=== PATIENT | male | born 1975 | race Caucasian/White ===

== ENCOUNTER → 2018-05-03 12:36 | Outpatient (REF) | payer MEDICAID, SELFPAY | LOC: LBN 12:36 | PROVIDERS: PCP Family Medicine; Visit Provider Family Medicine | DX: L08.9 Local infection of the skin and subcutaneous tissue, unspecified (principal); T14.8XXA Other injury of unspecified body region, initial encounter | CPT/HCPCS: 87077; 87070; 87186; 87205 ==

== ENCOUNTER 2019-10-10 04:18 | Emergency (ER) | payer SELFPAY ==
[2019-10-10] VITALS (72 sets, daily range): BP systolic 113–155; BP diastolic 68–99; PULSE 91–115; RESP 13–25; TEMP 36.4; O2SAT 90–99
--- NOTE | 2019-10-10 04:27 | ED.GENADUL_ITS ---
Discharge Plan Disposition Patient Disposition: HOME Condition: Good Discharge Details Chief Complaint: Chest Pain Clinical Impression: Nausea vomiting and diarrhea, Atypical chest pain, Odynophagia Primary Care Provider: Unknown,Unknown ED Provider: Nury Pereira Home Meds and New Rx's Prescriptions: New ondansetron 4 mg tablet,disintegrating 4 mg PO TID PRN (Reason: nausea and vomiting) Qty: 6 RF: 0 Continued sildenafil [Viagra] 100 MG tablet 0.5 - 1 tab PO As Directed Qty: 30 RF: 5 triamcinolone acetonide 15 GM cream 15 gm Topical TID PRNQty: 1 RF: 1 aspirin 325 MG tablet 325 mg PO DAILY Qty: 90 RF: 4 cyclobenzaprine 5 MG tablet 5 - 10 mg PO TID PRNQty: 30 RF: 0 lisinopril 5 MG tablet 5 mg PO DAILY Qty: 90 RF: 4 hydrochlorothiazide 12.5 MG capsule 12.5 mg PO DAILY Qty: 90 RF: 3 clotrimazole-betamethasone 15 GM cream 15 gm Topical BID Qty: 1 RF: 0 phenytoin sodium extended 100 MG capsule 100 mg PO 1 cap AM 2 caps PM Qty: 270 RF: 4 Metoprolol Succinate 50 MG TAB.ER.24H 50 mg PO DAILY Qty: 90 RF: 4 levothyroxine 200 mcg tablet 200 mcg PO DAILY Qty: 90 RF: 4 naproxen 500 mg tablet,delayed release (DR/EC) 500 mg PO BID Qty: 40 RF: 2 levothyroxine 50 mcg tablet 50 mcg PO DAILY Qty: 90 RF: 4 acetaminophen [Mapap Extra Strength] 500 MG tablet 500 mg PO PRN PRN (Reason: Pain) RF: 0 diltiazem HCl 360 mg Capsule,Extended Release 24 Hr 360 mg PO DAILY RF: 0 ranitidine HCl 150 mg Tablet 150 mg PO BID RF: 0 cholecalciferol (vitamin D3) [Vitamin D3] 25 mcg (1,000 unit) Tablet 2,000 unit PO DAILY RF: 0 lamotrigine 100 MG tablet 100 mg PO DIRECTED RF: 0 Discharge Instructions Instructions: Acute Nausea and Vomiting (ED), Acute Diarrhea (ED) Additional Instructions: Take the Zofran as needed and directed for nausea and vomiting. Drink plenty of fluids and get plenty of rest. Alternate tylenol and motrin as needed and directed for pain. Follow-up with your primary care doctor in 1 week. Return to the emergency department with any worsening or new concerning symptoms. Discharge Data Discharge Date/Time-TO BE ENTERED AT DEPARTURE: 10/10/19 11:54 Discharge Physician: Nury Pereira Medical Decision Making <Maxwell Sue MD - Last Filed: 10/13/19 23:04> Patient presenting with substernal chest pain in relation to 24 hours of vomiting and diarrhea with streaks of blood/hematemesis the last few times. Suspect chest pain more related to esophageal irritation than anything else. Doubt Boerhaave syndrome but with the multiple episodes of forceful vomiting and streaks of blood must consider. As such we will get CT chest and will evaluate for both PE and mediastinal air. Do not suspect dissection. No prior CAD known, just cardiomyopathy and mitral regurg. His EKG is a right bundle branch block but no acute ST changes. HEART score is 3 based on one point for EKG, one point for age and at one point for risk factors. We will hold off on aspirin because of the report of hematemesis. We will give Protonix and Zofran. 07:00 -patient laboratory studies are unremarkable. White count minimally elevated. Hematocrit normal. Electrolytes are fine other than magnesium being slightly low. Anion gap 14 likely from all the vomiting. Liver function is okay. First troponin negative. CT scan read by radiology as likely artifact as opposed to dissection in the ascending aorta. Again dissection was not really in the differential given his presentation. There is no PE. There is no mediastinal air or changes. Patient is feeling better. At this point just some throat discomfort from all the vomiting. Nausea is resolved. Will try some marco ezra. Repeat hemoglobin and hematocrit as well as troponin about 745 this morning. Patient will be signed out to oncoming physician for follow-up of labs and disposition. Suspect patient should be able to go home if tolerating fluids and repeat labs remain normal. Medical Records Medical records reviewed: Yes I reviewed the patient's medical records. Lab Data Lab results reviewed: Yes I reviewed the patient's lab results. ECG Data Attestation: I personally reviewed and interpreted this ECG (s) as follows: Prior ECG tracings: available for review Interpretation: Normal sinus rhythm at a rate of 96. Right bundle branch block present. No acute ST elevation or depression noted. New RBBB compared to last EKG done in 2018. <Nury Pereira DO - Last Filed: 10/10/19 11:55> 0800 -- please see Dr. Sue's note for initial presentation, exam and plan. 44-year-old male with history of obesity, hypertension, GERD, atrial fibrillation and cardiomyopathy presents with vomiting and diarrhea since yesterday. Patient recently started antibiotics for a dental infection. He states that during the vomiting last night, he developed substernal gnawing chest pain with radiation to his throat. He denies any shortness of breath or dizziness. He currently denies current chest pain complaining of only sore throat from frequent vomiting. Patient has had a cardiac work-up including 2- troponins. He has had 2 EKGs both of which have noted a new right bundle branch block and left anterior fascicular block which appear new compared to previous but with no acute ST ischemic changes. CT chest noted thoracic aneurysm and what appears to be artifact rather than dissection. History and presentation not consistent with ACS, dissection or PE. Per Dr. Sue's assessment, presentation appears likely consistent with GI rather than cardiac. Upon my evaluation I am in agreement with this assessment as patient has recently started antibiotics with subsequent vomiting and diarrhea likely causing GI irritation. Case endorsed to follow-up on repeat troponin and hemoglobin hematocrit. Oropharynx noted moderate uvular edema. No exudates. Patient has bilateral periorbital petechiae consistent with forceful vomiting. Will give a GI cocktail and dose of Decadron for uvular edema. 0900 --repeat troponin negative. Repeat hemoglobin and hematocrit within normal range. 0950 --patient's throat feels much better. Heart rate has been in the low 100s to 120s at times. Patient states he has not taken any of his regular medications for 2 days due to his symptoms. We will give him his regular diltiazem, metoprolol and lisinopril. Will finish remaining 500 cc of LR bag and reassess. 1130 --heart rate mid 90s. Patient given total 3 L of fluid. Patient feels much better and is requesting to go home. He denies any further vomiting and denies any chest pain. Patient had O2 saturations between 91 and 99%. Patient has a history of sleep apnea and was sleeping in the past hour. Patient is followed by Dr. Templeton and the [place]. He has a follow-up appointment with a primary care doctor within the next week. Usual and customary return precautions given prior to discharge. Medical Records Medical records reviewed: Yes I reviewed the patient's medical records. Imaging Data Radiologic Study: Radiologist's impression: CT Angiography Chest With Contrast Exam date and time: 10/10/2019 4:47 AM Age: 44 years old Clinical indication: Pain; Other: Pleuritic with hematemesis; Patient HX: Pleuritic cp with hematemesis x5hrs TECHNIQUE: Imaging protocol: Computed tomographic angiography of the chest with intravenous contrast. 3D rendering: MIP and/or 3D reconstructed images were created by the technologist. Radiation optimization: All CT scans at this facility use at least one of these dose optimization techniques: automated exposure control; mA and/or kV adjustment per patient size (includes targeted exams where dose is matched to clinical indication); or iterative reconstruction. Contrast material: [id number]; Contrast volume: 100 ml; Contrast route: IV LT AC 18G; COMPARISON: CR CHEST 2 VIEWS PA,LAT 04/14/2018 5:12 PM FINDINGS: Pulmonary arteries: At the level of the pulmonary artery, the ascending thoracic aorta measures 4.5 cm in diameter, which represents mild aneurysmal dilatation. There are curvilinear lucent lines through the ascending thoracic aorta that likely represent artifacts There are no filling defects in the pulmonary arteries to suggest pulmonary emboli. Aorta: Unremarkable. No aortic aneurysm. No aortic dissection. Lungs: Nonspecific bibasilar consolidation is present, consistent with atelectasis, edema, or pneumonia. Pleural space: Unremarkable. No pneumothorax. No pleural effusion. Heart: There is no pericardial effusion. Mediastinum: There is a small hiatal hernia. Lymph nodes: No enlarged mediastinal lymph nodes or masses identified. Bones/joints: The spine demonstrates mild degenerative changes at multiple levels. Soft tissues: Unremarkable. IMPRESSION: 1. Mild aneurysmal dilatation of the ascending thoracic aorta. There are multiple curvilinear in opacities in the ascending thoracic aorta that extend beyond the aortic wall and likely represent artifacts rather than dissection. 2. No evidence of pulmonary embolus. 3. A small hiatal hernia versus thickening of the distal esophagus. 4. Nonspecific atelectasis or consolidation of the lung bases. Lab Data Lab results reviewed: Yes I reviewed the patient's lab results. Labs: Laboratory Tests Range/Units 10/10/19 10/10/19 10/10/19 04:35 04:35 04:35 WBC (4.4-10.8) k/cumm 12.67 H RBC (4.50-6.00) m/cumm 4.60 Hgb (13.5-17.5) g/dL 15.6 Hct (40.0-50.0) % 44.2 MCV (80-95) fL 96.1 H MCH (27.0-33.0) pg 33.9 H MCHC (32.0-36.0) g/dL 35.3 RDW (11.8-14.1) % 12.0 Plt Count (130-400) x1000/uL 336 MPV (8.0-11.0) fL 9.2 Immature Gran % % 0.4 Neutrophils % 89.1 Lymphocytes % 4.3 Monocytes % 5.9 Eosinophils % 0.2 Basophils % 0.1 Absolute Neutrophils (1.2-6.7) k/cumm 11.29 H Absolute Lymphocytes (1.2-3.4) k/cumm 0.54 L Absolute Monocytes (0.11-0.7) k/cumm 0.75 H Absolute Eosinophils (0.0-0.7) k/cumm 0.03 Absolute Basophils (0.0-0.2) k/cumm 0.01 RBC Morphology See below Polychromasia Present PT (9.3-11.0) sec 10.8 INR (0.9-1.1) 1.1 APTT (21.0-31.4) sec 23.7 Sodium (136-145) mmol/L 136 Potassium (3.5-5.1) mmol/L 3.6 Chloride (98-107) mmol/L 95 L Carbon Dioxide (21.0-32.0) mmol/L 26.9 Anion Gap (3-11) mmol/L 14.1 H BUN (7-18) mg/dL 12 Creatinine (0.70-1.30) mg/dL 0.91 Estimated GFR/1.73 m2 (mL/min/1.73m2) >= 60.00 Glucose (74-106) mg/dL 102 Calcium (8.5-10.1) mg/dL 9.5 Magnesium (1.8-2.4) mg/dL 1.7 L Total Bilirubin (0.2-1.0) mg/dL 0.8 AST (15-37) U/L 47 H ALT (16-63) U/L 46 Alkaline Phosphatase (46-116) U/L 139 H Troponin I (<0.06) ng/Ml < 0.05 Total Protein (6.4-8.2) g/dL 8.1 Albumin (3.4-5.0) g/dL 4.4 Range/Units 10/10/19 10/10/19 07:45 07:45 WBC (4.4-10.8) k/cumm RBC (4.50-6.00) m/cumm Hgb (13.5-17.5) g/dL 14.9 Hct (40.0-50.0) % 41.1 MCV (80-95) fL MCH (27.0-33.0) pg MCHC (32.0-36.0) g/dL RDW (11.8-14.1) % Plt Count (130-400) x1000/uL MPV (8.0-11.0) fL Immature Gran % % Neutrophils % Lymphocytes % Monocytes % Eosinophils % Basophils % Absolute Neutrophils (1.2-6.7) k/cumm Absolute Lymphocytes (1.2-3.4) k/cumm Absolute Monocytes (0.11-0.7) k/cumm Absolute Eosinophils (0.0-0.7) k/cumm Absolute Basophils (0.0-0.2) k/cumm RBC Morphology Polychromasia PT (9.3-11.0) sec INR (0.9-1.1) APTT (21.0-31.4) sec Sodium (136-145) mmol/L Potassium (3.5-5.1) mmol/L Chloride (98-107) mmol/L Carbon Dioxide (21.0-32.0) mmol/L Anion Gap (3-11) mmol/L BUN (7-18) mg/dL Creatinine (0.70-1.30) mg/dL Estimated GFR/1.73 m2 (mL/min/1.73m2) Glucose (74-106) mg/dL Calcium (8.5-10.1) mg/dL Magnesium (1.8-2.4) mg/dL Total Bilirubin (0.2-1.0) mg/dL AST (15-37) U/L ALT (16-63) U/L Alkaline Phosphatase (46-116) U/L Troponin I (<0.06) ng/Ml < 0.05 Total Protein (6.4-8.2) g/dL Albumin (3.4-5.0) g/dL ECG Data Attestation: I personally reviewed and interpreted this ECG (s) as follows: Interpretation: #1 --Rate of 96, sinus, right bundle branch block and left anterior fascicular block. SC 154. QTc 521. QRS 160. #2 --Rate of 108, sinus, right bundle branch block, left anterior fascicular block. SC 146. QTc 423. QRS 156. HPI <Maxwell Sue MD - Last Filed: 10/13/19 23:04> General Mode of arrival: ambulatory . Date/Time Provider Initiated Documentation: 10/10/19 04:22 . Limitations to Documentation: no limitations . Information obtained by: patient, RN notes reviewed and old records reviewed . HPI Narrative: Patient presents to ED with complaint of substernal chest pain started about 1 AM. Patient has had nausea, vomiting and diarrhea for about 24 hours. He has had no abdominal pain. The last few times he has been vomiting tonight he has noticed streaks of blood. The pain in his chest does not radiate anywhere. Not really pleuritic in nature. Does not feel short of breath. Has no fever or abdominal pain. Has no leg pain or leg swelling. Has history of cardiomyopathy and mitral regurg with occasional atrial fibrillation. He is not on blood thinners but he does take aspirin. Has a history of hypertension but no other cardiac risk factors and has never had an [facility]. Related Data Home Medications Medication Instructions Recorded Confirmed acetaminophen [Mapap Extra 500 mg PO PRN PRN 04/21/13 10/10/19 Strength] sildenafil [Viagra] 0.5 - 1 tab PO As Directed #30 09/28/15 10/10/19 tab-cap triamcinolone acetonide 15 gm TOPICAL TID PRN #1 script 04/26/16 10/10/19 aspirin 325 mg PO DAILY #90 tab-cap 10/23/17 10/10/19 cyclobenzaprine 5 - 10 mg PO TID PRN #30 tab-cap 12/03/17 10/10/19 lisinopril 5 mg PO DAILY #90 tab-cap 01/07/18 10/10/19 hydrochlorothiazide 12.5 mg PO DAILY #90 tab-cap 04/05/18 10/10/19 clotrimazole-betamethasone 15 gm TOPICAL BID #1 tub 04/12/18 10/10/19 phenytoin sodium extended 100 mg PO 1 cap AM 2 caps PM #270 05/09/18 10/10/19 cap NS levothyroxine 200 mcg tablet 200 mcg PO DAILY #90 tab-cap 06/24/18 10/10/19 levothyroxine 50 mcg tablet 50 mcg PO DAILY #90 tab-cap 06/24/18 10/10/19 naproxen 500 mg tablet,delayed 500 mg PO BID #40 tab-cap 06/24/18 10/10/19 release cholecalciferol (vitamin D3) 2,000 unit PO DAILY 10/10/19 10/10/19 [Vitamin D3] diltiazem HCl 360 mg PO DAILY 10/10/19 10/10/19 lamotrigine 100 mg PO DIRECTED 10/10/19 10/10/19 ondansetron 4 mg PO TID PRN #6 tab 10/10/19 ranitidine HCl 150 mg PO BID 10/10/19 10/10/19 Previous Rx's Medication Instructions Recorded aspirin 325 mg PO DAILY #90 tab-cap 10/23/17 lisinopril 5 mg PO DAILY #90 tab-cap 01/07/18 hydrochlorothiazide 12.5 mg PO DAILY #90 tab-cap 04/05/18 clotrimazole-betamethasone 15 gm TOPICAL BID #1 tub 04/12/18 phenytoin sodium extended 100 mg PO 1 cap AM 2 caps PM #270 05/09/18 cap NS levothyroxine 200 mcg tablet 200 mcg PO DAILY #90 tab-cap 06/24/18 levothyroxine 50 mcg tablet 50 mcg PO DAILY #90 tab-cap 06/24/18 naproxen 500 mg tablet,delayed 500 mg PO BID #40 tab-cap 06/24/18 release ondansetron 4 mg PO TID PRN #6 tab 10/10/19 Allergies Allergy/AdvReac Type Severity Reaction Status Date / Time No Known Allergies Allergy Unverified 10/10/19 04:25 General Stated Complaint: Chest Pain JUSTINA: 2 Review of Systems <Maxwell Sue MD - Last Filed: 10/13/19 23:04> Narrative: 07/07 Review of Systems completed and is negative except as stated above in HPI (Systems reviewed: Const, Eyes, ENT, Resp, CV, GI, , MSK, Skin, Neuro) PFSH <Maxwell Sue MD - Last Filed: 10/13/19 23:04> Medical History Afib (Chronic) Cardiomyopathy (Chronic 07/30/08) Depression (Chronic) Essential hypertension (Chronic 08/07/13) GERD (gastroesophageal reflux disease) (Chronic 07/30/08) Hypothyroid (Chronic) Mitral valve regurgitation (Chronic 07/30/08) Obstructive sleep apnea syndrome in adult (Chronic 07/30/08) Seizure disorder (Chronic 03/17/13) Surgical History Cholecystectomy (Inactive) Vasectomy (Inactive) Family History Mother Diabetes Stroke Father Diabetes Essential hypertension Depression Heart disease Neoplasm Asthma Sister Depression Grandfather Heart disease Grandfather Heart disease Myocardial infarction Grandmother No problems noted. Grandmother Essential hypertension Heart disease Son No problems noted. 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 Elevated blood pressure otherwise normal vitals and normal room air pulse oximetry. Const: WDWN male in NAD. HEENT: NC/AT. Normal facial exam. Severe gingival hyperplasia. Eyes: Normal conjunctiva and sclera. Neck: Supple. Trachea midline. Lungs: Normal respiratory effort. Lungs are clear. No chest wall tenderness. Cor: RRR with loud murmur heard best at apex. Good radial pulses. GI: Soft. NT/ND. No guarding or rebound. Neuro: A+O x 3. Normal speech, mentation, gait. No gross motor or sensory deficit. Ext: No C/C/E. No calf tenderness. Skin: Warm and dry without rash. Course <Maxwell Sue MD - Last Filed: 10/13/19 23:04> Vital Signs Vital signs: Vital Signs Temperature 97.5 F L 10/10/19 04:20 Pulse 96 H 10/10/19 04:20 Respiratory Rate 18 10/10/19 04:20 Blood Pressure 152/99 H 10/10/19 04:20 Pulse Oximetry 99 10/10/19 04:20 Temperature 97.5 F L 10/10/19 04:20 Temperature Source Skin 10/10/19 04:20 Pulse 96 H 10/10/19 04:20 Respiratory Rate 18 10/10/19 04:20 Blood Pressure 152/99 H 10/10/19 04:20 Pulse Oximetry 99 10/10/19 04:20 Comment 10/10/19 04:20 Sign Out <Maxwell Sue MD - Last Filed: 10/13/19 23:04> Sign Out Data: Sign Out Comment: Repeat troponin and hematocrit pending. Second EKG unchanged from previous done earlier with continued right bundle branch block only. Anticipate discharge if hematocrit stable and troponin remains flat. Last updated by Maxwell Sue MD at 10/10/19 08:00
[2019-10-10] MEDS: Pantoprazole 40 MG VIAL IVP (04:56)
[2019-10-10] MEDS: Lactated Ringers 1,000 ML 1000 ML IV (04:56)
[2019-10-10] MEDS: Ondansetron 4 MG/2 ML VIAL IVP (04:59)
[2019-10-10 05:05] LABS: Abs Immature Grans 0.05 k/cumm (0.0-0.09); Absolute Basophil Count 0.01 k/cumm (0.0-0.2); Absolute Lymphocyte Count 0.54 k/cumm (1.2-3.4); Absolute Monocyte Count 0.75 k/cumm (0.11-0.7); Basophils % 0.1; Eosinophils % 0.2; Immature Grans % 0.4 %; Lymphocytes % 4.3; Mean Corpuscular Hemoglobin 33.9 pg (27.0-33.0); Mean Platelet Volume 9.2 fL (8.0-11.0); Monocytes % 5.9; Neutrophils % 89.1; Platelet Count 336 x1000/uL (130-400); White Blood Cell Count 12.67 k/cumm (4.4-10.8)
[2019-10-10 05:18] LABS: INR 1.1 (0.9-1.1); PTT Activated 23.7 sec (21.0-31.4); Prothrombin Time 10.8 sec (9.3-11.0)
[2019-10-10 05:20] LABS: ALT 46 U/L (16-63); AST 47 U/L (15-37); Albumin 4.4 g/dL (3.4-5.0); Alkaline Phosphatase 139 U/L (46-116); Anion Gap 14.1 mmol/L (3-11); BUN 12 mg/dL (7-18); Bilirubin, Total 0.8 mg/dL (0.2-1.0); CO2 26.9 mmol/L (21.0-32.0); CREATININE 0.91 mg/dL (0.70-1.30); Calcium 9.5 mg/dL (8.5-10.1); Chloride 95 mmol/L (98-107); Glucose 102 mg/dL (74-106); Magnesium 1.7 mg/dL (1.8-2.4); Potassium 3.6 mmol/L (3.5-5.1); Sodium 136 mmol/L (136-145); Total Protein 8.1 g/dL (6.4-8.2)
[2019-10-10 05:21] LABS: Troponin I < 0.05 ng/Ml (<0.06)
[2019-10-10 05:33] LABS: Absolute Eosinophil Count 0.03 k/cumm (0.0-0.7); Absolute Neutrophil Count 11.29 k/cumm (1.2-6.7); HCT 44.2 % (40.0-50.0)
[2019-10-10 05:34] LABS: HGB 15.6 g/dL (13.5-17.5); Mean Corp. HGB Concentration 35.3 g/dL (32.0-36.0); Mean Corpuscular Volume 96.1 fL (80-95)
[2019-10-10 05:37] LABS: Polychromasia Present
[2019-10-10] MEDS: Omnipaque 350 MG/ML 100 ML BTL IJ (05:40)
--- NOTE | 2019-10-10 05:48 | DI.CT_ITS ---
EXAM: CT CHEST PE CTA CLINICAL HISTORY: pleuritic chest pain; hematemesis TECHNIQUE: Post IV contrast. COMPARISON: CHEST 2 VIEWS PA,LAT from 04/14/2018 FINDINGS: Is mild respiratory motion at the lung bases. There is also motion at the level of the aortic root. No pulmonary emboli or aortic dissection is seen. There is mild dilatation of the ascending aorta to a maximal diameter of 4.5 cm. No coronary artery or aortic calcifications are seen. There appear s to be left ventricular hypertrophy as well as dilatation of the left atrium. There are no pleural or pericardial effusions. There are mild dependent changes in the lungs. No pneumothorax, mass or a denopathy is seen. Degenerative changes are noted in the spine. There is apparent thickening of the wall of the distal esophagus. The remainder of the visualized portions of the upper abdomen are unr emarkable. IMPRESSION: No evidence of pulmonary emboli or other acute abnormality.
[2019-10-10] MEDS: Lactated Ringers 1,000 ML 150 ML IV (06:12)
--- NOTE | 2019-10-10 06:30 | DI.VRAD_ITS ---
PROCEDURE INFORMATION: Exam: CT Angiography Chest With Contrast Exam date and time: 10/10/2019 4:47 AM Age: 44 years old Clinical indication: Pain; Other: Pleuritic with hematemesis; Patient HX: Pleuritic cp with hematemesis x5hrs TECHNIQUE: Imaging protocol: Computed tomographic angiography of the chest with intravenous contrast. 3D rendering: MIP and/or 3D reconstructed images were created by the technologist. Radiation optimization: All CT scans at this facility use at least one of these dose optimization techniques: automated exposure control; mA and/or kV adjustment per patient size (includes targeted exams where dose is matched to clinical indication); or iterative reconstruction. Contrast material: [id number]; Contrast volume: 100 ml; Contrast route: IV LT AC 18G; COMPARISON: CR CHEST 2 VIEWS PA,LAT 04/14/2018 5:12 PM FINDINGS: Pulmonary arteries: At the level of the pulmonary artery, the ascending thoracic aorta measures 4.5 cm in diameter, which represents mild aneurysmal dilatation. There are curvilinear lucent lines through the ascending thoracic aorta that likely represent artifacts There are no filling defects in the pulmonary arteries to suggest pulmonary emboli. Aorta: Unremarkable. No aortic aneurysm. No aortic dissection. Lungs: Nonspecific bibasilar consolidation is present, consistent with atelectasis, edema, or pneumonia. Pleural space: Unremarkable. No pneumothorax. No pleural effusion. Heart: There is no pericardial effusion. Mediastinum: There is a small hiatal hernia. Lymph nodes: No enlarged mediastinal lymph nodes or masses identified. Bones/joints: The spine demonstrates mild degenerative changes at multiple levels. Soft tissues: Unremarkable. IMPRESSION: 1. Mild aneurysmal dilatation of the ascending thoracic aorta. There are multiple curvilinear in opacities in the ascending thoracic aorta that extend beyond the aortic wall and likely represent artifacts rather than dissection. 2. No evidence of pulmonary embolus. 3. A small hiatal hernia versus thickening of the distal esophagus. 4. Nonspecific atelectasis or consolidation of the lung bases. Findings were discussed with LENCHO LINDO at 10/10/2019 6:29 AM EST. Dictated and Authenticated by: Samy Muñzi MD. Ordering:CHLOE Arreola MD
[2019-10-10 08:07] LABS: Troponin I < 0.05 ng/Ml (<0.06)
[2019-10-10 08:38] LABS: HCT 41.1 % (40.0-50.0); HGB 14.9 g/dL (13.5-17.5)
[2019-10-10] MEDS: Dexamethasone 10 MG/ML VIAL IVP (09:01)
[2019-10-10] MEDS: Lisinopril 5 MG TAB PO (10:30)
[2019-10-10] MEDS: Metoprolol CR 50 MG TABCR PO (10:30)
[2019-10-10] MEDS: dilTIAZem CD 180 MG CAPCR 360 MG PO (10:30)
[2019-10-10] MEDS: Normal Saline 1,000 ML 1000 ML IV (10:46)
== END 2019-10-10 11:54 | disposition home or self-care (01) ==
PROVIDERS: Emergency Medicine; Emergency Provider Physician Assistant
DX: R07.89 Other chest pain (principal); R11.2 Nausea with vomiting, unspecified; R19.7 Diarrhea, unspecified; R13.10 Dysphagia, unspecified; I10 Essential (primary) hypertension; I48.91 Unspecified atrial fibrillation
CPT/HCPCS: 36415; 71275; 80053; 93005; 96361; 96374; 96375; 99285; 83735; 84484; 85014; 85018; 85025; 85610; 85730; 93010; J1100; J2405; J3490

== ENCOUNTER 2022-09-23 13:56 | Emergency (ER) | payer OTHER, SELFPAY ==
[2022-09-23 14:47] VITALS: BP 162/92; PULSE 80; RESP 18; TEMP 37; O2SAT 99
--- NOTE | 2022-09-23 16:17 | ED.GENADUL_ITS ---
Discharge Plan Disposition Patient Disposition: Home Condition: Stable Discharge Details Clinical Impression: Abscess, dental Primary Care Provider: Unknown,Unknown ED Provider: Magdiel Cerda Home Meds and New Rx's Prescriptions: New amoxicillin-pot clavulanate 875-125 mg tablet 1 tab PO Q12H 7 Days Qty: 14 0RF Continued sildenafil [Viagra] 100 MG tablet 0.5 - 1 tab PO As Directed Qty: 30 Rx Instructions: 1/2 to 1 tab 2 hours before intercourse aspirin 325 MG tablet 325 mg PO DAILY Qty: 90 4RF cyclobenzaprine 5 MG tablet 5 - 10 mg PO TID PRNQty: 30 Rx Instructions: Take 1 to 2 tabs by mouth 3 times a day as needed for pain. Take first dose at home so you know how your body reacts lisinopril 5 MG tablet 5 mg PO DAILY Qty: 90 4RF hydrochlorothiazide 12.5 MG capsule 12.5 mg PO DAILY Qty: 90 3RF phenytoin sodium extended 100 MG capsule 100 mg PO 1 cap AM 2 caps PM Qty: 270 4RF Rx Instructions: Dilantin NAME BRAND ONLY Metoprolol Succinate 50 MG TAB.ER.24H 50 mg PO DAILY Qty: 90 4RF acetaminophen [Mapap Extra Strength] 500 MG tablet 500 mg PO PRN PRN (Reason: Pain) levothyroxine 50 mcg tablet 150 mcg PO DAILY Rx Instructions: Take with 200 mcg tablet naproxen 500 mg tablet,delayed release (DR/EC) 500 mg PO BID PRN diltiazem HCl 360 mg Capsule,Extended Release 24 Hr 360 mg PO DAILY cholecalciferol (vitamin D3) [Vitamin D3] 25 mcg (1,000 unit) Tablet 2,000 unit PO DAILY lamotrigine 100 MG tablet 100 mg PO DIRECTED Rx Instructions: 300MG QAM, 400MG QPM Discharge Instructions Instructions: Dental Abscess (ED) Additional Instructions: Please perform salt water rinses at least 3 times daily. You may gently massage the swollen area to assist with draining of the abscess. If you develop any new or worsening symptoms please return immediately to the emergency department. Please continue to take your antibiotic until fully gone unless directed otherwise by your dental provider. Please keep your follow-up appointment with your dentist for later this week. Discharge Data Discharge Date/Time-TO BE ENTERED AT DEPARTURE: 09/23/22 16:30 Medical Decision Making Patient with dental abscess to tooth number 28. . no signs of deep neck space i nfection ( Retropharyngeal abscess, Mikie's angina, Parapharyngeal space infection, Peritonsillar Abscess (ADMITTED ATTORNEYS)) or Epiglottitis. Pt non toxic and stable. Discussed risks would not benefit of procedure with patient who agreed to have needle drainage of the area. Patient placed upon Augmentin and patient already has appointment scheduled for later this week for definitive care of the dental fracture. After discussion of diagnosis and plan of care patient has no further needs, questions, or concerns and states clear understanding to return to the emergency department for any worsening symptoms. This documentation was generated using Sferra dictation system, please disregard any oddities of phrase or misspellings. HPI General Mode of arrival: ambulatory . Date/Time Provider Initiated Documentation: 09/23/22 15:49 . Limitations to Documentation: no limitations . Information obtained by: patient . History of Present Illness 47 year old M presents to the emergency department with the chief complaint of Dental pain, described as mild, Quality is described as aching, and is localized to the mouth. Patient started experiencing this day(s) (3) and it has been con stant. No relieving factors improve symptom(s), Patient notes no other symptoms.. Patient did receive the following treatments prior to arrival, NSAID Related Data Home Medications Medication Instructions Recorded Confirmed acetaminophen 500 mg tablet (Mapap 500 mg PO PRN PRN Pain 04/21/13 09/23/22 Extra Strength) sildenafil 100 mg tablet (Viagra) 0.5 - 1 tab PO As Directed #30 09/28/15 09/23/22 tab-caps aspirin 325 mg tablet 325 mg PO DAILY #90 tab-caps 10/23/17 09/23/22 cyclobenzaprine 5 mg tablet 5 - 10 mg PO TID PRN #30 tab-caps 12/03/17 09/23/22 lisinopril 5 mg tablet 5 mg PO DAILY #90 tab-caps 01/07/18 09/23/22 hydrochlorothiazide 12.5 mg capsule 12.5 mg PO DAILY #90 tab-caps 04/05/18 09/23/22 phenytoin sodium extended 100 mg 100 mg PO 1 cap AM 2 caps PM #270 05/09/18 09/23/22 capsule caps cholecalciferol (vitamin D3) 25 2,000 unit PO DAILY 10/10/19 09/23/22 mcg (1,000 unit) tablet (Vitamin D3) diltiazem HCl 360 mg capsule,24 360 mg PO DAILY 10/10/19 09/23/22 hr,extended release lamotrigine 100 mg tablet 100 mg PO DIRECTED 10/10/19 09/23/22 amoxicillin 875 mg-potassium 1 tab PO Q12H 7 days #14 tabs 09/23/22 clavulanate 125 mg tablet levothyroxine 50 mcg tablet 150 mcg PO DAILY 09/23/22 09/23/22 naproxen 500 mg tablet,delayed 500 mg PO BID PRN 09/23/22 09/23/22 release Previous Rx's Medication Instructions Recorded aspirin 325 mg tablet 325 mg PO DAILY #90 tab-caps 10/23/17 lisinopril 5 mg tablet 5 mg PO DAILY #90 tab-caps 01/07/18 hydrochlorothiazide 12.5 mg capsule 12.5 mg PO DAILY #90 tab-caps 04/05/18 phenytoin sodium extended 100 mg 100 mg PO 1 cap AM 2 caps PM #270 05/09/18 capsule caps amoxicillin 875 mg-potassium 1 tab PO Q12H 7 days #14 tabs 09/23/22 clavulanate 125 mg tablet Allergies Allergy/AdvReac Type Severity Reaction Status Date / Time No Known Allergies Allergy Unverified 09/23/22 14:52 General Stated Complaint: DentalOral JUSTINA: 4 Review of Systems Constitutional Constitutional: Denies chills and Denies fever(s) ENT Ears, Nose, Mouth, and Throat: Reports as per HPI, Denies change in voice, Reports dental pain, Denies dysphagia, Denies throat swelling and Denies tongue swelling Cardiovascular Cardiovascular: Denies chest pain and Denies dyspnea Respiratory Respiratory: Denies dyspnea, Denies stridor and Denies wheezing Gastrointestinal Gastrointestinal: Denies abdominal pain, Denies dysphagia, Denies nausea and Denies vomiting Integumentary/Breasts Skin/Breast: Denies rash Allergic/Immunologic Allergic/Immunologic: Denies throat swelling, Denies tongue swelling and Denies wheezing PFSH All Active Problems (Updated 09/23/22 @ 16:18 by Magdiel Cerda NP) Abscess, dental (Acute) Afib (Chronic) Depression (Chronic) Essential hypertension (Chronic 08/07/13) Seizure disorder (Chronic 03/17/13) Obstructive sleep apnea syndrome in adult (Chronic 07/30/08) Mitral valve regurgitation (Chronic 07/30/08) GERD (gastroesophageal reflux disease) (Chronic 07/30/08) Cardiomyopathy (Chronic 07/30/08) Hypothyroid (Chronic) Family History Mother Diabetes Stroke Father Diabetes Essential hypertension Depression Heart disease Neoplasm Asthma Sister Depression Grandfather Heart disease Grandfather Heart disease Myocardial infarction Grandmother No problems noted. Grandmother Essential hypertension Heart disease Son No problems noted. 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 Pets and animals: Yes Pets and animals: dog(s) What type of physical activity do you participate in: none Maribel/Cheondoism: Jewish Special maribel needs: No Do you feel safe at home: Yes Do you feel safe in your relationship?: Yes Exam Const General: cooperative Orientation: alert, awake and oriented x3 Limitations: mental status not altered HENMT Head: normal to inspection, normocephalic and atraumatic Ears: hearing grossly normal bilaterally, normal mastoids bilaterally and no periauricular adenopathy General nose exam: external nose normal Mouth: oropharynx normal, no drooling, no muffled voice, normal tongue and no trismus Teeth and gingiva: abnormal tooth or associated gingiva lower right second bicuspid tender, with associated gingival edema, with associated gingival fluctuance, enamel fractured and dentin fractured and caries Throat: posterior oropharynx normal, tonsils normal and uvula midline Eyes General: appearance normal, both eyes and all related structures Pupils: PERRL Neck Neck: normal visual inspection, full ROM, no lymphadenopathy, no meningeal signs, trachea midline, supple, no anterior neck swelling and no midline deformity Resp Effort & Inspection: normal respiratory effort and able to speak in complete sentences Course Vital Signs Vital signs: Vital Signs Temperature 37.0 C 09/23/22 14:47 Pulse 80 09/23/22 14:47 Respiratory Rate 18 09/23/22 14:47 Blood Pressure 162/92 H 09/23/22 14:47 Pulse Oximetry 99 09/23/22 14:47 Temperature 37.0 C 09/23/22 14:47 Temperature Source Tympanic 09/23/22 14:47 Pulse 80 09/23/22 14:47 Respiratory Rate 18 09/23/22 14:47 Respiratory Effort Non-Labored 09/23/22 14:50 Blood Pressure 162/92 H 09/23/22 14:47 Blood Pressure Position Sitting 09/23/22 14:47 Pulse Oximetry 99 09/23/22 14:47 Oxygen Delivery Method Room Air 09/23/22 14:47 Oxygen Flow Rate 0 09/23/22 14:47 Pain Level 3 09/23/22 14:55 Procedures Abscess I/D Site: Other (dental) Side (if applicable): Right Local Anesthetic: Lidocaine 1% Amount of anesthesia used (mL): 2 Technique: Needle Aspiration Amount of fluid expressed (mL): 2 Irrigation: No Packing used?: None
[2022-09-23] MEDS: Lidocaine 1% Multi-Dose 50 ML VIAL IJ (16:20)
[2022-09-23] MEDS: Amox. 875/Clav. 125, 2 TABS/BTL 1 TAB PO (16:20)
[2022-09-23] MEDS: Amoxicillin 875/Clav. 125 TAB PO (16:20)
== END 2022-09-23 16:30 | disposition home or self-care (01) ==
PROVIDERS: Emergency Provider Nurse Practitioner Family
DX: K04.7 Periapical abscess without sinus (principal)
CPT/HCPCS: 10060

== ENCOUNTER 2024-04-14 13:48 | Outpatient (CLI) | payer OTHER, SELFPAY ==
[2024-04-14 11:19] LABS: HCT 47.3 % (40.0-50.0); MCH 32.1 pg (27.0-33.0); MCHC 33.8 % (32.0-36.0); MCV 95 fL (80-95); MPV 8.7 fL (8.0-11.0); Platelet Count 212 10^3/uL (130-400); RBC 4.98 10^6/uL (4.36-5.78); RDW 13.6 % (11.8-14.1); RDW-SD 48.4 fL; WBC 4.43 10^3/uL (4.4-10.8)
[2024-04-14 12:04] LABS: INR 2.4 (0.9-1.1); Prothrombin Time 22.5 sec (9.1-11.1)
--- OUTSIDE RECORDS SUMMARY | 2024-04-14 13:53 | XMS_ITS | Referral Summary ---
Author Organization [facility] Address [address] [place] [address] Care Team Providers Care Bricklayer Supervisor Name Role Phone David Templeton MD Primary Care Provider [phone] Social History Tobacco Use Types Packs/Day Years Used Date Smoking Tobacco: Never Assessed Sex and Gender Information Value Date Recorded Sex Assigned at Not on file Gender Identity Not on file Sexual Orientation Not on file Plan of Treatment Not on file Care Teams Bricklayer Supervisor Relationship Specialty Start Date End Date David Templeton MD PCP - General 05/11/14
--- OUTSIDE RECORDS SUMMARY | 2024-04-14 13:53 | XMS_ITS | Encounter Summary ---
Author Organization [facility] Address [address] [place] [address] Care Team Providers Care Smelting Engineer Name Role Phone Angelia Templeton MD Primary Care Provider [phone] Encounter Details Date Type Department Care Team (Late st Contact Info) Description 11/17/2016 Results Only [facility] [place] [phone] Angelia Templeton MD [address] [place] [phone] Social History Tobacco Use Types Packs/Day Years Used Date Smoking Tobacco: Never Assessed Sex and Gender Information Value Date Recorded Sex Assigned at Not on file Gender Identity Not on file Sexual Orientation Not on file documented as of this encounter Plan of Treatment Not on file documented as of this encounter Procedures Procedure Name Priority Date/Time Associated Diagnosis Comments SURGICAL PATHOLOGY Routine 11/17/2016 8:47 EST documented in this encounter Results * SURGICAL PATHOLOGY (11/17/2016 8:47 EST) Pathology Report: SURGICAL PATHOLOGY REPORT Reports generated via electronic interface contain original data; however they are lacking the format of the original report. Caution should be taken when reading/interpret ing unformatted reports. Name: ? BISMARK MAR ? Accession #: ? [id number] ? : ? 1975 (Age: 41) ??M ? Collect Date: ? 11/17/2016 ? Location: ? [facility] ? Receive Date: ? 11/21/2016 ? Provider: ANGELIA TEMPLETON MD Copy to: ? Final Pathologic Diagnosis: SKIN OF LEG, LEFT LOWER, PUNCH BIOPSY: - Reactive epidermal changes with dermal fibrosis and pigment deposition. ??See comment. Comment: The biopsy shows reactive epidermal hyperplasia with mid dermal fibrosis. Within the area of fibrosis, there are numerous histiocytes containing granular brown-yellow pigment. ??The pigment includes both hemosiderin and melanin, as demonstrated on iron and Nelson-Oli stains. ??This combination of pigmentation can be seen with certain medications, most notably minocycline. Correlation with the clinical history is recommended. ??Although hemosiderin deposition is also seen in chronic venous stasis and other vasculopathies, the vessels do not have appreciable changes and the presence of melanin makes this less likely. ??(Dr. Pulido)/juancarlos Microscopic Description: Sections consist of a bisected punch biopsy of skin that includes subcutis. ??The stratum corneum has mild hyperkeratosis. ??The epidermis is acanthotic and shows reactive changes with a thickened granular layer. ??Superficially within the dermis, blood vessels are somewhat prominent and mildly dilated. ??There is minimal erythrocyte extravasation and inflammation. ??Deeper in the dermis, the collagen bundles appear somewhat thickened. ??There is an interstitial infiltrate of spindled and oval cells. ??The cells have abundant granular yellow-brown pigment. ??On sections prepared with iron stain, much of the pigment is staining. Similar features are also seen on sections prepared with Nelson-Oli stain. (Dr. Pulido)/juancarlos Document reviewed and electronically signed by: RYAN PULIDO MD Report ??Date: 11/23/2016 13:54 By the signature above, the attending physician certifies that he/she has personally conducted a gross and/or microscopic examination of the described specimens and rendered or confirmed the above diagnosis. Specimen(s) Received: Punch bx lesion left lower leg Clinical History: Not listed ? Gross Description: ? Received in formalin labelled with proper patient identification (initials D, D) and L leg is a punch biopsy of cano-frank skin (0.4 cm in diameter and 0.5 cm in thickness). Bisected and entirely submitted in 1. ABDULAZIZ Fuller (ASCP) 11/21/2016 2:38 PM End of Report [facility] 11/17/2016 8:47 EST 11/21/2016 8:47 EST Angelia Templeton MD PATHOLOGY ORDERABLES [facility] [address] [place] [address] documented in this encounter Visit Diagnoses Not on filedocumented in this encounter Care Teams Smelting Engineer Relationship Specialty Start Date End Date Angelia Templeton MD PCP - General 05/11/14 documented as of this encounter
--- OUTSIDE RECORDS SUMMARY | 2024-04-14 13:53 | XMS_ITS | Encounter Summary ---
Author Organization [facility] Address [address] [place] [address] Care Team Providers Care Charging Board Operator Name Role Phone David Templeton MD Primary Care Provider [phone] Encounter Details Date Type Department Care Team (Latest Contact Info) Description 11/17/2016 9:48 EST - 11/17/2016 23:59 EST Hospital Encounter [address] [address] Unknown, Provider, Discharge Disposition: Home or Self Care Social History Tobacco Use Types Packs/Day Years Used Date Smoking Tobacco: Never Assessed Sex and Gender Information Value Date Recorded Sex Assigned at Not on file Gender Identity Not on file Sexual Orientation Not on file documented as of this encounter Discharge Disposition Disposition Code Departure Means Destination Home or Self [facility]sp documented in this encounter Plan of Treatment Not on file documented as of this encounter Visit Diagnoses Not on filedocumented in this encounter Care Teams Charging Board Operator Relationship Specialty Start Date End Date David Templeton MD PCP - General 05/11/14 documented as of this encounter
--- OUTSIDE RECORDS SUMMARY | 2024-04-14 13:53 | XMS_ITS | Encounter Summary ---
Author Organization [facility] Address [address] [place] [address] Care Team Providers Care Spearer Name Role Phone Unavailable Primary Care Provider Unavailabl e Encounter Details Date Type Department Care Team (Latest Contact Info) Description 05/04/2014 17:03 EDT - 05/04/2014 23:59 EDT Hospital Encounter [address] [address] Unknown, Provider, Discharge Disposition: Home or Self Care Social History Tobacco Use Types Packs/Day Years Used Date Smoking Tobacco: Never Assessed Sex and Gender Information Value Date Recorded Sex Assigned at Not on file Gender Identity Not on file Sexual Orientation Not on file documented as of this encounter Discharge Disposition Disposition Code Departure Means Destination Home or Self Prison documented in this encounter Plan of Treatment Not on file documented as of this encounter Visit Diagnoses Not on filedocumented in this encounter
--- OUTSIDE RECORDS SUMMARY | 2024-04-14 13:53 | XMS_ITS | Clinical Summary ---
Author Organization [facility] Address [address] [place] [address] Care Team Providers Care Boat Operator Name Role Phone David Templeton MD Primary Care Provider [phone] Social History Tobacco Use Types Packs/Day Years Used Date Smoking Tobacco: Never Assessed Sex and Gender Information Value Date Recorded Sex Assigned at Not on file Gender Identity Not on file Sexual Orientation Not on file Plan of Treatment Health Maintenance Due Date Last Done Comments Hepatitis C Screen 1975 Hepatitis B Vaccine (1 of 3 - 19+ 3-dose series) 08/20 COVID-19 Vaccine (2022- season) 2023 Care Teams Boat Operator Relationship Specialty Start Date End Date David Templeton MD PCP - General 05/11/14
--- OUTSIDE RECORDS SUMMARY | 2024-04-14 13:54 | XMS_ITS | Encounter Summary ---
Author [place] [address] Care Team Providers Care Helicopter Pilot Instructor Name Role Phone David Templeton MD Primary Care Provider [phone] Encounter Details Date Type Department Care Team (Latest Contact Info) Description 08/15/2013 9:00 AM EST Ancillary Appointment [place] [phone] Michelle De [place], [place] PAF (paroxysmal atrial fibrillation) Social History Tobacco Use Types Packs/Day Years Used Date Smoking Tobacco: Never Smokeless Tobacco: Never Alcohol Use Standard Drinks/Week Comments No 0 (1 standard drink = 0.6 oz pur e alcohol) Sex and Gender Information Value Date Recorded Sex Assigned at Not on file Gender Identity Not on file Sexual Orientation Not on file documented as of this encounter Plan of Treatment Not on file documented as of this encounter Procedures Procedure Name Priority Date/Time Associated Diagnosis Comments RENAL DUPLEX COMPLETE Routine 08/15/2013 8:58 AM EST PAF (paroxysmal atrial fibrillation) documented in this encounter Results * Duplex Study Renal Arteries, Bilat (08/15/2013 8:58 AM EST) VB Text Report Department: Vascular Surgery Lab Patient: [id number] (BISMARK MAR) CPT Code: 13112 ICD-9: 401.9 Referring Physician: SHASHI MAREI Indication: ??Hypertension ICD9 Diagnosis Code: 401.9 Findings: Naz Renal Aorta ? PSV (cm/s): 107 ? EDV (cm/s): 16 ? RI: 0.85 Renal Artery Proximal, Right ? PSV (cm/s): 66 ? EDV (cm/s): 24 ? RAR-WI: 0.6 ? RI: 0.63 Renal Artery Mid, Right ? PSV (cm/s): 81 ? EDV (cm/s): 33 ? RAR-WI: 0.8 ? RI: 0.59 Renal Artery Distal, Right ? PSV (cm/s): 89 ? EDV (cm/s): 41 ? RAR-WI: 0.8 ? RI: 0.53 Upper Pole Renal Parenchyma, Right ? PSV (cm/s): 37 ? EDV (cm/s): 17 ? RI: 0.54 Mid Pole Renal Parenchyma, Right ? PSV (cm/s): 43 ? EDV (cm/s): 22 ? RI: 0.49 Renal Hilum, Right ? AT (ms): 13 Kidney Length, Right ? Length (cm): 11.9 Renal, Right ? Patent: Patent Renal Artery Proximal, Left ? PSV (cm/s): 111 ? EDV (cm/s): 42 ? RAR-WI: 1.0 ? RI: 0.62 Renal Artery Mid, Left ? PSV (cm/s): 109 ? EDV (cm/s): 36 ? RAR-WI: 1.0 ? RI: 0.67 Renal Artery Distal, Left ? PSV (cm/s): 70 ? EDV (cm/s): 23 ? RAR-WI: 0.7 ? RI: 0.67 Upper Pole Renal Parenchyma, Left ? PSV (cm/s): 23 ? EDV (cm/s): 13 ? RI: 0.44 Mid Pole Renal Parenchyma, Left ? PSV (cm/s): 33 ? EDV (cm/s): 10 ? RI: 0.69 Renal Hilum, Left ? PSV (cm/s): 61 ? EDV (cm/s): 25 ? RI: 0.60 ? AT (ms): 47 Kidney Length, Left ? Length (cm): 12.9 Interpretation: Right: Patent main renal artery with no evidence of hemodynamically significant stenosis. Left: Patent main renal artery with no evidence of hemodynamically significant stenosis. Comparison: ??No previous study in our vascular lab database for comparison. Electronically Signed by: WENDI RAMIREZ M.D. on 2013-08-15 11:50:12 AM [facility] VB Text Report End of Report [facility] 08/15/2013 8:58 AM EST Shashi Marie MD VASCULAR ORDERABLES [facility] documented in this encounter Visit Diagnoses Diagnosis PAF (paroxysmal atrial fibrillation) Atrial fibrillation documented in this encounter Care Teams Helicopter Pilot Instructor Relationship Specialty Start Date End Date David Templeton MD [address] [place] [address] PCP - General 08/01/13 documented as of this encounter
--- OUTSIDE RECORDS SUMMARY | 2024-04-14 13:54 | XMS_ITS | Encounter Summary ---
[place] [address] Care Team Providers Care Sustainability Specialist Name Role Phone David Templeton MD Primary Care Provider [phone] Encounter Details Date Type Department Care Team (Late st Contact Info) Description 12/10/2014 12:45 PM EDT [place] [id number] Alexa Moyre APRN [facility] [place] [address] High risk medication use; Partial symptomatic epilepsy with complex partial seizures, not intractable, without status epilepticus Discharge Disposition: Home Social History Tobacco Use Types Packs/Day Years Used Date Smoking Tobacco: Never Smokeless Tobacco: Never Alcohol Use Standard Drinks/Week Comments Yes 0 (1 standard drink = 0.6 oz pur e alcohol) seldom Sex and Gender Information Value Date Recorded Sex Assigned at Not on file Gender Identity Not on file Sexual Orientation Not on file documented as of this encounter Last Filed Vital Signs Vital Sign Reading Time Taken Comments Blood Pressure 136/74 12/10/2014 12:53 PM EDT Pulse 73 12/10/2014 12:53 PM EDT Temperature - - Respiratory Rate - - Oxygen Saturation - - Inhaled Oxygen Concentration - - Weight 131.4 kg (289 lb 11 oz) 12/10/2014 12:53 PM EDT Height 182.9 cm (6') 12/10/2014 12:53 PM EDT Body Mass Index 39.29 12/10/2014 12:53 PM EDT documented in this encounter Progress Notes * Alexa Moyer, MECHANICAL MAINTENANCE ENGINEER - 12/10/2014 1:17 PM EDT Subjective: [facility] OUTPATIENT FOLLOW UP NOTE Patient Active Problem List Diagnosis ??? Obesity ??? Atrial fibrillation with rapid ventricular response New Paroxysmal AFib, rapid VR when in afib Normal LV function EF= 70% Thickened Septum, ? HOCM On diltiazem drip-->Diltiazem Intermittent afib/sinus History of hypothyroidism, on replacement, normal TSH Sinus rhythm - 12 lead EKG 08/15/2011 ??? Possible Hypertrophic cardiomyopathy History of HTN HCM, non obstructive, EF~ 65=75% Echo 2004 Septal hypertrophy with WEST Echo 2005 Septal hypertrophy with obstruction at rest or exertion, no ischemia Grandfather of heart condition mid 50s 2 children, healthy, no work up ??? Hypothyroidism ??? CIS - possible obstructive sleep apnea ??? seizure disorder Long standing Followed by Neurology MRI- IMPRESSION: Several small foci of T2 hyperintensity in the deep white matter of the brain several of which are periventricular in location. Differential includes prior injury, demyelination, as well as possibly ischemic injury. Correlate with clinical symptoms. No evidence of mesiotemporal sclerosis.When compared with the previous study, there is no appreciable change. I saw Cole Mar today for a scheduled follow-up evaluation. Patient came to the office with his girlfriend Interval history (seizure type and frequency): The patient has had no seizures since last clinic visit which was over one year ago. He is tolerating his medication well. He has been cleared by his corncob pipes assembler to discontinue follow up. He has rare heart palpitations and his blood pressure has been under good control. He has gained almost 30 pounds however. His mood has improved. He has a new girlfriend and seems happy. He continues to live athis father's house with his son. 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 Social History: History Social History ??? Marital Status: Spouse Name: N/A Number of Children: N/A ??? Years of Education: N/A Occupational History ??? Not on file. Social History Main Topics ??? Smoking status: Never Smoker ??? Smokeless tobacco: Never Used ??? Alcohol Use: Yes Comment: seldom ??? Drug Use: No ??? Sexual Activity: Not on file Comment: deferred Other Topics Concern ??? Not on file Social History Narrative Seizure Control: QEpilepsy 12/09/2014 Last seizure was: More than 1 year ago Number of seizures in past month: - Were seizures disabling? 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 double vision Never 2. headache Rarely 3. rash Rarely 4. unsteadiness Rarely 5. upset stomach, nausea, vomiting Rarely 6. troubles with gums or teeth Sometimes 7. weight loss or gain Sometimes 8. tremors or shaking Never 9. restlessness Rarely 10. dizziness Never 11. tiredness/sleepiness Sometimes 12. trouble sleeping Sometimes 13. difficulties concentrating Rarely 14. feelings of aggression Never 15. depression Sometimes 16. thoughts about ending your life Never 17. palpitations or chest pains Often 18. bladder problems Sometimes 19. breathing problems Never Memory and concentration symptoms (QOLIE-31) QEPILEPSY QOLIE31 12/09/2014 Memory problems A little of the time Difficulty reasoning and solving problems A little of the time Trouble remembering things people tell A little of the time Trouble concentrating on reading A little of the time Trouble concentrating on doing one thing at a time A little of the time How much do your memory difficulties bother you? 2 QOLIE-31 8 (low scores suggest severe memory symptoms) Depression Score (NDDI-E) QEPILEPSY DEPRESSION SCORE 12/09/2014 Depression Score 7 (scores >15 suggest Major Depression) Quality of Life QEPILEPSY QOL 12/10/2014 Quality of Life (10-Best Quality of Life; 0-Worst Quality of Life) 7 Past Medical History Diagnosis Date ??? Hypertension ??? Hypothyroidism ??? Erectile dysfunction ??? Seizure ??? Atrial fibrillation Current Outpatient Prescriptions on File Prior to Visit Medication Sig Dispense Refill ? ? phenytoin (DILANTIN) 100 mg ER capsule Take 1 cap in am & 2 cap in pm on daily basis 90 tablet 5 ??? ranitidine (ZANTAC) 150 mg tablet Take 150 mg by mouth 2 times daily. ??? lamoTRIgine (LAMICTAL) 100 mg tablet Take 100 mg by mouth daily. 300mg/am 400mg/pm ??? Cholecalciferol, Vitamin D3, 5,000 unit Cap Take 10,000 Units by mouth daily. ??? sildenafil (VIAGRA) 100 mg tablet Take 100 mg by mouth as needed. ??? DILTiazem (CARDIZEM CD) 180 mg 24 hr capsule Take 1 capsule by mouth 2 times daily. 180 capsule3 ??? metoprolol succinate (TOPROL-XL) 100 mg XL tablet Take 1 tablet by mouth daily. 90 tablet 3 ??? hydrochlorothiazide (HYDRODIURIL) 12.5 mg tablet Take 12.5 mg by mouth daily. ??? levothyroxine (SYNTHROID) 200 mcg tablet Take 250 mcg by mouth daily. ??? aspirin (ENTERIC COATED ASPIRIN) 325 mg EC tablet Take 1 tablet by mouth daily. 30 tablet 3 ??? lisinopril (PRINIVIL;ZESTRIL) 5 mg tablet Take 5 mg by mouth daily. ??? [DISCONTINUED] LORazepam (ATIVAN) 1 mg tablet Take 1 mg by mouth 2 times daily. No current facility-administered medications on file prior to visit. No Known Allergies Objective: Blood pressure 136/74, pulse 73, height 182.9 cm (6'), weight 131.4 kg (289 lb 11 oz). Awake, alert, EOMI, No obvious tremor, gait stable, no obvious rash, mood is good. Assessment and Plan: - Epilepsy: Having rare seizures and actually has been seizure free for the past 15 months. Will continue present medications. - Screen for medication toxicity: I am checking CBC, LFTs, lamictal and dilantin levels - The patient is currently not a candidate for epilepsy surgery as seizures are well controlled. - Bone health: currently taking Ca and VIt D - Social and psychiatric issues: Depression has improved and he actually stopped taking his antidepressant. He is in a new relationship and seems happy - Patient counselled about sleep apnea. He is using his CPAP which has helped. - Prescriptions were renewed. - Patient will be seen again by the epilepsy team in 1 year. documented in this encounter Plan of Treatment Not on file documented as of this encounter Procedures Procedure Name Priority Date/Time Associated Diagnosis Comments LAMOTRIGINE LVL Routine 12/10/2014 1:47 PM EDT Partial symptomatic epilepsy with complex partial seizures, not intractable, without status epilepticus HEMOGRAM Routine 12/10/2014 1:47 PM EDT High risk medication use PHENYTOIN LEVEL, TOTAL AND FREE Routine 12/10/2014 1:47 PM EDT Partial symptomatic epilepsy with complex partial seizures, not intractable, without status epilepticus HEPATIC FUNCTION PANEL Routine 12/10/2014 1:47 PM EDT High risk medication use documented in this encounter Results * (ABNORMAL) Hepatic Function Panel (12/10/2014 1:47 PM EDT) Total Protein 7.6 6.1 - 8.0 gm/dL [facility] MILLENNI[facility] Albumin 4.5 3.2 - 5.2 gm/dL [facility] MILLENNIUM AST 22 0 - 39 unit/L [facility] MILLENNIUM ALT 34 0 - 55 unit/L [facility] MILLENNIUM Alk Phos 152(H) 40 - 120 unit/L [facility] MILLENNIUM Total Bilirubin 0.2 0.2 - 1.3 mg/dL [facility] MILLENNIUM Bili, Direct 0.1 0.0 - 0.3 mg/dL [facility] MILLENNIUM Blood specimen (specimen) 12/10/2014 1:47 PM EDT 12/10/2014 1:59 PM EDT Narrative Resulting Agency Comment Spec In Lab Richar Prabhakar MD CHEMISTRY ORDERABLES [facility] * (ABNORMAL) Hemogram (12/10/2014 1:47 PM EDT) WBC 6.4 4.0 - 10.0 x10(3)/mcL [facility]ERN[facility] MILLENNIUM RBC 4.81 4.63 - 6.08 x10(6)/mcL [facility] MILLENNI[facility] Hemoglobin 15.9 13.7 - 17.5 gm/dL [facility] MILLENNIUM Hematocrit 44.8 40.0 - 51.0 % CERNER MILLENNIUM MCV 93.1(H) 79.0 - 92.0 fL CERNER MILLENNIUM MCH 33.1(H) 25.6 - 32.2 pg CERNER MILLENNIUM MCHC 35.5 32.0 - 36.5 gm/dL CERNER MILLENNIUM Platelets 262 145 - 370 x10(3)/mcL CERNER MILLENNIUM RDWSD 44.6 35.0 - 46.0 fL CERNER MILLENNIUM RDWCV 13.1 10.9 - 14.4 % CERNER MILLENNIUM MPV 9.4 9.0 - 12.0 fL [facility] MILLENNIUM Blood specimen (specimen) 12/10/2014 1:47 PM EDT 12/10/2014 1:59 PM EDT Narrative Resulting Agency Comment Spec In Lab Richar Prabhakar MD HEMATOLOGY ORDERABLE S [facility] * (ABNORMAL) Phenytoin level, total and free (12/10/2014 1:47 PM EDT) Phenytoin Lvl 20.2(H) 10.0 - 20.0 mg/L [facility] MILLENNIUM Comment: Theraputic range: ??10-20 mg/L Toxic: ??> 25 mg/L Patients with renal dysfunction (e.g.creatinine clearance < 30 mls/min) may show falsely elevated results due to accumulation of metabolites in renal failure Phenytoin, Free 1.30 1.00 - 2.00 mg/L [facility]ERN[facility] MILLENNIUM Comment: Therapeutic range: ? Free phenytoin: ??1.00-2.00 mg/L ? % Free phenytoin: ??8-12% Toxic range: ? Free phenytoin: ??>3.00 mg/L This test was developed and its performance characteristics determined by [facility]. It has not been cleared or approved by the FDA. The laboratory is regulated under CLIA as qualified to perform high-complexity testing. This test is used for clinical purposes. It should not be regarded as investigational or for research. Phenytoin Free% 6(L) 8 - 12 % [facility]ERN ER MILLENNIUM Comment: This test was developed and its performance characteristics determined by [facility]. It has not been cleared or approved by the FDA. The laboratory is regulated under CLIA as qualified to perform high-complexity testing. This test is used for clinical purposes. It should not be regarded as investigational or for research. Blood specimen (specimen) 12/10/2014 1:47 PM EDT 12/10/2014 1:59 PM EDT Narrative Resulting Agency Comment Spec In Lab Richar Prabhakar MD CHEMISTRY ORDERABLES [facility]ERNER QUETAENNIUM * Lamotrigine Lvl (12/10/2014 1:47 PM EDT) Lamotrigine Lvl 2.4 2.5 - 15.0 mcg/mL [facility]ERNER MILLENNIUM Comment: Test Performed by: [facility], [place] [address] Mechanical Process Engineer: Minoo Nevarez, Ph.D. Blood specimen (specimen) 12/10/2014 1:47 PM EDT 12/10/2014 3:04 PM EDT Narrative Resulting Agency Comment Spec In Lab Richar Prabhakar MD CHEMISTRY ORDERABLES THERON LOVEIUM documented in this encounter Visit Diagnoses Diagnosis High risk medication use Encounter for long-term (current) use of other medications Partial symptomatic epilepsy with complex partial seizures, not intractable, without status epilepticus documented in this encounter Care Teams Sustainability Specialist Relationship Specialty Start Date End Date David Templeton MD [address] [place] [address] PCP - General 08/01/13 documented as of this encounter
--- OUTSIDE RECORDS SUMMARY | 2024-04-14 13:54 | XMS_ITS | Encounter Summary ---
[place] [address] Care Team Providers Care Manager Pacu Name Role Phone David Templeton MD Primary Care Provider [phone] Reason for Visit * Reason Onset Date Comments Medication Refill 08/11/2013 Encounter Details Date Type Department Care Team (Late st Contact Info) Description 08/11/2013 [place] [id number] Alexa Moyer APRN [facility] [place] [address] Epilepsy (Primary Dx) Social History Tobacco Use Types Packs/Day Years [...] documented as of this encounter Visit Diagnoses Diagnosis Epilepsy- Primary Unspecified epilepsy without mention of intractable epilepsy documented in this encounter Care Teams Manager Pacu Relationship Specialty Start Date End Date David Templeton MD [address] [place] [address] PCP - General 08/01/13 documented as of this encounter
--- OUTSIDE RECORDS SUMMARY | 2024-04-14 13:54 | XMS_ITS | Encounter Summary ---
[place] [address] Care Team Providers Care Oil Transport Driver Name Role Phone Debbie Dukes MD Primary Care Provider [phone] Reason for Visit * Reason Onset Date Comments Medication Refill 02/05/2013 Encounter Details Date Type Department Care Team (Late st Contact Info) Description 02/05/2013 [place] [address] Alexa Moyer APRN [facility] [address] [place] [address] Epilepsy (Primary Dx) Social History Tobacco Use [...] epilepsy documented in this encounter Care Teams Oil Transport Driver Relationship Specialty Start Date End Date Debbie Dukes MD [address] [place] [address] PCP - General 09/20/11 07/31/13 documented as of this encounter
--- OUTSIDE RECORDS SUMMARY | 2024-04-14 13:54 | XMS_ITS | Encounter Summary ---
[place] [address] Care Team Providers Care Legal Instruments Examiner Name Role Phone Debbie Dukes MD Primary Care Provider [phone] Reason for Visit * Reason Onset Date Comments Medication Refill 10/13/2012 Encounter Details Date Type Department Care Team (Late st Contact Info) Description 10/13/2012 [place] [phone] Debi Diop APRN [facility] [place] [address] Epilepsy (Primary Dx) Social History Tobacco Use Types Packs/Day Years Used Date Smoking Tobacco: Never Smokeless Tobacco: Never Alcohol Use Standard Drinks/Week Comments No 0 (1 standard drink = 0.6 oz pur e alcohol) Sex and Gender Information Value Date Recorded Sex Assigned at Not on file Gender Identity Not on file Sexual Orientation Not on file documented as of this encounter Miscellaneous Notes * Telephone Encounter - Aishwarya Arias LPN - 10/15/2012 4:12 PM EST Last appointment: 09/11/12 Next scheduled appointment: 03/12/13 Medication Name: Lamictal 100 mg tabs Dose: 2 tabs BID Date of Last Rx: 04/11/12 Amnt:120 # of Refills: 0 Left message for patient to call this office RE: patient comment below. * Telephone Encounter - Aishwarya Arias LPN - 10/14/2012 3:21 PM ESTFrom: Cole Mar To: Debi Diop APRN Sent: 10/13/2012 4:28 PM EST Subject: Medication Renewal Request Original authorizing provider: ZAY AMOR would like a refill of the following medications: lamoTRIgine (LAMICTAL) 100 mg tablet [DEBI DIOP APRN] Preferred pharmacy: [id number] Comment: I have 6 days left. I think I am to go on to 1 200 mg tablets twice a day. 1 morning 1 night. documented in this encounter Plan of Treatment Not on file documented as of this encounter Visit Diagnoses Diagnosis Epilepsy- Primary Unspecified epilepsy without mention of intractable epilepsy documented in this encounter Care Teams Legal Instruments Examiner Relationship Specialty Start Date End Date Debbie Dukes MD [address] [place] [address] PCP - General 09/20/11 07/31/13 documented as of this encounter
--- OUTSIDE RECORDS SUMMARY | 2024-04-14 13:54 | XMS_ITS | Encounter Summary ---
[place] [address] Care Team Providers Care Coagulating Operator Name Role Phone David Templeton MD Primary Care Provider Reason for Visit * Reason Onset Date Comments Other 07/30/2013 Encounter Details Date Type Department Care Team (Late st Contact Info) Description 07/30/2013 [place] [phone] Alexa Moyer APRN [facility] [place] [address] Other Social History Tobacco Use Types Packs/Day Years [...] encounter Miscellaneous Notes * Telephone Encounter - Kiara Lance LPN - 07/30/2013 11:47 AM EST Follow up call: I spoke to the pt to inform him that our providers prefer to have lab work ordered here after examining the pt at their annual appointment so in case they decide they want a particular lab ordered, the pt is having labs done twice . Pt understood and was agreeable with this plan. * Telephone Encounter - Desi Linda - 07/30/2013 11:13 AM EST Patient is scheduled for a follow up with Alexa Moyer on 10/22 and would like to have any labs needed done at [facility]) prior to his appointment. Please call patient to advise whenhe can go have the labs done. documented in this encounter Plan of Treatment Not on file documented as of this encounter Visit Diagnoses Not on filedocumented in this encounter Care Teams Coagulating Operator Relationship Specialty Start Date End Date David Templeton MD [address] [place] [address] PCP - General 08/01/13 documented as of this encounter
--- OUTSIDE RECORDS SUMMARY | 2024-04-14 13:54 | XMS_ITS | Encounter Summary ---
Author [place] [address] Care Team Providers Care Tank Car Mechanic Name Role Phone David Templeton MD Primary Care Provider [phone] Reason for Visit * Reason Onset Date Comments Medication Refill 08/11/2013 Encounter Details Date Type Department Care Team (Late st Contact Info) Description 08/11/2013 [place] [phone] Alexa Moyer APRN [facility] [address] Social History Tobacco Use Types Packs/Day Years [...] on filedocumented in this encounter Care Teams Tank Car Mechanic Relationship Specialty Start Date End Date David Templeton MD [address] [place] [address] PCP - General 08/01/13 documented as of this encounter
--- OUTSIDE RECORDS SUMMARY | 2024-04-14 13:54 | XMS_ITS | Encounter Summary ---
Author Organization [facility] [place] [address] Care Team Providers Care Marine Equipment Engineer Name Role Phone Debbie Dukes MD Primary Care Provider [phone] Encounter Details Date Type Department Care Team (Latest Contact Info) Description 03/14/2012 9:54 AM EDT - 03/14/2012 11:59 PM EDT Hospital Encounter [place] [address] CARDIO, ECHO SIXTY MIN APPT None Robby Allen MD [facility] [place] [address] AF (atrial fibrillation) Discharge Disposition: Home Social History Tobacco Use Types Packs/Day Years Used Date Smoking Tobacco: Never Smokeless Tobacco: Never Alcohol Use Standard Drinks/Week Comments Yes 0 (1 standard drink = 0.6 oz pur e alcohol) occasional glass of wine Sex and Gender Information Value Date Recorded Sex Assigned at Not on file Gender Identity Not on file Sexual Orientation Not on file documented as of this encounter Medications at Time of Discharge Medication Sig Dispensed Refills Start Date End Date metoprolol succinate (TOPROL-XL) 100 mg XL tabletIndications:Atr ial fibrillation Take 1 tablet by mouth daily. 90 tablet 3 01/15/2012 hydrochlorothiazide (HYDRODIURIL) 12.5 mg tablet Take 12.5 mg by mouth daily. levothyroxine (SYNTHROID) 200 mcg tabletIndications:adj unct to surgery or radiotherapy for thyroid carcinoma Take 200 mcg by mouth daily. Takes with 50mcg Indications: ADJUNCT TO SURGERY OR RADIOTHERAPY FOR THYROID CARCINOMA aspirin (ENTERIC COATED ASPIRIN) 325 mg EC tablet Take 1 tablet by mouth daily. 30 tablet 3 08/05/2011 lisinopril (PRINIVIL;ZESTRIL) 5 mg tablet Take 5 mg by mouth daily. DILTiazem (CARDIZEM CD) 180 mg 24 hr capsuleIndications:At rial fibrillation Take 1 capsule by mouth 2 times daily. 180 capsule 3 01/15/2012 03/20/2012 phenytoin (DILANTIN) 100 mg ER capsuleIndications:Ep ilepsy Take 2 capsules by mouth. Take 1 in AM and 2 in PM 90 tablet 5 01/12/2012 07/29/2012 lamoTRIgine (LAMICTAL) 100 mg tabletIndications:epi lepsy Take 1 tablet by mouth. Take 2 in AM and 1 in PM Indications: Epilepsy 90 tablet 5 11/16/2011 04/11/2012 documented as of this encounter Plan of Treatment Not on file documented as of this encounter Procedures Procedure Name Priority Date/Time Associated Diagnosis Comments ECHOCARDIOGRAM TRANSTHORACIC Routine 03/14/2012 10:45 AM EDT AF (atrial fibrillation) documented in this encounter Results * Echo Transthoracic (Complete) (03/14/2012 10:45 AM EDT) Pathologist [facility] EF 70 HEARTLAB SYSTEM Anatomical Region Laterality Modality Other 03/14/2012 Narrative 03/14/2012 4:05 PM EDT Procedure: ? Transthoracic Echocardiogram Patient: ? DROWN BISMARK L ?(Age): 1975(36) Med Rec#: ?[id number] ? Sex: ?M ? Site Loc: ?[facility] [place] ? Ht / Wt: ??183(cm)/114(kg) Pt. Loc: ? Echo Lab ? BSA: ?2.41 Study Date: ?03/14/2012 ? Pt. Type: Outpatient Tape: ? Referring: Robby Allen MD Walking Dragline Oiler: Katie Purcell Interpreting Fellow: Teressa Alexander ([id number]) Diagnosis:CPT Code(s): ??Color Doppler (69902), ??Echo Full (13796), Spectral Doppler (74523), Indication(s): ??Atrial fibrillation Rhythm: Sinus HR ?BP ?133/88 ?? SUMMARY: 1. The left ventricular chamber size is normal. There is mild septal hypertrophy of the left ventricle. ??The interventricular septum is 2.0 cm by echo. There is no evidence of LVOT obstruction by careful Doppler with Valsalva maneuver. There is normal global left ventricular systolic function. ??Ejection fraction is estimated to be 70%. There are no left ventricular segmental wall motion abnormalities. 2. Right ventricular chamber size, wall thickness, and systolic function are within normal limits. 3. The left atrium is mildly dilated. The right atrium is normal in size. 4. There is no hemodynamically significant valve disease. 5. Compared to prior TTE dated 08/02/2011, there has been no significant change. FINDINGS: Study Quality ?Technically limited Left Ventricle ?The left ventricular chamber size is normal. ?There is mild septal hypertrophy of the left ventricle. ??The interventricular septum is 2.0 cm by echo. ?There is no evidence of LVOT obstruction. ?There is normal global left ventricular systolic function. ??Ejection fraction is estimated to be 70%. ?There are no left ventricular segmental wall motion abnormalities. ?Doppler assessment is consistent with normal left sided filling pressure. Left Atrium ?The left atrium is mildly dilated. Right Ventricle ?Right ventricular chamber size, wall thickness, and systolic function are within normal limits. ?Pulmonary artery hypertension could not be assessed due to inadequate tricuspid regurgitation jet. ?The estimated right atrial pressure is 3 mmHg. Right Atrium ?The right atrium is normal in size. Aortic Valve ?The aortic valve is tricuspid. ?There is no evidence of aortic valve thickening. ?There is no evidence of aortic valve stenosis. ?There is a trace of aortic regurgitation present. Mitral Valve ?The mitral valve appears normal in structure and function. ?There is trace mitral regurgitation present. ?Systolic anterior motion of the mitral valve chordae is present. Tricuspid Valve ?The tricuspid valve appears normal in structure and function. ?There is trace tricuspid regurgitation present. Pulmonic Valve ?The pulmonic valve appears normal in structure and function. ?There is trace pulmonic regurgitation present. Pericardium ?The pericardium appears normal and there is no evidence of a pericardial effusion. Aorta ?The aortic root dimension is 3.5 cm at the level of the sinuses. ?The ascending aorta is normal in size. Pulmonary Artery ?The main pulmonary artery appears normal. Venous ?The inferior vena cava appears normal in size. ?There is a greater than 50% respiratory change in the inferior vena cava dimension. Misc ?There is no hemodynamically significant valve disease. ?See remainder of report for additional findings. ?I personally reviewed the images and edited the resident's/fellow's interpretation. ?Two-dimensional echo, spectral Doppler and color Doppler performed. Wall Motion: Segment Name ?Rest ? Base-Anteroseptal ?? Normal ? Base-Anterior ? Normal ? Base-Anterolateral ??Normal ? Base-Posterolateral Normal ? Base-Inferior ? Normal ? Base-Inferoseptal ?? Normal ? Mid-Anteroseptal ?Normal ? Mid-Anterior ?Normal ? Mid-Anterolateral ?? Normal ? Mid-Posterolateral ??Normal ? Mid-Inferior ?Normal ? Mid-Inferoseptal ?Normal ? [place]-Septal ? Normal ? [place]-Anterior ? Normal ? [place]-Lateral ?Normal ? [place]-Inferior ? Normal ? [place]-Tip ?Normal ? Chambers ?Value ?Units (Range) ? IVSd 2D ? 2 ?cm ? LVIDd 2D ?4.1 ?cm ? PWd 2D ?1.3 ?cm ? LVIDs 2D ?2.3 ?cm ? LVFS 2D ? 44 ? % ? LA area ? 24 ? cm2 (<21) ? RA area ? 16 ? cm2 (<18) ? Ao root ? 3.5 ?cm (2.1 to 3.6) ? Asc Ao ?3.3 ?cm (2 to 3.5) ? Mitral Valve ?Value ?Units (Range) ? E peak ?0.74 ? m/sec ? E/A ratio ? 1.3 ?ratio ? MVDT ?203 ?msec ? E1 ?0.11 ? m/sec ? E/E1 ?6.7 ?ratio ? Tricuspid/Pulmonic Valves ?Value ?Units (Range) ? RAP ? 3 ?mmHg ? This report has been electronically signed by: Shashi Doherty M.D. ? 03/14/2012 16:04:05 Images reviewed and interpretation verified [facility] Resulting Agency Comment [id number] Procedure Note Shashi Doherty MD - 03/14/2012 Procedure: Transthoracic Echocardiogram Patient: YESY Meng (Age): 1975(36) Med Rec#: [id number] Sex: M Site Loc: [facility] [place] Ht / Wt: 183(cm)/114(kg) Pt. Loc: Echo Lab BSA: 2.41 Study Date: 03/14/2012 Pt. Type: Outpatient Tape: Referring: Robby Allen MD Walking Dragline Oiler: Katie Purcell Interpreting Fellow: Teressa Alexander ([id number]) Diagnosis:CPT Code(s): Color Doppler (83136), Echo Full (37045), Spectral Doppler (17605), Indication(s): Atrial fibrillation Rhythm: Sinus HR BP 133/88 SUMMARY: 1. The left ventricular chamber size is normal. There is mild septal hypertrophy of the left ventricle. The interventricular septum is 2.0 cm by echo. There is no evidence of LVOT obstruction by careful Doppler with Valsalva maneuver. There is normal global left ventricular systolic function. Ejection fraction is estimated to be 70%. There are no left ventricular segmental wall motion abnormalities. 2. Right ventricular chamber size, wall thickness, and systolic function are within normal limits. 3. The left atrium is mildly dilated. The right atrium is normal in size. 4. There is no hemodynamically significant valve disease. 5. Compared to prior TTE dated 08/02/2011, there has been no significant change. FINDINGS: Study Quality Technically limited Left Ventricle The left ventricular chamber size is normal. There is mild septal hypertrophy of the left ventricle. The interventricular septum is 2.0 cm by echo. There is no evidence of LVOT obstruction. There is normal global left ventricular systolic function. Ejection fraction is estimated to be 70%. There are no left ventricular segmental wall motion abnormalities. Doppler assessment is consistent with normal left sided filling pressure. Left Atrium The left atrium is mildly dilated. Right Ventricle Right ventricular chamber size, wall thickness, and systolic function are within normal limits. Pulmonary artery hypertension could not be assessed due to inadequate tricuspid regurgitation jet. The estimated right atrial pressure is 3 mmHg. Right Atrium The right atrium is normal in size. Aortic Valve The aortic valve is tricuspid. There is no evidence of aortic valve thickening. There is no evidence of aortic valve stenosis. There is a trace of aortic regurgitation present. Mitral Valve The mitral valve appears normal in structure and function. There is trace mitral regurgitation present. Systolic anterior motion of the mitral valve chordae is present. Tricuspid Valve The tricuspid valve appears normal in structure and function. There is trace tricuspid regurgitation present. Pulmonic Valve The pulmonic valve appears normal in structure and function. There is trace pulmonic regurgitation present. Pericardium The pericardium appears normal and there is no evidence of a pericardial effusion. Aorta The aortic root dimension is 3.5 cm at the level of the sinuses. The ascending aorta is normal in size. Pulmonary Artery The main pulmonary artery appears normal. Venous The inferior vena cava appears normal in size. There is a greater than 50% respiratory change in the inferior vena cava dimension. Misc There is no hemodynamically significant valve disease. See remainder of report for additional findings. I personally reviewed the images and edited the resident's/fellow's interpretation. Two-dimensional echo, spectral Doppler and color Doppler performed. Wall Motion: Segment Name Rest Base-Anteroseptal Normal Base-Anterior Normal Base-Anterolateral Normal Base-Posterolateral Normal Base-Inferior Normal Base-Inferoseptal Normal Mid-Anteroseptal Normal Mid-Anterior Normal Mid-Anterolateral Normal Mid-Posterolateral Normal Mid-Inferior Normal Mid-Inferoseptal Normal [place]-Septal Normal [place]-Anterior Normal [place]-Lateral Normal [place]-Inferior Normal [place]-Tip Normal Chambers Value Units (Range) IVSd 2D 2 cm LVIDd 2D 4.1 cm PWd 2D 1.3 cm LVIDs 2D 2.3 cm LVFS 2D 44 % LA area 24 cm2 (<21) RA area 16 cm2 (<18) Ao root 3.5 cm (2.1 to 3.6) Asc Ao 3.3 cm (2 to 3.5) Mitral Valve Value Units (Range) E peak 0.74 m/sec E/A ratio 1.3 ratio MVDT 203 msec E1 0.11 m/sec E/E1 6.7 ratio Tricuspid/Pulmonic Valves Value Units (Range) RAP 3 mmHg This report has been electronically signed by: Shun Doherty M.D. 03/14/2012 16:04:05 Images reviewed and interpretation verified [facility] Robby Allen MD ECHO ORDERABLES documented in this encounter Visit Diagnoses Diagnosis AF (atrial fibrillation) Atrial fibrillation documented in this encounter Care Teams Marine Equipment Engineer Relationship Specialty Start Date End Date Debbie Dukes MD [address] [place] [address] PCP - General 09/20/11 07/31/13 documented as of this encounter
--- OUTSIDE RECORDS SUMMARY | 2024-04-14 13:54 | XMS_ITS | Encounter Summary ---
Author Organization [facility] [place] [address] Care Team Providers Care Food Cashier Name Role Phone Angelia Crespo MD Primary Care Provider [phone] Encounter Details Date Type Department Care Team (Late st Contact Info) Description 03/18/2014 2:10 PM EDT Follow-Up Cardiology at [address] [id number] Kerwin Frost MD [facility] [place] [address] Hypertensive heart disease without CHF (Primary Dx) Discharge Disposition: Home Social History Tobacco Use [...] Sign Reading Time Taken Comments Blood Pressure 100/70 03/18/2014 1:54 PM EDT Pulse 62 03/18/2014 1:54 PM EDT Temperature - - Respiratory Rate - - Oxygen Saturation 97% 03/18/2014 1:54 PM EDT Inhaled Oxygen Concentration - - Weight 117.9 kg (260 lb) 03/18/2014 1:54 PM EDT Height 182.9 cm (6') 03/18/2014 1:54 PM EDT Body Mass Index 35.26 03/18/2014 1:54 PM EDT documented in this encounter Progress Notes * Shashi Bennett MD - 03/18/2014 9:39 PM EDT I was the attending physician supervising the resident in the above care. For the purposes of billing, the resident provided the care. * Moose Frostannetta Ferrell - 03/18/2014 2:10 PM EDT Cardiology Consultation Referring Physician: ANGELIA CRESPO MD Reason for Visit: Paroxysmal A-fib Problems/PMH: Paroxysmal A-fib - Diagnosis: 2004 - [id number] Score: 1 LVH with Asymmetric Septal Hypertrophy -Exercise echo: 07/2013: 1. REST: The LV size And fxn are normal.LVEF 65%, Asymmetric septal wall hypertrophy is observed without evidence of LVOT obstruction. Right ventricular chamber size, wall thickness, and systolic function are within normal limits. 2. STRESS: On a Shashi protocol the patient e xercised for 10 minutes , achieving 11 METS of exertion, a peak heart rate of 139 bpm (76% maximum predicted), and peak blood pressure of 152/82 mmHg, stopping secondary to fatigue and shortness of breath. With stress he was asymptomatic, hemodynamically stable, had rare PVCs, and developed no signi ficant ST-TW changes. With stress all left ventricular segments became appropriately hyperdynamic. 3. IMPRESSION: There was no evidence of ischemia at this nondiagnostic level of stress. - Echo: 02/2012:concentric LVH,IVS 2.0 cm, no LVOT gradient, LVEF 70%, no hemodynamically significant valve disease. - CMR: 11/2011:concentric LVH 1.3 to 1.5 cm with focal anteroseptum base thickness with scar, LAE, LVEF 74%. - DNA Screen: 01/02/2014 HCM-Panel: negative HTN Hypothyroidism Seizure Disorder GENARO HPI: Mr. Mar is here for his scheduled visit. He is doing well. No syncope/lightheadedness/palpitations. Taking hs medications. BP at home is well controlled. His 2 sons were seen by peds cardiology andas per patient had normal ECG. He also had genetic testing which was negative as described above. Review of Systems: General: No recent weight changes, no change in sleep/ appetite, no fevers/chills ENT: no tinnitus,vertigo,dizziness CVS: as in HPI PULM: no cough,wheeze GI: no N,V,D,hematochezia,melena SCALPING MACHINE OPERATOR: no syncope,focal weakness,paresthesias Current Outpatient Prescriptions on File Prior to Visit Medication Sig Dispense Refill ? ? phenytoin (DILANTIN) 100 mg ER capsule Take 1 cap in am & 2 cap in pm on daily basis 90 tablet 5 ??? LORazepam (ATIVAN) 1 mg tablet Take 1 mg by mouth 2 times daily. ??? FLUoxetine (PROZAC) 20 mg capsule Take 20 mg by mouth daily. ??? ranitidine (ZANTAC) 150 mg tablet Take [...] ??? levothyroxine (SYNTHROID) 200 mcg tablet Take 200 mcg by mouth daily. ??? aspirin (ENTERIC COATED ASPIRIN) 325 mg EC tablet Take 1 tablet by mouth daily. 30 tablet 3 ??? lisinopril (PRINIVIL;ZESTRIL) 5 mg tablet Take 5 mg by mouth daily. Social History: reports that he has never smoked. He has never used smokeless tobacco. He reports that he does not drink alcohol or use illicit drugs. Family History: family history includes Cerebrovasular Accident in his mother and Diabetes in his mother. On exam: Filed Vitals: 03/18/14 1354 BP: 100/70 Pulse: 62 Height: 182.9 cm (6') Weight: 117.935 kg (260 lb) SpO2: 97% General: Comfortable, NAD Neck: JVP 5 cm. CV: Regular rhythm, S1,S2, no gallop, no rub. Lungs: Clear bilaterally, no wheeze. Extremities: warm, no pedal edema SCALPING MACHINE OPERATOR: AOX3, grossly non-focal Assessment & Plan: In summary, he is doing well. He is taking his antihypertensive meds regularly now. The most likelycause of his LVH is hypertensive cardiomyopathy and the likelihood of HCM are low. He also does nothave any high risk clinical features. At this time no further testing is indicated other than careful senior care follow up, which he elects to do with his ANGELIA CRESPO MD. He will call us if he as any new symptoms. Otherwise cardiology follow on as needed basis. documented in this encounter Plan of Treatment Not on file documented as of this encounter Visit Diagnoses Diagnosis Hypertensive heart disease without CHF- Primary Unspecified hypertensive heart disease without heart failure documented in this encounter Care Teams Food Cashier Relationship Specialty Start Date End Date Angelia Crespo MD [address] [place] [address] PCP - General 08/01/13 documented as of this encounter
--- OUTSIDE RECORDS SUMMARY | 2024-04-14 13:54 | XMS_ITS | Encounter Summary ---
[place] [address] Care Team Providers Care Healthcare Social Worker Name Role Phone David Templeton MD Primary Care Provider [phone] Encounter Details Date Type Department Care Team (Latest Contact Info) Description 08/15/2013 9:45 AM EST - 08/15/2013 11:59 PM EST Hospital Encounter Non-[place] [phone] PAF (paroxysmal atrial fibrillation) Social History Tobacco [...] Sig Dispensed Refills Start Date End Date lamoTRIgine (LAMICTAL) 100 mg tablet Take by mouth 2 times daily. 300mg/am 400mg/pm DILTiazem (CARDIZEM CD) 180 mg 24 hr capsuleIndications:At rial fibrillation Take 1 capsule by mouth 2 times daily. 180 capsule 3 03/20/2012 metoprolol succinate (TOPROL-XL) 100 mg XL tabletIndications:Atr [...] tablet Take 5 mg by mouth daily. phenytoin (DILANTIN) 100 mg ER capsuleIndications:Ep ilepsy Take 1 cap in am & 2 cap in pm on daily basis 90 tablet 5 08/11/2013 02/09/2014 sildenafil (VIAGRA) 100 mg tablet Take 100 mg by mouth as needed. 02/16/2015 documented as of this encounter Plan of Treatment Not on file documented as of this encounter Procedures Procedure Name Priority Date/Time Associated Diagnosis Comments ECHOCARDIOGRAM STRESS TEST (TREADMILL) Routine 08/15/2013 12:24 PM EST PAF (paroxysmal atrial fibrillation) documented in this encounter Results * Echocardiogram Stress (Treadmill) (08/15/2013 12:24 PM EST) EF 65 HEARTLAB SYSTEM Anatomical Region Laterality Modality Other 08/15/2013 Narrative 08/15/2013 1:19 PM EST Procedure: ? Stress Echocardiogram Patient: ? DROWN BISMARK L ?(Age): 1975(37) Med Rec#: ?[id number] ? Sex: ?M ? [place] Loc[place] [place] ? Ht / Wt: ??183(cm)/114(kg) Pt. Loc: ? Echo Lab ? BSA: ?2.35 Study Date: ?08/15/2013 ? Pt. Type: Outpatient Tape: ? Referring: Shashi Bennett Hospital Security Officer: Mavis Carrington Hospital Security Officer: David Cui Hospital Security Officer: MARYURI Sap Pi Developer: Melvin Morgan Diagnosis:CPT Code(s): ??ECG Interpretation (20813), ??Stress Echo (16908), ??Color Doppler (16361), ??Optison (17600XS), ??Doppler LTD (26816), Indication(s):Medication(s): ?? Rhythm: Sinus Stage ?HR ?BP Rest ? 65 ?122/76 ?? Peak ? 139 ? 152/82 ?? Recovery ? 69 ?120/78 ?? SUMMARY: 1. REST: The left ventricular chamber size is normal. Asymmetric septal wall hypertrophy is observed. There is no evidence of LVOT obstruction. There is normal global left ventricular systolic function. ??Ejection fraction is estimated to be 65%. Right ventricular chamber size, wall thickness, and systolic function are within normal limits. Other echo and stress findings as noted in report. 2. STRESS: ??On a Shashi protocol the patient exercised for 10 minutes 00 seconds, achieving 11 METS of exertion, a peak heart rate of 139 bpm (76% maximum predicted), and peak blood pressure of 152/82 mmHg, stopping secondary to fatigue and shortness of breath. With stress he was asymptomatic, hemodynamically stable, had rare PVCs, and developed no significant ST-TW changes. With stress all left ventricular segments became appropriately hyperdynamic. 3. IMPRESSION: There was no evidence of ischemia at this nondiagnostic level of stress. FINDINGS: Rest Left Ventricle ?The left ventricular chamber size is normal. ?Asymmetric septal wall hypertrophy is observed. ?There is no evidence of LVOT obstruction. ?There is normal global left ventricular systolic function. ??Ejection fraction is estimated to be 65%. Left Atrium ?The left atrium is probably normal in size. Right Ventricle ?Right ventricular chamber size, wall thickness, and systolic function are within normal limits. Right Atrium ?The right atrium is probably normal in size. Aortic Valve ?The aortic valve is trileaflet. The leaflets are thin with normal excursion. There is no aortic stenosis or regurgitation present. Mitral Valve ?The mitral valve appears normal in structure and function. ?There is trace mitral regurgitation present. Tricuspid Valve ?The tricuspid valve appears normal in structure and function. ?There is no evidence of tricuspid valve regurgitation present. Pericardium ?The pericardium appears normal and there is no evidence of a pericardial effusion. Stress ?EKG: Q waves. ?EKG: ST elevation. ?The patient is taking a beta edel. Misc ?Other echo and stress findings as noted in report. ?Stress echo, limited spectral Doppler, color Doppler and ECG interpretation performed. FINDINGS: Peak Left Ventricle ?Global left ventricular systolic function appears hyperdynamic. Stress ?Patient followed a Shashi protocol. ?The total exercise duration was:10:00 ?Maximum heart rate achieved was 139, which is 76% of the maximum(182 beats/min). ?The target heart rate was not achieved. ?The patient did not express feelings of chest discomfort. ?The blood pressure response was normal. ?The patient achieved a level of 11 METS. ?There were rare ventricular premature beats. ?There were no significant ST segment changes. ?The echocardiographic response shows no evidence of ischemia, however at insufficient stress. Wall Motion: Segment Name ?Rest ?Peak ? Base-Anteroseptal ?? Normal ?Normal ? Base-Anterior ? Normal ?Normal ? Base-Anterolateral ??Normal ?Normal ? Base-Posterolateral Normal ?Normal ? Base-Inferior ? Normal ?Normal ? Base-Inferoseptal ?? Normal ?Normal ? Mid-Anteroseptal ?Normal ?Normal ? Mid-Anterior ?Normal ?Normal ? Mid-Anterolateral ?? Normal ?Normal ? Mid-Posterolateral ??Normal ?Normal ? Mid-Inferior ?Normal ?Normal ? Mid-Inferoseptal ?Normal ?Normal ? [place]-Septal ? Normal ?Normal ? [place]-Anterior ? Normal ?Normal ? [place]-Lateral ?Normal ?Normal ? [place]-Inferior ? Normal ?Normal ? [place]-Tip ?Normal ?Normal ? This report has been electronically signed by: Siddhartha Yanez MD ? 08/15/2013 13:19:08 Images reviewed and interpretation verified [facility] Cardiac Ultrasound Laboratory Procedure Note Siddhartha Yanez MD - 08/15/2013 Procedure: Stress Echocardiogram Patient: YESY Meng (Age): 1975(37) Med Rec#: [id number] Sex: M [place] Loc[place] [facility] [place] Ht / Wt: 183(cm)/114(kg) Pt. Loc: Echo Lab BSA: 2.35 Study Date: 08/15/2013 Pt. Type: Outpatient Tape: Referring: Shashi Bennett Hospital Security Officer: Mavis Carrington Hospital Security Officer: David Cui Hospital Security Officer: MARYURI Sap Pi Developer: Melvin Morgan Diagnosis:CPT Code(s): ECG Interpretation (46889), Stress Echo (17435), Color Doppler (45194), Optison (48737UY), Doppler LTD (44053), Indication(s):Medication(s): Rhythm: Sinus Stage HR BP Rest 65 122/76 Peak 139 152/82 Recovery 69 120/78 SUMMARY: 1. REST: The left ventricular chamber size is normal. Asymmetric septal wall hypertrophy is observed. There is no evidence of LVOT obstruction. There is normal global left ventricular systolic function. Ejection fraction is estimated to be 65%. Right ventricular chamber size, wall thickness, and systolic function are within normal limits. Other echo and stress findings as noted in report. 2. STRESS: On a Shashi protocol the patient exercised for 10 minutes 00 seconds, achieving 11 METS of exertion, a peak heart rate of 139 bpm (76% maximum predicted), and peak blood pressure of 152/82 mmHg, stopping secondary to fatigue and shortness of breath. With stress he was asymptomatic, hemodynamically stable, had rare PVCs, and developed no significant ST-TW changes. With stress all left ventricular segments became appropriately hyperdynamic. 3. IMPRESSION: There was no evidence of ischemia at this nondiagnostic level of stress. FINDINGS: Rest Left Ventricle The left ventricular chamber size is normal. Asymmetric septal wall hypertrophy is observed. There is no evidence of LVOT obstruction. There is normal global left ventricular systolic function. Ejection fraction is estimated to be 65%. Left Atrium The left atrium is probably normal in size. Right Ventricle Right ventricular chamber size, wall thickness, and systolic function are within normal limits. Right Atrium The right atrium is probably normal in size. Aortic Valve The aortic valve is trileaflet. The leaflets are thin with normal excursion. There is no aortic stenosis or regurgitation present. Mitral Valve The mitral valve appears normal in structure and function. There is trace mitral regurgitation present. Tricuspid Valve The tricuspid valve appears normal in structure and function. There is no evidence of tricuspid valve regurgitation present. Pericardium The pericardium appears normal and there is no evidence of a pericardial effusion. Stress EKG: Q waves. EKG: ST elevation. The patient is taking a beta edel. [facility] [place] Other echo and stress findings as noted in report. Stress echo, limited spectral Doppler, color Doppler and ECG interpretation performed. FINDINGS: Peak Left Ventricle Global left ventricular systolic function appears hyperdynamic. Stress Patient followed a Shashi protocol. The total exercise duration was:10:00 Maximum heart rate achieved was 139, which is 76% of the maximum(182 beats/min). The target heart rate was not achieved. The patient did not express feelings of chest discomfort. The blood pressure response was normal. The patient achieved a level of 11 METS. There were rare ventricular premature beats. There were no significant ST segment changes. The echocardiographic response shows no evidence of ischemia, however at insufficient stress. Wall Motion: Segment Name Rest Peak Base-Anteroseptal Normal Normal Base-Anterior Normal Normal Base-Anterolateral Normal Normal Base-Posterolateral Normal Normal Base-Inferior Normal Normal Base-Inferoseptal Normal Normal Mid-Anteroseptal Normal Normal Mid-Anterior Normal Normal Mid-Anterolateral Normal Normal Mid-Posterolateral Normal Normal Mid-Inferior Normal Normal Mid-Inferoseptal Normal Normal [place]-Septal Normal Normal [place]-Anterior Normal Normal [place]-Lateral Normal Normal [place]-Inferior Normal Normal [place]-Tip Normal Normal This report has been electronically signed by: Siddhartha Yanez MD 08/15/2013 13:19:08 Images reviewed and interpretation verified [facility] Cardiac Ultrasound Laboratory Shashi Bennett MD ECHO ORDERABLES documented in this encounter Visit Diagnoses Diagnosis PAF (paroxysmal atrial fibrillation) Atrial fibrillation documented in this encounter Care Teams Healthcare Social Worker Relationship Specialty Start Date End Date David Templeton MD [address] [place] [address] PCP - General 08/01/13 documented as of this encounter
--- OUTSIDE RECORDS SUMMARY | 2024-04-14 13:54 | XMS_ITS | Encounter Summary ---
Author Organization [facility] Address [address] [place] [address] Care Team Providers Care Vp Of Customer Experience Strategy Name Role Phone Unavailable Primary Care Provider Unavailabl e Encounter Details Date Type Department Care Team (Late st Contact Info) Description 07/02/2007 Results Only [facility] - Map conversion [address] [place] [address] Diallo Galeana MD [address] [place] [id number] Social History Tobacco Use Types Packs/Day Years Used Date Smoking Tobacco: Never Assessed Sex and Gender Information Value Date Recorded Sex Assigned at Not on file Gender Identity Not on file Sexual Orientation Not on file documented as of this encounter Plan of Treatment Not on file documented as of this encounter Procedures Procedure Name Priority Date/Time Associated Diagnosis Comments SURGICAL PATHOLOGY Routine 07/02/2007 0:00 EDT documented in this encounter Results * SURGICAL PATHOLOGY (07/02/2007 0:00 EDT) Pathology Report: SURGICAL PATHOLOGY REPORT Reports generated via electronic interface contain original data; however they are lacking the format of the original report. Caution should be taken when reading/interpreti ng unformatted reports. Name: ? BISMARK MAR ? Accession #: ? [id number] ? : ? 1975 (Age: 31) ??M ? Collect Date: ? 07/02/2007 ? Location: ? [facility] ? Receive Date: ? 07/03/2007 ? Provider: DIALLO GALEANA MD Copy to: ANGELIA PAZ MD ? Final Pathologic Diagnosis: ? Gallbladder, cholecystectomy: 1. ?Acute cholecystitis. 2. ? Cholelithiasis. 3. ? Benign, reactive lymph node (0/1). Document reviewed and electronically signed by: Jorge A Landis MD Report ??Date: 07/10/2007 08:15 By the signature above, the attending physician certifies that he/she has personally conducted a gross and/or microscopic examination of the described specimens and rendered or confirmed the above diagnosis. Specimen(s) Received: ? Gallbladder Clinical History: ? Acute cholecystitis Gross Description: ? Received in formalin labelled Drown and gallbladder is a partially opened product of a cholecystomy measuring 10.6 cm in length and 3.2 cm in diameter. It surfaced by a cano glistening serosa. Upon sectioning, the mucosa is cano-green, smooth to focally trabecular and the underlying wall averages 0.3 cm in thickness. The lumen contains a moderate amount of green mucoid bile with multiple yellow-brown fragmented choleliths measuring 5.5 x 5.0 x 2.0 cm in aggregate. The cystic duct measures 0.4 cm in length, 0.3 cm in diameter and is not grossly patent. There is an ovoid cano-pink 0.7 x 0.7 x 0.4 cm cystic duct node identified. Four operations support representative sections are submitted in one cassette which includes the cystic duct margin, the cystic duct node, and two sections of gallbladder. /lizbeth End of Report [facility] 07/02/2007 07/03/2007 21: 04 EDT Diallo Galeana MD PATHOLOGY ORDERABLE S Performing Organization Address City/State/[facility] Co de Phone Number NUÑEZ [facility] [address] [place] [address] documented in this encounter Visit Diagnoses Not on filedocumented in this encounter
--- OUTSIDE RECORDS SUMMARY | 2024-04-14 13:54 | XMS_ITS | Encounter Summary ---
Author Organization [facility] [place] [address] Care Team Providers Care Log Marker Name Role Phone Debbie Dukes MD Primary Care Provider [phone] Reason for Visit * Reason Onset Date Comments Medication Refill 01/15/2012 Encounter Details Date Type Department Care Team (Late st Contact Info) Description 01/15/2012 Refill Cardiology at [address] [phone] Robby Allen MD [facility] [place] [address] Medication Refill Social History Tobacco Use Types Packs/Day Years [...] on filedocumented in this encounter Care Teams Log Marker Relationship Specialty Start Date End Date Debbie Dukes MD [address] [place], [place] [phone] PCP - General 09/20/11 07/31/13 documented as of this encounter
--- OUTSIDE RECORDS SUMMARY | 2024-04-14 13:54 | XMS_ITS | Encounter Summary ---
[place] [address] Care Team Providers Care Hop Sorter Name Role Phone Debbie Dukes MD Primary Care Provider [phone] Reason for Visit * Reason Onset Date Comments Medication Refill 01/20/2013 Encounter Details Date Type Department Care Team (Late st Contact Info) Description 01/20/2013 [place] [phone] Alexa Moyer APRN [facility] [place] [address] Epilepsy (Primary Dx) Social History Tobacco Use [...] encounter Miscellaneous Notes * Telephone Encounter - Antionette Pickett RN - 01/27/2013 10:04 AM EDT Confirmed with pharmacy that rx done on 12/18/12 was not received at pharmacy Order as written on 12/18/12 verbally given to pharmacist documented in this encounter Plan of Treatment Not on file documented as of this encounter Visit Diagnoses Diagnosis Epilepsy- Primary Unspecified epilepsy without mention of intractable epilepsy documented in this encounter Care Teams Hop Sorter Relationship Specialty Start Date End Date Debbie Dukes MD [address] [place] [address] PCP - General 09/20/11 07/31/13 documented as of this encounter
--- OUTSIDE RECORDS SUMMARY | 2024-04-14 13:54 | XMS_ITS | Encounter Summary ---
Author Organization [facility] Address [place] [phone] Care Team Providers Care Order Entry Technician Name Role Phone Debbie Dukes MD Primary Care Provider Reason for Visit * Reason Onset Date Comments Medication Refill 03/19/2012 Encounter Details Date Type Department Care Team (Late st Contact Info) Description 03/19/2012 Refill Cardiology at [address] [phone] Usha Reilly MD [facility] [place] [address] Medication Refill Social History Tobacco Use Types [...] encounter Miscellaneous Notes * Telephone Encounter - Kelsea Hobbs RN - 03/20/2012 8:40 AM EDTFrom: YESYBISMARK To: Usha Reilly MD Sent: SunMar 19, 2012 11:18 PM Subject: Medication Renewal Request Original authorizing provider: MD Clinton ELseun Mar would like a refill of the following medications: DILTiazem (CARDIZEM CD) 180 mg 24 hr capsule [USHA REILLY MD] Preferred pharmacy: [facility] Comment: documented in this encounter Plan of Treatment Not on file documented as of this encounter Visit Diagnoses Diagnosis Atrial fibrillation documented in this encounter Care Teams Order Entry Technician Relationship Specialty Start Date End Date Debbie Dukes MD [address] [place] [address] PCP - General 09/20/11 07/31/13 documented as of this encounter
--- OUTSIDE RECORDS SUMMARY | 2024-04-14 13:54 | XMS_ITS | Encounter Summary ---
[place] [address] Care Team Providers Care Game Producer Name Role Phone Debbie Dukes MD Primary Care Provider [phone] Encounter Details Date Type Department Care Team (Latest Contact Info) Description 03/14/2012 9:54 AM EDT - 03/14/2012 11:59 PM EDT Hospital Encounter Non[place] [phone] AF (atrial fibrillation) Social History Tobacco Use Types Packs/Day [...] Procedure Name Priority Date/Time Associated Diagnosis Comments ZIOPATCH Routine 03/14/2012 10:56 AM EDT AF (atrial fibrillation) documented in this encounter Results * ZIOPATCH (03/14/2012 10:56 AM EDT) Anatomical Region Laterality Modality Other Narrative 04/25/2012 9:53 AM EDT Ziopatch Floor Coverer Indication: Atrial Fibrillation Interpreting Physician: Dr. Robby Allen Duration of Monitorin-03/17/12(2 days and 15 hrs) Findings: No evidence of Ventricular tachycardia and no SVT. No pauses >3 seconds and no evidence of high grade AV block. No evidence of Atrial Fibrillation. Predominant Rhythm was Sinus with HR range from 57 to 115 with an average HR of 76 with rare PACs(<0.1%) but no sustained arrhythmias. Patient reported single episode of chest pain/pressure(03/16/12 @ 6:00am) which was when he woke up and lasted less than 1 minute in duration which correlated with Artifact on the tracing with no arrhythmias. Impression: No arrhythmias noted during this monitoring period and specifically no AF. No ventricular arrhythmias noted at times of symptoms. Patient has PACs and brief salvos but predominantly sinus rhythm at the time of his single episode of symptoms. Procedure Note Robby Allen MD - 04/25/2012 Ziopatch Floor Coverer Indication: Atrial Fibrillation Interpreting Physician: Dr. Robby Allen Duration of Monitorin-03/17/12(2 days and 15 hrs) Findings: No evidence of Ventricular tachycardia and no SVT. No pauses >3 seconds and no evidence of high grade AV block. No evidence of Atrial Fibrillation. Predominant Rhythm was Sinus with HR range from 57 to 115 with an averageHR of 76 with rare PACs(<0.1%) but no sustained arrhythmias. Patient reported single episode of chest pain/pressure(03/16/12 @ 6:00am)which was when he woke up and lasted less than 1 minute in duration whichcorrelated with Artifact on the tracing with no arrhythmias. Impression: No arrhythmias noted during this monitoring period and specifically noAF. No ventricular arrhythmias noted at times of symptoms. Patient has PACs and brief salvos but predominantly sinus rhythm at thetime of his single episode of symptoms. Robby Allen MD CARDIAC SERVICES ORD ERABLES documented in this encounter Visit Diagnoses Diagnosis AF (atrial fibrillation) Atrial fibrillation documented in this encounter Care Teams Game Producer Relationship Specialty Start Date End Date Debbie Dukes MD [address] [place] [address] PCP - General 09/20/11 07/31/13 documented as of this encounter
--- OUTSIDE RECORDS SUMMARY | 2024-04-14 13:54 | XMS_ITS | Encounter Summary ---
[place] [address] Care Team Providers Care Religious Educator Name Role Phone David Templeton MD Primary Care Provider [phone] Encounter Details Date Type Department Care Team (Late st Contact Info) Description 10/22/2013 1:15 PM EST [place] [id number] Alexa Moyer APRN [facility] [place] [address] Epilepsy; High risk medication use Discharge Disposition: Home Social History Tobacco Use [...] Sign Reading Time Taken Comments Blood Pressure 126/76 10/22/2013 1:25 PM EST Pulse 71 10/22/2013 1:25 PM EST Temperature - - Respiratory Rate - - Oxygen Saturation - - Inhaled Oxygen Concentration - - Weight 116.5 kg (256 lb 12.8 oz) 10/22/2013 1:25 PM EST Height 181.6 cm (5' 11.5) 10/22/2013 1:25 PM ES T Reported Body Mass Index 35.32 10/22/2013 1:25 PM EST documented in this encounter Progress Notes * Alexa Moyer, ACCOUNT MANAGER RELIEF - 10/22/2013 1:51 PM EST Subjective: [facility] OUTPATIENT FOLLOW UP NOTE [...] follow-up evaluation. Patient came to the office alone Interval history (seizure type and frequency): The patient has had one seizure since last clinic visit. This occurred about 7 months ago in the setting of stress. This represents much better control than previously. He had one other time that he woke up from an afternoon nap feeling sore but cannot tell if that was a seizure. He is generally doing well. He has been seeing a male model for A fib and hypertension but that is currently under good control. He had a bout of chest pain which was worked up and ended up being a hiatal hernia. He has had some stress with a recently relationship. Otherwise, no new problems. Social History: History Social History ??? Marital Status: Spouse Name: N/A Number of Children: N/A ??? Years of Education: N/A Occupational History ??? Not on file. Social History Main Topics ??? Smoking status: Never Smoker ??? Smokeless tobacco: Never Used ??? Alcohol Use: No ??? Drug Use: No ??? Sexually Active: Comment: deferred Other Topics Concern ??? Not on file Social History Narrative ??? Recently was living with his girlfriend but they broke up and he had to move back with his father. Seizure Control: QEpilepsy 10/22/2013 Last seizure was: Within past year Number of seizures in past month: 0 Were seizures disabling? No Social Factors: Social Factors 10/22/2013 Employment status: No Currently driving: No Review of Systems: Review of systems 10/22/2013 1. double vision Never 2. headache Rarely 3. rash Never 4. unsteadiness Rarely 5. upset stomach, nausea, vomiting Rarely 6. troubles with gums or teeth Rarely 7. weight loss or gain Never 8. tremors or shaking Never 9. restlessness Sometimes 10. dizziness Rarely 11. tiredness/sleepiness Sometimes 12. trouble sleeping Often 13. difficulties concentrating Sometimes 14. feelings of aggression Rarely 15. depression Often 16. thoughts about ending your life Never 17. palpitations or chest pains Never 18. bladder problems Never 19. breathing problems Never Memory and concentration symptoms (QOLIE-31) Memory and concentration symptoms (QOLIE-31) 10/22/2013 Memory problems A little of the time Difficulty reasoning and solving problems Some of the time Trouble remembering things people tell A little of the time Trouble concentrating on reading Some of the time Trouble concentrating on doing one thing at a time Some of the time How much do your memory difficulties bother you? 2 QOLIE-31 7 (low scores suggest severe memory symptoms) Depression Score (NDDI-E) Depression Score (NDDI-E) 10/22/2013 Depression Score 13 (scores >15 suggest Major Depression) Quality of Life Quality of Life 10/22/2013 Quality of Life (10-Best Quality of Life; 0-Worst Quality of Life) 4 Past Medical History Diagnosis Date ??? Hypertension [...] tablet Take 5 mg by mouth daily. No Known Allergies Objective: Blood pressure 126/76, pulse 71, height 181.6 cm (5' 11.5), weight 116.484 kg (256 lb 12.8 oz). Awake, alert, EOMI, no tremor, gait stable, no obvious rash, affect is somewhat flat. Assessment and Plan: - Epilepsy: Having seizures approximately every 6-8 months. Will continue present medications. He is not interested in making any changes or adjustments. - Screen for medication toxicity: I am checking CBC, LFTs, lamictal and dilantin levels - The patient is currently not a candidate for epilepsy surgery as seizures are well controlled. - Bone health: currently taking Ca and VIt D - Social and psychiatric issues: pt is depressed at times. Would like to restart an antidepressant.He feels it is situational related to a recent breakup with his girlfriend. - Patient counselled about sleep apnea. 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 He will contact his doctor to arrange getting a CPAP. - Prescriptions were renewed. - Patient will be seen again by the epilepsy team in 1 year. documented in this encounter Plan of Treatment Not on file documented as of this encounter Procedures Procedure Name Priority Date/Time Associated Diagnosis Comments LAMOTRIGINE LVL Routine 10/22/2013 2:08 PM EST Epilepsy HEMOGRAM Routine 10/22/2013 2:08 PM EST High risk medication use PHENYTOIN LEVEL, TOTAL AND FREE Routine 10/22/2013 2:08 PM EST Epilepsy HEPATIC FUNCTION PANEL Routine 10/22/2013 2:08 PM EST High risk medication use documented in this encounter Results * Hepatic Function Panel (10/22/2013 2:08 PM EST) Total Protein 7.2 6.4 - 8.3 gm/dL [facility] Albumin 4.5 3.2 - 5.2 gm/dL [facility] AST 19 0 - 39 unit/L [facility] ALT 27 0 - 55 unit/L [facility] Alk Phos 113 40 - 120 unit/L [facility] Total Bilirubin 0.4 0.2 - 1.3 mg/dL [facility] Bili, Direct 0.1 0.0 - 0.3 mg/dL [facility] Blood specimen (specimen) 10/22/2013 2:08 PM EST 10/22/2013 2:13 PM EST Narrative Resulting Agency Comment Spec In Lab Annie Soto MD CHEMISTRY ORDERABLES [facility] * Hemogram (10/22/2013 2:08 PM EST) WBC 5.4 4.0 - 10.0 x10(3)/mcL [facility] RBC 4.94 4.63 - 6.08 x10(6)/mcL [facility] Hemoglobin 15.7 13.7 - 17.5 gm/dL [facility] Hematocrit 45.1 40.0 - 51.0 % [facility] MCV 91.3 79.0 - 92.0 fL [facility] MCH 31.8 25.6 - 32.2 pg [facility] MCHC 34.8 32.0 - 36.5 gm/dL [facility] Platelets 245 145 - 370 x10(3)/mcL [facility] RDWSD 41.9 35.0 - 46.0 fL [facility] RDWCV 12.6 10.9 - 14.4 % [facility] MPV 9.5 9.0 - 12.0 fL [facility] Blood specimen (specimen) 10/22/2013 2:08 PM EST 10/22/2013 2:13 PM EST Narrative Resulting Agency Comment Spec In Lab Annie Soto MD HEMATOLOGY ORDERABLE S Performing Organization Address City/[facility] Co de Phone Number [facility] * Lamotrigine Lvl (10/22/2013 2:08 PM EST) Lamotrigine Lvl 3.7 2.5 - 15.0 mcg/mL [facility] Comment: Test Performed by: [facility] [place] [address] Adjustment Clerk: Minoo Cain, Ph.D. Blood specimen (specimen) 10/22/2013 2:08 PM EST 10/22/2013 3:16 PM EST Narrative Resulting Agency Comment Spec In Lab Annie Soto MD CHEMISTRY ORDERABLES [facility] * (ABNORMAL) Phenytoin level, total and free (10/22/2013 2:08 PM EST) Phenytoin Lvl 22.0(H) 10.0 - 20.0 mg/L [facility] Comment: Theraputic range: ??10-20 mg/L Toxic: ??> 25 mg/L Patients with renal dysfunction (e.g.creatinine clearance < 30 mls/min) may show falsely elevated results due to accumulation of metabolites in renal failure Phenytoin, Free 1.55 1.00 - 2.00 mg/L [facility] Comment: Therapeutic range: ? Free phenytoin: ??1.00-2.00 mg/L ? % Free phenytoin: ??8-12% Toxic range: ? Free phenytoin: ??>3.00 mg/L Phenytoin Free% 7(L) 8 - 12 % [facility] Blood specimen (specimen) 10/22/2013 2:08 PM EST 10/22/2013 2:13 PM EST Narrative Resulting Agency Comment Spec In Lab Annie Soto MD CHEMISTRY ORDERABLES [facility] documented in this encounter Visit Diagnoses Diagnosis Epilepsy Unspecified epilepsy without mention of intractable epilepsy High risk medication use Encounter for long-term (current) use of other medications documented in this encounter Care Teams Religious Educator Relationship Specialty Start Date End Date David Templeton MD [address] [place] [address] PCP - General 08/01/13 documented as of this encounter
--- OUTSIDE RECORDS SUMMARY | 2024-04-14 13:54 | XMS_ITS | Encounter Summary ---
Author Organization [facility] Address [address] [place] [address] Care Team Providers Care Lens Grinder And Polisher Name Role Phone Unavailable Primary Care Provider Unavailabl e Encounter Details Date Type Department Care Team ([facility] st Contact Info) Description 05/04/2014 Results Only [facility] [phone] Gokul Colbert MD [address] [place] [phone] Social History Tobacco Use Types Packs/Day Years Used Date Smoking Tobacco: Never Assessed Sex and Gender Information Value Date Recorded Sex Assigned at Not on file Gender Identity Not on file Sexual Orientation Not on file documented as of this encounter Plan of Treatment Not on file documented as of this encounter Procedures Procedure Name Priority Date/Time Associated Diagnosis Comments SURGICAL PATHOLOGY Routine 05/04/2014 9:12 EDT documented in this encounter Results * SURGICAL PATHOLOGY (05/04/2014 9:12 EDT) Pathology Report: SURGICAL PATHOLOGY REPORT Reports generated via electronic interface contain original data; however they are lacking the format of the original report. Caution should be taken when reading/interpreting unformatted reports. Name: ? BISMARK MAR ? Accession #: ? [id number] ? : ? 1975 (Age: 38) ??M ? Collect Date: ? 05/04/2014 ? Location: ? [facility] ? Receive Date: ? 05/05/2014 ? Provider: GOKUL COLBERT MD Copy to: ? Final Pathologic Diagnosis: SKIN OF LEG, LEFT LOWER, PUNCH BIOPSY: - Dermal and septal fibrosis with associated stasis changes. See microscopic and comment. Comment: The biopsy has a background of chronic venous stasis. Also present is dermal fibrosis with associated fibrosis of the septae of the subcutis. 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 However, clinical correlation is essential. This case was shown in intradepartmental consultation. (Dr. Dickey)/[facility] Microscopic Description: Sections consist of a punch biopsy of skin. ??There is compacted orthohyperkeratosis overlying an epidermis which is relatively unremarkable. Within the dermis are nodular aggregates of thickened blood vessels with associated erythrocyte extravasation. ??The dermis is expanded by fibrosis with associated fibrosis of the septae of the subcutis. Hemosiderin deposition is seen throughout the dermis and extending into the septae of the subcutis. Focal membranous change to the fat is identified. ??Deeper levels have been examined. (Dr. Dickey)/[facility] Document reviewed and electronically signed by: LILLIAM DICKEY MD Report ??Date: 05/07/2014 13:32 By the signature above, the attending physician certifies that he/she has personally conducted a gross and/or microscopic examination of the described specimens and rendered or confirmed the above diagnosis. Specimen(s) Received: 4.0 mm punch biopsy L lower leg Clinical History: Chronic lesion, approximately 3.0-4.0 cm Gross Description: ? Received in formalin labelled with proper patient identification (initials D, D) and L lower leg is a punch biopsy of frank-white skin (0.4 cm in diameter and 0.6 cm in thickness). ??Bisected and submitted in 1. Codie Mcknight 05/05/2014 09:50 AM End of Report [facility] 05/04/2014 9:12 EDT 05/05/2014 9:12 EDT Gokul Colbert MD PATHOLOGY ORD ERABLES [facility] [address] [place] [address] documented in this encounter Visit Diagnoses Not on filedocumented in this encounter
--- OUTSIDE RECORDS SUMMARY | 2024-04-14 13:54 | XMS_ITS | Encounter Summary ---
[place] [address] Care Team Providers Care Personnel Security Assistant Name Role Phone Debbie Dukes MD Primary Care Provider [phone] Reason for Visit * Reason Onset Date Comments Results 04/11/2012 lab from 04/04/20 12 Encounter Details Date Type Department Care Team (Late st Contact Info) Description 04/11/2012 [place] [address] Alexa Moyer APRN [facility] [place] [address] Results (lab from 04/04/2012) Social History Tobacco Use Types Packs/Day Years [...] Telephone Encounter - Kiara Lance LPN - 04/11/2012 11:03 AM EDT Follow up call : I was only able to leave a voicemail informing the patient that Andie Ocampo reviewed his lamictal level from 04/04/2012 and it was low at 1.7. She would like him to increase his Lamictal to 200 mg twice daily and she put in a script to his pharmacy to reflect the increase. I asked that he call our office if he had any questions re: the message I left. * Telephone Encounter - Alexa Moyer APRN - 04/11/2012 9:24 AM EDT Pt should increase his dose of Lamictal to 200mg twice daily. I will send a new prescription. * Telephone Encounter - Kiara Lance LPN - 04/11/2012 8:56 AM EDT Date of lab: 04/04/2012 Lab: Lamictal level 1.7 Ref. Range 2.5-15 ( last lamictal level on 01/13/2012 Was 1.2 ) documented in this encounter Plan of Treatment Not on file documented as of this encounter Visit Diagnoses Not on filedocumented in this encounter Care Teams Personnel Security Assistant Relationship Specialty Start Date End Date Debbie Dukes MD [address] [place] [address] PCP - General 09/20/11 07/31/13 documented as of this encounter
--- OUTSIDE RECORDS SUMMARY | 2024-04-14 13:54 | XMS_ITS | Encounter Summary ---
Author Organization [facility] [place] [address] Care Team Providers Care Mortician Helper Name Role Phone David Templeton MD Primary Care Provider [phone] Encounter Details Date Type Department Care Team (Late st Contact Info) Description 01/17/2017 9:00 AM EDT Office [place] [address] Alexa Moyer APRN [facility] [place] [address] Partial symptomatic epilepsy with complex partial seizures, not intractable, without status epilepticus; High risk medication use; Hypovitaminosis D Social History Tobacco Use Types Packs/Day Years [...] Sign Reading Time Taken Comments Blood Pressure 132/80 01/17/2017 8:53 AM EDT Pulse 66 01/17/2017 8:53 AM EDT Temperature - - Respiratory Rate - - Oxygen Saturation - - Inhaled Oxygen Concentration - - Weight 124.2 kg (273 lb 12.8 oz) 01/17/2017 8:53 AM EDT Height 182.9 cm (6') 01/17/2017 8:53 AM EDT repo rted Body Mass Index 37.13 01/17/2017 8:53 AM EDT documented in this encounter Progress Notes * Alexa Moyer, PAPER CUP HANDLE MACHINE OPERATOR - 01/17/2017 9:00 AM EDT Subjective: [facility] OUTPATIENT FOLLOW UP NOTE Patient Active Problem List Diagnosis ??? Lower urinary tract symptoms ??? Nocturia ??? Obesity ??? Atrial fibrillation with rapid ventricular response New Paroxysmal AFib, rapid VR when in afib Normal LV function EF= 70% Thickened Septum, ? HOCM On diltiazem drip-->Diltiazem Intermittent afib/sinus History of hypothyroidism, on replacement, normal TSH Sinus rhythm - 12 lead EKG 08/15/2011 ??? Possible Hypertrophic cardiomyopathy History of HTN HCM, non obstructive, EF~ 65=75% Echo 2003 Septal hypertrophy with WEST Echo 2004 Septal hypertrophy with obstruction at rest or [...] evaluation. Patient came to the office alone History: 41 year old male with history of afib, HTN, cardiomyopathy and seizure disorder without since . He had a hospitalization in 2003 where he lost conciousness, was hospitalized and found to have afib. He was started on medication for afib and diagnosed with cardiomyopathy. He said a year or so later he had another episode and at that time was diagnosed with seizure disorder. He hastried dilantin, phenobarbital and Keppra on various doses. Patient reports that he sometimes notice an aura before seizures, but he describes it as feeling mason weird, like ronnie kian. Seizures start with with right shoulder shrug, face turns red with face twitch. After his right side limbs start shaking, the shaking spreads to all four limbs. He also makes a sucking noise at that time. He has bit his tongue and cheek before. He has post- ictal periods, feeling very tired and often confused for an hour or so. He notes that when his seizures started years ago, he noted that alcohol was a trigger. He has no history of febrile seizures. He was born one month early, jaundiced, with no trauma at . He had no hisotory of meningitis or encephalitis. He had head trauma at age 15 and lost consciousness for 4-5 hours and was hospitalized for a couple of days. He has a history of depression. Interval history (seizure type and frequency): The patient has had no seizures since last clinic visit. He has not had a seizure for several years. He continues to live in his father's home with his sons. He is in a relationship with a woman thathe is happy with. He is tolerating his medications well. Cardiac issues are stable. No new medical i ssues. He had one incident of syncope when he stayed in a hot tub for too long at [facility]. Other than that, no new issues. Social History: Social History Social History ??? Marital status: Spouse name: N/A ??? Number of children: N/A ??? Years of education: N/A Occupational History ??? Not on file. Social History Main Topics ??? Smoking status: Never Smoker ??? Smokeless tobacco: Never Used ??? Alcohol use Yes Comment: seldom ??? Drug use: No ??? Sexual activity: Not on file Comment: deferred Other Topics Concern ??? Not on file Social History Narrative Seizure Control: QEpilepsy 01/17/2017 Last seizure was: More than 1 year ago Number of seizures in past month: - Were seizures disabling? 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 double vision Never 2. headache Rarely 3. rash Rarely 4. unsteadiness Never 5. upset stomach, nausea, vomiting Rarely 6. troubles with gums or teeth Never 7. weight loss or gain Never 8. tremors or shaking Never 9. restlessness Never 10. dizziness Never 11. tiredness/sleepiness Rarely 12. trouble sleeping Rarely 13. difficulties concentrating Never 14. feelings of aggression Rarely 15. depression Rarely 16. thoughts about ending your life Never 17. palpitations or chest pains Sometimes 18. bladder problems Never 19. breathing problems Sometimes Memory and concentration symptoms (QOLIE-31) QEPILEPSY QOLIE31 01/17/2017 Memory problems Some of the time Difficulty reasoning and solving problems None of the time Trouble remembering things people tell A little of the time Trouble concentrating on reading None of the time Trouble concentrating on doing one thing at a time None of the time How much do your memory difficulties bother you? 1 - Not at all bothersome QOLIE-31 9 (low scores suggest severe memory symptoms) Depression Score (NDDI-E) QEPILEPSY DEPRESSION SCORE 01/17/2017 Depression Score 8 (scores >15 suggest Major Depression) Quality of Life QEPILEPSY QOL 01/17/2017 Quality of Life (10-Best Quality of Life; 0-Worst Quality of Life) 7 Past Medical History: Diagnosis Date ??? Atrial fibrillation ??? Erectile dysfunction ??? Hypertension ??? Hypothyroidism ??? Seizure Current Outpatient Prescriptions on File Prior to Visit Medication Sig Dispense Refill ??? levothyroxine (SYNTHROID) 50 mcg Tablet Take 50 mcg by mouth daily. Takes with the 200mcg to = 250mcg ? ? phenytoin (DILANTIN) 100 mg ER capsule Take 1 cap in am & 2 cap in pm on daily basis 90 tablet 5 ??? lamoTRIgine (LAMICTAL) 100 mg tablet Take by mouth 2 times daily. 300mg/am 400mg/pm ??? DILTiazem (CARDIZEM CD) 180 mg 24 hr capsule Take 1 capsule by mouth 2 times daily. 180 capsule3 ??? metoprolol succinate (TOPROL-XL) 100 mg XL tablet Take 1 tablet by mouth daily. 90 tablet 3 ??? hydrochlorothiazide (HYDRODIURIL) 12.5 mg tablet Take 12.5 mg by mouth daily. ??? levothyroxine (SYNTHROID) 200 mcg tablet Take 200 mcg by mouth daily. Takes with 50mcg Indications: ADJUNCT TO SURGERY OR RADIOTHERAPY FOR THYROID CARCINOMA ??? aspirin (ENTERIC COATED ASPIRIN) 325 mg EC tablet Take 1 tablet by mouth daily. 30 tablet 3 ??? lisinopril (PRINIVIL;ZESTRIL) 5 mg tablet Take 5 mg by mouth daily. ??? Cholecalciferol, Vitamin D3, 5,000 unit Cap Take 10,000 Units by mouth daily. Reported on 01/17/2017 No current facility-administered medications on file prior to visit. No Known Allergies Objective: Blood pressure 132/80, pulse 66, height 182.9 cm (6'), weight (!) 124.2 kg (273 lb 12.8 oz). Awake,alert, EOMI, he has moderate gingival hypertrophy, no tremor, gait stable, no obvious rash, mood stable. Assessment and Plan: - Epilepsy: Has been seizure free for the past several years.?? Will continue present medications. - Screen for medication toxicity: I am checking CBC, CMP, lamictal vitamin D and dilantin levels - The patient is currently not a candidate for epilepsy surgery as seizures are well controlled. - Bone health: currentlynot taking Ca and VIt D. He was low on vitamin D in the past then was put on 10,000 units and his level was high however he has not taken vitamin D for about a year. Will check a level today. - Social and psychiatric issues: Depression has improved. He is in a new relationship and seems happy. 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 - Patient counselled about the gingival hypertrophy. I encouraged him to floss regularly. - Prescriptions were renewed. - Patient will be seen again by the epilepsy team in 1 year. documented in this encounter Miscellaneous Notes * Addendum Note - Cole Celeste - 01/17/2017 9:38 AM EDTAddended by: COLE CELESTE on: 01/17/2017 09:38 AM Modules accepted: Orders documented in this encounter Plan of Treatment Not on file documented as of this encounter Procedures Procedure Name Priority Date/Time Associated Diagnosis Comments LAMOTRIGINE LVL Routine 01/17/2017 9:52 AM EDT Partial symptomatic epilepsy with complex partial seizures, not intractable, without status epilepticus HEMOGRAM Routine 01/17/2017 9:52 AM EDT High risk medication use PHENYTOIN LEVEL, TOTAL AND FREE Routine 01/17/2017 9:52 AM EDT Partial symptomatic epilepsy with complex partial seizures, not intractable, without status epilepticus VITAMIN D, 25-HYDROXY Routine 01/17/2017 9:52 AM EDT Hypovitaminosis D COMPREHENSIVE METABOLIC PANEL (NON-FASTING) Routine 01/17/2017 9:52 AM EDT High risk medication use documented in this encounter Results * Vitamin D, 25-Hydroxy (01/17/2017 9:52 AM EDT) 25-OH Vit D Total 34 30 - 100 ng/mL [facility] Comment: Deficient <10 ng/mL Insufficient 10 to 29 ng/mL Sufficient 30 to 100 ng/mL Potential Intoxication >100 ng/mL According to the US National Osteoporosis Foundation, Vitamin D concentrations >30 ng/mL are sufficient to protect bone health. ??The National Kidney Foundation has similarly stated that patients with Vitamin D concentrations <30ng/mL should be considered to be insufficient or deficient. http://Clusterize/DHnatlkidneyfoundation http://Clusterize/DHMCVitD The IDS iSYS Vitamin D Immunoassay detects both 25-OH Vitamin D2 and 25-OH Vitamin D3, but only a total Vitamin D concentration is reported. Blood specimen (specimen) 01/17/2017 9:52 AM EDT 01/17/2017 1:14 PM EDT Narrative Resulting Agency Comment Spec In Lab Alexa Moyer APRN CHEMISTRY ORDERABLES [facility] [place] [address] * Comprehensive metabolic panel (non-fasting) (01/17/2017 9:52 AM EDT) Glucose Lvl 99 65 - 199 mg/dL [facility] Comment:Diabetes: >=200 mg/d L plus symptoms BUN 16 10 - 20 mg/dL [facility] Creatinine 0.83 0.80 - 1.50 mg/dL [facility] Comment: Please note that the pediatric reference intervals supplied above were not validated at [facility]. Results from pediatric patients should be interpreted in conjunction to the patient's age, height and muscle mass. Sodium 138 135 - 145 mmol/L [facility] Potassium 4.3 3.5 - 5.0 mmol/L [facility] Comment: Please note: ??Patients with WBC >100,000 may have falsely elevated Potassium levels. ??For accurate Potassium quantification in these patients send serum separator tube (gold top) for subsequent determinations. ??Contact the Clinical Chemistry Laboratory if there are any questions. Chloride 101 98 - 107 mmol/L [facility] CO2 24 22 - 31 mmol/L [facility] Anion Gap 13 5 - 15 mmol/L [facility] Calcium 9.0 8.5 - 10.5 mg/dL [facility] Total Protein 7.3 6.1 - 8.0 gm/dL [facility] Albumin 4.4 3.2 - 5.2 gm/dL [facility] AST 22 0 - 39 unit/L [facility] ALT 29 0 - 55 unit/L [facility] Alk Phos 113 40 - 120 unit/L [facility] Total Bilirubin 0.3 0.2 - 1.3 mg/dL [facility] Bili, Direct 0.1 0.0 - 0.3 mg/dL [facility] Estimated GFR >60 >=60 [facility] Comment: This estimated GFR (eGFR) value was calculated using the MDRD equation which has been validated on patients between the ages of 18 and 70. The MDRD should not be used to assess kidney function in patients < 18 years of age or in patients with extremes of body mass, or in patients with acute kidney failure. This value should be multiplied by 1.2 for patients. For further information please copy and paste the following links into your internet browser. http://Clusterize/DHnkdep http://Clusterize/DHMCnkf Blood specimen (specimen) 01/17/2017 9:52 AM EDT 01/17/2017 10:05 AM EDT Narrative Resulting Agency Comment Spec In Lab Alexa Moyer ZAY CHEMISTRY ORDERABLES [facility] [place] [address] * (ABNORMAL) Hemogram (01/17/2017 9:52 AM EDT) WBC 5.3 4.0 - 9.5 x10(3)/[facility] RBC 4.73 4.58 - 5.54 x10(6)/[facility] Hemoglobin 15.7 13.7 - 16.5 gm/dL [facility] Hematocrit 43.9 40.5 - 48.5 % [facility] MCV 92.8 82.9 - 93.1 [facility] MCH 33.2(H) 27.5 - 32.1 pg [facility] MCHC 35.8(H) 32.0 - 35.7 gm/dL [facility] Platelets 265 145 - 357 x10(3)/[facility] RDWSD 42.7 36.0 - 45.0 [facility] RDWCV 12.4 11.4 - 13.8 % [facility] MPV 9.1 7.6 - 12.9 [facility] nRBC % Auto 0.0 % [facility] nRBC Abs Auto 0.000 0.000 - 0.000 x10(3)/[facility] Blood specimen (specimen) 01/17/2017 9:52 AM EDT 01/17/2017 10:05 AM EDT Narrative Resulting Agency Comment Spec In Lab Alexa Moyer APRN HEMATOLOGY ORDERABLE S Performing Organization Address [facility] Co de Phone Number [facility] [place] [address] * Lamotrigine Lvl (01/17/2017 9:52 AM EDT) Lamotrigine Lvl 3.3 2.5 - 15.0 mcg/mL [facility] Comment: ADDITIONAL INFORMATION This test was developed and its performance characteristics determined by [facility] in a manner consistent with CLIA requirements. This test has not been cleared or approved by the U.S. Food and Drug Administration. Test Performed by: [facility] - [address] [address] Blood specimen (specimen) 01/17/2017 9:52 AM EDT 01/17/2017 11:59 AM EDT Narrative Resulting Agency Comment Spec In Lab Alexa Moyer PAPER CUP HANDLE MACHINE OPERATOR CHEMISTRY ORDERABLES Performing Organization Address [facility] Phone Number [facility] [place] [address] * Phenytoin level, total and free (01/17/2017 9:52 AM EDT) Phenytoin Lvl 19.8 10.0 - 20.0 mg/L [facility] Comment: Theraputic range: ??10-20 mg/L Toxic: ??> 25 mg/L Patients with renal dysfunction (e.g.creatinine clearance < 30 mls/min) may show falsely elevated results due to accumulation of metabolites in renal failure Phenytoin, Free 1.78 1.00 - 2.00 mg/L [facility] Comment: Therapeutic range: ? Free phenytoin: ??1.00-2.00 mg/L ? % Free phenytoin: ??8-12% Toxic range: ? Free phenytoin: ??>3.00 mg/L This test was developed and its performance characteristics determined by [facility]. It has not been cleared or approved by the FDA. The laboratory is regulated under CLIA as qualified to perform high-complexity testing. This test is used for clinical purposes. It should not be regarded as investigational or for research. Phenytoin Free% 9 8 - 12 % [facility] Comment: This test was developed and its performance characteristics determined by [facility]. It has not been cleared or approved by the FDA. The laboratory is regulated under CLIA as qualified to perform high-complexity testing. This test is used for clinical purposes. It should not be regarded as investigational or for research. Blood specimen (specimen) 01/17/2017 9:52 AM EDT 01/17/2017 10:05 AM EDT Narrative Resulting Agency Comment Spec In Lab Alexa Moyer APRN CHEMISTRY ORDERABLES [facility] [place] [address] documented in this encounter Visit Diagnoses Diagnosis Partial symptomatic epilepsy with complex partial seizures, not intractable, without status epilepticus High risk medication use Encounter for long-term (current) use of other medications Hypovitaminosis D Unspecified vitamin D deficiency documented in this encounter Care Teams Mortician Helper Relationship Specialty Start Date End Date David Templeton MD [address] [facility] [address] [place] [address] PCP - General 08/01/13 documented as of this encounter
--- OUTSIDE RECORDS SUMMARY | 2024-04-14 13:54 | XMS_ITS | Encounter Summary ---
Author Organization Replaced By [facility] [place] [address] Care Team Providers Care Bridge Mechanic Name Role Phone Angelia Crespo MD Primary Care Provider [phone] Encounter Details Date Type Department Care Team (Late st Contact Info) Description 11/05/2013 4:10 PM EST Follow-Up Cardiology at [address] [id number] Kerwin Frost MD [facility] [place] [address] LVH (left ventricular hypertrophy) (Primary Dx) Discharge Disposition: Home Social History [...] Sign Reading Time Taken Comments Blood Pressure 112/68 11/05/2013 3:58 PM EST Pulse 69 11/05/2013 3:58 PM EST Temperature - - Respiratory Rate - - Oxygen Saturation 96% 11/05/2013 3:58 PM EST Inhaled Oxygen Concentration - - Weight 115.7 kg (255 lb) 11/05/2013 3:58 PM EST Height 182.9 cm (6') 11/05/2013 3:58 PM EST Body Mass Index 34.58 11/05/2013 3:58 PM EST documented in this encounter Progress Notes * Kimani Tripathi II - 11/06/2013 7:[address] Frost's note cosigned by: Kimani Tripathi MD * Kerwin Frost - 11/05/2013 10:45 AM EST Cardiology Consultation Referring Physician: ANGELIA CRESPO MD Reason for Visit: Paroxysmal A-fib Problems/PMH: Paroxysmal A-fib - Diagnosis: 2004 - [id number] Score: 1 LVH with Asymmetric Septal Hypertrophy [...] base thickness with scar, LAE, LVEF 74%. HTN Hypothyroidism Seizure Disorder GENARO HPI: Mr. Mar is here for a scheduled followup. Since his last visit he has been doing well. His blood pressure has been stable at home. Denies any paroxysmal episodes of chest pain, palpitations, syncope, dizziness. He does not have a formal exercise program but otherwise is active and is able to perform all daily activities including walking up one flight of stairs without any chest pain, lightheadedness or shortness of breath. He recently completed an exercise stress test and did quite well findings are noted as above. Results of his workup including the renal duplex which was essentially normal was reviewed with himalong with a 24-hour urine studies which were also consistent with his hypertension. Review of Systems: General: No recent weight changes, no change in sleep/ appetite, no fevers/chills ENT: no tinnitus,vertigo,dizziness CVS: as in HPI PULM: no cough,wheeze GI: no N,V,D,hematochezia,melena BUSINESS INSIGHT AND ANALYTICS MANAGER: no syncope,focal weakness,paresthesias Current Outpatient Prescriptions on [...] and Diabetes in his mother. On exam: There were no vitals filed for this visit. General: Comfortable, NAD Neck: JVP 5 cm. CV: Regular rhythm, S1,S2, no gallop, no rub. Lungs: Clear bilaterally, no wheeze. Extremities: warm, no pedal edema BUSINESS INSIGHT AND ANALYTICS MANAGER: AOX3, grossly non-focal Assessment & Plan: In summary 38-year-old male with history of hypertension and LVH; more prominent in the anterior-septum base with subtle abnormality of scar pattern on cardiac MR. His degree of LVH is also in the intermediate range. It is reassuring that he does not have any high risk features like excessive hypertrophy, any history of personal syncope or any family history of sudden cardiac or any history of ventricular arrhythmias on more than one ambulatory telemetry recordings. We have not done any genetic testing at this point. I discussed with him the possibility of reviewing his case along with the available workup with an off site expert in hypertrophic cardiomyopathy and he did express interest and willingness to purse this. He does have 2 sons age 12 and 14 years one of them plays football and the other one is a wrestler.At at this point I have recommended that they followup with their physicians and obtain EKGs and hemaybe even echocardiograms, I did give him some recommendations about family members screening for hypertrophic cardiomyopathy especially in the light of their participation in the type of sports they are playing. I think clinically we do not need to do anything further at this time however he does need regular followup with an abnormal echocardiogram on an annual basis. He will followup in 3 months and I will try to review his case as noted above we will contact us ifhe has any symptoms prior to his next scheduled appointment. documented in this encounter Plan of Treatment Not on file documented as of this encounter Visit Diagnoses Diagnosis LVH (left ventricular hypertrophy)- Primary Cardiomegaly documented in this encounter Care Teams Bridge Mechanic Relationship Specialty Start Date End Date Angelia Crespo MD [address] [place] [address] [place] [address] PCP - General 08/01/13 documented as of this encounter
--- OUTSIDE RECORDS SUMMARY | 2024-04-14 13:54 | XMS_ITS | Encounter Summary ---
Author Organization [facility] [place] [address] Care Team Providers Care Operations Processor Name Role Phone David Templeton MD Primary Care Provider [phone] Encounter Details Date Type Department Care Team (Latest Contact Info) Description 08/15/2013 9:44 AM EST - 08/15/2013 11:59 PM EST Hospital Encounter Non-[place] [id number] CLINIC, Shashi Weaver MD [facility] [place] [address] Discharge Disposition: Home Social History Tobacco Use [...] on filedocumented in this encounter Care Teams Operations Processor Relationship Specialty Start Date End Date David Templeton MD [address] [facility] 1 [place] [address] PCP - General 08/01/13 documented as of this encounter
--- OUTSIDE RECORDS SUMMARY | 2024-04-14 13:54 | XMS_ITS | Encounter Summary ---
[place] [address] Care Team Providers Care Mems Process Engineer Name Role Phone David Templeton MD Primary Care Provider [phone] Encounter Details Date Type Department Care Team (Late st Contact Info) Description 12/06/2015 10:30 AM EDT [place] [phone] Alexa Moyer APRN [facility] [place] [address] Other generalized epilepsy, not intractable, without status epilepticus; High risk [...] Sign Reading Time Taken Comments Blood Pressure 127/81 12/06/2015 10:11 AM EDT Pulse 68 12/06/2015 10:11 AM EDT Temperature - - Respiratory Rate - - Oxygen Saturation - - Inhaled Oxygen Concentration - - Weight 128.1 kg (282 lb 6.4 oz) 03/14/2 016 10:11 AM EDT Height 182.9 cm (6') 12/06/2015 10:11 AM EDT Body Mass Index 38.3 12/06/2015 10:11 AM EDT documented in this encounter Progress Notes * Alexa Moyer, MID LEVEL PROJECT MANAGER - 12/06/2015 10:50 AM EDT Subjective: [facility] OUTPATIENT FOLLOW UP NOTE Patient [...] father's home with his sons. He is still in a relationship with a woman that he is happy with. He is tolerating his medications well. Cardiac issues are stable. No new medical issues. Social History: History Social History ??? Marital [...] file Social History Narrative Seizure Control: QEpilepsy 12/04/2015 Last seizure was: More than 1 year ago Number of seizures in past month: - Were seizures disabling? No Social Factors: QEPILEPSY SOCIAL FACTORS 12/04/2015 Employment status: No Currently driving: Yes Review of Systems: Review of systems 12/04/2015 1. double vision Never 2. headache Rarely 3. rash Rarely 4. unsteadiness Never 5. upset stomach, nausea, vomiting Rarely 6. troubles with gums or teeth Rarely 7. weight loss or gain Sometimes 8. tremors or shaking Never 9. restlessness Never 10. dizziness Never 11. tiredness/sleepiness Rarely 12. trouble sleeping Sometimes 13. difficulties concentrating Rarely 14. feelings of aggression Rarely 15. depression Sometimes 16. thoughts about ending your life Never 17. palpitations or chest pains Never 18. bladder problems Never 19. breathing problems Never Memory and concentration symptoms (QOLIE-31) QEPILEPSY QOLIE31 12/04/2015 Memory problems A little of the time [...] 1 - Not at all bothersome QOLIE-31 8.33 (low scores suggest severe memory symptoms) Depression Score (NDDI-E) QEPILEPSY DEPRESSION SCORE 12/04/2015 Depression Score 9 (scores >15 suggest Major Depression) Quality of Life QEPILEPSY QOL 12/04/2015 Quality of Life (10-Best Quality of Life; [...] mouth 2 times daily. 300mg/am 400mg/pm ??? Cholecalciferol, Vitamin D3, 5,000 unit Cap Take 10,000 Units by mouth daily. ??? DILTiazem (CARDIZEM CD) 180 mg 24 [...] Take 5 mg by mouth daily. No current facility-administered medications on file prior to visit. No Known Allergies Objective: Blood pressure 127/81, pulse 68, height 182.9 cm (6'), weight 128.096 kg (282 lb 6.4 oz). Awake, alert, EOMI, he has moderate gingival hypertrophy, no tremor, gait stable, no obvious rash, mood stable. Assessment and Plan: - Epilepsy: Having rare seizures and actually has been seizure free for the past several [...] relationship and seems happy. 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 - Patient counselled about sleep apnea. He is intermittently using his CPAP. We discussed the gingival hypertrophy. I encouraged him to floss regularly. - Prescriptions were renewed. - Patient will be seen again by the epilepsy team in 1 year. documented in this encounter Plan of Treatment Not on file documented as of this encounter Procedures Procedure Name Priority Date/Time Associated Diagnosis Comments HEMOGRAM Routine 12/06/2015 11:18 AM EDT High risk medication use PHENYTOIN LEVEL, TOTAL AND FREE Routine 12/06/2015 11:18 AM EDT Other generalized epilepsy, not intractable, without status epilepticus VITAMIN D, 25-HYDROXY Routine 12/06/2015 11:18 AM EDT Hypovitaminosis D COMPREHENSIVE METABOLIC PANEL (NON-FASTING) Routine 12/06/2015 11:18 AM EDT High risk medication use documented in this encounter Results * VIT D Total Evaluation (12/06/2015 11:18 AM EDT) 25-OH Vit D Total 84 30 - 100 ng/mL [facility] Comment: Deficient <10 ng/mL Insufficient 10 to 29 ng/mL Sufficient 30 to 100 ng/mL Potential Intoxication >100 ng/mL According to the [place] National Osteoporosis Foundation, Vitamin D concentrations >30 ng/mL are sufficient to protect bone health. ??The National Kidney Foundation has similarly stated that patients with Vitamin D concentrations <30ng/mL should be considered to be insufficient or deficient. http://Vitriflex/[facility]natlkidneyfoundation http://Vitriflex/DHMCVitD The [employer] i[employer] Vitamin D Immunoassay detects both 25-OH Vitamin D2 and 25-OH Vitamin D3, but only a total Vitamin D concentration is reported. Blood specimen (specimen) 12/06/2015 11:18 AM EDT 12/06/2015 11:30 AM EDT Narrative Resulting Agency Comment Spec In Lab Annie Soto MD CHEMISTRY ORDERABLES [facility] [place] [address] * (ABNORMAL) Hemogram (12/06/2015 11:18 AM EDT) WBC 5.5 4.0 - 10.0 x10(3)/mcL [facility] RBC 4.71 4.63 - 6.08 x10(6)/[facility] Hemoglobin 16.0 13.7 - 17.5 gm/dL [facility] Hematocrit 44.0 40.0 - 51.0 % [facility] MCV 93.4(H) 79.0 - 92.0 fL [facility] MCH 34.0(H) 25.6 - 32.2 pg [facility] MCHC 36.4 32.0 - 36.5 gm/dL [facility] Platelets 237 145 - 370 x10(3)/[facility] RDWSD 44.6 35.0 - 46.0 fL [facility] RDWCV 13.0 10.9 - 14.4 % [facility] MPV 9.6 9.0 - 12.0 fL [facility] Blood specimen (specimen) 12/06/2015 11:18 AM EDT 12/06/2015 11:30 AM EDT Narrative Resulting Agency Comment Spec In Lab Annie Soto MD HEMATOLOGY ORDERABLE S [facility] [place] [address] * (ABNORMAL) Comprehensive metabolic panel (non-fasting) (12/06/2015 11:18 AM EDT) Glucose Lvl 92 65 - 199 mg/dL [facility] Comment:Diabetes: >=200 mg/d L plus symptoms BUN 11 10 - 20 mg/dL [facility] Creatinine 0.79(L) 0.80 - 1.50 mg/dL [facility] Comment: Please note that the pediatric reference intervals supplied above were not validated at [facility]. Results from pediatric patients should be interpreted in conjunction to the patient's age, height and muscle mass. Sodium 139 135 - 145 mmol/L [facility] Potassium 4.2 3.5 - 5.0 mmol/L [facility] Comment: Please note: ??Patients with WBC >100,000 may have falsely elevated Potassium levels. ??For accurate Potassium quantification in these patients send serum separator tube (gold top) for subsequent determinations. ??Contact the Clinical Chemistry Laboratory if there are any questions. Chloride 100 98 - 107 mmol/L [facility] CO2 25 22 - 31 mmol/L [facility] Anion Gap 14 5 - 15 mmol/L [facility] Calcium 9.2 8.5 - 10.5 mg/dL [facility] Total Protein 7.3 6.1 - 8.0 gm/dL [facility] Albumin 4.2 3.2 - 5.2 gm/dL [facility] AST 19 0 - 39 unit/L [facility] ALT 25 0 - 55 unit/L [facility] Alk Phos 125(H) 40 - 120 unit/L [facility] Total Bilirubin 0.2 0.2 - 1.3 mg/dL [facility] Bili, Direct 0.1 0.0 - 0.3 mg/dL [facility] Estimated GFR >60 >=60 [facility] Comment: This estimated GFR [...] the following links into your internet browser. http://Vitriflex/DHnkdep http://Vitriflex/DHMCnkf Blood specimen (specimen) 12/06/2015 11:18 AM EDT 12/06/2015 11:30 AM EDT Narrative Resulting Agency Comment Spec In Lab Annie Soto MD CHEMISTRY ORDERABLES [facility] [place] [address] * (ABNORMAL) Phenytoin level, total and free (12/06/2015 11:18 AM EDT) Phenytoin Lvl 23.5(H) 10.0 - 20.0 mg/L [facility] Comment: Theraputic range: ??10-20 mg/L Toxic: ??> 25 mg/L Patients with renal dysfunction (e.g.creatinine clearance < 30 mls/min) may show falsely elevated results due to accumulation of metabolites in renal failure Phenytoin, Free 1.81 1.00 - 2.00 mg/L [facility] Comment: Therapeutic range: ? Free phenytoin: ??1.00-2.00 mg/L ? % Free phenytoin: ??8-12% Toxic range: ? Free phenytoin: ??>3.00 mg/L This test was developed and its performance characteristics determined by [facility]. It has not been cleared or approved by the FDA. The laboratory is regulated under CLIA as qualified to perform high-complexity testing. This test is used for clinical purposes. It should not be regarded as investigational or for research. Phenytoin Free% 8 8 - 12 % [facility] Comment: This test was developed and its performance characteristics determined by [facility]. It has not been cleared or approved by the FDA. The laboratory is regulated under CLIA as qualified to perform high-complexity testing. This test is used for clinical purposes. It should not be regarded as investigational or for research. Blood specimen (specimen) 12/06/2015 11:18 AM EDT 12/06/2015 11:30 AM EDT Narrative Resulting Agency Comment Spec In Lab Annie Soto MD CHEMISTRY ORDERABLES [facility] [place] [address] documented in this encounter Visit Diagnoses Diagnosis Other generalized epilepsy, not intractable, without status epilepticus High risk medication use Encounter for long-term (current) use of other medications Hypovitaminosis D Unspecified vitamin D deficiency documented in this encounter Care Teams Mems Process Engineer Relationship Specialty Start Date End Date David Templeton MD [address] [place] [address] PCP - General 08/01/13 documented as of this encounter
--- OUTSIDE RECORDS SUMMARY | 2024-04-14 13:54 | XMS_ITS | Encounter Summary ---
[place] [address] Care Team Providers Care Shipwright Supervisor Name Role Phone Debbie Dukes MD Primary Care Provider [phone] Encounter Details Date Type Department Care Team (Late st Contact Info) Description 12/17/2012 4:45 PM EDT [place] [phone] Alexa Moyer APRN [facility] [place] [address] Epilepsy (Primary Dx); High risk medication use Discharge Disposition: Home [...] Sign Reading Time Taken Comments Blood Pressure 122/77 12/17/2012 4:49 PM EDT Pulse 70 12/17/2012 4:49 PM EDT Temperature - - Respiratory Rate - - Oxygen Saturation - - Inhaled Oxygen Concentration - - Weight 116 kg (255 lb 12.8 oz) 12/17/2012 4:49 P M EDT Height 182.9 cm (6') 12/17/2012 4:49 PM EDT repo rted Body Mass Index 34.69 12/17/2012 4:49 PM EDT documented in this encounter Progress Notes * Alexa Moyer APRN - 12/17/2012 5:02 PM EDT HPI: Cole returns for a scheduled follow up visit. He came to the office alone. Unfortunately, he has had several seizures since our last visit. He had one at work. He felt an aura of a feeling in his nose as if he needed to sneeze then fell and hit his head requiring multiple sutures. He saw his PCP a few weeks later and he was cleared to go back to work. He apparently had another smaller seizure at home 2 week ago and he was kept out of work until coming to see us. He has had no further spells. He reports that his PCP did blood levels and they were in the low therapeutic range. He can think of no triggers for the recent bout of seizures. He is not taking generic phenytoin. He is compliant with his medications. ROS: positive for insomnia with difficultly falling asleep. He takes an occasional Tylenol PM whichhelps. Denies headache or double vision. Denies rash, dizziness, balance issues. Feels depressed attimes. He recently started tapering zoloft because he does not believe it is helping. Outpatient Prescriptions Marked as Taking for the 12/17/12 encounter (Office Visit) with Alexa Moyer, ZAY Medication Sig Dispense Refill ??? Cholecalciferol, Vitamin D3, 5,000 unit Cap Take 10,000 Units by mouth daily. ??? lamoTRIgine (LAMICTAL) 200 mg tablet Take 1 in AM and 1.5 in PM Indications: Epilepsy 75 tablet5 ? ? phenytoin (DILANTIN) 100 mg ER capsule Take 1 cap in am & 2 cap in pm on daily basis 90 tablet 1 ??? sertraline (ZOLOFT) 50 mg tablet Take 50 mg by mouth daily. ??? sildenafil (VIAGRA) 100 [...] Take 200 mcg by mouth daily. ??? lisinopril (PRINIVIL;ZESTRIL) 5 mg tablet Take 5 mg by mouth daily. Objective: Physical Exam Blood pressure 122/77, pulse 70, height 182.9 cm (6'), weight 116.03 kg (255 lb 12.8 oz). Constitutional: He is oriented to person, place, and time and well-developed, well-nourished, and in no distress. Eyes: EOM are normal. One beat of nystagmus on right lateral gaze. Neurological: He is oriented to person, place, and time. Gait Test. Gait normal. Skin: No rash noted. Psychiatric: Mood normal. Laboratory Studies: I am checking CBC, LFTs, and AED levels Assessment and Plan: Cole is having some additional seizures with an unclear etiology. He had one at work and now is having trouble getting back to work as they are fearful about him getting injured. I have asked him toincrease his dose of lamictal to 200mg in AM and 300mg in PM and we will check levels in 5 weeks aswell as today. No change with dilantin at this time. 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 It was very odd for him to have one at work during daytime hours. If he has any more will need to reconsider his medications and surgical options. He will return in 3 months for follow up. documented in this encounter Plan of Treatment Not on file documented as of this encounter Procedures Procedure Name Priority Date/Time Associated Diagnosis Comments LAMOTRIGINE LVL Routine 12/17/2012 5:40 PM EDT Epilepsy HEMOGRAM Routine 12/17/2012 5:40 PM EDT High risk medication use PHENYTOIN LEVEL, TOTAL AND FREE Routine 12/17/2012 5:40 PM EDT Epilepsy HEPATIC FUNCTION PANEL Routine 12/17/2012 5:40 PM EDT High risk medication use documented in this encounter Results * Hepatic Function Panel (12/17/2012 5:40 PM EDT) Total Protein 7.4 6.4 - 8.3 gm/dL [facility] Albumin 4.4 3.2 - 5.2 gm/dL [facility] AST 25 0 - 39 unit/L [facility] ALT 49 0 - 55 unit/L [facility] Alk Phos 108 40 - 120 unit/L [facility] Total Bilirubin 0.2 0.2 - 1.3 mg/dL [facility] Bili, Direct 0.1 0.0 - 0.3 mg/dL [facility] Blood specimen (specimen) 12/17/2012 5:40 PM EDT 12/17/2012 5:46 PM EDT Narrative Resulting Agency Comment Spec In Lab Annie Soto MD CHEMISTRY ORDERABLES [facility] * (ABNORMAL) Hemogram (12/17/2012 5:40 PM EDT) WBC 5.9 4.0 - 10.0 x10(3)/mcL [facility] RBC 4.86 4.63 - 6.08 x10(6)/mcL [facility] Hemoglobin 16.6 13.7 - 17.5 gm/dL [facility] Hematocrit 47.2 40.0 - 51.0 % [facility] MCV 97.1(H) 79.0 - 92.0 fL [facility] MCH 34.2(H) 25.6 - 32.2 pg [facility] MCHC 35.2 32.0 - 36.5 gm/dL [facility] Platelets 246 145 - 370 x10(3)/mcL [facility] RDWSD 46.4(H) 35.0 - 46.[address] [address] [facility] RDWCV 13.1 10.9 - 14.4 % [facility] MPV 9.7 9.0 - 12.0 fL [facility] Blood specimen (specimen) 12/17/2012 5:40 PM EDT 12/17/2012 5:46 PM EDT Narrative Resulting Agency Comment Spec In Lab Annie Soto MD HEMATOLOGY ORDERABLE S Performing Organization Address City/[facility] Co de Phone Number [facility] * Phenytoin level, total and free (12/17/2012 5:40 PM EDT) Phenytoin Lvl 17.0 10.0 - 20.0 mg/L [facility] Comment: Theraputic range: ??10-20 mg/L Toxic: ??> 25 mg/L Patients with renal dysfunction (e.g.creatinine clearance < 30 mls/min) may show falsely elevated results due to accumulation of metabolites in renal failure Phenytoin, Free 1.37 1.00 - 2.00 mg/L [facility] Comment: Therapeutic range: ? Free phenytoin: ??1.00-2.00 mg/L ? % Free phenytoin: ??8-12% Toxic range: ? Free phenytoin: ??>3.00 mg/L Phenytoin Free% 8 8 - 12 % [facility] Blood specimen (specimen) 12/17/2012 5:40 PM EDT 12/17/2012 5:45 PM EDT Narrative Resulting Agency Comment Spec In Lab Annie Soto MD CHEMISTRY ORDERABLES Performing Organization Address City/[facility] de Phone Number [facility] * Lamotrigine Lvl (12/17/2012 5:40 PM EDT) Lamotrigine Lvl 1.1 2.5 - 15.0 mcg/mL [facility] Comment: Test Performed by: [address] [address] Innovation Manager: Venancio Davies III, M.D. Blood specimen (specimen) 12/17/2012 5:40 PM EDT 12/17/2012 7:02 PM EDT Narrative Resulting Agency Comment Spec In Lab Annie Soto MD CHEMISTRY ORDERABLES Performing Organization Address City/State/[facility] [place] Phone Number [facility] documented in this encounter Visit Diagnoses Diagnosis Epilepsy- Primary Unspecified epilepsy without mention of intractable epilepsy High risk medication use Encounter for long-term (current) use of other medications documented in this encounter Care Teams Shipwright Supervisor Relationship Specialty Start Date End Date Debbie Dukes MD [address] [place] [address] PCP - General 09/20/11 07/31/13 documented as of this encounter
--- OUTSIDE RECORDS SUMMARY | 2024-04-14 13:54 | XMS_ITS | Encounter Summary ---
Author Organization [facility] [place] [address] Care Team Providers Care Licensed Retail Supervisor Name Role Phone Angelia Templeton MD Primary Care Provider [phone] Encounter Details Date Type Department Care Team (Late st Contact Info) Description 08/06/2013 10:00 AM EST Office Visit Cardiology at [address] [phone] Shashi Marie MD [facility] [place] [address] PAF (paroxysmal atrial fibrillation) (Primary Dx) Discharge Disposition: Home Social History [...] Sign Reading Time Taken Comments Blood Pressure 110/76 08/06/2013 9:15 AM EST Pulse 64 08/06/2013 9:15 AM EST Temperature - - Respiratory Rate - - Oxygen Saturation 97% 08/06/2013 9:15 AM EST Inhaled Oxygen Concentration - - Weight 118.8 kg (262 lb) 08/06/2013 9:15 AM EST Height 203.2 cm (6' 8) 08/06/2013 9:15 AM EST Body Mass Index 28.78 08/06/2013 9:15 AM EST documented in this encounter Progress Notes * Shashi Marie MD - 08/07/2013 11:39 AM EST I have interviewed and examined this patient, reviewed our findings and recommendations with them and I agree with Dr. Frost's note. He has hypertrophy with the thickest area in his proximal septum measured at 1.5 mm by MRI and thicker by echo. The hypertrophy seems out of proportion to his hypertension which is under excellent control. We are obtaining some more data to exclude secondary causes of hypertension. * Kerwin Frost - 08/06/2013 10:04 AM EST Cardiology Consultation Referring Physician: ANGELIA TEMPLETON MD Reason for Visit: Paroxysmal A-fib Problems/PMH: Paroxysmal A-fib - Diagnosis: 2003 - [id number] Score: 1 LVH with Asymmetric Septal Hypertrophy - Echo: concentric LVH,IVS 2.0 cm, no LVOT gradient, LVEF 70%, no hemodynamically significant valvedisease. - CMR: concentric LVH 1.3 to 1.5 cm with focal anteroseptum base thickness with scar, LAE, LVEF 74%. HTN Hypothyroidism Seizure Disorder GENARO HPI: Patient who has previously been seen in cardiology clinic, is here to re establish care. He has been followed off and on since 2003. He has been feeling well since last office visit until last few weeks, felt some fatigue, but no CP/palpitations/dyspnea. Tolerating his meds and taking them regularly. Review of Systems: General: No recent weight changes, no change in sleep/ appetite, no fevers/chills ENT: no tinnitus,vertigo,dizziness CVS: as in HPI PULM: no cough,wheeze GI: no N,V,D,hematochezia,melena COUNTER SERVER: no syncope,focal weakness,paresthesias Current Outpatient Prescriptions on File Prior to Visit Medication Sig Dispense Refill ? ? phenytoin (DILANTIN) 100 mg ER capsule Take 1 cap in am & 2 cap in pm on daily basis 90 tablet 5 ??? Cholecalciferol, Vitamin D3, 5,000 unit Cap [...] in his mother. On exam: Filed Vitals: 08/06/13 0915 BP: 110/76 Pulse: 64 Height: 203.2 cm (6' 8) Weight: 118.842 kg (262 lb) SpO2: 97% General: Comfortable, NAD Neck: JVP 5 cm. CV: Regular rhythm, S1,S2, no gallop, no rub. Lungs: Clear bilaterally, no wheeze. Extremities: warm, no pedal edema COUNTER SERVER: AOX3, grossly non-focal Assessment: He has been diagnosed with HTN at a young age with no identifiable secondary etiology however unclear as to the extent of that evaluation. He also has PAF since 2003, doing well with a rate control strategy and ASA for anticoagulation no evidence of thromboembolic events. He has been known to have LVH since 2003 by echo he has concentric LVH with a anterior septum base.His CMR demonstrated concentric LVH with a focal prominence at base of anterior septum. He also hasmild fibrosis in that area. He also is on 4 antihypertensives including a diuertic and that may explain the LVH but somewhat atypical to have a fibrosis pattern. He has had syncope however that seemsto be consistently preceded by an aura and as per patient is pretty reliably explained by his seizure disorder. He does not have all features of a obstructive cardiomyopathy but he may still have HCMwith a non-obstructive subset. Fortunately, he does not have any high risk features of SCD (LVH >30mm, FH of 1st degree relative with SCD, unexplained syncope or NSVT despite holter monitoring). Ithink he needs further evaluation and continued clinical follow up in he interim. Plan: 1. Atrial Fibrillation: he is doing well, A-fib burden is low, minimal symptoms and adequate anticoagulation. Will continue to follow. 2. Would like to get further evaluation for secondary causes of HTN, r/o RODDY and pheochromocytoma. Will obtain renal artery duplex, and 24 hour urine meta-nephrines. 3. Will repeat echo with exercise for any provoked gradient across LVOT. May consider genetic counseling for genetic testing. Recommend screening with for his 2 children aged 12 and 14 years. 4. Follow up after above work up. documented in this encounter Plan of Treatment Not on file documented as of this encounter Procedures Procedure Name Priority Date/Time Associated Diagnosis Comments EKG 12-LEAD Routine 08/06/2013 9:33 AM EST PAF (paroxysmal atrial fibrillation) documented in this encounter Results * Echocardiogram Stress (Treadmill) (08/15/2013 12:24 PM EST) EF 65 HEARTLAB SYSTEM Anatomical Region Laterality Modality Other 08/15/2013 Narrative 08/15/2013 1:19 PM EST Procedure: ? Stress Echocardiogram Patient: ? ERENN COLE L ?(Age): 1975(37) Med Rec#: ?[id number] ? Sex: ?M ? [place] [place] Ht / Wt: ??183(cm)/114(kg) Pt. Loc: ? Echo Lab ? BSA: ?2.35 Study Date: ?08/15/2013 ? Pt. Type: Outpatient Tape: ? Referring: Shashi Marie Certified Fire Investigator: Mavis Carrington Certified Fire Investigator: Angelia Cui Certified Fire Investigator: MARYURI Director Women: Melvin Morgan Diagnosis:CPT Code(s): ??ECG Interpretation (48182), ??Stress Echo (06444), ??Color Doppler (38944), ??Optison (14254MK), ??Doppler LTD (02974), Indication(s):Medication(s): ?? Rhythm: Sinus Stage ?HR ?BP [...] ?Normal ?Normal ? Mid-Inferoseptal ?Normal ?Normal ? Rayne-Septal ? Normal ?Normal ? Rayne-Anterior ? Normal ?Normal ? Rayne-Lateral ?Normal ?Normal ? Rayne-Inferior ? Normal ?Normal ? Rayne-Tip ?Normal ?Normal ? This report has been electronically signed by: Wendi Yanez MD ? 08/15/2013 13:19:08 Images reviewed and interpretation verified [facility] Cardiac Ultrasound Laboratory Procedure Note Wendi Yanez MD - 08/15/2013 Procedure: Stress Echocardiogram Patient: YESY Meng (Age): 1975(37) Med Rec#: [id number] Sex: M [place] Loc[place] [facility] [place] Ht / Wt: 183(cm)/114(kg) Pt. Loc: Echo Lab BSA: 2.35 Study Date: 08/15/2013 Pt. Type: Outpatient Tape: Referring: Shashi Marie Certified Fire Investigator: Mavis Carrington Certified Fire Investigator: Angelia Cui Certified Fire Investigator: MARYURI Director Women: Melvin Morgan Diagnosis:CPT Code(s): ECG Interpretation (18674), Stress Echo (64689), Color Doppler (91082), Optison (79636LC), Doppler LTD (23606), Indication(s):Medication(s): Rhythm: Sinus Stage HR BP Rest [...] The patient is taking a beta edel. [facility] [place] Other echo and stress findings as noted [...] Normal Mid-Inferior Normal Normal Mid-Inferoseptal Normal Normal Rayne-Septal Normal Normal Rayne-Anterior Normal Normal Rayne-Lateral Normal Normal Rayne-Inferior Normal Normal Rayne-Tip Normal Normal This report has been electronically signed by: Wendi Yanez MD 08/15/2013 13:19:08 Images reviewed and interpretation verified [facility] Cardiac Ultrasound Laboratory Shashi Marie MD ECHO ORDERABLES * Duplex Study Renal Arteries, Bilat (08/15/2013 8:58 AM EST) VB Text Report Department: Vascular Surgery Lab Patient: [id number] (COLE MAR) CPT Code: 95696 ICD-9: 401.9 Referring Physician: SHSAHI MARIE Indication: ??Hypertension ICD9 Diagnosis Code: 401.9 Findings: Naz Renal Aorta ? PSV (cm/s): 107 ? EDV (cm/s): 16 ? RI: 0.85 Renal Artery Proximal, Right ? PSV (cm/s): 66 ? EDV (cm/s): 24 ? RAR-LA: 0.6 ? RI: 0.63 Renal Artery Mid, Right ? PSV (cm/s): 81 ? EDV (cm/s): 33 ? RAR-LA: 0.8 ? RI: 0.59 Renal Artery Distal, Right ? PSV (cm/s): 89 ? EDV (cm/s): 41 ? RAR-LA: 0.8 ? RI: 0.53 Upper Pole Renal [...] (cm/s): 111 ? EDV (cm/s): 42 ? RAR-LA: 1.0 ? RI: 0.62 Renal Artery Mid, Left ? PSV (cm/s): 109 ? EDV (cm/s): 36 ? RAR-LA: 1.0 ? RI: 0.67 Renal Artery Distal, Left ? PSV (cm/s): 70 ? EDV (cm/s): 23 ? RAR-LA: 0.7 ? RI: 0.67 Upper Pole Renal [...] EST Shashi Marie MD VASCULAR ORDERABLES VASCUBASE * (ABNORMAL) Metanephrines, Fractionated, urine, 24 hour (08/15/2013 6:00 AM EST) U24 Metanephrines ,Frac Test ?Result ??Flag ??Unit ?RefValue Metanephrines, Fractionated, 24h, U ??Metanephrine, U ? 220 ? mcg/24 h -- REFERENCE VALUE -- 44-261 (Normotensive) <400 (Hypertensive) ??Normetanephrin e, U ?997 ?H ?mcg/24 h -- REFERENCE VALUE -- 111-419 (Normotensive) <900 (Hypertensive) ??Total Metanephrines, U ?1217 ?mcg/24 h -- REFERENCE VALUE -- 200-614 (Normotensive) <1300 (Hypertensive) ??Collection Duration ? 24 ?h ??Urine Volume ?1850 ?mL Test Performed by: [address] [address] Hotbed Operator: Venancio Davies III, M.D.(A) [facility] Urine specimen (specimen) 08/15/2013 6:00 AM EST 08/15/2013 11:40 AM EST Narrative Resulting Agency Comment Spec In Lab Shashi Marie MD URINE ORDERABLES [facility] * EKG 12 Lead (08/06/2013 9:33 AM EST) Ventricular rate 63 BPM MUSE SYSTEM Atrial Rate 63 BPM MUSE SYSTEM P-R Interval 136 ms MUSE SYSTEM QRS Duration 106 ms MUSE SYSTEM Q-T Interval 388 ms MUSE SYSTEM QTC Calculated (Bezet) 397 ms MUSE SYSTEM Calculated P Jefferson 23 degrees MUSE SYSTEM Calculated R Jefferson 34 degrees MUSE SYSTEM Calculated T Jefferson 41 degrees MUSE SYSTEM INTERPRETATION Normal sinus rhythm Normal ECG When compared with ECG of 15-AUG-2011 13:26, No significant change was found Confirmed by MD CYNTHIA, SHASHI ([id number]) on 08/06/2013 11:06:37 PM MUSE SYSTEM 08/06/2013 9:33 AM EST 08/06/2013 11:06 PM EST Shashi Marie MD ECG ORDERABLES MUSE SYSTEM documented in this encounter Visit Diagnoses Diagnosis PAF (paroxysmal atrial fibrillation)- Primary Atrial fibrillation PAF (paroxysmal atrial fibrillation) Atrial fibrillation documented in this encounter Care Teams Licensed Retail Supervisor Relationship Specialty Start Date End Date Angelia Templeton MD [address] [place] [address] PCP - General 08/01/13 documented as of this encounter
--- OUTSIDE RECORDS SUMMARY | 2024-04-14 13:54 | XMS_ITS | Clinical Summary ---
Author Organization [facility] [place] [address] Care Team Providers Care Sweater Operator Name Role Phone David Templeton MD Primary Care Provider [phone] Allergies No known active allergies Medications Medication Sig Dispensed Refills Start Date End Date Status lisinopril (PRINIVIL;ZESTRIL) 5 mg tablet Take 5 mg by mouth daily. Active aspirin (ENTERIC COATED ASPIRIN) 325 mg EC tablet Take 1 tablet by mouth daily. 30 tablet 3 08/05/2011 Active levothyroxine (SYNTHROID) 200 mcg tabletIndications: adjunct to surgery or radiotherapy for thyroid carcinoma Take 200 mcg by mouth daily. Takes with 50mcg Indications: ADJUNCT TO SURGERY OR RADIOTHERAPY FOR THYROID CARCINOMA Active hydrochlorothiazid e (HYDRODIURIL) 12.5 mg tablet Take 12.5 mg by mouth daily. Active metoprolol succinate (TOPROL-XL) 100 mg XL tabletIndications: Atrial fibrillation Take 1 tablet by mouth daily. 90 tablet 3 01/15/2012 Active DILTiazem (CARDIZEM CD) 180 mg 24 hr capsuleIndications :Atrial fibrillation Take 1 capsule by mouth 2 times daily. 180 capsule 3 03/20/2012 Active lamoTRIgine (LAMICTAL) 100 mg tablet Take by mouth 2 times daily. 300mg/am 400mg/pm Active phenytoin (DILANTIN) 100 mg ER capsuleIndications :Epilepsy Take 1 cap in am & 2 cap in pm on daily basis 90 tablet 5 02/09/2014 Active levothyroxine (SYNTHROID) 50 mcg Tablet Take 50 mcg by mouth daily. Takes with the 200mcg to = 250mcg Active ranitidine (ZANTAC) 150 mg Tablet TAKE ONE TABLET BY MOUTH TWICE A DAY 4 01/13/2017 Active aspirin 325 mg Tablet TAKE ONE TABLET BY MOUTH EVERY DAY 4 01/02/2017 Active Active Problems Problem Noted Date Diagnosed Date Lower urinary tract symptoms 02/16/2015 Nocturia 02/16/2015 Obesity 08/04/2011 Atrial fibrillation with rapid ventricular respo nse 08/01/2011 Overview (08/16/2011): New Paroxysmal AFib, rapid VR when in afib Normal LV function EF= 70% Thickened Septum, ? HOCM On diltiazem drip-->Diltiazem Intermittent afib/sinus History of hypothyroidism, on replacement, normal TSH Sinus rhythm - 12 lead EKG 08/15/2011 Possible Hypertrophic cardiomyopathy 05/09/2010 Overview (06/23/2012): History of HTN HCM, non obstructive, EF~ 65=75% Echo 2004 Septal hypertrophy with WEST Echo 2005 Septal hypertrophy with obstruction at rest or exertion, no ischemia Grandfather of heart condition mid 50s 2 children, healthy, no work up Hypothyroidism 05/09/2010 CIS - possible obstructive sleep apnea 0 seizure disorder 05/09/2010 Overview (08/04/2011): Long standing Followed by Neurology MRI- IMPRESSION: Several small foci of T2 hyperintensity in the deep white matter of the brain several of which are periventricular in location. Differential includes prior injury, demyelination, as well as possibly ischemic injury. Correlate with clinical symptoms. No evidence of mesiotemporal sclerosis. When compared with the previous study, there is no appreciable change. Family History Medical History Relation Comments Cerebrovascular Accident Mother Diabetes Mother Relation Status Comments Father Alive Mother Alive Social History Tobacco Use Types Packs/Day Years Used Date Smoking Tobacco: Never Smokeless Tobacco: Never Alcohol Use Standard Drinks/Week Comments Yes 0 (1 standard drink = 0.6 oz pur e alcohol) seldom Sex and Gender Information Value Date Recorded Sex Assigned at Not on file Gender Identity Not on file Sexual Orientation Not on file Last Filed Vital Signs Vital Sign Reading Time Taken Comments Blood Pressure 132/80 01/17/2017 8:53 AM EDT Pulse 66 01/17/2017 8:53 AM EDT Temperature 36.4 ??C (97.5 ??F) 08/05/2011 8:26 AM ES T Respiratory Rate 16 08/16/2011 1:39 PM EST Oxygen Saturation 97% 02/16/2015 10: 14 AM EDT Inhaled Oxygen Concentration - - Weight 124.2 kg (273 lb 12.8 oz) 01/17/2017 8:53 AM EDT Height 182.9 cm (6') 01/17/2017 8:53 AM EDT repo rted Body Mass Index 37.13 01/17/2017 8:53 AM EDT Plan of Treatment Health Maintenance Due Date Last Done Comments CT Colonography 1975 Colonoscopy 1975 Colorectal Cancer Screening 1975 FIT DNA 1975 FIT 1975 Sigmoidoscopy (10 year) with FIT yearly 1975 Sigmoidoscopy 1974 HIV screen 1992 Hepatitis C Screening 1992 Hepatitis B vaccine (0-59 yrs) (1) 1993 Tdap adult 1993 Tetanus vaccine 1993 Lipid Screening 08/02/2016 08/02/2011 Covid-19 Vaccine (1 - 2022-24 season) 2023 Influenza (Flu) vaccine (1 o f 1 - Influenza standard series) 05/25/2024 Procedures Procedure Name Priority Date/Time Associated Diagnosis Comments LIPID PANEL (REFLEX DIRECT LDL) STAT 08/02/2011 5:33 AM EST from Last 3 Months or Most Recently Relevant to Health Maintenance Results * LIPID PANEL (FASTING) (08/02/2011 5:33 AM EST) Chol, Total 148 <=199 mg/dL [facility] Comment: Recommendations of the NCEP Adult Treatment Panel for the following risk cutoff thresholds for the [place] population: Desirable: <200 mg/dL Borderline High: 200-239 mg/dL High: > or = 240 mg/dL Triglycerides 73 <=149 mg/dL [facility] Comment: Reference Range: Normal triglycerides: ??<150 mg/dL Borderline high: ??150-199 mg/dL High: ??200-499 mg/dL Very high: ??>qi=414 mg/dL TOM 2001; 285(19):9612-4417 HDL 48 >=40 mg/dL [facility] Comment: Reference range: ??Low HDL: ?? < 40 mg/dL ??Normal: ?40-60 mg/dL ??Desirable: > 60 mg/dL TOM 2001; 285(19):0217-2184 LDL Cholesterol 85 <=99 mg/dL [facility] Comment: Reference range: ?? Optimal: ?<100 mg/dL ?? Near Optimal/Above Optimal: ?? 100-129 mg/dL ?? Borderline high: ?130-159 mg/dL ?? High: ? 160-189 mg/dL ?? Very high: ?>br=460 mg/dL TOM 2001: 285(19):1885-5740 Chol/HDL Ratio 3.1 ratio [facility] Comment: A Cholesterol to HDL ratio below 4:1 is desirable. ??Studies suggest that increased CAD risk occurs at ratios above 5 for females and above 6 for men. ? [place] Heart Association ??(http://www.americanheart.org) ? [place] Int Med, 1994; 121:641 ? AM J Med, 1998; 105(1A):48S Blood specimen (specimen) 08/02/2011 5:33 AM EST 08/02/2011 6:06 AM EST Jonathon Kaminski MD CHEMISTRY ORDERABLES [facility] from Last 3 Months or Most Recently Relevant to Health Maintenance Advance Directives * Full Code (Latest Code Status on File) Date Activated Date Inactivated Comments 08/03/2011 8:10 AM 08/05/2011 3:19 PM Question Answer Comments Order Status: Initial Order Does patient have decision m aking capacity? Yes, Order is based on Patients wishes. * Full Code Date Activated Date Inactivated Comments 08/01/2011 8:53 PM 08/03/2011 8:10 AM Question Answer Comments Order Status: Initial Order Does patient have decision m aking capacity? Yes, Order is based on Patients wishes. Care Teams Sweater Operator Relationship Specialty Start Date End Date David Templeton MD [address] [place] [address] [address] [place] [address] PCP - General 08/01/13
--- OUTSIDE RECORDS SUMMARY | 2024-04-14 13:54 | XMS_ITS | Encounter Summary ---
Author Organization [facility] [address] Care Team Providers Care Business Planner Name Role Phone David Templeton MD Primary Care Provider [phone] Encounter Details Date Type Department Care Team (Latest Contact Info) Description 01/01/2014 1:56 PM EDT - 01/01/2014 11:59 PM EDT Hospital [place] [phone] Raffy Kauffman MD [facility] PEDIATRIC [place] [address] Possible Hypertrophic cardiomyopathy Discharge Disposition: Home Social History Tobacco Use [...] tablet Take 5 mg by mouth daily. LORazepam (ATIVAN) 1 mg tablet Take 1 mg by mouth 2 times daily. 12/10/2014 phenytoin (DILANTIN) 100 mg ER capsuleIndications:Ep ilepsy Take 1 cap in am & 2 cap in pm on daily basis 90 tablet 5 08/11/2013 02/09/2014 sildenafil (VIAGRA) 100 mg tablet Take 100 mg by mouth as needed. 02/16/2015 documented as of this encounter Plan of Treatment Not on file documented as of this encounter Procedures Procedure Name Priority Date/Time Associated Diagnosis Comments [facility] Routine 01/01/2014 2:20 PM EDT Possible Hypertrophic cardiomyopathy [facility] [place] SENDOUT Routine 01/01/2014 2:15 PM EDT documented in this encounter Results * Miscellaneous Lab request (01/01/2014 2:20 PM EDT) [facility] Lab Result Request received in lab. [facility] Blood specimen (specimen) 01/01/2014 2:20 PM EDT 01/01/2014 2:39 PM EDT Raffy Kauffman MD HEMATOLOGY ORDERAB LES [facility] [place] [facility] [place] (01/01/2014 2:15 PM EDT) [facility] Sendout See Note [facility] Comment: The ordered test is: ??HCM Panel (18 Genes) Laboratory for Molecular [facility], [address] [facility] [address]. The test result is: Please see scanned report in Chart Review under the Non-DH Laboratory Heading. Specimen of unknown material (specimen) 01/01/2014 2:15 PM EDT 01/01/2014 3:03 PM EDT Raffy Kauffman MD CHEMISTRY ORDERABL ES [facility] documented in this encounter Visit Diagnoses Diagnosis Possible Hypertrophic cardiomyopathy Other hypertrophic cardiomyopathy documented in this encounter Care Teams Business Planner Relationship Specialty Start Date End Date David Templeton MD [address] [place] [address] PCP - General 08/01/13 documented as of this encounter
--- OUTSIDE RECORDS SUMMARY | 2024-04-14 13:54 | XMS_ITS | Encounter Summary ---
Author Organization [facility] Address [address] [place] [address] Care Team Providers Care Asset Protection Professional Name Role Phone Unavailable Primary Care Provider Unavailabl e Encounter Details Date Type Department Care Team (Late st Contact Info) Description 11/22/2001 Results Only [facility] [address] [place] [address] Diallo Galeana MD [address] [place] [id number] Social History Tobacco Use Types Packs/Day Years Used Date Smoking Tobacco: Never Assessed Sex and Gender Information Value Date Recorded Sex Assigned at Not on file Gender Identity Not on file Sexual Orientation Not on file documented as of this encounter Plan of Treatment Not on file documented as of this encounter Procedures Procedure Name Priority Date/Time Associated Diagnosis Comments SURGICAL PATHOLOGY Routine 11/22/2001 0:00 EST documented in this encounter Results * SURGICAL PATHOLOGY (11/22/2001 0:00 EST) Pathology Report: SURGICAL PATHOLOGY REPORT Reports generated via electronic interface contain original data; however they are lacking the format of the original report. Caution should be taken when reading/interpreti ng unformatted reports. Name: ? BISMARK MAR ? Accession #: ? [id number] ? : ? 1975 (Age: 26) ??M ? Collect Date: ? 11/22/2001 ? Location: ? [facility] ? Receive Date: ? 11/26/2001 ? Provider: DIALLO GALEANA MD Copy to: ANGELIA PICKERING MD ? Final Pathologic Diagnosis: A. ?Vas deferens, right, vasectomy: 1. ?Full cross sections demonstrated. 2. ?No pathologic features. B. ?Vas deferens, left, vasectomy: 1. ?Full cross sections demonstrated. 2. ?No pathologic features. Document reviewed and electronically signed by: Luna Stroud [facility] Report ??Date: 11/28/2001 14:40 By the signature above, the attending physician certifies that he/she has personally conducted a gross and/or microscopic examination of the described specimens and rendered or confirmed the above diagnosis. Specimen(s) Received: A. ?Rt vas (#1) B. ?Left vas (#2) Clinical History: ? Vasectomy; clinical diagnosis code: V25.8 Gross Description: ? Received in formalin labelled Drown and #1 Rt vas is a cano-may cylindrically shaped fragment of soft tissue that measures 1.0 x 0.2 x 0.2 cm. The serosal surface is cano-may, smooth, and shiny. ??Serial sectioning reveals a pinpoint lumen with a wall thickness of 0.1 cm. ??Two office machines sales representative cross sections are submitted as (A). Received in formalin labelled Drown and Lt vas #2 is a cano-may cylindrically shaped fragment of soft tissue that measures 1.5 x 0.2 x 0.2 cm. Serial sectioning reveals a pinpoint lumen with a wall thickness of 0.1 cm. ??Two office machines sales representative cross sections are submitted as (B). ??(Dr. Dickey)/susy End of Report SAVANNAH VALENCIA 11/22/2001 11/26/2001 15: 14 EST Diallo Galeana MD PATHOLOGY ORDERABLE S Performing Organization Address City/State/[facility] Co de Phone Number SAVANNAH VALENCIA [address] [place] [address] documented in this encounter Visit Diagnoses Not on filedocumented in this encounter
--- OUTSIDE RECORDS SUMMARY | 2024-04-14 13:54 | XMS_ITS | Encounter Summary ---
Author Organization [facility] [place] [address] Care Team Providers Care Political Analyst Name Role Phone David Templeton MD Primary Care Provider [phone] Encounter Details Date Type Department Care Team (Latest Contact Info) Description 08/15/2013 9:32 AM EST - 08/15/2013 11:59 PM EST Hospital [place] [phone] Shashi Bennett MD [facility] [place] [address] PAF (paroxysmal atrial fibrillation) Discharge Disposition: Home Social History Tobacco [...] Procedure Name Priority Date/Time Associated Diagnosis Comments U24 HRS AND VOLUME Routine 08/15/2013 6: 00 AM EST METANEPHRINES, FRACTIONATED, URINE, 24 HOUR Routine 08/15/2013 6:00 AM EST PAF (paroxysmal atrial fibrillation) documented in this encounter Results * U24 Hrs and Volume (08/15/2013 6:00 AM EST) Hours Collected 24 hour(s) Avisena Urine TV (ml) 1850 mL Avisena Urine specimen (specimen) 08/15/2013 6:00 AM EST 08/15/2013 11:32 AM EST Narrative Resulting Agency Comment Spec In Lab Shashi Bennett MD CHEMISTRY ORDERABLE [facility] [facility] * (ABNORMAL) Metanephrines, Fractionated, urine, 24 hour [...] ??Urine Volume ?1850 ?mL Test Performed by: [place] [address] [place] Operator: Venancio Davies III, M.D.(A) THERON COMER Urine specimen (specimen) 08/15/2013 6:00 AM EST 08/15/2013 11:40 AM EST Narrative Resulting Agency Comment Spec In Lab Shashi Bennett MD URINE ORDERABLES THERON COMER documented in this encounter Visit Diagnoses Diagnosis PAF (paroxysmal atrial fibrillation) Atrial fibrillation documented in this encounter Care Teams Political Analyst Relationship Specialty Start Date End Date David Templeton MD [address] [place] [address] [address] [place] [address] PCP - General 08/01/13 documented as of this encounter
--- OUTSIDE RECORDS SUMMARY | 2024-04-14 13:54 | XMS_ITS | Encounter Summary ---
Author [place] [address] Care Team Providers Care Flight Technician Name Role Phone David Templeton MD Primary Care Provider [phone] Reason for Visit * Reason Onset Date Comments Medication Refill 02/09/2014 Encounter Details Date Type Department Care Team (Late st Contact Info) Description 02/09/2014 Ref[place] [phone] Debi Diop APRN [facility] [place] [address] Epilepsy Social History Tobacco Use Types Packs/Day Years [...] encounter Miscellaneous Notes * Telephone Encounter - Taylor Cerrato LPN - 02/09/2014 2:00 PM EDTFrom: Cole Mar To: Debi Diop APRN Sent: 02/09/2014 1:53 PM EDT Subject: Medication Renewal Request Original authorizing provider: DEBIZAY CHURCH would like a refill of the following medications: phenytoin (DILANTIN) 100 mg ER capsule [DEBI DIOP APRN] Preferred pharmacy: [id number] Comment: documented in this encounter Plan of Treatment Not on file documented as of this encounter Visit Diagnoses Diagnosis Epilepsy Unspecified epilepsy without mention of intractable epilepsy documented in this encounter Care Teams Flight Technician Relationship Specialty Start Date End Date David Templeton MD [address] [place] [address] PCP - General 08/01/13 documented as of this encounter
--- OUTSIDE RECORDS SUMMARY | 2024-04-14 13:54 | XMS_ITS | Encounter Summary ---
Author Organization [facility] [place] [address] Care Team Providers Care Leaf Conditioner Helper Name Role Phone Debbie Dukes MD Primary Care Provider [phone] Encounter Details Date Type Department Care Team (Late st Contact Info) Description 02/26/2012 9:10 AM EDT Follow-Up Cardiology at [address] [phone] Robby Allen MD [facility] [place] [address] AF (atrial fibrillation) (Primary Dx) Discharge Disposition: Home Social [...] Sign Reading Time Taken Comments Blood Pressure 100/60 02/26/2012 9:17 AM EDT Pulse 64 02/26/2012 9:17 AM EDT Temperature - - Respiratory Rate - - Oxygen Saturation 96% 02/26/2012 9:17 AM EDT Inhaled Oxygen Concentration - - Weight 121 kg (266 lb 12.8 oz) 02/26/2012 9:17 A M EDT Height 182.9 cm (6') 02/26/2012 9:17 AM EDT Body Mass Index 36.18 02/26/2012 9:17 AM EDT documented in this encounter Patient Instructions * Patient Instructions* Robby Allen MD - 02/26/2012 10:58 AM EDT Patient Instructions: Patient will need an echocardiogram(TTE) to evaluate hemodynamic significance of the outflow tract hypertrophy(MILD) on CMRI. Will also arrange appt with my colleague Dr. Valentín Palma to discuss catheter based therapy for AF,with PVI ablation, to inform patient as he would like learn more about the procedure given he is onsignificant doses of AV joseph blocking agents currently (Metoprolol 100mg XL daily and Diltiazem 180mg twice daily) at a young age and would potentially need life long therapy with these agents given he he has 6-7 episodes over the past 8-10 years. Transition of care to Dr. Domo Templeton after my departure in 05/2012, and next visit to be scheduled in 6 months time (August 2012) documented in this encounter Progress Notes * Robby Allen MD - 02/26/2012 10:40 AM EDT Subjective: Patient ID: Cole Mar is a 36 y.o. male for follow up of Atrial fibrillation and review of CMRIresults after admission from 08/02/11-08/05/11. Cardiac Problem List: 1) Paroxysmal Atrial Fibrillation, CHADs II score of 1(HTN). -He has a hx of PAF since at least 2003, however the actual burden is unknown as he is typically asymptomatic. 2) HTN HPI Since our last clinic visit(07/2011), patient has been doing well with no recurrent palpitations orAF symptoms. Patient has been active moving recently without any symptoms or limitations. Patient has not been exercising regularly as he would wish to do but is planning on increasing his exercise regimen as his children will be out of school soon. Medications are well tolerated with Metoprolol 100mg XL and Diltiazem 180mg BID with ASA 325mg and HCTZ for HTN with no side effects. Current outpatient prescriptions ordered prior to encounter Medication Sig Dispense Refill ??? metoprolol succinate (TOPROL-XL) 100 mg XL tablet Take 1 tablet by mouth daily. 90 tablet 3 ??? DILTiazem (CARDIZEM CD) 180 mg 24 hr capsule Take 1 capsule by mouth 2 times daily. 180 capsule3 ??? phenytoin (DILANTIN) 100 mg ER capsule Take 2 capsules by mouth. Take 1 in AM and 2 in PM 90 tablet 5 ??? hydrochlorothiazide (HYDRODIURIL) 12.5 mg tablet Take 12.5 mg by mouth daily. ??? lamoTRIgine (LAMICTAL) 100 mg tablet Take 1 tablet by mouth. Take 2 in AM and 1 in PM Indications: Epilepsy 90 tablet 5 ??? levothyroxine (SYNTHROID) 200 mcg tablet Take 200 mcg by mouth daily. ??? aspirin (ENTERIC COATED ASPIRIN) 325 mg EC tablet Take 1 tablet by mouth daily. 30 tablet 3 ??? lisinopril (PRINIVIL;ZESTRIL) 5 mg tablet Take 5 mg by mouth daily. Prior History as of 08/21/2011 Since discharge patient has been seen both in neurology clinic for EEG(in addition to brain MRI done as an inpatient) From a cardiac standpoint, patient remains asymptomatic with no symptoms(no palpitations, no presyncope/syncope). Patient has resume all of his prior activities and including chasing after his 12 and10 year old sons and has also been hunting without any restrictions. Patient has returned to work without issue. Prior History from 07/2011 which I have reviewed today prior to our visit: Mr Mar was hospitalized on 08/02/2011 following a period of unresponsiveness after which he was found to be in atrial fibrillation with rapid ventricular response to 150bpm. It apparently is not completely clear whether this was a typical seizure. His heart rate was controlled with IV diltiazem and he subsequently spontaneously converted to sinus rhythm. He was noted to have an elevated CK of 181 and a troponin of 0.19, thought due to demand ischemia. He underwent an echocardiogram that showed preserved LVEF of 70%, concentric LVH and was suggestiveof of non-obstructive hypertrophic cardiomyopathy. His history is significant for a history of seizures and chronic medication with lamictal and dilantin(last seizure about six months ago). He describes a previous episode about 8 years ago which was similar after which he was also found to be in atrial fibrillation which converted spontaneously to sinus rhythm. At that time, he was started on a beta edel and diltiazem orally and continued these for several years without recurrence and then was told to discontinue these(lived in [place], [place] at the time). Following this most recent hospitalization, he was discharged on diltiazem CD 360mg daily, metoprolol 100mg daily and lisinopril 5mg daily. His CHADS2 score = 1(hypertension) and he was advised to take aspirin 325mg daily. He has not subsequently suffered any recurrent events. He specifically denies chest pain, dyspnea, pre-syncope or syncope since August 02. ROS See above HPI for pertinent cardiac ROS Negative across 11 systems reviewed today; Objective: Physical Exam BP 100/60 Pulse 64 Ht 182.9 cm (6') Wt 121.02 kg (266 lb 12.8 oz) BMI 36.18 kg/m2 SpO2 96% General: calm, well-appearing, NAD HEENT: NCAT, MMM, op clear, no erythema or exudate CV: Regular, physiologic S1, S2, no murmurs or gallops Pulm: clear to ausculation bilaterally Abd: soft, NT, ND, +NABS, Ext: warm, no c/c/e, 2+ PT BLE MRI FOR CARDIAC FUNCTION AND MORPHOLOGY: 11/2011 INDICATION: Evaluation for arrhythmogenic right ventricular dysplasia and hypertrophic cardiomyopathy. History of atrial fibrillation now in sinus rhythm. TECHNIQUE: Cardiac MRI for cardiac function and morphology. Axial and short axis double inversion and triple inversion recovery images. Short axis, two chamber, three chamber, and four chamber functional imaging (FIESTA). Short and long axis images after intravenous contrast were acquired (20 mL Magnevist). Functional postprocessing was carried out at a separate workstation. FINDINGS: Comparison of double inversion and triple inversion recovery images does not reveal any fatty infiltration of the right ventricular myocardium. No right ventricular wall motion abnormality. Moderate concentric myocardial hypertrophy of the left ventricle. Myocardial thickness during diastole measures 13 mm at the posterolateral wall and 18 mm at the septum. Of note is an additional focal discrete thickening at the anteroseptal aspect of the base with a myocardial thickness of 25 mm. A mild flow void is seen in the subaortic region (series #503, image #164), which may be related to some degree of subaortic stenosis. Delayed postcontrast images show a small focus of enhancement at the anteroseptal base, which indicates a focus of fibrosis related to the hypertrophic cardiomyopathy. Dilatation of the aortic root with maximal diameter at the sinus of Valsalva of 40 mm. Sinotubular ridge measures 33 mm. Maximal diameter of the ascending aorta is 39 mm. Proximal aortic arch measures 34 mm. Mid aortic arch measures 21 mm. Normal caliber of the descending aorta. [id number] dilatation of the left atrium and mild dilatation of the right atrium. Normal chamber size of the right ventricle and also still borderline normal chamber size of the left ventricle. No global or segmental wall motion abnormality of the left ventricle. Calculated left ventricular ejection fraction is 74%. Left ventricular mass is 174 g, which is at the upper limit of normal for a male patient. No significant valvulopathy is identified. No pericardial thickening and no pericardial effusion. FUNCTIONAL ANALYSIS: LEFT VENTRICLE: Anteroseptal wall thickness: 1.5 cm. Posterolateral wall thickness: 1.3 cm. End-diastolic dimension: 5.5 cm. End-systolic dimension: 3.3 cm. Left ventricular end-diastolic volume: 133 mL. Left ventricular end-systolic volume: 35 mL. Left ventricular ejection fraction: 74%. Stroke volume: 98 mL. Left ventricular mass: 174 g. RIGHT VENTRICLE: Right ventricular end-diastolic volume: 163 mL. Right ventricular end-systolic volume: 66 mL. Right ventricular ejection fraction: 60%. Right ventricular stroke volume: 97 mL IMPRESSION: 1. No evidence of right ventricular dysplasia. Right ventricular wall motion and ejection fraction are within normal limits. 2. Moderate concentric left ventricular hypertrophy and discrete focal hypertrophy at the anteroseptal base. A subtle flow void within the left outflow tract may indicate mild narrowing, however, hemodynamic significance is not fully evaluatedon this exam. A small focus of fibrosis related to the hypertrophy is seen at the anteroseptal base of the left ventricle. 3. Dilatation of the ascending aorta, which measures 39 mm. 4. [id number] dilatation of the left atrium and possible mild dilatation of the right atrium. Assessment and Plan: No problem-specific visit notes found for this encounter. Cardiac Problem List: 1) Paroxysmal Atrial Fibrillation, CHADs II score of 1(HTN). -He has a hx of PAF since at least 2003, however the actual burden is unknown as he is typically asymptomatic. 2) HTN Assessment: Mr.Duane Taqueria Mar is a 36 y.o. male for follow up of Atrial fibrillation and review of CMRI results after admission from 08/02/11-08/05/11. Since our last clinic visit(07/2011), patient has been doing well with no recurrent palpitations orAF symptoms. Patient has been active moving recently without any symptoms or limitations. Patient has not been exercising regularly as he would wish to do but is planning on increasing his exercise regimen as his children will be out of school soon. Medications are well tolerated with Metoprolol 100mg XL and Diltiazem 180mg BID with ASA 325mg and HCTZ for HTN with no side effects. Patient Instructions: Patient will need an echocardiogram(TTE) to evaluate hemodynamic significance of the outflow tract hypertrophy(MILD) on CMRI. Will also arrange appt with my colleague Dr. Valentín Palma to discuss catheter based therapy for AF,with PVI ablation, to inform patient as he would like learn more about the procedure given he is onsignificant doses of AV joseph blocking agents currently (Metoprolol 100mg XL daily and Diltiazem 180mg twice daily) at a young age and would potentially need life long therapy with these agents given he he has 6-7 episodes over the past 8-10 years. Transition of care to Dr. Domo Templeton after my departure in 05/2012, and next visit to be scheduled in 6 months time (August 2012) documented in this encounter Plan of Treatment Not on file documented as of this encounter Results * ZIOPATCH (03/14/2012 10:56 AM EDT) Anatomical Region Laterality Modality Other Narrative 04/25/2012 9:53 AM EDT Ziopatch Interpreter Indication: Atrial Fibrillation Interpreting Physician: Dr. Robby [...] Note Robby Allen MD - 04/25/2012 Ziopatch Interpreter Indication: Atrial Fibrillation Interpreting Physician: Dr. Robby [...] Robby Allen MD CARDIAC SERVICES ORD ERABLES * Echo Transthoracic (Complete) (03/14/2012 10:45 AM EDT) EF [facility] Anatomical Region Laterality Modality Other 03/14/2012 Narrative 03/14/2012 4:05 PM EDT Procedure: ? Transthoracic Echocardiogram Patient: ? DROWN COLE L ?(Age): 1975(36) Med Rec#: ?[id number] ? Sex: ?M ? Site Loc: [facility] ? Ht / Wt: ??183(cm)/114(kg) Pt. Loc: ? Echo Lab ? BSA: ?2.41 Study Date: ?03/14/2012 ? Pt. Type: Outpatient Tape: ? Referring: Robby Allen MD Licensed Funeral Director And Embalmer: Katie Purcell Interpreting Fellow: Teressa Alexander ([id number]) Diagnosis:CPT Code(s): ??Color Doppler (36405), ??Echo Full (38761), Spectral Doppler (70606), Indication(s): ??Atrial fibrillation Rhythm: Sinus HR ?BP [...] ? Mid-Inferior ?Normal ? Mid-Inferoseptal ?Normal ? [place]-Septal ? Normal ? [place]-Anterior ? Normal ? [place]-Lateral ?Normal ? Salem-Inferior ? Normal ? [place]-Tip ?Normal ? Chambers ?Value ?Units (Range) ? [...] 03/14/2012 16:04:05 Images reviewed and interpretation verified [facility] Cardiac Ultrasound Laboratory Resulting Agency Comment [id number] Procedure Note Shashi Doherty MD - 03/14/2012 Procedure: Transthoracic Echocardiogram Patient: YESY Meng DOB(Age): 1975(36) Med Rec#: [id number] Sex: M Site Loc: [facility] Ht / Wt: 183(cm)/114(kg) Pt. Loc: Echo Lab BSA: 2.41 Study Date: 03/14/2012 Pt. Type: Outpatient Tape: Referring: Robby Allen MD Licensed Funeral Director And Embalmer: Katie Purcell Interpreting Fellow: Teressa Alexander ([id number]) Diagnosis:CPT Code(s): Color Doppler (57173), Echo Full (69067), Spectral Doppler (27087), Indication(s): Atrial fibrillation Rhythm: Sinus HR BP [...] Normal Mid-Posterolateral Normal Mid-Inferior Normal Mid-Inferoseptal Normal Salem-Septal Normal Salem-Anterior Normal Salem-Lateral Normal Salem-Inferior Normal Salem-Tip Normal Chambers Value Units (Range) IVSd 2D [...] This report has been electronically signed by: Loreta Doherty M.D. 03/14/2012 16:04:05 Images reviewed and interpretation verified [facility] Cardiac Ultrasound Laboratory Robby Allen MD ECHO ORDERABLES documented in this encounter Visit Diagnoses Diagnosis AF (atrial fibrillation)- Primary Atrial fibrillation AF (atrial fibrillation) Atrial fibrillation AF (atrial fibrillation) Atrial fibrillation documented in this encounter Care Teams Leaf Conditioner Helper Relationship Specialty Start Date End Date Debbie Dukes MD [address] [place] [address] PCP - General 09/20/11 07/31/13 documented as of this encounter
--- OUTSIDE RECORDS SUMMARY | 2024-04-14 13:54 | XMS_ITS | Encounter Summary ---
[place] [address] Care Team Providers Care Summons Server Name Role Phone Angelia Templeton MD Primary Care Provider [phone] Encounter Details Date Type Department Care Team (Late st Contact Info) Description 02/16/2015 10:20 AM EDT [place] [address] Natalia Francisco [address]N [facility] [place] [address] Lower urinary tract symptoms; Nocturia Discharge Disposition: Home Social History Tobacco Use [...] Sign Reading Time Taken Comments Blood Pressure 125/78 02/16/2015 10:14 AM EDT Pulse 76 02/16/2015 10:14 AM EDT Temperature - - Respiratory Rate - - Oxygen Saturation 97% 02/16/2015 10:14 AM EDT Inhaled Oxygen Concentration - - Weight 127 kg (280 lb) 02/16/2015 10:14 AM EDT Height 203.2 cm (6' 8) 02/16/2015 10:14 AM EDT Body Mass Index 30.76 02/16/2015 10:14 AM EDT documented in this encounter Patient Instructions * Patient Instructions* Natalia Francisco ZAY - 02/16/2015 10:38 AM EDT Behavioral Therapies The following foods may increase bladder overactivity and contribute to your lower urinary tract symptoms, as well as urinary incontinence. Please moderate in your diet: Alcohol, coffee, tea, citrus fruits and juices, tomatoes, spicy foods, sugar, honey, chocolate, onions, artificial sweeteners (especially nutrasweet), vinegar, aged or fermented foods, highly acidic foods Some fruits may contribute as well: apples, cantaloupe, strawberries, cranberries, grapes, guava, peaches, pineapples and plums Chamomile or peppermint teas are ok. Blueberry and pear juice are ok Please limit fluid to 64 oz per day, mostly water. Cut back on fluids after 6 pm (preferrably sips). If you have dry mouth, try sugar free candies, gum, or an oral moisturizer (like Biotene). Please get regular dental checks especially if you are on medications that make your mouth dry Timed void every 2 hours during the day, double void (take time to feel you empty fully) by gettingup and sitting back down, or changing position. Remember, the best time to void is PRIOR to having the urge. Move your bowels daily. Take a fiber supplement like metamucil, or you could try Miralax. Please use these per the recommendations on the back of the package. If you find you have lower extremity swelling, lay flat for on hour prior to bed. If you are on a diuretic, try taking the diuretic around 2 pm, laying flat from 3-4 pm and then cutting back on fluid after 6 pm. This will help get rid of most of the fluid in your tissues prior to bed and minimize the amount of fluid you put back in your system before you are in bed for the night. Trial of physical therapy and biofeedback may be helpful for you Weight loss-has been shown to decrease the incidence of urinary incontinence. Keep a voiding diary of your symptoms. Further Treatment Options Consideration of medical therapies including: Anticholinergics (Detrol, Ditropan, Oxybutynin, Enablex, Vesicare, Sanctura, Toviaz) Alpha blockers (Flomax, Uroxatral, Terazosin, Doxazosin), PDE5 Inhibitors (Levitra, Cialis, Viagra), 5 alpha reductase inhibitors (Proscar, Avodart) lamictal can contribute to urgency/frequency as well. Avoid decongestants or antihistamines if you are not emptying your bladder well as this may increase your risk of urinary retention If you are not emptying your bladder well, it is reasonable to consider clean intermittent catheterization. You should urinate and catheterize yourself often enough each day to keep your total bladder (void + cath) volumes under 500 cc at all times. Consider surgical therapies for your prostate so that you may stop medical therapies If your symptoms are bothersome enough to consider a surgical therapy and it seems most of your symptoms are related to your prostate, we can discuss urodynamic testing and possible surgical therapies Call us if you have blood in your urine that you can see at any time. documented in this encounter Progress Notes * Natalia Francisco APRN - 02/16/2015 10:19 AM EDT UROLOGY CLINIC NEW PATIENT ASSESSMENT Patient Primary Care Provider: ANGELIA TEMPLETON MD Referring Provider: Angelia Templeton MD History of Present Illness: Cole Mar is a 39 y.o. year old man, seen at the request of Angelia Eaton MD who presents for evaluation and assessment of urinary frequency. He has had urinary symptoms for about [address] Templeton have been received and reviewed. Pt is on hctz, as well as lamictal and dilantin. He has a history of afib, but also seizures. The lamictal can contribute to urinary frequency/urgency and possible retention. He wakes 2-3 times at night. He has been on flomax without benefit, and recently in 12/2014 started oxybutynin 5 mg po twice daily. He tried the flomax 0.4 mg po daily x 2 months without benefit. He feels the oxybutynin has been somewhat helpful, nocturia x 5 down to 2 times. The urge is waking him. Feels he does not empty well at times. He does not leak urine. His stream is weak, same as prior to the oxybutynin. No gross hematuria or UTIs. No pads. No straining, some intermittency. Bowels are somewhat constipated, no meds. Bowels moved 2-3 times per week. He drinks 1-2 20 oz bottles of soda-is cutting down. 1 glass of milk. 2-3 glasses of water per day. He has minimal urge during the day. Takes the hctz in the morning but minimal frequency with this. He has aching closer to his rectum after orgasm. No ED issues recently. IPSS: 01/2015: 21 (12/26/3/2/4/0/4) with bother of mostly dissatisfied Nocturia is most bothersome. He feels his symptoms started prior to the lamictal. GENERAL HEALTH: Could be better. REVIEW OF SYSTEMS: Negative. -- LAYOUT INSPECTOR - No headaches or loss of consciousness -- RS - No cough or breathing difficulties -- CVS - No chest pain or CASTANEDA. No claudication. Doing ok regarding the afib -- GI -normal appetite and bowels -- MUSCULOSKELETAL - No joint or muscle aches or dysfunction Doing ok with the seizures. Past Medical History Diagnosis Date ??? Hypertension ??? Hypothyroidism ??? Erectile dysfunction ??? Seizure ??? Atrial fibrillation Past Surgical History Procedure Laterality Date ??? Cholecystectomy ??? Hernia repair vasectomy Social: single, respite care. No smoking. No etoh x a few years. FAMILY HISTORY: None urologic PHYSICAL EXAM: Vital signs normal - see Data Flow Sheet Oriented to person, place and time. Healthy appearance. Color normal. No significant skin lesions. Head: atraumatic and normocephalic Abdomen: benign without masses, rebound, guarding, or tenderness. No hepatosplenogmegaly. No CVA tenderness. Genitalia:Scrotum - Color and texture normal; no masses. Testicles and epididymides without tenderness or masses, some bilateral epididymal head fullness likely postvas changes. Penis-circumcised with orthotopic meatus; nomasses or surface lesion. Rectal: The anus and perineum are normal. Rectal sphincter tone is normal. There is not any levatorani tenderness, and there are no rectal masses. The prostate first cm of apex felt smooth without masses, base not palpated. Musculoskeletal: grossly normal, no gait issues Neurologic: grossly normal No BLE edema PVR with scanner by my review: 128-131 cc and could not void more. U/A by my review: neg PSA history by my review: none on file IMPRESSION: LUTS/nocturia. PLAN/RECOMMENDATIONS: We discussed the contributors to LUTS. The lamictal can contribute to urinary frequency/urgency andpossible retention. He is also on hctz, but does not seem to have a lot of frequency with this in the morning. We discussed his PVR and that he is not emptying completely today. Some of this may be from the oxybutynin. We discussed behavioral therapies per the handout given to him today. Hydration with water, moderation of bladder irritants like soda, moderation of bowels, cut back on fluids after 6 pm. Discussed diuretic in the afternoon to minimize fluid output at bedtime. We discussed medication options including: alpha blockers, 5 alpha reductase inhibitors and PDE5 inhibitors. We discussed anticholinergics. I would not start him on finasteride at this time. We discussed the option of continuing oxybutynin 5 mg po twice daily if we restart the flomax to help him empty better, with the goal of possibly increasing the oxybutynin to 5 mg po three times a day in the future. He is content with this. We discussed side effects of flomax and caution if he ever takes meds for ED (which he has not needed for 2 years). We briefly discussed CIC and rationale for this, only for prn use at this time. He would prefer to defer which is reasonable given his PVR. He will work on the behavioral therapies and I will see him back in 8 weeks. If he is emptying better, we will increase his oxybutnin. We discussed UDS for more information in the future, and can consider further surgical therapies atthat time if appropriate. We discussed PT for pelvic floor therapy. He will defer but possibly consider in the future given discomfort at times after intercourse. We discussed PSA. What I could feel of his prostate was normal today, no family history. We could likely defer PSA at this time, but will revisit in the future. I answered all questions to the patients apparent satisfaction. Natalia Alberto APRN documented in this encounter Plan of Treatment Not on file documented as of this encounter Visit Diagnoses Diagnosis Lower urinary tract symptoms Other symptoms involving urinary system Nocturia documented in this encounter Care Teams Summons Server Relationship Specialty Start Date End Date Angelia Templeton MD [address] [place] [address] PCP - General 08/01/13 documented as of this encounter
--- OUTSIDE RECORDS SUMMARY | 2024-04-14 13:54 | XMS_ITS | Encounter Summary ---
[place] [address] Care Team Providers Care Aircraft Accessories Mechanic Name Role Phone Debbie Dukes MD Primary Care Provider [phone] Reason for Visit * Reason Comments Medication Refill Encounter Details Date Type Department Care Team (Late st Contact Info) Description 01/26/2013 Refill [place] [address] Alexa Moyer APRN [facility] [place] [address] Social History Tobacco Use Types Packs/Day Years [...] on filedocumented in this encounter Care Teams Aircraft Accessories Mechanic Relationship Specialty Start Date End Date Debbie Dukes MD [address] [place] [address] PCP - General 09/20/11 07/31/13 documented as of this encounter
--- OUTSIDE RECORDS SUMMARY | 2024-04-14 13:54 | XMS_ITS | Encounter Summary ---
[place] [address] Care Team Providers Care Home Furnishings Sales Representative Name Role Phone Debbie Dukes MD Primary Care Provider [phone] Reason for Visit * Reason Onset Date Comments Medication Refill 07/28/2012 Encounter Details Date Type Department Care Team (Late st Contact Info) Description 07/28/2012 [place] [id number] Debi Diop APRN [facility] [place] [address] Epilepsy Social History Tobacco Use Types Packs/Day [...] encounter Miscellaneous Notes * Telephone Encounter - Belkis Campbell MA - 07/29/2012 1:04 PM ESTFrom: ERENShefaliBISMARK To: Debi Diop APRN Sent: Rosalind Jul 28, 2012 6:31 PM Subject: Medication Renewal Request Original authorizing provider: ZAY AMOR would like a refill of the following medications: phenytoin (DILANTIN) 100 mg ER capsule [DEBI DIOP APRN] Preferred pharmacy: [phone] Comment: documented in this encounter Plan of Treatment Not on file documented as of this encounter Visit Diagnoses Diagnosis Epilepsy Unspecified epilepsy without mention of intractable epilepsy documented in this encounter Care Teams Home Furnishings Sales Representative Relationship Specialty Start Date End Date Debbie Dukes MD [address] [place] [address] PCP - General 09/20/11 07/31/13 documented as of this encounter
--- OUTSIDE RECORDS SUMMARY | 2024-04-14 13:54 | XMS_ITS | Encounter Summary ---
[place] [address] Care Team Providers Care Metal Trim Erector Name Role Phone Debbie Dukes MD Primary Care Provider [phone] Reason for Visit * Reason Onset Date Comments Medication Refill 04/11/2012 Encounter Details Date Type Department Care Team (Late st Contact Info) Description 04/11/2012 [place] [phone] Alexa Moyer APRN [facility] [place] [address] Epilepsy (Primary Dx) Social History Tobacco Use [...] epilepsy documented in this encounter Care Teams Metal Trim Erector Relationship Specialty Start Date End Date Debbie Dukes MD [address] [place] [address] PCP - General 09/20/11 07/31/13 documented as of this encounter
--- OUTSIDE RECORDS SUMMARY | 2024-04-14 13:54 | XMS_ITS | Encounter Summary ---
Author Organization [facility] [place] [address] Care Team Providers Care Valving Machine Operator Name Role Phone Debbie Dukes MD Primary Care Provider [phone] Reason for Visit * Reason Onset Date Comments Medication Refill 01/15/2012 Encounter Details Date Type Department Care Team (Late st Contact Info) Description 01/15/2012 Refill Cardiology at [address] [phone] Robby Allen MD [facility] [place] [address] Medication Refill Social History Tobacco Use Types [...] of this encounter Visit Diagnoses Diagnosis Atrial fibrillation- Primary documented in this encounter Care Teams Valving Machine Operator Relationship Specialty Start Date End Date Debbie Dukes MD [address] [place], [place] [address] PCP - General 09/20/11 07/31/13 documented as of this encounter
--- OUTSIDE RECORDS SUMMARY | 2024-04-14 13:54 | XMS_ITS | Encounter Summary ---
Author Organization [facility] [address] Care Team Providers Care Pipe Fitter Marine Name Role Phone David Tempelton MD Primary Care Provider [phone] Encounter Details Date Type Department Care Team (Late st Contact Info) Description 01/01/2014 Orders Only [place] [address] Raffy Kauffman MD [facility] [place] [address] Possible Hypertrophic cardiomyopathy (Primary Dx) Social History Tobacco Use Types [...] documented as of this encounter Results * Miscellaneous Lab request (01/01/2014 2:20 PM EDT) [facility] Lab Result Request received in labMelodie [facility] Blood specimen (specimen) 01/01/2014 2:20 PM EDT 01/01/2014 2:39 PM EDT Raffy Kauffman MD HEMATOLOGY ORDERAB LES Performing Organization Address City/State/[facility] Co ms Phone Number [facility] documented in this encounter Visit Diagnoses Diagnosis Possible Hypertrophic cardiomyopathy- Primary Other hypertrophic cardiomyopathy documented in this encounter Care Teams Pipe Fitter Marine Relationship Specialty Start Date End Date David Templeton MD [address] [place] [address] PCP - General 08/01/13 documented as of this encounter
--- OUTSIDE RECORDS SUMMARY | 2024-04-14 13:54 | XMS_ITS | Encounter Summary ---
[place] [address] Care Team Providers Care Clerk General Office Name Role Phone Debbie Dukes MD Primary Care Provider [phone] Reason for Visit * Reason Onset Date Comments Medication Refill 12/10/2012 Encounter Details Date Type Department Care Team (Late st Contact Info) Description 12/10/2012 [place] [address] Alexa Moyer APRN [facility] [place] [address] Epilepsy (Primary Dx) Social History Tobacco Use [...] epilepsy documented in this encounter Care Teams Clerk General Office Relationship Specialty Start Date End Date Debbie Dukes MD [address] [place] [address] PCP - General 09/20/11 07/31/13 documented as of this encounter
--- OUTSIDE RECORDS SUMMARY | 2024-04-14 13:54 | XMS_ITS | Encounter Summary ---
[place] [address] Care Team Providers Care Personal Security Specialist Name Role Phone David Templeton MD Primary Care Provider [phone] Encounter Details Date Type Department Care Team (Late st Contact Info) Description 04/19/2015 8:40 AM EDT [place] [address] Natalia Francisco APRN [facility] [place] [address] Lower urinary tract symptoms; Nocturia Discharge Disposition: [...] on file documented as of this encounter Progress Notes * Natalia Francisco APRN - 04/19/2015 8:42 AM EDT UROLOGY CLINIC History of Present Illness: Cole Mar is a 39 y.o. year old man here for follow up of LUTS and nocturia. He is on hctz, lamictal and dilantin. He has a history of afib, but also seizures. The lamictal cancontribute to urinary frequency/urgency and possible retention. He has been on flomax without benefit x 2 months, and recently in 12/2014 started oxybutynin 5 mg po twice daily. He did the behavioral therapies. He has less urgency during the day. 1 hour after he lays down at night, he has to void. Now he is waking 0 times, sometimes 2 times. He generally wakes 1 time after the initial void. He feels he empties well on Flomax 0.4 and oxybutynin 5 mg po twice daily. Stream is ok. Urge is waking him. He is not leaking urine. No gross hematuria or UTIs. No pads. No straining, some intermittency. He takes the hctz in the morning. Constipated, using stool softener but has not tried miralax. No soda now, down from 40 oz per day. Having power keyana-20-40 oz only if hot, water-3-4 16 oz glasses. IPSS: 01/2015: 21 (12/26//2///4) with bother of mostly dissatisfied He has the AVS from the first visit at home, he does not need it again Past Medical History Diagnosis Date ??? Hypertension [...] or tenderness. No hepatosplenogmegaly. No CVA tenderness. Genitalia: deferred Rectal: deferred (01/2015: The anus and perineum are normal. Rectal sphincter tone is normal. There is not any levator ani tenderness, and there are no rectal masses. The prostate first cm of apex felt smooth without masses, base not palpated.) Musculoskeletal: grossly normal, no gait issues Neurologic: grossly normal No BLE edema PVR with scanner by my review: 04/19/15: 280-302 cc and then voided 20 cc 01/2015: 128-131 cc and could not void more. U/A by my review: neg PSA history by my review: none on file IMPRESSION: LUTS/nocturia with poor emptying today PLAN/RECOMMENDATIONS: He is emptying less well on the oxybutynin with the flomax. Will stop the oxybutynin and have him learn CIC. He is content and understands the benefit of getting his bladder empty. I will have him stay on the flomax 0.4 mg po daily. He will keep a voiding diary so when I see him in 2-3 weeks, I cansee his void/cath amounts. He will void and cath often enough to keep the total volumes under 500 cc, starting with 1 time at bed first and titrating as he needs to He will try miralax. He will change his hctz to the afternoon to help his nocturia. He will work on the behavioral therapies again as well, he has the list at home. We discussed UDS for more information in the future, and can consider further surgical therapies atthat time if appropriate. We can consider PT for pelvic floor therapy as well. We will defer PSA at this time, but will consider in the future if ongoing issues. What I could feel of his prostate in the past was normal, no family history of [employer]. I answered all questions to the patients apparent satisfaction. Natalia Alberto APRN documented in this encounter Plan of Treatment Not on file documented as of this encounter Visit Diagnoses Diagnosis Lower urinary tract symptoms Other symptoms involving urinary system Nocturia documented in this encounter Care Teams Personal Security Specialist Relationship Specialty Start Date End Date David Templeton MD [address] [place] [address] PCP - General 08/01/13 documented as of this encounter
--- OUTSIDE RECORDS SUMMARY | 2024-04-14 13:54 | XMS_ITS | Encounter Summary ---
[place] [address] Care Team Providers Care Dividend Clerk Name Role Phone Debbie Dukes MD Primary Care Provider [phone] Encounter Details Date Type Department Care Team (Late st Contact Info) Description 09/11/2012 7:45 AM EST Follow-Up [place] [id number] Alexa Moyer APRN [facility] [place] [address] Epilepsy; High risk medication use Discharge Disposition: [...] Sign Reading Time Taken Comments Blood Pressure 119/76 09/11/2012 8:00 AM EST Pulse 68 09/11/2012 8:00 AM EST Temperature - - Respiratory Rate - - Oxygen Saturation - - Inhaled Oxygen Concentration - - Weight 119.2 kg (262 lb 11.2 oz) 09/11/2012 8:00 AM EST Height 182.9 cm (6') 09/11/2012 8:00 AM EST Body Mass Index 35.63 09/11/2012 8:00 AM EST documented in this encounter Progress Notes * Alexa Moyer APRN - 09/11/2012 8:25 AM EST HPI: Cole returns for a scheduled follow up visit. He came to the office alone. He is doing well. He has had only one seizure since our last visit. This occurred when he had missed his medication for several days in a row. He has had a few auras over the last week during a bout of the GI virus that he had. Otherwise he has been fine. He feels much better on this combination of medication. ROS: positive for insomnia with difficultly falling asleep. He takes an occasional Tylenol PM whichhelps. Denies headache or double vision. Denies rash, dizziness, balance issues. Feels depressed attimes. Started zoloft which helps. Recent right ankle sprain. Recent gastrointestinal flu. Outpatient Prescriptions Marked as Taking for the 09/11/12 encounter (Follow-Up) with Alexa Moyer APRN Medication Sig Dispense Refill ??? sertraline (ZOLOFT) 50 mg tablet Take 50 mg by mouth daily. ??? sildenafil (VIAGRA) 100 mg tablet Take 100 mg by mouth as needed. ??? phenytoin (DILANTIN) 100 mg ER capsule Take 2 capsules by mouth. Take 1 in AM and 2 in PM 90 tablet 0 ??? lamoTRIgine (LAMICTAL) 100 mg tablet Take 2 tablets by mouth 2 times daily. Indications: Epilepsy 120 tablet 5 ??? DILTiazem (CARDIZEM CD) 180 mg 24 [...] mouth daily. Objective: Physical Exam Blood pressure 119/76, pulse 68, height 182.9 cm (6'), weight 119.16 kg (262 lb 11.2 oz). Constitutional: He is oriented to person, place, and time and well-developed, well-nourished, and in no distress. Eyes: EOM are normal. One beat of nystagmus on right lateral gaze. Neurological: He is oriented to person, place, and time. He has a normal Qedwkk-Ltpm-Vacjts Test and a normal Tandem Gait Test. Gait normal. Skin: No rash noted. Psychiatric: Mood normal. Laboratory Studies: I am checking CBC, LFTs, AED levels and vitamin D level Assessment and Plan: Cole is doing much better since getting to a higher dose of lamictal, provided he takes the medication as prescribed. He has no new complaints. His living situation is still the same and he has had some depressive symptoms regarding that but is now on an antidepressant which has helped. He will return in 6 months for follow up. documented in this encounter Plan of Treatment Not on file documented as of this encounter Procedures Procedure Name Priority Date/Time Associated Diagnosis Comments LAMOTRIGINE LVL Routine 09/11/2012 8:47 AM EST Epilepsy HEMOGRAM Routine 09/11/2012 8:47 AM EST High risk medication use PHENYTOIN LEVEL, TOTAL AND FREE Routine 09/11/2012 8:47 AM EST Epilepsy VITAMIN D, 25-HYDROXY Routine 09/11/2012 8:47 AM EST High risk medication use HEPATIC FUNCTION PANEL Routine 09/11/2012 8:47 AM EST High risk medication use documented in this encounter Results * (ABNORMAL) VIT D Total Evaluation (09/11/2012 8:47 AM EST) 25-OH Vit D Total 22(L) 30 - 100 ng/mL [facility] Comment: Deficient <10 ng/mL Insufficient 10 to 29 ng/mL Sufficient 30 to 100 ng/mL Potential Intoxication >100 ng/mL According to the [place] National Osteoporosis Foundation, Vitamin D concentrations >30 ng/mL are sufficient to protect bone health. ??The National Kidney Foundation has similarly stated that patients with Vitamin D concentrations <30ng/mL should be considered to be insufficient or deficient. http://www.kidney.org/professionals/KDOQI/guidelines_bone/Guide7.htm http://www.nof.org/professionals/clinical-guidelines The IDS iSYS Vitamin D Immunoassay detects both 25-OH Vitamin D2 and 25-OH Vitamin D3, but only a total Vitamin D concentration is reported. Blood specimen (specimen) 09/11/2012 8:47 AM EST 09/11/2012 8:58 AM EST Narrative Resulting Agency Comment Spec In Lab Annie Soto MD CHEMISTRY ORDERABLES Performing Organization Address City/[facility]/ZIP Co de Phone Number [facility] [employer] * Hepatic Function Panel (09/11/2012 8:47 AM EST) Total Protein 7.3 6.4 - 8.3 gm/dL [facility] Albumin 4.4 3.2 - 5.2 gm/dL [facility] AST 24 0 - 39 unit/L [facility] ALT 40 0 - 55 unit/L [facility] Alk Phos 119 40 - 120 unit/L [facility] Total Bilirubin 0.3 0.2 - 1.3 mg/dL [facility] Bili, Direct 0.1 0.0 - 0.3 mg/dL [facility] Blood specimen (specimen) 09/11/2012 8:47 AM EST 09/11/2012 8:58 AM EST Narrative Resulting Agency Comment Spec In Lab Annie Soto MD CHEMISTRY ORDERABLES [facility] Schedule [employer] * (ABNORMAL) Hemogram (09/11/2012 8:47 AM EST) WBC 4.8 4.0 - 10.0 x10(3)/mcL [facility] RBC 4.99 4.63 - 6.08 x10(6)/mcL [facility] Hemoglobin 16.7 13.7 - 17.5 gm/dL [facility] Hematocrit 47.5 40.0 - 51.0 % [facility] MCV 95.2(H) 79.0 - 92.0 fL [facility] MCH 33.5(H) 25.6 - 32.2 pg [facility] MCHC 35.2 32.0 - 36.5 gm/dL [facility] Platelets 255 145 - 370 x10(3)/mcL [facility] RDWSD 44.3 35.0 - 46.0 fL [facility] RDWCV 12.8 10.9 - 14.4 % [facility] MPV 9.7 9.0 - 12.0 fL [facility] Blood specimen (specimen) 09/11/2012 8:47 AM EST 09/11/2012 8:58 AM EST Narrative Resulting Agency Comment Spec In Lab Annie Soto MD HEMATOLOGY ORDERABLE S [facility] * Lamotrigine Lvl (09/11/2012 8:47 AM EST) Lamotrigine Lvl 2.2 2.5 - 15.0 mcg/mL [facility] Comment: Test Performed by: [place] [address] Attache: Venancio Davies III, M.D. Blood specimen (specimen) 09/11/2012 8:47 AM EST 09/11/2012 11:10 AM EST Narrative Resulting Agency Comment Spec In Lab Annie Soto MD CHEMISTRY ORDERABLES [facility] * Phenytoin level, total and free (09/11/2012 8:47 AM EST) Phenytoin Lvl 12.9 10.0 - 20.0 mg/L [facility] Comment: Theraputic range: ??10-20 mg/L Toxic: ??> 25 mg/L Patients with renal dysfunction (e.g.creatinine clearance < 30 mls/min) may show falsely elevated results due to accumulation of metabolites in renal failure Phenytoin, Free 1.02 1.00 - 2.00 mg/L [facility] Comment: Therapeutic range: ? Free phenytoin: ??1.00-2.00 mg/L ? % Free phenytoin: ??8-12% Toxic range: ? Free phenytoin: ??>3.00 mg/L Phenytoin Free% 8 8 - 12 % [facility] Blood specimen (specimen) 09/11/2012 8:47 AM EST 09/11/2012 8:58 AM EST Narrative Resulting Agency Comment Spec In Lab Annie Soto MD CHEMISTRY ORDERABLES [facility]ERON COMER documented in this encounter Visit Diagnoses Diagnosis Epilepsy Unspecified epilepsy without mention of intractable epilepsy High risk medication use Encounter for long-term (current) use of other medications documented in this encounter Care Teams Dividend Clerk Relationship Specialty Start Date End Date Debbie Dukes MD [address] [place] [address] PCP - General 09/20/11 07/31/13 documented as of this encounter
--- OUTSIDE RECORDS SUMMARY | 2024-04-14 13:55 | XMS_ITS | Encounter Summary ---
Author Organization [facility] Address [place] [id number] Care Team Providers Care Copy Center Associate Name Role Phone Debbie Dukes MD Primary Care Provider [phone] Encounter Details Date Type Department Care Team (Latest Contact Info) Description 12/05/2011 8:09 AM EDT - 12/05/2011 11:59 PM EDT Hospital [place] [id number] CLINIC, Robby Jackson MD [facility] [place] [address] Cardiomyopathy Discharge Disposition: Home Social History Tobacco Use [...] Sign Reading Time Taken Comments Blood Pressure - - Pulse - - Temperature - - Respiratory Rate - - Oxygen Saturation - - Inhaled Oxygen Concentration - - Weight 113.4 kg (250 lb) 12/05/2011 6:35 AM EDT Height - - Body Mass Index 33.91 11/16/2011 2:51 PM EST documented in this encounter Medications at Time of Discharge Medication Sig Dispensed Refills Start Date End Date hydrochlorothiazide (HYDRODIURIL) 12.5 mg tablet Take 12.5 mg by mouth daily. levothyroxine (SYNTHROID) 200 mcg tabletIndications:adju nct to surgery or radiotherapy for thyroid carcinoma Take 200 mcg by mouth daily. Takes with 50mcg Indications: ADJUNCT TO SURGERY OR RADIOTHERAPY FOR THYROID CARCINOMA aspirin (ENTERIC COATED ASPIRIN) 325 mg EC tablet Take 1 tablet by mouth daily. 30 tablet 3 08/05/2011 lisinopril (PRINIVIL;ZESTRIL) 5 mg tablet Take 5 mg by mouth daily. phenytoin (DILANTIN) 50 mg tablet Take 50 mg by mouth every morning. 01/12/2012 DILTiazem (CARDIZEM CD) 180 mg 24 hr capsule Take 180 mg by mouth 2 times daily. 01/15/2012 phenytoin (DILANTIN) 100 mg ER capsuleIndications:Epi lepsy Take 2 capsules by mouth. Take 1 in AM and 2 in PM 90 tablet 5 11/16/2011 01/12/2012 lamoTRIgine (LAMICTAL) 100 mg tabletIndications:epil epsy Take 1 tablet by mouth. Take 2 in AM and 1 in PM Indications: Epilepsy 90 tablet 5 11/16/2011 04/11/2012 metoprolol succinate (TOPROL-XL) 100 mg XL tabletIndications:Atri al fibrillation Take 1 tablet by mouth daily. 90 tablet 1 09/04/2011 01/15/2012 documented as of this encounter Miscellaneous Notes * Miscellaneous - Provider, Scanning - 12/14/2011 9:52 AM EDT documented in this encounter Plan of Treatment Not on file documented as of this encounter Procedures Procedure Name Priority Date/Time Associated Diagnosis Comments MRI CARDIAC MORPHOLOGY FUNCTION WWO CONTRAST Routine 12/05/2011 10:30 AM EDT Other primary cardiomyopathies documented in this encounter Results * MRI- CARDIAC MORPH/FUNC WITH/WO CONTRAST (12/05/2011 10:30 AM EDT) Anatomical Region Laterality Modality Magnetic Resonan ce 12/05/2011 10:3 0 AM EDT Impressions 12/10/2011 7:21 AM EDT IMPRESSION: ?? 1. ??No evidence of right ventricular dysplasia. ??Right ventricular wall motion and ejection fraction are within normal limits. ?? 2. ??Moderate concentric left ventricular hypertrophy and discrete focal hypertrophy at the anteroseptal base. ??A subtle flow void within the left outflow tract may indicate mild narrowing, however, hemodynamic significance is not fully evaluated on this exam. ??A small focus of fibrosis related to the hypertrophy is seen at the anteroseptal base of the left ventricle. 3. ??Dilatation of the ascending aorta, which measures 39 mm. 4. ??Mvji-yv-ilzyztdb dilatation of the left atrium and possible mild dilatation of the right atrium. Narrative 12/10/2011 7:21 AM EDT MRI FOR CARDIAC FUNCTION AND MORPHOLOGY: INDICATION: ??Evaluation for arrhythmogenic right ventricular dysplasia and hypertrophic cardiomyopathy. History of atrial fibrillation now in sinus rhythm. TECHNIQUE: ??Cardiac MRI for cardiac function and morphology. Axial and short axis double inversion and triple inversion recovery images. Short axis, two chamber, three chamber, and four chamber functional imaging (FIESTA). Short and long axis images after intravenous contrast were acquired (20 mL Magnevist). Functional postprocessing was carried out at a separate workstation. ?? FINDINGS: ??Comparison of double inversion and triple inversion recovery images does not reveal any fatty infiltration of the right ventricular myocardium. ??No right ventricular wall motion abnormality. ?? Moderate concentric myocardial hypertrophy of the left ventricle. ??Myocardial thickness during diastole measures 13 mm at the posterolateral wall and 18 mm at the septum. ??Of note is an additional focal discrete thickening at the anteroseptal aspect of the base with a myocardial thickness of 25 mm. ??A mild flow void is seen in the subaortic region (series #503, image #164), which may be related to some degree of subaortic stenosis. ??Delayed postcontrast images show a small focus of enhancement at the anteroseptal base, which indicates a focus of fibrosis related to the hypertrophic cardiomyopathy. Dilatation of the aortic root with maximal diameter at the sinus of Valsalva of 40 mm. ??Sinotubular ridge measures 33 mm. ??Maximal diameter of the ascending aorta is 39 mm. ??Proximal aortic arch measures 34 mm. ??Mid aortic arch measures 21 mm. ??Normal caliber of the descending aorta. Rzdp-vi-vkzxfkna dilatation of the left atrium and mild dilatation of the right atrium. ??Normal chamber size of the right ventricle and also still borderline normal chamber size of the left ventricle. ??No global or segmental wall motion abnormality of the left ventricle. ??Calculated left ventricular ejection fraction is 74%. ??Left ventricular mass is 174 g, which is at the upper limit of normal for a male patient. ??No significant valvulopathy is identified. ?? No pericardial thickening and no pericardial effusion. FUNCTIONAL ANALYSIS: LEFT VENTRICLE: Anteroseptal wall thickness: ??1.5 cm. Posterolateral wall thickness: ??1.3 cm. End-diastolic dimension: ??5.5 cm. End-systolic dimension: ??3.3 cm. Left ventricular end-diastolic volume: ??133 mL. Left ventricular end-systolic volume: ??35 mL. Left ventricular ejection fraction: ??74%. Stroke volume: ??98 mL. Left ventricular mass: ??174 g. RIGHT VENTRICLE: Right ventricular end-diastolic volume: ??163 mL. Right ventricular end-systolic volume: ??66 mL. Right ventricular ejection fraction: ??60%. Right ventricular stroke volume: ??97 mL Procedure Note Mickie Weiss MD - 12/10/2011 MRI FOR CARDIAC FUNCTION AND MORPHOLOGY: INDICATION: Evaluation for arrhythmogenic right ventricular dysplasia and hypertrophic cardiomyopathy. History of atrial fibrillation now in sinus rhythm. TECHNIQUE: Cardiac MRI for cardiac function and morphology. Axial andshort axis double inversion and triple inversion recovery images. Short axis,two chamber, three chamber, and four chamber functional imaging (FIESTA).Short and long axis images after intravenous contrast were acquired (20 mLMagnevist). Functional postprocessing was carried out at a separate workstation. FINDINGS: Comparison of double inversion and triple inversion recoveryimages does not reveal any fatty infiltration of the right ventricularmyocardium. No right ventricular wall motion abnormality. Moderate concentric myocardial hypertrophy of the left ventricle.Myocardial thickness during diastole measures 13 mm at the posterolateral wall and 18mm at the septum. Of note is an additional focal discrete thickening at the anteroseptal aspect of the base with a myocardial thickness of 25 mm. Amild flow void is seen in the subaortic region (series #503, image #164), whichmay be related to some degree of subaortic stenosis. Delayed postcontrastimages show a small focus of enhancement at the anteroseptal base, whichindicates a focus of fibrosis related to the hypertrophic cardiomyopathy. Dilatation of the aortic root with maximal diameter at the sinus ofValsalva of 40 mm. Sinotubular ridge measures 33 mm. Maximal diameter of theascending aorta is 39 mm. Proximal aortic arch measures 34 mm. Mid aortic archmeasures 21 mm. Normal caliber of the descending aorta. Vdry-ek-jwdwonlc dilatation of the left atrium and mild dilatation of theright atrium. Normal chamber size of the right ventricle and also stillborderline normal chamber size of the left ventricle. No global or segmental wallmotion abnormality of the left ventricle. Calculated left ventricular ejection fraction is 74%. Left ventricular mass is 174 g, which is at the upperlimit of normal for a male patient. No [...] 60%. Right ventricular stroke volume: 97 mL IMPRESSION IMPRESSION: 1. No evidence of right ventricular dysplasia. Right ventricular wallmotion and ejection fraction are within normal limits. 2. Moderate concentric left ventricular hypertrophy and discrete focal hypertrophy at the anteroseptal base. A subtle flow void within the left outflow tract may indicate mild narrowing, however, hemodynamicsignificance is not fully evaluated on this exam. A small focus of fibrosis related tothe hypertrophy is seen at the anteroseptal base of the left ventricle. 3. Dilatation of the ascending aorta, which measures 39 mm. 4. Mheq-ss-yuokgzxc dilatation of the left atrium and possible milddilatation of the right atrium. Robby Allen MD IMG MRI ORDERABLES documented in this encounter Visit Diagnoses Diagnosis Cardiomyopathy Other primary cardiomyopathies documented in this encounter Administered Medications Inactive Administered Medications - up to 3 most recent administrations Medication Order MAR Action Action Date Dose Rate Site gadopentetate dimeglumine (MAGNEVIST) injection 23 mL 23 mL (0.2 mL/kg/dose ? 113.4 kg), Intravenous, ONCE PRN, Per Protocol, Starting on Sun12/05/11 at 0635, 1 dose, Until Sun12/05/11 at 0944 Given 12/05/2011 9:44 AM EDT 20 mLs documented in this encounter Care Teams Copy Center Associate Relationship Specialty Start Date End Date Debbie Dukes MD [address] [place] [address] PCP - General 09/20/11 07/31/13 documented as of this encounter
--- OUTSIDE RECORDS SUMMARY | 2024-04-14 13:55 | XMS_ITS | Encounter Summary ---
Author Organization [facility] [place] [address] Care Team Providers Care Landscape Drafter Name Role Phone David Templeton MD Primary Care Provider [phone] Reason for Visit * Reason Comments Atrial Fibrillation Encounter Details Date Type Department Care Team (Late st Contact Info) Description 08/21/2011 2:10 PM EST Office Visit Cardiology at [address] [phone] Robby Allen MD [facility] [place] [address] Atrial fibrillation (Primary Dx) Discharge Disposition: Home Social History [...] Sign Reading Time Taken Comments Blood Pressure 128/80 08/21/2011 2:50 PM EST Lt arm sitting Pulse 68 08/21/2011 2:50 PM EST Regular Temperature - - Respiratory Rate - - Oxygen Saturation - - Inhaled Oxygen Concentration - - Weight 123.4 kg (272 lb) 08/21/2011 2:5 0 PM EST Height 181.6 cm (5' 11.5) 08/21/2011 2 :50 PM EST Body Mass Index 37.41 08/21/2011 2:50 PM EST documented in this encounter Progress Notes * Robby Allen MD - 08/21/2011 3:32 PM EST Subjective: Patient ID: Cole Mar is a 36 y.o. male returning for follow up for his AF admission from 08/02/11-08/05/11. Cardiac Problem List: 1) Paroxysmal Atrial Fibrillation, CHADs II score of 1(HTN). -He has a hx of PAF since at least 2003, however the actual burden is unknown as he is typically asymptomatic. 2) HTN HPI Since discharge patient has been seen both [...] then was told to discontinue these(lived in [place], [place] at the time). Following this most recent hospitalization, he was discharged on diltiazem CD 360mg daily, metoprolol 100mg daily and lisinopril 5mg daily. His CHADS2 score = 1(hypertension) and he was advised to take aspirin 325mg daily. He has not subsequently suffered any recurrent events. He specifically denies chest pain, dyspnea, pre-syncope or syncope since August 02. ROS See HPI above for cardiac ROS Objective: Physical Exam BP 128/80 Pulse 68 Ht 181.6 cm (5' 11.5) Wt 123.378 kg (272 lb) BMI 37.41 kg/m2 General: calm, well-appearing, NAD HEENT: NCAT, MMM, op clear, no erythema or exudate CV: Regular, physiologic S1, S2, no murmurs or gallops Pulm: clear to ausculation bilaterally Abd: soft, NT, ND, +NABS, Ext: warm, no c/c/e, 2+ PT BLE 12 Lead EKG: NSR @ 64; TN 132, QRS 104, QTc 416ms Echocardiogram: [facility] 08/02/2011 1. Moderate concentric left ventricular hypertrophy is observed. There is normal global left ventricular systolic function. Ejection fraction is estimated to be 70%. There are no left ventricular segmental wall motion abnormalities. 2. Right ventricular chamber size, wall thickness, and systolic function are within normal limits. 3. The cardiac valves appear structurally and functionally normal. Assessment and Plan: No problem-specific visit notes found for this encounter. Cardiac Problem List: 1) Paroxysmal Atrial Fibrillation, CHADs II score of 1(HTN). -He has a hx of PAF since at least 2003, however the actual burden is unknown as he is typically asymptomatic. 2) HTN Assessment: Mr. Cole Mar is a 36 y.o. male returning for follow up for his AF(CHADS2 score is 1(hypertension)) admission from 08/02/11-08/05/11 during which patient was hospitalized for a question of seizure, and was found to be in afib with RVR, spontaneously converted to sinus rhythm on diltiazem. Duringthis event he sustained significant troponin elevation to 0.19 and this met criteria for NSTEMI though this was felt to be due to demand ischemia. Echocardiogram showed preserved LVEF(70%) though review is suggestive of mild non-obstructive hypertrophic cardiomyopathy. He was discharged on diltiazem 360mg daily, metoprolol 100mg daily and lisinopril 5mg daily with 325mg of aspirin daily. Since discharge he has felt well without any recurrent symptoms. There was a plan outlined in his inpatient hospitalization notes to obtain a cardiac MRI as part ofan assessment for possible ARVD or other cardiac tissue abnormality. This was not accomplished prior to discharge andthe patient is not aware of it having been scheduled as an outpatient. The true etiology of his collapse remains unclear. Relatively normal echo, as he underwent an echocardiogram that showed preserved LVEF of 70%, concentric LVH and was suggestive of of non-obstructivehypertrophic cardiomyopathy. and no evidence of ventricular arrythmia which is encouraging but not conclusive. A cardiac MRI and cardiac stress imaging study would be helpful in stratifying cardiac risk. I had an extensive discussion with patient regarding his Atrial Fibrillation and we discussed the goals of therapy including symptom control, prevention of tachymyopathy and prevention of thromboembolism along with recommendations regarding rate control vs rhythm control strategies and particular discussion regarding antiarrhythmic therapy(AAD rx) vs consideration of catheter ablation(PVI ablation) in the future if indicated. Patient understands the risks and benefits of each of these options as explained to him again today and we have decided to continue with rate control option as patient feels the interruptions in BB therapy last month around time of other non cardiac testing. Patient isnot a candidate for PVI ablation at this time but should be considered if she continues to be symptomatic and rate control is not effective or rhythm control cannot be tolerated. Patient understands these options and we have discussed them again today. We also discussed her increased risk, CHADs II vascular score of 1(HTN) and therefore will continuewith ASA for now although we have discussed the potential benefits and risks of anticoagulation(whether with new agents such as dabigatran or conventional coumadin). Plan and Patient Instructions: CMRI to eval hypertrophy as discussed above will be arranged in next 1-2 months TSH and fasting lipid profile with next lab draw at time of our next follow up in 3-6 months. >25 min of this 30 minute visit dedicated to direct patient counseling(including patient education, diagnostic results or recommended studies as above, risk factor modification, compliance with treatment, instructions as well as risks and benefits for management regarding the above issues; namely septal hypertrophy with PAF, HTN, and ASA vs antiocoagulation for prevention of thromboembolism. documented in this encounter Plan of Treatment Not on file documented as of this encounter Visit Diagnoses Diagnosis Atrial fibrillation- Primary documented in this encounter Care Teams Landscape Drafter Relationship Specialty Start Date End Date David Templeton MD [address] [place] [address] PCP - General 08/01/11 09/19/11 documented as of this encounter
--- OUTSIDE RECORDS SUMMARY | 2024-04-14 13:55 | XMS_ITS | Encounter Summary ---
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 Date/Time Encounter Type Encounter Description Reason Provider Source Dec 31, 2023 09:30 AM OFFICE O/P EST MOD 30 MIN PRIMARY CARE/MEDICINE ICD-10-CM I86.8 Varicose veins of other specified sites NATE BOLANOS [place] Encounter Template Text not used by [place] Assessments - Encounter Diagnoses This section includes the primary and secondary diagnoses documented for the Encounter. Date/Time Primary/Secondary Diagnosis Diagnosis Name Provider Source Dec 31, 2023 10:21 AM PRIMARY Varicose veins of other specified sites NATE BOLANOS [facility] Dec 31, 2023 10:21 AM SECONDARY Essential (primary) hypertension NATE BOLANOS [facility] Dec 31, 2023 10:21 AM SECONDARY Other seizures NATE BOLANOS [facility] Dec 31, 2023 10:21 AM SECONDARY Other specified hypothyroidism NATE BOLANOS [facility] Plan of Treatment: Future Appointments (+ 6 months) and Future Tests (+/- 45 days) The Plan of Treatment section includes future care activities for the patient from all [facility] treatmentfacilities. This section includes future appointments and future orders which are active, pending or scheduled. Future Appointments This section includes appointments that were scheduled to occur 6 months from the date of the Encounter, up to a maximum of 20 appointments. The data comes from all [place] treatment facilities. Appointment Date/Time Appointment Type Appointme nt Facility Name Jan 14, 2024 10:30 AM [place] [facility] Mar 05, 2024 12:37 PM [place]UL[place]ORY [place] [facility] Mar 11, 2024 08:00 AM AMBULATORY [place] [facility] Mar 11, 2024 09:30 AM AMBULATORY [place] [facility] Apr 02, 2024 12:30 PM [place] [facility] Apr 04, 2024 10:00 AM [place] [facility] Apr 07, 2024 09:45 AM AMBULATORY - NONE [facility] Apr 08, 2024 11:15 AM [place] [facility] Apr 09, 2024 10:30 AM AMBULATORY [place] [facility] Apr 10, 2024 09:15 AM [place]BUL[place]ORY [place] [facility] Apr 10, 2024 09:30 AM [place] [facility] Apr 10, 2024 12:00 PM [place]BUL[place]ORY [place] [facility] Apr 10, 2024 01:00 PM [place] [facility] Apr 14, 2024 07:00 AM AM[place]ORY [place] [facility] Apr 15, 2024 10:45 AM [place] [facility] Apr 21, 2024 11:00 AM [place] [facility] Jun 11, 2024 09:00 AM [place] [facility] Jun 18, 2024 09:00 AM [place] [facility] Jun 25, 2024 09:00 AM [place]ORY [place] [facility] Active, Pending, and Scheduled Orders This section includes a listing of several types of active, pending, and scheduled orders, including clinic medications orders, diagnostic test orders, procedure orders and consult orders; where the start date of the order is 45 days before the date of the Encounter or [facility] The data comes from all [place] treatment facilities. Test Date/Time Test Type Test Details Facility Name Dec 31, 2023 10:27 AM Consult Order [facility] ATIENT [facility] [employer] Lab Results: +/- 30 days of the encounter This section includes the Chemistry and Hematology Lab Results on record with [facility] for the patient. Radiology Reports and Pathology Reports are provided separately, in subsequent sections. Lab Results This section contains the Chemistry/Hematology Results that were resulted 30 days before or 30 daysafter the date of the Encounter. Date/Time Source Result Type Result - Unit Interpretation Reference Range Comment Dec 31, 2023 10:06 AM [facility] LAMOTRIGINE(Q) Specimen Type: SERUM Comment: This test was developed and its analytical performance characteristics have been determined by [facility], [place]. It has not been cleared or approved by the U.S. Food and Drug Administration. This assay has been validated pursuant to the CLIA regulations and is used for clinical purposes. Test Performed by [facility], [facility], [address] [place] [address] Leland Gamble M.D., Ph.D., Director of Laboratories , CLIA [id number] Ordering Provider: NATE BOLANOS Report Released Date/Time: Dec 31, 2023 09:36 AM Reporting Lab: [facility] [address] [facility] [phone] Performing Lab: [facility] [id number] [place] [address] LAMOTRIGINE(Q) 4.8 ug/mL 2.5-15.0 Dec 31, 2023 10:06 AM [facility] LIPOPROTEIN CHOLESTEROL FRACT. PANEL Specimen Type: PLASMA Comment: , Tests performed on [facility] SN:[id number]). Ordering Provider: NATE BOLANOS Report Released Date/Time: Dec 20, 2023 11:26 AM Reporting Lab: [facility] [address] [facility] [address] Performing Lab: [facility] [address] [facility] [address] CHOLESTEROL 171 mg/dL 0-200 TRIGLYCERIDE 55 mg/dL 0-150 HDL CHOLESTEROL 60 mg/dL >40 LDL CHOLESTEROL (CALC) 100 mg/dL 0-129 Dec 31, 2023 10:06 AM [facility] CBC NO DIFF Specimen Type: BLOOD No comment entered. Ordering Provider: NATE BOLANOS Report Released Date/Time: Dec 20, 2023 11:26 AM Reporting Lab: [facility] [address] [facility] [address] Performing Lab: [facility] [address] [facility] [address] WBC 6.2 10*3/uL 4.5-11.0 RBC 5.13 10*6/uL 4.23-5.66 HGB 16.3 g/dL 12.8-17 HEMATOCRIT 47.6 39.2-50.4 MCV 92.8 fL 82-99 MCH 31.8 pg 26.2-32.6 MCHC 34.2 g/dL 30.8-35.1 PLT 263 10*3/uL 140-360 MPV 9.9 fL 9.2-12.4 RDW 11.8 L 12.0-16.0 Dec 31, 2023 10:06 AM [facility] LIVER PROFILE Specimen Type: PLASMA Comment: , Tests performed on [facility] SN:[id number] (405). Ordering Provider: NATE BOLANOS Report Released Date/Time: Dec 20, 2023 11:26 AM Reporting Lab: [facility] [address] [facility] [address] Performing Lab: [facility] [address] [facility] [address] PROTEIN, TOTAL 7.8 g/dL 6.0-8.5 ALBUMIN 4.3 g/dL 3.2-5.0 BILIRUBIN, TOTAL 0.4 mg/dL 0.2-1.2 ALKALINE PHOSPHATASE 144 U/L 40-150 ALT(SGPT) 37 U/L 7-52 AST(SGOT) 30 U/L 5-34 FIB-4 SCORE 0.92 <2.67 Dec 31, 2023 10:06 AM [facility] P4 GLU,BUN,CREAT,LYTES,CA Specimen Type: PLASMA Comment: , Tests performed on [facility] SN:[id number] (405). Ordering Provider: NATE BOLANOS Report Released Date/Time: Dec 20, 2023 11:26 AM Reporting Lab: [facility] [address] [facility] [address] Performing Lab: [facility] [address] [facility] [address] UREA NITROGEN 20 mg/dL 7-25 SODIUM 137 mmol/L 135-145 POTASSIUM 4.6 mmol/L 3.5-5.0 CHLORIDE 105 mmol/L 100-110 CARBON DIOXIDE 21 mmol/L 20-30 ANION GAP 11 4-16 GLUCOSE 86 mg/dL 65-100 CREATININE 1.00 mg/dL 0.50-1.50 CALCIUM 10.3 mg/dL 8.5-10.5 eGFR(CKD-EPI 2020) >90 mL/min See_Commen t Dec 31, 2023 10:06 AM [facility] GLYCOHEMOGLOBIN (A1C ONLY) Specimen Type: BLOOD Comment: , Tests performed on [employer] [facility] SN:[id number] (405) Values obtained from A1C measurements can vary. For typical A1C assays, a reported value of 7.0 could actually be between 6.72 and 7.28 if measured by a reference method. A reported value of 9.0 could actually be between 8.73 and 9.27. Ref: http://www.ngsp. org/CAPdata.asp Ordering Provider: NATE BOLANOS Report Released Date/Time: Dec 20, 2023 11:26 AM Reporting Lab: [facility] [address] [facility] [address] Performing Lab: [facility] [address] [place] [phone] HEMOGLOBIN A1C 5.3 4.0-5.6 Dec 31, 2023 10:06 AM [facility] DILANTIN Specimen Type: SERUM Comment: LAST DOSE 8:00 AM 12/31/23 , Tests performed on [employer] [facility] SN:[id number] (405). Ordering Provider: NATE BOLANOS Report Released Date/Time: Dec 31, 2023 09:36 AM Reporting Lab: [facility] [address] [facility] [address] Performing Lab: [facility] [address] [place] [phone] DILANTIN 19.7 ug/mL 10.0-20.0 Dec 31, 2023 10:06 AM [facility] TSH Specimen Type: SERUM Comment: , Tests performed on [employer] SN:[id number] (405) TSH within normal limits. Reflex testing not required. Ordering Provider: NATE BOLANOS Report Released Date/Time: Dec 31, 2023 09:37 AM Reporting Lab: [facility] [address] [facility] [address] Performing Lab: [facility] [address] [facility] [address] TSH 3.45 u[IU]/mL 0.35-5.00 Dec 06, 2023 08:00 AM [facility] OCCULT BLOOD FIT X1 SCREEN([facility]) Specimen Type: FECES Comment: Tests performed on [employer](405) Ordering Provider: NATE BOLANOS Report Released Date/Time: Nov 07, 2023 01:34 PM Reporting Lab: [facility] [address] [facility] [address] Performing Lab: [facility] [address] [facility] [address] OCCULT BLOOD(FIT)#1 OF 1([facility]) Negative Negative Advance Directives: All historical and current Section Date Range: From patient's date of to the date document was created. This section includes ALL of a patient's completed or amended [facility] Advance and Rescinded Directives. The entries below indicate that a directive exists for the patient, but an actual copy is not included with this document. The data comes from all [place] facilities. Date Advance Directives Provider Source May 18, 2021 ADVANCE DIRECTIVE RICHARD DAN [facility] Encounter Notes: All associated encounter notes This section contains the clinical notes associated to the Encounter. Date/Time Encounter Note(s) Provider Source Dec 31, 2023 09:10 AM PRIMARY CARE OUTPA TIENT NOTE: LOCAL TITLE: PRIMARY CARE CLINIC VISIT STANDARD TITLE: PRIMARY CARE OUTPATIENT NOTE DATE OF NOTE: DEC 31, 2023@09:10 ENTRY DATE: DEC 31, 2023@09:10:21 AUTHOR: NATE BOLANOS EXP COSIGNER: URGENCY: STATUS: COMPLETED PRIMARY CARE VISIT [place] [facility] Primary Care provider via telehealth in the following clinic: 12/31/2023 09:30 LIT-V01 [facility] PACT 08 PT Please see JLV for clinic note at: Maryjane PORTILLO, Maryjane [place] /garrick/ NATE BOLANOS M.D Signed: 12/31/2023 10:21 NATE BOLANOS [facility]
--- OUTSIDE RECORDS SUMMARY | 2024-04-14 13:55 | XMS_ITS | Encounter Summary ---
Author Organization [facility] [place] [address] Care Team Providers Care [employer] Principal Name Role Phone Angelia Crespo MD Primary Care Provider [phone] Encounter Details Date Type Department Care Team (Latest Contact Info) Description 08/01/2011 6:03 PM EST - 08/05/2011 1:17 PM EST Hospital Encounter Intermediate [place] [address] Shashi Bennett MD [facility] [address] [place] [address] Robby Allen MD [facility] [place] [address] Arya Kuhn MD [facility] [address] [place] [address] Atrial fibrillation with rapid ventricular response Discharge Disposition: Home Social History Tobacco Use Types Packs/Day Years Used Date Smoking Tobacco: Never Alcohol Use Standard Drinks/Week Comments Yes 0 (1 standard drink = 0.6 oz pur e alcohol) occasional glass of wine Sex and Gender Information Value Date Recorded Sex Assigned at Not on file Gender Identity Not on file Sexual Orientation Not on file documented as of this encounter Last Filed Vital Signs Vital Sign Reading Time Taken Comments Blood Pressure 144/93 08/05/2011 8:26 AM EST Pulse 81 08/05/2011 8:26 AM EST Temperature 36.4 ??C (97.5 ??F) 08/05/2011 8:26 AM ES T Respiratory Rate 18 08/05/2011 8:26 AM EST Oxygen Saturation 98% 08/05/2011 8:26 AM EST Inhaled Oxygen Concentration - - Weight 117.4 kg (258 lb 13.1 oz) 08/05/2011 6:10 AM EST Height 182.9 cm (6') 08/01/2011 6:29 PM EST Body Mass Index 35.1 08/01/2011 6:29 PM EST documented in this encounter Discharge Instructions * Patient Instructions* Derrell Zaman Jr. - 08/04/2011 3:01 PM EST You were treated for atrial fibrillation; you medication changes are listed in your discharge papers. You were also assessed by neurology for your seizures-you have several follow-up appointments listed below. For the EEG study is is important that you: 1-Stay up 2 hours later than lara the night before the test 2-Wake up early the day of the test 3-DO NOT drink coffee, tea or soft drinks with caffeine the day of the study 4-Have someone drive you to and from the appointment Anti-coagulation follow up: N/A Call your doctor if: Chest pain, shortness of breath, pain or swelling in legs occurs. If you have non-emergent questions between now and the time of your follow up appointments: During 8am-5pm Sunday through Sunday call [phone] to speak with a nurse in the cardiology clinic All other times call [phone] and ask to speak to the manager division personal injury litigation paralegal. Return to work: No restrictions Driving: We recommend that you do not drive for 6 months after having a seizure; this is for your safety as well as your passengers and others on the road. Follow up Appointments: PCP: Aug 10 at 2:00pm ANGELIA CRESPO MD [address] / [place] [address] Institutional Research Director: SunAug 21 at 2:30pm Dr. Robby Allen [facility] [phone] Neurology: Neurology will contact you with appointment date and time Dr. Soto [facility] 3[facility] [phone] EEG Aug 08 at 12:30pm [facility] [phone] Electrophysiology: Aug 15, at 1:[address] Francois Gomez [facility] [phone] Home oxygen therapy: N/A Arrangements for VNA/home care: none * Attachments The following attachments cannot be sent through Care Everywhere. * ATRIAL FIBRILLATION: AFTER YOUR VISIT (FIJIAN) documented in this encounter Medications at Time of Discharge Medication Sig Dispensed Refills Start Date End Date aspirin (ENTERIC COATED ASPIRIN) 325 mg EC tablet Take 1 tablet by mouth daily. 30 tablet 3 08/05/2011 lisinopril (PRINIVIL;ZESTRIL) 5 mg tablet Take 5 mg by mouth daily. lamoTRIgine (LAMICTAL) 25 mg tablet Take 1 tablet by mouth daily for 12 days. 12 tablet 0 08/05/2011 08/17/2011 lamoTRIgine (LAMICTAL) 25 mg tablet Take 1 tablet by mouth 2 times daily for 14 days. 28 tablet 0 08/05/2011 08/19/2011 lamoTRIgine (LAMICTAL) 25 mg tablet Take 2 tablets by mouth 2 times daily for 14 days. 56 tablet 0 08/05/2011 08/19/2011 lamoTRIgine (LAMICTAL) 25 mg tablet Take 3 tablets by mouth 2 times daily for 14 days. 84 tablet 0 08/05/2011 08/19/2011 lamoTRIgine (LAMICTAL) 100 mg tablet Take 1 tablet by mouth 2 times daily for 30 days. 60 tablet 0 08/05/2011 09/04/2011 metoprolol succinate (TOPROL-XL) 100 mg XL tablet Take 1 tablet by mouth daily. 30 tablet 1 08/05/2011 09/04/2011 phenytoin (DILANTIN) 100 mg ER capsule Take 200 mg by mouth every evening. 11/16/2011 documented as of this encounter Progress Notes * Lorena Loomis RN - 08/05/2011 4:31 PM EST Care management O: CRC confirmed with medical team that patient was not being discharged on Dabigatron. Patient medications were reviewed with nursing and there were no unusual medications that should cause concern with payment or receiving them. A: Patient ready for discharge today. P: Nursing was to call if any questions or concerns arose regarding discharge. * Arya Kuhn MD - 08/05/2011 11:35 AM EST Brief Day of Discharge Progress Note S: Converted to sinus rhythm. Rate well controlled. No complaints this AM O Filed Vitals: 08/05/11 0826 BP: 144/93 Pulse: 81 Temp: 36.4 ??C (97.5 ??F) Resp: 18 Exam noted for sinus rhythm. Otherwise unchanged Labs unremarkable A/P: Rate well controlled on current regimen. Will follow up cardiology for possible HOCM and further rate control. See DC summary for further details CARDIOLOGY ATTENDING NOTE Patient: Cole Mar Date of Service: 08/05/2011 Date of Admission: 08/01/2011 Length of Stay Hospital Day 4 days Please see the above note by Dr. Bills for details. I have interviewed and examined the patient independently and I concur with the assessment and plan. The case was discussed on cardiology rounds and we reviewed the plan of care with the team and patient. PROBLEMS: Active Hospital Problems Diagnoses ??? Atrial fibrillation with rapid ventricular response New Paroxysmal AFib, rapid VR when in afib Normal LV function EF= 70% Thickened Septum, ? HOCM On diltiazem drip-->Diltiazem Intermittent afib/sinus History of hypothyroidism, on replacement, normal TSH ??? Obesity ??? Possible Hypertrophic cardiomyopathy History of HTN HCM, non obstructive, EF~ 65=75% Echo 2004 Septal hypertrophy with WEST Echo 2005 Septal hypertrophy with obstruction at rest or exertion, no ischemia Grandfather of heart condition mid 50s 2 children, healthy, no work up ??? seizure disorder Long standing Followed by Neurology MRI- IMPRESSION: Several small foci of T2 hyperintensity in the deep white matter of the brain several of which are periventricular in location. Differential includes prior injury, demyelination, as well as possibly ischemic injury. Correlate with clinical symptoms. No evidence of mesiotemporal sclerosis.When compared with the previous study, there is no appreciable change. Resolved Hospital Problems Diagnoses Date Resolved Pertinent PE findings: Vital signs stable, remains in sinus rhythm. Stable blood pressure on current medical regimen Pertinent Laboratory findings: reviewed Interim Events and Discussion: He remained stable and in sinus rhythm on the current medical regimen. He is anxious to go home. His physical exam is otherwise unremarkable. He is stable for discharge with followup planned for cardiology. Further workup regarding his concentric LVH and possible HCM we'll proceed the signs and symptoms to be aware furthermore she evaluation was discussed. He will continue on aspirin as we elected not to commit him to long-term anticoagulation with his low CHADS2 score. Time Spent: 15 minutes related to direct bedside evaluation, discussion and education and coordinating care. Arya Kuhn MD, [facility] Card[facility] * Derrell Zaman Jr. - 08/04/2011 9:06 PM EST Inpatient Cardiology Progress Note Patient Name: Cole Mar Service: S2 Responsible Attending: Arya Kuhn MD Reason for continued hospitalization: Evaluation and management of arrhythmia / atrial fibrillation Active Problems: Active Hospital Problems Diagnoses ??? Atrial fibrillation with rapid ventricular response New Paroxysmal AFib, rapid VR when in afib Normal LV function EF= 70% Thickened Septum, ? HOCM On diltiazem drip-->Diltiazem Intermittent afib/sinus History of hypothyroidism, on replacement, normal TSH ??? Obesity ??? Possible Hypertrophic cardiomyopathy History of HTN HCM, non obstructive, EF~ 65=75% Echo 2004 Septal hypertrophy with WEST Echo 2005 Septal hypertrophy with obstruction at rest or exertion, no ischemia Grandfather of heart condition mid 50s 2 children, healthy, no work up ??? seizure disorder Long standing Followed by Neurology MRI- IMPRESSION: Several small foci of T2 hyperintensity in the deep white matter of the brain several of which are periventricular in location. Differential includes prior injury, demyelination, as well as possibly ischemic injury. Correlate with clinical symptoms. No evidence of mesiotemporal sclerosis.When compared with the previous study, there is no appreciable change. Resolved Hospital Problems Diagnoses Date Resolved Interval History: Converted to sinus rhythm with diltiazem yesterday and transitioned to PO dilt, but back in afib off and on overnight and this am. MRI per neuro recs. Today he denies any CP, palpitations, SOB, n/v/d. Telemetry: HR: 85-165, intermittent atrial fibrillation Physical Exam: Vital Signs: Last value Range last 24 hrs Temperature Temp: 36.4 ??C (97.5 ??F) Temp: [36.4 ??C (97.5 ??F)-36.6 ??C (97.9 ??F)] Heart Rate Heart Rate: 84 Heart Rate: [84-102] Blood Pressure BP: 115/81 mmHg BP: (115-188)/(81-97) Respiratory Rate Resp: 18 Resp: [16-18] SpO2 SpO2: 96 % SpO2: [95 %-98 %] Physical Exam Gen: AAOX3, NAD HEENT: EOMI, Anicteric sclera, OP clear with mmm. Dysconjugate gaze. Neck: Supple with normal ROM CV: Regular rhythm with rate ~80. Resp: CTAB, Nl respiratory effort Abd: Soft, NT, ND, NABS EXT: Pulses 2/4 BUE/BLE. No significant CHARANJIT. Skin: No rashes, sores or ulcers Neuro: Nonfocal, Moving all 4 extremities equally Lab Comments: No new labs today Pertinent Radiographic/Diagnostic Results: No new tests Assessment: Cole Mar is a 35 y.o. male with poorly controlled seizure disorder and temporally associated atrial fibrillation with RVR. His dilantin dose appears to be adequate, but he is not well controlled. Insulin sz activity might be associated with autonomic instability and this might tie together his sz so and cardiac issues. Diltiazem alone does not appear to be effective at controlling rhythm; will adjust dose and add metoprolol. No need for cardioversion at the moment. #Seizure disorder -Phenytoin plus lamotrigine per neuro recs-thank you -Plan to f/u with neuro post d/c #Afib with RVR -Increase dilt to 360mg qday -Metoprolol 12.5q6; titrate as needed for rate control -Hold cardioversion for now #HTN -HCTZ -Lisinopril #Hypothyroidism -Levothyroxine 200mcg #HLD -atorvastatin - #Prophy -Lovenox #Dispo: anticipate d/c home tomorrow with either coumadin or dabigatran for anticoagulation. Derrell Zaman MD, PhD Pager [phone] (personal) [phone] (team) * Arya Kuhn MD - 08/04/2011 9:32 AM EST CARDIOLOGY ATTENDING NOTE- ON SERVICE Patient: Cole Mar Date of Service: 08/04/2011 Date of Admission: 08/01/2011 Length of Stay Hospital Day 3 days Please see the above note by Dr. Zaman for details. I have interviewed and examined the patient independently and I concur with the assessment and plan. The case was discussed on cardiology rounds and we reviewed the plan of care with the team and patient. The patient presents with paroxysmal atrial fibrillation, with rapid VR, with spontaneous conversion to NSR, mildly symptomatic, with underlying structural heart disease with hypertrophy and septal hypertrophy noted on prior and current echocardiograms, with no obvious obstruction. Low CHADS2 score, but HCM should be considered for both prognostic, and treatment implications. A cardiac MRI and possible genetic testing could be PROBLEMS: Active Hospital Problems Diagnoses ??? Atrial fibrillation with rapid ventricular response New Paroxysmal AFib, rapid VR when in afib Normal LV function EF= 70% Thickened Septum, ? HOCM On diltiazem drip-->Diltiazem Intermittent afib/sinus History of hypothyroidism, on replacement, normal TSH ??? Obesity ??? Possible Hypertrophic cardiomyopathy History of HTN HCM, non obstructive, EF~ 65=75% Echo 2004 Septal hypertrophy with WEST Echo 2005 Septal hypertrophy with obstruction at rest or exertion, no ischemia Grandfather of heart condition mid 50s 2 children, healthy, no work up ??? seizure disorder Long standing Followed by Neurology MRI- IMPRESSION: Several small foci of T2 hyperintensity in the deep white matter of the brain several of which are periventricular in location. Differential includes prior injury, demyelination, as well as possibly ischemic injury. Correlate with clinical symptoms. No evidence of mesiotemporal sclerosis.When compared with the previous study, there is no appreciable change. Resolved Hospital Problems Diagnoses Date Resolved Pertinent PE findings: Pleasant, in good spirits, pt in NSR during my PE Lungs- clear Cardiac- Reg, normal S1 and S2, no gallop, I / systolic murmur. JVP ~ 7-8 cm Abd- benign Extrema- no edema, good pulses. Pertinent Laboratory findings: Procedure: Transthoracic Echocardiogram BP= 100/69 SUMMARY: 1. Moderate concentric left ventricular hypertrophy is observed. There is normal global left ventricular systolic function. Ejection fraction is estimated to be 70%. There are no left ventricular segmental wall motion abnormalities. 2. Right ventricular chamber size, wall thickness, and systolic function are within normal limits. 3. The cardiac valves appear structurally and functionally normal. 4. See remainder of report for additional findings. Interim Events and Discussion: Recurrent PAfib with RVR, minimally significant, with probable underlying structural heart disease with the noted hypertrophy, and FEI that could be either HTN cardiovascular disease, or HCM with only 1 possible family member with early CV disease (paternal GF). Will increase rate control therapy, c ontinue ASA, and as CHADS2 score is low, defer full anticoagulation. The patient may benefit from an outpt MRI, and depending on result, possible genetic testing. References: Loyd Olmedo et al, 2011 ACCF/AHA Guideline for the Diagnosis and Treatment of Hypertrophic Cardiomyopathy. Circulation September 05, 2011 Time Spent: 20 minutes related to direct bedside evaluation, discussion and education and coordinating care. Arya Kuhn MD, [facility] Cardiology * Joi Marley - 08/03/2011 3:39 PM EST CRC received report from Cardiac Team this morning that patient would not need Dabigatran upon discharge. No there need identified at this time. Addendum: Should patient need Dabigatran it will need a prior authorization by phone MD to call [phone].Discussed with Omar Nunes today and Ayra Kuhn is the attending this week-end. NIA * Linsey Kuhn RN - 08/02/2011 11:27 PM EST 08/02/11 2315 Adult Vital Signs Pulse 152 Heart Rate Source Monitor BP 96/60 mmHg BP Method Automatic BP Location (NBP) Left arm Cardiac Rhythm SVT Dr. Reddy paged and notified of pt's HR. Pt states he can feel palpitations and I have some chestpressure, it's hard to take a deep breath. Lying in bed resting. Denies c/o lightheadedness/dizziness, encouraged pt to ring for RN if symptoms change. Dr. Reddy to call back with plan. Will monitor. 2324: Pt broke out of SVT and spontaneously converted to NSR, HR 95. Dr. Reddy aware. Pt resting in bed, encouraged to report any further change in symptoms. EKG done to confirm NSR. 0600: Pt back into AFib, HR 1teens -130s, asymptomatic, was previously sleeping. Dr. Reddy paged and aware, no new orders at this time, plan to wait for primary team. Diltiazem gtt remains at 15 mg/hour. Report given to next RN, pt encouraged to call for RN if symptoms return. NIA * Joi Marley - 08/02/2011 4:57 PM EST Office of Care Management (OCM) / Clinical Cutlery Grinder (CRC)/ Initial Assessment Discussed patient with Provider Team and in multidisciplinary discharge-planning rounds. Reviewed record and interviewed patient, his Mother and step-father. Introduced/reviewed CRC role and services accepted. REASON for HOSPITALIZATION: Seizures, atrial fibrillation. PREVIOUS FUNCTIONAL STATUS : Independnent. CURRENT FUNCTIONAL STATUS: Independent. SOCIAL/FAMILY SUPPORTS: Patient has very supportive family his Mother and step- father here at his bedside. INSURANCE COVERAGE / FINANCIAL ISSUES: [place] [facility]. He uses [facility] [place]. [phone]. Cardiac Team will forward script for Dabigatran today, will need to check with them ralph for possible prior authorization need. Patient gave permission to contact his pharmacy. CURRENT HOME/COMMUNITY SERVICES/EQUIPMENT: DME: None reported. Home Health Agency: None reported. Other: None reported. POTENTIAL DISCHARGE NEEDS: Need to check on Dabigatran and co-pays for discharge medications. Please see above. TRANSPORTATION: Family. PLAN: Will continue to monitor progress, follow for continuity of care and assist with discharge planning while hospitalized. Annie Garzon - 08/02/2011 4:54 PM EST Lovenox started at 3:30. Heparin DC at 4:00. Patient understands plan of procedures. Patient is resting comfortably in bed and denies CP. Annie Garzon - 08/02/2011 4:52 PM EST Diltiazem drip titrated up to 15 mg/hr. BP 100/58. HR 113. Will continue to monitor. Annie Garzon - 08/02/2011 4:48 PM EST Diltiazem drip titrated up to 10 mg/hr. BP 120/62. HR 150. Will continue to monitor. Annie Garzon - 08/02/2011 4:33 PM EST Started diltiazem drip at 2:15. Starting dose is at 5 mg/hr Baseline HR is 156. Will continue to monitor. * Robby Allen MD - 08/02/2011 1:28 PM EST Inpatient Cardiology Progress Note Patient Name: Cole Mar Service: S2 Responsible Attending: Robby Allen MD Reason for continued hospitalization: Evaluation and management of arrhythmia / atrial fibrillation Active Problems: Active Hospital Problems Diagnoses ??? Atrial fibrillation with rapid ventricular response Resolved Hospital Problems Diagnoses Date Resolved Interval History: Admitted via transfer from OSH for NSTEMI and Afib with RVR. HR overnight 105-165with metoprolol boluses. This am he reports some occasional feeling of he heart beating, but is largely unaware of his tachycardia. Denies any CP, SOB, n/v/d. Telemetry: HR: 105-165 atrial fibrillation Physical Exam: Vital Signs: Last value Range last 24 hrs Temperature Temp: 36.7 ??C (98.1 ??F) Temp: [36.6 ??C (97.9 ??F)-36.9 ??C (98.4 ??F)] Heart Rate Heart Rate: 146 Heart Rate: [98-146] Blood Pressure BP: 104/70 mmHg BP: (98-109)/(55-78) Respiratory Rate Resp: 20 Resp: [14-20] SpO2 SpO2: 96 % SpO2: [95 %-96 %] Physical Exam Gen: AAOX3, NAD HEENT: EOMI, Anicteric sclera, OP clear with mmm. Dysconjugate gaze. Neck: Supple with normal ROM, JVP@7-8cmH2O CV: Irregularly irregular rhythm with rate ~120 Resp: CTAB, Nl respiratory effort Abd: Soft, NT, ND, NABS EXT: Pulses 2/4 BUE/BLE. No significant CHARANJIT. Skin: No rashes, sores or ulcers Neuro: Nonfocal, Moving all 4 extremities equally Lab Comments: CBC, CMP unremarkable. Cardiac biomarkers 0.21/220, ProBNP 940, TSH normal Dilantin lvl15 normal Pertinent Radiographic/Diagnostic Results: I have independently visualized the following studies: ECG: CXR: ECHO: Assessment: Cole Mar is a 35 y.o. male with poorly controlled seizure disorder and temporally associated atrial fibrillation with RVR. His dilantin dose appears to be adequate, but he is not well controlled. Insulin sz activity might be associated with autonomic instability and this might tie together his sz so and cardiac issues. No need for cath today-will plan for CHRIS/cardioversion tomorrow given that it is not entirely clear how long he has been in afib. #Seizure disorder -Neuro consult for guidance #Afib with RVR -Start dilt gtt for rate control -Plan for CHRIS cardioversion tomorrow (NPO at me) Derrell Zaman MD, PhD Pager [phone] (personal) [phone] (team) Cardiology Attending Progress Note Addendum: I have seen and examined the patient, providing horne components as outlined below. I have reviewed the resident???s above note; my evaluation of the patient is below: Major Issues Addressed; Atrial Fibrillation of unknown duration HTN Seizure disorder moderately controlled on prior Dilantin therapy with prior with no recent neurology follow up Plan: CHRIS-DCCV tomorrow morning, with plan for Lovenox bridge to Coumadin vs Dabigatran ASA therapy to be discussed after 4 weeks of anticoagulation post DCCV * Annie Do - 08/02/2011 11:57 AM EST Patient had an increase in HR up to the 180's while performing personal hygiene in the bathroom. Had patient sit on bed. Patient denies feeling any CP or dizziness. 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 Continue to monitor. NIA * Annie Do - 08/02/2011 9:31 AM EST Patient is alert and oriented x 4. Heart rate has been sustained in the 130's with intermittent increases into the 160's. Patient states he does not feel the increases in heart rate this morning. Sent message to care team regarding the increases in HR. Continue to monitor. documented in this encounter H&P Notes * Jonathon Kaminski MD - 08/02/2011 4:14 AM EST Cardiology Admission H&P Patient Name: Cole Mar Date of : 1975 Age: 35 y.o. Hospital Admit Date: 08/01/2011 Inpatient Attending: Dr. Allen PCP: ANGELIA CRESPO MD Presenting Diagnosis/Chief Complaint: NSTEMI/ a-fib with RVR/ s/p seizure// Chest pain after seizure episode Active Problem List: Active Hospital Problems Diagnoses ??? Atrial fibrillation with rapid ventricular response Resolved Hospital Problems Diagnoses Date Resolved History of Present Illness: HPI Comments: Mr. Mar is a 35 year old Gentleman with PMHx notable for seizure (dx about 8 years ago), paroxysmal a-fib (first discovered about 8 years ago during his seizure and had briefly taken coumadin for a couple months after and later discontinued), HTN, Hypothyroidism, no significant cardiac history [place] [facility] after sustaining a seizure earlier this Sunday morning and subsequently developing chest pain. He describes having a grand mal seizure at about 7:15 AM while inbed and blacking out. His seizure was witnessed by his 2 sons who knew about their father's history of seizures (he usually has about 2 seizures a year and had his last seizure about 6 months ago).He says he has been compliant on his medications. At about 7:50 PM, he describes feeling substernal chest pressure/ constant/ ranging from 3/10 to 8/10/ worse with deep inspiration with no particularrelieving factors. ROS: +light-headedness/ dizziness/ +chronic dry cough. Denies: SOB/ palpitations/ headache/ n/v/ or fever. Upon arrival to [facility] ED, he was found to be in atrial fibrillation at 150 bpm. He had some mild chest pressure and was started on diltiazem, a bolus and then infusion with inadequate rate control. Ibutilide was used in attempt to chemically cardiovert however this was ineffective with a drop in his SBP to the 70s. He was admitted to [facility] with atrial fibrillation with RVR. The possibility of DCCV was discussed however his troponin returned back at 1.75 and the decision was made to transfer to [facility] for further management of NSTEMI in the setting of what appeared like new onset a-fib with RVR.Incidentally, his dilantin level was found to be within limits as per OSH records. Mr. Mar stays active with his 2 sons and enjoys activities like deer hunting/ walking/ hiking. Heworks part-time for a [employer]. He is and had been for 14 years. He has never smoked in his life. His grandfather of an apparent AL at the age of 50. His father (HTN) and mother (DM) are relatively healthy with no known cardiac history. Past Medical History: Past Medical History Diagnosis Date ??? Hypertension ??? Hypothyroidism ??? Erectile dysfunction ??? Seizure ??? Atrial fibrillation Surgical History/Problems: Past Surgical History Procedure Date ??? Cholecystectomy ??? Hernia repair Significant Family History: Family History Problem Relation Age of Onset ??? Diabetes Mother ??? Cerebrovasular Accident Mother Social History: History Social History ??? Marital Status: Spouse Name: N/A Number of Children: N/A ??? Years of Education: N/A Occupational History ??? Not on file. Social History Main Topics ??? Smoking status: Never Smoker ??? Smokeless tobacco: Not on file ??? Alcohol Use: Yes occasional glass of wine ??? Drug Use: No ??? Sexually Active: Other Topics Concern ??? Not on file Social History Narrative ??? No narrative on file REVIEW OF SYSTEMS: Review of Systems Constitutional: Negative for fever, chills, diaphoresis, activity change, appetite change, fatigue and unexpected weight change. Respiratory: Negative for shortness of breath. Cardiovascular: Positive for chest pain. Negative for palpitations and leg swelling. Gastrointestinal: Negative for abdominal pain and abdominal distention. Neurological: Positive for dizziness, seizures and light-headedness. Negative for syncope, weaknessand headaches. Medications: Current facility-administered medications ordered in [facility] Medication Dose Route Frequency Provider Last Rate Last Dose ??? levothyroxine (SYNTHROID) tablet 200 mcg 200 mcg Oral QAM Jonathon Kaminski MD ??? hydrochlorothiazide (HYDRODIURIL) tablet 12.5 mg 12.5 mg Oral Daily Jonathon Kaminski MD ??? lisinopril (PRINIVIL;ZESTRIL) tablet 5 mg 5 mg Oral Daily Jonathon Kaminski MD ??? phenytoin (DILANTIN) ER capsule 100 mg 100 mg Oral QAM Jonathon Kaminski MD ??? phenytoin (DILANTIN) ER capsule 200 mg 200 mg Oral QPM Jonathon Kaminski MD Last Dose: 200 mg at110/01/10 2200 ??? sodium chloride 0.9 % flush 5 mL 5 mL Intravenous Q12H Jonathon Kaminski MD Last Dose: 5 mL at 08/01/115 ??? nitroGLYcerin (NITROSTAT) SL tablet 0.4 mg 0.4 mg Sublingual Q5 Min PRN Jonathon Kaminski MD ??? bisacodyl (DULCOLAX) suppository 10 mg 10 mg Rectal Daily PRN Jonathon Kaminski MD ??? diaZEPam (VALIUM) tablet 5 mg 5 mg Oral Once Jonathon Kaminski MD ??? diphenhydrAMINE (BENADRYL) tablet 25 mg 25 mg Oral Once Jonathon Kaminski MD ??? aspirin EC tablet 325 mg 325 mg Oral Daily Jonathon Kaminski MD ??? atorvastatin (LIPITOR) tablet 40 mg 40 mg Oral Daily with dinner Jonathon Kaminski MD ??? heparin (porcine) injection 2,000-4,000 Units 2,000-4,000 Units Intravenous BOLUS HEPARIN PP Jonathon Kaminski MD ??? heparin 25,000 units in dextrose 5% 500 mL infusion 350-7,000 Units/hr Intravenous Continuous Jonathon Kaminski MD 20 mL/hr (08/02/11 0300) Last Dose: 1000 Units/hr at 08/02/11 0300 ??? sodium chloride 0.9% infusion 100 mL/hr Intravenous Continuous Jonathon Kaminski MD ??? metoprolol (LOPRESSOR) injection 5 mg 5 mg Intravenous Once Jonathon Kaminski MD Last Dose: 5 mgat 08/01/11 2300 ??? metoprolol (LOPRESSOR) 5 mg/5 mL injection ??? DISCONTD: sodium chloride 0.9% 500 mL IV bolus Intravenous Once Jonathon Kaminski MD ??? DISCONTD: heparin (porcine) injection 2,000-4,000 Units 2,000-4,000 Units Intravenous BOLUS HEPARIN PP Jonathon Kaminski MD ??? DISCONTD: heparin 25,000 units in dextrose 5% 500 mL infusion 350-7,000 Units/hr Intravenous Continuous Jonathon Kaminski MD No current Epic-ordered outpatient prescriptions on file. Allergies: No Known Allergies PHYSICAL EXAM: Last set of vital signs: BP 98/68 Pulse 108 Temp(Src) 36.8 ??C (98.2 ??F) (Oral) Resp 14 Ht182.9 cm (6') Wt 122.5 kg (270 lb 1 oz) BMI 36.63 kg/m2 SpO2 95% Physical Exam Constitutional: He is oriented to person, place, and time. No distress. Eyes: No scleral icterus. Neck: No JVD present. Cardiovascular: Exam reveals no gallop and no friction rub. No murmur heard. Irregularly irregular/ +tachycardic Pulmonary/Chest: He has no wheezes. He has no rales. Abdominal: He exhibits no distension. No tenderness. Musculoskeletal: He exhibits no edema and no tenderness. Neurological: He is alert and oriented to person, place, and time. Skin: Skin is warm and dry. He is not diaphoretic. No pallor. Diagnostics: I have independently visualized the following studies: EKG - a-fib at 133 bpm/ no ST-T changes consistent with ischemia CXR - pending Echo at OSH (as per limited records) 01/02 - LAE/ EF - 65% LABS: Recent Results (from the past 24 hour(s)) APTT Component Value Range ??? PTT 25 25 - 37 (sec) CBC (WITH DIFF) Component Value Range ??? WBC 6.7 4.0 - 10.0 (x10(3)/mcL) ??? RBC 4.83 4.63 - 6.08 (x10(6)/mcL) ??? Hemoglobin 16.0 13.7 - 17.5 (gm/dL) ??? Hematocrit 44.9 40.0 - 51.0 (%) ??? MCV 93.0 (*) 79.0 - 92.0 (fL) ??? MCH 33.1 (*) 25.6 - 32.2 (pg) ??? MCHC 35.6 32.0 - 36.5 (gm/dL) ??? Platelets 208 145 - 370 (x10(3)/mcL) ??? RDWSD 44.8 35.0 - 46.0 (fL) ??? RDWCV 13.1 10.9 - 14.4 (%) ??? MPV 9.8 9.0 - 12.0 (fL) BASIC METABOLIC PANEL (NON-FASTING) Component Value Range ??? Glucose Lvl 110 60 - 199 (mg/dL) ??? BUN 9 (*) 10 - 20 (mg/dL) ??? Creatinine 0.85 0.80 - 1.50 (mg/dL) ??? Sodium 139 135 - 145 (mmol/L) ??? Potassium 3.9 3.5 - 5.0 (mmol/L) ??? Chloride 106 98 - 107 (mmol/L) ??? CO2 26 22 - 31 (mmol/L) ??? Anion Gap 7 5 - 15 (mmol/L) ??? Calcium 8.9 8.5 - 10.5 (mg/dL) ? ? Estimated GFR >60 >=60 MAGNESIUM Component Value Range ??? Magnesium 0.89 0.69 - 1.07 (mmol/L) PHOSPHORUS Component Value Range ??? Phosphorus 2.7 2.5 - 4.5 (mg/dL) TSH Component Value Range ??? TSH 2.95 0.27 - 4.20 (mcIU/mL) PRO-BRAIN NATRIURETIC PEPTIDE Component Value Range ? ? ProBNP 940 (*) <=125 (pg/mL) HEPATIC FUNCTION PANEL Component Value Range ??? Total Protein 6.9 6.4 - 8.3 (gm/dL) ??? Albumin 3.8 3.2 - 5.2 (gm/dL) ??? AST 38 0 - 39 (unit/L) ??? ALT 46 0 - 55 (unit/L) ??? Alk Phos 156 (*) 40 - 120 (unit/L) ??? Total Bilirubin 0.5 0.2 - 1.3 (mg/dL) ??? Bili, Direct 0.1 0.0 - 0.3 (mg/dL) PROTHROMBIN TIME Component Value Range ??? PT 14.4 12.3 - 14.7 (sec) ??? INR 1.1 0.9 - 1.1 CARDIAC ENZYMES Component Value Range ? ? Troponin-T 0.21 (*) <=0.03 (ng/mL) ??? CK, Total 220 (*) 0 - 200 (unit/L) DIFFERENTIAL, AUTOMATED Component Value Range ??? Neutrophils % 70.2 34.0 - 71.0 (%) ??? Neutr Abs (ANC) 4.68 1.50 - 6.30 (x10(3)/mcL) ??? Lymphocytes % 19.6 19.0 - 53.0 (%) ??? Lymphocytes Abs 1.3 1.0 - 3.6 (x10(3)/mcL) ??? Monocytes % 8.2 4.0 - 13.0 (%) ??? Monocyte Abs 0.6 0.2 - 1.0 (x10(3)/mcL) ??? Eosinophils % 1.8 0.0 - 7.0 (%) ??? Eosinophils Abs 0.1 0.0 - 0.5 (x10(3)/mcL) ??? Basophils % 0.1 0.0 - 2.0 (%) ??? Basophils Abs 0.0 0.0 - 0.2 (x10(3)/mcL) ??? Immature Gran % 0.10 0.00 - 0.66 (%) ??? Halima Gran Abs 0.01 0.00 - 0.05 (x10(3)/mcL) ASSESSMENT: Given an unclear history of drop in SBP in the 70s from ?diltiazem vs ibutilide?, have elected to control his HR with prn IV pushes of metoprolol. His HR is much better controlled in the high 90s/ low 100s tonight with SBP in high 90s/low 100s. His complaint of chest pain is worrisome as this is new for him in the setting of positive cardiac biomarker at both hospitals (STEVEN score - 4, higher risk; risk factors - 1 pt, known ASA use - 1pt, +ve biomarkers - 1 pt, +chest pain episodes - 1 pt). While the possibility of elevated troponins from demand ischemia exists, it appears less likely given the magnitude of elevation at OSH (1.75). He will likely benefit from cardiac catheterization in the. After this has been addressed, he shall be considered for CHRIS/DCCV as the time of onset of his atrial fibrillation is unclear. Will order a dilantin level during this admission (his level at OSH appeared to be within normal limits). He has been chest pain free/ HD stable since arrival. 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 Denies question regarding follow up or meds * Discharge Summary - Antoine Bills - 08/03/2011 10:19 AM EST Inpatient Cardiology - Discharge Summary Patient Name: Cole Mar Patient Age: 35 y.o. Birthdate: 1975 Admit date: 08/01/2011 Discharge date : 08/03/2011 Attending Physician: Arya Kuhn MD Discharge Diagnoses (Hospital Problems) and Secondary Diagnoses (Chronic Problems): #Atrial fibrillation with RVR #Seizure disorder #Possible hypertrophic cardiomyopathy, cardiac MRI planned for outpatient Operations/Major Procedures: Operations: TRANSESOPHAGEAL ECHOCARDIOGRAM; CARDIOVERSION Other Major Procedures: None History of Presentation: Mr. Mar is a 35 year old Gentleman with PMHx notable for seizure (dx about 8 years ago), paroxysmal a-fib (first discovered about 8 years ago during his seizure and had briefly taken coumadin for acouple months after and later discontinued), HTN, Hypothyroidism, no significant cardiac history [place] [facility] [place] [facility] after sustaining a seizure earlier this Sunday morning and subsequently developing chest pain. He describes having a grand mal seizure at about 7:15 AM while in bed and blacking out. His seizure was witnessed by his 2 sons who knew about their father's history of seizures(he usually has about 2 seizures a year and had his last seizure about 6 months ago). He says he has been compliant on his medications. At about 7:50 PM, he describes feeling substernal chest pressure/ constant/ ranging from 3/10 to 8/10/ worse with deep inspiration with no particular relieving factors. ROS: +light-headedness/ dizziness/ +chronic dry cough. Denies: SOB/ palpitations/ headache/ n/v/ or fever. Upon arrival to [facility] ED, he was found to be in atrial fibrillation at 150 bpm. He had some mild chest pressure and was started on diltiazem, a bolus and then infusion with inadequate rate control. Ibutilide was used in attempt to chemically cardiovert however this was ineffective with a drop in his SBP to the 70s. He was admitted to [facility] with atrial fibrillation with RVR. The possibility of DCCV was discussed however his troponin returned back at 1.75 and the decision was made to transfer to [facility] [place] further management of NSTEMI in the setting of what appeared like new onset a-fib with RVR.Incidentally, his dilantin level was found to be within limits as per OSH records. Mr. Mar stays active with his 2 sons and enjoys activities like deer hunting/ walking/ hiking. Heworks part-time for a [employer]. He is and had been for 14 years. He has never smoked in his life. His grandfather of an apparent AL at the age of 50. His father (HTN) and mother (DM) are relatively healthy with no known cardiac history. Hospital Course: #Atrial fibrillation with rapid ventricular response, with elevated cardiac biomarkers Heart rate on admission was 108 with BP of 98/68. TSH was normal. His initial troponin-t at [facility] was 0.08 with CK of 45; He was started on heparin, loaded with plavix and started on ASA, atorvastatinin anticipation of catheterization for NSTEMI; beta-blockers and AVELINO inhibitors were held given marginal BP's. With regard to the report of very low SBP with diltiazem and ibutilide, his tachycardia was initially managed with metoprolol 5mg boluses. The following morning he was started on a diltiazem drip up to 15ml/hr. His EKG showed no evidence of ischemia, and it was felt that his troponin leak with normal CK were more reflective of strain from tachycardia rather than ischemia/infarction. He was then scheduled for CHRIS cardioversion the following morning. Overnight he continued on the diltiazem gtt with metoprolol boluses to maintain adequate rate control. On the morning of 08/03 he converted back to sinus rhythm, and it was elected to defer cardioversion and manage his atrial fibrillation medically with metoprolol and diltiazem. He did have transient intermittent afib thus rate control agents were titrated. #Possible hypertrophic cardiomyopathy Patient was noted to have some suggestion of septal hypertrophy on his echocardiogram. Due to this structural heart disease, certain antiarrhythmic agents were not possible. He will follow up with cardiology with a cardiac MRI in the future. #Seizure Disorder Dilantin level on admission was normal. Given the reports of poorly controlled seizures, neurology was consulted for management guidance. During his hospitalization Lamictal was added to his home dose of dilantin. Outpatient brain imaging and EEG, along with neurology follow-up were further recommended. He did have an MRI brain performed here (see report below) #Hypertension His regimen was adjusted with above to include diltiazem, toprol and lisinopril on discharge. His hydrochlorothiazide was discontinued. Important Studies and Lab Data: Labs: Lab Results Component Value Date WBC 6.5 08/05/2011 HGB 19.0* 08/05/2011 HCT 50.6 08/05/2011 PLATELET 221 08/05/2011 Recent Labs Basename 08/01/11 2102 ??? INR 1.1 Lab Results Component Value Date NA 133* 08/03/2011 K 3.5 08/03/2011 CL 101 08/03/2011 CO2 23 08/03/2011 BUN 11 08/03/2011 CREATININE 0.82 08/03/2011 Recent Labs Basename 08/01/11 2102 ??? TSH 2.95 Recent Labs Basename 08/02/11 0533 ??? HA1C 4.9 Recent Labs Basename 08/02/11 1005 08/02/11 0533 08/01/11 2102 ??? CK 151 181 220* ??? TROPONINT 0.16* 0.19* 0.21* Lab Results Component Value Date CHLPL 148 08/02/2011 HDL 48 08/02/2011 CHOLHDL 3.1 08/02/2011 TRIG 73 08/02/2011 LDLCHOL 85 08/02/2011 Studies: PA AND LATERAL CHEST, 08/01/11: FINDINGS: There is no airspace consolidation, pneumothorax, or pleural effusion. Cardiomediastinal silhouette is unremarkable. Osseous structures are unremarkable. IMPRESSION IMPRESSION: No focal airspace disease. Transthoracic Echocardiogram, 08/02/2011: SUMMARY: 1. Moderate concentric left ventricular hypertrophy is observed. There is normal global left ventricular systolic function. Ejection fraction is estimated to be 70%. There are no left ventricular segmental wall motion abnormalities. 2. Right ventricular chamber size, wall thickness, and systolic function are within normal limits. 3. The cardiac valves appear structurally and functionally normal. 4. See remainder of report for additional findings. MRI brain Several small foci of T2 hyperintensity in the deep white matter of the brain several of which are periventricular in location. Differential includes prior injury, demyelination, as well as possibly ischemic injury. Correlate with clinical symptoms. No evidence of mesiotemporal sclerosis. When compared with the previous study, there is no appreciable change. Neurology Consult Note Assessment: Pt is a 35 y.o. Male with PMH of hypothyroidism, hypertension, A.fib with AVR, nonsichemic cardiomyopathy and seizure disorder (on Dilantin) admitted to Cardiology service for NSTEMI. Neurology consulted for seizures. Pt has episodic seizure episodes every 6-7 months. EEG would be of benefit at this time. Dilantin level is therapeutic at 15 so would not increase dilantin either. AED Monotherapy may not be the best option at this time so would consider adding Lamictal (as outlined below) to current Dilantin regimen (100 mg am, 200 mg hs). Pt would also benefit from 3-T MRI brain with Epilepsy protocol and f/u with outpatient Neurology clinic in 4-6 weeks Recommendation: - Continue current Dilantin regimen (100 mg AM, 200 mg hs) - Add Lamictal 25 mg for two weeks qd, then 25 mg two weeks bid, then 50 mg two weeks bid, then 75 two weeks bid, and finally 100 bid thereafter. - 3-T MRI brain with Epilepsy protocol -EEG - Contact outpatient Neurology for f/u (with Dr. Annie Soto) in about 4-6 weeks Pending Studies and Lab Data: None Discharge Conditions/Prognosis: Afebrile, hemodynamically stable and free of chest pain at rest and with ambulation. Tolerating adequate PO intake. Sinus rhythm on discharge. Discharge to: Home Discharge Medications: Current Discharge Medication List New Meds Details !! lamoTRIgine (LAMICTAL) 25 mg Take 25 mg by mouth daily. Qty: 12 tablet Refills: 0 !! lamoTRIgine (LAMICTAL) 25 mg Take 25 mg by mouth 2 times daily. Qty: 28 tablet Refills: 0 !! lamoTRIgine (LAMICTAL) 50 mg Take 50 mg by mouth 2 times daily. Qty: 56 tablet Refills: 0 !! lamoTRIgine (LAMICTAL) 75 mg Take 75 mg by mouth 2 times daily. Qty: 84 tablet Refills: 0 !! lamoTRIgine (LAMICTAL) 100 mg Take 100 mg by mouth 2 times daily. Qty: 60 tablet Refills: 0 metoprolol succinate (TOPROL-XL) 100 mg Take 100 mg by mouth daily. Qty: 30 tablet Refills: 1 !! - Potential duplicate medications found. Please discuss with provider. Continued medications with revised dosing Details DILTiazem (CARDIZEM CD) 360 mg Take 360 mg by mouth daily. Qty: 30 capsule Refills: 1 Continued medications, unchanged Details lisinopril (PRINIVIL;ZESTRIL) 5 mg Take 5 mg by mouth daily. Qty: Refills: !! phenytoin (DILANTIN) 100 mg Take 100 mg by mouth every morning. Qty: Refills: !! phenytoin (DILANTIN) 200 mg Take 200 mg by mouth every evening. Qty: Refills: levothyroxine (SYNTHROID) 200 mcg tablet 175MC Tablet(s), PO, Once daily Qty: Refills: citalopram (CELEXA) 20 mg tablet Qty: Refills: !! - Potential duplicate medications found. Please discuss with provider. Medications STOPPED hydrochlorothiazide (HYDRODIURIL) 12.5 mg metoprolol (LOPRESSOR) 100 mg tablet Updated Allergies/ADRs: No Known Allergies Follow-up Recommendations for Providers: -Please titrate rate control agents as indicated for atrial fibrillation -Please follow up echocardiographic findings for possible HOCM. Cardiac MRI pending Instructions Given to Patient at Discharge: Provider Instructions You were treated for atrial fibrillation; you medication changes are listed in your discharge papers. You were also assessed by neurology for your seizures-you have several follow-up appointments listed below. For the EEG study is is important that you: 1-Stay up 2 hours later than lara the night before the test 2-Wake up early the day of the test 3-DO NOT drink coffee, tea or soft drinks with caffeine the day of the study 4-Have someone drive you to and from the appointment Anti-coagulation follow up: N/A Call your doctor if: Chest pain, shortness of breath, pain or swelling in legs occurs. If you have non-emergent questions between now and the time of your follow up appointments: During 8am-5pm Sunday through Sunday call [phone] to speak with a nurse in the cardiology clinic All other times call [phone] and ask to speak to the manager division personal injury litigation paralegal. Return to work: No restrictions Driving: We recommend that you do not drive for 6 months after having a seizure; this is for your safety as well as your passengers and others on the road. Follow up Appointments: PCP: Neto Aug 10 at 2:00pm ANGELIA CRESPO MD [facility] [address] [facility] [id number] Institutional Research Director: SunAug 21 at 2:30pm Dr. Robby Allen [facility] Card[facility] 4a [phone] Neurology: Neurology will contact you with appointment date and time Dr. Soto [facility] Neurology 3c [phone] EEG Aug 08 at 12:30pm [facility] 3c [phone] Electrophysiology: Aug 15, at 1:[address] Francois Gomez [facility] [phone] Home oxygen therapy: N/A Arrangements for VNA/home care: none General Instructions None Future Appointments and Orders Future Appointments: Provider: Department: Dept Phone: Center: 08/08/2011 12:30 PM [facility] [phone] [facility] 08/15/2011 1:10 PM ABDULAZ[facility] Mc[facility] [phone] [facility] Joint Appt Nurse Cardiology, RN [facility] [phone] [facility] 08/21/2011 2:10 PM Robby Allen MD [facility] Cardiology [phone] [facility] Joint Appt Nurse Cardiology, RN [facility] [phone] [facility] Provider Contact Information: Discharge References/Attachments: Discharge References/Attachments None * Plan of Care - Deonte Ferguson RN - 08/02/2011 4:06 PM EST Problem: COPD, Chronic Bronchitis/Emphysema (Adult) Goal: Prevent/Manage Potential Problems Based on my scope of practice, I assessed for signs and symptoms of potential problems that could be present as documented. * Consult Note - Annie Soto MD - 08/02/2011 1:33 PM EST Neurology Consult Note Patient name:Cole Mar Date of :1975 Admit date: 08/01/2011 Attending: Dr. Soto CC: Seizures We have been asked to see Cole Mar by Dr. Bennett for seizures HPI: Cole Mar is a 35 y.o. Male with PMH of hypothyroidism, hypertension, A.fib with AVR, nonsichemic cardiomyopathy and seizure disorder (on Dilantin) admitted to Cardiology service for NSTEMI. Neurology consulted for seizures. Per pt, pt has GTC seizure yesterday AM with aura of ronnie vu and lasted for a couple of minutes. Pt first had seizures ~ eight years ago for which he was started on Keppra. Keppra was d/c'd three years ago (SE: increased agitation) at which time Dilantin was started. Currently on Dilantin 100 mg Am, 200 mg Hs. At present, pt reports having 1-2 GTC seizures a year. No postictal state. Has not affected life at home or at work. However is afraid of having a seizure while driving although only has a seizure every six months. Reports tongue biting and urinary incontinence in past but not in the past couple of years. Currently driving. Admitted to [facility] [place] VEEG monitoring in 2007, but no interictal or epileptic activity captured at that time. MRI brain at that time was unremarkable. Last saw neurology (Dr. Soto) in 2007. Denies n/v/f/c/cp/COLON/visual changes/cough /numbness/tingling. Past Medical History: Hypothyroidism Hypertension A. Fib with AVR Nonischemic cardiomyopathy Seizure disorder (on dilantin) PSH: Cholecystectomy Hernia repair FH: No family hx of seizures, strokes, CA, or other neurological disorders SH: Denies EtOH, Tobacco, or IVDU Employed , lives in [place] with two kids Medications: ??? clopidogrel 600 mg Oral Once ??? enoxaparin 120 mg Subcutaneous Q12H YOMI ??? DISCONTD: enoxaparin 1 mg/kg/dose Subcutaneous Q12H YOMI ??? levothyroxine 200 mcg Oral QAM ??? hydrochlorothiazide 12.5 mg Oral Daily ??? lisinopril 5 mg Oral Daily ??? phenytoin 100 mg Oral QAM ??? phenytoin 200 mg Oral QPM ??? sodium chloride 0.9 % 5 mL Intravenous Q12H ??? aspirin 325 mg Oral Daily ??? atorvastatin 40 mg Oral Daily with dinner ??? metoprolol 5 mg Intravenous Once ??? metoprolol ??? DISCONTD: bolus IV fluid Intravenous Once ??? DISCONTD: diaZEPam 5 mg Oral Once ??? DISCONTD: diphenhydrAMINE 25 mg Oral Once Allergies: No Known Allergies Physical Exam: Patient Vitals in the past 8 hrs: BP Temp Temp src Pulse Resp SpO2 08/02/11 1100 104/70 mmHg 36.7 ??C (98.1 ??F) Oral 146 20 96 % 08/02/11 0700 100/69 mmHg 36.9 ??C (98.4 ??F) Oral 113 20 96 % General: alert, NAD HEENT: oral mucosa moist, no thrush, no carotid bruits, no thyromegaly, no lymphadenopahty Heart: Irregularly irregular, tachycardic, S1S2 no murmur Lungs: CTAB symmetric expansion Abd: soft, nontender, nondistended Ext: no edema, adequate pulses Neuro exam: MSE: alert, oriented to person, place, time, situation, follows simple and complex commands, speechfluent with no dysarthria, able to repeat a sentence, names objects. CN: PERRL, no nystagmus, EOMI, facial sensation intact, no facial droop or asymmetry, tongue protrudes midline, uvula and palate elevate symmetrically, trap symmetric strength bilaterally Motor: 5/5 RUE 5/5 LUE 5/5 RLE 5/5 LLE Normal bulk and tone Reflexes 2+ bilat biceps, brachioradialis, triceps 2+ bilat patella, achilles downgoing toes Sensation: intact light touch, vibration, proprioception, and temperature diffusely Coordination: intact finger nose finger and IONA, no dysmetria, no tremor Gait: did not assess Labs: Recent Results (from the past 24 hour(s)) APTT Component Value Range ??? PTT 25 25 - 37 (sec) CBC (WITH DIFF) Component Value Range ??? WBC 6.7 4.0 - 10.0 (x10(3)/mcL) ??? RBC 4.83 4.63 - 6.08 (x10(6)/mcL) ??? Hemoglobin 16.0 13.7 - 17.5 (gm/dL) ??? Hematocrit 44.9 40.0 - 51.0 (%) ??? MCV 93.0 (*) 79.0 - 92.0 (fL) ??? MCH 33.1 (*) 25.6 - 32.2 (pg) ??? MCHC 35.6 32.0 - 36.5 (gm/dL) ??? Platelets 208 145 - 370 (x10(3)/mcL) ??? RDWSD 44.8 35.0 - 46.0 (fL) ??? RDWCV 13.1 10.9 - 14.4 (%) ??? MPV 9.8 9.0 - 12.0 (fL) BASIC METABOLIC PANEL (NON-FASTING) Component Value Range ??? Glucose Lvl 110 60 - 199 (mg/dL) ??? BUN 9 (*) 10 - 20 (mg/dL) ??? Creatinine 0.85 0.80 - 1.50 (mg/dL) ??? Sodium 139 135 - 145 (mmol/L) ??? Potassium 3.9 3.5 - 5.0 (mmol/L) ??? Chloride 106 98 - 107 (mmol/L) ??? CO2 26 22 - 31 (mmol/L) ??? Anion Gap 7 5 - 15 (mmol/L) ??? Calcium 8.9 8.5 - 10.5 (mg/dL) ? ? Estimated GFR >60 >=60 MAGNESIUM Component Value Range ??? Magnesium 0.89 0.69 - 1.07 (mmol/L) PHOSPHORUS Component Value Range ??? Phosphorus 2.7 2.5 - 4.5 (mg/dL) TSH Component Value Range ??? TSH 2.95 0.27 - 4.20 (mcIU/mL) PRO-BRAIN NATRIURETIC PEPTIDE Component Value Range ? ? ProBNP 940 (*) <=125 (pg/mL) HEPATIC FUNCTION PANEL Component Value Range ??? Total Protein 6.9 6.4 - 8.3 (gm/dL) ??? Albumin 3.8 3.2 - 5.2 (gm/dL) ??? AST 38 0 - 39 (unit/L) ??? ALT 46 0 - 55 (unit/L) ??? Alk Phos 156 (*) 40 - 120 (unit/L) ??? Total Bilirubin 0.5 0.2 - 1.3 (mg/dL) ??? Bili, Direct 0.1 0.0 - 0.3 (mg/dL) PROTHROMBIN TIME Component Value Range ??? PT 14.4 12.3 - 14.7 (sec) ??? INR 1.1 0.9 - 1.1 CARDIAC ENZYMES Component Value Range ? ? Troponin-T 0.21 (*) <=0.03 (ng/mL) ??? CK, Total 220 (*) 0 - 200 (unit/L) DIFFERENTIAL, AUTOMATED Component Value Range ??? Neutrophils % 70.2 34.0 - 71.0 (%) ??? Neutr Abs (ANC) 4.68 1.50 - 6.30 (x10(3)/mcL) ??? Lymphocytes % 19.6 19.0 - 53.0 (%) ??? Lymphocytes Abs 1.3 1.0 - 3.6 (x10(3)/mcL) ??? Monocytes % 8.2 4.0 - 13.0 (%) ??? Monocyte Abs 0.6 0.2 - 1.0 (x10(3)/mcL) ??? Eosinophils % 1.8 0.0 - 7.0 (%) ??? Eosinophils Abs 0.1 0.0 - 0.5 (x10(3)/mcL) ??? Basophils % 0.1 0.0 - 2.0 (%) ??? Basophils Abs 0.0 0.0 - 0.2 (x10(3)/mcL) ??? Immature Gran % 0.10 0.00 - 0.66 (%) ??? Halima Gran Abs 0.01 0.00 - 0.05 (x10(3)/mcL) CBC (WITH DIFF) Component Value Range ??? WBC 6.8 4.0 - 10.0 (x10(3)/mcL) ??? RBC 5.04 4.63 - 6.08 (x10(6)/mcL) ??? Hemoglobin 16.6 13.7 - 17.5 (gm/dL) ??? Hematocrit 47.2 40.0 - 51.0 (%) ??? MCV 93.7 (*) 79.0 - 92.0 (fL) ??? MCH 32.9 (*) 25.6 - 32.2 (pg) ??? MCHC 35.2 32.0 - 36.5 (gm/dL) ??? Platelets 222 145 - 370 (x10(3)/mcL) ??? RDWSD 44.6 35.0 - 46.0 (fL) ??? RDWCV 13.1 10.9 - 14.4 (%) ??? MPV 9.9 9.0 - 12.0 (fL) HEMOGLOBIN A1C Component Value Range ??? Hemoglobin A1C 4.9 4.3 - 6.1 (%) ??? Est Avg Gluc 94 (mg/dL) BASIC METABOLIC PANEL (NON-FASTING) Component Value Range ??? Glucose Lvl 94 60 - 199 (mg/dL) ??? BUN 11 10 - 20 (mg/dL) ??? Creatinine 0.86 0.80 - 1.50 (mg/dL) ??? Sodium 140 135 - 145 (mmol/L) ??? Potassium 3.9 3.5 - 5.0 (mmol/L) ??? Chloride 104 98 - 107 (mmol/L) ??? CO2 28 22 - 31 (mmol/L) ??? Anion Gap 8 5 - 15 (mmol/L) ??? Calcium 8.8 8.5 - 10.5 (mg/dL) ? ? Estimated GFR >60 >=60 APTT Component Value Range ??? PTT 34 25 - 37 (sec) DIFFERENTIAL, AUTOMATED Component Value Range ??? Neutrophils % 69.2 34.0 - 71.0 (%) ??? Neutr Abs (ANC) 4.70 1.50 - 6.30 (x10(3)/mcL) ??? Lymphocytes % 21.0 19.0 - 53.0 (%) ??? Lymphocytes Abs 1.4 1.0 - 3.6 (x10(3)/mcL) ??? Monocytes % 7.5 4.0 - 13.0 (%) ??? Monocyte Abs 0.5 0.2 - 1.0 (x10(3)/mcL) ??? Eosinophils % 2.1 0.0 - 7.0 (%) ??? Eosinophils Abs 0.1 0.0 - 0.5 (x10(3)/mcL) ??? Basophils % 0.1 0.0 - 2.0 (%) ??? Basophils Abs 0.0 0.0 - 0.2 (x10(3)/mcL) ??? Immature Gran % 0.10 0.00 - 0.66 (%) ??? Halima Gran Abs 0.01 0.00 - 0.05 (x10(3)/mcL) LIPID PANEL (FASTING) Component Value Range ? ? Chol, Total 148 <=199 (mg/dL) ? ? Triglycerides 73 <=149 (mg/dL) ? ? HDL 48 >=40 (mg/dL) ? ? LDL Cholesterol 85 <=99 (mg/dL) ??? Chol/HDL Ratio 3.1 (ratio) CARDIAC ENZYMES Component Value Range ? ? Troponin-T 0.19 (*) <=0.03 (ng/mL) ??? CK, Total 181 0 - 200 (unit/L) GLUCOSE, RANDOM Component Value Range ??? Glucose Lvl 94 60 - 199 (mg/dL) GREEN TUBE HOLD Component Value Range ??? Green Hold Sample in lab. PHENYTOIN LEVEL, TOTAL Component Value Range ??? Phenytoin Lvl 15.0 10.0 - 20.0 (mg/L) APTT Component Value Range ??? PTT 35 25 - 37 (sec) CARDIAC ENZYMES Component Value Range ? ? Troponin-T 0.16 (*) <=0.03 (ng/mL) ??? CK, Total 151 0 - 200 (unit/L) Diagnostic Tests and Imaging: No neuroimaging at this admission Assessment: Pt is a 35 y.o. Male with PMH of hypothyroidism, hypertension, A.fib with AVR, nonsichemic cardiomyopathy and seizure disorder (on Dilantin) admitted to Cardiology service for NSTEMI. Neurology consulted for seizures. Pt has episodic seizure episodes every 6-7 months. EEG would be of benefit at this time. Dilantin level is therapeutic at 15 so would not increase dilantin either. AED Monotherapy may not be the best option at this time so would consider adding Lamictal (as outlined below) to current Dilantin regimen (100 mg am, 200 mg hs). Pt would also benefit from 3-T MRI brain with Epilepsy protocol and f/u with outpatient Neurology clinic in 4-6 weeks Recommendation: - Continue current Dilantin regimen (100 mg AM, 200 mg hs) - Add Lamictal 25 mg for two weeks qd, then 25 mg two weeks bid, then 50 mg two weeks bid, then 75 two weeks bid, and finally 100 bid thereafter. - 3-T MRI brain with Epilepsy protocol -EEG - Contact outpatient Neurology for f/u (with Dr. Annie Soto) in about 4-6 weeks Thank you for this consult Jared Christopher MD Pager [phone] Attending Physician Attestation I saw and evaluated the patient with Dr. Christopher (resident). I have reviewed the medical records and the patient's history during the visit and I agree with the details as written. My physical examination confirms the resident's findings. The assessment and plan were formulated in discussion with me at the time of the visit and I agree with them as documented. Annie Soto MD Painter Sign Maintenance of Neurology * Miscellaneous - Provider, Scanning - 08/01/2011 9:47 PM EST documented in this encounter Plan of Treatment Scheduled Orders Name Type Priority Associated Diagnoses Orde r Schedule EKG 12 Lead ECG STAT Atrial fibrillation with rapid ventricular response One Time for 1 Occurrences starting 08/01/2011 until 08/01/2011 documented as of this encounter Procedures Procedure Name Priority Date/Time Associated Diagnosis Comments BOARD WORKER SCAN 08/06/2011 11:51 AM EST DIFFERENTIAL, AUTOMATED Routine 08/05/2011 5:57 AM EST CBC (WITH DIFF) Routine 08/05/2011 5:57 AM EST MRI BRAIN WO CONTRAST Routine 08/03/2011 9:24 PM EST CMP W/FASTING GLUCOSE Routine 08/03/2011 11:31 AM EST DIFFERENTIAL, AUTOMATED Routine 08/03/2011 11:31 AM EST CBC (WITH DIFF) Routine 08/03/2011 11:31 AM EST EKG 12-LEAD STAT 08/02/2011 11:43 PM EST Atrial fibrillation with rapid ventricular response CARDIAC [place]YM[place] [place] STAT 08/02/2011 10:05 AM EST APTT STAT 08/02/2011 10:05 AM EST ECHOCARDIOGRAM TRANSTHORACIC Routine 08/02/2011 9:33 AM EST Atrial fibrillation with rapid ventricular response PHENYTOIN LEVEL, TOTAL STAT 1 7:15 AM EST DIFFERENTIAL, AUTOMATED Routine 08/02/2011 5:33 AM EST GREEN TUBE HOLD STAT 08/02/2011 5:33 AM EST CARDIAC ENZYMES [place] [place] STAT 08/02/2011 5:33 AM EST APTT STAT 08/02/2011 5:33 AM EST CBC (WITH DIFF) Routine 08/02/2011 5:33 AM EST HEMOGLOBIN A1C Routine 08/02/2011 5:33 AM EST GLUCOSE, RANDOM STAT 08/02/2011 5:33 AM EST LIPID PANEL (REFLEX DIRECT LDL) STAT 08/02/2011 5:33 AM EST BASIC METABOLIC PANEL (NON-FASTING) STAT 08/02/2011 5:33 AM EST XR CHEST PA AND LATERAL Routine 08/01/2011 9:37 PM EST EKG 12-LEAD STAT 08/01/2011 9:11 PM EST Atrial fibrillation with rapid ventricular response DIFFERENTIAL, AUTOMATED STAT 08/01/2011 9:02 PM EST CARDIAC ENZYMES [place] [place] STAT 08/01/2011 9:02 PM EST APTT STAT 08/01/2011 9:02 PM EST PROTHROMBIN TIME STAT 08/01/2011 9:02 PM EST CBC (WITH DIFF) STAT 08/01/2011 9:02 PM EST TSH STAT 08/01/2011 9:02 PM EST PHOSPHORUS STAT 08/01/2011 9:02 PM EST PRO-BRAIN NATRIURETIC PEPTIDE STAT 08/01/2011 9:02 PM EST MAGNESIUM STAT 08/01/2011 9:02 PM EST HEPATIC FUNCTION PANEL STAT 1 9:02 PM EST BASIC METABOLIC PANEL (NON-FASTING) STAT 08/01/2011 9:02 PM EST documented in this encounter Results * SCAN DOC: BOARD WORKER (08/06/2011 11:51 AM EST) Anatomical Region Laterality Modality Other Narrative 08/07/2011 1:01 PM EST Procedure Note Provider, Scanning - 08/06/2011 11:51 AM EST Scanning Provider MEDIA MGR SCAN EXT O RDR/RSLT * DIFFERENTIAL, AUTOMATED (08/05/2011 5:57 AM EST) Neutrophils % 59.5 34.0 - 71.0 % CERNER MILLENNIUM Neutr Abs (ANC) 3.86 1.50 - 6.30 x10(3)/mcL CERNER MILLENNIUM Lymphocytes % 23.9 19.0 - 53.0 % CERNER MILLENNIUM Lymphocytes Abs 1.6 1.0 - 3.6 x10(3)/mcL CERNER MILLENNIUM Monocytes % 11.2 4.0 - 13.0 % CERNER MILLENNIUM Monocyte Abs 0.7 0.2 - 1.0 x10(3)/mcL CERNER MILLENNIUM Eosinophils % 4.8 0.0 - 7.0 % CERNER MILLENNIUM Eosinophils Abs 0.3 0.0 - 0.5 x10(3)/mcL CERNER MILLENNIUM Basophils % 0.3 0.0 - 2.0 % CERNER MILLENNIUM Basophils Abs 0.0 0.0 - 0.2 x10(3)/mcL CERNER MILLENNIUM Immature Gran % 0.30 0.00 - 0.66 % CERNER MILLENNIUM Comment: Immature granulocytes(IG's)percentage and absolute count will include metamyelocytes, myelocytes, and promyelocytes. Blood smears from CBCs yielding IG's will be scanned manually for concordance. If this scan disagrees with the automated IG or if promyelocytes are noted, a manual differential will be performed. Halima Gran Abs 0.02 0.00 - 0.05 x10(3)/mcL CERNER MILLENNIUM Blood specimen (specimen) 08/05/2011 5:57 AM EST 08/05/2011 6:12 AM EST Jonathon Kaminski MD HEMATOLOGY ORDERABLE S CERNER MILLENNIUM * (ABNORMAL) CBC (with Diff) (08/05/2011 5:57 AM EST) WBC 6.5 4.0 - 10.0 x10(3)/mcL CERNER MILLENNIUM RBC 5.51 4.63 - 6.08 x10(6)/mcL CERNER MILLENNIUM Hemoglobin 19.0(H) 13.7 - 17.5 gm/dL CERNER MILLENNIUM Hematocrit 50.6 40.0 - 51.0 % CERNER MILLENNIUM MCV 91.8 79.0 - 92.0 fL CERNER MILLENNIUM MCH 34.5(H) 25.6 - 32.2 pg CERNER MILLENNIUM MCHC 37.5(H) 32.0 - 36.5 gm/dL CERNER MILLENNIUM Platelets 221 145 - 370 x10(3)/mcL CERNER MILLENNIUM RDWSD 42.7 35.0 - 46.0 fL CERNER MILLENNIUM RDWCV 12.9 10.9 - 14.4 % CERNER MILLENNIUM MPV 9.5 9.0 - 12.0 fL CERNER MILLENNIUM Blood specimen (specimen) 08/05/2011 5:57 AM EST 08/05/2011 6:12 AM EST Jonathon Kaminski MD HEMATOLOGY ORDERABLE S THERON COMER * MRI BRAIN WO CONTRAST (08/03/2011 9:24 PM EST) Anatomical Region Laterality Modality Head Magnetic Resonan ce 08/03/2011 9:24 PM EST Impressions 08/07/2011 8:42 PM EST IMPRESSION: Several small foci of T2 hyperintensity in the deep white matter of the brain several of which are periventricular in location. ??Differential includes prior injury, demyelination, as well as possibly ischemic injury. ?? Correlate with clinical symptoms. ??No evidence of mesiotemporal sclerosis. ?? When compared with the previous study, there is no appreciable change. Narrative 08/07/2011 8:42 PM EST MR OF THE BRAIN WITHOUT CONTRAST: INDICATION: ??3T epilepsy protocol. ??Recurrent seizures. ??Evaluate. ?? TECHNIQUE: ??Routine noncontrast MRI of the brain was performed using a seizure protocol. ?? FINDINGS: ??There are several small dots of T2 hyperintensity in the deep white matter of the brain. ??These are relatively nonspecific and can be seen in patient's with prior injury, or even mild periventricular leukomalacia. ??There is some minimal thinning of the posterior body of the corpus callosum. ?? There is no mass or mass effect. ?? Specific evaluation of the hippocampal regions shows no evidence of mesiotemporal sclerosis on either side. ??I do not see a definite cortical dysplasia or area of polymicrogyria. ??There are some prominent perivascular spaces noted. ?? Procedure Note Lamin Rich MD - 08/07/2011 MR OF THE BRAIN WITHOUT CONTRAST: INDICATION: 3T epilepsy protocol. Recurrent seizures. Evaluate. TECHNIQUE: Routine noncontrast MRI of the brain was performed using aseizure protocol. FINDINGS: There are several small dots of T2 hyperintensity in the deepwhite matter of the brain. These are relatively nonspecific and can be seen in patient's with prior injury, or even mild periventricular leukomalacia.There is some minimal thinning of the posterior body of the corpus callosum. There is no mass or mass effect. Specific evaluation of the hippocampal regions shows no evidence of mesiotemporal sclerosis on either side. I do not see a definite cortical dysplasia or area of polymicrogyria. There are some prominentperivascular spaces noted. IMPRESSION IMPRESSION: Several small foci of T2 hyperintensity in the deep white matter of thebrain several of which are periventricular in location. Differential includesprior injury, demyelination, as well as possibly ischemic injury. Correlate with clinical symptoms. No evidence of mesiotemporal sclerosis. When compared with the previous study, there is no appreciable change. Antoine Bills MD [facility] MRI ORDERABLES * DIFFERENTIAL, AUTOMATED (08/03/2011 11:31 AM EST) Neutrophils % 66.5 34.0 - 71.0 % CERNER MILLENNIUM Neutr Abs (ANC) 4.19 1.50 - 6.30 x10(3)/mcL CERNER MILLENNIUM Lymphocytes % 21.6 19.0 - 53.0 % CERNER MILLENNIUM Lymphocytes Abs 1.4 1.0 - 3.6 x10(3)/mcL CERNER MILLENNIUM Monocytes % 10.0 4.0 - 13.0 % CERNER MILLENNIUM Monocyte Abs 0.6 0.2 - 1.0 x10(3)/mcL CERNER MILLENNIUM Eosinophils % 1.4 0.0 - 7.0 % CERNER MILLENNIUM Eosinophils Abs 0.1 0.0 - 0.5 x10(3)/mcL CERNER MILLENNIUM Basophils % 0.3 0.0 - 2.0 % CERNER MILLENNIUM Basophils Abs 0.0 0.0 - 0.2 x10(3)/mcL CERNER MILLENNIUM Immature Gran % 0.20 0.00 - 0.66 % CERNER MILLENNIUM Comment: Immature granulocytes(IG's)percentage and absolute count will include metamyelocytes, myelocytes, and promyelocytes. Blood smears from CBCs yielding IG's will be scanned manually for concordance. If this scan disagrees with the automated IG or if promyelocytes are noted, a manual differential will be performed. Halima Gran Abs 0.01 0.00 - 0.05 x10(3)/mcL CERNER MILLENNIUM Blood specimen (specimen) 08/03/2011 11:31 AM EST 08/03/2011 11:44 AM EST Jonathon Kaminski MD HEMATOLOGY ORDERABLE S THERON BIRCHENNIUM * (ABNORMAL) CMP w/fasting Glucose (08/03/2011 11:31 AM EST) Glucose Fasting 119(H) 65 - 99 mg/dL CERNER MILLENNIUM Comment: ?Fasting* Glucose Interpretive Criteria Normal ?65-99 mg/dL Impaired Fasting glucose ?100-125 mg/dL Consistent with Diabetes Mellitus ? >or= 126 mg/dL *Fasting is defined as no caloric intake for at least 8 hours In the absence of unequivocal hyperglycemia a plasma glucose value of >or= 126 mg/dL should be repeated on a subsequent day. Diagnosis and Classification of Diabetes Mellitus, Position Statement from the [place] [employer]. ??Diabetes Care, Volume 33, Supplement 1, Sep 2009 BUN 11 10 - 20 mg/dL CERNER MILLENNIUM Creatinine 0.82 0.80 - 1.50 mg/dL CERNER MILLENNIUM Sodium 133(L) 135 - 145 mmol/L CERNER MILLENNIUM Potassium 3.5 3.5 - 5.0 mmol/L CERNER MILLENNIUM Comment: Please note: ??Patients with WBC >100,000 may have falsely elevated Potassium levels. ??For accurate Potassium quantification in these patients send serum separator tube (gold top) for subsequent determinations. ??Contact the Clinical Chemistry Laboratory if there are any questions. Chloride 101 98 - 107 mmol/L CERNER MILLENNIUM CO2 23 22 - 31 mmol/L CERNER MILLENNIUM Anion Gap 9 5 - 15 mmol/L CERNER MILLENNIUM Calcium 9.7 8.5 - 10.5 mg/dL CERNER MILLENNIUM Comment:result rechecked- dm c Total Protein 7.9 6.4 - 8.3 gm/dL CERNER MILLENNIUM Albumin 4.1 3.2 - 5.2 gm/dL CERNER MILLENNIUM AST 24 0 - 39 unit/L CERNER MILLENNIUM ALT 41 0 - 55 unit/L CERNER MILLENNIUM Alk Phos 179(H) 40 - 120 unit/L CERNER MILLENNIUM Total Bilirubin 0.8 0.2 - 1.3 mg/dL CERNER MILLENNIUM Bili, Direct 0.2 0.0 - 0.3 mg/dL CERNER MILLENNIUM Estimated GFR >60 >=60 CERNER MILLENNIUM Comment: The National Kidney Disease Education Program (NKDEP) has recommended all laboratories report estimated GFR (eGFR) along with plasma creatinine measurements to assist you with recognition of early kidney disease. Caveats: ??Plasma creatinine should be at steady-state (unchanged within the past week). For patients multiply eGFR by 1.2.MDRD equation has not been validated for pediatric patients and is only valid for patients with age >= 18 years. At present, NKDEP does NOT recommend using the MDRD equation for drug dosing purposes and pharmacists should continue to use their current dosing methods. In addition, numerical eGFR values greater than 60 ml/min/1.73 square meters should be treated as > 60, and not an exact number due to greater inaccuracies at these higher values. Per NKDEP, they classify normal renal function as any GFR >60ml/min/1.73 square meters; chronic kidney disease when GFR <60, and renal failure when GFR <15. ??This calculation may not be valid for patients with atypical muscle mass (very lean or obese), acute renal failure, and in patients with diabetic kidney disease. References: http://nkdep.nih.gov/resources/NKDEP_Suggestn4Labs_0606_508.pdf http://www.kidney.org/professionals/kls/pdf/faq_gfr.pdf Blood specimen (specimen) 08/03/2011 11:31 AM EST 08/03/2011 11:44 AM EST Shashi Bennett MD CHEMISTRY ORDERABLE S THERON LOVEIUM * (ABNORMAL) CBC (with Diff) (08/03/2011 11:31 AM EST) WBC 6.3 4.0 - 10.0 x10(3)/mcL CERNER MILLENNIUM RBC 5.46 4.63 - 6.08 x10(6)/mcL CERNER MILLENNIUM Hemoglobin 18.2(H) 13.7 - 17.5 gm/dL CERNER MILLENNIUM Hematocrit 50.6 40.0 - 51.0 % CERNER MILLENNIUM MCV 92.7(H) 79.0 - 92.0 fL CERNER MILLENNIUM MCH 33.3(H) 25.6 - 32.2 pg CERNER MILLENNIUM MCHC 36.0 32.0 - 36.5 gm/dL CERNER MILLENNIUM Platelets 236 145 - 370 x10(3)/mcL CERNER MILLENNIUM RDWSD 43.9 35.0 - 46.0 fL CERNER MILLENNIUM RDWCV 13.1 10.9 - 14.4 % CERNER MILLENNIUM MPV 9.9 9.0 - 12.0 fL CERNER MILLENNIUM Blood specimen (specimen) 08/03/2011 11:31 AM EST 08/03/2011 11:44 AM EST Jonathon Kaminski MD HEMATOLOGY ORDERABLE S THERON COMER * EKG 12 Lead (08/02/2011 11:43 PM EST) Ventricular rate 98 BPM MUSE SYSTEM Atrial Rate 98 BPM MUSE SYSTEM P-R Interval 142 ms MUSE SYSTEM QRS Duration 96 ms MUSE SYSTEM Q-T Interval 334 ms MUSE SYSTEM QTC Calculated (Bezet) 426 ms MUSE SYSTEM Calculated P Benson 51 degrees MUSE SYSTEM Calculated R Benson 3 degrees MUSE SYSTEM Calculated T Benson 48 degrees MUSE SYSTEM INTERPRETATION Normal sinus rhythm Abnormal ECG When compared with ECG of 01-AUG-2011 21:11, Sinus rhythm has replaced Atrial fibrillation Confirmed by fellow MD Felipa, Arsalan ([id number]) on 08/04/2011 9:26:43 AM Confirmed by MD LEWIS ARMIN ([id number]) on 08/04/2011 3:49:36 PM MUSE SYSTEM 08/02/2011 11:4 3 PM EST 08/04/2011 3:49 PM EST Robby Allen MD ECG ORDERABLES Performing Organization Address [facility] Co de Phone Number MUSE SYSTEM * (ABNORMAL) Cardiac Enzymes (08/02/2011 10:05 AM EST) Troponin-T 0.16(H) <=0.03 ng/mL [facility] Comment: 0.03 ng/mL: Represents the 99th percentile upper reference limit for normals. >0.03 ng/mL: Elevated cardiac troponin T level indicative of myocardial damage. Diagnosis of acute, evolving or recent AL requires a typical rise and gradual fall of cTnT with at least ONE of the following: a) Ischemic symptoms b) Development of pathologic Q waves on the ECG c) ECG changes indicative of eschemia (S-T segment elevation/depression) d) Coronary artery intervention Serial bloods should be obtained for testing on admission, at 6 to 9 hrs and again at 12 to 24 hrs if earlier samples are negative and the clinical index of suspicion is high. Reference: [Myocardial infarction redefined a consensus document of the Joint Society of Cardiology/[place] [employer] Committee for the redefinition of myocardial infarction. Journal of the [place] College [employer]iology 2000; 36: 959-969] CK, Total 151 0 - 200 unit/L [facility] Blood specimen (specimen) 08/02/2011 10:05 AM EST 08/02/2011 10:14 AM EST Jonathon Kaminski MD CHEMISTRY ORDERABLES Performing Organization Address City/[facility]/ZIP Co de Phone Number [facility] * APTT (08/02/2011 10:05 AM EST) PTT 35 25 - 37 sec [facility] Comment: Recommended therapeutic PTT range for full dose unfractionated heparin is 80-114 seconds. Blood specimen (specimen) 08/02/2011 10:05 AM EST 08/02/2011 10:14 AM EST Shashi Bennett MD HEMATOLOGY ORDERABL ES THERON COMER * Echo Transthoracic (Complete) (08/02/2011 9:33 AM EST) EF 70 [facility]ART[facility] SYSTEM Anatomical Region Laterality Modality Other 08/02/2011 Narrative 08/02/2011 9:47 AM EST Procedure: ? Transthoracic Echocardiogram Patient: ? DROWN COLE L ?(Age): 1975(35) Med Rec#: ?[id number] ? Sex: ?M ? Site Loc: ?DH ? Ht / Wt: ??190(cm)/120(kg) Pt. Loc: ? Adult Floor ?BSA: ?2.52 Study Date: ?08/02/2011 ? Pt. Type: Inpatient Tape: ? Referring: Jonathon Kaminski [employer] Ii Assembler: Raffy Agudelo Diagnosis: ??Chest pain (786.50) CPT Code(s): ??Echo Full (38006), ??Spectral Doppler (66762), ??Color Doppler (99244), Indication(s): ??Chest Pain Rhythm: HR ?BP ?100/69 ?? SUMMARY: 1. Moderate concentric left ventricular hypertrophy is observed. ??There is normal global left ventricular systolic function. ??Ejection fraction is estimated to be 70%. ??There are no left ventricular segmental wall motion abnormalities. 2. Right ventricular chamber size, wall thickness, and systolic function are within normal limits. 3. The cardiac valves appear structurally and functionally normal. 4. See remainder of report for additional findings. FINDINGS: Study Quality ?Technically limited Left Ventricle ?The left ventricular chamber size is normal. ?Moderate concentric left ventricular hypertrophy is observed. ?There is no evidence [...] assessed due to inadequate tricuspid regurgitation jet. Right Atrium ?The right atrium is normal in size. Aortic Valve ?The aortic valve is tricuspid. ?There is no evidence of aortic valve thickening. ?There is a trace of aortic regurgitation [...] a pericardial effusion. Aorta ?The aortic root is normal in size. ?The ascending aorta is normal in size. Pulmonary Artery ?The main pulmonary artery appears normal. Venous ?The inferior vena cava appears normal in size. ?There is a greater than 50% respiratory change in the inferior vena cava dimension. Misc ?See remainder of report for additional findings. ?Two-dimensional echo, spectral Doppler and color Doppler performed. Wall Motion: Segment Name ?Rest ? Base-Anteroseptal ?? Normal ? Base-Anterior ? Normal ? Base-Anterolateral ??Normal ? Base-Posterolateral Normal ? Base-Inferior ? Normal ? Base-Inferoseptal ?? Normal ? Mid-Anteroseptal ?Normal ? Mid-Anterior ?Normal ? Mid-Anterolateral ?? Normal ? Mid-Posterolateral ??Normal ? Mid-Inferior ?Normal ? Mid-Inferoseptal ?Normal ? [place]-Septal ? Normal ? [place]-Anterior ? Normal ? [place]-Lateral ?Normal ? [place]-Inferior ? Normal ? [place]-Tip ?Normal ? Chambers ?Value ?Units (Range) ? LV EF Est ? 70 ? % (55 to 80) ? IVSd 2D ? 1.9 ?cm ? LVIDd 2D ?3.9 ?cm ? PWd 2D ?1.4 ?cm ? LVIDs 2D ?2.6 ?cm ? LVFS 2D ? 33 ? % ? LA area ? 24 ? cm2 (<21) ? RA area ? 17 ? cm2 (<18) ? Ao root ? 3.4 ?cm (2.1 to 3.6) ? Asc Ao ?3.2 ?cm (2 to 3.5) ? Mitral Valve ?Value ?Units (Range) ? E peak ?0.54 ? m/sec ? E/A ratio ? 0.7 ?ratio ? MVDT ?176 ?msec ? E1 ?0.09 ? m/sec ? E/E1 ?6 ?ratio ? This report has been electronically signed by: Roc Dykes M.D. ? 08/02/2011 09:47:00 Images reviewed and interpretation verified [facility] Cardiac Ultrasound Laboratory Procedure Note Roc Dykes MD - 08/02/2011 Procedure: Transthoracic Echocardiogram Patient: YESY Meng (Age): 1975(35) Med Rec#: [id number] Sex: M [place] [facility] [place] / Wt: 190(cm)/120(kg) Pt. Loc: Adult Floor BSA: 2.52 Study Date: 08/02/2011 Pt. Type: Inpatient Tape: Referring: Jonathon Kaminski [employer] Ii Assembler: Raffy Agudelo Diagnosis: Chest pain (786.50) CPT Code(s): Echo Full (86840), Spectral Doppler (50395), Color Doppler (48987), Indication(s): Chest Pain Rhythm: HR BP 100/69 SUMMARY: 1. Moderate concentric left ventricular hypertrophy is observed. There is normal global left ventricular systolic function. Ejection fraction is estimated to be 70%. There are no left ventricular segmental wall motion abnormalities. 2. Right ventricular chamber size, wall thickness, and systolic function are within normal limits. 3. The cardiac valves appear structurally and functionally normal. 4. See remainder of report for additional findings. FINDINGS: Study Quality Technically limited Left Ventricle The left ventricular chamber size is normal. Moderate concentric left ventricular hypertrophy is observed. There is no evidence [...] assessed due to inadequate tricuspid regurgitation jet. Right Atrium The right atrium is normal in size. Aortic Valve The aortic valve is tricuspid. There is no evidence of aortic valve thickening. There is a trace of aortic regurgitation [...] a pericardial effusion. Aorta The aortic root is normal in size. The ascending aorta is normal in size. Pulmonary Artery The main pulmonary artery appears normal. Venous The inferior vena cava appears normal in size. There is a greater than 50% respiratory change in the inferior vena cava dimension. Misc See remainder of report for additional findings. Two-dimensional echo, spectral Doppler and color Doppler performed. Wall Motion: Segment Name Rest Base-Anteroseptal Normal Base-Anterior Normal Base-Anterolateral Normal Base-Posterolateral Normal Base-Inferior Normal Base-Inferoseptal Normal Mid-Anteroseptal Normal Mid-Anterior Normal Mid-Anterolateral Normal Mid-Posterolateral Normal Mid-Inferior Normal Mid-Inferoseptal Normal Albion-Septal Normal Albion-Anterior Normal Albion-Lateral Normal Alb[place]-Inferior Normal [place]-Tip Normal Chambers Value Units (Range) LV EF Est 70 % (55 to 80) IVSd 2D 1.9 cm LVIDd 2D 3.9 cm PWd 2D 1.4 cm LVIDs 2D 2.6 cm LVFS 2D 33 % LA area 24 cm2 (<21) RA area 17 cm2 (<18) Ao root 3.4 cm (2.1 to 3.6) Asc Ao 3.2 cm (2 to 3.5) Mitral Valve Value Units (Range) E peak 0.54 m/sec E/A ratio 0.7 ratio MVDT 176 msec E1 0.09 m/sec E/E1 6 ratio This report has been electronically signed by: Roc Dykes M.D. 08/02/2011 09:47:00 Images reviewed and interpretation verified [facility] Cardiac Ultrasound Laboratory Jonathon Kaminski MD ECHO ORDERABLES * Phenytoin level, total (08/02/2011 7:15 AM EST) Phenytoin Lvl 15.0 10.0 - 20.0 mg/L [facility] Comment: Theraputic range: ??10-20 mg/L Toxic: ??> 25 mg/L Patients with renal dysfunction (e.g.creatinine clearance < 30 mls/min) may show falsely elevated results due to accumulation of metabolites in renal failure Blood specimen (specimen) 08/02/2011 7:15 AM EST 08/02/2011 7:27 AM EST Jonathon Kaminski MD CHEMISTRY ORDERABLES [facility]ERON LOVEREPLACED BY [facility] * GREEN TUBE HOLD (08/02/2011 5:33 AM EST) Green Hold Sample in lab. TERELLSIGRID BIRCHTOMREPLACED BY [facility] Blood specimen (specimen) 08/02/2011 5:33 AM EST 08/02/2011 6:20 AM EST Jonathon Kaminski MD CHEMISTRY ORDERABLES Performing Organization Address [facility] Co de Phone Number [facility] * GLUCOSE, RANDOM (08/02/2011 5:33 AM EST) Glucose Lvl 94 60 - 199 mg/dL [facility] Comment:Diabetes: >=200 mg/d L plus symptoms Blood specimen (specimen) 08/02/2011 5:33 AM EST 08/02/2011 6:06 AM EST Jonathon Kaminski MD CHEMISTRY ORDERABLES Performing Organization Address [facility] Phone Number [facility] * (ABNORMAL) CARDIAC ENZYMES (08/02/2011 5:33 AM EST) Pathologist [facility] Troponin-T 0.19(H) <=0.03 ng/mL [facility] Comment: 0.03 ng/mL: Represents the 99th percentile upper reference limit for normals. >0.03 ng/mL: Elevated cardiac troponin T level indicative of myocardial damage. Diagnosis of acute, evolving or recent AL requires a typical rise and gradual fall of cTnT with at least ONE of the following: a) Ischemic symptoms b) Development of pathologic Q waves on the ECG c) ECG changes indicative of eschemia (S-T segment elevation/depression) d) Coronary artery intervention Serial bloods should be obtained for testing on admission, at 6 to 9 hrs and again at 12 to 24 hrs if earlier samples are negative and the clinical index of suspicion is high. Reference: [Myocardial infarction redefined a consensus document of the Joint Society of Cardiology/[place] College of Cardiology Committee for the redefinition of myocardial infarction. Journal of the [place] College of Cardiology 2000; 36: 959-969] CK, Total 181 0 - 200 unit/L [facility] Blood specimen (specimen) 08/02/2011 5:33 AM EST 08/02/2011 6:06 AM EST Jonathon Kaminski MD CHEMISTRY ORDERABLES Performing Organization Address [facility] Co de Phone Number [facility] * LIPID PANEL (FASTING) (08/02/2011 5:33 AM EST) [facility] Signature Chol, Total 148 <=199 mg/dL [facility]ERON [facility] Comment: Recommendations of the NCEP Adult Treatment Panel for the following risk cutoff thresholds for the [place] population: Desirable: <200 mg/dL Borderline High: 200-239 mg/dL High: > or = 240 mg/dL Triglycerides 73 <=149 mg/dL [facility]ERON [facility] Comment: Reference Range: Normal triglycerides: ??<150 mg/dL Borderline high: ??150-199 mg/dL High: ??200-499 mg/dL Very high: ??>kr=907 mg/dL TOM 2001; 285(19):4261-2434 HDL 48 >=40 mg/dL [facility]ON [facility] Comment: Reference range: ??Low HDL: ?? < 40 mg/dL ??Normal: ?40-60 mg/dL ??Desirable: > 60 mg/dL TOM 2001; 285(19):9454-7030 LDL Cholesterol 85 <=99 mg/dL TERELL [facility] Comment: Reference range: ?? Optimal: ?<100 mg/dL ?? Near Optimal/Above Optimal: ?? 100-129 mg/dL ?? Borderline high: ?130-159 mg/dL ?? High: ? 160-189 mg/dL ?? Very high: ?>ek=991 mg/dL TOM 2001: 285(19):3855-3347 Chol/HDL Ratio 3.1 ratio [facility] Comment: A Cholesterol to HDL ratio below 4:1 is desirable. ??Studies suggest that increased CAD risk occurs at ratios above 5 for females and above 6 for men. ? [place] Heart Association ??(http://www.americanheart.org) ? Idania Int Med, 1994; 121:641 ? AM J Med, 1998; 105(1A):48S Blood specimen (specimen) 08/02/2011 5:33 AM EST 08/02/2011 6:06 AM EST Jonathon Kaminski MD CHEMISTRY ORDERABLES [facility] * DIFFERENTIAL, AUTOMATED (08/02/2011 5:33 AM EST) Neutrophils % 69.2 34.0 - 71.0 % CERNER MILLENNIUM Neutr Abs (ANC) 4.70 1.50 - 6.30 x10(3)/mcL CERNER MILLENNIUM Lymphocytes % 21.0 19.0 - 53.0 % CERNER MILLENNIUM Lymphocytes Abs 1.4 1.0 - 3.6 x10(3)/mcL CERNER MILLENNIUM Monocytes % 7.5 4.0 - 13.0 % CERNER MILLENNIUM Monocyte Abs 0.5 0.2 - 1.0 x10(3)/mcL CERNER MILLENNIUM Eosinophils % 2.1 0.0 - 7.0 % CERNER MILLENNIUM Eosinophils Abs 0.1 0.0 - 0.5 x10(3)/mcL CERNER MILLENNIUM Basophils % 0.1 0.0 - 2.0 % CERNER MILLENNIUM Basophils Abs 0.0 0.0 - 0.2 x10(3)/mcL CERNER MILLENNIUM Immature Gran % 0.10 0.00 - 0.66 % [facility] MILLENNIUM Comment: Immature granulocytes(IG's)percentage and absolute count will include metamyelocytes, myelocytes, and promyelocytes. Blood smears from CBCs yielding IG's will be scanned manually for concordance. If this scan disagrees with the automated IG or if promyelocytes are noted, a manual differential will be performed. Halima Gran Abs 0.01 0.00 - 0.05 x10(3)/mcL [facility] MILLENNI[facility] Blood specimen (specimen) 08/02/2011 5:33 AM EST 08/02/2011 6:06 AM EST Jonathon Kaminski MD HEMATOLOGY ORDERABLE S [facility] * Basic Metabolic Panel (non-fasting) (08/02/2011 5:33 AM EST) Glucose Lvl 94 60 - 199 mg/dL [facility] Comment:Diabetes: >=200 mg/d L plus symptoms BUN 11 10 - 20 mg/dL [facility]ERN[facility] MILLENNIUM Creatinine 0.86 0.80 - 1.50 mg/dL CERNER MILLENNIUM Sodium 140 135 - 145 mmol/L CERNER MILLENNIUM Potassium 3.9 3.5 - 5.0 mmol/L [facility] MILLENNI[facility] Comment: Please note: ??Patients with WBC >100,000 may have falsely elevated Potassium levels. ??For accurate Potassium quantification in these patients send serum separator tube (gold top) for subsequent determinations. ??Contact the Clinical Chemistry Laboratory if there are any questions. Chloride 104 98 - 107 mmol/L CERNER MILLENNIUM CO2 28 22 - 31 mmol/L CERNER MILLENNIUM Anion Gap 8 5 - 15 mmol/L CERNER MILLENNIUM Calcium 8.8 8.5 - 10.5 mg/dL [facility]ERNER MILLENNIUM Estimated GFR >60 >=60 [facility] MILLENNIUM Comment: The National Kidney Disease Education Program (NKDEP) has recommended all laboratories report estimated GFR (eGFR) along with plasma creatinine measurements to assist you with recognition of early kidney disease. Caveats: ??Plasma creatinine should be at steady-state (unchanged within the past week). For patients multiply eGFR by 1.2.MDRD equation has not been validated for pediatric patients and is only valid for patients with age >= 18 years. At present, NKDEP does NOT recommend using the MDRD equation for drug dosing purposes and pharmacists should continue to use their current dosing methods. In addition, numerical eGFR values greater than 60 ml/min/1.73 square meters should be treated as > 60, and not an exact number due to greater inaccuracies at these higher values. Per NKDEP, they classify normal renal function as any GFR >60ml/min/1.73 square meters; chronic kidney disease when GFR <60, and renal failure when GFR <15. ??This calculation may not be valid for patients with atypical muscle mass (very lean or obese), acute renal failure, and in patients with diabetic kidney disease. References: http://nkdep.nih.gov/resources/NKDEP_Suggestn4Labs_0606_508.pdf http://www.kidney.org/professionals/kls/pdf/faq_gfr.pdf Blood specimen (specimen) 08/02/2011 5:33 AM EST 08/02/2011 6:06 AM EST Jonathon Kaminski MD CHEMISTRY ORDERABLES CERSIGRID BIRCHENNIUM * (ABNORMAL) CBC (with Diff) (08/02/2011 5:33 AM EST) WBC 6.8 4.0 - 10.0 x10(3)/mcL CERNER MILLENNIUM RBC 5.04 4.63 - 6.08 x10(6)/mcL CERNER MILLENNIUM Hemoglobin 16.6 13.7 - 17.5 gm/dL CERNER MILLENNIUM Hematocrit 47.2 40.0 - 51.0 % CERNER MILLENNIUM MCV 93.7(H) 79.0 - 92.0 fL CERNER MILLENNIUM MCH 32.9(H) 25.6 - 32.2 pg CERNER MILLENNIUM MCHC 35.2 32.0 - 36.5 gm/dL CERNER MILLENNIUM Platelets 222 145 - 370 x10(3)/mcL CERNER MILLENNIUM RDWSD 44.6 35.0 - 46.0 fL CERNER MILLENNIUM RDWCV 13.1 10.9 - 14.4 % CERNER MILLENNIUM MPV 9.9 9.0 - 12.0 fL [facility] MILLENNIUM Blood specimen (specimen) 08/02/2011 5:33 AM EST 08/02/2011 6:06 AM EST Jonathon Kaminski MD HEMATOLOGY ORDERABLE S THERON BIRCHENNIUM * APTT (08/02/2011 5:33 AM EST) PTT 34 25 - 37 sec [facility]ILLENNI[facility] Comment: Recommended therapeutic PTT range for full dose unfractionated heparin is 80-114 seconds. Blood specimen (specimen) 08/02/2011 5:33 AM EST 08/02/2011 6:06 AM EST Jonathon Kaminski MD HEMATOLOGY ORDERABLE S [facility] * Hemoglobin A1c (08/02/2011 5:33 AM EST) Hemoglobin A1C 4.9 4.3 - 6.1 % [facility] Est Avg Gluc 94 mg/dL [facility] Comment: eAG equivalents for HbA1c percentages: HbA1c(%) ?eAG(mg/dL) 6.0 ?126 6.5 ?140 7.0 ?154 7.5 ?169 8.0 ?183 8.5 ?197 9.0 ?212 9.5 ?226 10.0 ? 240 Limitations: The eAG calculation has not been validated on women, individuals below 18 years old and above 70 years old, and individuals with hemoglobinopathies. Additional resources are available on the ADA website: ??http://professional.diabetes.org/glucosecalculator.aspx Reference: Vicente RUBI, Yoel J, Kathleen R, et al. ??Translating the A1C assay into estimated average glucose values. ??Diabetes Care 2008:31(8):8853-5901. Blood specimen (specimen) 08/02/2011 5:33 AM EST 08/02/2011 6:06 AM EST Jonathon Kaminski MD CHEMISTRY ORDERABLES [facility]ERON COMER * XR chest routine PA & lateral (08/01/2011 9:37 PM EST) Anatomical Region Laterality Modality Chest N/A Radiographic Mana ging 08/01/2011 9:37 PM EST Impressions 08/02/2011 10:06 AM EST IMPRESSION: No focal airspace disease. Narrative 08/02/2011 10:06 AM EST PA AND LATERAL CHEST, 08/01/11: CLINICAL INDICATION: ??Chest pain. ?? COMPARISON: ??This study is prior chest radiograph, 03/25/04, and chest CT, 03/26/04. TECHNIQUE: ??PA and lateral chest were obtained. ?? FINDINGS: ??There is no airspace consolidation, pneumothorax, or pleural effusion. Cardiomediastinal silhouette is unremarkable. Osseous structures are unremarkable. Procedure Note Roc Alvarez, DO - 08/02/2011 PA AND LATERAL CHEST, 08/01/11: CLINICAL INDICATION: Chest pain. COMPARISON: This study is prior chest radiograph, 03/25/04, and chest CT, 03/26/04. TECHNIQUE: PA and lateral chest were obtained. FINDINGS: There is no airspace consolidation, pneumothorax, or pleural effusion. Cardiomediastinal silhouette is unremarkable. Osseous structuresare unremarkable. IMPRESSION IMPRESSION: No focal airspace disease. Jonathon Kaminski MD IMG DX ORDERABLES * EKG 12 Lead (08/01/2011 9:11 PM EST) Ventricular rate 133 BPM MUSE SYSTEM Atrial Rate 416 BPM MUSE SYSTEM QRS Duration 98 ms MUSE SYSTEM Q-T Interval 314 ms MUSE SYSTEM QTC Calculated (Bezet) 467 ms MUSE SYSTEM Calculated R Benson 28 degrees MUSE SYSTEM Calculated T Benson 46 degrees MUSE SYSTEM INTERPRETATION Atrial fibrillation with rapid ventricular response When compared with ECG of 06-DEC-2004 16:50, Atrial fibrillation has replaced Sinus rhythm Vent. rate has increased BY ??71 BPM Confirmed by fellow MD Leo Erik [id number]) on 08/02/2011 11:40:25 AM Confirmed by MD Huynh Robert ([id number]) on 08/02/2011 3:03:05 PM MUSE SYSTEM 08/01/2011 9:11 PM EST 08/02/2011 3:03 PM EST Jonathon Kaminski MD ECG ORDERABLES MUSE SYSTEM * DIFFERENTIAL, AUTOMATED (08/01/2011 9:02 PM EST) Neutrophils % 70.2 34.0 - 71.0 % CERNER MILLENNIUM Neutr Abs (ANC) 4.68 1.50 - 6.30 x10(3)/mcL CERNER MILLENNIUM Lymphocytes % 19.6 19.0 - 53.0 % CERNER MILLENNIUM Lymphocytes Abs 1.3 1.0 - 3.6 x10(3)/mcL CERNER MILLENNIUM Monocytes % 8.2 4.0 - 13.0 % CERNER MILLENNIUM Monocyte Abs 0.6 0.2 - 1.0 x10(3)/mcL CERNER MILLENNIUM Eosinophils % 1.8 0.0 - 7.0 % CERNER MILLENNIUM Eosinophils Abs 0.1 0.0 - 0.5 x10(3)/mcL CERNER MILLENNIUM Basophils % 0.1 0.0 - 2.0 % CERNER MILLENNIUM Basophils Abs 0.0 0.0 - 0.2 x10(3)/mcL CERNER MILLENNIUM Immature Gran % 0.10 0.00 - 0.66 % CERNER MILLENNIUM Comment: Immature granulocytes(IG's)percentage and absolute count will include metamyelocytes, myelocytes, and promyelocytes. Blood smears from CBCs yielding IG's will be scanned manually for concordance. If this scan disagrees with the automated IG or if promyelocytes are noted, a manual differential will be performed. Halima Gran Abs 0.01 0.00 - 0.05 x10(3)/mcL CERNER MILLENNIUM Blood specimen (specimen) 08/01/2011 9:02 PM EST 08/01/2011 9:11 PM EST Jonathon Kaminski MD HEMATOLOGY ORDERABLE S [facility]ERNER MILLENNIUM * (ABNORMAL) Cardiac Enzymes (08/01/2011 9:02 PM EST) Troponin-T 0.21(H) <=0.03 ng/mL [facility] Comment: 0.03 ng/mL: Represents the 99th percentile upper reference limit for normals. >0.03 ng/mL: Elevated cardiac troponin T level indicative of myocardial damage. Diagnosis of acute, evolving or recent AL requires a typical rise and gradual fall of cTnT with at least ONE of the following: a) Ischemic symptoms b) Development of pathologic Q waves on the ECG c) ECG changes indicative of eschemia (S-T segment elevation/depression) d) Coronary artery intervention Serial bloods should be obtained for testing on admission, at 6 to 9 hrs and again at 12 to 24 hrs if earlier samples are negative and the clinical index of suspicion is high. Reference: [Myocardial infarction redefined a consensus document of the Joint Society of Cardiology/[place] College of Cardiology Committee for the redefinition of myocardial infarction. Journal of the [place] College of Cardiology 2000; 36: 959-969] CK, Total 220(H) 0 - 200 unit/L [facility]ON COM[facility] Blood specimen (specimen) 08/01/2011 9:02 PM EST 08/01/2011 9:11 PM EST Jonathon Kaminski MD CHEMISTRY ORDERABLES THERON COMER * Prothrombin Time (08/01/2011 9:02 PM EST) PT 14.4 12.3 - 14.7 sec THERON COMER Comment: [facility] Transfusion Committee Guidelines: INR less than 2.0, PTT less than OR equal to 43.5 seconds, or Fibrinogen greater than or equal to 100 mg/dl indicate adequate procoagulant activity for hemostasis in patients without underlying bleeding disorders. INR 1.1 0.9 - 1.1 THERON QUETAMARIA [facility]LENA Blood specimen (specimen) 08/01/2011 9:02 PM EST 08/01/2011 9:11 PM EST Jonathon Kaminski MD HEMATOLOGY ORDERABLE S Performing Organization Address [facility] de Phone Number CERNER MILLENNIUM * (ABNORMAL) Hepatic Function Panel (08/01/2011 9:02 PM EST) Total Protein 6.9 6.4 - 8.3 gm/dL CERNER MILLENNIUM Albumin 3.8 3.2 - 5.2 gm/dL CERNER MILLENNIUM AST 38 0 - 39 unit/L CERNER MILLENNIUM ALT 46 0 - 55 unit/L CERNER MILLENNIUM Alk Phos 156(H) 40 - 120 unit/L CERNER MILLENNIUM Total Bilirubin 0.5 0.2 - 1.3 mg/dL CERNER MILLENNIUM Bili, Direct 0.1 0.0 - 0.3 mg/dL [facility]ERN[facility] MILLENNIUM Blood specimen (specimen) 08/01/2011 9:02 PM EST 08/01/2011 9:11 PM EST Jonathon Kaminski MD CHEMISTRY ORDERABLES Performing Organization Address [facility] de Phone Number CERNER MILLENNIUM * (ABNORMAL) pro-Brain Natriuretic Peptide (08/01/2011 9:02 PM EST) ProBNP 940(H) <=125 pg/mL CERNER MILLENNIUM Blood specimen (specimen) 08/01/2011 9:02 PM EST 08/01/2011 9:11 PM EST Jonathon Kaminski MD CHEMISTRY ORDERABLES Performing Organization Address [facility] Phone Number CERNER MILLENNIUM * TSH (08/01/2011 9:02 PM EST) TSH 2.95 0.27 - 4.20 mcIU/mL CERNER MILLENNIUM Blood specimen (specimen) 08/01/2011 9:02 PM EST 08/01/2011 9:11 PM EST Jonathon Kaminski MD CHEMISTRY ORDERABLES Performing Organization Address [place]/[facility] Co de Phone Number CERNER MILLENNIUM * Phosphorus (08/01/2011 9:02 PM EST) Phosphorus 2.7 2.5 - 4.5 mg/dL CERNER MILLENNIUM Blood specimen (specimen) 08/01/2011 9:02 PM EST 08/01/2011 9:11 PM EST Jonathon Kaminski MD CHEMISTRY ORDERABLES Performing Organization Address [facility] de Phone Number CERNER QUETAENNIUM * Magnesium (08/01/2011 9:02 PM EST) Magnesium 0.89 0.69 - 1.07 mmol/L CERNER MILLENNIUM Blood specimen (specimen) 08/01/2011 9:02 PM EST 08/01/2011 9:11 PM EST Jonathon Kaminski MD CHEMISTRY ORDERABLES Performing Organization Address [facility] Phone Number CERNER MILLENNIUM * (ABNORMAL) Basic Metabolic Panel (non-fasting) (08/01/2011 9:02 PM EST) Glucose Lvl 110 60 - 199 mg/dL [facility]ERNER MILLENNIUM Comment:Diabetes: >=200 mg/d L plus symptoms BUN 9(L) 10 - 20 mg/dL CERNER MILLENNIUM Creatinine 0.85 0.80 - 1.50 mg/dL CERNER MILLENNIUM Sodium 139 135 - 145 mmol/L CERNER MILLENNIUM Potassium 3.9 3.5 - 5.0 mmol/L CERNER MILLENNIUM Comment: Please note: ??Patients with WBC >100,000 may have falsely elevated Potassium levels. ??For accurate Potassium quantification in these patients send serum separator tube (gold top) for subsequent determinations. ??Contact the Clinical Chemistry Laboratory if there are any questions. Chloride 106 98 - 107 mmol/L CERNER MILLENNIUM CO2 26 22 - 31 mmol/L CERNER MILLENNIUM Anion Gap 7 5 - 15 mmol/L CERNER MILLENNIUM Calcium 8.9 8.5 - 10.5 mg/dL CERNER MILLENNIUM Estimated GFR >60 >=60 CERNER MILLENNIUM Comment: The National Kidney Disease Education Program (NKDEP) has recommended all laboratories report estimated GFR (eGFR) along with plasma creatinine measurements to assist you with recognition of early kidney disease. Caveats: ??Plasma creatinine should be at steady-state (unchanged within the past week). For patients multiply eGFR by 1.2.MDRD equation has not been validated for pediatric patients and is only valid for patients with age >= 18 years. At present, NKDEP does NOT recommend using the MDRD equation for drug dosing purposes and pharmacists should continue to use their current dosing methods. In addition, numerical eGFR values greater than 60 ml/min/1.73 square meters should be treated as > 60, and not an exact number due to greater inaccuracies at these higher values. Per NKDEP, they classify normal renal function as any GFR >60ml/min/1.73 square meters; chronic kidney disease when GFR <60, and renal failure when GFR <15. ??This calculation may not be valid for patients with atypical muscle mass (very lean or obese), acute renal failure, and in patients with diabetic kidney disease. References: http://nkdep.nih.gov/resources/NKDEP_Suggestn4Labs_0606_508.pdf http://www.kidney.org/professionals/kls/pdf/faq_gfr.pdf Blood specimen (specimen) 08/01/2011 9:02 PM EST 08/01/2011 9:11 PM EST Jonathon Kaminski MD CHEMISTRY ORDERABLES [facility] * (ABNORMAL) CBC (with Diff) (08/01/2011 9:02 PM EST) WBC 6.7 4.0 - 10.0 x10(3)/mcL CERNER MILLENNIUM RBC 4.83 4.63 - 6.08 x10(6)/mcL CERNER MILLENNIUM Hemoglobin 16.0 13.7 - 17.5 gm/dL CERNER MILLENNIUM Hematocrit 44.9 40.0 - 51.0 % CERNER MILLENNIUM MCV 93.0(H) 79.0 - 92.0 fL CERNER MILLENNIUM MCH 33.1(H) 25.6 - 32.2 pg CERSIGRID MILLENNIUM MCHC 35.6 32.0 - 36.5 gm/dL CERSIGRID MILLENNIUM Platelets 208 145 - 370 x10(3)/mcL CERSIGRID MILLENNIUM RDWSD 44.8 35.0 - 46.0 fL CERSIGRID MILLENNIUM RDWCV 13.1 10.9 - 14.4 % THERON BIRCHENNIUM MPV 9.8 9.0 - 12.0 fL THERON BIRCHENNIUM Blood specimen (specimen) 08/01/2011 9:02 PM EST 08/01/2011 9:11 PM EST Jonathon Kaminski MD HEMATOLOGY ORDERABLE S Performing Organization Address [facility] Co de Phone Number THERON COMER * APTT (08/01/2011 9:02 PM EST) PTT 25 25 - 37 sec THERON BIRCHENNIUM Comment: Recommended therapeutic PTT range for full dose unfractionated heparin is 80-114 seconds. Blood specimen (specimen) 08/01/2011 9:02 PM EST 08/01/2011 9:11 PM EST Jonathon Kaminski MD HEMATOLOGY ORDERABLE S Performing Organization Address [facility] Phone Number THERON COMER documented in this encounter Visit Diagnoses Diagnosis Atrial fibrillation with rapid ventricular response- Primary Atrial fibrillation Obesity Obesity, unspecified Possible Hypertrophic cardiomyopathy Other hypertrophic cardiomyopathy seizure disorder Used by the Incoming Problem List or Incoming Clinical Observations Interface as a dummy diagnosis to file in case the diagnosis designated on the incoming message is not mapped in [facility]. documented in this encounter Administered Medications Inactive Administered Medications - up to 3 most recent administrations Medication Order MAR Action Action Date Dose Rate Site aspirin EC tablet 325 mg 325 mg, Oral, DAILY, First dose on Sun08/02/11 at 0900, Until Discontinued, Pre-Admission Testing (Prior to Admission), Routine Given 08/02/2011 8:51 AM EST 325 mg aspirin EC tablet 81 mg 81 mg, Oral, DAILY, First dose (after last modification) on Marleny 08/03/11 at 0900, Until Discontinued, Pre-Admission Testing (Prior to Admission), Routine Given 08/05/2011 9:00 AM EST 81 mg Given 08/04/2011 9:00 AM EST 81 mg Given 08/03/2011 9:00 AM EST 81 mg atorvastatin (LIPITOR) tablet 40 mg 40 mg, Oral, DAILY WITH DINNER, First dose on Sun08/02/11 at 1700, Until Discontinued, Pre-Admission Testing (Prior to Admission), Routine Given 08/04/2011 5:00 PM EST 40 mg Given 08/03/2011 5:00 PM EST 40 mg Given 08/02/2011 5:08 PM EST 40 mg calcium carbonate (TUMS) chewable tablet 500 mg 500 mg, Oral, EVERY 6 HOURS PRN, Starting on Sun08/04/11 at 2151, Until 08/05/11 at 1519, Heartburn, Routine Given 08/04/2011 10:08 PM EST 500 mg clopidogrel (PLAVIX) tablet 600 mg 600 mg, Oral, ONCE, 1 dose, On Sun08/02/11 at 0515, STAT Given 08/02/2011 5:15 AM EST 600 mg DILTiazem (CARDIZEM CD) ER capsule 360 mg 360 mg, Oral, DAILY, First dose on Sun08/04/11 at 0930, Until Discontinued, Routine Given 08/05/2011 9:00 AM EST 360 mg Given 08/04/2011 9:30 AM EST 360 mg DILTiazem (CARDIZEM) tablet 30 mg 30 mg, Oral, EVERY 6 HOURS SCHEDULED, First dose on Marleny 08/03/11 at 1400, Until Discontinued, Routine Given 08/04/2011 5:52 AM EST 30 mg Given 08/04/2011 12:00 AM EST 30 mg Given 08/03/2011 6:00 PM EST 30 mg DILTiazem 100 mg in dextrose 5% 100 mL infusion 5-15 mg/hr (rounded to 5-15 mL/hr), Intravenous, CONTINUOUS, Starting on Sun08/02/11 at 1345, Until Marleny 08/03/11 at 1309, Infusion: ? ? Titrate to maintain heart rate of 90 ; Call MD for heart less than 60. Initiate infusion at 5 mg/hr and increase every 30 minutes by 5 mg/hr to a maximum dose of 15 mg/hr. New Bag 08/03/2011 2:45 AM EST 15 mg/hr 15 mL/hr New Bag 08/02/2011 8:45 PM EST 15 mg/hr 15 mL/hr Rate/Dose Change 08/02/2011 4:18 PM EST 15 mg/hr 15 mL/h r Right Arm enoxaparin (LOVENOX) injection 120 mg 120 mg, Subcutaneous, EVERY 12 HOURS SCHEDULED (2 times per day), First dose on Sun08/02/11 at 1400, Until Discontinued, Routine Given 08/05/2011 9:00 AM EST 120 mg Given 08/04/2011 9:15 PM EST 120 mg Given 08/04/2011 9:00 AM EST 120 mg heparin (porcine) injection 2,000-4,000 Units 2,000-4,000 Units, Intravenous, BOLUS PER HEPARIN PROTOCOL, Starting on Sun08/02/11 at 0300, Until Sun08/02/11 at 1324, Per Protocol, Adjust to dosing chart, Patient Weight 115-greater kg PTT less than 60 seconds - 4,000 units PTT 60-79 seconds - 2,000 units PTT 80-114 seconds - no bolus , Routine Given 08/02/2011 12:30 PM EST 4,000 Units Left Arm heparin 25,000 units in dextrose 5% 500 mL infusion 350-7,000 Units/hr (rounded to 7-140 mL/hr), Intravenous, CONTINUOUS, Starting on Sun08/02/11 at 0300, Until Sun08/02/11 at 1324, Patient Weight 115-greater kg Initial dose - 1,000 units/hr = 20 mL/hr PTT less than 60 sec - increase by 450 units/hr = 9 mL/hr PTT 60-79 sec- increase by 250 units/hr = 5 mL/hr PTT 80-114 sec - no change PTT 115-129 sec - decrease by 100 units/hr = 2 mL/hr PTT 130-145 sec - stop infusion for 30 min then decrease by 250 units/hr = 5 mL/hr PTT greater than 145 sec - stop infusion for 60 min then decrease by 350 units/hr = 7 mL/hr PTT greater than 145 sec X 2 - call live in housekeeper nanny See Bolus dosing guidance for aPTT values between 60-70 seconds under PRN medications , Routine Rate/Dose Change 08/02/2011 12:28 PM EST 1,450 Units/hr 29 mL/hr Rate/Dose Verify 08/02/2011 8:55 AM EST 1,000 Units/hr 20 mL/hr New Bag 08/02/2011 3:00 AM EST 1,000 Units/hr 20 mL/hr hydrochlorothiazide (HYDRODIURIL) tablet 12.5 mg 12.5 mg, Oral, DAILY, First dose on Sun08/02/11 at 1200, Until Discontinued, Hold SBP < 100, Pre-Admission Testing (Prior to Admission), Routine Given 08/05/2011 9:00 AM EST 12.5 mg Given 08/04/2011 9:00 AM EST 12.5 mg Given 08/03/2011 9:00 AM EST 12.5 mg lamoTRIgine (LAMICTAL) tablet 25 mg 25 mg, Oral, DAILY, 14 doses, First dose (after last modification) on Sun08/02/11 at 1800, Last dose on Sun08/15/11 at 0900, Routine Given 08/05/2011 9:00 AM EST 25 mg Given 08/04/2011 9:00 AM EST 25 mg Given 08/03/2011 9:00 AM EST 25 mg levothyroxine (SYNTHROID) tablet 200 mcg 200 mcg, Oral, EVERY MORNING, First dose on Sun08/02/11 at 0600, Until Discontinued, Pre-Admission Testing (Prior to Admission) Given 08/05/2011 6:07 AM ES T 200 mcg Given 08/04/2011 5:52 AM EST 200 mcg Given 08/03/2011 6:00 AM EST 200 mcg lisinopril (PRINIVIL;ZESTRIL) tablet 5 mg 5 mg, Oral, DAILY, First dose on Sun08/02/11 at 1200, Until Discontinued, Hold SBP < 100 , Pre-Admission Testing (Prior to Admission), Routine Given 08/05/2011 9:00 AM EST 5 mg Given 08/04/2011 9:00 AM EST 5 mg Given 08/03/2011 9:00 AM EST 5 mg metoprolol (LOPRESSOR) injection 5 mg 5 mg, Intravenous, ONCE, 1 dose, On Sun08/01/11 at 2300 Given 08/01/2011 11:00 PM EST 5 mg metoprolol (LOPRESSOR) injection 5 mg 5 mg, Intravenous, EVERY 5 MIN PRN, Starting on Sun08/02/11 at 2050, Until 08/05/11 at 1519, High Blood Pressure, For HR > 110 as needed Given 08/02/2011 10:15 PM EST 5 mg Given 08/02/2011 10:10 PM EST 5 mg metoprolol (LOPRESSOR) tablet 12.5 mg 12.5 mg, Oral, EVERY 6 HOURS SCHEDULED, First dose (after last modification) on Sun08/04/11 at 1200, Until Discontinued, Routine Given 08/04/2011 12:00 PM EST 12.5 mg metoprolol tartrate (LOPRESSOR) tablet 25 mg 25 mg, Oral, EVERY 6 HOURS SCHEDULED, First dose (after last modification) on Sun08/04/11 at 1800, Until Discontinued, Routine Given 08/05/2011 12:00 PM EST 25 mg Given 08/05/2011 6:07 AM EST 25 mg Given 08/05/2011 12:30 AM EST 25 mg phenytoin (DILANTIN) ER capsule 100 mg 100 mg, Oral, EVERY MORNING, First dose on Sun08/02/11 at 0700, Until Discontinued, Hold enteral nutrition at least 1 hour before and 2 hours after dose. Monitor drug levels., Pre-Admission Testing (Prior to Admission), Routine Given 08/05/2011 7:00 AM EST 100 mg Given 08/04/2011 7:00 AM EST 100 mg Given 08/03/2011 7:00 AM EST 100 mg phenytoin (DILANTIN) ER capsule 200 mg 200 mg, Oral, EVERY EVENING, First dose on Sun08/01/11 at 2200, Until Discontinued, Hold enteral nutrition at least 1 hour before and 2 hours after dose. Monitor drug levels., Pre-Admission Testing (Prior to Admission), Routine Given 08/04/2011 5:00 PM EST 200 mg Given 08/03/2011 5:00 PM EST 200 mg Given 08/02/2011 5:08 PM EST 200 mg sodium chloride 0.9 % flush 5 mL 5 mL, Intravenous, EVERY 12 HOURS, First dose on Sun08/01/11 at 2115, Until Discontinued, Pre-Admission Testing (Prior to Admission) Given 08/05/2011 9:15 AM EST 5 mLs Given 08/04/2011 9:15 PM EST 5 mLs Given 08/04/2011 9:15 AM EST 5 mLs sodium chloride 0.9% infusion 100 mL/hr, Intravenous, CONTINUOUS, Starting on Sun08/02/11 at 0500, Until Sun08/02/11 at 0959 Rate/Dose Verify 08/02/2011 8:55 AM EST 100 mL/hr 100 mL/hr New Bag 08/02/2011 5:00 AM EST 100 mL/hr 100 mL/hr documented in this encounter Active and Recently Administered Medications Times are shown in EST. Scheduled Medication Order 08/03/2011 08/04/2011 08/05/2011 aspirin EC tablet 81 mg (CANCELED) 81 mg, Oral, DAILY, First dose (after last modification) on Marleny 08/03/11 at 0900, Until Discontinued, Pre-Admission Testing (Prior to Admission), Routine 0900 (Given - Provider: Deonte Ferguson RN) 0900 (Given - Provider: Deonte Ferguson RN) 0900 (Given - Provider: Kandy Bailey RN) atorvastatin (LIPITOR) tablet 40 mg (CANCELED) 40 mg, Oral, DAILY WITH DINNER, First dose on Sun08/02/11 at 1700, Until Discontinued, Pre-Admission Testing (Prior to Admission), Routine 1700 (Given - Provider: Deonte Ferguson RN) 1700 (Given - Provider: Kandy Bailey RN) DILTiazem (CARDIZEM CD) ER capsule 360 mg 360 mg, Oral, DAILY, First dose on Sun08/04/11 at 0930, Until Discontinued, Routine 0930 (Given - Provider: Deonte Ferguson RN) 0900 (Given - Provider: Kandy Bailey RN) DILTiazem (CARDIZEM) tablet 30 mg (CANCELED) 30 mg, Oral, EVERY 6 HOURS SCHEDULED, First dose on Marleny 08/03/11 at 1400, Until Discontinued, Routine 1400 (Given - Provider: Deonte Ferguson RN)1800 (Given - Provider: Deonte Ferguson RN) 0000 (Given - Provider: Linsey Kuhn RN)0552 (Given - Provider: Linsey Kuhn RN) enoxaparin (LOVENOX) injection 120 mg (CANCELED) 120 mg, Subcutaneous, EVERY 12 HOURS SCHEDULED (2 times per day), First dose on Sun08/02/11 at 1400, Until Discontinued, Routine 0034 (Given - Provider: Linsey Kuhn RN - Comment: pt received previous dose late)09 (Given - Provider: Deonte Ferguson RN)2014 (Given - Provider: Linsey Kuhn RN) 0900 (Given - Provider: Deonte Ferguson RN)2114 (Given - Provider: Estrella Morfin RN) 899 (Given - Provider: Kandy Bailey RN) hydrochlorothiazide (HYDRODIURIL) tablet 12.5 mg (CANCELED) 12.5 mg, Oral, DAILY, First dose on Sun08/02/11 at 1200, Until Discontinued, Hold SBP < 100, Pre-Admission Testing (Prior to Admission), Routine 0900 (Given - Provider: Deonte Ferguson RN) 0900 (Given - Provider: Deonte Ferguson RN) 09 (Given - Provider: Kandy Bailey RN) lamoTRIgine (LAMICTAL) tablet 100 mg(Linked Group 1) 100 mg, Oral, 2 TIMES DAILY, First dose (after last modification) on Sun09/27/11 at 0900, Until Discontinued, Routine lamoTRIgine (LAMICTAL) tablet 25 mg(Linked Group 1) 25 mg, Oral, DAILY, 14 doses, First dose (after last modification) on Sun08/02/11 at 1800, Last dose on Sun08/15/11 at 0900, Routine 0900 (Given - Provider: Deonte Ferguson RN) 899 (Given - Provider: Deonte Ferguson RN) 09 (Given - Provider: Kandy Bailey RN) lamoTRIgine (LAMICTAL) tablet 25 mg(Linked Group 1) 25 mg, Oral, 2 TIMES DAILY, 28 doses, First dose (after last modification) on Sun08/16/11 at 0900, Last dose on Sun08/29/11 at 2100, Routine lamoTRIgine (LAMICTAL) tablet 50 mg(Linked Group 1) 50 mg, Oral, 2 TIMES DAILY, 28 doses, First dose (after last modification) on Sun08/30/11 at 0900, Last dose on Sun09/12/11 at 2100, Routine lamoTRIgine (LAMICTAL) tablet 75 mg(Linked Group 1) 75 mg, Oral, 2 TIMES DAILY, 28 doses, First dose (after last modification) on Sun09/13/11 at 0900, Last dose on Sun09/26/11 at 2100, Routine levothyroxine (SYNTHROID) tablet 200 mcg (CANCELED) 200 mcg, Oral, EVERY MORNING, First dose on Sun08/02/11 at 0600, Until Discontinued, Pre-Admission Testing (Prior to Admission) 0600 (Given - Provider: Linsey Kuhn RN) 0552 (Given - Provider: Linsey Kuhn RN) 0607 (Given - Provider: Estrella Morfin RN) lisinopril (PRINIVIL;ZESTRIL) tablet 5 mg (CANCELED) 5 mg, Oral, DAILY, First dose on Sun08/02/11 at 1200, Until Discontinued, Hold SBP < 100 , Pre-Admission Testing (Prior to Admission), Routine 0900 (Given - Provider: Deonte Ferguson RN) 0900 (Given - Provider: Deonte Ferguson RN) 0900 (Given - Provider: Kandy Bailey RN) metoprolol (LOPRESSOR) tablet 12.5 mg (CANCELED) 12.5 mg, Oral, EVERY 6 HOURS SCHEDULED, First dose (after last modification) on Sun08/04/11 at 1200, Until Discontinued, Routine 1200 (Given - Provider: Deonte Ferguson RN) metoprolol tartrate (LOPRESSOR) tablet 25 mg (CANCELED) 25 mg, Oral, EVERY 6 HOURS SCHEDULED, First dose (after last modification) on Sun08/04/11 at 1800, Until Discontinued, Routine 1800 (Given - Provider: Kandy Bailey RN) 0030 (Given - Provider: Estrella Morfin RN)0607 (Given - Provider: Estrella Morfin RN)1200 (Given - Provider: Kandy Bailey RN) phenytoin (DILANTIN) ER capsule 100 mg (CANCELED) 100 mg, Oral, EVERY MORNING, First dose on Sun08/02/11 at 0700, Until Discontinued, Hold enteral nutrition at least 1 hour before and 2 hours after dose. Monitor drug levels., Pre-Admission Testing (Prior to Admission), Routine 0700 (Given - Provider: Deonte Ferguson RN) 0700 (Given - Provider: Deonte Ferguson RN) 0700 (Given - Provider: Kandy Bailey RN) phenytoin (DILANTIN) ER capsule 200 mg (CANCELED) 200 mg, Oral, EVERY EVENING, First dose on Sun08/01/11 at 2200, Until Discontinued, Hold enteral nutrition at least 1 hour before and 2 hours after dose. Monitor drug levels., Pre-Admission Testing (Prior to Admission), Routine 1700 (Given - Provider: Deonte Ferguson, RN) 1699 (Given - Provider: Kandy Bailey, THOMAS) sodium chloride 0.9 % flush 5 mL (CANCELED) 5 mL, Intravenous, EVERY 12 HOURS, First dose on Sun08/01/11 at 2115, Until Discontinued, Pre-Admission Testing (Prior to Admission) 914 (Given - Provider: Deonte Ferguson, RN)2014 (Given - Provider: Linsey Kuhn, THOMAS) 914 (Given - Provider: Deonte Ferguson, RN)2114 (Given - Provider: Estrella Morfin, RN) 914 (Given - Provider: Kandy Bailey, THOMAS) Continuous Medication Order 08/03/2011 08/04/2011 08/05/2011 DILTiazem 100 mg in dextrose 5% 100 mL infusion (CANCELED) 5-15 mg/hr (rounded to 5-15 mL/hr), Intravenous, CONTINUOUS, Starting on Sun08/02/11 at 1345, Until Sun08/03/11 at 1309, Infusion: ? ? Titrate to maintain heart rate of 90 ; Call MD for heart less than 60. Initiate infusion at 5 mg/hr and increase every 30 minutes by 5 mg/hr to a maximum dose of 15 mg/hr. 0245 (New Bag - Provider: Linsey Kuhn, THOMAS) PRN Medication Order 08/03/2011 08/04/2011 08/05/2011 calcium carbonate (TUMS) chewable tablet 500 mg (CANCELED) 500 mg, Oral, EVERY 6 HOURS PRN, Starting on Sun08/04/11 at 2151, Until 08/05/11 at 1519, Heartburn, Routine 2208 (Given - Provider: Estrella Morfin, THOMAS) Linked Groups Order Group 1: lamoTRIgine (LAMICTAL) tablet 25 mgJump to med 25 mg, Oral, DAILY, 14 doses, First dose (after last modification) on Sun08/02/11 at 1800, Last dose on Sun08/15/11 at 0900, Routine Followed by lamoTRIgine (LAMICTAL) tablet 25 mgJump to med 25 mg, Oral, 2 TIMES DAILY, 28 doses, First dose (after last modification) on Sun08/16/11 at 0900, Last dose on Sun08/29/11 at 2100, Routine Followed by lamoTRIgine (LAMICTAL) tablet 50 mgJump to med 50 mg, Oral, 2 TIMES DAILY, 28 doses, First dose (after last modification) on Sun08/30/11 at 0900, Last dose on Sun09/12/11 at 2100, Routine Followed by lamoTRIgine (LAMICTAL) tablet 75 mgJump to med 75 mg, Oral, 2 TIMES DAILY, 28 doses, First dose (after last modification) on Sun09/13/11 at 0900, Last dose on Sun09/26/11 at 2100, Routine Followed by lamoTRIgine (LAMICTAL) tablet 100 mgJump to med 100 mg, Oral, 2 TIMES DAILY, First dose (after last modification) on Sun09/27/11 at 0900, Until Discontinued, Routine documented in this encounter Care Teams Oil And Gas Principal Relationship Specialty Start Date End Date Angelia Crespo MD [address] [place] [address] [address] PCP - General 08/01/11 09/19/11 documented as of this encounter
--- OUTSIDE RECORDS SUMMARY | 2024-04-14 13:55 | XMS_ITS | Encounter Summary ---
Author Organization On License Of [place] [address] Care Team Providers Care Immersion Metalcleaner Name Role Phone David Templeton MD Primary Care Provider [phone] Encounter Details Date Type Department Care Team (Late st Contact Info) Description 08/03/2011 11:59 PM EST Anesthesia Event [place] [id number] Keith Marie MD [facility] [place] [address] Carol Finch MD [facility] [place] [address] Anesthesia Record Procedure Summary Procedure Name Responsible Anesthesiologist Anesthesia Start Time Anesthesia Stop Time TRANSESOPHAGEAL ECHOCARDIOGRAM (WRVU 2.3) Events No events on file. Meds * Agents No agents on file. * Blood No blood administrations on file. Lines, Drains, and Airways No LDAs on file. documented in this encounter Social History Tobacco Use Types Packs/Day Years Used Date Smoking Tobacco: Never Alcohol Use Standard Drinks/Week Comments Yes 0 (1 standard drink = 0.6 oz pur e alcohol) occasional glass of wine Sex and Gender Information Value Date Recorded Sex Assigned at Not on file Gender Identity Not on file Sexual Orientation Not on file documented as of this encounter OR Notes * Anesthesia Postprocedure Evaluation - Keith Marie MD - 08/03/2011 8:52 AM EST Patient: Cole Mar Procedure(s) Performed: TRANSESOPHAGEAL ECHOCARDIOGRAM; CARDIOVERSION Procedure cancelled due to spontaneous conversion to NSR. * Anesthesia Preprocedure Evaluation - Keith Marie MD - 08/03/2011 7:44 AM EST Anesthesia Evaluation Patient summary reviewed and Nursing notes reviewed Airway Dental Pulmonary (+) sleep apnea, Cardiovascular (+) hypertension, CHF, ROS comment: Afib with RVR NSTEMI HCOM TTE (08/02/11): LVEF 70%, normal LV filling pressures, moderate concentric LVH Neuro/Psych (+) seizures poorly controlled, GI/Hepatic/Renal Endo/Other (+) hypothyroidism, Comments: obesity Abdominal Anesthesia Plan ASA 3 MAC with intravenous induction documented in this encounter Plan of Treatment Not on file documented as of this encounter Visit Diagnoses Not on filedocumented in this encounter Care Teams Immersion Metalcleaner Relationship Specialty Start Date End Date David Templeton MD [address] [place] [address] PCP - General 08/01/11 09/19/11 documented as of this encounter
--- OUTSIDE RECORDS SUMMARY | 2024-04-14 13:55 | XMS_ITS | Encounter Summary ---
[place] [address] Care Team Providers Care Director Of Strategic Alliances Name Role Phone David Templeton MD Primary Care Provider [phone] Reason for Visit * Reason Onset Date Comments Other 08/04/2011 started in error Encounter Details Date Type Department Care Team (Late st Contact Info) Description 08/04/2011 [place] [phone] Annie Soto MD [facility] [place] [address] Other (started in error) Social History Tobacco Use Types Packs/Day Years [...] encounter Miscellaneous Notes * Telephone Encounter - Summer Bone - 08/04/2011 2:44 PM EST Started in error documented in this encounter Plan of Treatment Not on file documented as of this encounter Visit Diagnoses Not on filedocumented in this encounter Care Teams Director Of Strategic Alliances Relationship Specialty Start Date End Date David Templeton MD [address] [facility] [facility] [address] [address] [facility] [[email or web address] [address] [place] [address] PCP - General 08/01/11 09/19/11 documented as of this encounter
--- OUTSIDE RECORDS SUMMARY | 2024-04-14 13:55 | XMS_ITS | Encounter Summary ---
[place] [address] Care Team Providers Care Bankruptcy Processor Name Role Phone Debbie Dukes MD Primary Care Provider [phone] Reason for Visit * Reason Onset Date Comments Other 09/21/2011 Encounter Details Date Type Department Care Team (Late st Contact Info) Description 09/21/2011 Telephone Cardiology at [address] [phone] Robby Allen MD [facility] [place] [address] Other Social History Tobacco Use Types Packs/Day [...] encounter Miscellaneous Notes * Telephone Encounter - Reyna Acuna - 09/21/2011 9:42 AM EST PENDED ORDER documented in this encounter Plan of Treatment Not on file documented as of this encounter Visit Diagnoses Diagnosis Cardiomyopathy Other primary cardiomyopathies documented in this encounter Care Teams Bankruptcy Processor Relationship Specialty Start Date End Date Debbie Dukes MD [address] [place] [address] PCP - General 09/20/11 07/31/13 documented as of this encounter
--- OUTSIDE RECORDS SUMMARY | 2024-04-14 13:55 | XMS_ITS | Encounter Summary ---
Author Organization [place] [address] Care Team Providers Care Art Instructor Name Role Phone Angelia Crespo MD Primary Care Provider [phone] Encounter Details Date Type Department Care Team (Late st Contact Info) Description 08/07/2011 Orders Only [place] [address] Antoine Bills MD [facility] [place] [address] Seizure disorder (Primary Dx) Social History Tobacco Use Types [...] documented as of this encounter Results * EEG INNC. RECORDING AWAKE AND ASLEEP, W. HYPERVENT/PHOTIC STIMU PRFM (01/01/2012 11:28 AM EDT) Narrative Franklyn Key MD - 01/01/2012 11:28 AM EDT EEG REPORT Patient: Cole Mar : 1975 Date: August 09, 2011 ?? Interpreting Physician: Attending: FRANKLYN KEY MD. Resident: JEREL ZAMORA MD Referring physician: Dr. Soto BRIEF HISTORY/INDICATION FOR STUDY: ??Cole Mar is a 35 y.o. patient with PMH of hypothyroidism, hypertension, Afib with AVR, nonischemic cardiomyopathy and generalized seizure disorder managed on Dilantin. EEG performed for breakthrough seizure in the setting of his admission for a NSTEMI. METHODS: A 21 channel digitized electroencephalogram was performed in the [facility] Clinical Neurophysiology Laboratory. ?? The 10/20 international system of electrode placement was used and bipolar and referential electrode montages were recorded. ??In addition to EEG the patient was monitored for EKG and lateral/vertical eye movements. The patient was recorded during wakefulness, drowsiness, sleep, and during the activation procedures of hyperventilation and photic stimulation. The duration of the recording was 30 minutes DESCRIPTIVE TEXT: Wakefulness During the awake state with the eyes closed the background consisted of a 9-10 Hz posterior reactive rhythm that attenuated appropriately with eye opening. Beta activity was distributed diffusely with an anterior predominance. There was a normal anterior-posterior voltage gradient. With eye opening the background activity changed to a low voltage mixture of alpha, beta, and occasional theta range frequencies. There were no significant asymmetries of background activity noted. Drowsiness and Sleep With drowsiness there was some waxing and waning of the alpha rhythm with eventual replacement by a mixture of beta, alpha and theta activity. Sleep stage II was not attained. Hyperventilation . Photic Stimulation using a step-lopez increase in photic frequency varying from 1-21 Hertz resulted in bilateral driving responses at 11-13 Hertz but no appearance of abnormal activity. . EKG: EKG revealed normal sinus rhythm. INTERPRETATION: This EEG is normal during the awake and drowsy states as well as during the activation procedures of hyperventilation and photic stimulation. There was no evidence of epileptiform activity, subclinical status, or asymmetry of background. PRIOR EEG: No previous EEG reports were available. CLINICAL CORRELATION: A normal EEG does not exclude the possibility of seizures. If seizures are strongly clinically suspected please consider a prolonged, sleep-deprived EEG. CC: ANGELIA CRESPO MD COLE MAR ??Test# MR# [id number] ?? Sex: Male Referring Provider: ??Angelia Crespo MD : 1975 ?? Age: 35 ?? Hours of Sleep: 8 P.C. noon Sleep Deprived: No Location: outpt Date of study: 08/08/11 Tech: sr Patient history: 8 year history of GTC szs, usually every 6 months. ??He also was admitted Recently for a-fib with AVR, for NSTEMI, and met neurologists then. Sleep:Obtained Photic Stimulation: 1-21 Hz Step Lopez Photic Driving:Bilateral Hyperventilation: Build Up Noted Effort Given: Excellent Tech Findings: WNL awake, drowsy, asleep, HV and PS. ??HV led to some slowing And was amazingly well performed, and sleep was interrupted by his snoring. EEG REPORT Patient: Cole Mar : 1975 Date: August 09, 2011 ?? Interpreting Physician: Attending: FRANKLYN KEY MD. Resident: JEREL ZAMORA MD Referring physician: Dr. Soto BRIEF HISTORY/INDICATION FOR STUDY: ??Cole Mar is a 35 y.o. patient with PMH of hypothyroidism, hypertension, Afib with AVR, nonischemic cardiomyopathy and generalized seizure disorder managed on Dilantin. EEG performed for breakthrough seizure in the setting of his admission for a NSTEMI. METHODS: A 21 channel digitized electroencephalogram was performed in the [facility] Clinical Neurophysiology Laboratory. ?? The 10/20 international system of electrode placement was used and bipolar and referential electrode montages were recorded. ??In addition to EEG the patient was monitored for EKG and lateral/vertical eye movements. The patient was recorded during wakefulness, drowsiness, sleep, and during the activation procedures of hyperventilation and photic stimulation. The duration of the recording was 30 minutes DESCRIPTIVE TEXT: Wakefulness During the awake state with the eyes closed the background consisted of a 9-10 Hz posterior reactive rhythm that attenuated appropriately with eye opening. Beta activity was distributed diffusely with an anterior predominance. There was a normal anterior-posterior voltage gradient. With eye opening the background activity changed to a low voltage mixture of alpha, beta, and occasional theta range frequencies. There were no significant asymmetries of background activity noted. Drowsiness and Sleep With drowsiness there was some waxing and waning of the alpha rhythm with eventual replacement by a mixture of beta, alpha and theta activity. Sleep stage II was not attained. Hyperventilation . Photic Stimulation using a step-lopez increase in photic frequency varying from 1-21 Hertz resulted in bilateral driving responses at 11-13 Hertz but no appearance of abnormal activity. . EKG: EKG revealed normal sinus rhythm. INTERPRETATION: This EEG is normal during the awake and drowsy states as well as during the activation procedures of hyperventilation and photic stimulation. There was no evidence of epileptiform activity, subclinical status, or asymmetry of background. PRIOR EEG: No previous EEG reports were available. CLINICAL CORRELATION: A normal EEG does not exclude the possibility of seizures. If seizures are strongly clinically suspected please consider a prolonged, sleep-deprived EEG. I personally reviewed and interpreted the EEG in its entirety along with Dr. Kristen Zamora, neurology resident, and I agree with the above interpretation as documented. Franklyn Key MD Attending Epileptologist CC: ANGELIA CRESPO MD COLE MAR ??Test# MR# [id number] ?? Sex: Male Referring Provider: ??Angelia Crespo MD : 1975 ?? Age: 35 ?? Hours of Sleep: 8 P.C. noon Sleep Deprived: No Location: outpt Date of study: 08/08/11 Tech: sr Patient history: 8 year history of GTC szs, usually every 6 months. ??He also was admitted Recently for a-fib with AVR, for NSTEMI, and met neurologists then. Sleep:Obtained Photic Stimulation: 1-21 Hz Step Lopez Photic Driving:Bilateral Hyperventilation: Build Up Noted Effort Given: Excellent Tech Findings: WNL awake, drowsy, asleep, HV and PS. ??HV led to some slowing And was amazingly well performed, and sleep was interrupted by his snoring. Procedure Note Artis Guido - 08/08/2011 2:08 PM EST EEG REPORT Patient: Cole Mar : 1975 Date: August 09, 2011 Interpreting Physician: Attending: FRANKLYN KEY MD. Resident: EMELIA ZAMORA MD Referring physician: Dr. Soto BRIEF HISTORY/INDICATION FOR STUDY: Cole Mar is a 35 y.o. patientwith PMH of hypothyroidism, hypertension, Afib with AVR, nonischemiccardiomyopathy and generalized seizure disorder managed on Dilantin. EEGperformed for breakthrough seizure in the setting of his admission for aNSTEMI. METHODS: A 21 channel digitized electroencephalogram was performed in [facility] Clinical Neurophysiology Laboratory. The 10/20international system of electrode placement was used and bipolar andreferential electrode montages were recorded. In addition to EEG thepatient was monitored for EKG and lateral/vertical eye movements. Thepatient was recorded during wakefulness, drowsiness, sleep, and during theactivation procedures of hyperventilation and photic stimulation. Theduration of the recording was 30 minutes DESCRIPTIVE TEXT: Wakefulness During the awake state with the eyes closed the background consisted of a9-10 Hz posterior reactive rhythm that attenuated appropriately with eyeopening. Beta activity was distributed diffusely with an anteriorpredominance. There was a normal anterior-posterior voltage gradient. Witheye opening the background activity changed to a low voltage mixture ofalpha, beta, and occasional theta range frequencies. There were nosignificant asymmetries of background activity noted. Drowsiness and Sleep With drowsiness there was some waxing and waning of the alpha rhythm witheventual replacement by a mixture of beta, alpha and theta activity. Sleepstage II was not attained. Hyperventilation . Photic Stimulation using a step-lopez increase in photic frequency varyingfrom 1- 21 Hertz resulted in bilateral driving responses at 11-13 Hertz butno appearance of abnormal activity. . EKG: EKG revealed normal sinus rhythm. INTERPRETATION: This EEG is normal during the awake and drowsy states as well as duringthe activation procedures of hyperventilation and photic stimulation.There was no evidence of epileptiform activity, subclinical status, orasymmetry of background. PRIOR EEG: No previous EEG reports were available. CLINICAL CORRELATION: A normal EEG does not exclude the possibility ofseizures. If seizures are strongly clinically suspected please consider aprolonged, sleep- deprived EEG. I personally reviewed and interpreted the EEG in its entirety along withDr. Kristen Zamora, neurology resident, and I agree with the aboveinterpretation as documented. Franklyn Key MD Attending Epileptologist CC: ANGELIA CRESPO MD COLE MAR Test# MR# [id number] Sex: Male Referring Provider: Angelia Crespo MD : 1975 Age: 35 Hours of Sleep: 8 P.C. noon Sleep Deprived: No Location: outpt Date of study: 08/08/11 Tech: sr Patient history: 8 year history of GTC szs, usually every 6 months. Coleen was admitted Recently for a-fib with AVR, for NSTEMI, and met neurologists then. Sleep:Obtained Photic Stimulation: 1-21 Hz Step Lopez Photic Driving:Bilateral Hyperventilation: Build Up Noted Effort Given: Excellent Tech Findings: WNL awake, drowsy, asleep, HV and PS. HV led to someslowing And was amazingly well performed, and sleep was interrupted by hissnoring. Robby Allen MD NEUROLOGY ORDERABLES documented in this encounter Visit Diagnoses Diagnosis Seizure disorder- Primary Unspecified epilepsy without mention of intractable epilepsy Seizure disorder- Primary Unspecified epilepsy without mention of intractable epilepsy documented in this encounter Care Teams Art Instructor Relationship Specialty Start Date End Date Angelia Crespo MD [address] [place] [address] PCP - General 08/01/11 09/19/11 documented as of this encounter
--- OUTSIDE RECORDS SUMMARY | 2024-04-14 13:55 | XMS_ITS | Encounter Summary ---
[place] [address] Care Team Providers Care Informatics Specialist Name Role Phone David Templeton MD Primary Care Provider [phone] Reason for Visit * Reason Onset Date Comments Medication Refill 09/04/2011 Encounter Details Date Type Department Care Team (Late st Contact Info) Description 09/04/2011 Refill Cardiology at [address] [phone] Robby Allen MD [facility] [place] [address] Medication Refill Social History Tobacco Use Types [...] fibrillation documented in this encounter Care Teams Informatics Specialist Relationship Specialty Start Date End Date David Templeton MD [address] [place], [place] [id number] PCP - General 08/01/11 09/19/11 documented as of this encounter
--- OUTSIDE RECORDS SUMMARY | 2024-04-14 13:55 | XMS_ITS | Encounter Summary ---
[place] [address] Care Team Providers Care Rotary Operator Name Role Phone Debbie Dukes MD Primary Care Provider [phone] Reason for Visit * Reason Comments Procedure outpatient eeg Encounter Details Date Type Department Care Team (Late st Contact Info) Description 08/08/2011 12:30 PM EST Office [place] [phone], [place] [address] Angelia Crespo MD [address] [id number] Seizure disorder (Primary Dx) Discharge Disposition: Home Social History [...] as of this encounter Progress Notes * Antionette Pickett RN - 09/13/2011 11:28 AM EST EEG report located under Procedure documented in this encounter Procedure Notes * Artis Guido - 08/08/2011 2:08 PM ESTAssociated Order(s): EEG AWAKE OR ASLEEP Procedure(s): EEG INNC. RECORDING AWAKE AND ASLEEP, W. HYPERVENT/PHOTIC STIMU PRFM Pre-Procedure Diagnose(s): Seizure disorder Post-Procedure Diagnose(s): Seizure disorder EEG REPORT Patient: Cole Mar : 1975 Date: August 09, 2011 Interpreting Physician: Attending: FRANKLYN KEY MD. Resident: JEREL ZAMORA MD Referring physician: Dr. Soto BRIEF HISTORY/INDICATION FOR STUDY: Cole Mar is a 35 y.o. patient with PMH of hypothyroidism, hypertension, Afib with AVR, nonischemic cardiomyopathy and generalized seizure disorder managed on Dilantin. EEG performed for breakthrough seizure in the setting of his admission for a NSTEMI. METHODS: A 21 channel digitized electroencephalogram was performed in the [facility] Clinical Neurophysiology Laboratory. The 10/20 international system of electrode placement was used and bipolar and referential electrode montages were recorded. In addition to EEG the patient was monitored for EKGand lateral/vertical eye movements. The patient was recorded during wakefulness, drowsiness, sleep,and during the activation procedures of hyperventilation and photic stimulation. The duration of the recording was 30 minutes DESCRIPTIVE TEXT: Wakefulness During the awake state with the eyes closed the background consisted of a 9-10 Hz posterior reactive rhythm that attenuated appropriately with eye opening. Beta activity was distributed diffusely with an anterior predominance. There was a normal anterior-posterior voltage gradient. With eye openingthe background activity changed to a low voltage mixture of alpha, beta, and occasional theta rangefrequencies. There were no significant asymmetries of background activity noted. Drowsiness and Sleep With drowsiness there was some waxing and waning of the alpha rhythm with eventual replacement by amixture of beta, alpha and theta activity. Sleep [...] ANGELIA CRESPO MD COLE MAR Test# MR# [id number] Sex: Male Referring Provider: Angelia Crespo MD : 1975 Age: 35 Hours of Sleep: 8 P.C. noon Sleep Deprived: No Location: outpt Date of study: 08/08/11 Tech: sr Patient history: 8 year history of GTC szs, usually every 6 months. He also was admitted Recently for a-fib with AVR, for NSTEMI, and met neurologists then. Sleep:Obtained Photic Stimulation: 1-21 Hz Step Lopez Photic Driving:Bilateral Hyperventilation: Build Up Noted Effort Given: Excellent Tech Findings: WNL awake, drowsy, asleep, HV and PS. HV led to some slowing And was amazingly well performed, and sleep was interrupted by his snoring. documented in this encounter Plan of Treatment Not on file documented as of this encounter Procedures Procedure Name Priority Date/Time Associated Diagnosis Comments EEG INNC. RECORDING AWAKE AND ASLEEP, W. HYPERVENT/PHOTIC STIMU PRFM Routine 01/01/2012 11:28 AM EDT Seizure disorder documented in this encounter Results * EEG INNC. RECORDING [...] channel digitized electroencephalogram was performed in the [facility] Clinical Neurophysiology Laboratory. ?? The 10/20 [...] ANGELIA CRESPO MD COLE MAR ??Test# MR# [id number] ?? Sex: Male Referring Provider: ??Angelia Crespo [...] channel digitized electroencephalogram was performed in the [facility] Clinical Neurophysiology Laboratory. ?? The 10/20 [...] MD Attending Epileptologist CC: ANGELIA CRESPO MD YESY,COLE Meng ??Test# MR# [id number] ?? Sex: Male Referring Provider: ??Angelia Crespo [...] 21 channel digitized electroencephalogram was performed in [facility] Clinical Neurophysiology Laboratory. The 10/20international system [...] ANGELIA CRESPO MD COLE MAR Test# MR# [id number] Sex: Male Referring Provider: Angelia Crespo MD [...] epilepsy documented in this encounter Care Teams Rotary Operator Relationship Specialty Start Date End Date Debbie Dukes MD [address] [place] [address] PCP - General 09/20/11 07/31/13 documented as of this encounter
--- OUTSIDE RECORDS SUMMARY | 2024-04-14 13:55 | XMS_ITS | Encounter Summary ---
Author Organization [facility] Address [place] [id number] Care Team Providers Care Print Decorator Name Role Phone Debbie Dukes MD Primary Care Provider [phone] Reason for Visit * Reason Onset Date Comments Medication Refill 01/13/2012 Encounter Details Date Type Department Care Team (Late st Contact Info) Description 01/13/2012 Refill Cardiology at [address] [phone] Usha Reilly MD [facility] [address] Medication Refill Social History Tobacco Use Types [...] encounter Miscellaneous Notes * Telephone Encounter - Deepika Lin LPN - 01/15/2012 8:18 AM EDTFrom: YESYBISMARK Meng To: Usha Reilly MD Sent: Sat Jan 13, 2012 1:41 PM Subject: Medication Renewal Request Original authorizing provider: MD Clinton ELseun Mar would like a refill of the following medications: metoprolol succinate (TOPROL-XL) 100 mg XL tablet [USHA REILLY MD] Preferred pharmacy: [facility] [phone] Comment: also need refills for the Cartia 180mg from doctor Alejandro documented in this encounter Plan of Treatment Not on file documented as of this encounter Visit Diagnoses Diagnosis Atrial fibrillation- Primary documented in this encounter Care Teams Print Decorator Relationship Specialty Start Date End Date Debbie Dukes MD [address] [place] [address] PCP - General 09/20/11 07/31/13 documented as of this encounter
--- OUTSIDE RECORDS SUMMARY | 2024-04-14 13:55 | XMS_ITS | Encounter Summary ---
[place] [address] Care Team Providers Care Steam Shovel Oiler Name Role Phone Debbie Dukes MD Primary Care Provider [phone] Encounter Details Date Type Department Care Team (Late st Contact Info) Description 01/12/2012 12:45 PM EDT [place] [id number] Alexa Moyer APRN [facility] [address] Epilepsy; High risk medication use Discharge Disposition: [...] Sign Reading Time Taken Comments Blood Pressure 123/76 01/12/2012 1:06 PM EDT Pulse 71 01/12/2012 1:06 PM EDT Temperature - - Respiratory Rate - - Oxygen Saturation - - Inhaled Oxygen Concentration - - Weight 120.8 kg (266 lb 6.4 oz) 01/12/2012 1:06 PM EDT Height 182.9 cm (6') 01/12/2012 1:06 PM EDT repo rted Body Mass Index 36.13 01/12/2012 1:06 PM EDT documented in this encounter Progress Notes * Aron Duboseen ZAY Meng - 01/12/2012 1:44 PM EDT Subjective: Patient ID: Cole Mar is a 36 y.o. male. HPI Cole returns for a follow up visit. Since increasing Lamictal, he has not had any seizures. Heis tolerating the medication well. He has no side effects although he has some gingival hyperplasia. He has had auras consisting of ronnie vu which he has had several times per month but no alteration in consciousness. He is in the process of moving into his grandmother's home which is closeto his parent's home. 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 Review of Systems Constitutional: He has gingival hyperplasia Cardiovascular: Negative for palpitations. Gastrointestinal: occasional nausea with chewable dilantin Neurological: No seizures except for auras. Psychiatric/Behavioral: Positive for dysphoric mood. Objective: Physical Exam Blood pressure 123/76, pulse 71, height 182.9 cm (6'), weight 120.838 kg (266 lb 6.4 oz). Constitutional: He is oriented to person, place, and time and well-developed, well-nourished, and in no distress. Eyes: EOM are normal. Neurological: He is oriented to person, place, and time. He has a normal Zcmyfu-Ydfj-Zvffbr Test and a normal Tandem Gait Test. Gait normal. Skin: No rash noted. Psychiatric: Mood normal. Neurologic Exam Mental Status Oriented to person, place, and time. Level of consciousness: alert Cranial Nerves CN II Visual glez full to confrontation. CN III, IV, Extraocular motions are normal. Nystagmus: one beat of nystagmus noted in both directions CN VII Facial expression full, symmetric. Gait, Coordination, and Reflexes Gait Gait: normal Coordination Finger to nose coordination: normal Tandem walking coordination: normal Tremor Resting tremor: absent Outpatient prescriptions marked as taking for the 01/12/12 encounter (Follow-Up) with GILBERT, KARENL Medication Sig Dispense Refill ??? phenytoin (DILANTIN) 100 mg ER capsule Take 2 capsules by mouth. Take 1 in AM and 2 in PM 90 tablet 5 ??? phenytoin (DILANTIN) 50 mg tablet Take 50 mg by mouth every morning. ??? hydrochlorothiazide (HYDRODIURIL) 12.5 mg tablet Take 12.5 mg by mouth daily. ??? DILTiazem (CARDIZEM CD) 180 mg 24 hr capsule Take 180 mg by mouth 2 times daily. ??? lamoTRIgine (LAMICTAL) 100 mg tablet Take 1 tablet by mouth. Take 2 in AM and 1 in PM Indications: Epilepsy 90 tablet 5 ??? DISCONTD: phenytoin (DILANTIN) 100 mg ER capsule Take 2 capsules by mouth. Take 1 in AM and 2 in PM 90 tablet 5 ??? levothyroxine (SYNTHROID) 200 mcg tablet Take 200 mcg by mouth daily. ??? metoprolol succinate (TOPROL-XL) 100 mg XL tablet Take 1 tablet by mouth daily. 90 tablet 1 ??? aspirin (ENTERIC COATED ASPIRIN) 325 mg EC tablet Take 1 tablet by mouth daily. 30 tablet 3 ??? lisinopril (PRINIVIL;ZESTRIL) 5 mg tablet Take 5 mg by mouth daily. I reviewed the following: Labs I am checking lamictal, CBC, hepatic function and dilantin level today. He recently had a dilantin level of 32 in early November Depression score 7 QOL score 6/10 Assessment and Plan: Cole is doing much better since getting to a higher dose of lamictal. He has, however, had periodsof months with no seizures in the past and then had a cluster so we will need to be cautious. We discussed driving issues and he has been informed that he is not to be driving until 6 months seizure free. He is agreeable. His social situation is improving. He will return in 3 months for follow up and discussion about resuming driving. documented in this encounter Miscellaneous Notes * Miscellaneous - Kaela Guido - 01/17/2012 6:16 PM EDT * Miscellaneous - Hay, Rental Car Ferry Driver - 01/17/2012 6:16 PM EDT documented in this encounter Plan of Treatment Not on file documented as of this encounter Procedures Procedure Name Priority Date/Time Associated Diagnosis Comments LAMOTRIGINE LVL Routine 01/12/2012 1:58 PM EDT Epilepsy HEMOGRAM Routine 01/12/2012 1:58 PM EDT High risk medication use PHENYTOIN LEVEL, TOTAL AND FREE Routine 01/12/2012 1:58 PM EDT Epilepsy HEPATIC FUNCTION PANEL Routine 01/12/2012 1:58 PM EDT High risk medication use documented in this encounter Results * (ABNORMAL) Hepatic Function Panel (01/12/2012 1:58 PM EDT) Total Protein 7.5 6.4 - 8.3 gm/dL CERNER MILLENNIUM Albumin 4.4 3.2 - 5.2 gm/dL CERNER MILLENNIUM AST 30 0 - 39 unit/L CERNER MILLENNIUM ALT 39 0 - 55 unit/L CERNER MILLENNIUM Alk Phos 124(H) 40 - 120 unit/L CERNER MILLENNIUM Total Bilirubin 0.3 0.2 - 1.3 mg/dL CERNER MILLENNIUM Bili, Direct 0.1 0.0 - 0.3 mg/dL CERNER MILLENNIUM Blood specimen (specimen) 01/12/2012 1:58 PM EDT 01/12/2012 2:02 PM EDT Narrative Resulting Agency Comment Spec In Lab Richar Prabhakar MD CHEMISTRY ORDERABLES CERNER MILLENNIUM * (ABNORMAL) Hemogram (01/12/2012 1:58 PM EDT) WBC 5.0 4.0 - 10.0 x10(3)/mcL CERNER MILLENNIUM RBC 4.97 4.63 - 6.08 x10(6)/mcL CERNER MILLENNIUM Hemoglobin 16.7 13.7 - 17.5 gm/dL CERNER MILLENNIUM Hematocrit 46.1 40.0 - 51.0 % CERNER MILLENNIUM MCV 92.8(H) 79.0 - 92.0 fL CERNER MILLENNIUM MCH 33.6(H) 25.6 - 32.2 pg CERNER MILLENNIUM MCHC 36.2 32.0 - 36.5 gm/dL CERNER MILLENNIUM Platelets 234 145 - 370 x10(3)/mcL CERNER MILLENNIUM RDWSD 43.3 35.0 - 46.0 fL CERNER MILLENNIUM RDWCV 12.9 10.9 - 14.4 % CERNER MILLENNIUM MPV 9.5 9.0 - 12.0 fL CERNER MILLENNIUM Blood specimen (specimen) 01/12/2012 1:58 PM EDT 01/12/2012 2:02 PM EDT Narrative Resulting Agency Comment Spec In Lab Richar Prabhakar MD HEMATOLOGY ORDERABLE S [facility] * (ABNORMAL) Phenytoin level, total and free (01/12/2012 1:58 PM EDT) Phenytoin Lvl 33.9(Crit ical) 10.0 - 20.0 mg/L CERNER MILLENNIUM Comment: Result rechecked. Called by: ARTURO, Read back by:DR Vanna Mcqueen, Date/Time:01/12/12 16:12. Theraputic range: ??10-20 mg/L Toxic: ??> 25 mg/L Patients with renal dysfunction (e.g.creatinine clearance < 30 mls/min) may show falsely elevated results due to accumulation of metabolites in renal failure Phenytoin, Free 2.59(H) 1.00 - 2.00 mg/L CERNER MILLENNIUM Comment: Therapeutic range: ? Free phenytoin: ??1.00-2.00 mg/L ? % Free phenytoin: ??8-12% Toxic range: ? Free phenytoin: ??>3.00 mg/L Phenytoin Free% 8 8 - 12 % MIKO COMER Blood specimen (specimen) 01/12/2012 1:58 PM EDT 01/12/2012 2:02 PM EDT Narrative Resulting Agency Comment Spec In Lab Richar Prabhakar MD CHEMISTRY ORDERABLES Performing Organization Address City/[facility] Co de Phone Number THERON COMER * Lamotrigine Lvl-[place] (01/12/2012 1:58 PM EDT) Lamotrigine Lvl 1.2 2.5 - 15.0 mcg/mL THERON COMER Comment: Test Performed by: [facility] Dpt of Lab Med and Pathology [address] [place] [address] Safety And Skill Based Pay Manager: Venancio Davies III, M.D. Blood specimen (specimen) 01/12/2012 1:58 PM EDT 01/12/2012 2:29 PM EDT Narrative Resulting Agency Comment Spec In Lab Richar Prabhakar MD CHEMISTRY ORDERABLES Performing Organization Address City/[facility] Co de Phone Number THERON COMER documented in this encounter Visit Diagnoses Diagnosis Epilepsy Unspecified epilepsy without mention of intractable epilepsy High risk medication use Encounter for long-term (current) use of other medications documented in this encounter Care Teams Steam Shovel Oiler Relationship Specialty Start Date End Date Debbie Dukes MD [address] [place] [address] PCP - General 09/20/11 07/31/13 documented as of this encounter
--- OUTSIDE RECORDS SUMMARY | 2024-04-14 13:55 | XMS_ITS | Encounter Summary ---
[place] [address] Care Team Providers Care Director Of Catering Name Role Phone Debbie Dukes MD Primary Care Provider [phone] Encounter Details Date Type Department Care Team (Late st Contact Info) Description 11/16/2011 2:15 PM EST [place] [id number] Alexa Moyer APRN [facility] [place] [address] Epilepsy (Primary Dx) Discharge Disposition: Home Social History [...] Sign Reading Time Taken Comments Blood Pressure 125/63 11/16/2011 2:51 PM EST Pulse 65 11/16/2011 2:51 PM EST Temperature - - Respiratory Rate - - Oxygen Saturation - - Inhaled Oxygen Concentration - - Weight 113.4 kg (250 lb) 11/16/2011 2:51 PM EST Height 182.9 cm (6') 11/16/2011 2:51 PM EST Body Mass Index 33.91 11/16/2011 2:51 PM EST documented in this encounter Patient Instructions * Patient Instructions* Alexa Dubose APRN - 11/16/2011 3:42 PM EST Lamictal 100mg Take 100mg twice daily for 1 week then 200mg in the morning and 100mg in the evening (take early evening) Ok to take benadryl 25-50mg at night as needed Take brand name dilantin. documented in this encounter Progress Notes * Alexa Dubose APRN - 11/16/2011 4:36 PM EST Subjective: Patient ID: Cole Mar is a 36 y.o. male. VELIA Galvan returns for a follow up visit. He had not been seen for a few years. He had been doing well in terms of seizures but over the past few months he has had an increase. He was hospitalized forA fib and at that point was starting to have more seizures. Interestingly, when he was first diagnosed with seizures they occurred after a bout of A fib in 2003. He was started on Lamictal recently but is still having quite a few seizures. He has had auras consisting of ronnie vu which he has had several times per month, complex partial seizures and secondarily generalized tonic clonic seizures. Heis on a low dose of lamictal but has had no side effects. He was switched to a generic phenytoin. He recently went through a divorce and has custody of his two children and recently moved upstairs from his parents. Review of Systems Constitutional: Positive for fatigue. Cardiovascular: Negative for palpitations. Gastrointestinal: Negative. Neurological: Positive for seizures and headaches. Psychiatric/Behavioral: Positive for sleep disturbance and dysphoric mood. Objective: Physical Exam Constitutional: He is oriented to person, place, and time and well-developed, well-nourished, and in no distress. Eyes: EOM are normal. Neurological: He is oriented to person, place, and time. He has a normal Uluzko-Chuk-Tthxeh Test and a normal Tandem Gait Test. Gait normal. Skin: No rash noted. Psychiatric: Mood normal. Neurologic Exam Mental Status Oriented to person, place, and time. Level of consciousness: alert Cranial Nerves CN II Visual glez full to confrontation. CN III, IV, Extraocular motions are normal. Nystagmus: none CN VII Facial expression full, symmetric. Gait, Coordination, and Reflexes Gait Gait: normal Coordination Finger to nose coordination: normal Tandem walking coordination: normal Tremor Resting tremor: absent I reviewed the following: Labs and Imaging- Last MRi in September showed some scattered white matter changes. I am checking lamictal and dilantin levels today. He had LFTs and CBC last week. Depression score 8 QOL score 7/10 Assessment and Plan: Cole has been having quite a few seizures. I am recommending that he increase the lamictal from 75mg BID to 100mg BID then in one week to 300mg per day. He will also go back on brand name dilantin. He will return in 2 months for further assessment. He is agreeable with this plan. We discussed driving issues and he has been informed that he is not to be driving until 6 months seizure free. documented in this encounter Miscellaneous Notes * Miscellaneous - Kaela Guido - 11/20/2011 2:53 PM EST documented in this encounter Plan of Treatment Not on file documented as of this encounter Procedures Procedure Name Priority Date/Time Associated Diagnosis Comments LAMOTRIGINE LVL Routine 11/16/2011 4:04 PM EST Epilepsy PHENYTOIN LEVEL, TOTAL AND FREE Routine 11/16/2011 4:04 PM EST Epilepsy documented in this encounter Results * Phenytoin level, total and free (11/16/2011 4:04 PM EST) Phenytoin Lvl 16.0 10.0 - 20.0 mg/L [facility] Comment: Theraputic range: ??10-20 mg/L Toxic: ??> 25 mg/L Patients with renal dysfunction (e.g.creatinine clearance < 30 mls/min) may show falsely elevated results due to accumulation of metabolites in renal failure Phenytoin, Free 1.39 1.00 - 2.00 mg/L CERNER MILLENNIUM Comment: Therapeutic range: ? Free phenytoin: ??1.00-2.00 mg/L ? % Free phenytoin: ??8-12% Toxic range: ? Free phenytoin: ??>3.00 mg/L Phenytoin Free% 9 8 - 12 % CERN ER MILLENNIUM Blood specimen (specimen) 11/16/2011 4:04 PM EST 11/16/2011 4:15 PM EST Narrative Resulting Agency Comment Spec In Lab Richar Prabhakar MD CHEMISTRY ORDERABLES Performing Organization Address City/[facility]/ZIP Co de Phone Number THERON COMER * Lamotrigine Lvl-[place] (11/16/2011 4:04 PM EST) Lamotrigine Lvl 0.3 2.5 - 15.0 mcg/mL CERNER MILLENNIUM Comment: Test Performed by: [facility] Dpt of Lab Med and Pathology [address] [place] [address] Commercial Reporter: Venancio Davies III, M.D. Blood specimen (specimen) 11/16/2011 4:04 PM EST 11/17/2011 8:39 AM EST Narrative Resulting Agency Comment Spec In Lab Richar Prabhakar MD CHEMISTRY ORDERABLES THERON COMER documented in this encounter Visit Diagnoses Diagnosis Epilepsy- Primary Unspecified epilepsy without mention of intractable epilepsy documented in this encounter Care Teams Director Of Catering Relationship Specialty Start Date End Date Debbie Dukes MD [address] [place] [address] PCP - General 09/20/11 07/31/13 documented as of this encounter
--- OUTSIDE RECORDS SUMMARY | 2024-04-14 13:55 | XMS_ITS | Encounter Summary ---
[place] [address] Care Team Providers Care Tariff Compiling Clerk Name Role Phone Debbie Dukes MD Primary Care Provider [phone] Encounter Details Date Type Department Care Team (Late st Contact Info) Description 11/15/2011 [place] [address] Alexa Moyer APRN [facility] [place] [address] Social History Tobacco Use Types Packs/Day Years [...] on filedocumented in this encounter Care Teams Tariff Compiling Clerk Relationship Specialty Start Date End Date Debbie Dukes MD [address] [place] [address] PCP - General 09/20/11 07/31/13 documented as of this encounter
--- OUTSIDE RECORDS SUMMARY | 2024-04-14 13:55 | XMS_ITS | Encounter Summary ---
Author Organization [place] [address] Care Team Providers Care Creamery Worker Name Role Phone David Templeton MD Primary Care Provider [phone] Encounter Details Date Type Department Care Team (Late st Contact Info) Description 08/01/2011 Orders Only Cardiology at [address] [phone] Robby Allen MD [facility] [place] [address] Social History Tobacco Use Types Packs/Day Years [...] Procedure Name Priority Date/Time Associated Diagnosis Comments FILM LIBRARY STORAGE ONLY DX CHEST Routine 08/01/2011 9:27 AM EST documented in this encounter Results * FILM LIBRARY- STORAGE ONLY DX CHEST (08/01/2011 9:27 AM EST) 08/01/2011 9:27 AM EST Narrative RAD - 01/29/2014 1:02 PM EDT This is a non-reportable exam. Procedure Note Price Aceves - 01/29/2014 This is a non-reportable exam. Robby Allen MD IM FILM LIBRARY ORD ERABLES [facility] [address] [place] [address] documented in this encounter Visit Diagnoses Not on filedocumented in this encounter Care Teams Creamery Worker Relationship Specialty Start Date End Date David Templeton MD [address] [place] [address] PCP - General 08/01/11 09/19/11 documented as of this encounter
--- OUTSIDE RECORDS SUMMARY | 2024-04-14 13:55 | XMS_ITS | Continuity of Care Document ---
Author Name [facility] Organization [facility] Care Team Providers Care Chiller Technician Name Role Phone [facility] Unavailable Unavailable Problems Combined list of problems from Department of Defense and Veterans Affairs facilities. It does not include entries that were removed or entered in error. Problem Status Onset Date Problem Type Date of Resolution Comments Source AF- Atrial Fibrillation (SCT [id number]) Active Condition Sep 25, 2018 Entered By: JORDEN MORA Comment: [facility] Cardiomyopathy Active Condition Sep Entered By: JORDEN MORA Comment: 2007 [facility] Depressive disorder Active Condition Sep 25, 2018 Entered By: JORDEN MORA Comment: no meds [facility] Epilepsy Active Condition Sep 25 Entered By: JORDEN MORA Comment: Dx 2009, no hx trauma [facility] Ess[facility] hypertension [facility] Condition [facility] Family History of Diabetes Mellitus Active Condition Sep 12 Entered By: ORLY SNELL Comment: Mom with Type 2 DM [facility] Family History of Psychiatric Condition Active Condition Sep 12, 2001 Entered By: ORLY SNELL Comment: Dad with depression [facility] Genital warts Active Condition Sep Entered By: JORDEN MORA Comment: 2018 cryo x3 [facility] GERD - Gastro-Esophageal Reflux Disease (SCT [id number]) Active Condition [facility] Hypothyroidism (SNOMED CT 32790760) Active Condition [facility] Low back pain Active Condition [facility] Mitral valve regurgitation Active Condition Sep 25, 2018 Entered By: JORDEN MORA Comment: Dx 2007, monitored for several yrs- stable [facility] Obstructive sleep apnea syndrome Active Condition Sep 25, 2018 Entered By: JORDEN MORA Comment: Not wearing CPAP [facility] Pain of right knee joint Active Condition [facility] Varicose veins Active Condition [facility] Adjustment disorder with mixed emotional features Inactive Condition 05/18/2021 [facility] Diabetes Mellitus Type II or unspecified Inactive Condition 09/12/2001 Sep 12, 2001 Entered By: ORLY SNELL Comment: Mom with Type 2 DM [facility] Girlfriend relationship problem Inactive Condition 05/18/2021 [facility] Well adult (SNOMED CT [id number]) Inactive Condition 05/18/2021 [facility] Diagnosis: ICD-10-CM 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 Active Diagnosis [facility] Diagnosis: ICD-10-CM Z48.89 Encounter for other specified surgical aftercare Active Diagnosis [facility] Diagnosis: ICD-10-CM Z01.818 Encounter for other preprocedural examination Active Diagnosis [facility] Diagnosis: ICD-10-CM I48.91 Unspecified atrial fibrillation Active Diagnosis [facility] Diagnosis: ICD-10-CM I83.12 Varicose veins of left lower extremity with inflammation Active Diagnosis [facility] Diagnosis: ICD-10-CM Z01.810 Encounter for preprocedural cardiovascular examination Active Diagnosis [facility] Diagnosis: ICD-10-CM M79.661 Pain in right lower leg Active Diagnosis [facility] Diagnosis: ICD-10-CM I10 Essential (primary) hypertension [facility] Diagnosis: ICD-10-CM Z23 Encounter for immunization Active [facility] Diagnosis: ICD-10-CM I86.8 Varicose veins of other specified sites Active Diagnosis [facility] Diagnosis: ICD-10-CM L03.011 Cellulitis of right finger Active Diagnosis [facility] Diagnosis: ICD-10-CM L30.9 Dermatitis, unspecified Active Diagnosis [facility] Diagnosis: ICD-10-CM Z13.89 Encounter for screening for other disorder Active Diagnosis [facility] Diagnosis: ICD-10-CM L50.9 Urticaria, unspecified Active Diagnosis [facility] Diagnosis: ICD-10-CM M54.50 Low back pain, unspecified Active Diagnosis [facility] Diagnosis: ICD-10-CM Z04.9 Encounter for examination and observation for unsp reason Active Diagnosis [facility] Medications Combined list of outpatient medications from Department of Defense and Veterans Affairs facilities.Medications provided include 1) outpatient medications from the last 15 months, and 2) patient-reported medications. Medication Details Route Status Patient Instructions Prescription Expires Prescription Number Last Dispense Date Ordering Provider Order Date Order Qty Source aspirin (U/D) 325 MG ORAL TAB TAKE ONE TABLET BY MOUTH EVERY DAY TO PREVENT STROKE/H EART ATTACK OR FOR PAIN/INF LAMMATIO N/SWELLI NG Active 12/31/2024 [id number] NATE BOLANOS 2023 100 [facility] aspirin (U/D) 325 MG ORAL TAB TAKE ONE TABLET BY MOUTH EVERY DAY TO PREVENT STROKE/H EART ATTACK OR FOR PAIN/INF LAMMATIO N/SWELLI NG Discont inued 01/12/2024 [id number] VELMA PERSAUD 2023 100 [facility] aspirin (U/D) 325 MG ORAL TAB TAKE ONE TABLET BY MOUTH EVERY DAY TO PREVENT STROKE/H EART ATTACK OR FOR PAIN/INF LAMMATIO N/SWELLI NG 01/12/2024 [id number] VELMA PERSAUD 2022 100 [facility] ASPIRIN 325MG TAB ASPIRIN 325MG TAB Disconti nued TAKE ONE TABLET BY MOUTH EVERY DAY TO PREVENT STROKE/H EART ATTACK OR FOR PAIN/INF LAMMATIO N/SWELLI NG Dec 31, 2023 100 Dec 31, 2024 [id number] Feb 27, 2024 [facility] ORAL DISCONT INUED BY SHAI Mata 12/31/2024 [id number] 4 RUTHY BOLANOS 2023 100 [facility] ASPIRIN 325MG TAB ASPIRIN 325MG TAB Disconti nued TAKE ONE TABLET BY MOUTH EVERY DAY TO PREVENT STROKE/H EART ATTACK OR FOR PAIN/INF LAMMATIO N/SWELLI NG Jan 11, 2023 100 Jan 12, 2024 [id number] Dec 09, 2023 VELMA PERSAUD [facility] ORAL DISCONT INUED 01/12/2024 [id number] 4 Maribel PERSAUD 2022 100 [facility] CARDIZEM CD (BRAND) 360 MG ORAL CP24 TAKE ONE CAPSULE BY MOUTH EVERY DAY FOR HEART RATE/BLO OD PRESSURE Active 12/31/2024 [id number] NATE BOLANOS 2023 90 [facility] CARDIZEM CD (BRAND) 360 MG ORAL CP24 TAKE ONE CAPSULE BY MOUTH EVERY DAY FOR HEART RATE/BLO OD PRESSURE Discont inued 05/02/2024 [id number] RANCHO NIEVES 2023 90 [facility] CARDIZEM CD (BRAND) 360 MG ORAL CP24 TAKE ONE CAPSULE BY MOUTH EVERY DAY FOR HEART RATE/BLO OD PRESSURE Active 05/02/2024 [id number] 3 RANCHO NIEVES 2022 90 [facility] CARDIZEM CD (BRAND) 360 MG ORAL CP24 TAKE ONE CAPSULE BY MOUTH EVERY DAY FOR HEART RATE/BLO OD PRESSURE Discont inued 06/07/2023 [id number] 3 MARY BETH SORTO 2022 90 [facility] CHLORHEXIDI NE GLUCONATE 0.12% RINSE,ORAL CHLORHEX IDINE GLUCONAT E 0.12% RINSE,OR AL Active RINSE 1 CAPFUL (15ML) BY MOUTH TWICE A DAY PERIDONT AL DISEASE May 03, 2023 480 May 03, 2024 [id number] Oct 06, 2023 RANCHO NIEVES [facility] ORAL ACTIVE 05/03/2024 [id number] RANCHO NIEVES 2022 480 [facility] CHLORHEXIDI NE GLUCONATE 0.12% RINSE,ORAL CHLORHEX IDINE GLUCONAT E 0.12% RINSE,OR AL Disconti nued RINSE 1 CAPFUL (15ML) BY MOUTH TWICE A DAY FOR DENTAL INFECTIO N FOR DENTAL INFECTIO N May 02, 2023 480 May 02, 2024 [id number] May 02, 2023 [facility] ORAL DISCONT INUED 05/02/2024 [id number] MARY BETH SORTO [address] [facility] Chlorhexidi ne Gluconate, 0.12%, Mouthwash RINSE 1 CAPFUL (15ML) BY MOUTH TWICE A DAY Active 05/03/2024 [id number] 4 RANCHO NIEVES 2023 480 [facility] Chlorhexidi ne Gluconate, 0.12%, Mouthwash RINSE 1 CAPFUL (15ML) BY MOUTH TWICE A DAY FOR DENTAL INFECTIO N Discont inued 05/02/2024 [id number] MARY BETH SORTO 2022 480 [facility] CHOLECALCIF (VIT D3) 1,000 UNIT ORAL TAB TAKE ONE TABLET BY MOUTH ONCE DAILY Active 01/16/2025 [id number] 4 NATE BOLANOS 2023 100 [facility] CHOLECALCIF (VIT D3) 1,000 UNIT ORAL TAB TAKE ONE TABLET BY MOUTH ONCE DAILY Discont inued 12/16/2023 [id number] 4 VELMA PERSAUD 2023 100 [facility] CHOLECALCIF RHINA 25MCG (1,000UNIT) TAB CHOLECAL CIFEROL 25MCG (1,000UN IT) TAB Active TAKE ONE TABLET BY MOUTH ONCE DAILY Jan 16, 2024 100 Jan 16, 2025 [id number] Jan 16, 2024 CARISA BOLANOS [facility] ORAL ACTIVE 01/16/2025 [id number] 4 RUTHY BOLANOS 2023 100 [facility] CHOLECALCIF RHINA 25MCG (1,000UNIT) TAB CHOLECAL CIFEROL 25MCG (1,000UN IT) TAB Disconti nued TAKE ONE TABLET BY MOUTH ONCE DAILY Dec 15, 2022 100 Dec 16, 2023 [id number] Oct 13, 2023 VELMA PERSAUD [facility] ORAL DISCONT INUED 12/16/2023 [id number] Maribel PERSAUD ICHAEL 2022 100 [facility] DILTIAZEM (EQV-TIAZAC AB4) 360MG 24HR CAP DILTIAZE M (EQV-TIA JOYCE AB4) 360MG 24HR CAP Active TAKE ONE CAPSULE BY MOUTH EVERY DAY FOR HEART RATE/BLO OD PRESSURE Dec 31, 2023 90 Dec 31, 2024 [id number] Feb 27, 2024 CARISA BOLANOS [facility] ORAL ACTIVE 12/31/2024 [id number] 4 RUTHY BOLANOS 2023 90 [facility] DILTIAZEM (EQV-TIAZAC AB4) 360MG 24HR CAP DILTIAZE M (EQV-TIA JOYCE AB4) 360MG 24HR CAP Disconti nued TAKE ONE CAPSULE BY MOUTH EVERY DAY FOR HEART RATE/BLO OD PRESSURE May 02, 2023 90 May 02, 2024 [id number] Dec 09, 2023 RANCHO NIEVES JR [facility] ORAL DISCONT INUED 05/02/2024 [id number] RANCHO NIEVES JR 2022 90 [facility] DILTIAZEM (EQV-TIAZAC AB4) 360MG 24HR CAP DILTIAZE M (EQV-TIA JOYCE AB4) 360MG 24HR CAP Disconti nued TAKE ONE CAPSULE BY MOUTH EVERY DAY FOR HEART RATE/BLO OD PRESSURE Jun 06, 2022 90 Jun 07, 2023 [id number] Mar 11, 2023 MARY BETH SORTO [facility] ORAL DISCONT INUED 06/07/2023 [id number] MARY BETH SORTO 2021 90 [facility] famotidine (U/D) 20 MG ORAL TAB TAKE ONE TABLET BY MOUTH TWICE A DAY FOR STOMACH ACID Active 12/31/2024 [id number] 4 NATE BOLANOS [address] [facility] famotidine (U/D) 20 MG ORAL TAB TAKE ONE TABLET BY MOUTH TWICE A DAY FOR STOMACH ACID Discont inued 05/02/2024 [id number] RANCHO NIEVES 2023 180 [facility] famotidine (U/D) 20 MG ORAL TAB TAKE ONE TABLET BY MOUTH TWICE A DAY FOR STOMACH ACID Active 05/02/2024 [id number] 3 RANCHO NIEVES 2022 180 [facility] famotidine (U/D) 20 MG ORAL TAB TAKE ONE TABLET BY MOUTH TWICE A DAY FOR STOMACH ACID Discont inued 08/23/2023 [id number] VELMA PERSAUD 2022 180 [facility] FAMOTIDINE 20MG TAB FAMOTIDI NE 20MG TAB Active TAKE ONE TABLET BY MOUTH TWICE A DAY FOR STOMACH ACID Dec 31, 2023 180 Dec 31, 2024 [id number] February 06, 2024 CARISA BOLANOS [facility] ORAL ACTIVE 12/31/2024 [id number] RUTHY BOLANOS 2023 180 [facility] FAMOTIDINE 20MG TAB FAMOTIDI NE 20MG TAB Disconti nued TAKE ONE TABLET BY MOUTH TWICE A DAY FOR STOMACH ACID May 02, 2023 180 May 02, 2024 [id number] Nov 18, 2023 RANCHO NIEVES JR [facility] ORAL DISCONT INUED 05/02/2024 [id number] RANCHO NIEVES JR 2022 180 [facility] FAMOTIDINE 20MG TAB FAMOTIDI NE 20MG TAB Disconti nued TAKE ONE TABLET BY MOUTH TWICE A DAY FOR STOMACH ACID Aug 22, 2022 180 Aug 23, 2023 [id number] Feb 28, 2023 VELMA PERSAUD [facility] ORAL DISCONT INUED 08/23/2023 [id number] Maribel PERSAUD 2021 180 [facility] Hydrochloro thiazide (Oretic) Tablet 12.5 mg (1/2 of 25 mg) Oral TAKE ONE TABLET BY MOUTH EVERY MORNING TO REMOVE FLUID/CO NTROL BLOOD PRESSURE Active 12/31/2024 [id number] 4 [facility]ANOS 20[facility] Hydrochloro thiazide (Oretic) Tablet 12.5 mg (1/2 of 25 mg) Oral TAKE ONE TABLET BY MOUTH EVERY MORNING TO REMOVE FLUID/CO NTROL BLOOD PRESSURE Discont inued 05/02/2024 [id number] RANCHO NIEVES 2023 90 [facility] Hydrochloro thiazide (Oretic) Tablet 12.5 mg (1/2 of 25 mg) Oral TAKE ONE TABLET BY MOUTH EVERY MORNING TO REMOVE FLUID/CO NTROL BLOOD PRESSURE Active 05/02/2024 [id number] 3 RANCHO NIEVES 2022 90 [facility] Hydrochloro thiazide (Oretic) Tablet 12.5 mg (1/2 of 25 mg) Oral TAKE ONE TABLET BY MOUTH EVERY MORNING TO REMOVE FLUID/CO NTROL BLOOD PRESSURE Discont inued 06/16/2023 [id number] 3 M[facility] 2022 [facility] HYDROCHLORO THIAZIDE 12.5MG TAB HYDROCHL OROTHIAZ LYNDSEY 12.5MG TAB Active TAKE ONE TABLET BY MOUTH EVERY MORNING TO REMOVE FLUID/CO NTROL BLOOD PRESSURE Dec 31, 2023 90 Dec 31, 2024 [id number] Feb 27, 2024 CARISA BOLANOS [facility] ORAL ACTIVE 12/31/2024 [id number] 4 RUTHY BOLANOS 2023 90 [facility] HYDROCHLORO THIAZIDE 12.5MG TAB HYDROCHL OROTHIAZ LYNDSEY 12.5MG TAB Disconti nued TAKE ONE TABLET BY MOUTH EVERY MORNING TO REMOVE FLUID/CO NTROL BLOOD PRESSURE May 02, 2023 90 May 02, 2024 [id number] Dec 09, 2023 LIZBETHRANCHO Ferrell JR [facility] ORAL DISCONT INUED 05/02/2024 [id number] 4 LIZBETH RANCHO Ferrell JR 2022 90 [facility] HYDROCHLORO THIAZIDE 12.5MG TAB HYDROCHL OROTHIAZ LYNDSEY 12.5MG TAB Disconti nued TAKE ONE TABLET BY MOUTH EVERY MORNING TO REMOVE FLUID/CO NTROL BLOOD PRESSURE Jun 15, 2022 90 Jun 16, 2023 [id number] Mar 11, 2023 MARY BETH SORTO [facility] ORAL DISCONT INUED 06/16/2023 [id number] MARY BETH SORTO 2021 90 [facility] IBUPROFEN (U/D) 600 MG ORAL TAB TAKE ONE TABLET BY MOUTH THREE TIMES DAILY NEEDED FOR PAIN 04/04/2024 [id number] SNOOK, BRENDA P 2023 15 [facility] IBUPROFEN 600MG TAB IBUPROFE N 600MG TAB TAKE ONE TABLET BY MOUTH THREE TIMES DAILY NEEDED FOR PAIN FOR PAIN Mar 05, 2024 15 Apr 04, 2024 [id number] Mar 05, 2024 SNOOK,CU RTIS P [facility] ORAL 04/04/2024 [id number] SNOOK,CUR TIS P 2023 15 [facility] IRX: Sildenafil 100 mg/Placebo Tablet Oral TAKE ONE TABLET BY MOUTH NEEDED MAX USE ONCE IN 24 HOUR PERIOD Active 05/02/2024 [id number] 3 RANCHO NIEVES 2022 18 [facility] IRX: Sildenafil 100 mg/Placebo Tablet Oral TAKE ONE TABLET BY MOUTH NEEDED MAX USE ONCE IN 24 HOUR PERIOD Discont inued 08/23/2023 [id number] VELMA PERSAUD 2022 18 [facility] lamoTRIgine 100 MG ORAL TAB TAKE THREE TABLETS BY MOUTH EVERY MORNING AND TAKE FOUR TABLETS EVERY EVENING ### Active 12/31/2024 [id number] 4 NATE BOLANOS 2023 630 [facility] lamoTRIgine 100 MG ORAL TAB TAKE THREE TABLETS BY MOUTH EVERY MORNING AND TAKE FOUR TABLETS EVERY EVENING ### Discont inued 05/02/2024 [id number] 4 RANCHO NIEVES 2023 630 [facility] lamoTRIgine 100 MG ORAL TAB TAKE THREE TABLETS BY MOUTH EVERY MORNING AND TAKE FOUR TABLETS EVERY EVENING ### Active 05/02/2024 [id number] RANCHO NIEVES 2022 630 [facility] lamoTRIgine 100 MG ORAL TAB TAKE THREE TABLETS BY MOUTH EVERY MORNING AND TAKE FOUR TABLETS EVERY EVENING ### Discont inued 06/07/2023 [id number] MARY BETH SORTO [address] [facility] LAMOTRIGINE 100MG TAB LAMOTRIG INE 100MG TAB Active TAKE THREE TABLETS BY MOUTH EVERY MORNING AND TAKE FOUR TABLETS EVERY EVENING ### Dec 31, 2023 630 Dec 31, 2024 [id number] February 21, 2024 CARISA BOLANOS [facility] ORAL ACTIVE 12/31/2024 [id number] 4 RUTHY BOLANOS 2023 630 [facility] LAMOTRIGINE 100MG TAB LAMOTRIG INE 100MG TAB Disconti nued TAKE THREE TABLETS BY MOUTH EVERY MORNING AND TAKE FOUR TABLETS EVERY EVENING ### May 02, 2023 630 May 02, 2024 [id number] Dec 03, 2023 TOSINSMA RANCHO Ferrell JR [facility] ORAL DISCONT INUED 05/02/2024 [id number] 4 LIZBETHRANCHO JR 2022 630 [facility] LAMOTRIGINE 100MG TAB LAMOTRIG INE 100MG TAB Disconti nued TAKE THREE TABLETS BY MOUTH EVERY MORNING AND TAKE FOUR TABLETS EVERY EVENING ### Jun 06, 2022 630 Jun 07, 2023 [id number] Mar 11, 2023 MARY BETH SORTO [facility] ORAL DISCONT INUED 06/07/2023 [id number] 3 MARY BETH SORTO 2021 630 [facility] LEVOTHYROXI NE NA 112MCG TAB (SYNTHROID) LEVOTHYR OXINE NA 112MCG TAB (SYNTHRO ID) Disconti nued TAKE TWO TABLETS BY MOUTH EVERY MORNING FOR THYROID HALF-BEATA R BEFORE FOOD INCREASE IN DOSE FOR HYPOTHYR OIDISM Jun 04, 2023 180 Jun 04, 2024 [id number] Oct 06, 2023 TOSINRANCHO VARGAS JR [facility] ORAL DISCONT INUED (EDIT) 06/04/2024 [id number] BROTHRANCHO VARGAS JR 2022 180 [facility] LEVOTHYROXI NE NA 125MCG TAB (SYNTHROID) LEVOTHYR OXINE NA 125MCG TAB (SYNTHRO ID) Active TAKE TWO TABLETS BY MOUTH ONCE EVERY MORNING FOR HYPOTHYR OIDISM HALF-BEATA R BEFORE FOOD INCREASE IN DOSE FOR HYPOTHYR OIDISM Oct 26, 2023 180 Oct 26, 2024 [id number] February 04, 2024 CARISA BOLANOS [facility] ORAL ACTIVE 10/26/2024 [id number] RUTHY BOLANOS 2023 180 [facility] LEVOTHYROXI NE NA 200MCG TAB (SYNTHROID) LEVOTHYR OXINE NA 200MCG TAB (SYNTHRO ID) Disconti nued TAKE ONE TABLET BY MOUTH EVERY MORNING FOR THYROID HALF-BEATA R BEFORE FOOD INCREASE IN DOSE FOR HYPOTHYR OIDISM Oct 19, 2022 90 Oct 20, 2023 [id number] Apr 26, 2023 VELMA PERSAUD [facility] ORAL DISCONT INUED (EDIT) 10/20/2023 [id number] 3 Maribel PERSAUD 2022 90 [facility] Lisinopril (Brand Name) Tablet 5 mg Oral TAKE ONE TABLET BY MOUTH EVERY DAY TO CONTROL BLOOD PRESSURE Discont inued 05/02/2024 [id number] RANCHO NIEVES 2023 90 [facility] Lisinopril (Brand Name) Tablet 5 mg Oral TAKE ONE TABLET BY MOUTH EVERY DAY TO CONTROL BLOOD PRESSURE Active 05/02/2024 [id number] RANCHO NIEVES 2022 90 [facility] Lisinopril (Brand Name) Tablet 5 mg Oral TAKE ONE TABLET BY MOUTH EVERY DAY TO CONTROL BLOOD PRESSURE Discont inued 06/07/2023 [id number] 3 M[facility] 2022 90 [facility] L[facility]IN[facility]IL (U/D) 10 MG ORAL TAB TAKE ONE TABLET BY MOUTH ONCE EVERY EVENING FOR HIGH BLOOD PRESSURE Active 12/24/2024 [id number] 4 MARIANA GUNDERSON 2023 90 [facility] LISINOPRIL 10MG TAB LISINOPR [place] 10MG TAB Active TAKE ONE TABLET BY MOUTH ONCE EVERY EVENING FOR HIGH BLOOD PRESSURE FOR HIGH BLOOD PRESSURE Dec 24, 2023 90 Dec 24, 2024 [id number] Mar 30, 2024 Cruz GUNDERSON R [facility] ORAL ACTIVE 12/24/2024 [id number] MINISTERIO GUNDERSON MA 2023 90 [facility] LISINOPRIL 5MG TAB LISINOPR IL 5MG TAB Disconti nued TAKE ONE TABLET BY MOUTH EVERY DAY TO CONTROL BLOOD PRESSURE May 02, 2023 90 May 02, 2024 [id number] Nov 18, 2023 BROTHSAMRANCHO Ferrell JR [facility] ORAL DISCONT INUED (EDIT) 05/02/2024 [id number] 4 LIZBETHRANCHO JR 2022 90 [facility] LISINOPRIL 5MG TAB LISINOPR [place] 5MG TAB Disconti nued TAKE ONE TABLET BY MOUTH EVERY DAY TO CONTROL BLOOD PRESSURE Jun 06, 2022 90 Jun 07, 2023 [id number] February 21, 2023 MARY BETH SORTO [facility] ORAL DISCONT INUED 06/07/2023 [id number] MARY BETH SORTO 2021 90 [facility] MELATONIN 5MG CAP/TAB MELATONI N 5MG CAP/TAB Active TAKE ONE CAP/TAB BY MOUTH EVERY DAY FOR SLEEP Dec 31, 2023 90 Dec 31, 2024 [id number] Mar 15, 2024 CARISA BOLANOS [facility] ORAL ACTIVE 12/31/2024 [id number] 4 RUTHY BOLANOS 2023 90 [facility] MELATONIN 5MG CAP/TAB MELATONI N 5MG CAP/TAB Disconti nued TAKE ONE CAP/TAB BY MOUTH EVERY DAY FOR SLEEP May 02, 2023 90 May 02, 2024 [id number] Dec 16, 2023 BROTHRANCHO VARGAS JR [facility] ORAL DISCONT INUED 05/02/2024 [id number] 4 BROTHRANCHO VARGAS JR 2022 90 [facility] MELATONIN 5MG CAP/TAB MELATONI N 5MG CAP/TAB Disconti nued TAKE ONE CAP/TAB BY MOUTH EVERY DAY FOR SLEEP Dec 13, 2022 90 Dec 14, 2023 [id number] Mar 31, 2023 [facility] 12/14/2023 [id number] DEMETRIUS TOUSSAINT 2022 90 [facility] METOPROLOL SUCCINATE 25MG TAB,SA METOPROL OL SUCCINAT E 25MG TAB,SA Active TAKE ONE TABLET BY MOUTH TWICE A DAY FOR ATRIAL FIBRILLA TION FOR RATE CONTROL FOR ATRIAL FIBRILLA TION Apr 02, 2024 180 Apr 03, 2025 [id number] Apr 02, 2024 [facility] 04/03/2025 [id number] MICHEAL SINGH 2023 180 [facility] PHENYTOIN NA,EXTENDED 100MG CAP (DILANTIN) PHENYTOI N NA,EXTEN DED 100MG CAP (DILANTI N) Active TAKE ONE CAPSULE BY MOUTH EVERY MORNING AND TAKE TWO CAPSULES EVERY EVENING TO PREVENT SEIZURES NEEDS DILANTIN BRAND Jan 16, 2024 270 Jan 16, 2025 [id number] Jan 16, 2024 [facility] 01/16/2025 [id number] 4 RUTHY BOLANOS 2023 270 [facility] PHENYTOIN NA,EXTENDED 100MG CAP (DILANTIN) PHENYTOI N NA,EXTEN DED 100MG CAP (DILANTI N) Disconti nued TAKE ONE CAPSULE BY MOUTH EVERY MORNING AND TAKE TWO CAPSULES EVERY EVENING TO PREVENT SEIZURES NEEDS DILANTIN BRAND Jan 11, 2023 270 Jan 12, 2024 [id number] Oct 21, 20[facility] 01/12/2024 [id number] 4 Maribel PERSAUD [address] [facility] SILDENAFIL CITRATE 100MG TAB SILDENAF IL CITRATE 100MG TAB Active TAKE ONE TABLET BY MOUTH NEEDED MAX USE ONCE IN 24 HOUR PERIOD May 02, 2023 18 May 02, 2024 [id number] Mar 30, 2024 RANCHO NIEVES JR [facility] ORAL ACTIVE 05/02/2024 [id number] 4 RANCHO NIEVES JR [address] [facility] SILDENAFIL CITRATE 100MG TAB SILDENAF IL CITRATE 100MG TAB Disconti nued TAKE ONE TABLET BY MOUTH NEEDED MAX USE ONCE IN 24 HOUR PERIOD Aug 22, 2022 18 Aug 23, 2023 [id number] February 18, 2023 VELMA PERSAUD [facility] ORAL DISCONT INUED 08/23/2023 [id number] Maribel PERSAUD 2021 [facility] TRAZODONE HCL 50MG TAB TRAZODON E HCL 50MG TAB Active TAKE ONE TABLET BY MOUTH AT BEDTIME FOR INSOMNIA MAY TAKE ONE ADDITION AL TABLET NEEDED FOR INSOMNIA May 02, 2023 90 May 02, 2024 [id number] Dec 04, 2023 RANCHO NIEVES JR [facility] ORAL ACTIVE 05/02/2024 [id number] RANCHO NIEVES JR 2022 90 [facility] TRAZODONE HCL 50MG TAB TRAZODON E HCL 50MG TAB Disconti nued TAKE ONE TABLET BY MOUTH AT BEDTIME FOR INSOMNIA MAY TAKE ONE ADDITION AL TABLET NEEDED FOR INSOMNIA Sep 14, 2022 90 Sep 15, 2023 [id number] Mar 06, 2023 [facility] ORAL DISCONT INUED 09/15/2023 [id number] Maribel PERSAUD 2021 90 [facility] Trazodone Hydrochlori de (Desyrel Eq.) Tablet 50 mg Oral TAKE ONE TABLET BY MOUTH AT BEDTIME FOR INSOMNIA MAY TAKE ONE ADDITION AL TABLET NEEDED Active 05/02/2024 [id number] 4 RAN[facility] NIEVES 2023 90 [facility] Trazodone Hydrochlori de (Desyrel Eq.) Tablet 50 mg Oral TAKE ONE TABLET BY MOUTH AT BEDTIME FOR INSOMNIA MAY TAKE ONE ADDITION AL TABLET NEEDED Active 05/02/2024 [id number] 3 RANCOH NIEVES 2022 90 [facility] Trazodone Hydrochlori de (Desyrel Eq.) Tablet 50 mg Oral TAKE ONE TABLET BY MOUTH AT BEDTIME FOR INSOMNIA MAY TAKE ONE ADDITION AL TABLET NEEDED 09/15/2023 [id number] 3 VELMA PERSAUD 2022 90 [facility] Triamcinolo ne Acetonide 0.001mg/mg, Ointment, Topical APPLY SMALL AMOUNT TOPICALL Y TWICE DAILY NEEDED FOR DERMATIT IS Active 05/02/2024 [id number] 4 RAN[facility] NIEVES 2022 80 [facility] Triamcinolo ne Acetonide 0.001mg/mg, Ointment, Topical APPLY SMALL AMOUNT TOPICALL Y TWICE DAILY NEEDED FOR DERMATIT IS Active 05/02/2024 [id number] 3 RANCHO NIEVES 2022 80 [facility] Triamcinolo ne Acetonide 0.001mg/mg, Ointment, Topical APPLY SMALL AMOUNT TOPICALL Y TWICE DAILY NEEDED FOR DERMATIT IS Discont inued 04/20/2024 [id number] 3 RAN[facility] NIEVES 2022 80 [facility] TRIAMCINOLO NE ACETONIDE 0.1% OINT,TOP TRIAMCIN OLONE ACETONID E 0.1% OINT,TOP Active APPLY SMALL AMOUNT TOPICALL Y TWICE DAILY NEEDED FOR DERMATIT IS FOR DERMATIT IS May 02, 2023 80 May 02, 2024 [id number] Sep 27, 2023 LIZBETHRANCHO PENA Y [facility] TOPICA L ACTIVE 05/02/2024 [id number] LIZBETH RANCHO Ferrell JR 2022 80 [facility] TRIAMCINOLO NE ACETONIDE 0.1% OINT,TOP TRIAMCIN OLONE ACETONID E 0.1% OINT,TOP Disconti nued APPLY SMALL AMOUNT TOPICALL Y TWICE DAILY NEEDED FOR DERMATIT IS FOR DERMATIT IS Apr 20, 2023 80 Apr 20, 2024 [id number] Apr 20, 2023 RANCHO NIEVES JR [facility] TOPICA L DISCONT INUED 04/20/2024 [id number] RANCHO NIEVES JR 2022 80 [facility] WARFARIN NA ([place]) 5MG TAB WARFARIN NA ([place]) 5MG TAB Active TAKE ONE TABLET BY MOUTH ONCE DAILY TO HELP PREVENT BLOOD CLOTS (ANTICOA GULATION ) TO HELP PREVENT BLOOD CLOTS Apr 02, 2024 90 Apr 03, 2025 [id number] Apr 02, 2024 MARY ANN HENDERSON [facility] ORAL ACTIVE 04/03/2025 [id number] MICHEAL SINGH 2023 90 [facility] Immunizations Combined list of available immunizations from the Department of Defense and Veterans Affairs facilities. 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 Status Comments Source COVID-19 (MODERNA), MRNA, LNP-S, PF, 50 MCG/0.5 ML (AGES 12+ YEARS) 2023 RUTHY PICKENS LEFT DELTO ID [id number] complet ed [facility] COVID-19 (MODERNA), MRNA, LNP-S, PF, 100 MCG OR 50 MCG DOSE 3 2021 207 complet ed MOD; [id number]; 2 [facility] PNEUMOCOCCAL POLYSACCHARID E PPV23 2020 33 complet ed [facility] TDAP 2018 115 complet ed Site: Left Deltoid [facility] TD(ADULT) UNSPECIFIED FORMULATION 1996 139 complet ed [facility] Results Combined list of recent chemistry, hematology and other laboratory results from Department of Defense and Veterans Affairs, ranging from 15 months to all on record, depending upon the facility. Order Name Results Value Reference Range Date Interpretation Specimen Comments Source PT&INR INR IN PLATELET POOR PLASMA BY COAGULATION ASSAY 7.3 {ratio } 0.9 - 1.1 04/10 HH Specimen Type: PLASMA Comment: Tests performed on [place] ACL TOP 350 SN (405) Criticals repeated,ca lled to,read back by: ARUN SILVERIO 04/10/24 AT 12:44 PM Ordering Provider: ROSALINA PATEL Report Released Date/Time: Apr 08, 2024 12:40 PM Reporting Lab: [facility] [address] [facility] [address] Performing Lab: [facility] [address] [facility] [address] [facility] PT&INR PROTHROMBIN TIME (PT) 75.7 s 9.4 - 12.5 04/10 H Specimen Type: PLASMA Comment: Tests performed on [place] ACL TOP 350 SN (405) Criticals repeated,ca lled to,read back by: ARUN SILVERIO 04/10/24 AT 12:44 PM Ordering Provider: ROSALINA PATEL Report Released Date/Time: Apr 08, 2024 12:40 PM Reporting Lab: [facility] [address] [facility] [address] Performing Lab: [facility] [address] [facility] [address] [facility] P4 GLU,BUN,C REAT,LYTE S,CA UREA NITROGEN [MASS/VOLUM E] IN SERUM OR PLASMA 21 mg/dL 7 - 25 04/10 Specimen Type: PLASMA Comment: , Tests performed on [employer] SN:[id number] (405) Ordering Provider: MICHEAL MENDEZ Report Released Date/Time: Apr 07, 2024 03:31 PM Reporting Lab: [facility] [address] [facility] [address] Performing Lab: [facility] [address] [facility] [address] [facility] P4 GLU,BUN,C REAT,LYTE S,CA SODIUM [MOLES/VOLU ME] IN SERUM OR PLASMA 135 mmol/L 135 - 145 04/10 Specimen Type: PLASMA Comment: , Tests performed on [employer] SN:[id number] (405) Ordering Provider: MICHEAL MENDEZ Report Released Date/Time: Apr 07, 2024 03:31 PM Reporting Lab: [facility] [address] [facility] [address] Performing Lab: [facility] [address] [facility] [address] [facility] P4 GLU,BUN,C REAT,LYTE S,CA POTASSIUM [MOLES/VOLU ME] IN SERUM OR PLASMA 4.1 mmol/L 3.5 - 5.0 04/10 Specimen Type: PLASMA Comment: , Tests performed on [employer] SN:[id number] (405) Ordering Provider: MICHEAL MENDEZ Report Released Date/Time: Apr 07, 2024 03:31 PM Reporting Lab: [facility] [address] [facility] [address] Performing Lab: [facility] [address] [facility] [address] [facility] P4 GLU,BUN,C REAT,LYTE S,CA CHLORIDE [MOLES/VOLU ME] IN SERUM OR PLASMA 102 mmol/L 100 - 110 04/10 Specimen Type: PLASMA Comment: , Tests performed on [employer] SN:[id number] (405) Ordering Provider: MICHEAL MENDEZ Report Released Date/Time: Apr 07, 2024 03:31 PM Reporting Lab: [facility] [address] [facility] [address] Performing Lab: [facility] [address] [facility] [address] [facility] [place] [facility] P4 GLU,BUN,C REAT,LYTE S,CA CARBON DIOXIDE, TOTAL [MOLES/VOLU ME] IN SERUM OR PLASMA 27 mmol/L 20 - 30 04/10 Specimen Type: PLASMA Comment: , Tests performed on [employer] SN:[id number] (405) Ordering Provider: MICHEAL MENDEZ Report Released Date/Time: Apr 07, 2024 03:31 PM Reporting Lab: [facility] [address] [facility] [address] Performing Lab: [facility] [address] [facility] [address] [facility] GLU,BUN,C REAT,LYTE S,CA ANION GAP IN SERUM OR PLASMA 6 4 - 16 04/10 Specimen Type: PLASMA Comment: , Tests performed on [employer] SN:[id number] (405) Ordering Provider: MICHEAL MENDEZ Report Released Date/Time: Apr 07, 2024 03:31 PM Reporting [facility]: [facility] [address] [facility] [address] Performing Lab: [facility] [address] [facility] [address] [facility] P4 GLU,BUN,C REAT,LYTE S,CA GLUCOSE [MASS/VOLUM E] IN SERUM OR PLASMA 92 mg/dL 65 - 100 04/10 Specimen Type: PLASMA Comment: , Tests performed on [employer] SN:[id number] (405) Ordering Provider: MICHEAL MENDEZ Report Released Date/Time: Apr 07, 2024 03:31 PM Reporting [facility]: [facility] [address] [facility] [address] Performing Lab: [facility] [address] [facility] [address] [facility] P4 GLU,BUN,C REAT,LYTE S,CA CREATININE [MASS/VOLUM E] IN SERUM OR PLASMA 0.93 mg/dL 0.50 - 1.50 04/10 Specimen Type: PLASMA Comment: , Tests performed on [employer] SN:[id number] (405) Ordering Provider: MICHEAL MENDEZ Report Released Date/Time: Apr 07, 2024 03:31 PM Reporting [facility]: [facility] [address] [facility] [address] Performing Lab: [facility] [address] [facility] [address] [facility] P4 GLU,BUN,C REAT,LYTE S,CA CALCIUM [MASS/VOLUM E] IN SERUM OR PLASMA 9.5 mg/dL 8.5 - 10.5 04/10 Specimen Type: PLASMA Comment: , Tests performed on [employer] SN:[id number] (405) Ordering Provider: MICHEAL MENDEZ Report Released Date/Time: Apr 07, 2024 03:31 PM Reporting Lab: [facility] [address] [facility] [address] Performing Lab: [facility] [address] [facility] [address] [facility] P4 GLU,BUN,C REAT,LYTE S,CA GLOMERULAR FILTRATION RATE/1.73 SQ M.PREDICTED [VOLUME RATE/AREA] IN SERUM, PLASMA OR BLOOD BY CREATININE- BASED FORMULA (CKD-EPI 2020) >90 04/10 Specimen Type: PLASMA Comment: , Tests performed on [employer] SN:[id number] (405) Ordering Provider: MICHEAL MENDEZ Report Released Date/Time: Apr 07, 2024 03:31 PM Reporting Lab: [facility] [address] [facility] [address] Performing Lab: [facility] [address] [facility] [address] [facility] PT&INR INR IN PLATELET POOR PLASMA BY COAGULATION ASSAY 3.5 {ratio } 0.9 - 1.1 04/07 H Specimen Type: PLASMA Comment: Tests performed on IL ACL TOP 350 SN [id number] (405) Ordering Provider: CLAUS GOMEZ Report Released Date/Time: Apr 02, 2024 03:19 PM Reporting Lab: [facility] [address] [facility] [place] [address] Performing Lab: [facility] [address] [facility] [address] [facility] PT&INR PROTHROMBIN TIME (PT) 37.5 s 9.4 - 12.5 04/07 H Specimen Type: PLASMA Comment: Tests performed on IL ACL TOP 350 SN [id number] (405) Ordering Provider: CLAUS GOMEZ Report Released Date/Time: Apr 02, 2024 03:19 PM Reporting Lab: [facility] [address] [facility] [place] [address] Performing Lab: [facility] [address] [facility] [place] [address] [facility] CBC NO DIFF LEUKOCYTES [#/VOLUME] IN BLOOD BY AUTOMATED COUNT 6.1 10*3/u L 4.5 - 11.0 04/02 Specimen Type: BLOOD No comment entered. Ordering Provider: CLAUS GOMEZ Report Released Date/Time: Apr 02, 2024 03:17 PM Reporting Lab: [facility] [address] [facility] [address] Performing Lab: [facility] [address] [facility] [address] [facility] [place] [facility] CBC NO DIFF ERYTHROCYTE S [#/VOLUME] IN BLOOD BY AUTOMATED COUNT 4.77 10*6/u L 4.23 - 5.66 04/02 Specimen Type: BLOOD No comment entered. Ordering Provider: CLAUS GOMEZ Report Released Date/Time: Apr 02, 2024 03:17 PM Reporting Lab: [facility] [address] [facility] [address] Performing Lab: [facility] [address] [facility] [address] [facility] CBC NO DIFF HEMOGLOBIN [MASS/VOLUM E] IN BLOOD 15.6 g/dL 12.8 - 17 04/02 Specimen Type: BLOOD No comment entered. Ordering Provider: CLAUS GOMEZ Report Released Date/Time: Apr 02, 2024 03:17 PM Reporting Lab: [facility] [address] [facility] [address] Performing Lab: [facility] [address] [facility] [address] [facility] CBC NO DIFF HEMATOCRIT [VOLUME FRACTION] OF BLOOD BY AUTOMATED COUNT 44.9 39.2 - 50.4 04/02 Specimen Type: BLOOD No comment entered. Ordering Provider: CLAUS GOMEZ Report Released Date/Time: Apr 02, 2024 03:17 PM Reporting Lab: [facility] [address] [facility] [address] Performing Lab: [facility] [address] [facility] [address] [facility] CBC NO DIFF MCV [ENTITIC VOLUME] BY AUTOMATED COUNT 94.1 fL 82 - 99 04/02 Specimen Type: BLOOD No comment entered. Ordering Provider: CLAUS GOMEZ Report Released Date/Time: Apr 02, 2024 03:17 PM Reporting Lab: [facility] [address] [facility] [address] Performing Lab: [facility] [address] [facility] [address] [facility] CBC NO DIFF MCH [ENTITIC MASS] BY AUTOMATED COUNT 32.7 pg 26.2 - 32.6 04/02 H Specimen Type: BLOOD No comment entered. Ordering Provider: CLAUS GOMEZ Report Released Date/Time: Apr 02, 2024 03:17 PM Reporting Lab: [facility] [address] [facility] [address] Performing Lab: [facility] [address] [facility] [address] [facility] CBC NO DIFF MCHC [MASS/VOLUM E] BY AUTOMATED COUNT 34.7 g/dL 30.8 - 35.1 04/02 Specimen Type: BLOOD No comment entered. Ordering Provider: CLAUS GOMEZ Report Released Date/Time: Apr 02, 2024 03:17 PM Reporting Lab: [facility] [address] [facility] [address] Performing Lab: [facility] [address] [facility] [address] [facility] CBC NO DIFF PLATELETS [#/VOLUME] IN BLOOD BY AUTOMATED COUNT 257 10*3/u L 140 - 360 04/02 Specimen Type: BLOOD No comment entered. Ordering Provider: CLAUS GOMEZ Report Released Date/Time: Apr 02, 2024 03:17 PM Reporting Lab: [facility] [address] [facility] [address] Performing Lab: [facility] [address] [facility] [address] [facility] CBC NO DIFF PLATELET MEAN VOLUME [ENTITIC VOLUME] IN BLOOD BY AUTOMATED COUNT 8.9 fL 9.2 - 12.4 04/02 L Specimen Type: BLOOD No comment entered. Ordering Provider: CLAUS GOMEZ Report Released Date/Time: Apr 02, 2024 03:17 PM Reporting Lab: [facility] [address] [facility] [address] Performing Lab: [facility] [address] [facility] [address] [facility] CBC NO DIFF ERYTHROCYTE DISTRIBUTIO N WIDTH [RATIO] BY AUTOMATED COUNT 14.1 12.0 - 16.0 04/02 Specimen Type: BLOOD No comment entered. Ordering Provider: CLAUS GOMEZ Report Released Date/Time: Apr 02, 2024 03:17 PM Reporting Lab: [facility] [address] [facility] [address] Performing Lab: [facility] [address] [facility] [address] [facility] PT&INR INR IN PLATELET POOR PLASMA BY COAGULATION ASSAY 1.2 {ratio } 0.9 - 1.1 04/02 H Specimen Type: PLASMA Comment: Tests performed on IL ACL TOP 350 SN [id number] (405) Ordering Provider: CLAUS GOMEZ Report Released Date/Time: Apr 02, 2024 03:17 PM Reporting Lab: [facility] [address] [facility] [address] Performing Lab: [facility] [address] [facility] [address] [facility] PT&INR PROTHROMBIN TIME (PT) 12.9 s 9.4 - 12.5 04/02 H Specimen Type: PLASMA Comment: Tests performed on IL ACL TOP 350 SN [id number] (405) Ordering Provider: CLAUS GOMEZ Report Released Date/Time: Apr 02, 2024 03:17 PM Reporting Lab: [facility] [address] [facility] [address] Performing Lab: [facility] [address] [facility] [address] [facility] LAMOTRIGI NE(Q) LAMOTRIGINE [MASS/VOLUM E] IN SERUM OR PLASMA 4.8 ug/mL 2.5 - 15.0 12/30 Specimen Type: SERUM Comment: This test was developed and its analytical performance characteris tics have been determined by [employer] [place], [place]. It has not been cleared or approved by the U.S. Food and Drug Administrat ion. This assay has been validated pursuant to the CLIA regulations and is used for clinical purposes. Test Performed by Jessica Castillo, [facility], [address] [place] [address] Leland Gamble M.D., Ph.D., Director of Laboratorie s , CLIA [id number] Ordering Provider: ROLAN BOLANOS Report Released Date/Time: Dec 31, 2023 09:36 AM Reporting Lab: [facility] [address] [facility] [address] Performing Lab: [facility] [place] [facility] [address] [facility] [place] [facility] LIPOPROTE IN CHOLESTER OL FRACT. PANEL CHOLESTEROL [MASS/VOLUM E] IN SERUM OR PLASMA 171 mg/dL 0 - 200 12/30 Specimen Type: PLASMA Comment: , Tests performed on [employer] SN:[id number] (405). Ordering Provider: ROLAN BOLANOS Report Released Date/Time: Dec 20, 2023 11:26 AM Reporting Lab: [facility] [address] [facility] [place] [address] Performing Lab: [facility] [address] [facility] [place] [place] [address] [facility] LIPOPROTE IN CHOLESTER OL FRACT. PANEL TRIGLYCERID E [MASS/VOLUM E] IN SERUM OR PLASMA 55 mg/dL 0 - 150 12/30 Specimen Type: PLASMA Comment: , Tests performed on [employer] SN:[id number] (405). Ordering Provider: ROLAN BOLANOS Report Released Date/Time: Dec 20, 2023 11:26 AM Reporting Lab: [facility] [address] [facility] [place] [place] [address] Performing Lab: [facility] [address] [facility] [place] [place] [address] [facility] LIPOPROTE IN CHOLESTER OL FRACT. PANEL CHOLESTEROL IN HDL [MASS/VOLUM E] IN SERUM OR PLASMA 60 mg/dL 40 12/30 Specimen Type: PLASMA Comment: , Tests performed on [employer] SN:[id number] (405). Ordering Provider: ROLAN BOLANOS Report Released Date/Time: Dec 20, 2023 11:26 AM Reporting Lab: [facility] [address] [facility] [address] Performing Lab: [facility] [address] [facility] [address] [facility] LIPOPROTE IN CHOLESTER OL FRACT. PANEL CHOLESTEROL IN LDL [MASS/VOLUM E] IN SERUM OR PLASMA BY CALCULATION 100 mg/dL 0 - 129 12/30 Specimen Type: PLASMA Comment: , Tests performed on [employer] SN:[id number] (405). Ordering Provider: ROLAN BOLANOS Report Released Date/Time: Dec 20, 2023 11:26 AM Reporting Lab: [facility] [address] [facility] [address] Performing Lab: [facility] [place] [facility] [address] [facility] [address] [facility] LIVER PROFILE PROTEIN [MASS/VOLUM E] IN SERUM OR PLASMA 7.8 g/dL 6.0 - 8.5 12/30 Specimen Type: PLASMA Comment: , Tests performed on [employer] SN:[id number] (405). Ordering Provider: ROLAN BOLANOS Report Released Date/Time: Dec 20, 2023 11:26 AM Reporting Lab: [facility] [address] [facility] [address] Performing Lab: [facility] [address] [facility] [address] [facility] LIVER PROFILE ALBUMIN [MASS/VOLUM E] IN SERUM OR PLASMA 4.3 g/dL 3.2 - 5.0 12/30 Specimen Type: PLASMA Comment: , Tests performed on [employer] SN:[id number] (405). Ordering Provider: ROLAN BOLANOS Report Released Date/Time: Dec 20, 2023 11:26 AM Reporting Lab: [facility] [address] [facility] [address] Performing Lab: [facility] [address] [facility] [address] [facility] LIVER PROFILE BILIRUBIN.T OTAL [MASS/VOLUM E] IN SERUM OR PLASMA 0.4 mg/dL 0.2 - 1.2 12/30 Specimen Type: PLASMA Comment: , Tests performed on [employer] SN:[id number] (405). Ordering Provider: ROLAN BOLANOS Report Released Date/Time: Dec 20, 2023 11:26 AM Reporting Lab: [facility] [address] [facility] [place] [place] [address] Performing Lab: [facility] [address] [facility] [place] [address] [facility] LIVER PROFILE ALKALINE PHOSPHATASE [ENZYMATIC ACTIVITY/VO LUME] IN SERUM OR PLASMA 144 U/L 40 - 150 12/30 Specimen Type: PLASMA Comment: , Tests performed on [employer] SN:[id number] (405). Ordering Provider: ROLAN BOLNAOS Report Released Date/Time: Dec 20, 2023 11:26 AM Reporting Lab: [facility] [address] [facility] [place] [place] [address] Performing Lab: [facility] [address] [facility] [place] [address] [facility] LIVER PROFILE ALANINE AMINOTRANSF ERASE [ENZYMATIC ACTIVITY/VO LUME] IN SERUM OR PLASMA 37 U/L 7 - 52 12/30 Specimen Type: PLASMA Comment: , Tests performed on [employer] SN:[id number] (405). Ordering Provider: ROLAN BOLANOS Report Released Date/Time: Dec 20, 2023 11:26 AM Reporting Lab: [facility] [address] [facility] [place] [address] Performing Lab: [facility] [address] [facility] [place] [address] [facility] LIVER PROFILE ASPARTATE AMINOTRANSF ERASE [ENZYMATIC ACTIVITY/VO LUME] IN SERUM OR PLASMA 30 U/L 5 - 34 12/30 Specimen Type: PLASMA Comment: , Tests performed on [employer] SN:[id number] (405). Ordering Provider: ROLAN BOLANOS Report Released Date/Time: Dec 20, 2023 11:26 AM Reporting Lab: [facility] [address] [facility] [place] [address] Performing Lab: [facility] [address] [facility] [place] [address] [facility] LIVER PROFILE FIB-4 SCORE 0.92 <2.67 - 2.67 12/30 Specimen Type: PLASMA Comment: , Tests performed on [employer] SN:[id number] (061). Ordering Provider: ROLAN BOLANOS Report Released Date/Time: Dec 20, 2023 11:26 AM Reporting Lab: [facility] [address] [facility] [address] Performing Lab: [facility] [address] [place] [address] [facility] CBC NO DIFF LEUKOCYTES [#/VOLUME] IN BLOOD BY AUTOMATED COUNT 6.2 10*3/u L 4.5 - 11.0 12/30 Specimen Type: BLOOD No comment entered. Ordering Provider: ROLAN BOLANOS Report Released Date/Time: Dec 20, 2023 11:26 AM Reporting Lab: [facility] [address] [facility] [address] Performing Lab: [facility] [address] [facility] CBC NO DIFF ERYTHROCYTE S [#/VOLUME] IN BLOOD BY AUTOMATED COUNT 5.13 10*6/u L 4.23 - 5.66 12/30 Specimen Type: BLOOD No comment entered. Ordering Provider: ROLAN BOLANOS Report Released Date/Time: Dec 20, 2023 11:26 AM Reporting Lab: [facility] [address] [facility] [address] Performing Lab: [facility] [address] [place] [address] [facility] CBC NO DIFF HEMOGLOBIN [MASS/VOLUM E] IN BLOOD 16.3 g/dL 12.8 - 17 12/30 Specimen Type: BLOOD No comment entered. Ordering Provider: ROLAN BOLANOS Report Released Date/Time: Dec 20, 2023 11:26 AM Reporting Lab: [facility] [address] [facility] [address] Performing Lab: [facility] [address] [facility] [address] [facility] CBC NO DIFF HEMATOCRIT [VOLUME FRACTION] OF BLOOD BY AUTOMATED COUNT 47.6 39.2 - 50.4 12/30 Specimen Type: BLOOD No comment entered. Ordering Provider: ROLAN BOLANOS Report Released Date/Time: Dec 20, 2023 11:26 AM Reporting Lab: [facility] [address] [facility] [address] Performing Lab: [facility] [address] [facility] [address] [facility] CBC NO DIFF MCV [ENTITIC VOLUME] BY AUTOMATED COUNT 92.8 fL 82 - 99 12/30 Specimen Type: BLOOD No comment entered. Ordering Provider: ROLAN BOLANOS Report Released Date/Time: Dec 20, 2023 11:26 AM Reporting Lab: [facility] [address] [facility] [address] Performing Lab: [facility] [address] [facility] [address] [facility] CBC NO DIFF MCH [ENTITIC MASS] BY AUTOMATED COUNT 31.8 pg 26.2 - 32.6 12/30 Specimen Type: BLOOD No comment entered. Ordering Provider: ROLAN BOLANOS Report Released Date/Time: Dec 20, 2023 11:26 AM Reporting Lab: [facility] [address] [facility] [address] Performing Lab: [facility] [address] [facility] [address] [facility] [facility] CB CBC NO DIFF MCHC [MASS/VOLUM E] BY AUTOMATED COUNT 34.2 g/dL 30.8 - 35.1 12/30 Specimen Type: BLOOD No comment entered. Ordering Provider: ROLAN BOLANOS Report Released Date/Time: Dec 20, 2023 11:26 AM Reporting Lab: [facility] [address] [facility] [address] Performing Lab: [facility] [address] [facility] [address] [facility] CB CBC NO DIFF PLATELETS [#/VOLUME] IN BLOOD BY AUTOMATED COUNT 263 10*3/u L 140 - 360 12/30 Specimen Type: BLOOD No comment entered. Ordering Provider: ROLAN BOLANOS Report Released Date/Time: Dec 20, 2023 11:26 AM Reporting Lab: [facility] [address] [facility] [address] [facility] [address] [facility] [address] [facility] CBC NO DIFF PLATELET MEAN VOLUME [ENTITIC VOLUME] IN BLOOD BY AUTOMATED COUNT 9.9 fL 9.2 - 12.4 12/30 Specimen Type: BLOOD No comment entered. Ordering Provider: ROLAN BOLANOS Report Released Date/Time: Dec 20, 2023 11:26 AM Reporting [facility] [address] [facility] [address] Performing [facility]: [facility] [address] [facility] [address] [facility] CBC NO DIFF ERYTHROCYTE DISTRIBUTIO N WIDTH [RATIO] BY AUTOMATED COUNT 11.8 12.0 - 16.0 12/30 L Specimen Type: BLOOD No comment entered. Ordering Provider: ROLAN BOLANOS Report Released Date/Time: Dec 20, 2023 11:26 AM Reporting [facility] [address] [facility] [address] Performing Lab: [facility] [address] [address] [facility] P4 GLU,BUN,C REAT,LYTE S,CA UREA NITROGEN [MASS/VOLUM E] IN SERUM OR PLASMA 20 mg/dL 7 - 25 12/30 Specimen Type: PLASMA Comment: , Tests performed on [employer] SN:[id number] (405). Ordering Provider: ROLAN BOLANOS Report Released Date/Time: Dec 20, 2023 11:26 AM Reporting Lab: [facility] [address] [facility] [facility] [address] Performing Lab: [facility] [address] [address] [facility] P4 GLU,BUN,C REAT,LYTE S,CA SODIUM [MOLES/VOLU ME] IN SERUM OR PLASMA 137 mmol/L 135 - 145 12/30 Specimen Type: PLASMA Comment: , Tests performed on [employer] SN:[id number] (405). Ordering Provider: ROLAN BOLANOS Report Released Date/Time: Dec 20, 2023 11:26 AM Reporting Lab: [facility] [address] [address] Performing Lab: [facility] [address] [address] [facility] P4 GLU,BUN,C REAT,LYTE S,CA POTASSIUM [MOLES/VOLU ME] IN SERUM OR PLASMA 4.6 mmol/L 3.5 - 5.0 12/30 Specimen Type: PLASMA Comment: , Tests performed on [employer] SN:[id number] (405). Ordering Provider: ROLAN BOLANOS Report Released Date/Time: Dec 20, 2023 11:26 AM Reporting Lab[facility] [address] [address] Performing Lab: [facility] [address] [address] [facility] P4 GLU,BUN,C REAT,LYTE S,CA CHLORIDE [MOLES/VOLU ME] IN SERUM OR PLASMA 105 mmol/L 100 - 110 12/30 Specimen Type: PLASMA Comment: , Tests performed on [employer] SN:[id number] (405). Ordering Provider: ROLAN BOLANOS Report Released Date/Time: Dec 20, 2023 11:26 AM Reporting Lab: [facility] [address] [facility] [address] Performing Lab: [facility] [address] [facility] [address] [facility] P4 GLU,BUN,C REAT,LYTE S,CA CARBON DIOXIDE, TOTAL [MOLES/VOLU ME] IN SERUM OR PLASMA 21 mmol/L 20 - 30 12/30 Specimen Type: PLASMA Comment: , Tests performed on [employer] SN:[id number] (405). Ordering Provider: ROLAN BOLANOS Report Released Date/Time: Dec 20, 2023 11:26 AM Reporting Lab: [facility] [address] [facility] [facility] [address] Performing Lab: [facility] [address] [address] [facility] P4 GLU,BUN,C REAT,LYTE S,CA ANION GAP IN SERUM OR PLASMA 11 4 - 16 12/30 Specimen Type: PLASMA Comment: , Tests performed on [employer] SN:[id number] (405). Ordering Provider: ROLAN BOLANOS Report Released Date/Time: Dec 20, 2023 11:26 AM Reporting [facility]: [facility] [address] [facility] [address] Performing Lab: [facility] [address] [address] [facility] P4 GLU,BUN,C REAT,LYTE S,CA GLUCOSE [MASS/VOLUM E] IN SERUM OR PLASMA 86 mg/dL 65 - 100 12/30 Specimen Type: PLASMA Comment: , Tests performed on [employer] SN:[id number] (405). Ordering Provider: ROLAN BOLANOS Report Released Date/Time: Dec 20, 2023 11:26 AM Reporting Lab: [facility] [address] [address] Performing Lab: [facility] [address] [address] [facility] P4 GLU,BUN,C REAT,LYTE S,CA CREATININE [MASS/VOLUM E] IN SERUM OR PLASMA 1.00 mg/dL 0.50 - 1.50 12/30 Specimen Type: PLASMA Comment: , Tests performed on [employer] SN:[id number] (405). Ordering Provider: ROLAN BOLANOS Report Released Date/Time: Dec 20, 2023 11:26 AM Reporting Lab: [facility] [address] [address] Performing [facility]: [facility] [address] [facility] [facility] [address] [facility] P4 GLU,BUN,C REAT,LYTE S,CA CALCIUM [MASS/VOLUM E] IN SERUM OR PLASMA 10.3 mg/dL 8.5 - 10.5 12/30 Specimen Type: PLASMA Comment: , Tests performed on [employer] SN:[id number] (405). Ordering Provider: ROLAN BOLANOS Report Released Date/Time: Dec 20, 2023 11:26 AM Reporting Lab: [facility] [address] [address] Performing Lab: [facility] [address] [address] [facility] P4 GLU,BUN,C REAT,LYTE S,CA GLOMERULAR FILTRATION RATE/1.73 SQ M.PREDICTED [VOLUME RATE/AREA] IN SERUM, PLASMA OR BLOOD BY CREATININE- BASED FORMULA (CKD-EPI 2020) >90mL/ min 12/30 Specimen Type: PLASMA Comment: , Tests performed on [employer] SN:[id number] (442). Ordering Provider: ROLAN BOLANOS Report Released Date/Time: Dec 20, 2023 11:26 AM Reporting Lab: [place] [facility] [address] [address] Performing Lab: [place] [facility] [address] [facility] [address] [facility] Vital Signs Combined list of inpatient and outpatient Vital Signs from Department of Defense and Veterans Affairs, ranging from 12 months to all on record, depending upon the facility. Vital Sign Value Date Comments Source Encounters Combined list of: 1) Encounters from Department of Veterans Affairs facilities going back up to thelast 18 months. 2) Encounters from the Department of Defense facilities going back up to 280 months. Location Location Details Encounter Type Encounter Number Reason For Visit Attending Provider ADM Date DC Date Status Disposition Source [place] [facility] Outpatient Encounter [id number] NOEMÍSARIAHDIANA Ferrell 10/19 [place] [facility] [place] [facility] Outpatient Encounter [id number] BETTE DOWD 12/12 [place] [facility] [place] [facility] Outpatient [facility]counter [id number] 12/15 [place] [facility] [place] [facility] Outpatient Encounter [id number] NOEMÍSARIAHDIANA Ferrell 01/08 [place] [facility] [place] [facility] Outpatient Encounter [id number] STUART PERSAUD 01/09 [place] [facility] [place] [facility] Outpatient [facility]counter [id number] 01/09 [place] [facility] [place] [facility] Outpatient Encounter [id number] BETTE DOWD 01/11 [facility] Outpatient Encounter [id number] [facility] NEUROMUSCU LAR REEDUCATIO N [id number] Diagnos is: ICD-10- CM M54.50 Low back pain, unspeci fied
MICUCCI,SA LLY 04/03 [facility] Outpatient Encounter [id number] BETTE DOWD 04/20 [facility] Outpatient Encounter [id number] 05/02 [facility] Outpatient Encounter [id number] 05/07 [facility] CB OFF/OP EST MAY X REQ PHY/QHP [id number] Diagnos is: ICD-10- CM Z04.9 Encount er for examina tion and observa tion for unsp reason< br/> PETTIGLIO, IGNACIO A 05/08 [facility] NEUROMUSCU LAR REEDUCATIO N [id number] [id number] Diagnos is: ICD-10- CM M54.50 Low back pain, unspeci fied
MICUCCI,SA LLY 05/08 [facility] Outpatient Encounter [id number] 05/08 [facility] OFFICE O/P EST LOW 20-29 MIN [id number] Diagnos is: ICD-10- CM L50.9 Urticar ia, unspeci fied
VRAKATITMARILYN CORTES 05/08 [place] [facility] [place] [facility] Outpatient Encounter [id number] 05/08 [place] [facility] [place] [facility] Outpatient Encounter [id number] 05/09 [place] [facility] UNLISTED SPEC DERM SVC/PX [id number] Diagnos is: ICD-10- CM Z13.89 Encount er for screeni ng for other disorde r
LENTZHenry EAT 05/14 [facility] [place] [facility] Outpatient Encounter [id number] Diagnos is: ICD-10- CM L30.9 Dermati tis, unspeci fied
ARVNATHAN PARADA GINIA 05/15 [place] [facility] [place] [facility] Outpatient Encounter [id number] 05/17 [place] [facility] [place] [facility] Outpatient Encounter [id number] BROTHERS,G EORGE A JR 05/24 [place] [facility] [place] [facility] Outpatient Encounter [id number] BROTHERS,G EORGE A JR 06/04 [place] [facility] [place] [facility] Outpatient Encounter [id number] ABIDA DIALLO LLTosin 06/20 [place] [facility] [place] [facility] Outpatient Encounter [id number] 06/20 [place] [facility] [place] [facility] Outpatient Encounter [id number] 06/25 [place] [facility] [place] [facility] Outpatient Encounter [id number] 06/27 [place] [facility] Outpatient Encounter [id number] 07/04 [facility] Outpatient Encounter [id number] [id number] YOLANDA ARGUELLO B 07/04 [facility] Outpatient Encounter [id number] [id number] Armand NIEVES JR 07/04 [facility] OFFICE O/P EST LOW 20-29 MIN [id number] Diagnos is: ICD-10- CM L03.011 Celluli tis of right finger< br/> ANIL MCKOY A 07/04 [facility] Outpatient Encounter [id number] 08/09 [facility] Outpatient Encounter [id number] 09/28 [facility] Outpatient Encounter [id number] [id number] 10/12 [facility] Outpatient Encounter [id number] [id number] NICKELS,RO BA CAMPOS 11/07 [facility] Outpatient Encounter [id number] 11/08 [facility] Outpatient Encounter [id number] [id number] 11/08 [facility] Outpatient Encounter [id number] [id number] NICKELS,RO BYShefali CAMPOS 12/02 [facility] MTMS BY PHARM LABOR AND DELIVERY REGISTERED NURSE 15 MIN [id number] Diagnos is: ICD-10- CM I10 Essenti al (primar y) hyperte nsion<b r/> SOCORRO GUNDERSON A R 12/23 [facility] OFFICE O/P EST MOD 30 MIN [id number] Diagnos is: ICD-10- CM I86.8 Varicos e veins of other specifi ed sites<b r/> SAÚL BOLANOS NN 12/30 [facility] OFFICE O/P EST MOD 30 MIN [id number] [id number] Diagnos is: ICD-10- CM I86.8 Varicos e veins of other specifi ed sites<b r/> SAÚL BOLANOS NN 12/30 [facility] OFF/OP EST JANUARY X REQ PHY/QHP [id number] [id number] Diagnos is: ICD-10- CM Z23 Encount er for immuniz ation<b r/> Maribel PICKENS 12/30 [facility] [place] [facility] Outpatient Encounter [id number] NOEMÍ,PAMEL A 01/06 [place] [facility] MTMS BY PHARM EST 15 MIN [id number] Diagnos is: ICD-10- CM I10 Essenti al (primar y) hyperte nsion<b r/> JALYN,SOCORRO A R 01/13 [facility] [place] [facility] Outpatient Encounter [id number] NOEMÍ,PAMEL A 01/15 [place] [facility] [place] [facility] Outpatient Encounter [id number] [id number] NOEMÍ,PAMEL A 01/15 [place] [facility] [place] [facility] Outpatient Encounter [id number] IGNACIO ROSENBERG 01/16 [place] [facility] [place] [facility] Outpatient Encounter [id number] 01/20 [facility] Outpatient Encounter [id number] 03/05 [facility] EMERGENCY DEPT VISIT MOD MDM [id number] [id number] Diagnos is: ICD-10- CM M79.661 Pain in right lower leg<br/ > SNOOK,JUS IS P 03/05 [facility] OFF/OP CNSLTJ NEW/EST MOD 40 [id number] Diagnos is: ICD-10- CM I83.12 Varicos e veins of left lower extremi ty with inflamm ation<b r/> JUSTINE MCLEOD L 03/11 [facility] Outpatient Encounter [id number] [id number] 03/17 [facility] OFF/OP CONSLTJ NEW/[place] HI 55 [id number] [id number] Diagnos is: ICD-10- CM Z01.810 Encount er for preproc edural cardiov ascular examina tion
MICHEAL LEMUS 04/02 [facility] MTMS BY PHARM ADDL 15 MIN [id number] [id number] Diagnos is: ICD-10- CM I48.91 Unspeci fied atrial fibrill ation<b r/> AKBAR PATEL 04/04 [facility] MTMS BY PHARM ADDL 15 MIN [id number] [id number] Diagnos is: ICD-10- CM I48.91 Unspeci fied atrial fibrill ation<b r/> AKBAR PATEL CK 04/04 [facility] MTMS BY PHARM EST 15 MIN [id number] [id number] Diagnos is: ICD-10- CM I48.91 Unspeci fied atrial fibrill ation<b r/> AKBAR PATEL CK 04/08 [facility] OFF/OP EST JANUARY X REQ PHY/QHP [id number] [id number] Diagnos is: ICD-10- CM Z01.818 Encount er for other preproc edural examina tion
RANDY PITTS A 04/09 [facility] Outpatient Encounter [id number] 04/09 [facility] Outpatient Encounter [id number] [id number] Diagnos is: ICD-10- CM I48.91 Unspeci fied atrial fibrill ation<b r/> Mary FINK C 04/09 [facility] OFFICE O/P EST LOW 20 MIN [id number] [id number] Diagnos is: ICD-10- CM I83.12 Varicos e veins of left lower extremi ty with inflamm ation<b r/> YUMIKOBO,SATHYA SSE A 04/10 [facility] Outpatient Encounter [id number] [id number] 04/10 [facility] CRITICAL CARE FIRST HOUR [id number] [id number] Diagnos is: ICD-10- CM I48.91 Unspeci fied atrial fibrill ation<b r/> RADHA BLANCHARD 04/10 [facility] Outpatient Encounter [id number] [id number] 04/10 [facility] Outpatient Encounter [id number] [id number] 04/10 [facility] ECHO TRANSESOPH AGEAL [id number] [id number] CARISA BRUNER 04/10 [facility] OFFICE O/P EST SF 10 MIN [id number] [id number] Diagnos is: ICD-10- CM Z01.818 Encount er for other preproc edural examina tion
BARAK HOLGUIN 04/10 [facility] POSTOP FOLLOW-UP VISIT [id number] [id number] Diagnos is: ICD-10- CM Z48.89 Encount er for other specifi ed surgica l afterca re
CHELSIE,BARAK 04/10 [facility] Outpatient Encounter [id number] [id number] Maribel VAZQUEZ 04/10 [facility] Outpatient Encounter [id number] [id number] CHELSIEBARAK 04/10 [facility] MTMS BY PHARM ADDL 15 MIN [id number] [id number] Diagnos is: ICD-10- CM Z79.01 long-term (curren t) use of anticoa gulants
Ghassan SILVERIO 04/11 [facility] Outpatient Encounter [id number] 04/11 [facility] Outpatient Encounter [id number] [id number] 04/14 [facility] Outpatient Encounter [id number] [id number] 04/14 [facility] Procedures Combined list of: 1) Procedures from Department of Veterans Affairs facilities going back up to thelast 18 months, not all VA non-surgical procedures are included; 2) All procedures from the Department of Defense facilities. Procedure Procedure Type Code Date Perfomer Comments Sourc e CHRIS ECHO TRANSESOPHAGEAL 71049 04/10/2024 STARR JHAVERI [facility] Social History Combined list of available smoking, tobacco, and other social history from Department of Defense and Veterans Affairs facilities. Social History Type Response Date Comment Sourc e Tobacco smoking status NHIS VA-TOBACCO NEVER USED 12/24/2023 [facility] History of tobacco use VA-TOBACCO NEVER USED 02/27/2022 [facility] History of tobacco use VA-TOBACCO NEVER USED 11/04/2020 [facility] History of tobacco use VA-TOBACCO NEVER USED 10/24/2019 [facility] History of tobacco use VA-TOBACCO NEVER USED 09/11/2018 [facility] History of tobacco use LIFETIME NON-SMOKER 07/17/2002 [facility] History of tobacco use LIFETIME NON-SMOKER 03/15/2001 [facility] This section is an empty social history section. DoD Plan of Care List of future care activities from Department of Veterans Affairs facilities. Additional future care activities may be listed in the Assessment and Plan section. Date/Time Care Activity Care Activity Detail Facili ty 04/14/2024 AMBULATORY - NONE [facility] 04/15/2024 AMBULATORY - MEDICINE [facility] 04/21/2024 AMBULATORY - MEDICINE AMBULATORY - MEDICI NE [facility] 06/11/2024 AMBULATORY - MEDICINE AMBULATORY - MEDICI [facility] 06/18/2024 AMBULATORY - MEDICINE AMBULATORY - MEDICI NE [facility] 06/25/2024 AMBULATORY - MEDICINE AMBULATORY - MEDICI [facility] [facility] [place] [facility] 07/02/2024 AMBULATORY - MEDICINE AM[place]ATORY [place] [facility] 07/09/2024 AMBULATORY - MEDICINE AM[place]ATORY [place] [facility] 07/16/2024 AMBULATORY - MEDICINE AM[facility]ATORY [place] [facility] 07/23/2024 AMBULATORY - MEDICINE AM[facility]ATORY [place] [facility] 07/30/2024 AMBULATORY - MEDICINE AM[facility]ULATORY - [place] [facility] 08/06/2024 AMBULATORY - MEDICINE AM[facility]ULATORY - [place] [facility] 08/13/2024 AMBULATORY - MEDICINE [facility] 2024 AMBULATORY - MEDICINE AMBULATORY - MEDICI NE [facility] 08/27/2024 AMBULATORY - MEDICINE AMBULATORY - MEDICI NE [facility] 09/03/2024 AMBULATORY - MEDICINE AMBULATORY - MEDICI NE [facility] 09/10/2024 AMBULATORY - MEDICINE AMBULATORY - MEDICI NE [facility] 10/01/2024 AMBULATORY - MEDICINE AMBULATORY - MEDICI NE [facility] 10/08/2024 AMBULATORY - MEDICINE AMBULATORY - MEDICI NE [facility] 04/11/2024 Consult Order [facility] ([facility]) Cons Crime Lab Technician's Choice [facility] 04/14/2024 Laboratory - [place] Helper ry Order PT&INR BLOOD(BLUE-NA CIT) PLASMA SP [facility] 04/14/2024 Laboratory - [place] Order CBC NO DIFF BLOOD(LAV-EDTA-WB) SP [facility] Advance Directives List of completed, amended, or rescinded Advance Directives on record at Department of [facility] Affairs facilities. An actual copy of the Directive is not included. Date Advance Directive Provider Source 05/18/2021 ADVANCE DIRECTIVE RICHARD DAN [facility]
--- OUTSIDE RECORDS SUMMARY | 2024-04-14 13:55 | XMS_ITS | Encounter Summary ---
Author Organization [facility] [address] Care Team Providers Care Management Professional Name Role Phone David Templeton MD Primary Care Provider Reason for Visit * Reason Comments Atrial Fibrillation Encounter Details Date Type Department Care Team (Late st Contact Info) Description 08/15/2011 1:10 PM EST Office Visit Cardiology at [address] [phone] Francois Logan PA [facility] [address] A-fib (Primary Dx); Atrial fibrillation with rapid ventricular response Discharge [...] Sign Reading Time Taken Comments Blood Pressure 130/80 08/16/2011 1:39 PM EST Pulse 78 08/16/2011 1:39 PM EST Temperature - - Respiratory Rate 16 08/16/2011 1:39 PM EST Oxygen Saturation - - Inhaled Oxygen Concentration - - Weight 123.4 kg (272 lb) 08/15/2011 1:18 PM EST Height 182.9 cm (6') 08/15/2011 1:18 PM EST Body Mass Index 36.89 08/15/2011 1:18 PM EST documented in this encounter Patient Instructions * Patient Instructions* Francois Logan PA - 08/15/2011 2:16 PM EST Continue current medications including Diltiazem 360mg daily, Metoprolol 100mg daily, lisinopril 5mg daily and aspirin 325mg daily. Today you are in a normal sinus rhythm. Your next follow up appointment is SundayAugust [address] Allen. documented in this encounter Progress Notes * Francois Logan PA - 08/15/2011 2:22 PM EST Subjective: Patient ID: Cole Mar is a 35 y.o. male. HPI Mr Mar was hospitalized on 08/02/2011 following [...] then was told to discontinue these(lived in [place], [place] at the time). Following this most recent hospitalization, he was discharged on diltiazem CD 360mg daily, metoprolol 100mg daily and lisinopril 5mg daily. His CHADS2 score = 1(hypertension) and he was advised to take aspirin 325mg daily. He has not subsequently suffered any recurrent events. He specifically denies chest pain, dyspnea, pre-syncope or syncope since August 02. Review of Systems Constitutional: Negative for chills, decreased appetite, diaphoresis, fever, weakness, malaise/fatigue and night sweats. Cardiovascular: Negative for chest pain, claudication, cyanosis, dyspnea on exertion, irregular heartbeat, leg swelling, near-syncope, orthopnea, palpitations, PND and syncope. Respiratory: Negative for cough and hemoptysis. History Social History ??? Marital Status: Spouse Name: N/A Number of Children: N/A ??? Years of Education: N/A Occupational History ??? Not on file. Social History Main Topics ??? Smoking status: Never Smoker ??? Smokeless tobacco: Never Used ??? Alcohol Use: Yes occasional glass of wine ??? Drug Use: No ??? Sexually Active: Other Topics Concern ??? Not on file Social History Narrative ??? No narrative on file Family Hx: Family: grandfather secondary to VT @ age 65 Father alive Mother alive - DM, HTN Current outpatient prescriptions:DILTiazem (CARDIZEM CD) 360 mg 24 hr capsule, Take 1 capsule by mouth daily., Disp: 30 capsule, Rfl: 1; lamoTRIgine (LAMICTAL) 25 mg tablet, Take 1 tablet by mouth daily for 12 days., Disp: 12 tablet, Rfl: 0; lamoTRIgine (LAMICTAL) 25 mg tablet, Take 1 tablet by mouth 2 times daily for 14 days., Disp: 28 tablet, Rfl: 0 lamoTRIgine (LAMICTAL) 25 mg tablet, Take 2 tablets by mouth 2 times daily for 14 days., Disp: 56 tablet, Rfl: 0; lamoTRIgine (LAMICTAL) 25 mg tablet, Take 3 tablets by mouth 2 times daily for 14 days., Disp: 84 tablet, Rfl: 0; lamoTRIgine (LAMICTAL) 100 mg tablet, Take 1 tablet by mouth 2 times daily for 30 days., Disp: 60 tablet, Rfl: 0; metoprolol succinate (TOPROL-XL) 100 mg XL tablet, Take 1tablet by mouth daily., Disp: 30 tablet, Rfl: 1 aspirin (ENTERIC COATED ASPIRIN) 325 mg EC tablet, Take 1 tablet by mouth daily., Disp: 30 tablet, Rfl: 3; lisinopril (PRINIVIL;ZESTRIL) 5 mg tablet, Take 5 mg by mouth daily., Disp: , Rfl: ; phenytoin (DILANTIN) 100 mg ER capsule, Take 100 mg by mouth every morning., Disp: , Rfl: ; phenytoin (DILANTIN) 100 mg ER capsule, Take 200 mg by mouth every evening., Disp: , Rfl: levothyroxine (SYNTHROID) 200 mcg tablet, 175MC Tablet(s), PO, Once daily, Disp: , Rfl: ; citalopram (CELEXA) 20 mg tablet, , Disp: , Rfl: Objective: Physical Exam Constitutional: He is oriented to person, place, and time. He appears well- developed and well-nourished. No distress. HENT: Mouth/Throat: No oropharyngeal exudate. Neck: No JVD present. Cardiovascular: Normal rate, regular rhythm and normal heart sounds. No murmur heard. Pulmonary/Chest: Effort normal and breath sounds normal. No respiratory distress. He has no wheezes. He has no rales. He exhibits no tenderness. Abdominal: Soft. Musculoskeletal: Normal range of motion. He exhibits no edema. Neurological: He is alert and oriented to person, place, and time. Skin: Skin is warm and dry. He is not diaphoretic. 12 Lead EKG: NSR @ 64; IN 132, QRS 104, QTc 416ms Echocardiogram: [facility] [place]/02/2011 Moderate concentric left ventricular hypertrophy is observed. There is normal global left ventricular systolic function. Ejection fraction is estimated to be 70%. There are no left ventricular segmental wall motion abnormalities. 2. Right ventricular chamber size, wall thickness, and systolic function are within normal limits. 3. The cardiac valves appear structurally and functionally normal. Assessment and Plan: 35yo man presents for follow up after recent hospitalization for a question of seizure, found to bein afib with RVR, spontaneously converted to sinus rhythm on diltiazem. During this event he sustained significant troponin elevation to 0.19 and this met criteria for NSTEMI though this was felt to be due to demand ischemia. Echocardiogram showed preserved LVEF(70%) though review is suggestive of mild non-obstructive hypertrophic cardiomyopathy. He has a hx of PAF since at least 2003, however the actual burden is unknown as he is typically asymptomatic. He was discharged on diltiazem 360mg daily, metoprolol 100mg daily and lisinopril 5mg daily with 325mg of aspirin daily. Since discharge he has felt well without any recurrent symptoms. His CHADS2 score is 1(hypertension). I agree with current treatment and have no further recommendations or follow up regarding his atrial fibrillation. There was a plan expressed in his inpatient hospitalization notes to obtain a cardiac MRI as part of an assessment for possible ARVD or other cardiac tissue abnormality. This was not accomplished prior to discharge andthe patient is not aware of it having been scheduled as an outpatient. The true etiology of his collapse remains unclear. Relatively normal echo and no evidence of ventricular arrythmia is encouraging but not conclusive. A cardiac MRI and cardiac stress imaging study would be helpful in stratifying cardiac risk. He is scheduled to be seen in follow up by Dr. Allen on August 21. Provider: ABDULAZIZ Quiroz Provider#: [id number] Consult attending physician: Jude Palma MD documented in this encounter Plan of Treatment Not on file documented as of this encounter Procedures Procedure Name Priority Date/Time Associated Diagnosis Comments EKG 12-LEAD Routine 08/15/2011 1:26 PM EST A-fib documented in this encounter Results * EKG 12 Lead (08/15/2011 1:26 PM EST) Ventricular rate 64 BPM MUSE SYSTEM Atrial Rate 64 BPM MUSE SYSTEM P-R Interval 132 ms MUSE SYSTEM QRS Duration 104 ms MUSE SYSTEM Q-T Interval 404 ms MUSE SYSTEM QTC Calculated (Bezet) 416 ms MUSE SYSTEM Calculated P [place] 27 degrees MUSE SYSTEM Calculated R [place] 26 degrees MUSE SYSTEM Calculated T [place] 61 degrees MUSE SYSTEM INTERPRETATION Normal sinus rhythm Normal ECG When compared with ECG of 02-AUG-2011 23:43, Vent. rate has decreased BY ??34 BPM Confirmed by Deuce MENESES MD, Nathaniel ([id number]) on 08/16/2011 8:25:14 AM MUSE SYSTEM 08/15/2011 1:26 PM EST 08/16/2011 8:25 AM EST Valentín Palma MD ECG ORDERABLES MUSE SYSTEM documented in this encounter Visit Diagnoses Diagnosis A-fib- Primary Atrial fibrillation Atrial fibrillation with rapid ventricular response Atrial fibrillation documented in this encounter Care Teams Management Professional Relationship Specialty Start Date End Date David Templeton MD [address] [place] [address] PCP - General 08/01/11 09/19/11 documented as of this encounter
--- OUTSIDE RECORDS SUMMARY | 2024-04-14 13:55 | XMS_ITS | Encounter Summary ---
[place] [address] Care Team Providers Care Black Ash Burner Operator Name Role Phone Debbie Dukes MD Primary Care Provider [phone] Encounter Details Date Type Department Care Team (Late st Contact Info) Description 01/12/2012 [place] [address] Alexa Moyer APRN [facility] [place] [address] Social History Tobacco Use Types Packs/Day Years [...] on filedocumented in this encounter Care Teams Black Ash Burner Operator Relationship Specialty Start Date End Date Debbie Dukes MD [address] [place] [address] PCP - General 09/20/11 07/31/13 documented as of this encounter
--- OUTSIDE RECORDS SUMMARY | 2024-04-14 13:56 | XMS_ITS | Encounter Summary ---
Author Name [facility] [place] [facility] [place] Address [address] [place] [address] Care Team Providers Care Warpman Name Role Phone NATE BOLANOS Primary Care Provider Unavailabl e Selected Encounter This section includes the information on record at [place] for the Encounter. Date/Time Encounter Type Encounter Description Reason Provider Source Apr 10, 2024 03:07 PM OFFICE O/P EST SF 10 MIN ANESTHESIA PRE/POST-OP CONSULT ICD-10-CM Z01.818 Encounter for other preprocedural examination BARAK HOLGUIN Encounter Template Text not used by [place] Assessments - Encounter Diagnoses This section includes the primary and secondary diagnoses documented for the Encounter. Date/Time Primary/Secondary Diagnosis Diagnosis Name Provider Source Apr 10, 2024 03:09 PM PRIMARY Encounter for other preprocedural examination BARAK HOLGUIN [facility] Apr 10, 2024 03:09 PM SECONDARY Epilepsy, unsp, not intractable, without status epilepticus ABRAK HOLGUIN [facility] Apr 10, 2024 03:09 PM SECONDARY Essential (primary) hypertension BARAK HOLGUIN [facility] Apr 10, 2024 03:09 PM SECONDARY Gastro-esophageal reflux disease without esophagitis BARAK HOLGUIN [facility] Apr 10, 2024 03:09 PM SECONDARY Nonrheumatic mitral valve disorder, unspecified BARAK HOLGUIN [facility] Apr 10, 2024 03:09 PM SECONDARY Obstructive sleep apnea (adult) (pediatric) BARAK HOLGUIN [facility] Apr 10, 2024 03:09 PM SECONDARY Other obesity BARAK HOLGUIN [facility] Apr 10, 2024 03:09 PM SECONDARY Unspecified atrial fibrillation BARAK HOLGUIN [facility] Plan of Treatment: Future Appointments (+ 6 months) and Future Tests (+/- 45 days) The Plan of Treatment section includes future care activities for the patient from all [place] treatmentfacilities. This section includes future appointments and future orders which are active, pending or scheduled. Future Appointments This section includes appointments that were scheduled to occur 6 months from the date of the Encounter, up to a maximum of 20 appointments. The data comes from all [place] treatment facilities. Appointment Date/Time Appointment Type Appointme nt Facility Name Apr 14, 2024 07:00 AM AMBULATORY - NONE [facility] Apr 15, 2024 10:45 AM AM[place]ULATORY [place] [facility] Apr 21, 2024 11:00 AM AM[place] [facility] Jun 11, 2024 09:00 AM [place] [facility] Jun 18, 2024 09:00 AM [place] [facility] Jun 25, 2024 09:00 AM [place] [facility] Jul 02, 2024 09:00 AM [place] [facility] Jul 09, 2024 09:00 AM [place] [facility] Jul 16, 2024 09:00 AM [place] [facility] Jul 23, 2024 09:00 AM [place] [facility] Jul 30, 2024 09:00 AM [place] [facility] Aug 06, 2024 09:00 AM [place] [facility] Aug 13, 2024 09:00 AM [place] [facility] 2024 09:00 AM [place] [facility] Aug 27, 2024 09:00 AM [facility] [facility] Sep 03, 2024 09:00 AM AMBULATORY - MEDICINE [facility] Sep 10, 2024 09:00 AM AMBULATORY - MEDICINE [facility] Oct 01, 2024 09:00 AM AMBULATORY - MEDICINE [facility] Oct 08, 2024 09:00 AM AMBULATORY - MEDICINE [facility] Active, Pending, and Scheduled Orders This section includes a listing of several types of active, pending, and scheduled orders, including clinic medications orders, diagnostic test orders, procedure orders and consult orders; where the start date of the order is 45 days before the date of the Encounter or 45 days after the date of theEncounter. The data comes from all [place] treatment facilities. Test Date/Time Test Type Test Details Facility Name Apr 11, 2024 08:29 AM Consult [facility]ANTI-COAG[facility] Cons Ui Developer Designer's Choice [facility] Apr 14, 2024 12:00 AM Laboratory - Chemi stry Order CBC NO DIFF BLOOD(LAV-EDTA-WB) SP [facility] Apr 14, 2024 12:00 AM Laboratory - Chemi stry Order PT&INR BLOOD(BLUE-NA CIT) PLASMA SP [facility] Lab Results: +/- 30 days of the [...] Result - Unit Interpretation Reference Range Comment Apr 10, 2024 12:05 PM [facility] PT&INR Specimen Type: PLASMA Comment: Tests performed on [place] ACL TOP 350 SN [id number] (405) Criticals repeated,call ed to,read back by: ARUN SILVERIO 04/10/24 AT 12:44 PM Ordering Provider: VANESSA PATEL Report Released Date/Time: Apr 08, 2024 12:40 PM Reporting Lab: [facility] [address] [facility] [address] Performing Lab: [facility] [address] [facility] [address] INR 7.3 {ratio} HH 0.9-1.1 PT 75.7 s H 9.4-12.5 Apr 10, 2024 12:05 PM [facility] P4 GLU,BUN,CREAT,LYTES,CA Specimen Type: PLASMA Comment: , Tests performed on Rose Quenching Car Operator [place]ven SN:[id number] (405) Ordering Provider: Maribel MENDEZ Report Released Date/Time: Apr 07, 2024 03:31 PM Reporting [facility] [address] [facility] [address] Performing [facility]: [facility] [address] [facility] [address] UREA NITROGEN 21 mg/dL 7-25 SODIUM 135 mmol/L 135-145 POTASSIUM 4.1 mmol/L 3.5-5.0 CHLORIDE 102 mmol/L 100-110 CARBON DIOXIDE 27 mmol/L 20-30 ANION GAP 6 4-16 GLUCOSE 92 mg/dL 65-100 CREATININE 0.93 mg/dL 0.50-1.50 CALCIUM 9.5 mg/dL 8.5-10.5 eGFR(CKD-EPI 2020) >90 See_Comment Apr 07, 2024 10:26 AM [facility] PT&INR Specimen Type: PLASMA Comment: Tests performed on [place] ACL TOP 350 SN [id number] (245) Ordering Provider: LOS GOMEZ Report Released Date/Time: Apr 02, 2024 03:19 PM Reporting [facility] [address] [facility] [address] Performing Lab: [facility] [address] [facility] [address] INR 3.5 {ratio} H 0.9-1.1 PT 37.5 s H 9.4-12.5 Apr 02, 2024 03:30 PM [facility] CBC NO DIFF Specimen Type: BLOOD No comment entered. Ordering Provider: LOS GOMEZ Report Released Date/Time: Apr 02, 2024 03:17 PM Reporting [facility]: [facility] [address] [facility] [address] Performing [facility]: [facility] [address] [facility] [address] WBC 6.1 10*3/uL 4.5-11.0 RBC 4.77 10*6/uL 4.23-5.66 HGB 15.6 g/dL 12.8-17 HEMATOCRIT 44.9 39.2-50.4 MCV 94.1 fL 82-99 MCH 32.7 pg H 26.2-32.6 MCHC 34.7 g/dL 30.8-35.1 PLT 257 10*3/uL 140-360 MPV 8.9 fL L 9.2-12.4 RDW 14.1 12.0-16.0 Apr 02, 2024 03:30 PM [facility] PT&INR Specimen Type: PLASMA Comment: Tests performed on [place] ACL TOP 350 SN [id number] (405) Ordering Provider: LOS GOMEZ Report Released Date/Time: Apr 02, 2024 03:17 PM Reporting Lab: [facility] [address] [facility] [address] Performing Lab: [facility] [address] [facility] [address] INR 1.2 {ratio} H 0.9-1.1 PT 12.9 s H 9.4-12.5 Vital Signs: All taken on the encounter date This section contains inpatient and outpatient Vital Signs collected on the date of the Encounter. Date/Time Temperature Pulse Blood Pressure Respiratory Rate SP02 Pain Height Weight Body Mass Index Source Apr 10, 2024 11:58 AM 97.1 79 117/74 14 98 0 72 261.3 36 [facility] Apr 10, 2024 08:48 AM 96 76 142/96 16 98 0 [facility] Advance Directives: All historical and current Section Date Range: From patient's date of to the date document was created. This section includes ALL of a patient's completed or amended [place] Advance and Rescinded Directives. The entries below indicate that a directive exists for the patient, but an actual copy is not included with this document. The data comes from all [place] facilities. Date Advance Directives Provider Source May 18, 2021 ADVANCE DIRECTIVE RICHARD DAN [facility] Encounter Notes: All associated encounter notes This section contains the clinical notes associated to the Encounter. Date/Time Encounter Note(s) Provider Source Apr 10, 2024 03:07 PM ANESTHESIOLOGY NOT E: LOCAL TITLE: Anesthesia Pre-Induction Note STANDARD TITLE: ANESTHESIOLOGY NOTE DATE OF NOTE: APR 10, 2024@15:07 ENTRY DATE: APR 10, 2024@15:07:47 AUTHOR: BARAK HOLGUIN COSIGNER: URGENCY: STATUS: COMPLETED I have examined the patient on the date of procedure, and have reviewed and agreed with the anesthesia preop evaluation, documented in CPRS. The patient was interviewed and examined. The patient was alert, oriented and not in acute distress. Reviewed drug allergy history and prior anesthetics with the patient. Risk, benefits, assessment, anesthetic options and plan for this procedure were discussed with the patient. Questions, if any, were answered. Post-operative pain management was discussed. NPO status was addressed. Allergies are noted in CPRS. Past medical history documented in Pre Op note in CPRS. Consent obtained by proceduralist. PMH significant for anesthetic plan: AF, HTN, GENARO, MR, GERD, epilepsy, obesity Vitals: B/P PULSE WEIGHT BMI SpO2 PAIN 117/74 79 261.3 35.4 98 0 Airway: MP: 2 TMD: > 3FB ROM: Full Dentition: none loose Lungs: CTAB Heart: irregularly irregular, no murmur Other: thick neck ASA status: 3 The anesthesia plan: MAC The patient transferred to the procedure location. Reevaluated immediately prior to induction & start of the case. Fit for anesthesia. Personally performed the case. Total time spent: 13 minutes of this visit was spent in chart review, physical exam, assessment and anesthetic plan discussion, with the patient, as detailed above. /garrick/ BARAK HOLGUIN Anesthesiology Signed: 04/10/2024 15:09 BARAK HOLGUIN [facility]
--- OUTSIDE RECORDS SUMMARY | 2024-04-14 13:56 | XMS_ITS | Encounter Summary ---
Author Name [facility] [place] [facility] [place] [facility] [place] Address [address] [facility], [place] [address] Care Team Providers Care Industrial Organizational Psychologist Name Role Phone NATE BOLANOS Primary Care Provider Unavailabl e Selected Encounter This section includes the information on record at [place] for the Encounter. Date/Time Encounter Type Encounter Description Reason Pro vider Source Apr 10, 2024 01:09 PM Outpatient Encounter EVENT (HISTORICAL) IHE Encounter Template Text not used by [place] Plan of Treatment: Future Appointments (+ 6 months) and Future Tests (+/- 45 days) The Plan of Treatment section includes future care activities for the patient from all [place] treatmentfacilities. This section includes future appointments and future orders which are active, pending or scheduled. Future Appointments This section includes appointments that were scheduled to occur 6 months from the date of the Encounter, up to a maximum of 20 appointments. The data comes from all [place] treatment facilities. Appointment Date/Time Appointment Type Appointme nt Facility Name Apr 14, 2024 07:00 AM AMBULATORY - NONE [facility] [place] [facility] Apr 15, 2024 10:45 AM AMBULATORY - MEDIC[place] [facility] Apr 21, 2024 11:00 AM [place] [facility] Jun 11, 2024 09:00 AM [facility] [place] [facility] Jun 18, 2024 09:00 AM [place] [place] [facility] Jun 25, 2024 09:00 AM [place] [facility] Jul 02, 2024 09:00 AM [place] [facility] Jul 09, 2024 09:00 AM [place] [facility] Jul 16, 2024 09:00 AM [place] [facility] Jul 23, 2024 09:00 AM [place] [facility] Jul 30, 2024 09:00 AM [place] [facility] Aug 06, 2024 09:00 AM [place] [place] [facility] Aug 13, 2024 09:00 AM [place] [facility] 2024 09:00 AM [place] [place] [facility] Aug 27, 2024 09:00 AM [place] [facility] Sep 03, 2024 09:00 AM [place] [facility] Sep 10, 2024 09:00 AM [place] [facility] Oct 01, 2024 09:00 AM [place] [facility] Oct 08, 2024 09:00 AM [place] [facility] Active, Pending, and Scheduled Orders This section includes a listing of several types of active, pending, and scheduled orders, including clinic medications orders, diagnostic test orders, procedure orders and consult orders; where the start date of the order is 45 days before the date of the Encounter or 45 days after the date of theEncounter. The data comes from all [place] treatment facilities. Test Date/Time Test Type Test Details Facility Name Apr 11, 2024 08:29 AM Consult Order [facility] (ANTI-COAG) Cons Sponge [facility] Apr 14, 2024 12:00 AM Laboratory - Chemi stry Order CBC NO DIFF BLOOD(LAV-EDTA-WB) SP [facility] Apr 14, 2024 12:00 AM Laboratory - Chemi stry Order PT&INR BLOOD(BLUE-NA CIT) PLASMA SP [facility] Lab Results: +/- 30 days [...] Range Comment Apr 10, 2024 12:05 PM [place] [facility] PT&INR Specimen Type: PLASMA Comment: Tests performed on [place] ACL TOP 350 SN [id number] (405) Criticals repeated,call ed to,read back by: ARUN SILVERIO 04/10/24 AT 12:44 PM Ordering Provider: VANESSA PATEL Report Released Date/Time: Apr 08, 2024 12:40 PM Reporting Lab: [facility] [address] [facility] [address] Performing Lab: [facility] [address] [facility] [address] INR 7.3 {ratio} HH 0.9-1.1 PT 75.7 s H 9.4-12.5 Apr 10, 2024 12:05 PM [place] [facility] P4 GLU,BUN,CREAT,LYTES,CA Specimen Type: PLASMA Comment: , Tests performed on [employer] SN:[id number] ([id number]) Ordering Provider: Maribel MENDEZ Report Released Date/Time: Apr 07, 2024 03:31 PM Reporting Lab: [place] [facility] [address] [facility] [address] Performing Lab: [facility] [address] [facility] [address] UREA NITROGEN 21 mg/dL 7-25 SODIUM 135 mmol/L 135-145 POTASSIUM 4.1 mmol/L 3.5-5.0 CHLORIDE 102 mmol/L 100-110 CARBON DIOXIDE 27 mmol/L 20-30 ANION GAP 6 4-16 GLUCOSE 92 mg/dL 65-100 CREATININE 0.93 mg/dL 0.50-1.50 CALCIUM 9.5 mg/dL 8.5-10.5 eGFR(CKD-EPI 2020) >90 See_Comment Apr 07, 2024 10:26 AM [place] [facility] PT&INR Specimen Type: PLASMA Comment: Tests performed on [place] ACL TOP 350 SN [id number] ([id number]) Ordering Provider: LOS GOMEZ Report Released Date/Time: Apr 02, 2024 03:19 PM Reporting Lab: [facility] [address] [facility] [address] Performing Lab: [facility] [address] [facility] [address] INR 3.5 {ratio} H 0.9-1.1 PT 37.5 s H 9.4-12.5 Apr 02, 2024 03:30 PM [facility] CBC NO DIFF Specimen Type: BLOOD No comment entered. Ordering Provider: LOS GOMEZ Report Released Date/Time: Apr 02, 2024 03:17 PM Reporting Lab: [facility] [address] [facility] [address] Performing Lab: [facility] [address] [facility] [address] WBC 6.1 10*3/uL 4.5-11.0 RBC 4.77 10*6/uL 4.23-5.66 HGB 15.6 g/dL 12.8-17 HEMATOCRIT 44.9 39.2-50.4 MCV 94.1 fL 82-99 MCH 32.7 pg H 26.2-32.6 MCHC 34.7 g/dL 30.8-35.1 PLT 257 10*3/uL 140-360 MPV 8.9 fL L 9.2-12.4 RDW 14.1 12.0-16.0 Apr 02, 2024 03:30 PM [facility] PT&INR Specimen Type: PLASMA Comment: Tests performed on IL ACL TOP 350 SN [id number] (465) Ordering Provider: LOS GOMEZ Report Released Date/Time: Apr 02, 2024 03:17 PM Reporting Lab: [facility] [address] [facility] [address] Performing Lab: [facility] [address] [facility] [address] INR 1.2 {ratio} H 0.9-1.1 PT 12.9 s H 9.4-12.5 Vital Signs: All taken on the encounter date This section contains inpatient and outpatient Vital Signs collected on the date of the Encounter. Date/Time Temperature Pulse Blood Pressure Respiratory Rate SP02 Pain Height Weight Body Mass Index Source Apr 10, 2024 11:58 AM 97.1 79 117/74 14 98 0 72 261.3 36 [facility] Apr 10, 2024 08:48 AM 96 76 142/96 16 98 0 [facility] Advance Directives: All historical and current Section Date Range: From patient's date of to the date document was created. This section includes ALL of a patient's completed or amended [place] Advance and Rescinded Directives. The entries below indicate that a directive exists for the patient, but an actual copy is not included with this document. The data comes from all [place] facilities. Date Advance Directives Provider Source May 18, 2021 ADVANCE DIRECTIVE RICHARD DAN [facility]
--- OUTSIDE RECORDS SUMMARY | 2024-04-14 13:56 | XMS_ITS | Encounter Summary ---
Author Name [facility] [place] [facility] [place] Address [address] [facility], [place] [address] Care Team Providers Care Director News Name Role Phone NATE BOLANOS Primary Care Provider Unavailabl e Selected Encounter This section includes the information on record at [place] for the Encounter. Date/Time Encounter Type Encounter Description Reason Provider Source Apr 10, 2024 09:15 AM OFFICE O/P EST LOW 20 MIN VASCULAR SURGERY ICD-10-CM I83.12 Varicose veins of left lower extremity with inflammation JEFFY MERCADO Encounter Template Text not used by [place] Assessments - Encounter Diagnoses This section includes the primary and secondary diagnoses documented for the Encounter. Date/Time Primary/Secondary Diagnosis Diagnosis Name Provider Source Apr 10, 2024 08:54 AM PRIMARY Varicose veins of left lower extremity with inflammation JEFFY MERCADO [facility] Plan of Treatment: Future Appointments (+ 6 [...] 20 appointments. The data comes from all [place] treatment facilities. Appointment Date/Time Appointment Type Appointme nt Facility Name Apr 14, 2024 07:00 AM AM[place]ATORY - NONE [place] [facility] Apr 15, 2024 10:45 AM [place] [facility] Apr 21, 2024 11:00 AM [place] - [place] [facility] Jun 11, 2024 09:00 AM [place] - [place] [facility] Jun 18, 2024 09:00 AM [place] - [place] [facility] Jun 25, 2024 09:00 AM [place] - [place] [facility] Jul 02, 2024 09:00 AM [place] - [place] [facility] Jul 09, 2024 09:00 AM [place] - [place] [facility] Jul 16, 2024 09:00 AM [place] [facility] Jul 23, 2024 09:00 AM [place] - [place] [facility] Jul 30, 2024 09:00 AM [place] - [place]IC[place] [facility] Aug 06, 2024 09:00 AM [place] - [place] [facility] Aug 13, 2024 09:00 AM [place]ATORY - [place]IC[place] [facility] 2024 09:00 AM AM[place]ATORY - [place] [facility] Aug 27, 2024 09:00 AM [place]ORY - [place]IC[place] [facility] Sep 03, 2024 09:00 AM [place] - [place]IC[place] [facility] Sep 10, 2024 09:00 AM [place]ATORY - [place]IC[place] [facility] Oct 01, 2024 09:00 AM [place] - [place] [facility] Oct 08, 2024 09:00 AM [place]BULATORY - [place]IC[place] [facility] Active, Pending, and Scheduled Orders This section includes a listing of several types of active, pending, and scheduled orders, including clinic medications orders, diagnostic test orders, procedure orders and consult orders; where the start date of the order is 45 days before the date of the Encounter or 45 days after the date of theEncounter. The data comes from all [place] treatment facilities. Test Date/Time Test Type Test Details Facility Name Apr 11, 2024 08:29 AM Consult Order [facility] (ANTI-COAG) Cons Driver [facility] Apr 14, 2024 12:00 AM Laboratory - Chemi stry Order CBC NO DIFF BLOOD(LAV-EDTA-WB) SP [facility] Apr 14, 2024 12:00 AM Laboratory - Chemi stry Order PT&INR BLOOD(BLUE-NA CIT) PLASMA SP [facility] Lab Results: +/- 30 days of [...] Range Comment Apr 10, 2024 12:05 PM [facility] PT&INR Specimen Type: PLASMA Comment: Tests performed on [employer] TOP 350 SN [id number] ([id number]) Criticals repeated,call ed to,read back by: ARUN SILVERIO 04/10/24 AT 12:44 PM Ordering Provider: VANESSA PATEL Report Released Date/Time: Apr 08, 2024 12:40 PM Reporting Lab: [facility] [address] [facility] [address] Performing Lab: [facility] [address] [facility] [address] INR 7.3 {ratio} HH 0.9-1.1 PT 75.7 s H 9.4-12.5 Apr 10, 2024 12:05 PM [facility] P4 GLU,BUN,CREAT,LYTES,CA Specimen Type: PLASMA Comment: , Tests performed on [employer] SN:[id number] (405) Ordering Provider: Maribel MENDEZ Report Released Date/Time: Apr 07, 2024 03:31 PM Reporting Lab: [facility] [address] [facility] [address] Performing Lab: [facility] [address] [facility] [address] UREA NITROGEN 21 mg/dL 7-25 SODIUM 135 mmol/L 135-145 POTASSIUM 4.1 mmol/L 3.5-5.0 CHLORIDE 102 mmol/L 100-110 CARBON DIOXIDE 27 mmol/L 20-30 ANION GAP 6 4-16 GLUCOSE 92 mg/dL 65-100 CREATININE 0.93 mg/dL 0.50-1.50 CALCIUM 9.5 mg/dL 8.5-10.5 eGFR(CKD-EPI 2020) >90 See_Comment Apr 07, 2024 10:26 AM [place] [facility] PT&INR Specimen Type: PLASMA Comment: Tests performed on [place] ACL TOP 350 SN [id number] (405) Ordering Provider: LOS GOMEZ Report Released Date/Time: Apr 02, 2024 03:19 PM Reporting Lab: [place] [facility] [address] [facility] [address] Performing Lab: [place] [facility] [address] [facility] [address] INR 3.5 {ratio} H 0.9-1.1 PT 37.5 s H 9.4-12.5 Apr 02, 2024 03:30 PM [place] [facility] PT&INR Specimen Type: PLASMA Comment: Tests performed on [place] ACL TOP 350 SN [id number] (405) Ordering Provider: LOS GOMEZ Report Released Date/Time: Apr 02, 2024 03:17 PM Reporting Lab: [place] [facility] [address] [facility] [address] Performing Lab: [place] [facility] [address] [facility] [address] INR 1.2 {ratio} H 0.9-1.1 PT 12.9 s H 9.4-12.5 Apr 02, 2024 03:30 PM [place] [facility] CBC NO DIFF Specimen Type: BLOOD No comment entered. Ordering Provider: LOS GOMEZ Report Released Date/Time: Apr 02, 2024 03:17 PM Reporting Lab: [place] [facility] [address] [facility] [address] Performing Lab: [place] [facility] [address] [facility] [address] WBC 6.1 10*3/uL 4.5-11.0 RBC 4.77 10*6/uL 4.23-5.66 HGB 15.6 g/dL 12.8-17 HEMATOCRIT 44.9 39.2-50.4 MCV 94.1 fL 82-99 MCH 32.7 pg H 26.2-32.6 MCHC 34.7 g/dL 30.8-35.1 PLT 257 10*3/uL 140-360 MPV 8.9 fL L 9.2-12.4 RDW 14.1 12.0-16.0 Vital Signs: All taken on the encounter date This section contains inpatient and outpatient Vital Signs collected on the date of the Encounter. Date/Time Temperature Pulse Blood Pressure Respiratory Rate SP02 Pain Height Weight Body Mass Index Source Apr 10, 2024 11:58 AM 97.1 79 117/74 14 98 0 72 261.3 36 [facility] Apr 10, 2024 08:48 AM 96 76 142/96 16 98 0 [facility] Advance Directives: All historical and current Section Date Range: From patient's date of to the date document was created. This section includes ALL of a patient's completed or amended [place] Advance and Rescinded Directives. The entries below indicate that a directive exists for the patient, but an actual copy is not included with this document. The data comes from all [place] facilities. Date Advance Directives Provider Source May 18, 2021 ADVANCE DIRECTIVE RICHARD DAN [facility] Encounter Notes: All associated encounter notes This section contains the clinical notes associated to the Encounter. Date/Time Encounter Note(s) Provider Source Apr 10, 2024 08:50 AM VASCULAR SURGERY A TTENDING NOTE: LOCAL TITLE: [facility] Surgery/Attending Note STANDARD TITLE: VASCULAR SURGERY ATTENDING NOTE DATE OF NOTE: APR 10, 2024@08:50 ENTRY DATE: APR 10, 2024@08:50:48 AUTHOR: JEFFY MERCADO COSIGNER: URGENCY: STATUS: COMPLETED [facility] staff follow up varicose veins hpi: 48 year old male with symptomatic varicose veins. recently diagnosed with afib now on anticoagulation, getting cardioverted today. seen by cards preop. interested in having RLE GSV treated, remains symptomatic despite compression. history: Active problems - Computerized Problem List is the source for the followin. Low back pain 2. Varicose veins 3. Pain of right knee joint 4. Essential hypertension 5. Epilepsy 6. AF- Atrial Fibrillation (SCT [id number]) 7. Cardiomyopathy 8. Mitral valve regurgitation 9. Obstructive sleep apnea syndrome 10. GERD - Gastro-Esophageal Reflux Disease (SCT 374493988) 11. Depressive disorder 12. Genital warts 13. Family History of Psychiatric Condition 14. Family History of Diabetes Mellitus 15. Hypothyroidism (SNOMED CT [id number]) exam: BP: 142/96 (04/10/2024 08:48) Pulse: 76 (04/10/2024 08:48) Temp: 96 F [35.6 C] (04/10/2024 08:48) Resp: 16 (04/10/2024 08:48) HT(in): 70 in [177.8 cm] (12/31/2023 09:28) WT(lbs):265 lb [120.20 kg] (04/02/2024 12:30) 04/10/24 @ 0848 PULSE OXIMETRY: 98 Gen: NAD, alert and oriented x3 Card: Irregular Pulm: normal work of breathing on room air GI: Soft, NT ND Vasc: Varicose veins and varicosities bilatearlly Studies: None today 48 year old male non diabetic non smoker with symptomatic RIGHT worse than LEFT varicose veins. Varicose veins: We had a discussion about the risks and benefits and alternatives to RLE GSV stripping and stab phlebectomies. He asked questions and would like to proceed with surgery since his symptoms are refractory to conservative measures. He is getting cardioverted today, so we will need to coordinate with cardiology to determine when he can be off of his anticoagulation perioperatively. We can then schedule his surgery accordingly. He is in agreement with this plan and will call with any questions. Jeffy Mercado /garrick/ Jeffy Mercado MD MS Attending MD Vascular Surgery Signed: 04/10/2024 08:54 JEFFY MERACDO [facility]
--- OUTSIDE RECORDS SUMMARY | 2024-04-14 13:56 | XMS_ITS ---
Author Name [facility] [place] Organization [facility] [place] Address [address] [place] [address] Care Team Providers Care Topper Press Operator Automatic Name Role Phone NATE BOLANOS Primary Care Provider Unavailabl e Selected Encounter This section includes the information on record at [place] for the Encounter. Date/Time Encounter Type Encounter Description Reason Pro vider Source Apr 10, 2024 04:41 PM Outpatient Encounter ADMIN PAT ACTIVTIES (SANDEEPNONCT) BARAK HOLGUIN Encounter Template Text not used by [place] Plan of Treatment: Future Appointments (+ 6 months) and Future Tests (+/- 45 days) The Plan of Treatment section includes future care activities for the patient from all [place] treatmentfacilities. This section includes future appointments and future orders which are active, pending or scheduled. Future Appointments This section includes appointments that were scheduled to occur 6 months from the date of the Encounter, up to a maximum of 20 appointments. The data comes from all [place] treatment facilities. Appointment Date/Time Appointment Type Appointme nt Facility Name Apr 14, 2024 07:00 AM AMBULATORY - NONE ERAN CASTELLANO [facility] Apr 15, 2024 10:45 AM AMBULATORY - MEDICINE [place] BOWEN [facility] Apr 21, 2024 11:00 AM AMBULATORY - MEDICINE [place] Cruz BOWEN [facility] Jun 11, 2024 09:00 AM [place] [facility] Jun 18, 2024 09:00 AM [place] [facility] Jun 25, 2024 09:00 AM [place] [facility] Jul 02, 2024 09:00 AM [place] [facility] Jul 09, 2024 09:00 AM [place] [facility] Jul 16, 2024 09:00 AM [place] [facility] Jul 23, 2024 09:00 AM [place] [facility] Jul 30, 2024 09:00 AM [place]ATORY [place] [facility] Aug 06, 2024 09:00 AM [place] [facility] Aug 13, 2024 09:00 AM [place] [facility] 2024 09:00 AM [place]ORY [place] [facility] Aug 27, 2024 09:00 AM [place] [facility] Sep 03, 2024 09:00 AM [place] [facility] Sep 10, 2024 09:00 AM [place]ORY [place] [facility] Oct 01, 2024 09:00 AM [place] [facility] Oct 08, 2024 09:00 AM [place]ORY [place] [facility] Active, Pending, and Scheduled Orders This section includes a listing of several types of active, pending, and scheduled orders, including clinic medications orders, diagnostic test orders, procedure orders and consult orders; where the start date of the order is 45 days before the date of the Encounter or 45 days after the date of theEncounter. The data comes from all [place] treatment facilities. Test Date/Time Test Type Test Details Facility Name Apr 11, 2024 08:29 AM Consult Order [facility] (ANTI-COAG) Cons Manager Flight's Choice [facility] Apr 14, 2024 12:00 AM Laboratory - Chemi stry Order CBC NO DIFF BLOOD(LAV-EDTA-WB) SP [facility] Apr 14, 2024 12:00 AM Laboratory - Chemi stry Order PT&INR BLOOD(BLUE-NA CIT) PLASMA SP [facility] Lab Results: +/- 30 days of [...] Range Comment Apr 10, 2024 12:05 PM [facility] PT&INR Specimen Type: PLASMA Comment: Tests performed on [employer] ACL TOP 350 SN [id number] (405) Criticals repeated,call ed to,read back by: ARUN SILVERIO 04/10/24 AT 12:44 PM Ordering Provider: VANESSA PATEL Report Released Date/Time: Apr 08, 2024 12:40 PM Reporting Lab: [facility] [address] [facility] [address] Performing Lab: [facility] [address] [facility] [address] INR 7.3 {ratio} HH 0.9-1.1 PT 75.7 s H 9.4-12.5 Apr 10, 2024 12:05 PM [facility] P4 GLU,BUN,CREAT,LYTES,CA Specimen Type: PLASMA Comment: , Tests performed on [employer] Craven SN:[id number] (405) Ordering Provider: Maribel MENDEZ Report Released Date/Time: Apr 07, 2024 03:31 PM Reporting Lab: [facility] [address] [facility] [address] Performing Lab: [facility] [address] [facility] [address] UREA NITROGEN 21 mg/dL 7-25 SODIUM 135 mmol/L 135-145 POTASSIUM 4.1 mmol/L 3.5-5.0 CHLORIDE 102 mmol/L 100-110 CARBON DIOXIDE 27 mmol/L 20-30 ANION GAP 6 4-16 GLUCOSE 92 mg/dL 65-100 CREATININE 0.93 mg/dL 0.50-1.50 CALCIUM 9.5 mg/dL 8.5-10.5 eGFR(CKD-EPI 2020) >90 See_Comment Apr 07, 2024 10:26 AM [facility] PT&INR Specimen Type: PLASMA Comment: Tests performed on IL ACL TOP 350 SN [id number] (405) Ordering Provider: LOS GOMEZ Report Released Date/Time: Apr 02, 2024 03:19 PM Reporting Lab: [place] [facility] [address] [facility] [address] Performing Lab: [place] [facility] [address] [facility] [address] INR 3.5 {ratio} H 0.9-1.1 PT 37.5 s H 9.4-12.5 Apr 02, 2024 03:30 PM [place] [facility] PT&INR Specimen Type: PLASMA Comment: Tests performed on IL ACL TOP 350 SN [id number] (405) Ordering Provider: LOS GOMEZ Report Released Date/Time: Apr 02, 2024 03:17 PM Reporting Lab: [place] [facility] [address] [facility] [address] Performing Lab: [place] [facility] [address] [facility] [address] INR 1.2 {ratio} H 0.9-1.1 PT 12.9 s H 9.4-12.5 Apr 02, 2024 03:30 PM [place] [facility] CBC NO DIFF Specimen Type: BLOOD No comment entered. Ordering Provider: LOS GOMEZ Report Released Date/Time: Apr 02, 2024 03:17 PM Reporting Lab: [place] [facility] [address] [facility] [address] Performing Lab: [place] [facility] [address] [facility] [address] WBC 6.1 10*3/uL 4.5-11.0 RBC 4.77 10*6/uL [...] 117/74 14 98 0 72 261.3 36 [facility] Apr 10, 2024 08:48 AM 96 76 142/96 16 98 0 [facility] Advance Directives: All historical and current Section Date Range: From patient's date of to the date document was created. This section includes ALL of a patient's completed or amended [place] Advance and Rescinded Directives. The entries below indicate that a directive exists for the patient, but an actual copy is not included with this document. The data comes from all [place] facilities. Date Advance Directives Provider Source May 18, 2021 ADVANCE DIRECTIVE RICHARD DAN [facility] Encounter Notes: All associated encounter notes This section contains the clinical notes associated to the Encounter. Date/Time Encounter Note(s) Provider Source Apr 10, 2024 04:41 PM ANESTHESIOLOGY NOT E: LOCAL TITLE: ARK OR ANESTHESIA NOTE STANDARD TITLE: ANESTHESIOLOGY NOTE DATE OF NOTE: APR 10, 2024@16:41 ENTRY DATE: APR 10, 2024@16:41:44 AUTHOR: BARAK HOLGUIN EXP COSIGNER: URGENCY: STATUS: COMPLETED Patient: BISMARK HAYWARD SSN: [id number] Date of Operation: 04/10/2024 Surgery Start Time: 04/10/2024 13:31 Surgery End Time: 04/10/2024 13:58 Anesthesia Care Start: 04/10/2024 13:08 Anesthesia Care End: 04/10/2024 14:12 Anesthesia Method: Monitored 04/10/2024 13:57 (Primary), Level Of Consciousness: Sedated, Monitors Applied, Oxygen Therapy: Mask, EtCO2 Verified: Waveform Positioning: Pressure Points Padded & Checked ASA Number: 3 Procedure: CHRIS CARDIOVERSION ELECTRIC EXT Staff: --------- ZAK SANABRIA, SURGEON BARAK HOLGUIN PRIN. ANES. CHELSIE, BARAKANES. SUPER. CHELSIE ADAM, ANES. SUPER. CONSALVO, MARISA, PACU Nurse ROSA BLANCHARD, ATT. SURGEON Anesthesia Drugs: Propofol: 170 mg Propofol Infusion: 904.871 mg Anesthesia Fluids: RINGERS LACTATED SOLUTION: 800 ml Event: Patient Arrives in Operating Room 04/10/2024 13:13 Event: Patient Leaves Operating Room 04/10/2024 14:03 Event: Transport To: PACU - Stable 04/10/2024 14:05 Event: Report given 04/10/2024 14:10 /garrick/ BARAK HOLGUIN Anesthesiology Signed: 04/10/2024 16:41 BARAK HOLGUIN [facility]
--- OUTSIDE RECORDS SUMMARY | 2024-04-14 13:56 | XMS_ITS | Encounter Summary ---
Author Name [facility] [place] Organization [place] Address [address] [place] [address] Care Team Providers Care Machine Bender Name Role Phone NATE BOLANOS Primary Care Provider Unavailabl e Selected Encounter This section includes the information on record at [place] for the Encounter. Date/Time Encounter Type Encounter Description Reason Pro vider Source Apr 14, 2024 12:00 AM Outpatient Encounter EVENT (HISTORICAL) IHE Encounter Template Text not used by [place] Plan of Treatment: Future Appointments (+ 6 months) and Future Tests (+/- 45 days) The Plan of Treatment section includes future care activities for the patient from all [place] treatmentfacilities. This section includes future appointments and future orders which are active, pending or scheduled. Future Appointments This section includes appointments that were scheduled to occur 6 months from the date of the Encounter, up to a maximum of 20 appointments. The data comes from all [place] treatment facilities. Appointment Date/Time Appointment Type Appointme nt Facility Name Apr 15, 2024 10:45 AM AMBULATORY - MEDICINE [place] [facility] Apr 21, 2024 11:00 AM AMBULATORY - MEDICINE [place] [facility] Jun 11, 2024 09:00 AM AMBULATORY - MEDICINE [place] [facility] Jun 18, 2024 09:00 AM AM[place]ULATORY - [place]IC[place] [facility] Jun 25, 2024 09:00 AM [place] [facility] Jul 02, 2024 09:00 AM [place] [facility] Jul 09, 2024 09:00 AM [place] [facility] Jul 16, 2024 09:00 AM [place] [facility] Jul 23, 2024 09:00 AM [place] - [place]IC[place] [facility] Jul 30, 2024 09:00 AM [place] [facility] Aug 06, 2024 09:00 AM [place]ATORY [place] [facility] Aug 13, 2024 09:00 AM [place] [facility] 2024 09:00 AM AM[place]ULATORY [place] [facility] Aug 27, 2024 09:00 AM [place] [facility] Sep 03, 2024 09:00 AM [place] - [place]IC[place] [facility] Sep 10, 2024 09:00 AM [place]ORY - [place]IC[place] [facility] Oct 01, 2024 09:00 AM [place]ORY - [place]IC[place] [facility] Oct 08, 2024 09:00 AM AMBULATORY - [place]ICINE [place] [facility] Active, Pending, and Scheduled Orders This section includes a listing of several types of active, pending, and scheduled orders, including clinic medications orders, diagnostic test orders, procedure orders and consult orders; where the start date of the order is 45 days before the date of the Encounter or 45 days after the date of theEncounter. The data comes from all [place] treatment facilities. Test Date/Time Test Type Test Details Facility Name Apr 11, 2024 08:29 AM Consult Order [facility]CT [facility]ICAL PHARMACY (ANTI-COAG) Cons Setup Operator's Choice [facility] Apr 14, 2024 12:00 AM Laboratory - Chemi stry Order CBC NO DIFF BLOOD(LAV-EDTA-WB) SP [facility] Apr 14, 2024 12:00 AM Laboratory - Chemi stry Order PT&INR BLOOD(BLUE-NA CIT) PLASMA SP [facility] Lab Results: +/- 30 days of [...] Comment Apr 10, 2024 12:05 PM [facility] Specimen Type: PLASMA Comment: Tests performed on IL ACL TOP 350 SN [id number] (405) Criticals repeated,call ed to,read back by: ARUN SILVERIO 04/10/24 AT 12:44 PM Ordering Provider: VANESSA PATEL Report Released Date/Time: Apr 08, 2024 12:40 PM Reporting [facility] [address] [facility] [address] [facility]forming Lab[facility] [address] [facility] [address] INR 7.3 {ratio} HH 0.9-1.1 PT 75.7 s H 9.4-12.5 Apr 10, 2024 12:05 PM [facility] P4 GLU,BUN,CREAT,LYTES,CA Specimen Type: PLASMA Comment: , Tests performed on [employer] Craven SN:[id number] (405) Ordering Provider: Maribel MENDEZ Report Released Date/Time: Apr 07, 2024 03:31 PM Reporting [facility] [address] [facility] [address] [facility]forming Lab[facility] [address] [facility] [address] UREA NITROGEN 21 mg/dL 7-25 SODIUM 135 mmol/L 135-145 POTASSIUM 4.1 mmol/L 3.5-5.0 CHLORIDE 102 mmol/L 100-110 CARBON DIOXIDE 27 mmol/L 20-30 ANION GAP 6 4-16 GLUCOSE 92 mg/dL 65-100 CREATININE 0.93 mg/dL 0.50-1.50 CALCIUM 9.5 mg/dL 8.5-10.5 eGFR(CKD-EPI 2020) >90 See_Comment Apr 07, 2024 10:26 AM [facility] Specimen Type: PLASMA Comment: Tests performed on IL ACL TOP 350 SN [id number] (405) Ordering Provider: LOS GOMEZ Report Released Date/Time: Apr 02, 2024 03:19 PM Reporting [facility]: [facility] [address] [facility] [address] Performing [facility]: [facility] [address] [facility] [address] INR 3.5 {ratio} H 0.9-1.1 PT 37.5 s H 9.4-12.5 Apr 02, 2024 03:30 PM [facility] PT&INR Specimen Type: PLASMA Comment: Tests performed on IL ACL TOP 350 SN [id number] (405) Ordering Provider: LOS GOMEZ Report Released Date/Time: Apr 02, 2024 03:17 PM Reporting Lab: [facility] [address] [facility] [address] Performing Lab: [facility] [address] [facility] [address] INR 1.2 {ratio} H 0.9-1.1 PT 12.9 s H 9.4-12.5 Apr 02, 2024 03:30 PM [facility] CBC NO DIFF Specimen Type: BLOOD No comment entered. Ordering Provider: LOS GOMEZ Report Released Date/Time: Apr 02, 2024 03:17 PM Reporting Lab: [facility] [address] [facility] [address] Performing Lab: [facility] [address] [facility] [address] WBC 6.1 10*3/uL 4.5-11.0 RBC 4.77 10*6/uL 4.23-5.66 HGB 15.6 g/dL 12.8-17 HEMATOCRIT 44.9 39.2-50.4 MCV 94.1 fL 82-99 MCH 32.7 pg H 26.2-32.6 MCHC 34.7 g/dL 30.8-35.1 PLT 257 10*3/uL 140-360 MPV 8.9 fL L 9.2-12.4 RDW 14.1 12.0-16.0 Advance Directives: All historical and current Section Date Range: From patient's date of to the date document was created. This section includes ALL of a patient's completed or amended [place] Advance and Rescinded Directives. The entries below indicate that a directive exists for the patient, but an actual copy is not included with this document. The data comes from all [place] facilities. Date Advance Directives Provider Source May 18, 2021 ADVANCE DIRECTIVE RICHARD DAN [facility]
--- OUTSIDE RECORDS SUMMARY | 2024-04-14 13:56 | XMS_ITS | Encounter Summary ---
Author Name Department [place] Organization [place] Address [address] [facility], [place] [address] Care Team Providers Care Veneer Jointer Offbearer Name Role Phone NATE BOLANOS Primary Care Provider Unavailabl e Selected Encounter This section includes the information on record at [place] for the Encounter. Date/Time Encounter Type Encounter Description Reason Pro vider Source Apr 10, 2024 01:08 PM Outpatient Encounter EVENT (HISTORICAL) IHE Encounter [...] AMBULATORY - NONE [place] [facility] Apr 15, 2024 10:45 AM AMBULATORY - [place]IC[place] [facility] Apr 21, 2024 11:00 AM [place]ULATORY [place] [facility] Jun 11, 2024 09:00 AM [place]ULATORY - [place]IC[place] [facility] Jun 18, 2024 09:00 AM AMBULATORY - [place]IC[place] [facility] Jun 25, 2024 09:00 AM [place]ATORY - [place]IC[place] [facility] Jul 02, 2024 09:00 AM AMBULATORY - [place]ICINE [place] [facility] Jul 09, 2024 09:00 AM AMBULATORY - [place]ICINE [place] [facility] Jul 16, 2024 09:00 AM [place]ULATORY - [place]ICINE [place] [facility] Jul 23, 2024 09:00 AM AMBULATORY - [place]ICINE [place] [facility] Jul 30, 2024 09:00 AM AMBULATORY - [place]ICINE [place] [facility] Aug 06, 2024 09:00 AM AMBULATORY - [place]ICINE [place] [facility] Aug 13, 2024 09:00 AM AMBULATORY - [place]ICINE [place] [facility] 2024 09:00 AM AMBULATORY - [place]ICINE [place] [facility] Aug 27, 2024 09:00 AM AMBULATORY - [place]ICINE [place] [facility] Sep 03, 2024 09:00 AM AMBULATORY - [place]ICINE [place] [facility] Sep 10, 2024 09:00 AM AMBULATORY - [place]ICINE [place] [facility] Oct 01, 2024 09:00 AM AMBULATORY - MEDICINE [place] [facility] Oct 08, 2024 09:00 AM AMBULATORY - [place]ICINE [place] [facility] Active, Pending, and Scheduled Orders [...] Order [facility] (ANTI-COAG) Cons Refrigeration Tech's Choice [facility] Apr 14, 2024 12:00 AM Laboratory - Chemi stry Order CBC NO DIFF BLOOD(LAV-EDTA-WB) SP [facility] Apr 14, 2024 12:00 AM Laboratory - Chemi stry Order PT&INR BLOOD(BLUE-NA CIT) PLASMA SP [facility] Lab Results: +/- 30 days of [...] performed on IL ACL TOP 350 SN [id number] (405) Criticals repeated,call ed to,read back by: ARUN SILVERIO 04/10/24 AT 12:44 PM Ordering Provider: VANESSA PATEL Report Released Date/Time: Apr 08, 2024 12:40 PM Reporting Lab: [facility] [address] [facility] [address] Performing Lab: [facility] [address] [facility] [address] INR 7.3 {ratio} HH 0.9-1.1 PT 75.7 s H 9.4-12.5 Apr 10, 2024 12:05 PM [place] [facility] P4 GLU,BUN,CREAT,LYTES,CA Specimen Type: PLASMA Comment: , Tests performed on [employer] Craven SN:[id number] (405) Ordering Provider: Maribel MENDEZ Report Released Date/Time: Apr 07, 2024 03:31 PM Reporting Lab: [place] [facility] [address] [facility] [address] Performing Lab: [facility] [address] [facility] [address] UREA NITROGEN 21 mg/dL 7-25 SODIUM 135 mmol/L 135-145 POTASSIUM 4.1 mmol/L 3.5-5.0 CHLORIDE 102 mmol/L 100-110 CARBON DIOXIDE 27 mmol/L 20-30 ANION GAP 6 4-16 GLUCOSE 92 mg/dL 65-100 CREATININE 0.93 mg/dL 0.50-1.50 CALCIUM 9.5 mg/dL 8.5-10.5 eGFR(CKD-EPI 2020) >90 See_Comment Apr 07, 2024 10:26 AM [place] [facility] PT&INR Specimen Type: PLASMA Comment: Tests performed on IL ACL TOP 350 SN [id number] (405) Ordering Provider: LOS GOMEZ Report Released Date/Time: Apr 02, 2024 03:19 PM Reporting Lab: [place] [facility] [address] [facility] [address] Performing Lab: [place] [facility] [address] [facility] [address] INR 3.5 {ratio} H 0.9-1.1 PT 37.5 s H 9.4-12.5 Apr 02, 2024 03:30 PM [place] [facility]INR Specimen Type: PLASMA Comment: Tests performed on IL ACL TOP 350 SN [id number] (405) Ordering Provider: LOS GOMEZ Report Released Date/Time: Apr 02, 2024 03:17 PM Reporting Lab: [place] [facility] [address] [facility] [address] Performing Lab: [facility] [address] [facility] [address] INR 1.2 {ratio} H 0.9-1.1 PT 12.9 s H 9.4-12.5 Apr 02, 2024 03:30 PM [place] [facility] CBC NO DIFF Specimen Type: BLOOD No comment entered. Ordering Provider: LOS GOMEZ Report Released Date/Time: Apr 02, 2024 03:17 PM Reporting Lab: [facility] [address] [facility] [address] Performing Lab: [facility] [facility] [address] [facility] [address] WBC 6.1 10*3/uL 4.5-11.0 RBC 4.77 10*6/uL [...] 117/74 14 98 0 72 261.3 36 [facility] Apr 10, 2024 08:48 AM 96 76 142/96 16 98 0 [facility] Advance Directives: All historical and current Section Date Range: From patient's date of to the date document was created. This section includes ALL of a patient's completed or amended [place] Advance and Rescinded Directives. The entries below indicate that a directive exists for the patient, but an actual copy is not included with this document. The data comes from all [place] facilities. Date Advance Directives Provider Source May 18, 2021 ADVANCE DIRECTIVE RICHARD DAN [facility]
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
--- OUTSIDE RECORDS SUMMARY | 2024-04-14 13:56 | XMS_ITS | Encounter Summary ---
Author Name [facility] [place] [facility] [place] Organization [place] Address [address] [place] [address] Care Team Providers Care Bread Room Hand Name Role Phone LUIS MIGUELNATE Primary Care Provider Unavailabl e Selected Encounter This section includes the information on record at [place] for the Encounter. Date/Time Encounter Type Encounter Description Reason Pro vider Source May 08, 2023 12:34 PM Outpatient Encounter ADMIN PAT ACTIVTIES (SANDEEPNONCT) IHE Encounter Template Text not used by [place] Plan of Treatment: Future Appointments (+ 6 months) and Future Tests (+/- 45 days) The Plan of Treatment section includes future care activities for the patient from all [place] treatmentfacilities. This section includes future appointments and future orders which are active, pending or scheduled. Future Appointments This section includes appointments that were scheduled to occur 6 months from the date of the Encounter, up to a maximum of 20 appointments. The data comes from all [place] treatment facilities. Appointment Date/Time Appointment Type Appointme nt Facility Name May 14, 2023 08:00 AM AMBULATORY - MEDICINE [facility] May 29, 2023 11:45 AM AMBULATORY - NONE [facility] Jul 04, 2023 03:00 PM AMBULATORY - MEDICINE [place] [facility] Oct 24, 2023 01:15 PM AMBULATORY - NONE [facility] Lab Results: +/- 30 days of the encounter This section includes the Chemistry and Hematology Lab Results on record with [place] for the patient. Radiology Reports and Pathology Reports are provided separately, in subsequent sections. Lab Results This section contains the Chemistry/Hematology Results that were resulted 30 days before or 30 daysafter the date of the Encounter. Date/Time Source Result Type Result - Unit Interpretation Reference Range Comment May 30, 2023 11:35 AM [facility] LIVER PROFILE Specimen Type: PLASMA Comment: Tests performed on [employer] (405) SN:[id number] Ordering Provider: GRETEL NIEVES JR Report Released Date/Time: May 24, 2023 03:03 PM Reporting Lab: [facility] [address] [facility] [address] Performing Lab: [facility] [address] [place] [address] PROTEIN, TOTAL 7.0 g/dL 6.0-8.5 ALBUMIN 3.7 g/dL 3.2-5.0 BILIRUBIN, TOTAL 0.4 mg/dL 0.2-1.2 ALKALINE PHOSPHATASE 116 U/L 40-150 ALT(SGPT) 40 U/L 7-52 AST(SGOT) 38 U/L H 5-34 FIB-4 SCORE 1.30 {index} <2.67 May 30, 2023 11:35 AM [facility] CBC NO DIFF Specimen Type: BLOOD No comment entered. Ordering Provider: GRETEL NIEVES JR Report Released Date/Time: May 24, 2023 03:03 PM Reporting Lab: [facility] [address] [facility] [address] Performing Lab: [facility] [address] [facility] [address] WBC 4.8 10*3/uL 4.5-11.0 RBC 4.56 10*6/uL 4.23-5.66 HGB 14.9 g/dL 12.8-17 HEMATOCRIT 43.6 39.2-50.4 MCV 95.6 fL 82-99 MCH 32.7 pg H 26.2-32.6 MCHC 34.2 g/dL 30.8-35.1 PLT 221 10*3/uL 140-360 MPV 9.3 fL 9.2-12.4 RDW 13.1 12.0-16.0 May 30, 2023 11:35 AM [facility] CB P4 GLU,BUN,CREAT,LYTES,CA Specimen Type: PLASMA Comment: Tests performed on [employer] (405) SN:[id number] Ordering Provider: GREETL NIEVES JR Report Released Date/Time: May 24, 2023 03:03 PM Reporting Lab: [facility] [address] [facility] [address] Performing Lab: [facility] [address] [facility] [address] UREA NITROGEN 25 mg/dL 7-25 SODIUM 135 mmol/L 135-145 POTASSIUM 4.5 mmol/L 3.5-5.0 CHLORIDE 105 mmol/L 100-110 CARBON DIOXIDE 21 mmol/L 20-30 ANION GAP 9 mmol/L 4-16 GLUCOSE 90 mg/dL 65-100 CREATININE 0.86 mg/dL 0.5-1.5 CALCIUM 9.0 mg/dL 8.5-10.5 eGFR(CKD-EPI 2020) >90.0 mL/min >60 May 30, 2023 11:35 AM [facility] LIPOPROTEIN CHOLESTEROL FRACT. PANEL Specimen Type: PLASMA Comment: Tests performed on [employer] (405) SN:[id number] Ordering Provider: GRETEL NIEVES JR Report Released Date/Time: May 24, 2023 03:03 PM Reporting [facility] [address] [facility] [address] Performing Lab: [facility] [address] [facility] [address] CHOLESTEROL 173 mg/dL 0-199 TRIGLYCERIDE 44 mg/dL 0-149 HDL CHOLESTEROL 68 mg/dL >40 LDL CHOLESTEROL (CALC) 96 mg/dL 0-129 May 30, 2023 11:35 AM [facility] GLYCOHEMOGLOBIN (A1C ONLY) Specimen Type: BLOOD Comment: Tests performed on [employer] (405) SN:[id number] Values obtained from A1C measurements can vary. For typical A1C assays, a reported value of 7.0 could actually be between 6.72 and 7.28 if measured by a reference method. A reported value of 9.0 could actually be between 8.73 and 9.27. Reference http://www.ng sp.org/CAPdat a.asp Ordering Provider: GRETEL NIEVES JR Report Released Date/Time: May 24, 2023 03:03 PM Reporting Lab: [place] [facility] [address] [facility] [address] Performing Lab: [place] [facility] [address] [facility] [address] HEMOGLOBIN A1C 5.0 4.0-5.6 May 30, 2023 11:35 AM [facility] VITAMIN B-12 Specimen Type: SERUM Comment: Tests performed on [employer] (405) SN:[id number] Ordering Provider: GRETEL NIEVES JR Report Released Date/Time: May 24, 2023 03:03 PM Reporting Lab: [place] [facility] [address] [facility] [address] Performing Lab: [place] [facility] [address] [facility] [address] VITAMIN B-12 905 pg/mL H 200-900 May 30, 2023 11:35 AM [facility] VIT D 25-OH([facility]) Specimen Type: SERUM Comment: Tests performed on [employer] (405) SN:[id number] Ordering Provider: GRETEL NIEVES JR Report Released Date/Time: May 24, 2023 03:03 PM Reporting Lab: [place] [facility] [address] [facility] [address] Performing Lab: [place] [facility] [address] [facility] [address] VIT D 25-OH([facility]) 39.4 ng/mL 20-50 May 30, 2023 11:35 AM [facility] THYROID TESTING CASCADE Specimen Type: SERUM Comment: Tests performed on [employer] (405) SN:[id number] Ordering Provider: GRETEL NIEVES JR Report Released Date/Time: May 24, 2023 03:03 PM Reporting Lab: [place] [facility] [address] [facility] [address] Performing Lab: [place] [facility] [address] [facility] [address] T4,FREE 0.9 ng/dL 0.6-1.6 TSH 7.52 u[IU]/mL H 0.35-5.00 Advance Directives: All historical and current Section Date Range: From patient's date of to the date document was created. This section includes ALL of a patient's completed or amended [place] Advance and Rescinded Directives. The entries below indicate that a directive exists for the patient, but an actual copy is not included with this document. The data comes from all [place] facilities. Date Advance Directives Provider Source May 18, 2021 ADVANCE DIRECTIVE RICHARD DAN [facility] Encounter Notes: All associated encounter notes This section contains the clinical notes associated to the Encounter. Date/Time Encounter Note(s) Provider Source May 08, 2023 12:34 PM TELEHEALTH NOTE: LOCAL TITLE: [place] VIDEO CONNECT CAPABILITY ASSESSMENT STANDARD TITLE: TELEHEALTH NOTE DATE OF NOTE: MAY 08, 2023@12:34 ENTRY DATE: MAY 08, 2023@12:34:36 AUTHOR: MARITA MOSES COSIGNER: URGENCY: STATUS: COMPLETED VVC Modality: [place] Video Connect (VVC): is using their OWN technology to connect for videoconferencing. 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 He will be using his personal Android Smart Phone - This patient declined the test but did accept a verbal overview of the process on how to connect to the link that will be sent to him via email and text message. His email listed in his chart is still accurate as well as the cell phone number that is listed. He understands to hold onto the VCM visit links until after each virtual appt has been completed of which then he can delete once complete. This patient agreed to reminder alerts via email and text message alerts to his cell phone and understands that standard rates may apply per service provider. /garrick/ MARITA MOSES Signed: 05/08/2023 12:35 MARITA MOSES [facility]
--- OUTSIDE RECORDS SUMMARY | 2024-04-14 13:56 | XMS_ITS | Encounter Summary ---
Author Name [facility] [place] [facility] [place] Organization [place] Address [address] [facility], [place] [address] Care Team Providers Care Seafood And Service Meat Manager Name Role Phone LUIS IMGUEL NATE Primary Care Provider Unavailabl e Selected Encounter This section includes the information on record at [place] for the Encounter. Date/Time Encounter Type Encounter Description Reason Provider Source Apr 10, 2024 01:12 PM ECHO TRANSESOPHAGEAL EVENT (HISTORICAL) Maribel BRUNER [place] Encounter Template Text not used by [place] Plan of Treatment: Future Appointments (+ 6 months) and Future Tests (+/- 45 days) The Plan of Treatment section includes future care activities for the patient from all [place] treatmentfacilities. This section includes future appointments and future orders which are active, pending or scheduled. Future Appointments This section includes appointments that were scheduled to occur 6 months from the date of the Encounter, up to a maximum of 20 appointments. The data comes from all [place] treatment facilities. Appointment Date/Time Appointment Type Appointme nt Facility Name Apr 14, 2024 07:00 AM AMBULATORY - NONE [place] [facility] Apr 15, 2024 10:45 AM AMBULATORY - MEDICINE AZALEA BOWEN [facility] Apr 21, 2024 11:00 AM AMBULATORY - [place]IC[place] [facility] Jun 11, 2024 09:00 AM AMBULATORY - MEDICINE [place] [facility] Jun 18, 2024 09:00 AM AMBULATORY - MEDICINE [place] [facility] Jun 25, 2024 09:00 AM AMBULATORY - MEDICINE [place] [facility] Jul 02, 2024 09:00 AM AMBULATORY - MEDICINE [place] [facility] Jul 09, 2024 09:00 AM AMBULATORY - MEDICINE [place] [facility] Jul 16, 2024 09:00 AM AMBULATORY - MEDICINE [place] [facility] Jul 23, 2024 09:00 AM AMBULATORY - MEDICINE [place] [facility] Jul 30, 2024 09:00 AM AMBULATORY - MEDICINE [place] [facility] Aug 06, 2024 09:00 AM AMBULATORY - MEDICINE [place] [facility] Aug 13, 2024 09:00 AM AMBULATORY - MEDICINE [place] [facility] 2024 09:00 AM AMBULATORY - MEDICINE [place] [facility] Aug 27, 2024 09:00 AM AMBULATORY - MEDICINE [place] [facility] Sep 03, 2024 09:00 AM AMBULATORY - MEDICINE [place] [facility] Sep 10, 2024 09:00 AM AMBULATORY - MEDICINE [place]ALEA [place] [facility] Oct 01, 2024 09:00 AM AMBULATORY - MEDICINE [place] [facility] Oct 08, 2024 09:00 AM AMBULATORY - MEDICINE [place] [facility] Active, Pending, and Scheduled Orders This section includes a listing of several types of active, pending, and scheduled orders, including clinic medications orders, diagnostic test orders, procedure orders and consult orders; where the start date of the order is 45 days before the date of the Encounter or 45 days after the date of theEncounter. The data comes from all [place] treatment facilities. Test Date/Time Test Type Test Details Facility Name Apr 11, 2024 08:29 AM Consult Order [facility]CT [facility]ICAL PHARMACY (ANTI-COAG) Cons Payroll And Benefits Specialist's Choice [facility] Apr 14, 2024 12:00 AM Laboratory - Chemi stry Order CBC NO DIFF BLOOD(LAV-EDTA-WB) SP [facility] Apr 14, 2024 12:00 AM Laboratory - Chemi stry Order PT&INR BLOOD(BLUE-NA CIT) PLASMA SP [facility] Surgical Procedures: All associated to the encounter This section includes all Surgical Procedures and Surgical Procedure Notes associated to the Encounter. Surgical Procedures This section includes all Surgical Procedures associated to the Encounter. Surgical Procedure Date/Time Procedure Procedure Type Procedure Qualifiers Provider Source Apr 10, 2024 01:12 PM CHRIS ECHO TRANSESOPHAGEAL STARR JHAVERI [facility] Surgical Notes This section includes all Surgical Notes associated to the Procedure. Date/Time Apr 10, 2024 01:12 PM NURSING OPERATIVE NOTE: LOCAL TITLE: NURSE INTRAOPERATIVE REPORT STANDARD TITLE: NURSING OPERATIVE NOTE DATE OF NOTE: APR 10, 2024@13:12 ENTRY DATE: APR 10, 2024@14:03:49 AUTHOR: KIMBERLEY BRUNER EXP COSIGNER: URGENCY: STATUS: COMPLETED SUBJECT: Case #: [id number] Operating Room: OR 1 Surgical Priority: ELECTIVE Patient in Hold: NOT ENTERED Patient in OR: APR 10, 2024 13:12 Operation Begin: APR 10, 2024 13:31 Operation End: NOT ENTERED Patient Out OR: APR 10, 2024 14:03 Major Operations Performed: Primary: CHRIS Robotic Assistance (Y/N): NO Other: CARDIOVERSION Wound Classification: CLEAN/CONTAMINATED Operation Disposition: OUTPATIENT/DISCHARGE Discharged Via: STRETCHER Primary Surgeon: STARR JHAVERI Mobile Homes Repairer: CARROLL GOLDBERG Attending Surgeon: ROSA BLANCHARD Second Assist: N/A Behavioral School Counselors: BARAK HOLGUIN Broadband Engineer Anesth: N/A OR Support Personnel: Scrubbed Circulating N/A KIMBERLEY BRUNER () Preop Mood: ANXIOUS Preop Consc: ALERT-ORIENTED Preop Skin Integ: WARM, DRY & INTACT Preop [place]: N/A --- Time Out Checklist --- Confirm Correct Patient Identity: YES Confirm Procedure To Be Performed: YES Confirm Site of the Procedure, Including Laterality: YES Confirm Valid Consent: YES, i-MED Confirm Patient Position: YES Confirm Procedure Site has been Marked Appropriately and that the Site of the Francois is Visible After Prep and Draping: YES Pertinent Medical Images Have Been Confirmed: N/A Correct Medical Implant(s) is Available: NOT APPLICABLE Availability of Special Equipment: YES Appropriate Antibiotic Prophylaxis: NOT INDICATED Appropriate Deep Vein Thrombosis Prophylaxis: NOT INDICATED Blood Availability: NOT INDICATED Checklist Comment: SCOPE # [id number] Time-Out Document Completed By: KIMBERLEY BRUNER Time-Out Completed: APR 10, 2024@13:25 Preop Surgical Site Hair Removal by: N/A Surgical Site Hair Removal Method: NO HAIR REMOVED Hair Removal Comments: NO COMMENTS ENTERED Surgery Position(s): SUPINE Placed: N/A Anesthesia Technique(s): MONITORED ANESTHESIA CARE Medications: LIDOCAINE HCL 2% VISCOUS LIQUID Possible Item Retention: YES Sponge Final Count Correct: NOT APPLICABLE Sharps Final Count Correct: NOT APPLICABLE Instrument Final Count Correct: YES Wound Sweep: YES Wound Sweep Comment: NO COMMENTS ENTERED Intra-Operative X-Ray: NO Intra-Operative X-Ray Comment: NO COMMENTS ENTERED Counter: KIMBERLEY BRUNER Counts Verified By: ROSA BLANCHARD Blood Loss: 0 ml Urine Output: Postoperative Mood: RELAXED Postoperative Consciousness: RESTING Postoperative Skin Integrity: WARM, DRY & INTACT Sequential Compression Device: NO Immediate Use Steam Sterilization Episodes: Contamination: 0 SPS Processing/OR Management Issues: 0 Emergency Case: 0 No Better Option: 0 Loaner or Short Notice Instrument: 0 Decontamination of Instruments Contaminated During the Case: 0 Nursing Care Comments: NO COMMENTS ENTERED /es/ KIMBERLEY BRUNER registered nurse Signed: 04/10/2024 14:04 KIMBERLEY BRUNER Lab Results: +/- 30 days of the [...] Range Comment Apr 10, 2024 12:05 PM [facility] PT&INR Specimen Type: PLASMA Comment: Tests performed on [place] ACL TOP 350 SN [id number] (405) Criticals repeated,call ed to,read back by: ARUN SILVERIO 04/10/24 AT 12:44 PM Ordering Provider: VANESSA PATEL Report Released Date/Time: Apr 08, 2024 12:40 PM Reporting Lab: [facility] [address] [address] [address] Performing Lab: [facility] [address] [address] INR 7.3 {ratio} HH 0.9-1.1 PT 75.7 s H 9.4-12.5 Apr 10, 2024 12:05 PM [facility] P4 GLU,BUN,CREAT,LYTES,[place] Specimen Type: PLASMA Comment: , Tests performed on [employer] Craven SN:[id number] (405) Ordering Provider: Maribel MENDEZ Report Released Date/Time: Apr 07, 2024 03:31 PM Reporting Lab: [facility] [address] [facility] [address] Performing Lab: [facility] [address] [facility] [address] UREA NITROGEN 21 mg/dL 7-25 SODIUM 135 mmol/L 135-145 POTASSIUM 4.1 mmol/L 3.5-5.0 CHLORIDE 102 mmol/L 100-110 CARBON DIOXIDE 27 mmol/L 20-30 ANION GAP 6 4-16 GLUCOSE 92 mg/dL 65-100 CREATININE 0.93 mg/dL 0.50-1.50 CALCIUM 9.5 mg/dL 8.5-10.5 eGFR(CKD-EPI 2020) >90 See_Comment Apr 07, 2024 10:26 AM [facility] PT&INR Specimen Type: PLASMA Comment: Tests performed on [place] ACL TOP 350 SN [id number] (405) Ordering Provider: LOS GOMEZ Report Released Date/Time: Apr 02, 2024 03:19 PM Reporting Lab: [facility] [address] [facility] [address] Performing Lab: [facility] [address] [facility] [address] INR 3.5 {ratio} H 0.9-1.1 PT 37.5 s H 9.4-12.5 Apr 02, 2024 03:30 PM [facility] PT&INR Specimen Type: PLASMA Comment: Tests performed on [place] ACL TOP 350 SN [id number] (405) Ordering Provider: LOS GOMEZ Report Released Date/Time: Apr 02, 2024 03:17 PM Reporting Lab: [facility] [address] [facility] [address] Performing Lab: [facility] [address] [facility] [address] INR 1.2 {ratio} H 0.9-1.1 PT 12.9 s H 9.4-12.5 Apr 02, 2024 03:30 PM [facility] CBC NO DIFF Specimen Type: BLOOD No comment entered. Ordering Provider: LOS GOMEZ Report Released Date/Time: Apr 02, 2024 03:17 PM Reporting Lab: [facility] [address] [facility] [address] Performing Lab: [facility] [address] [facility] [address] WBC 6.1 10*3/uL 4.5-11.0 RBC 4.77 10*6/uL [...] 117/74 14 98 0 72 261.3 36 [facility] Apr 10, 2024 08:48 AM 96 76 142/96 16 98 0 [facility] Advance Directives: All historical and current Section Date Range: From patient's date of to the date document was created. This section includes ALL of a patient's completed or amended [place] Advance and Rescinded Directives. The entries below indicate that a directive exists for the patient, but an actual copy is not included with this document. The data comes from all [place] facilities. Date Advance Directives Provider Source May 18, 2021 ADVANCE DIRECTIVE RICHARD DAN [facility] Encounter Notes: All associated encounter notes This section contains the clinical notes associated to the Encounter. Date/Time Encounter Note(s) Provider Source Apr 10, 2024 01:12 PM NURSING OPERATIVE NOTE: LOCAL TITLE: NURSE INTRAOPERATIVE REPORT STANDARD TITLE: NURSING OPERATIVE NOTE DATE OF NOTE: APR 10, 2024@13:12 ENTRY DATE: APR 10, 2024@14:03:49 AUTHOR: KIMBERLEY BRUNER EXP COSIGNER: URGENCY: STATUS: COMPLETED SUBJECT: Case #: [id number] Operating Room: OR 1 Surgical Priority: ELECTIVE Patient in Hold: NOT ENTERED Patient in OR: APR 10, 2024 13:12 Operation Begin: APR 10, 2024 13:31 Operation End: NOT ENTERED Patient Out OR: APR 10, 2024 14:03 Major Operations Performed: Primary: CHRIS Robotic Assistance (Y/N): NO Other: CARDIOVERSION Wound Classification: CLEAN/CONTAMINATED Operation Disposition: OUTPATIENT/DISCHARGE Discharged Via: STRETCHER Primary Surgeon: STARR JHAVERI Mobile Homes Repairer: CARROLL GOLDBERG Attending Surgeon: ROSA BLANCHARD Second Assist: N/A Behavioral School Counselors: BARAK HOLGUIN Broadband Engineer Anesth: N/A OR Support Personnel: Scrubbed Circulating N/A KIMBERLEY BRUNER () Preop Mood: ANXIOUS Preop Consc: ALERT-ORIENTED Preop Skin Integ: WARM, DRY & INTACT Preop [place]: N/A --- Time Out Checklist --- Confirm Correct Patient Identity: YES Confirm Procedure To Be Performed: YES Confirm Site of the Procedure, Including Laterality: YES Confirm Valid Consent: YES, i-MED Confirm Patient Position: YES Confirm Procedure Site has been Marked Appropriately and that the Site of the Francois is Visible After Prep and Draping: YES Pertinent Medical Images Have Been Confirmed: N/A Correct Medical Implant(s) is Available: NOT APPLICABLE Availability of Special Equipment: YES Appropriate Antibiotic Prophylaxis: NOT INDICATED Appropriate Deep Vein Thrombosis Prophylaxis: NOT INDICATED Blood Availability: NOT INDICATED Checklist Comment: SCOPE # [id number] Time-Out Document Completed By: KIMBERLEY BRUNER Time-Out Completed: APR 10, 2024@13:25 Preop Surgical Site Hair Removal by: N/A Surgical Site Hair Removal Method: NO HAIR REMOVED Hair Removal Comments: NO COMMENTS ENTERED Surgery Position(s): SUPINE Placed: N/A Anesthesia Technique(s): MONITORED ANESTHESIA CARE Medications: LIDOCAINE HCL 2% VISCOUS LIQUID Possible Item Retention: YES Sponge Final Count Correct: NOT APPLICABLE Sharps Final Count Correct: NOT APPLICABLE Instrument Final Count Correct: YES Wound Sweep: YES Wound Sweep Comment: NO COMMENTS ENTERED Intra-Operative X-Ray: NO Intra-Operative X-Ray Comment: NO COMMENTS ENTERED Counter: KIMBERLEY BRUNER Counts Verified By: ROSA BLANCHARD Blood Loss: 0 ml Urine Output: Postoperative Mood: RELAXED Postoperative Consciousness: RESTING Postoperative Skin Integrity: WARM, DRY & INTACT Sequential Compression Device: NO Immediate Use Steam Sterilization Episodes: Contamination: 0 SPS Processing/OR Management Issues: 0 Emergency Case: 0 No Better Option: 0 Loaner or Short Notice Instrument: 0 Decontamination of Instruments Contaminated During the Case: 0 Nursing Care Comments: NO COMMENTS ENTERED /es/ KIMBERLEY BRUNER registered nurse Signed: 04/10/2024 14:04 KIMBERLEY BRUNER [facility]
--- OUTSIDE RECORDS SUMMARY | 2024-04-14 13:56 | XMS_ITS ---
Author Name Department of Veter[place] Organization [place] Address [address] [facility], [place] [address] Care Team Providers Care Aboriginal Liaison Officer Name Role Phone NATE BOLANOS Primary Care Provider Unavailabl e Selected Encounter This section includes the information on record at [place] for the Encounter. Date/Time Encounter Type Encounter Description Reason Pro vider Source Apr 11, 2024 10:38 AM Outpatient Encounter TELEPHONE/MEDICINE IHE Encounter Template Text not used by [place] Plan of Treatment: Future Appointments (+ 6 months) and Future Tests (+/- 45 days) The Plan of Treatment section includes future care activities for the patient from all [place] treatmentfacilities. This section includes future appointments and future orders which are active, pending or scheduled. Future Appointments This section includes appointments that were scheduled to occur 6 months from the date of the Encounter, up to a maximum of 20 appointments. The data comes from all [place] treatment facilities. Appointment Date/Time Appointment Type Appointme nt Facility Name Apr 14, 2024 07:00 AM AMBULATORY - NONE [place] [facility] Apr 15, 2024 10:45 AM AM[place]ORY [place] [facility] Apr 21, 2024 11:00 AM AMBULATORY - [place]IC[place] [facility] Jun 11, 2024 09:00 AM AMBULATORY - [place]IC[place] [facility] Jun 18, 2024 09:00 AM AMBULATORY - [place]IC[place] [facility] Jun 25, 2024 09:00 AM AMBULATORY - [place]IC[place] [facility] Jul 02, 2024 09:00 AM AMBULATORY - [place]IC[place] [facility] Jul 09, 2024 09:00 AM AMBULATORY - [place]IC[place] [facility] Jul 16, 2024 09:00 AM AMBULATORY - [place]IC[place] [facility] Jul 23, 2024 09:00 AM AMBULATORY - [place]IC[place] [facility] Jul 30, 2024 09:00 AM AMBULATORY - [place]ICINE [place] [facility] Aug 06, 2024 09:00 AM AMBULATORY - MEDICINE [place] [facility] Aug 13, 2024 09:00 AM AMBULATORY - MEDICINE [place] [facility] 2024 09:00 AM AMBULATORY - MEDICINE [place] [facility] Aug 27, 2024 09:00 AM AMBULATORY - MEDICINE [place] [facility] Sep 03, 2024 09:00 AM AMBULATORY - MEDICINE [place] [facility] Sep 10, 2024 09:00 AM AMBULATORY - MEDICINE [place] [facility] Oct 01, 2024 09:00 AM AMBULATORY - MEDICINE [place] [facility] Oct 08, 2024 09:00 AM AMBULATORY - MEDICINE [place] [facility] Active, Pending, and Scheduled Orders This section includes a listing of several types of active, pending, and scheduled orders, including clinic medications orders, diagnostic test orders, procedure orders and consult orders; where the start date of the order is 45 days before the date of the Encounter or 45 days after the date of theEncounter. The data comes from all [place] treatment facilities. Test Date/Time Test Type Test Details Facility Name Apr 11, 2024 08:29 AM Consult Order [facility]ITY [facility]ARE-PACT CLINICAL PHARMACY (ANTI-COAG) Cons Photo Retoucher's Choice [facility] Apr 14, 2024 12:00 AM Laboratory - Chemi stry Order CBC NO DIFF BLOOD(LAV-EDTA-WB) SP [facility] Apr 14, 2024 12:00 AM Laboratory - Chemi stry Order PT&INR BLOOD(BLUE-NA CIT) PLASMA SP [facility] Lab Results: +/- 30 days of [...] 2024 12:05 PM [facility] PT&INR Specimen Type: PLASMA Comment: Tests performed on [place] ACL TOP 350 SN [id number] (405) Criticals repeated,call ed to,read back by: ARUN SILVERIO 04/10/24 AT 12:44 PM Ordering Provider: VANESSA PATEL Report Released Date/Time: Apr 08, 2024 12:40 PM Reporting Lab: [facility] [address] [facility] [address] Performing Lab: [facility] [address] [facility] [address] INR 7.3 {ratio} HH 0.9-1.1 PT 75.7 s H 9.4-12.5 Apr 10, 2024 12:05 PM [facility] P4 GLU,BUN,CREAT,LYTES,[place] Specimen Type: PLASMA Comment: , Tests performed on [employer] Craven SN:[id number] ([id number]) Ordering Provider: Maribel MENDEZ Report Released Date/Time: Apr 07, 2024 03:31 PM Reporting Lab: [facility] [address] [facility] [address] [facility]forming [facility]: [facility] [address] [facility] [address] UREA NITROGEN 21 mg/dL 7-25 SODIUM 135 mmol/L 135-145 POTASSIUM 4.1 mmol/L 3.5-5.0 CHLORIDE 102 mmol/L 100-110 CARBON DIOXIDE 27 mmol/L 20-30 ANION GAP 6 4-16 GLUCOSE 92 mg/dL 65-100 CREATININE 0.93 mg/dL 0.50-1.50 CALCIUM 9.5 mg/dL 8.5-10.5 eGFR(CKD-EPI 2020) >90 See_Comment Apr 07, 2024 10:26 AM [facility] PT&INR Specimen Type: PLASMA Comment: Tests performed on IL ACL TOP 350 SN [id number] (575) Ordering Provider: LOS GOMEZ Report Released Date/Time: Apr 02, 2024 03:19 PM Reporting Lab: [facility] [address] [facility] [address] Performing Lab: [facility] [address] [facility] [address] INR 3.5 {ratio} H 0.9-1.1 PT 37.5 s H 9.4-12.5 Apr 02, 2024 03:30 PM [facility] CBC NO DIFF Specimen Type: BLOOD No comment entered. Ordering Provider: LOS GOMEZ Report Released Date/Time: Apr 02, 2024 03:17 PM Reporting Lab: [facility] [address] [facility] [facility] [address] Performing Lab: [facility] [address] [facility] [address] WBC 6.1 10*3/uL 4.5-11.0 RBC 4.77 10*6/uL 4.23-5.66 HGB 15.6 g/dL 12.8-17 HEMATOCRIT 44.9 39.2-50.4 MCV 94.1 fL 82-99 MCH 32.7 pg H 26.2-32.6 MCHC 34.7 g/dL 30.8-35.1 PLT 257 10*3/uL 140-360 MPV 8.9 fL L 9.2-12.4 RDW 14.1 12.0-16.0 Apr 02, 2024 03:30 PM [facility] PT&INR Specimen Type: PLASMA Comment: Tests performed on IL ACL TOP 350 SN [id number] (329) Ordering Provider: LOS GOMEZ Report Released Date/Time: Apr 02, 2024 03:17 PM Reporting Lab: [facility] [address] [facility] [address] Performing Lab: [facility] [address] [facility] [address] INR 1.2 {ratio} H 0.9-1.1 PT 12.9 s H 9.4-12.5 Advance Directives: All historical and current Section Date Range: From patient's date of to the date document was created. This section includes ALL of a patient's completed or amended [place] Advance and Rescinded Directives. The entries below indicate that a directive exists for the patient, but an actual copy is not included with this document. The data comes from all [place] facilities. Date Advance Directives Provider Source May 18, 2021 ADVANCE DIRECTIVE RICHARD DAN ERAN BOWEN [facility] Encounter Notes: All associated encounter notes This section contains the clinical notes associated to the Encounter. Date/Time Encounter Note(s) Provider Source Apr 11, 2024 10:40 AM TELEPHONE ENCOUNTE R NOTE: LOCAL TITLE: POST-OP TELEPHONE NOTE STANDARD TITLE: TELEPHONE ENCOUNTER NOTE DATE OF NOTE: APR 11, 2024@10:40 ENTRY DATE: APR 11, 2024@10:40:36 AUTHOR: ELIZABETH CARLIN EXP COSIGNER: URGENCY: STATUS: COMPLETED Cell Date of Procedure:04/10/24 Procedure:cardioversion Message was left for patient No Provider notified regarding patient condition? No Comment: Does the patient have procedural pain? No IV Site Pain,drainage,redness or swelling? No Comments: Cardio-Pulmonary Chest Pain No Shortness of breath or difficulty breathing No Coughing,phlegm/blood in sputum No Comment: Gastrointestinal Tolerating regular diet Yes Nausea or vomiting No Bowel movement Yes Pain,bleeding,diarrhea No Comment: Genitourinary Voiding Yes Carrillo Catheter in situ No Description of urine: clear yellow no other questions or concerns at this time, number and extension was left for if questions or concerns come up in the near future /es/ ELIZABETH CARLIN RN Signed: 04/11/2024 10:45 ELIZABETH CARLIN [facility]
--- OUTSIDE RECORDS SUMMARY | 2024-04-14 13:56 | XMS_ITS | Encounter Summary ---
Author Name [facility] [facility] [place] Organization [facility] [place] Address [address] [place] [address] Care Team Providers Care Family Practice Physician Assistant Name Role Phone NATE BOLANOS Primary Care Provider Unavailabl e Selected Encounter This section includes the information on record at [place] for the Encounter. Date/Time Encounter Type Encounter Description Reason Provider Source Apr 10, 2024 03:45 PM Outpatient Encounter ADMIN PAT ACTIVTIES (MASNONCT) MICHI VAZQUEZ Encounter Template Text not used by [place] Plan of Treatment: Future Appointments (+ 6 months) and Future Tests (+/- 45 days) The Plan of Treatment section includes future care activities for the patient from all [place] treatmentfacilities. This section includes future appointments and future orders which are active, pending or scheduled. Future Appointments This section includes appointments that were scheduled to occur 6 months from the date of the Encounter, up to a maximum of 20 appointments. The data comes from all [place] treatment facilities. Appointment Date/Time Appointment Type Appointme nt Facility Name Apr 14, 2024 07:00 AM AMBULATORY - NONE [facility] Apr 15, 2024 10:45 AM AMBULATORY - MEDICINE AZALEA Cruz [facility] Apr 21, 2024 11:00 AM AMBULATORY - MEDICINE AZALEA Cruz [facility] Jun 11, 2024 09:00 AM [facility] [place] [facility] Jun 18, 2024 09:00 AM [facility] [place] [facility] Jun 25, 2024 09:00 AM [facility] [place] [facility] Jul 02, 2024 09:00 AM [facility] [place] Jul 09, 2024 09:00 AM [facility] Jul 16, 2024 09:00 AM [facility] [place] Jul 23, 2024 09:00 AM [facility] [place] [facility] Jul 30, 2024 09:00 AM [facility] [place] [facility] Aug 06, 2024 09:00 AM [facility] [place] [facility] Aug 13, 2024 09:00 AM [facility]IC[facility] [place] 2024 09:00 AM [facility] [place] Aug 27, 2024 09:00 AM [facility] [place] [place] [facility] Sep 03, 2024 09:00 AM [facility] [place] [facility] Sep 10, 2024 09:00 AM [facility] [place] [facility] Oct 01, 2024 09:00 AM [facility] [place] [facility] Oct 08, 2024 09:00 AM [facility] [place] [facility] Active, Pending, and Scheduled Orders This section includes a listing of several types of active, pending, and scheduled orders, including clinic medications orders, diagnostic test orders, procedure orders and consult orders; where the start date of the order is 45 days before the date of the Encounter or 45 days after the date of theEncounter. The data comes from all [place] treatment facilities. Test Date/Time Test Type Test Details Facility Name Apr 11, 2024 08:29 AM Consult Order [facility] (ANTI-COAG) Cons Gizzard Skin Remover's Choice [facility] Apr 14, 2024 12:00 AM Laboratory - Chemi stry Order CBC NO DIFF BLOOD(LAV-EDTA-WB) SP [facility] Apr 14, 2024 12:00 AM Laboratory - Chemi stry Order PT&INR BLOOD(BLUE-NA CIT) PLASMA SP [facility] Lab Results: +/- 30 [...] Range Comment Apr 10, 2024 12:05 PM [facility] PT&INR Specimen Type: PLASMA Comment: Tests performed on Sunrun ACL TOP 350 SN [id number] (405) Criticals repeated,call ed to,read back by: ARUN SILVERIO 04/10/24 AT 12:44 PM Ordering Provider: VANESSA PATEL Report Released Date/Time: Apr 08, 2024 12:40 PM Reporting Lab: [facility] [address] [address] Performing Lab: [facility] [address] [address] INR 7.3 {ratio} HH 0.9-1.1 PT 75.7 s H 9.4-12.5 Apr 10, 2024 12:05 PM [facility] P4 GLU,BUN,CREAT,LYTES,CA Specimen Type: PLASMA Comment: , Tests performed on Elation[employer]R Craven SN:[id number] (405) Ordering Provider: Maribel MENDEZ Report Released Date/Time: Apr 07, 2024 03:31 PM Reporting Lab: [facility] [address] [address] Performing Lab: [facility] [address] [address] UREA NITROGEN 21 mg/dL 7-25 SODIUM 135 mmol/L 135-145 POTASSIUM 4.1 mmol/L 3.5-5.0 CHLORIDE 102 mmol/L 100-110 CARBON DIOXIDE 27 mmol/L 20-30 ANION GAP 6 4-16 GLUCOSE 92 mg/dL 65-100 CREATININE 0.93 mg/dL 0.50-1.50 CALCIUM 9.5 mg/dL 8.5-10.5 eGFR(CKD-EPI 2020) >90 See_Comment Apr 07, 2024 10:26 AM [facility] PT&INR Specimen Type: PLASMA Comment: Tests performed on IL ACL TOP 350 SN [id number] (405) Ordering Provider: LOS GOMEZ Report Released Date/Time: Apr 02, 2024 03:19 PM Reporting Lab: [facility] [address] [address] Performing Lab: [facility] [address] [address] INR 3.5 {ratio} H 0.9-1.1 PT 37.5 s H 9.4-12.5 Apr 02, 2024 03:30 PM [facility] PT&INR Specimen Type: PLASMA Comment: Tests performed on IL ACL TOP 350 SN [id number] (405) Ordering Provider: LOS GOMEZ Report Released Date/Time: Apr 02, 2024 03:17 PM Reporting Lab: [facility] [address] [address] Performing Lab: [facility] [address] [address] INR 1.2 {ratio} H 0.9-1.1 PT 12.9 s H 9.4-12.5 Apr 02, 2024 03:30 PM [facility] CBC NO DIFF Specimen Type: BLOOD No comment entered. Ordering Provider: LOS GOMEZ Report Released Date/Time: Apr 02, 2024 03:17 PM Reporting Lab: [facility] [address] [address] Performing Lab: [facility] [address] [address] WBC 6.1 10*3/uL 4.5-11.0 RBC 4.77 10*6/uL [...] 117/74 14 98 0 72 261.3 36 [facility] Apr 10, 2024 08:48 AM 96 76 142/96 16 98 0 [facility] Advance Directives: All historical and current Section Date Range: From patient's date of to the date document was created. This section includes ALL of a patient's completed or amended [place] Advance and Rescinded Directives. The entries below indicate that a directive exists for the patient, but an actual copy is not included with this document. The data comes from all [place] facilities. Date Advance Directives Provider Source May 18, 2021 ADVANCE DIRECTIVE RICHARD DAN MARY [facility] Encounter Notes: All associated encounter notes This section contains the clinical notes associated to the Encounter. Date/Time Encounter Note(s) Provider Source Apr 10, 2024 03:45 PM ANESTHESIOLOGY NOT E: LOCAL TITLE: [facility] PACU NOTE STANDARD TITLE: ANESTHESIOLOGY NOTE DATE OF NOTE: APR 10, 2024@15:45 ENTRY DATE: APR 10, 2024@15:45:54 AUTHOR: MICHI VAZQUEZ COSIGNER: URGENCY: STATUS: COMPLETED Patient: BISMARK HAYWARD SSN: [id number] Date of Operation: 04/10/2024 Surgery Start Time: 04/10/2024 13:31 Surgery End Time: 04/10/2024 13:58 Procedure Start Time: Procedure End Time: Event: Patient Arrives in PACU 04/10/2024 14:08 Event: Patient Leaves PACU 04/10/2024 15:09 ASA Number: [id number] Procedure: CHRIS CARDIOVERSION ELECTRIC EXT PACU Fluids: PACU Drugs: Propofol Infusion: 432.573 mg Staff: --------- ZAK SANABRIA, SURGEON ZAK SANABRIA, ATTMelodie SURGEON BARAK HOLGUIN PRIN. ANES. BARAK HOLGUIN ANES. SUPER. KAHN, ADAM, ANES. SUPER. MICHI VAZQUEZ, PACU Nurse Resources: Start of Sedation End of Sedation Disposition note: Adverse Events: Discharge medications: Non-Pharmacological pain management effectiveness: Pain intervention: /garrick/ MICHI VAZQUEZ Signed: 04/10/2024 15:45 MICHI VAZQUEZ [facility]
--- OUTSIDE RECORDS SUMMARY | 2024-04-14 13:56 | XMS_ITS | Encounter Summary ---
Author Name [facility] [place] [facility] [place] Organization [facility] [place] Address [address] [place] [address] Care Team Providers Care Scrap Preparation Supervisor Name Role Phone NATE BOLANOS Primary Care Provider Unavailabl e Selected Encounter This section includes the information on record at [place] for the Encounter. Date/Time Encounter Type Encounter Description Reason Provider Source Apr 11, 2024 08:16 AM MTMS BY JERRI DELGADO 15 MIN TELEPHONE/ANCILL INDIGO ICD-10-CM Z79.01 FDC (current) use of anticoagulants CON SILVERIO Cruz Encounter Template Text not used by [place] Assessments - Encounter Diagnoses This section includes the primary and secondary diagnoses documented for the Encounter. 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 The data comes from all [place] treatment facilities. Appointment Date/Time Appointment Type Appointme nt Facility Name Apr 14, 2024 07:00 AM AMBULATORY - NONE [facility] [facility] Apr 15, 2024 10:45 AM [place] [facility] Apr 21, 2024 11:00 AM [place] [facility] Jun 11, 2024 09:00 AM [place] [place] [facility] Jun 18, 2024 09:00 AM [place] [facility] Jun 25, 2024 09:00 AM [place] [place] [facility] Jul 02, 2024 09:00 AM [place] [facility] Jul 09, 2024 09:00 AM [place] [facility] Jul 16, 2024 09:00 AM [place] [facility] Jul 23, 2024 09:00 AM [place] [place] [facility] Jul 30, 2024 09:00 AM [place] [facility] Aug 06, 2024 09:00 AM [place] [facility] Aug 13, 2024 09:00 AM AM[place]IC[place] [facility] 2024 09:00 AM [place] [facility] Aug 27, 2024 09:00 AM AM[place]IC[place] [facility] Sep 03, 2024 09:00 AM AM[place]IC[place] [facility] Sep 10, 2024 09:00 AM AM[place] - [place]IC[place] [facility] Oct 01, 2024 09:00 AM AM[place]IC[place] [facility] Oct 08, 2024 09:00 AM AMB[place]ATORY - [place]ICINE [place] [facility] Active, Pending, and Scheduled Orders This section includes a listing of several types of active, pending, and scheduled orders, including clinic medications orders, diagnostic test orders, procedure orders and consult orders; where the start date of the order is 45 days before the date of the Encounter or 45 days after the date of theEncounter. The data comes from all [place] treatment facilities. Test Date/Time Test Type Test Details Facility Name Apr 11, 2024 08:29 AM Consult Order [facility] (ANTI-COAG) Cons Automotive Fuel Injection Servicer's Choice [facility] Apr 14, 2024 12:00 AM Laboratory - Chemi stry Order CBC NO DIFF BLOOD(LAV-EDTA-WB) SP [facility] Apr 14, 2024 12:00 AM Laboratory - Chemi stry Order PT&INR BLOOD(BLUE-NA CIT) PLASMA SP [facility] Lab Results: +/- 30 days of the encounter This section includes the Chemistry and Hematology Lab Results on record with [place] for the patient. Radiology Reports and Pathology Reports are provided separately, in subsequent sections. Lab Results This section contains the Chemistry/Hematology Results that were resulted 30 days before or 30 daysafter the date of the Encounter. Date/Time Source Result Type Result - Unit Interpretation Reference Range Comment Apr 10, 2024 12:05 PM [facility] PT&INR Specimen Type: PLASMA Comment: Tests performed on ScreenHits ACL TOP 350 SN [id number] (405) Criticals repeated,call ed to,read back by: ARUN SILVERIO 04/10/24 AT 12:44 PM Ordering Provider: VANESSA PATEL Report Released Date/Time: Apr 08, 2024 12:40 PM Reporting Lab: [facility] [address] [address] Performing Lab: [facility] [address] [address] INR 7.3 {ratio} HH 0.9-1.1 PT 75.7 s H 9.4-12.5 Apr 10, 2024 12:05 PM [facility] P4 GLU,BUN,CREAT,LYTES,CA Specimen Type: PLASMA Comment: , Tests performed on XAPP[employer] Craven SN:[id number] (405) Ordering Provider: Maribel MENDEZ Report Released Date/Time: Apr 07, 2024 03:31 PM Reporting Lab: [facility] [address] [facility] [address] Performing Lab: [facility] [address] [facility] [address] UREA NITROGEN 21 mg/dL 7-25 SODIUM 135 mmol/L 135-145 POTASSIUM 4.1 mmol/L 3.5-5.0 CHLORIDE 102 mmol/L 100-110 CARBON DIOXIDE 27 mmol/L 20-30 ANION GAP 6 4-16 GLUCOSE 92 mg/dL 65-100 CREATININE 0.93 mg/dL 0.50-1.50 CALCIUM 9.5 mg/dL 8.5-10.5 eGFR(CKD-EPI 2020) >90 See_Comment Apr 07, 2024 10:26 AM [facility] PT&INR Specimen Type: PLASMA Comment: Tests performed on IL ACL TOP 350 SN [id number] (405) Ordering Provider: LOS GOMEZ Report Released Date/Time: Apr 02, 2024 03:19 PM Reporting Lab: [facility] [address] [facility] [address] Performing Lab: [facility] [address] [facility] [address] INR 3.5 {ratio} H 0.9-1.1 PT 37.5 s H 9.4-12.5 Apr 02, 2024 03:30 PM [facility] PT&INR Specimen Type: PLASMA Comment: Tests performed on IL ACL TOP 350 SN [id number] (405) Ordering Provider: LOS GOMEZ Report Released Date/Time: Apr 02, 2024 03:17 PM Reporting Lab: [facility] [address] [facility] [address] Performing Lab: [facility] [address] [facility] [facility] [address] INR 1.2 {ratio} H 0.9-1.1 PT 12.9 s H 9.4-12.5 Apr 02, 2024 03:30 PM [facility] CBC NO DIFF Specimen Type: BLOOD No comment entered. Ordering Provider: LOS GOMEZ Report Released Date/Time: Apr 02, 2024 03:17 PM Reporting Lab: [facility] [address] [facility] [address] Performing Lab: [facility] [address] [facility] [facility] [address] WBC 6.1 10*3/uL 4.5-11.0 RBC 4.77 10*6/uL [...] ALL of a patient's completed or amended [place] Advance and Rescinded Directives. The entries below indicate that a directive exists for the patient, but an actual copy is not included with this document. The data comes from all [place] facilities. Date Advance Directives Provider Source May 18, 2021 ADVANCE DIRECTIVE [facility] Encounter Notes: All associated encounter notes This section contains the clinical notes associated to the Encounter. Date/Time Encounter Note(s) Provider Source Apr 11, 2024 08:16 AM E & M OF ANTICOAGULATION NOTE: LOCAL TITLE: Anticoagulation Clinic/Supervisor Publications Production STANDARD TITLE: [facility] M OF ANTICOAGULATION NOTE DATE OF NOTE: APR 11, 2024@08:16 ENTRY DATE: APR 11, 2024@08:16:28 AUTHOR: ARUN SILVERIO COSIGNER: URGENCY: STATUS: COMPLETED Anticoagulation Clinic/Supervisor Publications Production Has ADDENDA MR. BISMARK HAYWARD [address] [place] [id number] Purpose of visit: Follow-up of anticoagulation Time spent with patient during this visit: 15 minutes 15 additional minutes spent coordinating CC lab Subjective/Objective information: Active Outpatient Medications (excluding Supplies): Active Outpatient Medications Status 1) CHLORHEXIDINE GLUCONATE 0.12% MOUTHWASH RINSE 1 ACTIVE CAPFUL (15ML) BY MOUTH TWICE A DAY 2) CHOLECALCIF 25MCG (D3-1,000UNIT) TAB TAKE ONE TABLET ACTIVE BY MOUTH ONCE DAILY 3) DILTIAZEM (EQV-TIAZAC) 360MG 24HR CAP TAKE ONE ACTIVE CAPSULE BY MOUTH EVERY DAY FOR HEART RATE/BLOOD PRESSURE 4) FAMOTIDINE 20MG TAB TAKE ONE TABLET BY MOUTH TWICE A ACTIVE DAY FOR STOMACH ACID 5) HYDROCHLOROTHIAZIDE 12.5MG TAB TAKE ONE TABLET BY ACTIVE MOUTH EVERY MORNING TO REMOVE FLUID/CONTROL BLOOD PRESSURE 6) LAMOTRIGINE 100MG TAB TAKE THREE TABLETS BY MOUTH ACTIVE EVERY MORNING AND TAKE FOUR TABLETS EVERY EVENING ### 7) LEVOTHYROXINE NA (SYNTHROID) 125MCG TAB TAKE TWO ACTIVE TABLETS BY MOUTH ONCE EVERY MORNING FOR HYPOTHYROIDISM HALF-HOUR BEFORE FOOD INCREASE IN DOSE 8) LISINOPRIL 10MG TAB TAKE ONE TABLET BY MOUTH ONCE ACTIVE EVERY EVENING FOR HIGH BLOOD PRESSURE 9) MELATONIN 5MG CAP/TAB TAKE ONE CAP/TAB BY MOUTH EVERY ACTIVE DAY FOR SLEEP 10) METOPROLOL SUCCINATE 25MG SA TAB TAKE ONE TABLET BY ACTIVE MOUTH TWICE A DAY FOR ATRIAL FIBRILLATION FOR RATE CONTROL 11) PHENYTOIN NA (DILANTIN) 100MG SA CAP TAKE ONE CAPSULE ACTIVE BY MOUTH EVERY MORNING AND TAKE TWO CAPSULES EVERY EVENING TO PREVENT SEIZURES NEEDS DILANTIN BRAND 12) SILDENAFIL CITRATE 100MG TAB TAKE ONE TABLET BY MOUTH ACTIVE NEEDED MAX USE ONCE IN 24 HOUR PERIOD 13) TRAZODONE HCL 50MG TAB TAKE ONE TABLET BY MOUTH AT ACTIVE BEDTIME FOR INSOMNIA MAY TAKE ONE ADDITIONAL TABLET NEEDED 14) TRIAMCINOLONE ACETONIDE 0.1% OINT APPLY SMALL AMOUNT ACTIVE TOPICALLY TWICE DAILY NEEDED FOR DERMATITIS 15) WARFARIN NA ([place]) 5MG TAB TAKE ONE TABLET BY ACTIVE MOUTH ONCE DAILY TO HELP PREVENT BLOOD CLOTS (ANTICOAGULATION) No Active Remote Medications for this patient [ ] Medication reconciliation completed, any differences are listed below: Factors affecting anticoagulation: Missed doses none Activity change none Medication change none Diet/Vitamin K change none Alcohol/Tobacco change none Acute illness none Side effects/bleeding complications: bruising denies gingival bleeding denies nosebleeds denies hematuria denies blood in stools denies other: denies Falls/injuries denies Tests/Procedures possible future RLE GSV stripping and stab phlebectomies per vascular note Other issues: none reported Indication for anticoagulation: Atrial Fibrillation DCCV 04/10/2024 INR Goal: 2-3 Anticoagulation initiated: 04/02/24 Duration of anticoagulation: TBD per cardio Warfarin tablet strength: 5mg Time of administration: 9 AM Bleeding hx: none noted Fall hx: none noted Preferred Contact: (cell), ok Not eligible for DOAC d/t Phenytoin DDI Drug-Drug Interactions w/ warfarin: - Phenytoin -> may enhance or diminish the effects of warfarin. Also, warfarin may increase the serum concentration of phenytoin - Ibuprofen & Levothyroxine -> enhances effects of warfarin - Trazodone -> decreases effects of warfarin Baseline Lab Results: HCT: 44.9 (04/02/24 15:30) HGB: 15.6 (04/02/24 15:30) PLT: 257 (04/02/24 15:30) INR Results: Patient reported dose: TWD: INR: 1.2 (04/02/24 15:30) 5mg daily started on 04/03/24 INR: 3.5 (04/07/24 10:26) 5mg daily started on 04/03/24 25mg INR: 7.3 (04/10/24 12:05) 5mg x5d, 2.5mg x 2d 30mg Assessment: Critically supratherapeutic anticoagulation. Mcclellan denies any current s/sx of bleeding. Stressed importance of close monitoring and to report or be evaluated should any occur. voiced understanding. Mcclellan denies thrombotic complications. reports doing well, no changes reported. Denies illness/changes in activity/significant changes in diet etc. Possible that the interaction with phenytoin could be contributing. took warfarin dose yesterday AM. did decrease dosing as instructed on 04/07. s/p DCCV yesterday, will need to try to prevent INR from becoming subtherapeutic. Will follow VISN 1 algorithm recommendations to hold warfarin and restart at lower dose when INR is therapeutic. Appropriate to hold x 3 days with current INR level then recheck INR to determine further management. Mcclellan voiced understanding of plan. If lab done at [facility] on Sunday, likely will not get result until after clinic hours later in evening. Mcclellan takes warfarin dosing in AM. stated it is too far for him to drive to [facility] for just lab. Given need for quick turnaround time on INR result (in case resuming Sunday is appropriate), entered CC lab consult for Sunday AM at [facility] is close for and has a quick turnaround lab time. T/c to [facility] lab staff to inquire about lab turnaround time. If order requested as stat, typically result within an hour otherwise routine order results are within 4-6 hours. Requested to be processed as stat. CC consult approved and is all set per CC MSA. contacted by CC MSA and will go to OSH early AM Sunday for lab. From mail caller note yesterday: Supratherapeutic INR between 4.5 and 10 without clinically significant bleeding. Patient instructed to hold coumadin x 2 days. Will notify Anticoagulation Clinic for f/u INR early next week. Plan: HOLD warfarin until instructed to resume by [facility] Warfarin dose: TBD after 04/14 INR check Future follow-up: Return to clinic with PT/INR & CBC 04/14 @ [facility] Patient education: reviewed s/sx bleeding/thrombosis and ER precautions [X] TC to patient/spouse/caregiver who was able to verbalize understanding of above instructions. [ ] Voice mail left for patient with instructions [ ] Written instructions mailed to patient [ ] Rx ordered [ ] Rx/Lab orders faxed to: /ayla SILVERIO PHARMD PHARMACIST Signed: 04/11/2024 11:59 04/14/2024 ADDENDUM STATUS: COMPLETED Vascular plan to schedule a RLE GSV ligation once is cleared by cardiology to come off anticoagulation. /ayla SILVERIO PHARMD PHARMACIST Signed: 04/14/2024 09:36 ARUN SILVERIO [facility]
--- OUTSIDE RECORDS SUMMARY | 2024-04-14 13:56 | XMS_ITS ---
Author Name [facility] Organization [facility] [place] Address [address] [place] [address] Care Team Providers Care Balloon Sander Name Role Phone LUIS MIGUELNATE Primary [facility] Selected Encounter This section includes the information on record at [place] for the Encounter. Date/Time Encounter Type Encounter Description Reason Provider Source Apr 10, 2024 03:09 PM POSTOP FOLLOW-UP VISIT ANESTHESIA PRE/POST-OP CONSULT ICD-10-CM Z48.89 Encounter for other specified surgical aftercare BARAK HOLGUIN Encounter Template Text not used by [place] Assessments - Encounter Diagnoses This section includes the primary and secondary diagnoses documented for the Encounter. Date/Time Primary/Secondary Diagnosis Diagnosis Name Provider Source Apr 10, 2024 03:10 PM PRIMARY Encounter for other specified surgical aftercare BARAK HOLGUIN [facility] Apr 10, 2024 03:10 PM SECONDARY Unspecified atrial fibrillation BARAK HOLGUIN [facility] Plan of Treatment: Future Appointments (+ 6 [...] 20 appointments. The data comes from all [place] treatment facilities. Appointment Date/Time Appointment Type Appointme nt Facility Name Apr 14, 2024 07:00 AM AMBULATORY - NONE [place] [facility] Apr 15, 2024 10:45 AM [place] [facility] Apr 21, 2024 11:00 AM [place] [facility] Jun 11, 2024 09:00 AM [place] [facility] Jun 18, 2024 09:00 AM [place] [facility] Jun 25, 2024 09:00 AM [place] [facility] Jul 02, 2024 09:00 AM [place] [facility] Jul 09, 2024 09:00 AM [place] [facility] Jul 16, 2024 09:00 AM [place] [facility] Jul 23, 2024 09:00 AM [place] [facility] Jul 30, 2024 09:00 AM [place] [facility] Aug 06, 2024 09:00 AM [place] [facility] Aug 13, 2024 09:00 AM [place] [facility] 2024 09:00 AM [place] [facility] Aug 27, 2024 09:00 AM [place] [facility] Sep 03, 2024 09:00 AM [place] [facility] Sep 10, 2024 09:00 AM [place] [facility] Oct 01, 2024 09:00 AM [place] [facility] Oct 08, 2024 09:00 AM [place]ORY [place]IC[place] [facility] Active, Pending, and Scheduled Orders This section includes a listing of several types of active, pending, and scheduled orders, including clinic medications orders, diagnostic test orders, procedure orders and consult orders; where the start date of the order is 45 days before the date of the Encounter or 45 days after the date of theEncounter. The data comes from all [place] treatment facilities. Test Date/Time Test Type Test Details Facility Name Apr 11, 2024 08:29 AM Consult Order [facility] (ANT[facility]) Cons Hydrometeorological Technician's Choice [facility] Apr 14, [...] Range Comment Apr 10, 2024 12:05 PM [facility] PT&INR Specimen Type: PLASMA Comment: Tests performed on MEDOP TOP 350 SN [id number] ([id number]) Criticals repeated,call ed to,read back by: ARUN SILVERIO 04/10/24 AT 12:44 PM Ordering Provider: VANESSA PATEL Report Released Date/Time: Apr 08, 2024 12:40 PM Reporting Lab: [facility] [address] [facility] [address] Performing Lab: [facility] [address] [facility] [address] INR 7.3 {ratio} HH 0.9-1.1 PT 75.7 s H 9.4-12.5 Apr 10, 2024 12:05 PM [facility] P4 GLU,BUN,CREAT,LYTES,CA Specimen Type: PLASMA Comment: , Tests performed on [employer] Craven SN:[id number] ([id number]) Ordering Provider: Maribel MENDEZ Report Released Date/Time: Apr 07, 2024 03:31 PM Reporting Lab: [facility] [address] [facility] [address] Performing Lab: [facility] [address] [facility] [address] UREA NITROGEN 21 mg/dL 7-25 SODIUM 135 mmol/L 135-145 POTASSIUM 4.1 mmol/L 3.5-5.0 CHLORIDE 102 mmol/L 100-110 CARBON DIOXIDE 27 mmol/L 20-30 ANION GAP 6 4-16 GLUCOSE 92 mg/dL 65-100 CREATININE 0.93 mg/dL 0.50-1.50 CALCIUM 9.5 mg/dL 8.5-10.5 eGFR(CKD-EPI 2020) >90 See_Comment Apr 07, 2024 10:26 AM [place] [facility] PT&INR Specimen Type: PLASMA Comment: Tests performed on [employer] ACL TOP 350 SN [id number] (405) Ordering Provider: LOS GOMEZ Report Released Date/Time: Apr 02, 2024 03:19 PM Reporting [facility] [address] [facility] [address] Performing Lab: [place] [facility] [address] [facility] [address] INR 3.5 {ratio} H 0.9-1.1 PT 37.5 s H 9.4-12.5 Apr 02, 2024 03:30 PM [facility] PT&INR Specimen Type: PLASMA Comment: Tests performed on IL ACL TOP 350 SN [id number] (405) Ordering Provider: LOS GOMEZ Report Released Date/Time: Apr 02, 2024 03:17 PM Reporting [facility] [address] [facility] [address] [facility]: [facility] [address] [facility] [address] INR 1.2 {ratio} H 0.9-1.1 PT 12.9 s H 9.4-12.5 Apr 02, 2024 03:30 PM [facility] CBC NO DIFF Specimen Type: BLOOD No comment entered. Ordering Provider: LOS GOMEZ Report Released Date/Time: Apr 02, 2024 03:17 PM Reporting Lab: [facility] [address] [facility] [address] Performing Lab: [facility] [address] [facility] [address] WBC 6.1 10*3/uL 4.5-11.0 RBC 4.77 10*6/uL [...] ALL of a patient's completed or amended [place] Advance and Rescinded Directives. The entries below indicate that a directive exists for the patient, but an actual copy is not included with this document. The data comes from all [place] facilities. Date Advance Directives Provider Source May 18, 2021 ADVANCE DIRECTIVE RICHARD DAN [facility] Encounter Notes: All associated encounter notes This section contains the clinical notes associated to the Encounter. Date/Time Encounter Note(s) Provider Source Apr 10, 2024 03:09 PM ANESTHESIOLOGY POS T OPERATIVE E & M NOTE: LOCAL TITLE: Post OP Note/Anesthesia STANDARD TITLE: ANESTHESIOLOGY POST OPERATIVE E & M NOTE DATE OF NOTE: APR 10, 2024@15:09 ENTRY DATE: APR 10, 2024@15:09:49 AUTHOR: BARAK HOLGUIN EXP COSIGNER: URGENCY: STATUS: COMPLETED Post-anesthesia evaluation: Vitals: For post-op vital, see [facility] PACU note record. Patient was evaluated post-anesthesia after phase 2 recovery was met. Recall: No Adequate pain control: Yes PONV: No Postoperative hydration: Adequate Satisfied with anesthetic care: Yes Concerns: No Questions (if any) answered: Yes /garrick/ BARAK HOLGUIN Anesthesiology Signed: 04/10/2024 15:10 BARAK HOLGUIN [facility]
--- OUTSIDE RECORDS SUMMARY | 2024-04-14 13:57 | XMS_ITS | Encounter Summary ---
Author Name [facility] [place] Organization [place] Address [address] [place] [address] Care Team Providers Care Bell Person Name Role Phone NATE BOLANOS Primary Care Provider Unavailabl e Selected Encounter This section includes the information on record at [place] for the Encounter. Date/Time Encounter Type Encounter Description Reason Provider Source Apr 04, 2024 07:13 AM [facility] BY JERRI DELGADO 15 MIN CLINICAL PHARMACY ICD-10-CM I48.91 Unspecified atrial fibrillation VANESSA PATEL Encounter Template Text not used by [place] Assessments - Encounter Diagnoses This section includes the primary and secondary diagnoses documented for the Encounter. Date/Time Primary/Secondary Diagnosis Diagnosis Name Provider Source Apr 04, 2024 07:36 AM PRIMARY Unspecified atrial fibrillation VANESSA PATEL [facility] Plan of Treatment: Future Appointments (+ 6 months) and Future Tests (+/- 45 days) The Plan of Treatment section includes future care activities for the patient from all [place] treatmentfacilities. This section includes future appointments and future orders which are active, pending or scheduled. Future Appointments This section includes appointments that were scheduled to occur 6 months from the date of the Encounter, up to a maximum of 20 appointments. The data comes from all [place] treatment facilities. Appointment Date/Time Appointment Type Appointme nt Facility Name Apr 07, 2024 09:45 AM AMBULATORY - NONE [facility] Apr 08, 2024 11:15 AM [place] [facility] Apr 09, 2024 10:30 AM [place]ORY [place] [facility] Apr 10, 2024 09:15 AM AMB[place]ORY - [place] [facility] Apr 10, 2024 09:30 AM AM[place]ATORY - NONE [place] [facility] Apr 10, 2024 12:00 PM AMBULATORY - [place]GERY [place] [facility] Apr 10, 2024 01:00 PM [place]IC[place] [facility] Apr 14, 2024 07:00 AM [place]ATORY - NONE [place] [facility] Apr 15, 2024 10:45 AM [place]IC[place] [facility] Apr 21, 2024 11:00 AM [place] [facility] Jun 11, 2024 09:00 AM [place] [facility] Jun 18, 2024 09:00 AM [place] [facility] Jun 25, 2024 09:00 AM [place] [facility] Jul 02, 2024 09:00 AM [place] [facility] Jul 09, 2024 09:00 AM [place] [facility] Jul 16, 2024 09:00 AM [place]IC[place] [facility] Jul 23, 2024 09:00 AM AM[place]ORY [place]IC[place] [facility] Jul 30, 2024 09:00 AM AM[place]ORY [place]IC[place] [facility] Aug 06, 2024 09:00 AM AMB[place]ORY [place]IC[place] [facility] Aug 13, 2024 09:00 AM AM[place]ORY [place]IC[place] [facility] Active, Pending, and Scheduled Orders [...] Order [facility] ([facility]) Cons Pro Shop Attendant's Choice [facility] Apr 14, 2024 12:00 AM Laboratory - Chemi stry Order CBC NO DIFF BLOOD(LAV-EDTA-WB) SP [facility] Apr 14, 2024 12:00 AM Laboratory - Chemi stry Order PT&INR BLOOD(BLUE-NA CIT) PLASMA SP [facility] Lab Results: +/- 30 days [...] Apr 10, 2024 12:05 PM [facility] PT&INR Specimen Type: PLASMA Comment: Tests performed on [employer] TOP 350 SN [id number] ([id number]) Criticals repeated,call ed to,read back by: ARUN SILVERIO 04/10/24 AT 12:44 PM Ordering Provider: VANESSA PATEL Report Released Date/Time: Apr 08, 2024 12:40 PM Reporting Lab: [facility] [address] [facility] [address] Performing Lab: [facility] [address] [facility] [address] INR 7.3 {ratio} HH 0.9-1.1 PT 75.7 s H 9.4-12.5 Apr 10, 2024 12:05 PM [facility] P4 GLU,BUN,CREAT,LYTES,CA Specimen Type: PLASMA Comment: , Tests performed on [facility] Craven SN:[id number] ([id number]) Ordering Provider: Mairbel MENDEZ Report Released Date/Time: Apr 07, 2024 03:31 PM Reporting Lab: [facility] [address] [facility] [address] Performing Lab: [facility] [address] [facility] [address] UREA NITROGEN 21 mg/dL 7-25 SODIUM 135 mmol/L 135-145 POTASSIUM 4.1 mmol/L 3.5-5.0 CHLORIDE 102 mmol/L 100-110 CARBON DIOXIDE 27 mmol/L 20-30 ANION GAP 6 4-16 GLUCOSE 92 mg/dL 65-100 CREATININE 0.93 mg/dL 0.50-1.50 CALCIUM 9.5 mg/dL 8.5-10.5 eGFR(CKD-EPI 2020) >90 See_Comment Apr 07, 2024 10:26 AM [facility] PT&INR Specimen Type: PLASMA Comment: Tests performed on IL ACL TOP 350 SN [id number] ([id number]) Ordering Provider: LOS GOMEZ Report Released Date/Time: Apr 02, 2024 03:19 PM [facility] [address] [facility] [address] Performing Lab: [facility] [address] [facility] [address] INR 3.5 {ratio} H 0.9-1.1 PT 37.5 s H 9.4-12.5 Apr 02, 2024 03:30 PM [facility] CBC NO DIFF Specimen Type: BLOOD No comment entered. Ordering Provider: LOS GOMEZ Report Released Date/Time: Apr 02, 2024 03:17 PM Reporting Lab: [facility] [address] [facility] [address] Performing Lab: [facility] [address] [facility] [address] WBC 6.1 10*3/uL 4.5-11.0 RBC 4.77 10*6/uL 4.23-5.66 HGB 15.6 g/dL 12.8-17 HEMATOCRIT 44.9 39.2-50.4 MCV 94.1 fL 82-99 MCH 32.7 pg H 26.2-32.6 MCHC 34.7 g/dL 30.8-35.1 PLT 257 10*3/uL 140-360 MPV 8.9 fL L 9.2-12.4 RDW 14.1 12.0-16.0 Apr 02, 2024 03:30 PM [facility] PT&INR Specimen Type: PLASMA Comment: Tests performed on IL ACL TOP 350 SN [id number] (405) Ordering Provider: LOS GOMEZ Report Released Date/Time: Apr 02, 2024 03:17 PM Reporting Lab: [facility] [address] [facility] [address] Performing Lab: [facility] [address] [facility] [address] INR 1.2 {ratio} H 0.9-1.1 PT 12.9 [...] May 18, 2021 ADVANCE DIRECTIVE RICHARD DAN [facility] Encounter Notes: All associated encounter notes This section contains the clinical notes associated to the Encounter. Date/Time Encounter Note(s) Provider Source Apr 04, 2024 07:14 AM [facility] NOTE: LOCAL TITLE: Anticoagulation Clinic/Video Machines Mechanic STANDARD TITLE: [facility] ANTICOAGULATION NOTE DATE OF NOTE: APR 04, 2024@07:14 ENTRY DATE: APR 04, 2024@07:14:25 AUTHOR: VANESSA PATEL COSIGNER: URGENCY: STATUS: COMPLETED [facility]. [facility] [address], [place] [address] NATE BOLANOS PACT [facility] Purpose of encounter: Chart review for documentation prior to scheduled initial anticoagulation clinic phone appointment The was not present during this review Time spent on encounter: 20 minutes Subjective/Objective information: anticipated new start warfarin for afib d/t DDI w/ phenytoin. Per Anticoag consult, [place] seen by cardiology today w/ phone call placed to anticoagulation clinic from cardiology provider questioning d/d interaction with phenytoin and anticoagulation options. Indicated that apixaban, rivaroxaban, dabigatran are all contraindications with phenytoin. Edoxaban is recommended to be avoid with phenytoin, therefore, warfarin recommended for this . In accordance with the VISN 1 warfarin initiation algorithm & given is not noted to be frail, elderly, low body weight, acutely ill, or w/ high bleeding risk (no noted bleeding disorders, no noted PMH of GI bleeding) -- recommended warfarin 5mg daily to begin therapy. Per conversation w/ cardiology provider ([place] in the background), NOT taking ibuprofen. Given weekend will plan to obtain first INR on Sunday, 04/07. Non-VA providers: all [place] Medication information: all [place] Active and Recently Outpatient Medications (including Supplies): Active Outpatient Medications Status ========= 1) CHLORHEXIDINE GLUCONATE 0.12% MOUTHWASH RINSE 1 [...] MORNING TO REMOVE FLUID/CONTROL BLOOD PRESSURE 6) IBUPROFEN 600MG TAB TAKE ONE TABLET BY MOUTH THREE ACTIVE TIMES DAILY NEEDED FOR PAIN 7) LAMOTRIGINE 100MG TAB TAKE THREE TABLETS BY MOUTH ACTIVE EVERY MORNING AND TAKE FOUR TABLETS EVERY EVENING ### 8) LEVOTHYROXINE NA (SYNTHROID) 125MCG TAB TAKE TWO ACTIVE TABLETS BY MOUTH ONCE EVERY MORNING FOR HYPOTHYROIDISM HALF-HOUR BEFORE FOOD INCREASE IN DOSE 9) LISINOPRIL 10MG TAB TAKE ONE TABLET BY MOUTH ONCE ACTIVE EVERY EVENING FOR HIGH BLOOD PRESSURE 10) MELATONIN 5MG CAP/TAB TAKE ONE CAP/TAB BY MOUTH EVERY ACTIVE DAY FOR SLEEP 11) METOPROLOL SUCCINATE 25MG SA TAB TAKE ONE TABLET BY ACTIVE MOUTH TWICE A DAY FOR ATRIAL FIBRILLATION FOR RATE CONTROL 12) PHENYTOIN NA (DILANTIN) 100MG SA CAP TAKE ONE CAPSULE ACTIVE BY MOUTH EVERY MORNING AND TAKE TWO CAPSULES EVERY EVENING TO PREVENT SEIZURES NEEDS DILANTIN BRAND 13) SILDENAFIL CITRATE 100MG TAB TAKE ONE TABLET BY MOUTH ACTIVE NEEDED MAX USE ONCE IN 24 HOUR PERIOD 14) TRAZODONE HCL 50MG TAB TAKE ONE TABLET BY MOUTH AT ACTIVE BEDTIME FOR INSOMNIA MAY TAKE ONE ADDITIONAL TABLET NEEDED 15) TRIAMCINOLONE ACETONIDE 0.1% OINT APPLY SMALL AMOUNT ACTIVE TOPICALLY TWICE DAILY NEEDED FOR DERMATITIS 16) WARFARIN NA ([place]) 5MG TAB TAKE ONE TABLET BY ACTIVE MOUTH ONCE DAILY TO HELP PREVENT BLOOD CLOTS (ANTICOAGULATION) Active Non-VA Medications Status ========= 1) Non-VA DOXYCYCLINE HYCLATE 100MG TAB 100MG BY MOUTH ACTIVE - old rx TWICE A DAY 17 Total Medications No Active Remote Medications for this patient Medication reconciliation not completed during this review. Plan for medication reconciliation with during initial phone visit. Factors affecting anticoagulation: [ ] None identified [ ] Medication changes [X] Alcohol use (increases risk of bleeding/INR) - minimal [ ] Tobacco/Marijuana/CBD use (increases risk of bleeding/INR) - none [ ] Medication compliance issues [X] Upcoming tests/procedures - cardio DCCV/ablation? [ ] Diet/Vitamin K change [ ] Acute illness [ ] Activity change [ ] Other Bleeding/thromboembolic/other complications: [X] None noted [ ] Bleeding complications [ ] Thrombotic complications [ ] Falls/injuries Other issues: none Indication for anticoagulation: Atrial Fibrillation INR Goal: 2-3 Anticoagulation initiated: 04/03/24 ? Duration of anticoagulation: TBD per cardio Warfarin tablet strength: 5mg Time of administration: ? Bleeding hx: none noted Fall hx: none noted Preferred Contact: (cell) Not eligible for DOAC d/t Phenytoin DDI [...] reported dose: TWD: INR: 1.2 (04/02/24 15:30) Warfarin 5mg daily started on 04/03/24 Assessment: 48 y/o newly started on warfarin for afib. Baseline labs shows INR at 1.2. Goal 2-3. He is not eligible to take a DOAC d/t a critical DDI w/ Phenytoin. CBC WNL. Duration of warfarin TBD by cardio. Initial cardio appt scheduled for 04/21/24. Plan: continue current regimen for now w/ close monitoring Warfarin dose: 5mg daily Future follow-up: Scheduled new patient phone-call with melita /garrick/ VANESSA PATEL PHARMD CLINICAL PHARMACIST Signed: 04/04/2024 07:36 [facility] PATEL [facility]
--- OUTSIDE RECORDS SUMMARY | 2024-04-14 13:57 | XMS_ITS ---
Author Name [facility] [place] [facility] [place] [facility] [place] Address [address] [place] [address] Care Team Providers Care Fixer Supervisor Name Role Phone LUIS MIGUEL NATE Primary Care Provider [facility] Selected Encounter This section includes the information on record at [place] for the Encounter. Date/Time Encounter Type Encounter Description Reason Provider Source Mar 05, 2024 12:37 PM EMERGENCY DEPT VISIT MOD [facility] EMERGENCY DEPT ICD-10-CM M79.661 Pain in right lower leg SNOOK,BRENDA P IHE Encounter Template Text not used by [place] Assessments - Encounter Diagnoses This section includes the primary and secondary diagnoses documented for the Encounter. Date/Time Primary/Secondary Diagnosis Diagnosis Name Provider Source Mar 05, 2024 01:58 PM PRIMARY Pain in right lower leg SNOOK,BRENDA P [place] [facility] Mar 05, 2024 01:58 PM SECONDARY Varicose veins of left lower extremity with inflammation SNMANASK,BRENDA P [place] [facility] Plan of Treatment: Future Appointments (+ [...] 20 appointments. The data comes from all [place] treatment facilities. Appointment Date/Time Appointment Type Appointme nt Facility Name Mar 11, 2024 08:00 AM [place]ORY [place] [facility] Mar 11, 2024 09:30 AM [place] [facility] Apr 02, 2024 12:30 PM [place] [facility] Apr 04, 2024 10:00 AM [place] [facility] Apr 07, 2024 09:45 AM AMBULATORY - NONE [facility] Apr 08, 2024 11:15 AM [place] [facility] Apr 09, 2024 10:30 AM [place] [facility] Apr 10, 2024 09:15 AM [place] [facility] Apr 10, 2024 09:30 AM [place] [facility] Apr 10, 2024 12:00 PM [place] [facility] Apr 10, 2024 01:00 PM [place] [facility] Apr 14, 2024 07:00 AM [place] [facility] Apr 15, 2024 10:45 AM [place] [facility] Apr 21, 2024 11:00 AM [place] [facility] Jun 11, 2024 09:00 AM [place] [facility] Jun 18, 2024 09:00 AM [place] [facility] Jun 25, 2024 09:00 AM [place] [facility] Jul 02, 2024 09:00 AM [place] [facility] Jul 09, 2024 09:00 AM [place] [facility] Jul 16, 2024 09:00 AM [place] [facility] Active, Pending, [...] of theEncounter. The data comes from all [place] treatment facilities. Test Date/Time Test Type Test Details Facility Name Apr 11, 2024 08:29 AM Consult Order [facility] (ANTI-COAG) Cons [place] [facility] Counselor's Choice [facility] Apr 14, 2024 12:00 AM Laboratory - Chemi stry Order CBC NO DIFF BLOOD(LAV-EDTA-WB) SP [facility] Apr 14, 2024 12:00 AM Laboratory - Chemi stry Order PT&INR BLOOD(BLUE-NA CIT) PLASMA SP [facility] Lab Results: +/- 30 days of the encounter This section includes the Chemistry and Hematology Lab Results on record with [place] for the patient. Radiology Reports and Pathology Reports are provided separately, in subsequent sections. Lab Results This section contains the Chemistry/Hematology Results that were resulted 30 days before or 30 daysafter the date of the Encounter. Date/Time Source Result Type Result - Unit Interpretation Reference Range Comment Apr 02, 2024 03:30 PM [facility] PT&INR Specimen Type: PLASMA Comment: Tests performed on IL ACL TOP 350 SN [id number] (405) Ordering Provider: LOS GOMEZ Report Released Date/Time: Apr 02, 2024 03:17 PM Reporting Lab: [facility] [address] [address] Performing Lab: [facility] [address] [address] INR 1.2 {ratio} H 0.9-1.1 PT 12.9 s H 9.4-12.5 Apr 02, 2024 03:30 PM [facility] CBC NO DIFF Specimen Type: BLOOD No comment entered. Ordering Provider: LOS GOMEZ Report Released Date/Time: Apr 02, 2024 03:17 PM Reporting Lab: [facility] [address] [address] Performing Lab: [facility] [address] [address] WBC 6.1 10*3/uL 4.5-11.0 RBC 4.77 10*6/uL [...] Pain Height Weight Body Mass Index Source Mar 05, 2024 12:40 PM 96.9 88 137/90 14 98 3 [facility] Advance Directives: All historical and current Section Date Range: From patient's date of to the date document was created. This section includes ALL of a patient's completed or amended [place] Advance and Rescinded Directives. The entries below indicate that a directive exists for the patient, but an actual copy is not included with this document. The data comes from all [place] facilities. Date Advance Directives Provider Source May 18, 2021 ADVANCE DIRECTIVE RICHARD DAN [facility] Encounter Notes: All associated encounter notes This section contains the clinical notes associated to the Encounter. Date/Time Encounter Note(s) Provider Source Mar 05, 2024 01:14 PM EMERGENCY DEPT DIS CHARGE NOTE: LOCAL TITLE: Emergency Dept Discharge Instructions STANDARD TITLE: EMERGENCY DEPT DISCHARGE NOTE DATE OF NOTE: MAR 05, 2024@13:14 ENTRY DATE: MAR 05, 2024@13:14:49 AUTHOR: BRENDA MAGANA EXP COSIGNER: URGENCY: STATUS: COMPLETED DISCHARGE INSTRUCTIONS FOR: MR. BISMARK HAYWARD [address] [place] [id number] MAR 05, 2024 YOUR DIAGNOSIS: varicose veins TREATMENT YOU RECEIVED IN THE EMERGENCY DEPARTMENT: telephone consultation with vascular surgery RESULTS: You have appointements scheduled: You will be contacted with follow-up appointments for your vascular lab study and vascular surgery visit. TREATMENT INSTRUCTIONS UPON DISCHARGE FROM THE EMERGENCY DEPARTMENT, INCLUDING INSTRUCTIONS FOR MEDICATIONS: Elevate legs when veins swell. May apply warm compresses to aid in encouraging the circulation. Use compression stockings when upright. Ibuprofen as needed as directed for pain. ACTIVE MEDICATIONS: Active Outpatient Medications (excluding Supplies): Active Outpatient Medications Status 1) ASPIRIN 325MG TAB TAKE ONE TABLET BY MOUTH EVERY DAY ACTIVE TO PREVENT STROKE/HEART ATTACK OR FOR PAIN/INFLAMMATION/SWELLING 2) CHLORHEXIDINE GLUCONATE 0.12% MOUTHWASH RINSE 1 ACTIVE CAPFUL (15ML) BY MOUTH TWICE A DAY 3) CHOLECALCIF 25MCG (D3-1,000UNIT) TAB TAKE ONE TABLET ACTIVE BY MOUTH ONCE DAILY 4) DILTIAZEM (EQV-TIAZAC) 360MG 24HR CAP TAKE ONE ACTIVE CAPSULE BY MOUTH EVERY DAY FOR HEART RATE/BLOOD PRESSURE 5) FAMOTIDINE 20MG TAB TAKE ONE TABLET BY MOUTH TWICE A ACTIVE DAY FOR STOMACH ACID 6) HYDROCHLOROTHIAZIDE 12.5MG TAB TAKE ONE TABLET BY ACTIVE MOUTH EVERY MORNING TO REMOVE FLUID/CONTROL BLOOD PRESSURE 7) IBUPROFEN 600MG TAB TAKE ONE TABLET BY MOUTH THREE ACTIVE TIMES DAILY NEEDED FOR PAIN 8) LAMOTRIGINE 100MG TAB TAKE THREE TABLETS BY MOUTH ACTIVE EVERY MORNING AND TAKE FOUR TABLETS EVERY EVENING ### 9) LEVOTHYROXINE NA (SYNTHROID) 125MCG TAB TAKE TWO ACTIVE TABLETS BY MOUTH ONCE EVERY MORNING FOR HYPOTHYROIDISM HALF-HOUR BEFORE FOOD INCREASE IN DOSE 10) LISINOPRIL 10MG TAB TAKE ONE TABLET BY MOUTH ONCE ACTIVE EVERY EVENING FOR HIGH BLOOD PRESSURE 11) MELATONIN 5MG CAP/TAB TAKE ONE CAP/TAB BY MOUTH EVERY ACTIVE (S) DAY FOR SLEEP 12) PHENYTOIN NA (DILANTIN) 100MG SA CAP [...] ACTIVE TOPICALLY TWICE DAILY NEEDED FOR DERMATITIS Active Non-VA Medications Status 1) Non-VA DOXYCYCLINE HYCLATE 100MG TAB 100MG BY MOUTH ACTIVE TWICE A DAY 16 Total Medications INSTRUCTIONS FOR FOLLOW UP: Follow up with vascular lab and vascular surgery clinic as schedule. Return to the emergency department immediately if redness of the veins, fever, other new or worsening symptoms. A copy of these instructions was given to the patient and/or caregiver. The instructions were reviewed with the patient and/or caregiver. The patient and/or caregiver showed understanding of the instructions before discharge from the Emergency Department. TREATING PHYSICIAN: BRENDA SHIELDS MD, EMERGENCY DEPARTMENT SCHEDULED FUTURE APPOINTMENTS: Future Appointments - May@09:00 [facility] JUN 18,2023@09:00 [facility] JUN 25,2023@09:00 [facility] JUL 02,2023@09:00 [facility] JUL 09,2023@09:00 [facility] JUL 16,2023@09:00 [facility] JUL 23,2023@09:00 [facility] JUL 30,2023@:00 [facility] AUG 06,2023@09:00 [facility] AUG 13,2023@09:00 [facility] AUG 20,2023@09:00 [facility] AUG 27,2023@:00 [facility] SEP 03,2023@09:00 [facility] SEP 10,2023@09:00 [facility] OCT 01,2024@09:00 [facility] OCT 08,2024@09:00 [facility] During normal business hours Sunday-Sunday 8-4 PM: If you have any problems, your social contact worker or a doctor can be reached by calling the telephone advice line at: (P) [phone], ext. [phone] Toll-free (P) [phone] ext. [phone] If you are a in crisis, free confidential support is available 16/04. To access, call the Veterans Crisis Line by dialing 988 and press 1. You may also text [phone] or start an online chat session at [email or web address] Crisis support for the deaf and hard of hearing can be reached by using your preferred relay service or dial 711 then 988. /garrick/ BRENDA SHIELDS MD, EMERGENCY DEPARTMENT Signed: 03/05/2024 13:56 BRENDA MAGANA [facility] Mar 05, 2024 12:57 PM EMERGENCY DEPT NOT E: LOCAL TITLE: ED ICT NOTE/EMERGENCY DEPARTMENT NOTE STANDARD TITLE: EMERGENCY DEPT NOTE DATE OF NOTE: MAR 05, 2024@12:57 ENTRY DATE: MAR 05, 2024@12:57:20 AUTHOR: SAMUEL CRANE EXP COSIGNER: URGENCY: STATUS: COMPLETED * Falls Patient greater than 70 years old? No Triage report received from the RN. Patient is sitting in FAST track chair 1. TW introduced self to the patient, had patient remove the left shoe, sock and raise his pant leg up so that his calf could be seen for exam. Visible varicose veins visible on exam, swelling in the lower leg noted. Not warm to the touch, no redness noted. Palpable petal pulses noted. Provider into see the patient. Provider will order Ibruprofen for the patient at the pharmacy for sisal picker and told the patient to follow up with vasular lab. Discharged to home /garrick/ SAMUEL CRANE ICT Signed: 03/05/2024 13:58 SAMUEL CRANE [facility] Mar 05, 2024 12:46 PM EMERGENCY DEPT TRI AGE NOTE: LOCAL TITLE: EMERGENCY DEPT TRIAGE NOTE STANDARD TITLE: EMERGENCY DEPT TRIAGE NOTE DATE OF NOTE: MAR 05, 2024@12:46 ENTRY DATE: MAR 05, 2024@12:46:53 AUTHOR: COLE FAY EXP COSIGNER: URGENCY: STATUS: COMPLETED Emergency Department/Urgent Care Center Triage Patient age: 48 Sex: MALE On arrival patient was: AMBULATORY Location Patient came from: Home Patient phone number: Have you traveled recently No Allergies: Patient has answered NKA Chief Complaint: Patient presents to ED with c/o varicose veins to medial side of RLE which have been present for 6 months. Patient reports pain and swelling in varicose vein area which has been present for 3-4 months. Patient reports he was seen by PCP and vascular study was ordered and scheduled for today. Vascular had to cancel appt for more emergent patient and advised patient to come to ED. Patient loyd has been taking ibprofen for pain at home with good effect. Patient reprots usually wears compression socks but swelling still present with socks on, not wearing compression socks today. Patient denies any change in pain with activity or ambulation. Objective: Patient alert and oriented x4. Patient able to ambulate independently with steady gait. Patient with varicose veins to medial side of RLE, no bruising noted. Swelling noted to RLE above sock line. Patient in no apparent physical distress at time of arrival. The patient is not a fall risk. Vital Signs BP: 137/90 (03/05/2024 12:40) Pulse: 88 (03/05/2024 12:40) Temp: 96.9 F [36.1 C] (03/05/2024 12:40) Resp: 14 (03/05/2024 12:40) HT(in): 70 in [177.8 cm] (12/31/2023 09:28) WT(lbs):264.6 lb [120.02 kg] (12/31/2023 09:28) 03/05/24 @ 1240 PULSE OXIMETRY: 98 Pain: 3 (03/05/2024 12:40) Emergency Severity Index (JUSTINA) level Level 4 Current Medications: Active Outpatient Medications (excluding Supplies): Active Outpatient Medications Status 1) ASPIRIN 325MG TAB TAKE ONE TABLET BY MOUTH EVERY DAY ACTIVE TO PREVENT STROKE/HEART ATTACK OR FOR PAIN/INFLAMMATION/SWELLING 2) CHLORHEXIDINE GLUCONATE 0.12% MOUTHWASH RINSE 1 ACTIVE CAPFUL (15ML) BY MOUTH TWICE A DAY 3) CHOLECALCIF 25MCG (D3-1,000UNIT) TAB TAKE ONE TABLET ACTIVE BY MOUTH ONCE DAILY 4) DILTIAZEM (EQV-TIAZAC) 360MG 24HR CAP TAKE ONE ACTIVE CAPSULE BY MOUTH EVERY DAY FOR HEART RATE/BLOOD PRESSURE 5) FAMOTIDINE 20MG TAB TAKE ONE TABLET BY MOUTH TWICE A ACTIVE DAY FOR STOMACH ACID 6) HYDROCHLOROTHIAZIDE 12.5MG TAB TAKE ONE TABLET BY ACTIVE MOUTH EVERY MORNING TO REMOVE FLUID/CONTROL BLOOD PRESSURE 7) LAMOTRIGINE 100MG TAB TAKE THREE TABLETS [...] TAKE ONE CAP/TAB BY MOUTH EVERY ACTIVE (S) DAY FOR SLEEP 11) PHENYTOIN NA (DILANTIN) 100MG SA CAP [...] ACTIVE TOPICALLY TWICE DAILY NEEDED FOR DERMATITIS Active Non-VA Medications Status 1) Non-VA DOXYCYCLINE HYCLATE 100MG TAB 100MG BY MOUTH ACTIVE TWICE A DAY 15 Total Medications Current Problems: 1. Low back pain 2. Varicose veins 3. Pain of right knee joint 4. Essential hypertension 5. Epilepsy 6. AF- Atrial Fibrillation (SCT 91781158) 7. Cardiomyopathy 8. Mitral valve regurgitation 9. Obstructive sleep apnea syndrome 10. GERD - Gastro-Esophageal Reflux Disease (SCT 398056127) 11. Depressive disorder 12. Genital warts 13. Family History of Psychiatric Condition 14. Family History of Diabetes Mellitus 15. Hypothyroidism (SNOMED CT 53376940) Suicide Screen: [place] Suicide Severity Rating Scale (C-SSRS) screener 1. Over the past month, have you wished you were or wished you could go to sleep and not wake up? No 2. Over the past month, have you had any actual thoughts of killing yourself? No 3. Over the past month, have you been thinking about how you might do this? Response not required due to responses to other questions. 4. Over the past month, have you had these thoughts and had some intention of acting on them? Response not required due to responses to other questions. 5. Over the past month, have you started to work out or worked out the details of how to kill yourself? Response not required due to responses to other questions. 6. If yes, at any time in the past month did you intend to carry out this plan? Response not required due to responses to other questions. 7. In your lifetime, have you ever done anything, started to do anything, or prepared to do anything to end your life (for example, collected pills, obtained a gun, gave away valuables, went to the roof but didn't jump)? No 8. If YES, was this within the past 3 months? Response not required due to responses to other questions. Sepsis Screening SUSPECTED INFECTION No How often did you have a drink containing alcohol in the past year? 1 drink per month Have you smoke or use tobacco products in the last 30 days? No Any recent injuries? No Patient Disposition: ED fast track chair 1, handoff given to Heather Crane, [facility] Tele ICU contacted No /es/ COLE FAY RN Signed: 03/05/2024 12:51 COLE FAY [facility] Mar 05, 2024 12:43 PM EMERGENCY DEPT NOT E: LOCAL TITLE: ED MD Note/Emergency Department Physician Note STANDARD TITLE: EMERGENCY DEPT NOTE DATE OF NOTE: MAR 05, 2024@12:43 ENTRY DATE: MAR 05, 2024@12:43:44 AUTHOR: BRENDA MAGANA EXP COSIGNER: URGENCY: STATUS: COMPLETED CHIEF COMPLAINT: varicose veins RLE HISTORY and PHYSICAL EXAMINATION: HPI: 48-year-old man with a history of varicose veins, A. fib on a daily aspirin, mitral valve regurgitation, cardiomyopathy, GERD, who presents with complaint of intermittent swelling of his varicose veins in his right lower leg which are associated with pain. The pain is over where the veins are swollen, there is swelling in that location as well, the pain is burning/aching, constant, nonradiating, currently rated 3 out of 10 in severity. The patient denies any chest pain or shortness of breath and denies any fever. Patient is already using compression stockings. He had an appointment today for a vascular lab study and an appointment with vascular surgery tomorrow. He had to be bumped from the vascular lab schedule because of an inpatient study, so both of these appointments were cancelled. He was referred to the emergency department to manage pain in his leg since he was not going to be seen in the vascular appointments. ROS: Constitutional: Denies fever. Neurologic: Denies h/o stroke, has a h/o seizures on phenytoin and lamotrigine, hasn't had any seizures for years. Pulmonary: Denies cough or shortness of breath. Cardiac: Denies chest pain or palpitations. GI: Denies abdominal pain, nausea, vomiting or diarrhea. : Denies dysuria. Endocrine: Denies h/o DM. COVID: Has had COVID in the past. Has been immunized against COVID with 2 doses of Moderna vaccine. Rheumatologic: Denies h/o Rheumatoid arthritis or gout. Psychiatric: Denies h/o PTSD, SI or HI. [X] Other than pertinent positives and negatives noted above and in HPI, all other systems on complete review are negative. PMH: Low back pain Varicose veins Pain of right knee joint Hypertension Epilepsy Atrial Fibrillation Cardiomyopathy Mitral valve regurgitation Obstructive sleep apnea syndrome Gastro-Esophageal Reflux Disease Depressive disorder Genital warts Hypothyroidism Meds: Active and Recently Outpatient Medications (including Supplies): Active Outpatient Medications Status 1) ASPIRIN 325MG TAB TAKE ONE TABLET BY MOUTH EVERY DAY ACTIVE TO PREVENT STROKE/HEART ATTACK OR FOR PAIN/INFLAMMATION/SWELLING 2) CHLORHEXIDINE GLUCONATE 0.12% MOUTHWASH RINSE 1 ACTIVE CAPFUL (15ML) BY MOUTH TWICE A DAY 3) CHOLECALCIF 25MCG (D3-1,000UNIT) TAB TAKE ONE TABLET ACTIVE BY MOUTH ONCE DAILY 4) DILTIAZEM (EQV-TIAZAC) 360MG 24HR CAP TAKE ONE ACTIVE CAPSULE BY MOUTH EVERY DAY FOR HEART RATE/BLOOD PRESSURE 5) FAMOTIDINE 20MG TAB TAKE ONE TABLET BY MOUTH TWICE A ACTIVE DAY FOR STOMACH ACID 6) HYDROCHLOROTHIAZIDE 12.5MG TAB TAKE ONE TABLET BY ACTIVE MOUTH EVERY MORNING TO REMOVE FLUID/CONTROL BLOOD PRESSURE 7) LAMOTRIGINE 100MG TAB TAKE THREE TABLETS [...] TAKE ONE CAP/TAB BY MOUTH EVERY ACTIVE (S) DAY FOR SLEEP 11) PHENYTOIN NA (DILANTIN) 100MG SA CAP [...] ACTIVE TOPICALLY TWICE DAILY NEEDED FOR DERMATITIS Active Non-VA Medications Status 1) Non-VA DOXYCYCLINE HYCLATE 100MG TAB 100MG BY MOUTH ACTIVE TWICE A DAY 15 Total Medications Allergies: Patient has answered NKA PSH: open umbilical hernia repair Physical Exam: Vitals: TEMP PULSE RESP BP O2 SAT 96.9 88 14 137/90 98% RA General/Constitutional: WDWN WM in NAD focused exam of the right lower le+ dp and pt pulses, CR < 2 sec in toes which are warm and well-perfused. Patient has large serpiginous dilated veins in the right superomedial right matamoros. There is no redness, no skin disruption, no lymphangitis. No hyperpigmentation. DIAGNOSTIC INFORMATION: none IMPRESSION: symptomatic varicose veins with no suggestion of infection to exam ED COURSE AND MEDICAL DECISION MAKING: Patient presented to the ED for evaluation, and patient was triaged to the exam room. I reviewed the nursing notes and flow sheets, and patient was evaluated by me. Prior records were reviewed in [facility] as available and clinically relevant, including available medical, surgical, social, family, and allergy histories. Patient given advice to manage the discomfort, will be written on a short course of ibuprofen. I discussed him with the vascular surgery provider inspector semiconductor wafer to obtain f/u appointments for him expeditiously in vascular lab and vascular clinic. They do not have f/u for him until 04/2024, so the vascular provider is going to work on getting him appointments sooner and someone will be in contact with him by phone to give him those appointments. PERSONAL PROTECTIVE EQUIPMENT (PPE): RN used PPE during every encounter with the patient = Procedural Mask, Gloves, used PPE during every encounter with the patient = Procedural Mask, Gloves PATIENT INSTRUCTIONS: see the Emergency Department Discharge Instructions Note DISPOSITION: [X] DISCHARGED [ ] TRANSFERRED TO: [ ] LEFT AGAINST MEDICAL ADVICE [ ] ADMITTED TO: CONDITION: [ ] IMPROVED [X] SATISFACTORY [ ] UNCHANGED Police were called for intervention/observation during this visit: No The medication list was reviewed with the patient and discrepancies were resolved. The patient left with an updated list. [X] I have added the Primary Care Provider as an additional signer to this note The preceding note has been dictated using [employer]. It has been proofread, but there may be errors due to the dictation software. /garrick/ BRENDA SHIELDS MD, EMERGENCY DEPARTMENT Signed: 03/05/2024 14:25 Receipt Acknowledged By: 03/05/2024 17:26 /garrick/ NATE BOLANOS M.D INTERNAL MEDICINE, [facility] BRENDA MAGANA [facility]
--- OUTSIDE RECORDS SUMMARY | 2024-04-14 13:57 | XMS_ITS | Encounter Summary ---
Author Name [facility] [place] [facility] [place] [facility] [place] [facility] [place] Address [address] [place] [address] Care Team Providers Care Conservation Enforcement Officer Name Role Phone LUIS MIGUELNATE Primary Care Provider Unavailabl e Selected Encounter This section includes the information on record at [place] for the Encounter. Date/Time Encounter Type Encounter Description Reason Pro vider Source Mar 05, 2024 10:50 AM Outpatient Encounter ADMIN PAT ACTIVTIES (SANDEEPNONCT) IHE Encounter Template Text not used by [place] Plan of Treatment: Future Appointments (+ 6 months) and Future Tests (+/- 45 days) The Plan of Treatment section includes future care activities for the patient from all [place] treatmentfacilities. This section includes future appointments and future orders which are active, pending or scheduled. Future Appointments This section includes appointments that were scheduled to occur 6 months from the date of the Encounter, up to a maximum of 20 appointments. The data comes from all [place] treatment facilities. Appointment Date/Time Appointment Type Appointme nt Facility Name Mar 11, 2024 08:00 AM AMBULATORY - SURGERY [facility] Mar 11, 2024 09:30 AM AMBULATORY - SURGERY [facility] Apr 02, 2024 12:30 PM AMBULATORY - MEDICINE [facility] Apr 04, 2024 10:00 AM [facility] [place] [facility] Apr 07, 2024 09:45 AM AMBULATORY - NONE [facility] Apr 08, 2024 11:15 AM [facility] [place] [place] [facility] Apr 09, 2024 10:30 AM [facility] - SURGERY [facility] Apr 10, 2024 09:15 AM [facility] Apr 10, 2024 09:30 AM [facility] - NONE [facility] Apr 10, 2024 12:00 PM [facility] Apr 10, 2024 01:00 PM [facility] [place] [facility] Apr 14, 2024 07:00 AM [facility] - NONE [facility] Apr 15, 2024 10:45 AM [facility] [place] [facility] Apr 21, 2024 11:00 AM [facility] [place] [facility] Jun 11, 2024 09:00 AM [facility] [place] [facility] Jun 18, 2024 09:00 AM [facility] [place] [facility] Jun 25, 2024 09:00 AM [facility] [place] [facility] Jul 02, 2024 09:00 AM [facility] [place] [facility] Jul 09, 2024 09:00 AM [facility] [place] [facility] Jul 16, 2024 09:00 AM [facility] [place] [facility] Active, Pending, and Scheduled Orders This section includes a listing of several types of active, pending, and scheduled orders, including clinic medications orders, diagnostic test orders, procedure orders and consult orders; where the start date of the order is 45 days before the date of the Encounter or 45 days after the date of theEncounter. The data comes from all [place] treatment facilities. Test Date/Time Test Type Test Details Facility Name Apr 11, 2024 08:29 AM Consult Order [facility] (ANTI-COAG) Cons Lime Kiln Tender[facility] Apr 14, 2024 12:00 AM Laboratory - Chemi stry Order CBC NO DIFF BLOOD(LAV-EDTA-WB) SP [facility] Apr 14, 2024 12:00 AM Laboratory - Chemi stry Order PT&INR BLOOD(BLUE-NA CIT) PLASMA SP [facility] Lab Results: +/- 30 days of [...] Range Comment Apr 02, 2024 03:30 PM [facility] PT&INR Specimen Type: PLASMA Comment: Tests performed on [place] ACL TOP 350 SN [id number] (405) Ordering Provider: LOS GOMEZ Report Released Date/Time: Apr 02, 2024 03:17 PM Reporting Lab: [facility] [address] [facility] [address] Performing Lab: [facility] [address] [facility] [address] INR 1.2 {ratio} H 0.9-1.1 PT 12.9 s H 9.4-12.5 Apr 02, 2024 03:30 PM [facility] CBC NO DIFF Specimen Type: BLOOD No comment entered. Ordering Provider: LOS GOMEZ Report Released Date/Time: Apr 02, 2024 03:17 PM Reporting Lab: [facility] [address] [facility] [address] Performing Lab: [facility] [address] [facility] [address] WBC 6.1 10*3/uL 4.5-11.0 RBC 4.77 10*6/uL [...] PM 96.9 88 137/90 14 98 3 [facility] Advance Directives: All historical and current Section Date Range: From patient's date of to the date document was created. This section includes ALL of a patient's completed or amended [place] Advance and Rescinded Directives. The entries below indicate that a directive exists for the patient, but an actual copy is not included with this document. The data comes from all [place] facilities. Date Advance Directives Provider Source May 18, 2021 ADVANCE DIRECTIVE RICHARD DAN [facility] Encounter Notes: All associated encounter notes This section contains the clinical notes associated to the Encounter. Date/Time Encounter Note(s) Provider Source Mar 05, 2024 10:50 AM ADMINISTRATIVE NOT E: LOCAL TITLE: Has Admin Note STANDARD TITLE: ADMINISTRATIVE NOTE DATE OF NOTE: MAR 05, 2024@10:50 ENTRY DATE: MAR 05, 2024@10:50:27 AUTHOR: JULIA MORTON EXP COSIGNER: URGENCY: STATUS: COMPLETED Reason for call Clinic Name:[facility] OUTPATIENT & VASCULAR SURGERY OUTPATIENT CONSULTS APPTS SCHEDULED FOR 03/05 & 03/06 HAD TO BE CANCELLED D/T INPATIENT STUDY LEFT DETAILED MESSAGE [facility] REQUESTING CALL BACK SANDRA TO VERIFY HE RECEIVED MESSAGE ABOUT SAME DAY CANCELLATION BY CLINIC AND TO R/S. /garrick/ JULIA MORTON AMSA Signed: 03/05/2024 10:53 JULIA MORTON [facility]
--- OUTSIDE RECORDS SUMMARY | 2024-04-14 13:57 | XMS_ITS | Encounter Summary ---
Author Name [facility] [place] [facility] [place] Organization [facility] [place] [facility] [place] Address [address] [place] [address] Care Team Providers Care Automation Driver Name Role Phone NATE BOLANOS Primary Care Provider Unavailabl e Selected Encounter This section includes the information on record at [place] for the Encounter. Date/Time Encounter Type Encounter Description Reason Provider Source Apr 09, 2024 10:30 AM OFF/OP EST JANUARY X REQ PHY/QHP TELEPHONE/SURGERY ICD-10-CM Z01.818 Encounter for other preprocedural examination RANDY PITTS Encounter Template Text not used by [place] Assessments - Encounter Diagnoses This section includes the primary and secondary diagnoses documented for the Encounter. Date/Time Primary/Secondary Diagnosis Diagnosis Name Provider Source Apr 09, 2024 10:30 AM PRIMARY Encounter for other preprocedural examination RANDY PITTS [facility] Plan of Treatment: Future Appointments (+ 6 [...] 20 appointments. The data comes from all [place] treatment facilities. Appointment Date/Time Appointment Type Appointme nt Facility Name Apr 10, 2024 09:15 AM AM[place]ULATORY [place] [facility] Apr 10, 2024 09:30 AM AMBULATORY - NONE [place] [facility] Apr 10, 2024 12:00 PM AMB[place]ORY - [place] [facility] Apr 10, 2024 01:00 PM [place]IC[place] [facility] Apr 14, 2024 07:00 AM AMBULATORY - NONE [place] [facility] Apr 15, 2024 10:45 AM [place]IC[place] [facility] Apr 21, 2024 11:00 AM [place]IC[place] [facility] Jun 11, 2024 09:00 AM [place]ORY [place]IC[place] [facility] Jun 18, 2024 09:00 AM [place] [facility] Jun 25, 2024 09:00 AM AM[place]ORY - [place]IC[place] [facility] Jul 02, 2024 09:00 AM [place]IC[place] [facility] Jul 09, 2024 09:00 AM AM[place]ORY - [place]IC[place] [facility] Jul 16, 2024 09:00 AM [place]ORY - [place]IC[place] [facility] Jul 23, 2024 09:00 AM [place] - [place]IC[place] [facility] Jul 30, 2024 09:00 AM [place]ORY - [place]IC[place] [facility] Aug 06, 2024 09:00 AM [place]IC[place] [facility] Aug 13, 2024 09:00 AM AM[place]ULATORY - [place]IC[place] [facility] 2024 09:00 AM AM[place]ORY - [place]IC[place] [facility] Aug 27, 2024 09:00 AM AM[place]ORY - [place]IC[place] [facility] Sep 03, 2024 09:00 AM [facility] [place] [facility] Active, Pending, and Scheduled Orders This section includes a listing of several types of active, pending, and scheduled orders, including clinic medications orders, diagnostic test orders, procedure orders and consult orders; where the start date of the order is 45 days before the date of the Encounter or 45 days after the date of theEncounter. The data comes from all [place] treatment facilities. Test Date/Time Test Type Test Details Facility Name Apr 11, 2024 08:29 AM Consult Order [facility] (ANTI-COAG) Cons Extractor Plant Operator's Choice [facility] Apr 14, 2024 12:00 AM Laboratory - Chemi stry Order CBC NO DIFF BLOOD(LAV-EDTA-WB) SP [facility] Apr 14, 2024 12:00 AM Laboratory - Chemi stry Order PT&INR BLOOD(BLUE-NA CIT) PLASMA SP [facility] Lab Results: +/- 30 [...] Range Comment Apr 10, 2024 12:05 PM [facility] PT&INR Specimen Type: PLASMA Comment: Tests performed on LIFX TOP 350 SN [id number] ([id number]) Criticals repeated,call ed to,read back by: ARUN SILVERIO 04/10/24 AT 12:44 PM Ordering Provider: VANESSA PATEL Report Released Date/Time: Apr 08, 2024 12:40 PM Reporting Lab: [facility] [address] [facility] [address] Performing Lab: [facility] [address] [facility] [address] INR 7.3 {ratio} HH 0.9-1.1 PT 75.7 s H 9.4-12.5 Apr 10, 2024 12:05 PM [facility] P4 GLU,BUN,CREAT,LYTES,CA Specimen Type: PLASMA Comment: , Tests performed on [address] [place] SN:[id number] (405) Ordering Provider: Maribel MENDEZ Report Released Date/Time: Apr 07, 2024 03:31 PM Reporting Lab: [facility] [address] [facility] [address] Performing Lab: [facility] [address] [facility] [address] UREA NITROGEN 21 mg/dL 7-25 SODIUM 135 mmol/L 135-145 POTASSIUM 4.1 mmol/L 3.5-5.0 CHLORIDE 102 mmol/L 100-110 CARBON DIOXIDE 27 mmol/L 20-30 ANION GAP 6 4-16 GLUCOSE 92 mg/dL 65-100 CREATININE 0.93 mg/dL 0.50-1.50 CALCIUM 9.5 mg/dL 8.5-10.5 eGFR(CKD-EPI 2020) >90 See_Comment Apr 07, 2024 10:26 AM [facility] PT&INR Specimen Type: PLASMA Comment: Tests performed on [place] ACL TOP 350 SN [id number] (405) Ordering Provider: LOS GOMEZ Report Released Date/Time: Apr 02, 2024 03:19 PM Reporting Lab: [facility] [address] [facility] [address] Performing Lab: [facility] [address] [facility] [address] INR 3.5 {ratio} H 0.9-1.1 PT 37.5 s H 9.4-12.5 Apr 02, 2024 03:30 PM [facility] CBC NO DIFF Specimen Type: BLOOD No comment entered. Ordering Provider: LOS GOMEZ Report Released Date/Time: Apr 02, 2024 03:17 PM Reporting Lab: [facility] [address] [facility] [address] Performing Lab: [facility] [address] [facility] [address] WBC 6.1 10*3/uL 4.5-11.0 RBC 4.77 10*6/uL 4.23-5.66 HGB 15.6 g/dL 12.8-17 HEMATOCRIT 44.9 39.2-50.4 MCV 94.1 fL 82-99 MCH 32.7 pg H 26.2-32.6 MCHC 34.7 g/dL 30.8-35.1 PLT 257 10*3/uL 140-360 MPV 8.9 fL L 9.2-12.4 RDW 14.1 12.0-16.0 Apr 02, 2024 03:30 PM [facility] PT&INR Specimen Type: PLASMA Comment: Tests performed on [place] ACL TOP 350 SN [id number] (405) Ordering Provider: LOS GOMEZ Report Released Date/Time: Apr 02, 2024 03:17 PM Reporting Lab: [facility] [address] [facility] [address] Performing Lab: [facility] [address] [facility] [address] INR 1.2 {ratio} H 0.9-1.1 PT 12.9 s H 9.4-12.5 Advance Directives: All historical and current Section Date Range: From patient's date of to the date document was created. This section includes ALL of a patient's completed or amended [place] Advance and Rescinded Directives. The entries below indicate that a directive exists for the patient, but an actual copy is not included with this document. The data comes from all [place] facilities. Date Advance Directives Provider Source May 18, 2021 ADVANCE DIRECTIVE RICHARD DAN [facility] Encounter Notes: All associated encounter notes This section contains the clinical notes associated to the Encounter. Date/Time Encounter Note(s) Provider Source Apr 09, 2024 07:35 AM NURSING OUTPATIENT OPERATIVE NOTE: LOCAL TITLE: Same Day Nursing Progress Note STANDARD TITLE: NURSING OUTPATIENT OPERATIVE NOTE DATE OF NOTE: APR 09, 2024@07:35 ENTRY DATE: APR 09, 2024@07:35:09 AUTHOR: RANDY PITTS COSIGNER: URGENCY: STATUS: COMPLETED Same Day Nursing Health History Pre-op Visit PRE-OP TEACHING/VISIT Interview via:Telephone Pre procedure Date: Mar Pts. Telephone #: Procedure Date: Mar Procedure: CHRIS & DC CARDIOVERSION(Same Day outpatient procedure) Diagnosis/Reason for Procedure: AFIB Notify in Emergency: Primary NOK: ENRICO HAYWARD Relation: SON [address] [place], [place] [address] Notify in Emergency other then next of kin:MOOSE HYAWARD (FATHER) (c)[phone] Responsible Adult Electrician Station Assistant:MOOSE HAYWARD (FATHER) Waiting at [place]? TBA If no, Contact #:(c)[phone] Are you riding with [facility] [employer] ([facility])? No (if Yes, alert Sinan Siddiqui via the pre-procedure consult to assure appropriate scheduling) A responsible adult is recommended and available at home for the immediate 24 hours following procedure. Yes Who:(WILL STAY WITH YAEL LIMON (Mary.O.) Surgeon/Proceduralist:DANIELE Have you ever had Covid-19? Yes, 01/27/21 In the last 10 DAYS, have you experienced any of the following symptoms? No symptoms OF: Fever or chills New or unexplained onset of cough, shortness of breath, or difficulty breathing New or unexplained loss of taste or smell, sore throat New or unexplained muscle aches, headaches, GI disturbances *Alert provider via additional signer for any affirmative answers. Encourage patient to test themselves prior to [facility]. COVID VACCINES:X2 Is the patient being admitted? No Time of last Food/Fluids: See flow sheet day of surgery Age: 48 Vital Signs:PER RECORD, WILL UPDATE ON DAY OF PROCEDURES Temperature:98 F [36.7 C] (04/02/2024 12:30) Blood Pressure: 102/78 (04/02/2024 12:30) Pulse: 64 (04/02/2024 12:30) Pulse Oximetry: 04/02/24 @ 1230 PULSE OXIMETRY: 99 Respiration: 16 (04/02/2024 12:30) Height: 70 in [177.8 cm] (12/31/2023 09:28) Stated:70 Weight: 265 lb [120.20 kg] (04/02/2024 12:30) Stated:260 LBS Lung Sounds: N/A TELEPHONE INTERVIEW Heart Sounds: N/A TELEPHONE INTERVIEW Bladder Scan/PVR Result:N/A TELEPHONE INTERVIEW Distal Pulses:N/A TELEPHONE INTERVIEW Pain present? NO Location: R. KNEE Pain Level:1-2 Effective relief measures:NONE Loose Teeth: No Dentures:NO Bridges: NO Glasses: NO Hearing Aids:NO Prosthesis/Implants: NO Assist with ADLS: NO Living Will/Durable Power of Manager Of Purchasing: YES Info. Given: NO Oriental Orthodox: No Preference Mentation/Behavior: Awake,Alert,Oriented SUBSTANCE USE Current Alcohol Use: YES AMOUNT:RARE BEER Current Tobacco Use: NO Former Tobacco Use: NO Current Chewing Tobacco Use: NO Former Chewing Tobacco Use: NO Current Marijuana use: NO Former Marijuana use: NO Current Cocaine use: NO Former Cocaine use: NO Current Heroin use: NO Former Heroin use: NO Reproductions: Screening Patient has reproductive potential? (patient has a uterus, ovaries, is between 18-55, regardless of reversible contraception).No MEDICAL HISTORY: AF- ATRIAL FIBRILLATION CARDIOMYOPATHY MITRAL VALVE REGURGITATION ESSENTIAL HYPERTENSION VARICOSE VEINS; CARL. LOW BACK PAIN PAIN OF RIGHT KNEE JOINT UMBILICAL HERNIA; REPAIRED RIGHT INGUINAL HERNIA; REPAIRED H/O L. 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 THUMB FX'S Neurological Problems:EPILEPSY; LAST SEIZURE >12+ YRS AGO Peripheral Vascular Disease:VARICOSE VEINS CARL. R>L; WEARS COMPRESSION STOCKING Skin Intact:NO Heart Disease: YES, AFIB Previous VT:NO Angina/CP: NO If Yes, Last Episode: ONLY DYSPNEA High BP: YES Lung Disease:SLEEP APNEA; NO CPAP;DID NOT TOLERATE Elimination Problems:OCC. CONTIPATION, NOCTURIA X1 Is there any Violence/Abuse (verbal/physical) in your life? NO Does the patient have any visible signs of trauma or bruising? DENIES SURGICAL HISTORY (previous surgery/anesthesia):(DENIES PROBLEMS WITH ANESTHESIA OR SEDATION IN THE PAST) OPEN UMBILICAL HERNIA REPAIR/ EXCISION UMBILICAL SKIN COMPLEX - 01/31/2021 WISDON TEETH 1990 HERNIA REPAIR RT INGUINAL 1992 VASECTOMY CHOLECYSTCTOMY CURRENT MEDICATIONS:PER Patient ([facility]) 1) CHLORHEXIDINE GLUCONATE 0.12% MOUTHWASH RINSE 1 CAPFUL (15ML) BY MOUTH TWICE A DAY (NOT USING) 2) CHOLECALCIF 25MCG (D3-1,000UNIT) TAB TAKE ONE TABLET BY MOUTH ONCE DAILY 3) DILTIAZEM (EQV-TIAZAC) 360MG 24HR CAP TAKE ONE CAPSULE BY MOUTH EVERY DAY FOR HEART RATE/BLOOD PRESSURE 4) FAMOTIDINE 20MG TAB TAKE ONE TABLET BY MOUTH TWICE A DAY FOR STOMACH ACID 5) HYDROCHLOROTHIAZIDE 12.5MG TAB TAKE ONE TABLET BY MOUTH EVERY MORNING TO REMOVE FLUID/CONTROL BLOOD PRESSURE (QAM) 6) LAMOTRIGINE 100MG TAB TAKE THREE TABLETS BY MOUTH EVERY MORNING AND TAKE FOUR TABLETS EVERY EVENING ### (SEIZURE/EPILESY)) 7) LEVOTHYROXINE NA (SYNTHROID) 125MCG TAB TAKE TWO TABLETS BY MOUTH ONCE EVERY MORNING FOR HYPOTHYROIDISM HALF-HOUR BEFORE FOOD INCREASE IN DOSE 8) LISINOPRIL 10MG TAB TAKE ONE TABLET BY MOUTH ONCE EVERY EVENING FOR HIGH BLOOD PRESSURE (QPM) 9) MELATONIN 5MG CAP/TAB TAKE ONE CAP/TAB BY MOUTH EVERY DAY FOR SLEEP (PRN) 10) METOPROLOL SUCCINATE 25MG SA TAB TAKE ONE TABLET BY MOUTH TWICE A DAY FOR ATRIAL FIBRILLATION FOR RATE CONTROL 11) PHENYTOIN NA (DILANTIN) 100MG SA CAP TAKE ONE CAPSULE BY MOUTH EVERY MORNING AND TAKE TWO CAPSULES EVERY EVENING TO PREVENT SEIZURES NEEDS DILANTIN BRAND 12) SILDENAFIL CITRATE 100MG TAB TAKE ONE TABLET BY MOUTH NEEDED MAX USE ONCE IN 24 HOUR PERIOD 13) TRAZODONE HCL 50MG TAB TAKE ONE TABLET BY MOUTH AT BEDTIME FOR INSOMNIA MAY TAKE ONE ADDITIONAL TABLET NEEDED 14) TRIAMCINOLONE ACETONIDE 0.1% OINT APPLY SMALL AMOUNT TOPICALLY TWICE DAILY NEEDED FOR DERMATITIS 15) WARFARIN NA ([place]) 5MG TAB TAKE ONE TABLET BY MOUTH ONCE DAILY TO HELP PREVENT BLOOD CLOTS (ANTICOAGULATION)(NOW 2.5MG DAILY) (NON-VA) 16) MVI DAILY MEDICATION LIST REVIEWED WITH ? Patient Current Medication Regimen is correct Changes in Medication status noted Any changes to medication list? ABOVE Does patient take any anti-coagulants? Yes, WARFARIN Indicate last anti-coagulation dose taken:WARFARIN TODAY Information provider to patient : Verbal Patient given information on: Procedure to be performed Instruction pamphlet/brochure on Preparing for your PROCEDURE Reviewed with patient: The exact time of your surgery appointment cannot be determined until the day prior to your scheduled visit. At that time, you will receive a phone call after 2:30 PM and will be given the exact time you will need to arrive. Please disregard the generic 0800 appointment time in the system, unless this is verified by your nurse phone call Instructions: Nothing to eat: after midnight on :Mar Clear liquids until: 2 hours prior to your scheduled arrival time, Clear liquids include: water, marco ezra, apple/cranberry juice, black coffee or tea (no milk products) Appropriate medications to hold: LISINOPRIL 04/09/24 PM HCTZ 04/10/24 AM MVI& VIT D3 04/10/24 AM SILDENAFIL X 3 DAYS PRIOR Appropriate medications to take: ALL OTHER Routine a.m. meds, INCLUDING WARFARIN No jewelry, makeup, powder or deodorant Bring a valid ID, insurance card No valuables/appropriate clothing Must have a responsible Adult Electrician Station Assistant All patient questions answered: Patient verbalizes understanding of Planned Procedure and Pre-op instructions given. Questions answered. Yes /es/ RANDY PITTS ACCOUNTING SUPERVISOR Signed: 04/09/2024 10:59 RANDY PITTS [facility]
--- OUTSIDE RECORDS SUMMARY | 2024-04-14 13:57 | XMS_ITS ---
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 Date/Time Encounter Type Encounter Description Reason Provider Source Apr 04, 2024 10:00 AM MTMS BY JERRI DELGADO 15 MIN TELEPHONE/ANCILLA BRAULIO ICD-10-CM I48.91 Unspecified atrial fibrillation VANESSA PATEL Encounter Template Text not used by [facility] Assessments - Encounter Diagnoses This section includes the primary and secondary diagnoses documented for the Encounter. Date/Time Primary/Secondary Diagnosis Diagnosis Name Provider Source Apr 04, 2024 10:00 AM PRIMARY Unspecified atrial fibrillation VANESSA PATEL [facility] Plan of Treatment: Future Appointments (+ 6 months) and Future Tests (+/- 45 days) The Plan of Treatment section includes future care activities for the patient from all [facility] treatmentfacilities. This section includes future appointments and [...] 07, 2024 09:45 AM AMBULATORY - NONE [facility] Apr 08, 2024 11:15 AM [place] [facility] Apr 09, 2024 10:30 AM AMBULATORY - [place] [facility] Apr 10, 2024 09:15 AM AMBULATORY - [place] [facility] Apr 10, 2024 09:30 AM [place]ULATORY - [place]ONE [place] [facility] Apr 10, 2024 12:00 PM AMBULATORY - [place] [facility] Apr 10, 2024 01:00 PM [place] [facility] Apr 14, 2024 07:00 AM AMBULATORY - NONE [place] [facility] Apr 15, 2024 10:45 AM [place] [facility] Apr 21, 2024 11:00 AM [place] [facility] Jun 11, 2024 09:00 AM [place] [facility] Jun 18, 2024 09:00 AM [place] [facility] Jun 25, 2024 09:00 AM [place] [facility] Jul 02, 2024 09:00 AM [place]ORY [place] [facility] Jul 09, 2024 09:00 AM [place] [facility] Jul 16, 2024 09:00 AM [place] [facility] Jul 23, 2024 09:00 AM [place] [facility] Jul 30, 2024 09:00 AM [place]ORY - [place] [facility] Aug 06, 2024 09:00 AM [place] [facility] Aug 13, 2024 09:00 AM AM[place]UL[place]ORY - [place]IC[place] [facility] Active, Pending, and Scheduled Orders This [...] Order [facility] (ANTI-COAG) Cons Asthma Educator's Choice [facility] Apr 14, 2024 12:00 AM Laboratory - Chemi stry Order PT&INR BLOOD(BLUE-NA CIT) PLASMA SP [facility] Apr 14, 2024 12:00 AM Laboratory - Chemi stry Order CBC NO DIFF BLOOD(LAV-EDTA-WB) SP [facility] Lab Results: +/- 30 days [...] Range Comment Apr 10, 2024 12:05 PM [facility] PT&INR Specimen Type: PLASMA Comment: Tests performed on [employer] TOP 350 SN [id number] ([id number]) Criticals repeated,call ed to,read back by: ARUN SILVERIO 04/10/24 AT 12:44 PM Ordering Provider: VANESSA PATEL Report Released Date/Time: Apr 08, 2024 12:40 PM Reporting Lab: [facility] [address] [facility] [address] Performing Lab: [facility] [address] [facility] [address] INR 7.3 {ratio} HH 0.9-1.1 PT 75.7 s H 9.4-12.5 Apr 10, 2024 12:05 PM [facility] P4 GLU,BUN,CREAT,LYTES,CA Specimen Type: PLASMA Comment: , Tests performed on [employer] SN:[id number] ([id number]) Ordering Provider: Maribel MENDEZ Report Released Date/Time: Apr 07, 2024 03:31 PM Reporting Lab: [facility] [address] [facility] [address] Performing Lab: [facility] [address] [facility] [address] UREA NITROGEN 21 mg/dL 7-25 SODIUM 135 mmol/L 135-145 POTASSIUM 4.1 mmol/L 3.5-5.0 CHLORIDE 102 mmol/L 100-110 CARBON DIOXIDE 27 mmol/L 20-30 ANION GAP 6 4-16 GLUCOSE 92 mg/dL 65-100 CREATININE 0.93 mg/dL 0.50-1.50 CALCIUM 9.5 mg/dL 8.5-10.5 eGFR(CKD-EPI 2020) >90 See_Comment Apr 07, 2024 10:26 AM [place] [facility] PT&INR Specimen Type: PLASMA Comment: Tests performed on [employer] TOP 350 SN [id number] ([id number]) Ordering Provider: LOS GOMEZ Report Released Date/Time: Apr 02, 2024 03:19 PM Reporting Lab: [place] [facility] [address] [facility] [address] Performing Lab: [place] [facility] [address] [facility] [address] INR 3.5 {ratio} H 0.9-1.1 PT 37.5 s H 9.4-12.5 Apr 02, 2024 03:30 PM [place] [facility] PT&INR Specimen Type: PLASMA Comment: Tests performed on [place] ACL TOP 350 SN [id number] ([id number]) Ordering Provider: LOS GOMEZ Report Released Date/Time: Apr 02, 2024 03:17 PM Reporting Lab: [place] [facility] [address] [facility] [address] Performing Lab: [place] [facility] [address] [facility] [address] INR 1.2 {ratio} H 0.9-1.1 PT 12.9 s H 9.4-12.5 Apr 02, 2024 03:30 PM [place] [facility] CBC NO DIFF Specimen Type: BLOOD No comment entered. Ordering Provider: LOS GOMEZ Report Released Date/Time: Apr 02, 2024 03:17 PM Reporting Lab: [place] [facility] [address] [facility] [address] Performing Lab: [place] [facility] [address] [facility] [address] WBC 6.1 10*3/uL 4.5-11.0 RBC 4.77 10*6/uL [...] May 18, 2021 ADVANCE DIRECTIVE RICHARD DAN [facility] Encounter Notes: All associated encounter notes This section contains the clinical notes associated to the Encounter. Date/Time Encounter Note(s) Provider Source Apr 04, 2024 10:35 AM ADDENDUM: LOCAL TITLE: Addendum STANDARD TITLE: ADDENDUM DATE OF NOTE: APR 04, 2024@10:35:11 ENTRY DATE: APR 04, 2024@10:35:12 AUTHOR: VANESSA PATEL EXP COSIGNER: URGENCY: STATUS: COMPLETED microchip specialist: please mail the a copy of our clinic policies and procedures, warfarin drug information sheet, and document w/ amounts of vitamin K. Thank you. /ayla PATEL PHARMD CLINICAL PHARMACIST Signed: 04/04/2024 10:36 Receipt Acknowledged By: 04/04/2024 15:47 /garrick/ MEGHANA HWANG CLINICAL IT PROGRAMMER --- Original Document --- 04/04/24 CONSULT: [facility]: This telephone note was created in conjunction with the Anticoagulation Clinic/Certified Energy Manager chart review note. Please reference for full review. MR. BISMARK HAYWARD [address] [place] [id number] LUIS MIGUELNATE [facility]ANKSHA [facility] Purpose of visit: Initial anticoagulation clinic visit Time spent with patient during this visit: 30 minutes Summary of new patient intake form: [X] Contact information confirmed [ ] [place] gave verbal permission to: [X] Leave detailed VM [ ] Discuss anticoagulation management with: [X] Communicate results/information via letter [ ] Information in chart review note reviewed with the [ ] No additional information/updates provided [X] Additional information/clarification/update s provided by [ ] Bleeding - none [ ] Falls - none [ ] EtOH/Tobacco/Marijuana - rare alcohol; 1 beer 6 months [ ] Traveler - none [ ] Non-consistent diet; baseline Vitamin K intake (high intake may decrease effects of warfarin): Protein intake (high intake may decrease the effects of warfarin): consistent, normal intake Subjective/Objective information: Active and Recently Outpatient Medications (including Supplies): Active Outpatient Medications Status ========= 1) CHLORHEXIDINE GLUCONATE 0.12% MOUTHWASH RINSE 1 ACTIVE not using CAPFUL (15ML) BY MOUTH TWICE A DAY 2) CHOLECALCIF 25MCG (D3-1,000UNIT) TAB TAKE ONE TABLET ACTIVE taking BY MOUTH ONCE DAILY 3) DILTIAZEM (EQV-TIAZAC) 360MG 24HR CAP TAKE ONE ACTIVE taking CAPSULE BY MOUTH EVERY DAY FOR HEART RATE/BLOOD PRESSURE 4) FAMOTIDINE 20MG TAB TAKE ONE TABLET BY MOUTH TWICE A ACTIVE taking DAY FOR STOMACH ACID 5) HYDROCHLOROTHIAZIDE 12.5MG TAB TAKE ONE TABLET BY ACTIVE taking MOUTH EVERY MORNING TO REMOVE FLUID/CONTROL BLOOD PRESSURE 6) IBUPROFEN 600MG TAB TAKE ONE TABLET BY MOUTH THREE ACTIVE stopped TIMES DAILY NEEDED FOR PAIN 7) LAMOTRIGINE 100MG TAB TAKE THREE TABLETS BY MOUTH ACTIVE taking EVERY MORNING AND TAKE FOUR TABLETS EVERY EVENING ### 8) LEVOTHYROXINE NA (SYNTHROID) 125MCG TAB TAKE TWO ACTIVE taking TABLETS BY MOUTH ONCE EVERY MORNING FOR HYPOTHYROIDISM HALF-HOUR BEFORE FOOD INCREASE IN DOSE 9) LISINOPRIL 10MG TAB TAKE ONE TABLET BY MOUTH ONCE ACTIVE taking EVERY EVENING FOR HIGH BLOOD PRESSURE 10) MELATONIN 5MG CAP/TAB TAKE ONE CAP/TAB BY MOUTH EVERY ACTIVE PRN DAY FOR SLEEP 11) METOPROLOL SUCCINATE 25MG SA TAB TAKE ONE TABLET BY ACTIVE taking MOUTH TWICE A DAY FOR ATRIAL FIBRILLATION FOR RATE CONTROL 12) PHENYTOIN NA (DILANTIN) 100MG SA CAP TAKE ONE CAPSULE ACTIVE taking BY MOUTH EVERY MORNING AND TAKE TWO CAPSULES EVERY EVENING TO PREVENT SEIZURES NEEDS DILANTIN BRAND 13) SILDENAFIL CITRATE 100MG TAB TAKE ONE TABLET BY MOUTH ACTIVE PRN NEEDED MAX USE ONCE IN 24 HOUR PERIOD 14) TRAZODONE HCL 50MG TAB TAKE ONE TABLET BY MOUTH AT ACTIVE PRN BEDTIME FOR INSOMNIA MAY TAKE ONE ADDITIONAL [...] ACTIVE - old rx TWICE A DAY no OTCs 17 Total Medications No Active Remote Medications for this patient [ ] Nutritional supplements/OTCs: [ ] Medication reconciliation was unable to be performed due to: [X] Medication reconciliation completed, any differences are listed above. Factors affecting anticoagulation: Activity change none Medication change none Diet/Vitamin K change none Alcohol/Tobacco change none Acute illness none Medication compliance denies missing doses Bleeding/thromboembolic complications: Bruising denies Gingival bleeding denies Nosebleeds denies Hematuria denies Blood in stools denies Signs of CVA/TIA denies LE swelling/pain denies Shortness of breath denies Other side effects: denies Falls/injuries denies Tests/Procedures DCCV 04/11/24? /ablation in the future? Other issues: none reported Patient warfarin education: Provided with [facility] booklet on blood thinners [X] vitamin K [X] The following information was discussed with patient and/or caregiver: [X] Purpose of medication [X] How to take medication, missed doses, importance of glucose and syrup weigher [X] INR goals and importance [X] Precautions [X] Interactions with alcohol, diet, medications, activity [X] Signs/symptoms of bleeding and appropriate action [X] Signs of stroke (FAST) and appropriate action [X] Signs of worsening leg swelling, pain, warmth, and erythema [X] How to contact clinic [X] Procedures for distance management of INR Patient/caregiver is able to verbalize comprehension of information and is encouraged to call or return with questions or concerns Indication for anticoagulation: Atrial Fibrillation INR Goal: 2-3 Anticoagulation initiated: 04/02/24 Duration [...] afib. Baseline labs shows INR at 1.2. INR Goal 2-3. He is not eligible to take a DOAC d/t a critical DDI w/ Phenytoin. CBC WNL. Duration of warfarin TBD by cardio. Initial cardio appt scheduled for 04/21/24. does not have questions at this time about the warfarin, management, or our clinic processes. Plan: continue current regimen for now w/ close monitoring Warfarin dose: 5mg daily Future follow-up: Recheck PT/INR on 04/07/[address] [facility], already scheduled [P]RECIPIENT OF EDUCATION: P = Patient F = Family/significant other B = Both Patient and Family O = Other (list): [1] EVALUATION OF READINESS TO LEARN 1 = Ready 2 = Not ready: cognitive 3 = Not ready: physical 4 = Not ready: emotional [1] EDUCATIONAL EVALUATION 1 = Good: Independent understanding 2 = Fair: Partial understanding 3 = Poor: Needs complete reinforcement BARRIERS TO LEARNING identified: [X] None identified [ ] Angry [ ] Communication Impaired [ ] Language [ ] Anxious [ ] Cultural/Jain Beliefs [ ] Literacy [ ] Hearing Impaired [ ] Lack of family support [ ] Overwhelmed [ ] Homeless [ ] Not motivated at this time [ ] State of Denial [ ] Memory deficit [ ] Unable to concentrate [ ] Visually Impaired [ ] Other: [X] TC to patient/spouse/caregiver who was able to verbalize understanding of above instructions. [ ] Voice mail left for patient with instructions [X] Written instructions mailed to patient [ ] Rx ordered [ ] Rx/Lab orders faxed to: /garrick/ VANESSA PATEL PHARMD CLINICAL PHARMACIST Signed: 04/04/2024 10:35 VANESSA PATEL [facility] Apr 04, 2024 07:37 AM CONSULT: LOCAL TITLE: CONSULT: [facility] STANDARD TITLE: CONSULT DATE OF NOTE: APR 04, 2024@07:37 ENTRY DATE: APR 04, 2024@07:37:23 AUTHOR: VANESSA PATEL EXP COSIGNER: URGENCY: STATUS: COMPLETED CONSULT: [facility] Has ADDENDA This telephone note was created in conjunction with the Anticoagulation Clinic/Certified Energy Manager chart review note. Please reference for full review. MR. BISMARK HAYWARD [address] [place] [id number] NATE BOLANOS [facility] Purpose of visit: Initial anticoagulation clinic visit Time spent with patient during this visit: 30 minutes Summary of new patient intake form: [X] Contact information confirmed [ ] gave verbal permission to: [X] Leave detailed VM [ ] Discuss anticoagulation management with: [X] Communicate results/information via letter [ ] Information in chart review note reviewed with the [ ] No additional information/updates provided [X] Additional information/clarification/update s provided by [ ] Bleeding - none [ ] Falls - none [ ] EtOH/Tobacco/Marijuana - rare alcohol; 1 beer 6 months [ ] Traveler - none [ ] Non-consistent diet; baseline Vitamin K intake (high intake may decrease effects of warfarin): Protein intake (high intake may decrease the effects of warfarin): consistent, normal intake Subjective/Objective information: Active and Recently Outpatient Medications (including Supplies): Active Outpatient Medications Status ========= 1) CHLORHEXIDINE GLUCONATE 0.12% MOUTHWASH RINSE 1 ACTIVE not using CAPFUL (15ML) BY MOUTH TWICE A DAY 2) CHOLECALCIF 25MCG (D3-1,000UNIT) TAB TAKE ONE TABLET ACTIVE taking BY MOUTH ONCE DAILY 3) DILTIAZEM (EQV-TIAZAC) 360MG 24HR CAP TAKE ONE ACTIVE taking CAPSULE BY MOUTH EVERY DAY FOR HEART RATE/BLOOD PRESSURE 4) FAMOTIDINE 20MG TAB TAKE ONE TABLET BY MOUTH TWICE A ACTIVE taking DAY FOR STOMACH ACID 5) HYDROCHLOROTHIAZIDE 12.5MG TAB TAKE ONE TABLET BY ACTIVE taking MOUTH EVERY MORNING TO REMOVE FLUID/CONTROL BLOOD PRESSURE 6) IBUPROFEN 600MG TAB TAKE ONE TABLET BY MOUTH THREE ACTIVE stopped TIMES DAILY NEEDED FOR PAIN 7) LAMOTRIGINE 100MG TAB TAKE THREE TABLETS BY MOUTH ACTIVE taking EVERY MORNING AND TAKE FOUR TABLETS EVERY EVENING ### 8) LEVOTHYROXINE NA (SYNTHROID) 125MCG TAB TAKE TWO ACTIVE taking TABLETS BY MOUTH ONCE EVERY MORNING FOR HYPOTHYROIDISM HALF-HOUR BEFORE FOOD INCREASE IN DOSE 9) LISINOPRIL 10MG TAB TAKE ONE TABLET BY MOUTH ONCE ACTIVE taking EVERY EVENING FOR HIGH BLOOD PRESSURE 10) MELATONIN 5MG CAP/TAB TAKE ONE CAP/TAB BY MOUTH EVERY ACTIVE PRN DAY FOR SLEEP 11) METOPROLOL SUCCINATE 25MG SA TAB TAKE ONE TABLET BY ACTIVE taking MOUTH TWICE A DAY FOR ATRIAL FIBRILLATION FOR RATE CONTROL 12) PHENYTOIN NA (DILANTIN) 100MG SA CAP TAKE ONE CAPSULE ACTIVE taking BY MOUTH EVERY MORNING AND TAKE TWO CAPSULES EVERY EVENING TO PREVENT SEIZURES NEEDS DILANTIN BRAND 13) SILDENAFIL CITRATE 100MG TAB TAKE ONE TABLET BY MOUTH ACTIVE PRN NEEDED MAX USE ONCE IN 24 HOUR PERIOD 14) TRAZODONE HCL 50MG TAB TAKE ONE TABLET BY MOUTH AT ACTIVE PRN BEDTIME FOR INSOMNIA MAY TAKE ONE ADDITIONAL [...] ACTIVE - old rx TWICE A DAY no OTCs 17 Total Medications No Active Remote Medications for this patient [ ] Nutritional supplements/OTCs: [ ] Medication reconciliation was unable to be performed due to: [X] Medication reconciliation completed, any differences are listed above. Factors affecting anticoagulation: Activity change none Medication change none Diet/Vitamin K change none Alcohol/Tobacco change none Acute illness none Medication compliance denies missing doses Bleeding/thromboembolic complications: Bruising denies Gingival bleeding denies Nosebleeds denies Hematuria denies Blood in stools denies Signs of CVA/TIA denies LE swelling/pain denies Shortness of breath denies Other side effects: denies Falls/injuries denies Tests/Procedures DCCV 04/11/24? /ablation in the future? Other issues: none reported Patient warfarin education: Provided with [facility] booklet on blood thinners [X] vitamin K [X] The following information was discussed with patient and/or caregiver: [X] Purpose of medication [X] How to take medication, missed doses, importance of glucose and syrup weigher [X] INR goals and importance [X] Precautions [X] Interactions with alcohol, diet, medications, activity [X] Signs/symptoms of bleeding and appropriate action [X] Signs of stroke (FAST) and appropriate action [X] Signs of worsening leg swelling, pain, warmth, and erythema [X] How to contact clinic [X] Procedures for distance management of INR Patient/caregiver is able to verbalize comprehension of information and is encouraged to call or return with questions or concerns Indication for anticoagulation: Atrial Fibrillation INR Goal: 2-3 Anticoagulation initiated: 04/02/24 Duration [...] afib. Baseline labs shows INR at 1.2. INR Goal 2-3. He is not eligible to take a DOAC d/t a critical DDI w/ Phenytoin. CBC WNL. Duration of warfarin TBD by cardio. Initial cardio appt scheduled for 04/21/24. does not have questions at this time about the warfarin, management, or our clinic processes. Plan: continue current regimen for now w/ close monitoring Warfarin dose: 5mg daily Future follow-up: Recheck PT/INR on 04/07/[address] [facility], already scheduled [P]RECIPIENT OF EDUCATION: P = Patient F = Family/significant other B = Both Patient and Family O = Other (list): [1] EVALUATION OF READINESS TO LEARN 1 = Ready 2 = Not ready: cognitive 3 = Not ready: physical 4 = Not ready: emotional [1] EDUCATIONAL EVALUATION 1 = Good: Independent understanding 2 = Fair: Partial understanding 3 = Poor: Needs complete reinforcement BARRIERS TO LEARNING identified: [X] None identified [ ] Angry [ ] Communication Impaired [ ] Language [ ] Anxious [ ] Cultural/Jain Beliefs [ ] Literacy [ ] Hearing Impaired [ ] Lack of family support [ ] Overwhelmed [ ] Homeless [ ] Not motivated at this time [ ] State of Denial [ ] Memory deficit [ ] Unable to concentrate [ ] Visually Impaired [ ] Other: [X] TC to patient/spouse/caregiver who was able to verbalize understanding of above instructions. [ ] Voice mail left for patient with instructions [X] Written instructions mailed to patient [ ] Rx ordered [ ] Rx/Lab orders faxed to: /ayla PATEL PHARMD CLINICAL PHARMACIST Signed: 04/04/2024 10:35 04/04/2024 ADDENDUM STATUS: COMPLETED microchip specialist: please mail the a copy of our clinic policies and procedures, warfarin drug information sheet, and document w/ amounts of vitamin K. Thank you. /ayla PATEL PHARMD CLINICAL PHARMACIST Signed: 04/04/2024 10:36 Receipt Acknowledged By: * AWAITING SIGNATURE * MEGHANA HWANG [place] [facility]
--- OUTSIDE RECORDS SUMMARY | 2024-04-14 13:57 | XMS_ITS | Encounter Summary ---
Author Name [facility] [place] [facility] [place] Address [address] [place] [address] Care Team Providers Care Entry Level Accounting Clerk Name Role Phone NATE BOLANOS Primary Care Provider Unavailabl e Selected Encounter This section includes the information on record at [place] for the Encounter. Date/Time Encounter Type Encounter Description Reason Provider Source Mar 11, 2024 09:30 AM OFF/OP CNSLTJ NEW/EST MOD 40 VASCULAR SURGERY ICD-10-CM I83.12 Varicose veins of left lower extremity with inflammation CASCADDKRISTINA,ZULEIKA XIS L IHE Encounter Template Text not used by [place] Assessments - Encounter Diagnoses This section includes the primary and secondary diagnoses documented for the Encounter. Date/Time Primary/Secondary Diagnosis Diagnosis Name Provider Source Mar 12, 2024 05:08 PM PRIMARY Varicose veins of left lower extremity with inflammation BRIAN SARKAR IS L [place] [facility] Mar 12, 2024 05:08 PM SECONDARY Cardiomyopathy, unspecified BRIAN SARKAR IS L [place] [facility] Mar 12, 2024 05:08 PM SECONDARY Nonrheumatic mitral valve disorder, unspecified CASCCURTBRIAN IS L [place] [facility] Mar 12, 2024 05:08 PM SECONDARY Unspecified atrial fibrillation CASCADDEN,BRIAN BOWEN [facility] Plan of Treatment: Future Appointments (+ 6 months) and Future Tests (+/- 45 days) The Plan of Treatment section includes future care activities for the patient from all [place] [facility]. This section includes future appointments and future orders which are active, pending or scheduled. Future Appointments This section includes appointments that were scheduled to occur 6 months from the date of the Encounter, up to a maximum of 20 appointments. The data comes from all [place] treatment facilities. Appointment Date/Time Appointment Type Appointme nt Facility Name Apr 02, 2024 12:30 PM [facility]ORY [place] [facility] Apr 04, 2024 10:00 AM [facility] [place] [facility] Apr 07, 2024 09:45 AM AMBULATORY - NONE [facility] Apr 08, 2024 11:15 AM [place] [place] [facility] Apr 09, 2024 10:30 AM AMBULATORY - SURGERY [place] [facility] Apr 10, 2024 09:15 AM AMBULATORY - SURG[place] [facility] Apr 10, 2024 09:30 AM [place] [facility] Apr 10, 2024 12:00 PM AMBULATORY - [place]GERY [place] [facility] Apr 10, 2024 01:00 PM [place] [place] [facility] Apr 14, 2024 07:00 AM [place]ORY - [place]ONE [place] [facility] Apr 15, 2024 10:45 AM [place] [facility] Apr 21, 2024 11:00 AM [place]ORY [place] [facility] Jun 11, 2024 09:00 AM [facility]ORY [place] [facility] Jun 18, 2024 09:00 AM [facility] [place] [facility] Jun 25, 2024 09:00 AM [place]ORY [place] [facility] Jul 02, 2024 09:00 AM [place]ATORY [place] [facility] Jul 09, 2024 09:00 AM [facility]ATORY [place] [facility] Jul 16, 2024 09:00 AM [facility] [place] [facility] Jul 23, 2024 09:00 AM [facility] [place] [facility] Jul 30, 2024 09:00 AM [facility] [place] [place] [facility] Active, Pending, and Scheduled Orders This section includes a listing of several types of active, pending, and scheduled orders, including clinic medications orders, diagnostic test orders, procedure orders and consult orders; where the start date of the order is 45 days before the date of the Encounter or 45 days after the date of theEncounter. The data comes from all [place] treatment facilities. Test Date/Time Test Type Test Details Facility Name Apr 11, 2024 08:29 AM Consult Order [facility] (ANTI-COAG) Cons Thermal Technician's Choice [facility] Apr 14, 2024 12:00 AM Laboratory - Chemi stry Order CBC NO DIFF BLOOD(LAV-EDTA-WB) SP [facility] Apr 14, 2024 12:00 AM Laboratory - Chemi stry Order PT&INR BLOOD(BLUE-NA CIT) PLASMA [facility] Lab Results: +/- 30 days of [...] Specimen Type: PLASMA Comment: Tests performed on [email or web address] ACL TOP 350 SN [id number] (405) Criticals repeated,call ed to,read back by: ARUN SILVERIO 04/10/24 AT 12:44 PM Ordering Provider: VANESSA PATEL Report Released Date/Time: Apr 08, 2024 12:40 PM Reporting Lab: [facility] [address] [place] [address] Performing Lab: [facility] [address] [address] INR 7.3 {ratio} HH 0.9-1.1 PT 75.7 s H 9.4-12.5 Apr 10, 2024 12:05 PM [facility] P4 GLU,BUN,CREAT,LYTES,CA Specimen Type: PLASMA Comment: , Tests performed on DaisyBill SN:[id number] (405) Ordering Provider: Maribel MENDEZ Report Released Date/Time: Apr 07, 2024 03:31 PM Reporting Lab: [facility] [address] [address] Performing Lab: [facility] [address] [address] UREA NITROGEN 21 mg/dL 7-25 SODIUM 135 mmol/L 135-145 POTASSIUM 4.1 mmol/L 3.5-5.0 CHLORIDE 102 mmol/L 100-110 CARBON DIOXIDE 27 mmol/L 20-30 ANION GAP 6 4-16 GLUCOSE 92 mg/dL 65-100 CREATININE 0.93 mg/dL 0.50-1.50 CALCIUM 9.5 mg/dL 8.5-10.5 eGFR(CKD-EPI 2020) >90 See_Comment Apr 07, 2024 10:26 AM [facility] PT&INR Specimen Type: PLASMA Comment: Tests performed on [place] ACL TOP 350 SN [id number] (405) Ordering Provider: LOS GOMEZ Report Released Date/Time: Apr 02, 2024 03:19 PM Reporting Lab: [facility] [address] [address] Performing Lab: [facility] [address] [address] INR 3.5 {ratio} H 0.9-1.1 PT 37.5 s H 9.4-12.5 Apr 02, 2024 03:30 PM [facility] PT&INR Specimen Type: PLASMA Comment: Tests performed on [place] ACL TOP 350 SN [id number] (405) Ordering Provider: LOS GOMEZ Report Released Date/Time: Apr 02, 2024 03:17 PM Reporting Lab: [facility] [address] [address] Performing Lab: [facility] [address] [address] INR 1.2 {ratio} H 0.9-1.1 PT 12.9 s H 9.4-12.5 Apr 02, 2024 03:30 PM [facility] CBC NO DIFF Specimen Type: BLOOD No comment entered. Ordering Provider: LOS GOMEZ Report Released Date/Time: Apr 02, 2024 03:17 PM Reporting Lab: [facility] [address] [address] Performing Lab: [facility] [address] [address] WBC 6.1 10*3/uL 4.5-11.0 RBC 4.77 10*6/uL [...] Height Weight Body Mass Index Source Mar 11, 2024 09:14 AM 97.5 104 157/107 18 98 [facility] Advance Directives: All historical and current Section Date Range: From patient's date of to the date document was created. This section includes ALL of a patient's completed or amended [place] Advance and Rescinded Directives. The entries below indicate that a directive exists for the patient, but an actual copy is not included with this document. The data comes from all [place] facilities. Date Advance Directives Provider Source May 18, 2021 ADVANCE DIRECTIVE RICHARD DAN [facility] Encounter Notes: All associated encounter notes This section contains the clinical notes associated to the Encounter. Date/Time Encounter Note(s) Provider Source Mar 11, 2024 09:36 AM VASCULAR SURGERY CONSULT: LOCAL TITLE: CONSULT VASCULAR SURGERY STANDARD TITLE: VASCULAR SURGERY CONSULT DATE OF NOTE: MAR 11, 2024@09:36 ENTRY DATE: MAR 11, 2024@09:36:29 AUTHOR: ERNESTO SARKAR EXP COSIGNER: URGENCY: STATUS: COMPLETED CONSULT VASCULAR SURGERY Has ADDENDA Current PC Provider: NATE BOLANOS Current PC Team: LIT PACT [facility] Current Pat. Status: Outpatient UCID: [id number] Primary Eligibility: SC LESS THAN 50%(VERIFIED) Patient Type: SC OEF/OIF: NO Service Connection/Rated Disabilities [place] Percent: DATA NOT FOUND Rated Disabilities: SKIN CONDITION (0%) HYPOTHYROIDISM (0%) Order Information To Service: VASCULAR SURGERY OUTPATIENT From Service: LIT-V01 [facility] PACT 08 PT Requesting Provider: NATE BOLANOS Service is to be rendered on an OUTPATIENT basis Place: Thermal Technician's choice Urgency: Routine Clinically Ind. Date: Jan 08, 2024 DST ID: Orderable Item: VASCULAR SURGERY OUTPATIENT Consult: Consult Request Provisional Diagnosis: Varicose Veins of other specified sites(ICD-10-CM I86.8) Reason For Request: Type of Service: Evaluation and Treatment (If diagnostic or treatment option is selected a procedure entry is required) Chief Complaint: varicose veins painful r>l Patient History / Clinical Findings / Diagnosis (Co-Morbidities): varicose veins painful r>l Where would the [place] prefer to be cared for? [place] ([facility]) Inter-facility Information This is not an inter-facility consult request. Consulted by: NATE BOLANOS Referring diagnosis: Varicose Veins of other specified sites Consult date: 03/11/24 Findings: 48 y/o male w/PMHx as below presenting to VS for evaluation of symptomatic R>L LE varicosities. He reports RLE varicosities have been present for several years, slowly enlarging in size and causing itching/throbbing w/varying RLE edema. He denies significant skin discoloration or open wounds. Reports remote prior episode of thrombophlebitis, none recently. Has dedicated compression from PT, wears thigh highs regularly. Attempts to elevate LE when working, otherwise stands for much for the day. Denies LE surgical intervention. Takes ASA daily. Denies blood thinning agents or being followed by Cardiology for AF, Hx cardiomyopathy. AF is intermittent and has been present for approx 20 years per his report. Notes mildly symptomatic when occurs w/mild SOB. (+) family Hx of varicose veins. Nonsmoker. Rare ETOH. Denies illicit drug use. PMHx: Active Problem list: Code Description M54.50 Low back pain ([facility] [id number]) I83.12 Varicose veins ([facility] [id number]) M25.561 Pain of right knee joint ([facility] [id number]) I10. Essential hypertension ([facility] [id number]) G40.909 Epilepsy ([facility] [id number]) I48.91 AF- Atrial Fibrillation ([facility] [id number]) I42.9 Cardiomyopathy ([facility] [id number]) I34.9 Mitral valve regurgitation ([facility] [id number]) G47.33 Obstructive sleep apnea syndrome ([facility] [id number]) K21.9 GERD - Gastro-Esophageal Reflux Disease ([facility] [id number]) F33.0 Depressive disorder ([facility] [id number]) A63.0 Genital warts ([facility] [id number]) V17.0 Family History of Psychiatric Condition (ICD-9-CM V17.0) V18.0 Family History of Diabetes Mellitus (ICD-9-CM V18.0) PSHx: Cholecystectomy RIHR as child Social Hx: The patient lives in [place], [place]. Smoking: Denies ETOH: Rare use Illicit: Denies FHx: (+) mother w/VV Meds: Active Outpatient Medications (excluding Supplies): Active Outpatient [...] BY MOUTH EVERY ACTIVE DAY FOR SLEEP 12) PHENYTOIN NA (DILANTIN) [...] ACTIVE TWICE A DAY 16 Total Medications Allergies: Patient has answered NKA Physical Exam: Alert and oriented x3. Nonfocal. Ambulates easily w/o assistance. Ext: BLE WWP, motorsensory intact. Palpable pedal pulses bilaterally. No open wounds, trace LE edema. (+) RLE bulging varicosities medial thigh and medial lower leg. Nontender, no overlying skin changes. Few, mild LLE varicosities w/o overlying skin changes. Nontender. VS: BP: 157/107 (03/11/2024 09:14) Pulse: 104 (03/11/2024 09:14) Temp: 97.5 F [36.4 C] (03/11/2024 09:14) Resp: 18 (03/11/2024 09:14) HT(in): 70 in [177.8 cm] (12/31/2023 09:28) WT(lbs):264.6 lb [120.02 kg] (12/31/2023 09:28) 03/11/24 @ 0914 PULSE OXIMETRY: 98 Pain score: 3 (03/05/2024 12:40) Studies: Procedure: Lower Extremity Venous Duplex Exam Registered Lacrosse Player: YAEL MAY Ordering Provider: Ernesto Sarkar Indication for exam: Eval for venous insufficiency, symptomatic varicosities bilaterally Findings: RIGHT: Patent great saphenous vein with reflux at the sapheno-femoral junction and mid to distal calf > 4.3seconds. Patent anterior saphenous vein with reflux. Patent small saphenous vein however vein is very small and difficult to follow; unable to determine if there is reflux. Patent common femoral vein with reflux > 1.2. Patent popliteal, femoral vein in the thigh and posterior tibial veins with no identifiable significant reflux. vein with spontaneous No evidence of deep(femoral popliteal) vein thrombus. Great saphenous vein is partially incompressible with sclerotic vein wall in the distal calf, otherwise no evidence of superficial vein thrombus. Varicosity associated with the anterior saphenous vein in the high thigh at /near the saphenofemoral junctiopn. Multiple varicosities associated with the great saphenous vein throughout the leg and calf. LEFT: Patent great saphenous vein with reflux mid thigh to ankle > 4.7seconds. Patent small saphenous vein with no identifiable reflux. Patent common femoral, femoral vein in the thigh, popliteal and posterior tibial veinswith no identifiable reflux. No evidence of deep(femoral popliteal) or superficial vein thrombus. Varicosities associated with the great saphenous vein mid thigh into the calf Procedure: LOWER EXTREMITY ARTERIAL STUDY Registered Lacrosse Player: YAEL MAY Segmental Pressures (SEG) Ordering Provider: Ernesto Sarkar INDICATIONS FOR STUDY: leg pain PERTINENT HISTORY: DIABETES:NO VASC OPERATIONS: SYSTOLIC BLOOD PRESSURES (mmHg.): Brach Dorsal Pedal Post Tibial Right 126 159 143 Left 126 164 147 RATIOS of systolic pressures compared to brachial pressure: Right DP:1.3 PT:1.1 Left DP:1.3 PT:1.2 DOPPLER WAVEFORMS: Dorsal Pedal Post Tibial Right Triphasic Triphasic Left Triphasic Triphasic INTERPRETATION: RIGHT: No significant lower extremity arterial occlusive disease identified at rest. Normal ankle/brachial pressure ratios and Doppler waveforms LEFT: No significant lower extremity arterial occlusive disease identified at rest. Normal ankle/brachial pressure ratios and Doppler waveforms Plan: 48 y/o male w/moderately symptomatic RLE varicosities in the setting of venous insufficiency w/CFV and superficial valvular incompetence. Patient interested in surgical intervention as he has cont'd symptoms despite dedicated compression. Given clinical Hx, rec'd Cardiology consultation for establishment of care, anticoagulation and further workup as appropriate, and preop risk assessment after which RTC to discuss surgical intervention w/RLE GSV stripping/ligation and stab phlebectomies. Continue ASA and compression (renewed approx 2 months ago). Elevation when resting. For acute clinical concerns, recommend patient present to the closest ED for evaluation. Greater than 50% of this session was dedicated to counseling and coordination of care. Yes Time spent with patient (minutes): 30 Thank-you for the consultation. /garrick/ ERNESTO SARKAR Physician [employer] Special Education Teacher Signed: 03/12/2024 17:08 04/02/2024 ADDENDUM STATUS: COMPLETED Received notification from Cardiology that patient was seen and found to be in AF w/RVR w/planned Tx for that prior to elective surgical intervention. Patient would still like to keep upcoming VS appt on 04/10 to discuss surgical intervention rather than R/S for after AF treatment/management. Will keep upcoming appt as requested to discuss surgical intervention after cleared by Cardiology. /ayla SARKAR Physician [employer] Special Education Teacher Signed: 04/02/2024 16:21 ERNESTO SARKAR [facility]
--- OUTSIDE RECORDS SUMMARY | 2024-04-14 13:57 | XMS_ITS | Encounter Summary ---
Author Name [facility] [place] Organization [facility] [place] Address [address] [place] [address] Care Team Providers Care Senior Sales Operations Manager Name Role Phone LUIS MIGUELNATE Primary [facility] Selected Encounter This section includes the information on record at [place] for the Encounter. Date/Time Encounter Type Encounter Description Reason Provider Source Apr 08, 2024 11:15 AM MTMS BY PHARM EST 15 MIN TELEPHONE/ANCILLA BRAULIO ICD-10-CM I48.91 Unspecified atrial fibrillation VANESSA PATEL Encounter Template Text not used by [place] Assessments - Encounter Diagnoses This section includes the primary and secondary diagnoses documented for the Encounter. Date/Time Primary/Secondary Diagnosis Diagnosis Name Provider Source Apr 08, 2024 11:15 AM PRIMARY Unspecified atrial fibrillation VANESSA PATEL [facility] Plan of Treatment: Future Appointments (+ 6 months) and Future Tests (+/- 45 days) The Plan of Treatment section includes future care activities for the patient from all [place] treatmentfacilities. This section includes future appointments and future orders which are active, pending or scheduled. Future Appointments This section includes appointments that were scheduled to occur 6 months from the date of the Encounter, up to a maximum of 20 appointments. The data comes from all [place] treatment facilities. Appointment Date/Time Appointment Type Appointme nt Facility Name Apr 09, 2024 10:30 AM AMBULATORY - [place]GERY [place] [facility] Apr 10, 2024 09:15 AM AMBULATORY - SURGERY [place] Apr 10, 2024 09:30 AM [place]UL[place]ORY - NONE [place] [facility] Apr 10, 2024 12:00 PM AMBULATORY - SURGERY [facility] [facility] Apr 10, 2024 01:00 PM [place]ORY - [place]ICINE [place] [facility] Apr 14, 2024 07:00 AM AMBULATORY - NONE [place] [facility] Apr 15, 2024 10:45 AM [place]IC[place] [facility] Apr 21, 2024 11:00 AM [place]ORY - [place]ICINE [place] [facility] Jun 11, 2024 09:00 AM [place]ORY - [place]ICINE [place] [facility] Jun 18, 2024 09:00 AM [place]ORY - MEDICINE [place] [facility] Jun 25, 2024 09:00 AM [place]ORY - MEDICINE [place] [facility] Jul 02, 2024 09:00 AM [place]ORY - MEDICINE [place] [facility] Jul 09, 2024 09:00 AM [place] - [place]ICINE [place] [facility] Jul 16, 2024 09:00 AM [place] - MEDICINE [place] [facility] Jul 23, 2024 09:00 AM [place]ORY - MEDICINE [place] [facility] Jul 30, 2024 09:00 AM [place]ORY - MEDICINE [place] [facility] Aug 06, 2024 09:00 AM [place]ORY - MEDICINE [place] [facility] Aug 13, 2024 09:00 AM AMBULATORY - MEDICINE [place] [facility] 2024 09:00 AM AMBULATORY - MEDICINE [place] [facility] Aug 27, 2024 09:00 AM [place] [facility] Active, Pending, and Scheduled Orders This section includes a listing of several types of active, pending, and scheduled orders, including clinic medications orders, diagnostic test orders, procedure orders and consult orders; where the start date of the order is 45 days before the date of the Encounter or 45 days after the date of theEncounter. The data comes from all [place] treatment facilities. Test Date/Time Test Type Test Details Facility Name Apr 11, 2024 08:29 AM Consult Order [facility] (ANTI-COAG) Cons Radio Frequency Technician's Choice [facility] Apr 14, 2024 [...] Range Comment Apr 10, 2024 12:05 PM [facility] PT&INR Specimen Type: PLASMA Comment: Tests performed on ChatStat TOP 350 SN [id number]) Criticals repeated,call ed to,read back by: ARUN SILVERIO 04/10/24 AT 12:44 PM Ordering Provider: VANESSA PATEL Report Released Date/Time: Apr 08, 2024 12:40 PM Reporting Lab: [facility] [address] [facility] [address] Performing Lab: [facility] [address] [facility] [address] INR 7.3 {ratio} HH 0.9-1.1 PT 75.7 s H 9.4-12.5 Apr 10, 2024 12:05 PM [facility] P4 GLU,BUN,CREAT,LYTES,CA Specimen Type: PLASMA Comment: , Tests performed on [employer] Craven SN:[id number]) Ordering Provider: Maribel MENDEZ Report Released Date/Time: Apr 07, 2024 03:31 PM Reporting Lab: [facility] [address] [facility] [address] Performing Lab: [facility] [address] [facility] [address] UREA NITROGEN 21 mg/dL 7-25 SODIUM 135 mmol/L 135-145 POTASSIUM 4.1 mmol/L 3.5-5.0 CHLORIDE 102 mmol/L 100-110 CARBON DIOXIDE 27 mmol/L 20-30 ANION GAP 6 4-16 GLUCOSE 92 mg/dL 65-100 CREATININE 0.93 mg/dL 0.50-1.50 CALCIUM 9.5 mg/dL 8.5-10.5 eGFR(CKD-EPI 2020) >90 See_Comment Apr 07, 2024 10:26 AM [facility] PT&INR Specimen Type: PLASMA Comment: Tests performed on IL ACL TOP 350 SN [id number] ([id number]) Ordering Provider: LOS GOMEZ Report Released Date/Time: Apr 02, 2024 03:19 PM Reporting Lab: [facility] [address] [facility] [address] Performing Lab: [facility] [address] [facility] [address] INR 3.5 {ratio} H 0.9-1.1 PT 37.5 s H 9.4-12.5 Apr 02, 2024 03:30 PM [facility] CBC NO DIFF Specimen Type: BLOOD No comment entered. Ordering Provider: LOS GOMEZ Report Released Date/Time: Apr 02, 2024 03:17 PM Reporting [facility] [address] [facility] [address] Performing Lab: [facility] [address] [facility] [address] WBC 6.1 10*3/uL 4.5-11.0 RBC 4.77 10*6/uL 4.23-5.66 HGB 15.6 g/dL 12.8-17 HEMATOCRIT 44.9 39.2-50.4 MCV 94.1 fL 82-99 MCH 32.7 pg H 26.2-32.6 MCHC 34.7 g/dL 30.8-35.1 PLT 257 10*3/uL 140-360 MPV 8.9 fL L 9.2-12.4 RDW 14.1 12.0-16.0 Apr 02, 2024 03:30 PM [facility] PT&INR Specimen Type: PLASMA Comment: Tests performed on IL ACL TOP 350 SN [id number] ([id number]) Ordering Provider: LOS GOMEZ Report Released Date/Time: Apr 02, 2024 03:17 PM Reporting Lab: [facility] [address] [facility] [address] Performing Lab: [facility] [address] [facility] [address] INR 1.2 {ratio} H 0.9-1.1 PT 12.9 [...] this document. The data comes from all [place] facilities. Date Advance Directives Provider Source May 18, 2021 ADVANCE DIRECTIVE RICHARD DAN [facility] Encounter Notes: All associated encounter notes This section contains the clinical notes associated to the Encounter. Date/Time Encounter Note(s) Provider Source Apr 08, 2024 12:06 PM [facility] NOTE: LOCAL TITLE: Anticoagulation Clinic/[facility] STANDARD TITLE: E & M OF ANTICOAGULATION NOTE DATE OF NOTE: APR 08, 2024@12:06 ENTRY DATE: APR 08, 2024@12:06:45 AUTHOR: VANESSA PATEL COSIGNER: URGENCY: STATUS: COMPLETED Anticoagulation Clinic/[facility] Has ADDENDA MR. BISMARK HAYWARD [address] [place] [id number] Purpose of visit: Follow-up of anticoagulation Time spent with patient during this visit: 15 minutes Subjective/Objective information: Active and Recently Outpatient Medications [...] DAILY TO HELP PREVENT BLOOD CLOTS (ANTICOAGULATION) Inactive Outpatient Medications Status ========= 1) IBUPROFEN 600MG TAB TAKE ONE TABLET BY MOUTH THREE TIMES DAILY NEEDED FOR PAIN 16 Total Medications No Active Remote Medications for this patient [ ] Medication reconciliation completed, any differences are listed below: Factors affecting anticoagulation: Missed doses none Activity change none Medication change none Diet/Vitamin K change none Alcohol change none Acute illness none Side effects/bleeding complications: bruising denies gingival bleeding denies nosebleeds denies hematuria denies blood in stools denies other: denies Falls/injuries denies Tests/Procedures DCCV 04/10/24 Other issues: none reported Indication for anticoagulation: Atrial Fibrillation INR Goal: [...] 10:26) 5mg daily started on 04/03/24 25mg Assessment: Supratherapeutic anticoagulation w/o recent bleeding or thrombotic complications. He received 5 doses of 5mg daily prior to the first INR reading. Given the INR being elevated after only 5 days will plan on cutting back warfarin dose by 50%. INR Goal 2-3. He is not eligible to take a DOAC d/t a critical DDI w/ Phenytoin. CBC WNL. Duration of warfarin TBD by cardio. Initial cardio appt scheduled for 04/21/24. DCCV scheduled for 04/10/24. No reported changes to diet, activity, medications or the last couple of days. Warfarin taken as directed. No illness. Plan: DECREASE dose Warfarin dose: 2.5mg daily Future follow-up: Recheck PT/INR on 04/10/24 at [facility] w/ other appts Patient education: reviewed s/sx bleeding/thrombosis and ER precautions [X] TC to patient/spouse/caregiver who was able to verbalize understanding of above instructions. [ ] Voice mail left for patient with instructions [ ] Written instructions mailed to patient [ ] Rx ordered [ ] Rx/Lab orders faxed to: /garrick/ AVNESSA PATEL PHARMD CLINICAL PHARMACIST Signed: 04/08/2024 12:39 04/10/2024 ADDENDUM STATUS: COMPLETED Alerted to critical INR of 7.3. Marshall had DCCV procedure today. From inoculator note today: Supratherapeutic INR between 4.5 and 10 without clinically significant bleeding. Patient instructed to hold coumadin x 2 days. Will notify Anticoagulation Clinic for f/u INR early next week. Attempted to reach x 4 this afternoon with no answer. Left a voicemail to HOLD warfarin until INR check (plan would be to check level on Sunday). Left clinic callback number. Hydraulic Rubbish Compactor Mechanic did instruct to hold warfarin and no bleeding complications per note. Will try to reach again tomorrow. /garrick/ ARUN SILVERIO PHARMD PHARMACIST Signed: 04/10/2024 17:28 VANESSA PATEL [facility]
--- OUTSIDE RECORDS SUMMARY | 2024-04-14 13:57 | XMS_ITS | Encounter Summary ---
Author Name [facility] [place] Organization [place] Address [address] [place] [address] Care Team Providers Care Director Agency & Strategic Partnerships Name Role Phone LUIS MIGUELRUTHYNATE Primary Care Provider [facility] Selected Encounter This section includes the information on record at [place] for the Encounter. Date/Time Encounter Type Encounter Description Reason Provider Source Apr 10, 2024 01:00 PM CRITICAL CARE FIRST HOUR CARDIOLOGY ICD-10-CM I48.91 Unspecified atrial fibrillation DIMA BLANCHARD Attila Encounter Template Text not used by [place] Assessments - Encounter Diagnoses This section includes the primary and secondary diagnoses documented for the Encounter. Date/Time Primary/Secondary Diagnosis Diagnosis Name Provider Source Apr 10, 2024 02:27 PM PRIMARY Unspecified atrial fibrillation WILLIS BLANCHARD [facility] Apr 10, 2024 02:27 PM SECONDARY Cardiomyopathy, unspecified WILLIS BLANCHARD [facility] Apr 10, 2024 02:27 PM SECONDARY Essential (primary) hypertension WILLIS BLANCHARD [facility] Apr 10, 2024 02:27 PM SECONDARY Obstructive sleep apnea (adult) (pediatric) WILLIS BLANCHARD [facility] Plan of Treatment: Future Appointments (+ 6 months) and Future Tests (+/- 45 days) The Plan of Treatment section includes future care activities for the patient from all [place] treatmentfaatrium healthities. This section includes future appointments and future orders which are active, pending or scheduled. Future Appointments This section includes appointments that were scheduled to occur 6 months from the date of the Encounter, up to a maximum of 20 appointments. The data comes from all [place] treatment facilities. Appointment Date/Time Appointment Type Appointme nt Facility Name Apr 14, 2024 07:00 AM AM[facility]ULATORY - [place]ONE [place] [facility] Apr 15, 2024 10:45 AM [place] [facility] Apr 21, 2024 11:00 AM [place]IC[place] [facility] Jun 11, 2024 09:00 AM [place] - [place]IC[place] [facility] Jun 18, 2024 09:00 AM [place] - [place]IC[place] [facility] Jun 25, 2024 09:00 AM [place] - [place]ICINE [place] [facility] Jul 02, 2024 09:00 AM [place] - [place]IC[place] [facility] Jul 09, 2024 09:00 AM [place] [place]IC[place] [facility] Jul 16, 2024 09:00 AM [place]IC[place] [facility] Jul 23, 2024 09:00 AM [place] - [place]ICINE [place] [facility] Jul 30, 2024 09:00 AM [place] - [place]ICINE [place] [facility] Aug 06, 2024 09:00 AM [place] - [place]IC[place] [facility] Aug 13, 2024 09:00 AM [place] - [place]ICINE [place] [facility] 2024 09:00 AM [facility] - [place]ICINE [place] [facility] Aug 27, 2024 09:00 AM [place] - [place]ICINE [place] [facility] Sep 03, 2024 09:00 AM [place] - [place]ICINE [place] [facility] Sep 10, 2024 09:00 AM [place] - [place]ICINE [place] [facility] Oct 01, 2024 09:00 AM [place]ORY - [place]ICINE [place] [facility] Oct 08, 2024 09:00 AM AM[facility]ORY - [place]ICINE [place] [facility] Active, Pending, and Scheduled Orders This section includes a listing of several types of active, pending, and scheduled orders, including clinic medications orders, diagnostic test orders, procedure orders and consult orders; where the start date of the order is 45 days before the date of the Encounter or 45 days after the date of theEncounter. The data comes from all [place] treatment facilities. Test Date/Time Test Type Test Details Facility Name Apr 11, 2024 08:29 AM Consult Order [facility] (ANTI-COAG) Cons Audio Visual Collections Coordinator's Choice [facility] Apr 14, 2024 [...] Specimen Type: PLASMA Comment: Tests performed on [employer] ACL TOP 350 SN [id number] ([id number]) Criticals repeated,call ed to,read back by: ARUN SILVERIO 04/10/24 AT 12:44 PM Ordering Provider: VANESSA LAWRENCE Report Released Date/Time: Apr 08, 2024 12:40 PM Reporting Lab: [facility] [address] [facility] [address] Performing Lab: [facility] [address] [facility] [address] INR 7.3 {ratio} HH 0.9-1.1 PT 75.7 s H 9.4-12.5 Apr 10, 2024 12:05 PM [facility] P4 GLU,BUN,CREAT,LYTES,CA Specimen Type: PLASMA Comment: , Tests performed on [employer] Craven SN:[id number] ([id number]) Ordering Provider: Maribel SUAREZ Report Released Date/Time: Apr 07, 2024 03:31 PM Reporting Lab: [facility] [address] [facility] [address] Performing Lab: [facility] [address] [facility] [address] UREA NITROGEN 21 mg/dL 7-25 SODIUM 135 mmol/L 135-145 POTASSIUM 4.1 mmol/L 3.5-5.0 CHLORIDE 102 mmol/L 100-110 CARBON DIOXIDE 27 mmol/L 20-30 ANION GAP 6 4-16 GLUCOSE 92 mg/dL 65-100 CREATININE 0.93 mg/dL 0.50-1.50 CALCIUM 9.5 mg/dL 8.5-10.5 eGFR(CKD-EPI 2020) >90 See_Comment Apr 07, 2024 10:26 AM [facility] PT&INR Specimen Type: PLASMA Comment: Tests performed on IL ACL TOP 350 SN [id number] ([id number]) Ordering Provider: LOS GMOEZ Report Released Date/Time: Apr 02, 2024 03:19 PM Reporting Lab: [facility] [address] [facility] [address] Performing Lab: [facility] [address] [facility] [address] INR 3.5 {ratio} H 0.9-1.1 PT 37.5 s H 9.4-12.5 Apr 02, 2024 03:30 PM [facility] PT&INR Specimen Type: PLASMA Comment: Tests performed on IL ACL TOP 350 SN [id number] ([id number]) Ordering Provider: LOS GOMEZ Report Released Date/Time: Apr 02, 2024 03:17 PM Reporting Lab: [facility] [address] [facility] [address] Performing Lab: [facility] [address] [facility] [address] INR 1.2 {ratio} H 0.9-1.1 PT 12.9 s H 9.4-12.5 Apr 02, 2024 03:30 PM [facility] CBC NO DIFF Specimen Type: BLOOD No comment entered. Ordering Provider: LOS GOMEZ Report Released Date/Time: Apr 02, 2024 03:17 PM Reporting Lab: [facility] [address] [facility] [address] Performing Lab: [facility] [address] [facility] [address] WBC 6.1 10*3/uL 4.5-11.0 RBC 4.77 10*6/uL [...] 117/74 14 98 0 72 261.3 36 [facility] Apr 10, 2024 08:48 AM 96 76 142/96 16 98 0 [facility] Advance Directives: All historical and current Section Date Range: From patient's date of to the date document was created. This section includes ALL of a patient's completed or amended [place] Advance and Rescinded Directives. The entries below indicate that a directive exists for the patient, but an actual copy is not included with this document. The data comes from all [place] facilities. Date Advance Directives Provider Source May 18, 2021 ADVANCE DIRECTIVE RICHARD DAN [facility] Encounter Notes: All associated encounter notes This section contains the clinical notes associated to the Encounter. Date/Time Encounter Note(s) Provider Source Apr 10, 2024 03:21 PM CARDIOLOGY DIAGNOS TIC STUDY REPORT: LOCAL TITLE: Cardiology Echo Report (CP) STANDARD TITLE: CARDIOLOGY DIAGNOSTIC STUDY REPORT DATE OF NOTE: APR 10, 2024@15:21:30 ENTRY DATE: APR 10, 2024@15:21:30 AUTHOR: CLINICAL,DEVICE PRO EXP COSIGNER: URGENCY: STATUS: COMPLETED PROCEDURE SUMMARY CODE: Machine Resulted DATE/TIME PERFORMED: APR 10, 2024@13:31:2 DOCUMENT IN VISTA IMAGING SEE FULL REPORT IN VISTA IMAGING SIGNATURE NOT REQUIRED SEE SIGNATURE IN VISTA IMAGING (ISCV HAYDEN (CHRIS)) AUTO-INSTRUMENT DIAGNOSIS Procedure: CHRIS CHRIS Release Status: Released Off-Line Verified Date Verified: Apr 10, 2024@15:21:08 CP Order Number: [id number] +--+ +--+ Comprehensive Transesophageal Echo Report + + :Name: BISMARK HAYWARD Study Date: 04/10/2024 01:31 PM : : Patient Location: [facility] CHRIS DCCV G2RD : :: 1975 (M/d/yyyy) Gender: Male : :Age: 48 yrs : :Reason For Study: ROSA clearance : + + Technical Issues Limited transesophageal echo performed prior to electrical cardioversion. Limited views were obtained. ECG demonstrated atrial fibrillation. Left Ventricle The left ventricle is normal in size. Left ventricular systolic function is normal. Visually estimated ejection fraction = 55%. Right Ventricle The right ventricle is normal size. The right ventricular systolic function is normal. Atria No left atrial mass or thrombus visualized. No clot seen n the LA appendage. LA appendage velocity <20 cm/sec. No significant \E\ spontaneous echo contrast. Mitral Valve The mitral valve is normal in structure and function. Tricuspid Valve The tricuspid valve is normal in structure and function. Aortic Valve The aortic valve is tricuspid. The aortic valve is normal in structure and function. Pulmonic Valve The pulmonic valve is not well visualized. Interpretation Summary - Limited CHRIS to rule out atrial clot. - No left atrial or left atrial appendage thrombus was visualized. - The left ventricle is normal in size. Left ventricular systolic function is normal. Visually estimated ejection fraction \R\55%. - The right ventricle is normal size. The right ventricular systolic function is normal. - No prior study for comparison. Reading Physician:Willis Vieira MD on 04/10/2024 03:21 PM Willis Vieira MD 04/10/2024 03:21 PM Attending Compound Mixer Referring Physician: MICHEAL SUAREZ Performed By: Willis Vieira MD Administrative Closure: 04/10/2024 by: Clinical,Device Proxy Service CLINICAL,DEVICE PROXY SERVICE [facility] Apr 10, 2024 02:14 PM CARDIOLOGY PROCEDU RE NOTE: LOCAL TITLE: Cardiology Procedure Consult Note STANDARD TITLE: CARDIOLOGY PROCEDURE NOTE DATE OF NOTE: APR 10, 2024@14:14 ENTRY DATE: APR 10, 2024@14:14:45 AUTHOR: WILLIS BLANCHARD COSIGNER: URGENCY: STATUS: COMPLETED Cardiology Procedure: CHRIS-guided electrical cardioversion Indication: Afib Photograph Printer: Dr. Nugent Online Content Editor:Dr. Vieira Time-Out Checklist: Correct patient identity Yes Procedure to be performed Yes Site of the procedure, including laterality if applicable Yes Valid consent form, containing information consistent with paragraph Yes Procedure site has been marked appropriately and that the site of the wili is visible after prep and draping Yes Patient position Yes Pertinent medical images have been confirmed(by two members of the team) Correct medical implant(s) are available Appropriate antibiotic prophylaxis Availability of special equipment, if applicable; Accuaracy of the specimen labels if specimen collection is planned. NOTE:All unused specimen labels must be destroyed or removed from the procedure room at the completion of the invasive procedure and the patient exiting the procedure area. Informed consent was obtained by Dr. Nugent. Patient interviewed and examined. No significant findings. No new complaints since April 02 when seen in Cardiology clinic. Labs reviewed. Lytes and renal function normal. 04/02 INR 1.2 04/07 INR 3.5 04/10 INR 7.3 Anesthesiology present to administer anesthesia and to manage the airway. After the patient was appropriately anesthesized, the CHRIS probe was inserted without difficulty or apparent complication. Limited CHRIS performed to rule out left atrial and left atrial appendage clot. No LA or LA appendage clot was visualized. No significant spontaneous contrast. Doppler of ROSA <20 cm/sec. After a LA and LA appendage clot was ruled out, the patient underwent electrical cardioversion in the synchronous mode using an anteroposterior pad placement. The first attempt (200J) was unsuccessful. Pressure was applied using an external paddle and he converted to NSR on the second attempt with 200J. No complications. Post anesthesia monitoring and management per Anesthesiology and discharge per PACU protocol. Patient managed in Anticoagulation Clinic - will cc Vanessa Lawrence PharmD Supratherapeutic INR between 4.5 and 10 without clinically significant bleeding. Patient instructed to hold coumadin x 2 days. Will notify Anticoagulation Clinic for f/u INR early next week. Follow-up with Micheal Suarez MSN, PROFESSOR OF GEOLOGY on April 21 /garrick/ WILLIS VIEIRA MD STAFF MECHANICAL EQUIPMENT TEST ENGINEER Signed: 04/10/2024 14:31 Receipt Acknowledged By: 04/10/2024 16:33 /es/ ARUN SILVERIO PHARMD PHARMACIST for VANESSA LAWRENCE 04/11/2024 13:36 /garrick/ Micheal Suarez MSN, PROFESSOR OF GEOLOGY Nurse Practitioner, Cardiology LOWILLIS TAI [facility]
--- OUTSIDE RECORDS SUMMARY | 2024-04-14 13:57 | XMS_ITS | Encounter Summary ---
Author Name [facility] Organization [facility] [place] Address [address] [place] [address] Care Team Providers Care Human Resource Assistant Name Role Phone LUIS MIGUELNATE Primary Care Provider Unavailabl e Selected Encounter This section includes the information on record at [place] for the Encounter. Date/Time Encounter Type Encounter Description Reason Pro vider Source Mar 17, 2024 03:59 PM Outpatient Encounter ADMIN PAT ACTIVTIES (SANDEEPNONCT) [...] 02, 2024 12:30 PM AMBULATORY - MEDICINE [place] [facility] Apr 04, 2024 10:00 AM AMBULATORY - MEDICINE [place] [facility] Apr 07, 2024 09:45 AM AMBULATORY - NONE [facility] Apr 08, 2024 11:15 AM AMBULATORY - [place]IC[place] [facility] Apr 09, 2024 10:30 AM AMBULATORY - SURGERY [facility] Apr 10, 2024 09:15 AM AMBULATORY - SURGERY [facility]AN [facility] Apr 10, 2024 09:30 AM AMBULATORY - NONE [place] NONA ZABALA [facility] Apr 10, 2024 12:00 PM AMBULATORY - SURGERY [facility] Apr 10, 2024 01:00 PM AMBULATORY - MEDICINE [place] [facility] Apr 14, 2024 07:00 AM AMBULATORY - NONE [place] VJ [facility] Apr 15, 2024 10:45 AM AMBULATORY - MEDICINE [place] [facility] Apr 21, 2024 11:00 AM AMBULATORY - MEDICINE [place] [facility] Jun 11, 2024 09:00 AM AMBULATORY - MEDICINE [place] [facility] Jun 18, 2024 09:00 AM AMBULATORY - MEDICINE [place] [facility] Jun 25, 2024 09:00 AM AMBULATORY - MEDICINE [place] [facility] Jul 02, 2024 09:00 AM AMBULATORY - MEDICINE [place] [facility] Jul 09, 2024 09:00 AM AMBULATORY - MEDICINE [place] [facility] Jul 16, 2024 09:00 AM AMBULATORY - MEDICINE [place] [facility] Jul 23, 2024 09:00 AM AMBULATORY - MEDICINE [place] [facility] Jul 30, 2024 09:00 AM AMBULATORY - MEDICINE [place] [facility] Active, Pending, and Scheduled Orders This [...] Order [facility] ([facility]) Cons Ict Teacher's Choice [facility] Apr 14, 2024 12:00 AM Laboratory [...] Specimen Type: PLASMA Comment: Tests performed on [email or web address] ACL TOP 350 SN [id number] (405) Criticals repeated,call ed to,read back by: ARUN SILVERIO 04/10/24 AT 12:44 PM Ordering Provider: VANESSA PATEL Report Released Date/Time: Apr 08, 2024 12:40 PM Reporting Lab: [facility] [address] [facility] [address] Performing Lab: [facility] [address] [facility] [address] INR 7.3 {ratio} HH 0.9-1.1 PT 75.7 s H 9.4-12.5 Apr 10, 2024 12:05 PM [facility] P4 GLU,BUN,CREAT,LYTES,CA Specimen Type: PLASMA Comment: , Tests performed on [employer] Craven SN:[id number] (405) Ordering Provider: Maribel MENDEZ Report Released Date/Time: Apr 07, 2024 03:31 PM Reporting Lab: [facility] [address] [facility] [address] Performing Lab: [facility] [address] [facility] [address] UREA NITROGEN 21 mg/dL 7-25 SODIUM 135 [...] performed on [place] ACL TOP 350 SN [id number] (405) Ordering Provider: LOS GOMEZ Report Released Date/Time: Apr 02, 2024 03:19 PM Reporting Lab: [facility] [address] [facility] [address] Performing Lab: [place] [facility] [address] [facility] [address] INR 3.5 {ratio} H 0.9-1.1 PT 37.5 s H 9.4-12.5 Apr 02, 2024 03:30 PM [place] [facility] PT&INR Specimen Type: PLASMA Comment: Tests performed on [place] ACL TOP 350 SN [id number] (405) Ordering Provider: LOS GOMEZ Report Released Date/Time: Apr 02, 2024 03:17 PM Reporting Lab: [facility] [address] [facility] [address] Performing Lab: [facility] [address] [facility] [address] INR 1.2 {ratio} H 0.9-1.1 PT 12.9 s H 9.4-12.5 Apr 02, 2024 03:30 PM [facility] [facility] CBC NO DIFF Specimen Type: BLOOD No comment entered. Ordering Provider: LOS GOMEZ Report Released Date/Time: Apr 02, 2024 03:17 PM Reporting Lab: [facility] [facility] [address] [facility] [address] Performing Lab: [facility] [address] [facility] [address] WBC 6.1 10*3/uL 4.5-11.0 RBC 4.77 10*6/uL [...] Encounter. Date/Time Encounter Note(s) Provider Source Mar 17, 2024 03:59 PM LETTERS: LOCAL TITLE: LETTER TO PATIENT ATTEMPT TO CONTACT STANDARD TITLE: LETTERS DATE OF NOTE: MAR 17, 2024@15:59 ENTRY DATE: MAR 17, 2024@15:59:54 AUTHOR: JULIA MORTON EXP COSIGNER: URGENCY: STATUS: COMPLETED [facility] [address] [place] [address] MAR 17, 2024 BISMARK HAYWARD [address] [place] [address] Dear BISMARK HAYWARD, [facility] [place] is trying to reach you to schedule an appointment. If you have already been in contact with the clinic and scheduled an appointment, you may disregard this letter. If we do not hear from you within 14 days, we will assume you no longer desire an appointment. Please call one of the numbers provided below so that we may find a suitable date for you. Service: Cardiology Service - Cardiology Outpatient Direct: [phone] Ext: [phone] Toll Free: [phone] Ext: [phone] We look forward to hearing from you. Sincerely, Clinical Operations JULIA MORTON [facility]
--- OUTSIDE RECORDS SUMMARY | 2024-04-14 13:57 | XMS_ITS ---
[place] ANESTHESIA PRE/POST-OP CONSULT [facility] Encounter Summary Created on: April 14, 2024 BISMARK HAYWARD : 1975 Sex: Male Author Name [facility] [facility] [place] Organization [facility] [place] Address [address] [place] [address] Care Team Providers Care Bellhop Service Captain Name Role Phone NATE BOLANOS Primary Care Provider Unavailabl e Selected Encounter This section includes the information on record at [place] for the Encounter. Date/Time Encounter Type Encounter Description Reason Provider Source Apr 09, 2024 03:40 PM Outpatient Encounter ANESTHESIA PRE/POST-OP CONSULT ICD-10-CM I48.91 Unspecified atrial fibrillation JANET FINK IE C IHE Encounter Template Text not used by [place] Assessments - Encounter Diagnoses This section includes the primary and secondary diagnoses documented for the Encounter. Date/Time Primary/Secondary Diagnosis Diagnosis Name Provider Source Apr 09, 2024 03:49 PM PRIMARY Unspecified atrial fibrillation ALEKSMOISES E C [place] [facility] Apr 09, 2024 03:49 PM SECONDARY Cardiomyopathy, unspecified ALEKS,MOISES E C [facility] Apr 09, 2024 03:49 PM SECONDARY Epilepsy, unsp, not intractable, without status epilepticus ALESKMOISES E C [facility] Apr 09, 2024 03:49 PM SECONDARY Essential (primary) hypertension JANET FINKI E C [facility] Apr 09, 2024 03:49 PM SECONDARY Gastro-esophageal reflux disease without esophagitis MOISES FINK [facility] Apr 09, 2024 03:49 PM SECONDARY Hypothyroidism, unspecified ALEKS,MOISES E C [facility] Apr 09, 2024 03:49 PM SECONDARY Low back pain, unspecified ALEKS,MOISES Mondragon [facility] Apr 09, 2024 03:49 PM SECONDARY Major depressive disorder, recurrent, mild ALEKS,MOISES Mondragon [facility] Apr 09, 2024 03:49 PM SECONDARY Nonrheumatic mitral valve disorder, unspecified ALEKS,MOISES Mondragon [facility] Apr 09, 2024 03:49 PM SECONDARY Obstructive sleep apnea (adult) (pediatric) MOISES FINK [facility] Plan of Treatment: Future Appointments (+ 6 months) and Future Tests (+/- 45 days) The Plan of Treatment section includes future care activities for the patient from all [place] [facility]. This section includes future appointments and future [...] 09:15 AM AMBULATORY - SURGERY [place] [facility] Apr 10, 2024 09:30 AM AMBULATORY - NONE [place] VJ T [facility] Apr 10, 2024 12:00 PM AMBULATORY - SURGERY [place] [facility] Apr 10, 2024 01:00 PM AMBULATORY - MEDICINE [place] [facility] Apr 14, 2024 07:00 AM AMBULATORY - NONE [place] VJ J[place] [facility] Apr 15, 2024 10:45 AM AMBULATORY - MEDICINE [place] [facility] Apr 21, 2024 11:00 AM AMBULATORY - MEDICINE [place] [facility] Jun 11, 2024 09:00 AM AMBULATORY - MEDICINE [place] [facility] Jun 18, 2024 09:00 AM AMBULATORY - MEDICINE [place] [facility] Jun 25, 2024 09:00 AM AMBULATORY - MEDICINE [place] [facility] Jul 02, 2024 09:00 AM AMBULATORY - MEDICINE [place] [facility] T [facility] Jul 09, 2024 09:00 AM AMBULATORY - MEDICINE [place] [facility] Jul 16, 2024 09:00 AM AMBULATORY - MEDICINE [place] [facility] Jul 23, 2024 09:00 AM AMBULATORY - MEDICINE [place] [facility] Jul 30, 2024 09:00 AM AMBULATORY - MEDICINE [place] [facility] Aug 06, 2024 09:00 AM AMBULATORY - MEDICINE [place] [facility] Aug 13, 2024 09:00 AM AMBULATORY - MEDICINE [place] [facility] 2024 09:00 AM AMBULATORY - MEDICINE [place] [facility] Aug 27, 2024 09:00 AM AMBULATORY - MEDICINE [place] [facility] Sep 03, 2024 09:00 AM AMBULATORY - MEDICINE [place] [facility] Active, Pending, and Scheduled Orders This section [...] 2024 08:29 AM Consult Order [facility] ([facility]) Cons Business Continuity Consultant's Choice [facility] Apr 14, 2024 12:00 AM Laboratory - Chemi stry Order CBC NO DIFF BLOOD(LAV-EDTA-WB) SP [facility] Apr 14, 2024 12:00 AM Laboratory - Chemi stry Order PT&INR BLOOD(BLUE-NA CIT) PLASMA SP [facility] Lab Results: +/- 30 days of [...] Range Comment Apr 10, 2024 12:[address] [facility] PT&INR Specimen Type: PLASMA Comment: Tests performed on [place] ACL TOP 350 SN [id number] (405) Criticals repeated,call ed to,read back by: ARUN SILVERIO 04/10/24 AT 12:44 PM Ordering Provider: VANESSA PATEL Report Released Date/Time: Apr 08, 2024 12:40 PM Reporting Lab: [facility] [address] [facility] [address] Performing Lab: [facility] [address] [facility] [address] INR 7.3 {ratio} HH 0.9-1.1 PT 75.7 s H 9.4-12.5 Apr 10, 2024 12:05 PM [place] [facility] P4 GLU,BUN,CREAT,LYTES,CA Specimen Type: PLASMA Comment: , Tests performed on [employer]ven SN:[id number] (405) Ordering Provider: Maribel MENDEZ Report Released Date/Time: Apr 07, 2024 03:31 PM Reporting Lab: [facility] [address] [facility] [address] Performing Lab: [facility] [address] [facility] [address] UREA NITROGEN 21 mg/dL 7-25 SODIUM 135 mmol/L 135-145 POTASSIUM 4.1 mmol/L 3.5-5.0 CHLORIDE 102 mmol/L 100-110 CARBON DIOXIDE 27 mmol/L 20-30 ANION GAP 6 4-16 GLUCOSE 92 mg/dL 65-100 CREATININE 0.93 mg/dL 0.50-1.50 CALCIUM 9.5 mg/dL 8.5-10.5 eGFR(CKD-EPI 2020) >90 See_Comment Apr 07, 2024 10:26 AM [place] [facility] PT&INR Specimen Type: PLASMA Comment: Tests performed on [place] ACL TOP 350 SN [id number] (405) Ordering Provider: LOS GOMEZ Report Released Date/Time: Apr 02, 2024 03:19 PM Reporting Lab: [facility] [address] [facility] [address] Performing Lab: [facility] [address] [facility] [address] INR 3.5 {ratio} H 0.9-1.1 PT 37.5 s H 9.4-12.5 Apr 02, 2024 03:[address] [facility] PT&INR Specimen Type: PLASMA Comment: Tests performed on [place] ACL TOP 350 SN [id number] (405) Ordering Provider: LOS GOMEZ Report Released Date/Time: Apr 02, 2024 03:17 PM Reporting Lab: [facility] [address] [facility] [address] Performing Lab: [facility] [address] [facility] [address] INR 1.2 {ratio} H 0.9-1.1 PT 12.9 s H 9.4-12.5 Apr 02, 2024 03:[address] [facility] CBC NO DIFF Specimen Type: BLOOD No comment entered. Ordering Provider: LOS GOMEZ Report Released Date/Time: Apr 02, 2024 03:17 PM Reporting Lab: [facility] [address] [facility] [address] Performing Lab: [facility] [address] [facility] [address] WBC 6.1 10*3/uL 4.5-11.0 RBC 4.77 10*6/uL [...] May 18, [address] [facility] Encounter Notes: All associated encounter notes This section contains the clinical notes associated to the Encounter. Date/Time Encounter Note(s) Provider Source Apr 09, 2024 03:44 PM ANESTHESIOLOGY PRE OPERATIVE E & M NOTE: LOCAL TITLE: Pre Op Note/Anesthesia STANDARD TITLE: ANESTHESIOLOGY PRE OPERATIVE E & M NOTE DATE OF NOTE: APR 09, 2024@15:44 ENTRY DATE: APR 09, 2024@15:44:49 AUTHOR: REJI FINK EXP COSIGNER: URGENCY: STATUS: COMPLETED I. HISTORY PREOP DIAGNOSIS: A fib PROPOSED PROCEDURE: CHRIS, DCCV Age:48 Sex:MALE 70 in [177.8 cm] (12/31/2023 09:28) 265 lb [120.20 kg] (04/02/2024 12:30) BODY MASS INDEX - APR 02, 2024@12:30:55 38.1 Allergies: Patient has answered NKA HISTORY OF PRESENT ILLNESS: Refer to Cardiology notes. Aspiration risk: Obesity, GERD Active problems - Computerized Problem List is the source for the followin. Low back pain 2. Varicose veins 3. Pain of right knee joint 4. Essential hypertension 5. Epilepsy 6. AF- Atrial Fibrillation (RUST [id number]) 7. Cardiomyopathy 8. Mitral valve regurgitation 9. Obstructive sleep apnea syndrome 10. GERD - Gastro-Esophageal Reflux Disease (RUST [id number]) 11. Depressive disorder 12. Genital warts 13. Family History of Psychiatric Condition 14. Family History of Diabetes Mellitus 15. Hypothyroidism (SNOMED CT [id number]) PMHx/Review of Systems: Abnormal Respiratory Findings: GENARO: CPAP not tolerated. Abnormal Cardiac Findings: HTN Valvular Heart Disease: Mitral regurg. Afib: Other Cardiac Comments: Cardiomyopathy Abnormal Neurologic Findings: Seizure Disorder: Epilepsy: no seizure in last 12+ years Mental Health Problems: MDD Abnormal Genitourinary Findings: ED Other problems: Genital warts s/p cryotherapy Abnormal Gastroenterology Findings: GERD: Obesity Abnormal Endocrine System Findings: Thyroid Function: Hypothyroidism: Abnormal Musculoskeletal System Findings: CLBP Hematology System Within Normal Limits No Significant Infectious Diseases PAST SURGICAL HISTORY: 04/10/2024 CHRIS SCHEDULED CARDIOVERSION 01/31/2021 OPEN UMBILICAL HERNIA REPAIR/ (COMPLETED) EXCISION UMBILICAL SKIN COMPLEX 12/20/2020 OPEN UMBILICAL HERNIA REPAIR CANCELLED INCARCERATED/STRANGULATED Anesthetic History: No significant personal/family history of anesthetic complications. CURRENT SOCIAL HISTORY: Tobacco Use: Never ETOH USE: Rare Substance Abuse/USE: No Medications: Active Outpatient Medications (excluding Supplies): Active [...] HELP PREVENT BLOOD CLOTS (ANTICOAGULATION) Active Non-[place] Meds == NONE II. PHYSICAL EXAM To be completed on day of procedure. DATE/TIME TEMP PULSE RESP BP PAIN WEIGHT 04/02/24 @ 1230 98 64 16 102/78 0 265 LATEST LAB RESULTS: LAST BMP Collection DT Specimen Test Name Result Units Ref Range 12/31/2023 10:06 PLASMA!! UREA NITROGEN 20 mg/dL 7 - 12/31/2023 10:06 PLASMA!! SODIUM 137 mmol/L 135 - 145 12/31/2023 10:06 PLASMA!! POTASSIUM 4.6 mmol/L 3.5 - 5.0 12/31/2023 10:06 PLASMA!! CHLORIDE 105 mmol/L 100 - 110 12/31/2023 10:06 PLASMA!! CARBON DIOXIDE 21 mmol/L 20 - 30 12/31/2023 10:06 PLASMA!! ANION GAP 11 4 - 16 12/31/2023 10:06 PLASMA!! GLUCOSE 86 mg/dL 65 - 100 12/31/2023 10:06 PLASMA!! CREATININE 1.00 mg/dL 0.50 - 1.50 12/31/2023 10:06 PLASMA!! CALCIUM 10.3 mg/dL 8.5 - 10.5 !! Indicates COMMENTS AVAILABLE...Refer to Interim Lab Report. Collection DT Spec HGB A1C 12/31/2023 10:06 BLOOD 5.3 WBC: 6.1 (04/02/24 15:30) HCT: 44.9 (04/02/24 15:30) HGB: 15.6 (04/02/24 15:30) PLT: 257 (04/02/24 15:30) EKG 04/02/24: A fib with RVR (119 bpm), RBBB III. SUMMARY OF THE OVERALL ASSESSMENT: ASA status: 3 ANESTHETIC PLAN, RISKS, BENEFITS AND ALTERNATIVES including applicable General Anesthesia, Regional Anesthesia and Monitored Anesthesia Care will be discussed with the patient and family on the date of procedure. An attempt to accommodate the patient's anesthetic preference will be made when feasible. The ultimate choice for anesthetic plan is at the discretion of the anesthesia provider. TOTAL TIME SPENT IN CHART REVIEW: 15 minutes of this visit was spent in chart review and coordination of care, as detailed above. /garrick/ REJI FINK Anesthesiologist Signed: 04/09/2024 15:50 REJI FINK [facility]
--- OUTSIDE RECORDS SUMMARY | 2024-04-14 13:57 | XMS_ITS | Encounter Summary ---
Author Name [facility] [place] [facility] [facility] [place] Address [address] [place] [address] Care Team Providers Care Harnessmaker Name Role Phone NATE BOLANOS Primary Care Provider Unavailabl e Selected Encounter This section includes the information on record at [place] for the Encounter. Date/Time Encounter Type Encounter Description Reason Provider Source Apr 02, 2024 12:30 PM OFF/OP CONSLTJ NEW/EST HI 55 CARDIOLOGY ICD-10-CM Z01.810 Encounter for preprocedural cardiovascular examination Maribel SUAREZ [place] Encounter Template Text not used by [place] Assessments - Encounter Diagnoses This section includes the primary and secondary diagnoses documented for the Encounter. Date/Time Primary/Secondary Diagnosis Diagnosis Name Provider Source Apr 07, 2024 02:03 PM PRIMARY Encounter for preprocedural cardiovascular examination [place]EN SUARE[place] [facility] Apr 07, 2024 02:03 PM SECONDARY Cardiomyopathy, unspecified KEREN SUAREZ [place] [facility] Apr 07, 2024 02:03 PM SECONDARY Essential (primary) hypertension KEREN SUARE[place] [facility] Apr 07, 2024 02:03 PM SECONDARY Obstructive sleep apnea (adult) (pediatric) KEREN SUAREZ [place] [facility] Apr 07, 2024 02:03 PM SECONDARY Other obesity [place] [facility] Apr 07, 2024 02:03 PM SECONDARY Unspecified atrial fibrillation [facility] Plan of Treatment: Future Appointments (+ 6 months) and Future Tests (+/- 45 days) The Plan of Treatment section includes future care activities for the patient from all [place] treatmentfacilities. This section includes future appointments and future orders which are active, pending or scheduled. Future Appointments This section includes appointments that were scheduled to occur 6 months from the date of the Encounter, up to a maximum of 20 appointments. The data comes from all [place] treatment facilities. Appointment Date/Time Appointment Type Appointme nt Facility Name Apr 04, 2024 10:00 AM [place]ORY [place] [facility] Apr 07, 2024 09:45 AM AMBULATORY - NONE [facility] Apr 08, 2024 11:15 AM [place] [facility] Apr 09, 2024 10:30 AM AMBULATORY [place] [facility] Apr 10, 2024 09:15 AM [place]BUL[place]ORY [place] [facility] Apr 10, 2024 09:30 AM [place] [facility] Apr 10, 2024 12:00 PM AMBULATORY - [place] [facility] Apr 10, 2024 01:00 PM [place] [facility] Apr 14, 2024 07:00 AM [place]ULATORY - N[place] [facility] Apr 15, 2024 10:45 AM [place] [facility] Apr 21, 2024 11:00 AM [place] [facility] Jun 11, 2024 09:00 AM [place] [facility] Jun 18, 2024 09:00 AM [place] [facility] Jun 25, 2024 09:00 AM [place] [facility] Jul 02, 2024 09:00 AM [place] [facility] Jul 09, 2024 09:00 AM [place] [facility] Jul 16, 2024 09:00 AM [place] [facility] Jul 23, 2024 09:00 AM AMBULATORY - MEDICINE [facility] Cruz [facility] Jul 30, 2024 09:00 AM AMBULATORY - MEDICINE [facility] Cruz [facility] Aug 06, 2024 09:00 AM AMBULATORY - MEDICINE [facility] Active, Pending, and Scheduled Orders This section includes a listing of several types of active, pending, and scheduled orders, including clinic medications orders, diagnostic test orders, procedure orders and consult orders; where the start date of the order is 45 days before the date of the Encounter or 45 days after the date of theEncounter. The data comes from all [place] treatment facilities. Test Date/Time Test Type Test Details Facility Name Apr 11, 2024 08:29 AM Consult Order [facility] (ANTI-COAG) Cons Director Of Procurement's Choice [facility] Apr 14, 2024 12:00 AM Laboratory - Chemi stry Order CBC NO DIFF BLOOD(LAV-EDTA-WB) SP [facility] Apr 14, 2024 12:00 AM Laboratory - Chemi stry Order PT&INR BLOOD(BLUE-NA CIT) PLASMA SP [facility] Lab Results: +/- [...] performed on [place] ACL TOP 350 SN [id number] (405) Criticals repeated,call ed to,read back by: ARUN SILVERIO 04/10/24 AT 12:44 PM Ordering Provider: VANESSA PATEL Report Released Date/Time: Apr 08, 2024 12:40 PM Reporting Lab: [facility] [address] [address] Performing Lab: [facility] [address] [address] INR 7.3 {ratio} HH 0.9-1.1 PT 75.7 s H 9.4-12.5 Apr 10, 2024 12:05 PM [facility] P4 GLU,BUN,CREAT,LYTES,CA Specimen Type: PLASMA Comment: , Tests performed on Moogi Craven SN:[id number] (405) Ordering Provider: Maribel SUAREZ Report Released Date/Time: Apr 07, 2024 03:31 PM Reporting Lab: [facility] [address] [address] Performing Lab: [facility] [address] [address] UREA NITROGEN 21 mg/dL 7-25 SODIUM 135 mmol/L 135-145 POTASSIUM 4.1 mmol/L 3.5-5.0 CHLORIDE 102 mmol/L 100-110 CARBON DIOXIDE 27 mmol/L 20-30 ANION GAP 6 4-16 GLUCOSE 92 mg/dL 65-100 CREATININE 0.93 mg/dL 0.50-1.50 CALCIUM 9.5 mg/dL 8.5-10.5 eGFR(CKD-EPI 2020) >90 See_Comment Apr 07, 2024 10:26 AM [facility] PT&INR Specimen Type: PLASMA Comment: Tests performed on [place] ACL TOP 350 SN [id number] (405) Ordering Provider: LOS GOMEZ Report Released Date/Time: Apr 02, 2024 03:19 PM Reporting Lab: [facility] [address] [address] Performing Lab: [facility] [address] [address] INR 3.5 {ratio} H 0.9-1.1 PT 37.5 s H 9.4-12.5 Apr 02, 2024 03:30 PM [facility] PT&INR Specimen Type: PLASMA Comment: Tests performed on [place] ACL TOP 350 SN [id number] (405) Ordering Provider: LOS GOMEZ Report Released Date/Time: Apr 02, 2024 03:17 PM Reporting Lab: [facility] [address] [address] Performing Lab: [facility] [address] [address] INR 1.2 {ratio} H 0.9-1.1 PT 12.9 s H 9.4-12.5 Apr 02, 2024 03:30 PM [facility] CBC NO DIFF Specimen Type: BLOOD No comment entered. Ordering Provider: LOS GOMEZ Report Released Date/Time: Apr 02, 2024 03:17 PM Reporting Lab: [facility] [address] [address] Performing Lab: [facility] [address] [address] WBC 6.1 10*3/uL 4.5-11.0 RBC 4.77 10*6/uL [...] Height Weight Body Mass Index Source Apr 02, 2024 12:30 PM 98 64 102/78 16 99 0 265 38 [facility] Advance Directives: All historical and current Section Date Range: From patient's date of to the date document was created. This section includes ALL of a patient's completed or amended [place] Advance and Rescinded Directives. The entries below indicate that a directive exists for the patient, but an actual copy is not included with this document. The data comes from all [place] facilities. Date Advance Directives Provider Source May 18, 2021 ADVANCE DIRECTIVE RICHARD DAN [facility] Encounter Notes: All associated encounter notes This section contains the clinical notes associated to the Encounter. Date/Time Encounter Note(s) Provider Source Apr 14, 2024 09:33 AM ADDENDUM: LOCAL TITLE: Addendum STANDARD TITLE: ADDENDUM DATE OF NOTE: APR 14, 2024@09:33:38 ENTRY DATE: APR 14, 2024@09:33:40 AUTHOR: RIENDEAU,ARUN A EXP COSIGNER: URGENCY: STATUS: COMPLETED Defer to cardiology provider to give clearance to vascular service for to come off of anticoagulation for procedure. [facility] can provide periprocedural instructions once procedure is scheduled. /garrick/ ARUN SILVERIO PHARMD PHARMACIST Signed: 04/14/2024 09:34 Receipt Acknowledged By: 04/14/2024 13:41 /garrick/ Micheal Suarez, MSN, WIND TUNNEL TECHNICIAN Nurse Practitioner, Cardiology --- Original Document --- 04/02/24 CONSULT: Cardiology: CARDIOLOGY PREOPERATIVE RISK STRATIFICATION CONSULT NOTE Requesting Provider: JUSTINE MCLEOD Reason for consult: Chronic PAF, preop risk assessment for RLE GSV stripping/ligation and stab phlebectomies Chief Complaint: Hx PAF x 20 years per patient report, mildly symptomatic when occurs, currently on ASA only, no anticoagulation and managed by PCP. Also noted Hx of MR and cardiomyopathy. HPI: Mr. Cole Mar is a 48yo MALE with a history of A. fib (diagnosed 2010), HCM, hypertension, hypothyroidism, GENARO, obesity and seizure disorder. Cardiology seeing him today for preoperative risk stratification for right lower extremity great saphenous vein stripping/ligation and stab phlebectomies. He reports being asymptomatic in Afib, EKG reviewed and ventricular rates 119s bpm however he reports don't feel it. He is currently not on a DOAC, but taking asa 325mg po daily. He believed that this would cover him as far as stroke risk mitigation from Afib. DASI 9.89METS Medication Adherence: asa, lisinopril, dilt, HCTZ Exercise/Activity: walking daily [Diet:]sandwiches, a lot of to-go on the run food CARDIOVASCULAR REVIEW OF SYSTEMS: Pt denies chest pain/discomfort, edema, dyspnea, orthopnea, PND, dizziness, palpitations, near syncope, syncope. No significant weight changes. PAST MEDICAL HISTORY #AF- Atrial Fibrillation ([id number]- 2, HTN, CM) -Diagnosed 07/2011 setting of unresponsiveness after seizure, converted to SR with IV dilt #HCM (non-obstructive) - Echo 2003 Sepal Hypertrophy with WEST - Echo 2004 Septal Hypertrophy with obstruction at rest or exertion - Echo 2010 Moderate concentric LVH, LVEF 70%. RV normal in size/thickness and fnx #HTN #Hypothyroidism #GENARO (not using CPAP) #Obesity #GERD #Varicose veins #Seizure disorder/Epilepsy #Low back pain #Depression #Genital warts #Family History of Psychiatric Condition #Family History of Diabetes Mellitus Family History: Mother- passed at 62 yo, from stroke, DMII Father- alive and well 74yo Social History: Home/support - lives at home with gf. 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 *Tobacco - Denies *EtOH - once q3-4 mos glass of wine or beer ALLERGIES: Patient has answered NKA Active Outpatient Medications (excluding Supplies): Active Outpatient Medications Status 1) ASPIRIN 325MG TAB TAKE ONE TABLET BY MOUTH EVERY DAY ACTIVE - stopped today TO PREVENT STROKE/HEART ATTACK OR FOR PAIN/INFLAMMATION/SWELLING [...] TAB TAKE ONE TABLET BY MOUTH THREE ACTIVE- not taking TIMES DAILY NEEDED FOR PAIN 8) LAMOTRIGINE [...] ACTIVE TWICE A DAY 16 Total Medications VITALS: Temp: 98 F [36.7 C] (04/02/2024 12:30) Pulse: 64 (04/02/2024 12:30) BP: 102/78 (04/02/2024 12:30) Resp: 16 (04/02/2024 12:30) 04/02/24 @ 1230 PULSE OXIMETRY: 99 HT(in): 70 in [177.8 cm] (12/31/2023 09:28) WT(lbs):265 lb [120.20 kg] (04/02/2024 12:30) BMI: BODY MASS INDEX - APR 02, 2024@12:30:55 38.1 EXAM: Gen - male, alert and cooperative, NAD Neck - neck veins flat Abd- rounded Lungs - CTAB, no crackles, or wheezes Heart - irregular, Normal S1 S2. No M/G/R Ext - No LE edema. 2+ b/l PT pulses. Extremities warm to touch.+ tortuous varicose veins. RELEVANT LABS: WBC: 6.2 (12/31/23 10:06) HCT: 47.6 (12/31/23 10:06) HGB: 16.3 (12/31/23 10:06) PLT: 263 (12/31/23 10:06) K: 4.6 (12/31/23 10:06) BUN: 20 (12/31/23 10:06) CREATI: 1.00 (12/31/23 10:06) CHOL: 171 (12/31/23 10:06) HDL: 60 (12/31/23 10:06) LDL: 100 (12/31/23 10:06) TRI (12/31/23 10:06) LDL: 100 (12/31/23 10:06) Collection DT Specimen Test Name Result Units Ref Range 12/31/2023 10:06 PLASMA!! ALBUMIN 4.3 g/dL 3.2 - 5.0 12/31/2023 10:06 PLASMA!! BILIRUBIN, TOTAL 0.4 mg/dL 0.2 - 1.2 12/31/2023 10:06 PLASMA!! ALKALINE PHOSPHAT 144 U/L 40 - 150 12/31/2023 10:06 PLASMA!! ALT(SGPT) 37 U/L 7 - 52 12/31/2023 10:06 PLASMA!! AST(SGOT) 30 U/L 5 - 34 HGB A1C: 5.3 (12/31/23 10:06) TSH: 3.45 (12/31/23 10:06) DIAGNOSTICS: ___ EKG: EKG today 04/02/24 Vent rate 119bpm (pt asx) DISCUSSION: DASI 9.89METS Cardiac Complication 0.1% (above average) Above average 48yo MALE with a history of A. fib (diagnosed 2010, [id number]- 2, HTN, CM)), HCM, hypertension, hypothyroidism, GENARO, obesity and seizure disorder. Cardiology consulted for preoperative risk stratification for right lower extremity great saphenous vein stripping/ligation and stab phlebectomies scheduled for unknown date at [facility]. Rosaura is asymptomatic in afib despite rates >110bpm. He is taking 325mg Asprin which he believed covered him for stroke risk mitigation. We discontinued the aspirin today and started him on Warfarin. We discussed rate control prior to surgery which he was as agreeable. PLAN: >CV risk reduction: 1.6% Low, no statin indicated >STOP Asa 325mg po daily >START metoprolol succinate 25mg po bid >START coumadin 5mg po daily >Consult AC clinic -Consulted with pharmacy via telephone during visit, Phenytoin contraindicated with doac - started warfarin today, DOAC not suitable with seizure medications. >CHRIS/DCCV (pt preference) >Starting MOVE in sept. >GENARO not using CPAP RTC: 3 weeks, re-eval rates s/p CHRIS/DCCV Reviewed: Medication/treatment benefits/risks/side effects/monitoring Preventive/Health Maintenance: Exercise Cardiac diet/low na >50% of this 60 minutes visit was spent in rybb-[id number] counseling, and/or coordination of care. Discussion pertained to the followin mins reviewed outside records/ and coordination of care. Notes lost during power outage and Tornado warnings. [x] diagnostic test results, impressions and/or recommended management [x] risk and benefits of treatment options [x] instructions for treatment and/or f/u [x] disease risk factor reduction [x] pt and family education /garrick/ Micheal Suarez, MSN, WIND TUNNEL TECHNICIAN Nurse Practitioner, Cardiology Signed: 04/07/2024 14:03 04/12/2024 ADDENDUM STATUS: COMPLETED Please reach out to vascular surgery when patient will be cleared and off anti- coagulation so we can pursue scheduling RLE GSV ligation. Thank you. /garrick/ STANFORD STEPHENS Physician Mobile Home Set Up Person Signed: 04/12/2024 10:49 /ayla Suarez MSN, WIND TUNNEL TECHNICIAN Nurse Practitioner, Cardiology Cosigned: 04/14/2024 09:11 Receipt Acknowledged By: 04/14/2024 09:35 /garrick/ ARUN SILVERIO PHARMD PHARMACIST ARUN SILVERIO [facility] Apr 12, 2024 10:48 AM ADDENDUM: LOCAL TITLE: Addendum STANDARD TITLE: ADDENDUM DATE OF NOTE: APR 12, 2024@10:48 ENTRY DATE: APR 12, 2024@10:48:21 AUTHOR: STANFORD STEPHENS EXP COSIGNER: MICHEAL SUAREZ URGENCY: STATUS: COMPLETED Please reach out to vascular surgery when patient will be cleared and off anti- coagulation so we can pursue scheduling RLE GSV ligation. Thank you. /ayla STEPHENS Physician Mobile Home Set Up Person Signed: 04/12/2024 10:49 /alya Suarez MSN, WIND TUNNEL TECHNICIAN Nurse Practitioner, Cardiology Cosigned: 04/14/2024 09:11 Receipt Acknowledged By: 04/14/2024 09:35 /garrick/ ARUN SILVERIO PHARMD PHARMACIST --- Original Document --- 04/02/24 CONSULT: Cardiology: CARDIOLOGY PREOPERATIVE RISK STRATIFICATION CONSULT NOTE Requesting Provider: JUSTINE MCLEOD Reason for consult: Chronic PAF, preop risk assessment for RLE GSV stripping/ligation and stab phlebectomies Chief Complaint: Hx PAF x 20 years per patient report, mildly symptomatic when occurs, currently on ASA only, no anticoagulation and managed by PCP. Also noted Hx of MR and cardiomyopathy. HPI: Mr. Cole Mar is a 48yo MALE with a history of A. fib (diagnosed 2010), HCM, hypertension, hypothyroidism, GENARO, obesity and seizure disorder. Cardiology seeing him today for preoperative risk stratification for right lower extremity great saphenous vein stripping/ligation and stab phlebectomies. He reports being asymptomatic in Afib, EKG reviewed and ventricular rates 119s bpm however he reports don't feel it. He is currently not on a DOAC, but taking asa 325mg po daily. He believed that this would cover him as far as stroke risk mitigation from Afib. DASI 9.89METS Medication Adherence: asa, lisinopril, dilt, HCTZ Exercise/Activity: walking daily [Diet:]sandwiches, a lot of to-go on the run food CARDIOVASCULAR REVIEW OF SYSTEMS: Pt denies chest pain/discomfort, edema, dyspnea, orthopnea, PND, dizziness, palpitations, near syncope, syncope. No significant weight changes. PAST MEDICAL HISTORY #AF- Atrial Fibrillation ([id number]- 2, HTN, CM) -Diagnosed 07/2011 setting of unresponsiveness after seizure, converted to SR with IV dilt #HCM (non-obstructive) - Echo 2003 Sepal Hypertrophy with WEST - Echo 2004 Septal Hypertrophy with obstruction at rest or exertion - Echo 2010 Moderate concentric LVH, LVEF 70%. RV normal in size/thickness and fnx #HTN #Hypothyroidism #GENARO (not using CPAP) #Obesity #GERD #Varicose veins #Seizure disorder/Epilepsy #Low back pain #Depression #Genital warts #Family History of Psychiatric Condition #Family History of Diabetes Mellitus Family History: Mother- passed at 62 yo, from stroke, DMII Father- alive and well 74yo Social History: Home/support - lives at home with gf. 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 *Tobacco - Denies *EtOH - once q3-4 mos glass of wine or beer ALLERGIES: Patient has answered NKA Active Outpatient Medications (excluding Supplies): Active Outpatient Medications Status 1) ASPIRIN 325MG TAB TAKE ONE TABLET BY MOUTH EVERY DAY ACTIVE - stopped today TO PREVENT STROKE/HEART ATTACK OR FOR PAIN/INFLAMMATION/SWELLING [...] TAB TAKE ONE TABLET BY MOUTH THREE ACTIVE- not taking TIMES DAILY NEEDED FOR PAIN 8) LAMOTRIGINE [...] ACTIVE TWICE A DAY 16 Total Medications VITALS: Temp: 98 F [36.7 C] (04/02/2024 12:30) Pulse: 64 (04/02/2024 12:30) BP: 102/78 (04/02/2024 12:30) Resp: 16 (04/02/2024 12:30) 04/02/24 @ 1230 PULSE OXIMETRY: 99 HT(in): 70 in [177.8 cm] (12/31/2023 09:28) WT(lbs):265 lb [120.20 kg] (04/02/2024 12:30) BMI: BODY MASS INDEX - APR 02, 2024@12:30:55 38.1 EXAM: Gen - male, alert and cooperative, NAD Neck - neck veins flat Abd- rounded Lungs - CTAB, no crackles, or wheezes Heart - irregular, Normal S1 S2. No M/G/R Ext - No LE edema. 2+ b/l PT pulses. Extremities warm to touch.+ tortuous varicose veins. RELEVANT LABS: WBC: 6.2 (12/31/23 10:06) HCT: 47.6 (12/31/23 10:06) HGB: 16.3 (12/31/23 10:06) PLT: 263 (12/31/23 10:06) K: 4.6 (12/31/23 10:06) BUN: 20 (12/31/23 10:06) CREATI: 1.00 (12/31/23 10:06) CHOL: 171 (12/31/23 10:06) HDL: 60 (12/31/23 10:06) LDL: 100 (12/31/23 10:06) TRI (12/31/23 10:06) LDL: 100 (12/31/23 10:06) Collection DT Specimen Test Name Result Units Ref Range 12/31/2023 10:06 PLASMA!! ALBUMIN 4.3 g/dL 3.2 - 5.0 12/31/2023 10:06 PLASMA!! BILIRUBIN, TOTAL 0.4 mg/dL 0.2 - 1.2 12/31/2023 10:06 PLASMA!! ALKALINE PHOSPHAT 144 U/L 40 - 150 12/31/2023 10:06 PLASMA!! ALT(SGPT) 37 U/L 7 - 52 12/31/2023 10:06 PLASMA!! AST(SGOT) 30 U/L 5 - 34 HGB A1C: 5.3 (12/31/23 10:06) TSH: 3.45 (12/31/23 10:06) DIAGNOSTICS: ___ EKG: EKG today 04/02/24 Vent rate 119bpm (pt asx) DISCUSSION: DASI 9.89METS Cardiac Complication 0.1% (above average) Above average 48yo MALE with a history of A. fib (diagnosed 2010, [id number]- 2, HTN, CM)), HCM, hypertension, hypothyroidism, GENARO, obesity and seizure disorder. Cardiology consulted for preoperative risk stratification for right lower extremity great saphenous vein stripping/ligation and stab phlebectomies scheduled for unknown date at [facility]. Rosaura is asymptomatic in afib despite rates >110bpm. He is taking 325mg Asprin which he believed covered him for stroke risk mitigation. We discontinued the aspirin today and started him on Warfarin. We discussed rate control prior to surgery which he was as agreeable. PLAN: >CV risk reduction: 1.6% Low, no statin indicated >STOP Asa 325mg po daily >START metoprolol succinate 25mg po bid >START coumadin 5mg po daily >Consult AC clinic -Consulted with pharmacy via telephone during visit, Phenytoin contraindicated with doac - started warfarin today, DOAC not suitable with seizure medications. >CHRIS/DCCV (pt preference) >Starting MOVE in may. >GENARO not using CPAP RTC: 3 weeks, re-eval rates s/p CHRIS/DCCV Reviewed: Medication/treatment benefits/risks/side effects/monitoring Preventive/Health Maintenance: Exercise Cardiac diet/low na >50% of this 60 minutes visit was spent in [id number] counseling, and/or coordination of care. Discussion pertained to the followin mins reviewed outside records/ and coordination of care. Notes lost during power outage and Tornado warnings. [x] diagnostic test results, impressions and/or recommended management [x] risk and benefits of treatment options [x] instructions for treatment and/or f/u [x] disease risk factor reduction [x] pt and family education /garrick/ Micheal Suarez MSN, WIND TUNNEL TECHNICIAN Nurse Practitioner, Cardiology Signed: 04/07/2024 14:03 04/14/2024 ADDENDUM STATUS: COMPLETED Defer to cardiology provider to give clearance to vascular service for to come off of anticoagulation for procedure. [facility] can provide periprocedural instructions once procedure is scheduled. /garrick/ ARUN SILVERIO PHARMD PHARMACIST Signed: 04/14/2024 09:34 Receipt Acknowledged By: * AWAITING SIGNATURE * MICHEAL SUAREZ [facility] Apr 02, 2024 12:38 PM CARDIOLOGY CONSULT: LOCAL TITLE: CONSULT: Cardiology STANDARD TITLE: CARDIOLOGY CONSULT DATE OF NOTE: APR 02, 2024@12:38 ENTRY DATE: APR 02, 2024@12:39:10 AUTHOR: MICHEAL SUAREZ EXP COSIGNER: URGENCY: STATUS: COMPLETED CONSULT: Cardiology Has ADDENDA CARDIOLOGY PREOPERATIVE RISK STRATIFICATION CONSULT NOTE Requesting Provider: JUSTINE MCLEOD Reason for consult: Chronic PAF, preop risk assessment for RLE GSV stripping/ligation and stab phlebectomies Chief Complaint: Hx PAF x 20 years per patient report, mildly symptomatic when occurs, currently on ASA only, no anticoagulation and managed by PCP. Also noted Hx of MR and cardiomyopathy. HPI: Mr. Cole Mar is a 48yo MALE with a history of A. fib (diagnosed 2010), HCM, hypertension, hypothyroidism, GENARO, obesity and seizure disorder. Cardiology seeing him today for preoperative risk stratification for right lower extremity great saphenous vein stripping/ligation and stab phlebectomies. He reports being asymptomatic in Afib, EKG reviewed and ventricular rates 119s bpm however he reports don't feel it. He is currently not on a DOAC, but taking asa 325mg po daily. He believed that this would cover him as far as stroke risk mitigation from Afib. DASI 9.89METS Medication Adherence: asa, lisinopril, dilt, HCTZ Exercise/Activity: walking daily [Diet:]sandwiches, a lot of to-go on the run food CARDIOVASCULAR REVIEW OF SYSTEMS: Pt denies chest pain/discomfort, edema, dyspnea, orthopnea, PND, dizziness, palpitations, near syncope, syncope. No significant weight changes. PAST MEDICAL HISTORY #AF- Atrial Fibrillation ([id number]- 2, HTN, CM) -Diagnosed 07/2011 setting of unresponsiveness after seizure, converted to SR with IV dilt #HCM (non-obstructive) - Echo 2003 Sepal Hypertrophy with WEST - Echo 2004 Septal Hypertrophy with obstruction at rest or exertion - Echo 2010 Moderate concentric LVH, LVEF 70%. RV normal in size/thickness and fnx #HTN #Hypothyroidism #GENARO (not using CPAP) #Obesity #GERD #Varicose veins #Seizure disorder/Epilepsy #Low back pain #Depression #Genital warts #Family History of Psychiatric Condition #Family History of Diabetes Mellitus Family History: Mother- passed at 62 yo, from stroke, DMII Father- alive and well 74yo Social History: Home/support - lives at home with gf. 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 *Tobacco - Denies *EtOH - once q3-4 mos glass of wine or beer ALLERGIES: Patient has answered [facility] Active Outpatient Medications (excluding Supplies): Active Outpatient Medications Status 1) ASPIRIN 325MG TAB TAKE ONE TABLET BY MOUTH EVERY DAY ACTIVE - stopped today TO PREVENT STROKE/HEART ATTACK OR FOR PAIN/INFLAMMATION/SWELLING [...] TAB TAKE ONE TABLET BY MOUTH THREE ACTIVE- not taking TIMES DAILY NEEDED FOR PAIN 8) LAMOTRIGINE [...] ACTIVE TWICE A DAY 16 Total Medications VITALS: Temp: 98 F [36.7 C] (04/02/2024 12:30) Pulse: 64 (04/02/2024 12:30) BP: 102/78 (04/02/2024 12:30) Resp: 16 (04/02/2024 12:30) 04/02/24 @ 1230 PULSE OXIMETRY: 99 HT(in): 70 in [177.8 cm] (12/31/2023 09:28) WT(lbs):265 lb [120.20 kg] (04/02/2024 12:30) BMI: BODY MASS INDEX - APR 02, 2024@12:30:55 38.1 EXAM: Gen - male, alert and cooperative, NAD Neck - neck veins flat Abd- rounded Lungs - CTAB, no crackles, or wheezes Heart - irregular, Normal S1 S2. No M/G/R Ext - No LE edema. 2+ b/l PT pulses. Extremities warm to touch.+ tortuous varicose veins. RELEVANT LABS: WBC: 6.2 (12/31/23 10:06) HCT: 47.6 (12/31/23 10:06) HGB: 16.3 (12/31/23 10:06) PLT: 263 (12/31/23 10:06) K: 4.6 (12/31/23 10:06) BUN: 20 (12/31/23 10:06) CREATI: 1.00 (12/31/23 10:06) CHOL: 171 (12/31/23 10:06) HDL: 60 (12/31/23 10:06) LDL: 100 (12/31/23 10:06) TRI (12/31/23 10:06) LDL: 100 (12/31/23 10:06) Collection DT Specimen Test Name Result Units Ref Range 12/31/2023 10:06 PLASMA!! ALBUMIN 4.3 g/dL 3.2 - 5.0 12/31/2023 10:06 PLASMA!! BILIRUBIN, TOTAL 0.4 mg/dL 0.2 - 1.2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
--- OUTSIDE RECORDS SUMMARY | 2024-04-14 13:57 | XMS_ITS | Encounter Summary ---
Author Name [facility] [place] Address [address] [facility], [place] [address] Care Team Providers Care Commercial Real Estate Agent Name Role Phone NATE BOLANOS Primary Care Provider Unavailabl e Selected Encounter This section includes the information on record at [place] for the Encounter. Date/Time Encounter Type Encounter Description Reason Pro vider Source Apr 09, 2024 02:48 PM Outpatient Encounter TELEPHONE/MEDICINE IHE Encounter Template Text not used by [place] [...] 09:15 AM AMBULATORY - [place] [facility] Apr 10, 2024 09:30 AM AMBULATORY - NONE [place] [facility] Apr 10, 2024 12:00 PM AMBULATORY - [place]GERY [place] [facility] Apr 10, 2024 01:00 PM [place] [facility] Apr 14, 2024 07:00 AM AMBULATORY [...] [place] [facility] Aug 06, 2024 09:00 AM [place] [facility] Aug 13, 2024 09:00 AM [place] [facility] 2024 09:00 AM [place] [facility] Aug 27, 2024 09:00 AM [place] [facility] Sep 03, 2024 09:00 AM [place] - [place]IC[place] [facility] Active, Pending, and Scheduled Orders This [...] Order [facility] (ANTI-COAG) Cons [place] Setter[facility] Choice [facility] Apr 14, 2024 12:00 AM Laboratory - Chemi stry Order PT&INR BLOOD(BLUE-NA CIT) PLASMA SP [facility] Apr 14, 2024 12:00 AM Laboratory - Chemi stry Order CBC NO DIFF BLOOD(LAV-EDTA-WB) SP [facility] Lab Results: +/- 30 [...] Specimen Type: PLASMA Comment: Tests performed on [employer] ACL TOP 350 SN [id number] ([id number]) Criticals repeated,call ed to,read back by: ARUN SILVERIO 04/10/24 AT 12:44 PM Ordering Provider: VANESSA PATEL Report Released Date/Time: Apr 08, 2024 12:40 PM Reporting Lab: [facility] [address] [facility] [address] Performing Lab: [facility] [address] [facility] [address] INR 7.3 {ratio} HH 0.9-1.1 PT 75.7 s H 9.4-12.5 Apr 10, 2024 12:05 PM [facility] P4 GLU,BUN,CREAT,LYTES,CA Specimen Type: PLASMA Comment: , Tests performed on [employer] Craven SN:[id number] ([id number]) Ordering Provider: Maribel MENDEZ Report Released Date/Time: Apr 07, 2024 03:31 PM Reporting Lab: [facility] [address] [facility] [address] Performing Lab: [facility] [address] [facility] [address] UREA NITROGEN 21 mg/dL 7-25 SODIUM 135 [...] performed on IL ACL TOP 350 SN [id number] ([id number]) Ordering Provider: LOS GOMEZ Report Released Date/Time: Apr 02, 2024 03:19 PM Reporting Lab: [place] [facility] [address] [facility] [address] Performing Lab: [place] [facility] [address] [facility] [address] INR 3.5 {ratio} H 0.9-1.1 PT 37.5 s H 9.4-12.5 Apr 02, 2024 03:30 PM [place] [facility] PT&INR Specimen Type: PLASMA Comment: Tests performed on IL ACL TOP 350 SN [id number] ([id number]) Ordering Provider: LOS GOMEZ Report Released Date/Time: Apr 02, 2024 03:17 PM Reporting Lab: [place] [facility] [facility] [address] [facility] [address] Performing Lab: [place] [facility] [address] [facility] [address] INR 1.2 {ratio} H 0.9-1.1 PT 12.9 s H 9.4-12.5 Apr 02, 2024 03:30 PM [place] [facility] CBC NO DIFF Specimen Type: BLOOD No comment entered. Ordering Provider: LOS GOMEZ Report Released Date/Time: Apr 02, 2024 03:17 PM Reporting Lab: [place] [facility] [address] [facility] [address] Performing Lab: [facility] [address] [facility] [address] WBC 6.1 10*3/uL 4.5-11.0 RBC 4.77 10*6/uL [...] Provider Source May 18, 2021 ADVANCE DIRECTIVE RESTORATIONISTRICHARD BOWEN [facility] Encounter Notes: All associated encounter notes This section contains the clinical notes associated to the Encounter. Date/Time Encounter Note(s) Provider Source Apr 09, 2024 02:48 PM NURSING TELEPHONE ENCOUNTER NOTE: LOCAL TITLE: TELEPHONE CALL SAME DAY PRE-PROCEDURE STANDARD TITLE: NURSING TELEPHONE ENCOUNTER NOTE DATE OF NOTE: APR 09, 2024@14:48 ENTRY DATE: APR 09, 2024@14:48:26 AUTHOR: DESI RAYMOND COSIGNER: URGENCY: STATUS: COMPLETED Procedure to be done with Anesthesia. ARRIVIAL TIME: 1200 Procedure Date: Procedure: SURGEON/PROCEDURALIST: PSYCHOLOGICAL ANTHROPOLOGIST REQUIRED :Yes Name: In the last 48 hours, have you experienced any of the following symptoms? No symptoms Is the patient being admitted? No Instuctions: Nothing to eat: after midnight on :Mar Clear liquids until: 2 hours prior to your scheduled arrival time, Clear liquids include: water, marco ezra, apple/cranberry juice, black coffee or tea (no milk products) Appropriate medications to take: Routine am meds, Appropriate medications to holdsee pre-op list of meds Have you started any new medications like an antibiotic or a medicine to thin your blood in the past two weeks? if yes , describe Do you have any current skin issues including open sores, wounds, or rashes on your body? No if yes , the RN needs to notify the procedural team No jewelry, makeup, powder or deodorant Bring a valid ID, insurance card No valuables/appropriate clothing Must have a responsible Adult Calibration Specialist All patient questions answered: yes Spoke with patient over the phone. Time:2:54pm Left Voice mail on number: . Time: PACU [place] number, , provided for Vet to call back with any questions or concerns. Confirmed that the patient has received home COVID testing kit; obtained 72 -hour result if patient has completed testing at the time of call /garrick/ DESI RAYMOND RN Signed: 04/09/2024 14:54 DESI RAYMOND [place] [facility]
--- OUTSIDE RECORDS SUMMARY | 2024-04-14 13:58 | XMS_ITS | Encounter Summary ---
Author Name [place] Address [address] [place] [address] Care Team Providers Care Entertainment Director Name Role Phone LUIS MIGUELNATE Primary Care Provider Unavailabl e Selected Encounter This section includes the information on record at [place] for the Encounter. Date/Time Encounter Type Encounter Description Reason Pro vider Source Jan 21, 2024 01:55 PM Outpatient Encounter ADMIN PAT ACTIVTIES (SANDEEPNONCT) IHE Encounter Template Text not used by [place] Plan of Treatment: Future Appointments (+ 6 [...] Appointment Type Appointme nt Facility Name Mar 05, 2024 12:37 PM AMBULATORY - MEDICINE [facility] Mar 11, 2024 08:00 AM [facility] SURGERY [facility] Mar 11, 2024 09:30 AM [facility] - SURGERY [facility] Apr 02, 2024 12:30 PM [place] [facility] Apr 04, 2024 10:00 AM [place] [facility] Apr 07, 2024 09:45 AM AMBULATORY - NONE [facility] Apr 08, 2024 11:15 AM [place]IC[place] [facility] Apr 09, 2024 10:30 AM AM[place]UL[place]ORY - [place] [facility] Apr 10, 2024 09:15 AM [place] [facility] Apr 10, 2024 09:30 AM AM[place]ULATORY - NONE [place] [facility] Apr 10, 2024 12:00 PM [place]ORY [place] [facility] Apr 10, 2024 01:00 PM [place] [facility] Apr 14, 2024 07:00 AM AM[place]ULATORY - NONE [place] [facility] Apr 15, 2024 10:45 AM [place]IC[place] [facility] Apr 21, 2024 11:00 AM [place]IC[place] [facility] Jun 11, 2024 09:00 AM [place]IC[place] [facility] Jun 18, 2024 09:00 AM [place]IC[place] [facility] Jun 25, 2024 09:00 AM [place]ORY [place]IC[place] [facility] Jul 02, 2024 09:00 AM [place]IC[place] [facility] Jul 09, 2024 09:00 AM AM[place]UL[place]ORY - [place]IC[place] [facility] Active, Pending, and Scheduled Orders This [...] AM Consult Order MOVE! OUTP ATIENT Cons Organic Section Technical Lead's Choice [facility] Lab Results: +/- 30 days of [...] Range Comment Dec 31, 2023 10:06 AM [facility] LAMOTRIGINE(Q) Specimen Type: SERUM Comment: This test was developed and its analytical performance characteristics have been determined by [facility] [place], [place]. It has not been cleared or approved by the U.S. Food and Drug Administration. This assay has been validated pursuant to the CLIA regulations and is used for clinical purposes. Test Performed by [employer], [facility], [address] [place] [address] Leland Gamble M.D., Ph.D., Director of Laboratories , CLIA [id number] Ordering Provider: NATE BOLANOS Report Released Date/Time: Dec 31, 2023 09:36 AM Reporting Lab: [facility] [address] [facility] [address] Performing Lab: [facility] [id number] [place] [address] LAMOTRIGINE(Q) 4.8 ug/mL 2.5-15.0 Dec 31, 2023 10:06 AM [facility] LIVER PROFILE Specimen Type: PLASMA Comment: , Tests performed on [employer] SN:[id number] Ordering Provider: NATE BOLANOS Report Released Date/Time: Dec 20, 2023 11:26 AM Reporting Lab: [facility] [address] [facility] [address] Performing Lab: [facility] [address] [facility] [address] PROTEIN, TOTAL 7.8 g/dL 6.0-8.5 ALBUMIN 4.3 g/dL 3.2-5.0 BILIRUBIN, TOTAL 0.4 mg/dL 0.2-1.2 ALKALINE PHOSPHATASE 144 U/L 40-150 ALT(SGPT) 37 U/L 7-52 AST(SGOT) 30 U/L 5-34 FIB-4 SCORE 0.92 <2.67 Dec 31, 2023 10:06 AM [facility] CBC NO DIFF Specimen Type: BLOOD No comment entered. Ordering Provider: NATE BOLANOS Report Released Date/Time: Dec 20, 2023 11:26 AM Reporting Lab: [facility] [address] [facility] [address] Performing Lab: [facility] [address] [facility] [address] WBC 6.2 10*3/uL 4.5-11.0 RBC 5.13 10*6/uL 4.23-5.66 HGB 16.3 g/dL 12.8-17 HEMATOCRIT 47.6 39.2-50.4 MCV 92.8 fL 82-99 MCH 31.8 pg 26.2-32.6 MCHC 34.2 g/dL 30.8-35.1 PLT 263 10*3/uL 140-360 MPV 9.9 fL 9.2-12.4 RDW 11.8 L 12.0-16.0 Dec 31, 2023 10:06 AM [facility] P4 GLU,BUN,CREAT,LYTES,CA Specimen Type: PLASMA Comment: , Tests performed on [employer] SN:[id number]). Ordering Provider: NATE BOLANOS Report Released Date/Time: Dec 20, 2023 11:26 AM Reporting Lab: [facility] [address] [facility] [address] Performing Lab: [facility] [address] [facility] [address] UREA NITROGEN 20 mg/dL 7-25 SODIUM 137 mmol/L 135-145 POTASSIUM 4.6 mmol/L 3.5-5.0 CHLORIDE 105 mmol/L 100-110 CARBON DIOXIDE 21 mmol/L 20-30 ANION GAP 11 4-16 GLUCOSE 86 mg/dL 65-100 CREATININE 1.00 mg/dL 0.50-1.50 CALCIUM 10.3 mg/dL 8.5-10.5 eGFR(CKD-EPI 2020) >90 mL/min See_Commen t Dec 31, 2023 10:06 AM [facility] LIPOPROTEIN CHOLESTEROL FRACT. PANEL Specimen Type: PLASMA Comment: , Tests performed on [employer] SN:[id number] ([id number]). Ordering Provider: NATE BOLANOS Report Released Date/Time: Dec 20, 2023 11:26 AM Reporting Lab: [facility] [address] [facility] [address] Performing Lab: [facility] [address] [facility] [address] CHOLESTEROL 171 mg/dL 0-200 TRIGLYCERIDE 55 mg/dL 0-150 HDL CHOLESTEROL 60 mg/dL >40 LDL CHOLESTEROL (CALC) 100 mg/dL 0-129 Dec 31, 2023 10:06 AM [facility] GLYCOHEMOGLOBIN (A1C ONLY) Specimen Type: BLOOD Comment: , Tests performed on [employer]ven SN:[id number] (405) Values obtained from A1C measurements can vary. For typical A1C assays, a reported value of 7.0 could actually be between 6.72 and 7.28 if measured by a reference method. A reported value of 9.0 could actually be between 8.73 and 9.27. Ref: http://www.ngsp. org/CAPdata.asp Ordering Provider: NATE BOLANOS Report Released Date/Time: Dec 20, 2023 11:26 AM Reporting Lab: [facility] [address] [facility] [address] Performing Lab: [facility] [address] [facility] [address] HEMOGLOBIN A1C 5.3 4.0-5.6 Dec 31, 2023 10:06 AM [facility] DILANTIN Specimen Type: SERUM Comment: LAST DOSE 8:00 AM 12/31/23 , Tests performed on [email or web address] SN:[id number] ([id number]). Ordering Provider: NATE BOLANOS Report Released Date/Time: Dec 31, 2023 09:36 AM Reporting Lab: [facility] [address] [facility] [address] Performing Lab: [facility] [address] [facility] [address] DILANTIN 19.7 ug/mL 10.0-20.0 Dec 31, 2023 10:06 AM [facility] TSH Specimen Type: SERUM Comment: , Tests performed on [employer] Craven SN:[id number] ([id number]) TSH within normal limits. Reflex testing not required. Ordering Provider: NATE BOLANOS Report Released Date/Time: Dec 31, 2023 09:37 AM Reporting Lab: [facility] [address] [facility] [address] Performing Lab: [facility] [address] [facility] [address] TSH 3.45 u[IU]/mL 0.35-5.00 Advance Directives: All historical and current [...] the Encounter. Date/Time Encounter Note(s) Provider Source Jan 21, 2024 01:55 PM LETTERS: LOCAL TITLE: LETTER TO PATIENT ATTEMPT TO CONTACT STANDARD TITLE: LETTERS DATE OF NOTE: JAN 21, 2024@13:55 ENTRY DATE: JAN 21, 2024@13:55:25 AUTHOR: BETTYE GASTELUM EXP COSIGNER: URGENCY: STATUS: COMPLETED [facility] [address] [place] [address] JAN 21, 2024 [address] [place] [id number] Dear BISMARK HAYWARD, [facility] in [place] is trying to reach you to schedule an appointment. If you have already been in contact with the clinic and scheduled an appointment you may disregard this letter. If we do not hear from you within 14 days, we will assume you no longer desire an appointment. Please call one of the numbers provided below so that we may find a suitable date for you: Service: Vascular Service Direct: [phone] Ext: [phone] Toll Free: [phone] Ext: [phone] We look forward to hearing from you. Sincerely, Clinical Operations BETTYE GASTELUM [facility]
--- OUTSIDE RECORDS SUMMARY | 2024-04-14 13:58 | XMS_ITS | Encounter Summary ---
Author Name [facility] [place] [facility] [place] Organization [facility] [place] Address [address] [place] [address] Care Team Providers Care Dump Motor Operator Name Role Phone NATE BOLANOS Primary Care Provider Ochoaabl e Selected Encounter This section includes the information on record at [place] for the Encounter. Date/Time Encounter Type Encounter Description Reason Provider Source Jan 17, 2024 03:49 PM Outpatient Encounter PRIMARY CARE/MEDICINE IGNACIO ROSENBERG Encounter Template Text not used by [place] Plan of Treatment: Future Appointments (+ 6 months) and Future Tests (+/- 45 days) The Plan of Treatment section includes future care activities for the patient from all [place] treatmentfacilities. This section includes future appointments and future orders which are active, pending or scheduled. Future Appointments This section includes appointments that were scheduled to occur 6 months from the date of the Encounter, up to a maximum of 20 appointments. The data comes from all [place] treatment facilities. Appointment Date/Time Appointment Type Appointme nt Facility Name Mar 05, 2024 12:37 PM AMBULATORY - MEDICINE [facility] Cruz [facility] Mar 11, 2024 08:00 AM AMBULATORY - SURGERY [facility] Mar 11, 2024 09:30 AM AMBULATORY - SURGERY [facility] Apr 02, 2024 12:30 PM [place] [facility] Apr 04, 2024 10:00 AM [place] [facility] Apr 07, 2024 09:45 AM AMBULATORY - NONE [facility] Apr 08, 2024 11:15 AM [place] [facility] Apr 09, 2024 10:30 AM [place] [facility] Apr 10, 2024 09:15 AM [place] [facility] Apr 10, 2024 09:30 AM [place]ORY - NONE [place] [facility] Apr 10, 2024 12:00 PM [place] [facility] Apr 10, 2024 01:00 PM [place] [facility] Apr 14, 2024 07:00 AM [place]ULATORY - [place]ONE [place] [facility] Apr 15, 2024 10:45 AM [place] [facility] Apr 21, 2024 11:00 AM [place] [facility] Jun 11, 2024 09:00 AM [place] [facility] Jun 18, 2024 09:00 AM [place] [facility] Jun 25, 2024 09:00 AM [place] [facility] Jul 02, 2024 09:00 AM [place] [facility] Jul 09, 2024 09:00 AM [place] [facility] Active, Pending, and Scheduled Orders This section includes a listing of several types of active, pending, and scheduled orders, including clinic medications orders, diagnostic test orders, procedure orders and consult orders; where the start date of the order is 45 days before the date of the Encounter or 45 days after the date of theEncounter. The data comes from all [place] treatment facilities. Test Date/Time Test Type Test Details Facility Name Dec 31, 2023 10:27 AM Consult Order MOVE! OUTP ATIENT Cons [place]ock Maker's Choice [facility] Lab Results: +/- 30 days of [...] Range Comment Dec 31, 2023 10:06 AM [facility] LAMOTRIGINE(Q) Specimen Type: SERUM Comment: This test was developed and its analytical performance characteristics have been determined by [place]. It has not been cleared or approved by the U.S. Food and Drug Administration. This assay has been validated pursuant to the CLIA regulations and is used for clinical purposes. Test Performed by [employer], [employer] [facility], [address] [place] [address] Leland Gamble M.D., Ph.D., Director of Laboratories , CLIA [id number] Ordering Provider: NATE BOLANOS Report Released Date/Time: Dec 31, 2023 09:36 AM Reporting Lab: [facility] [address] [facility] [address] Performing Lab: [address] LAMOTRIGINE(Q) 4.8 ug/mL 2.5-15.0 Dec 31, 2023 10:06 AM [facility] LIPOPROTEIN CHOLESTEROL FRACT. PANEL Specimen Type: PLASMA Comment: , Tests performed on Hotel[employer] SN:[id number]). Ordering Provider: NATE BOLANOS Report Released Date/Time: Dec 20, 2023 11:26 AM Reporting [facility] [address] [facility] [address] [facility]forming Lab: [facility] [address] [facility] [address] CHOLESTEROL 171 mg/dL 0-200 TRIGLYCERIDE 55 mg/dL 0-150 HDL CHOLESTEROL 60 mg/dL >40 LDL CHOLESTEROL (CALC) 100 mg/dL 0-129 Dec 31, 2023 10:06 AM [facility] LIVER PROFILE Specimen Type: PLASMA Comment: , Tests performed on Hotelzilla SN:[id number] (405). Ordering Provider: NATE BOLANOS Report Released Date/Time: Dec 20, 2023 11:26 AM Reporting [facility] [address] [facility] [address] Performing Lab: [facility] [address] [place] [id number] PROTEIN, TOTAL 7.8 g/dL 6.0-8.5 ALBUMIN 4.3 g/dL 3.2-5.0 BILIRUBIN, TOTAL 0.4 mg/dL 0.2-1.2 ALKALINE PHOSPHATASE 144 U/L 40-150 ALT(SGPT) 37 U/L 7-52 AST(SGOT) 30 U/L 5-34 FIB-4 SCORE 0.92 <2.67 Dec 31, 2023 10:06 AM [facility] CBC NO DIFF Specimen Type: BLOOD No comment entered. Ordering Provider: NATE BOLANOS Report Released Date/Time: Dec 20, 2023 11:26 AM Reporting Lab: [facility] [address] [place] [id number] Performing Lab: [place] [phone] WBC 6.2 10*3/uL 4.5-11.0 RBC 5.13 10*6/uL 4.23-5.66 HGB 16.3 g/dL 12.8-17 HEMATOCRIT 47.6 39.2-50.4 MCV 92.8 fL 82-99 MCH 31.8 pg 26.2-32.6 MCHC 34.2 g/dL 30.8-35.1 PLT 263 10*3/uL 140-360 MPV 9.9 fL 9.2-12.4 RDW 11.8 L 12.0-16.0 Dec 31, 2023 10:06 AM [facility] P4 GLU,BUN,CREAT,LYTES,CA Specimen Type: PLASMA Comment: , Tests performed on Hotelzilla SN:[id number] (405). Ordering Provider: NATE BOLANOS Report Released Date/Time: Dec 20, 2023 11:26 AM Reporting Lab: [facility] [address] [place] [phone] Performing Lab: [place] [phone] UREA NITROGEN 20 mg/dL 7-25 SODIUM 137 mmol/L 135-145 POTASSIUM 4.6 mmol/L 3.5-5.0 CHLORIDE 105 mmol/L 100-110 CARBON DIOXIDE 21 mmol/L 20-30 ANION GAP 11 4-16 GLUCOSE 86 mg/dL 65-100 CREATININE 1.00 mg/dL 0.50-1.50 CALCIUM 10.3 mg/dL 8.5-10.5 eGFR(CKD-EPI 2020) >90 mL/min See_Commen t Dec 31, 2023 10:06 AM [facility] DILANTIN Specimen Type: SERUM Comment: LAST DOSE 8:00 AM 12/31/23 , Tests performed on Rose [employer] SN:[id number] (405). Ordering Provider: NATE BOLANOS Report Released Date/Time: Dec 31, 2023 09:36 AM Reporting Lab: [facility] [address] [facility] [address] Performing Lab: [facility] [address] [facility] [address] DILANTIN 19.7 ug/mL 10.0-20.0 Dec 31, 2023 10:06 AM [facility] TSH Specimen Type: SERUM Comment: , Tests performed on Rose Hopela SN:[id number] (405) TSH within normal limits. Reflex testing not required. Ordering Provider: NATE BOLANOS Report Released Date/Time: Dec 31, 2023 09:37 AM Reporting Lab: [place] [facility] [address] [facility] [address] Performing Lab: [facility] [address] [facility] [address] TSH 3.45 u[IU]/mL 0.35-5.00 Dec 31, 2023 10:06 AM [facility] GLYCOHEMOGLOBIN (A1C ONLY) Specimen Type: BLOOD Comment: , Tests performed on Rose Artify It Craven SN:[id number] (405) Values obtained from A1C measurements can vary. For typical A1C assays, a reported value of 7.0 could actually be between 6.72 and 7.28 if measured by a reference method. A reported value of 9.0 could actually be between 8.73 and 9.27. Ref: http://www.ngsp. org/CAPdata.asp Ordering Provider: NATE BOLANOS Report Released Date/Time: Dec 20, 2023 11:26 AM Reporting Lab: [facility] [address] [facility] [address] Performing Lab: [facility] [address] [facility] [address] HEMOGLOBIN A1C 5.3 4.0-5.6 Advance Directives: All historical and current Section Date Range: From patient's date of to the date document was created. This section includes ALL of a patient's completed or amended [place] Advance and Rescinded Directives. The entries below indicate that a directive exists for the patient, but an actual copy is not included with this document. The data comes from all [place] facilities. Date Advance Directives Provider Source May 18, 2021 ADVANCE DIRECTIVE RICHARD DAN [facility] Encounter Notes: All associated encounter notes This section contains the clinical notes associated to the Encounter. Date/Time Encounter Note(s) Provider Source Jan 17, 2024 03:49 PM PRIMARY CARE Jolicloud E MESSAGING: LOCAL TITLE: PRIMARY CARE SECURE MESSAGING STANDARD TITLE: PRIMARY CARE SECURE MESSAGING DATE OF NOTE: JAN 17, 2024@15:49 ENTRY DATE: JAN 17, 2024@16:49:42 AUTHOR: IGNACIO ROSENBERG EXP COSIGNER: URGENCY: STATUS: COMPLETED ------Original Message ------- Sent: 01/17/2024 04:49 PM ET From: IGNACIO ROSENBERG To: BISMARK HAYWARD Subject: General:General Inquiry consult is in place and active-awaiting scheduling. Please contact clinic with any further questions or concerns. /garrick/ IGNACIO ROSENBERG RN Signed: 01/17/2024 16:49 IGNACIO ROSENBERG [facility]
--- OUTSIDE RECORDS SUMMARY | 2024-04-14 13:59 | XMS_ITS | Encounter Summary ---
Author Name [facility] [place] Organization [place] Address [address] [place] [address] Care Team Providers Care Heat Treatment Technician Name Role Phone LUIS MIGUEL NATE Primary Care Provider Unavailabl e Selected Encounter This section includes the information on record at [place] for the Encounter. Date/Time Encounter Type Encounter Description Reason Provider Source Jan 16, 2024 10:09 AM Outpatient Encounter PRIMARY CARE/MEDICINE SAE DOWD Encounter Template Text not used by [place] [...] 05, 2024 12:37 PM AMBULATORY - MEDICINE [facility] Mar 11, 2024 08:00 AM AMBULATORY - SURGERY [facility] Mar 11, 2024 09:30 AM AMBULATORY - SURGERY [facility] Apr 02, 2024 12:30 PM [facility] Apr 04, 2024 10:00 AM [place] [facility] Apr 07, 2024 09:45 AM AMBULATORY - NONE [facility] Apr 08, 2024 11:15 AM [place] [facility] Apr 09, 2024 10:30 AM [place] [facility] Apr 10, 2024 09:15 AM [place] [facility] Apr 10, 2024 09:30 AM [place] [facility] Apr 10, 2024 12:00 PM [place] [facility] Apr 10, 2024 01:00 PM [place] [facility] Apr 14, 2024 07:00 AM [place] [facility] Apr 15, 2024 10:45 AM [place] [facility] Apr 21, 2024 11:00 AM [place] [facility] Jun 11, 2024 09:00 AM [place] [facility] Jun 18, 2024 09:00 AM [place] [facility] Jun 25, 2024 09:00 AM [place] [facility] Jul 02, 2024 09:00 AM [place] [facility] Jul 09, 2024 09:00 AM [place] [facility] Active, Pending, and Scheduled Orders This section includes a listing of several types of active, pending, and scheduled orders, including clinic medications orders, diagnostic test orders, procedure orders and consult orders; where the start date of the order is 45 days before the date of the Encounter or 45 days after the date of theEncounter. The data comes from all [place] treatment facilities. Test Date/Time Test Type Test Details Facility Name Dec 31, 2023 10:27 AM Consult Order MOVE! OUTP ATIENT Cons Appian Developer's Choice [place] [facility] Lab Results: +/- 30 days of [...] Range Comment Dec 31, 2023 10:06 AM [facility] LAMOTRIGINE(Q) Specimen Type: SERUM Comment: This test was developed and its analytical performance characteristics have been determined by [employer] [place], [place]. It has not been cleared or approved by the U.S. Food and Drug Administration. This assay has been validated pursuant to the CLIA regulations and is used for clinical purposes. Test Performed by [employer] [place], [facility], [address] [place], [place] Leland Gamble M.D., Ph.D., Director of Laboratories , CLIA [id number] Ordering Provider: NATE BOLANOS Report Released Date/Time: Dec 31, 2023 09:36 AM Reporting Lab: [facility] [address] [facility] [address] Performing Lab: [facility] [address] [facility] LAMOTRIGINE(Q) 4.8 ug/mL 2.5-15.0 Dec 31, 2023 10:06 AM [facility] CBC NO DIFF Specimen Type: BLOOD No comment entered. Ordering Provider: NATE BOLANOS Report Released Date/Time: Dec 20, 2023 11:26 AM Reporting Lab: [facility] [address] [facility] [address] Performing Lab: [facility] [address] [facility] [address] WBC 6.2 10*3/uL 4.5-11.0 RBC 5.13 10*6/uL 4.23-5.66 HGB 16.3 g/dL 12.8-17 HEMATOCRIT 47.6 39.2-50.4 MCV 92.8 fL 82-99 MCH 31.8 pg 26.2-32.6 MCHC 34.2 g/dL 30.8-35.1 PLT 263 10*3/uL 140-360 MPV 9.9 fL 9.2-12.4 RDW 11.8 L 12.0-16.0 Dec 31, 2023 10:06 AM [facility] P4 GLU,BUN,CREAT,LYTES,CA Specimen Type: PLASMA Comment: , Tests performed on Rose Otolaryngology Surgeon Jarett SN:[id number] (405). Ordering Provider: NATE BOLANOS Report Released Date/Time: Dec 20, 2023 11:26 AM Reporting Lab: [facility] [address] [facility] [address] Performing Lab: [facility] [address] [place] [phone] UREA NITROGEN 20 mg/dL 7-25 SODIUM 137 mmol/L 135-145 POTASSIUM 4.6 mmol/L 3.5-5.0 CHLORIDE 105 mmol/L 100-110 CARBON DIOXIDE 21 mmol/L 20-30 ANION GAP 11 4-16 GLUCOSE 86 mg/dL 65-100 CREATININE 1.00 mg/dL 0.50-1.50 CALCIUM 10.3 mg/dL 8.5-10.5 eGFR(CKD-EPI 2020) >90 mL/min See_Commen t Dec 31, 2023 10:06 AM [facility] LIVER PROFILE Specimen Type: PLASMA Comment: , Tests performed on Rose Otolaryngology Surgeon Jarett SN:[id number] (405). Ordering Provider: NATE BOLANOS Report Released Date/Time: Dec 20, 2023 11:26 AM Reporting Lab: [facility] [address] [facility] [address] Performing Lab: [facility] [address] [place] [address] PROTEIN, TOTAL 7.8 g/dL 6.0-8.5 ALBUMIN 4.3 g/dL 3.2-5.0 BILIRUBIN, TOTAL 0.4 mg/dL 0.2-1.2 ALKALINE PHOSPHATASE 144 U/L 40-150 ALT(SGPT) 37 U/L 7-52 AST(SGOT) 30 U/L 5-34 FIB-4 SCORE 0.92 <2.67 Dec 31, 2023 10:06 AM [facility] DILANTIN Specimen Type: SERUM Comment: LAST DOSE 8:00 AM 12/31/23 , Tests performed on Rose Sonalight Jarett SN:[id number] (405). Ordering Provider: NATE BOLANOS Report Released Date/Time: Dec 31, 2023 09:36 AM Reporting Lab: [facility] [address] [facility] [address] Performing Lab: [facility] [address] [facility] [address] DILANTIN 19.7 ug/mL 10.0-20.0 Dec 31, 2023 10:06 AM [facility] LIPOPROTEIN CHOLESTEROL FRACT. PANEL Specimen Type: PLASMA Comment: , Tests performed on Rose Sonalight Jarett SN:[id number] (405). Ordering Provider: NATE BLOANOS Report Released Date/Time: Dec 20, 2023 11:26 AM Reporting Lab: [facility] [address] [facility] [address] Performing Lab: [facility] [address] [facility] [address] CHOLESTEROL 171 mg/dL 0-200 TRIGLYCERIDE 55 mg/dL 0-150 HDL CHOLESTEROL 60 mg/dL >40 LDL CHOLESTEROL (CALC) 100 mg/dL 0-129 Dec 31, 2023 10:06 AM [facility] GLYCOHEMOGLOBIN (A1C ONLY) Specimen Type: BLOOD Comment: , Tests performed on Rose Sonalight Craven SN:[id number] (405) Values obtained from A1C measurements can vary. For typical A1C assays, a reported value of 7.0 could actually be between 6.72 and 7.28 if measured by a reference method. A reported value of 9.0 could actually be between 8.73 and 9.27. Ref: http://www.ngsp. org/CAPdata.asp Ordering Provider: NATE BOLANOS Report Released Date/Time: Dec 20, 2023 11:26 AM Reporting Lab: [facility] [address] [facility] [address] Performing Lab: [facility] [address] [facility] [address] HEMOGLOBIN A1C 5.3 4.0-5.6 Dec 31, 2023 10:06 AM [facility] TSH Specimen Type: SERUM Comment: , Tests performed on Rose Sonalight Craven SN:[id number] (405) TSH within normal limits. Reflex testing not required. Ordering Provider: NATE BOLANOS Report Released Date/Time: Dec 31, 2023 09:37 AM Reporting Lab: [facility] [address] [facility] [address] Performing Lab: [facility] [address] [facility] [address] TSH 3.45 u[IU]/mL 0.35-5.00 Advance Directives: All [...] May 18, 2021 ADVANCE DIRECTIVE RICHARD DAN [facility] Encounter Notes: All associated encounter notes This section contains the clinical notes associated to the Encounter. Date/Time Encounter Note(s) Provider Source Jan 16, 2024 10:09 AM PRIMARY CARE [employer] E MESSAGING: LOCAL TITLE: PRIMARY CARE SECURE MESSAGING STANDARD TITLE: PRIMARY CARE SECURE MESSAGING DATE OF NOTE: JAN 16, 2024@10:09 ENTRY DATE: JAN 16, 2024@11:09:01 AUTHOR: SAE DOWD EXP COSIGNER: URGENCY: STATUS: COMPLETED PRIMARY CARE SECURE MESSAGING Has ADDENDA ------Original Message -- Sent: 01/16/2024 11:05 AM ET From: BISMARK HAYWARD To: Maribel BOLANOS_PRIMARYCARE_LIT Subject: General:General Inquiry Thank you I have talked with move. Still no word from vascular. /garrick/ SAE GUZMAN Signed: 01/16/2024 11:09 Receipt Acknowledged By: 01/17/2024 16:00 /garrick/ CARROLL PETTY LPN 01/17/2024 16:50 /ayla ROSENBERG RN 01/17/2024 ADDENDUM STATUS: COMPLETED consult is in place and active awaiting scheduling /ayla PETTY LPN Signed: 01/17/2024 16:00 01/17/2024 ADDENDUM STATUS: COMPLETED secure message sent /ayla ROSENBERG RN Signed: 01/17/2024 16:50 SAE DOWD [facility]
--- OUTSIDE RECORDS SUMMARY | 2024-04-14 14:00 | XMS_ITS | Encounter Summary ---
Author Name [facility] Address [address] [place] [address] Care Team Providers Care Geospatial Technologist Name Role Phone LUIS MIGUEL NATE Primary Care Provider Unavailabl e Selected Encounter This section includes the information on record at DC for the Encounter. Date/Time Encounter Type Encounter Description Reason Provider Source Dec 03, 2023 03:31 PM Outpatient Encounter PRIMARY CARE/MEDICINE SHANNON WEISS Encounter Template Text not used by DC Plan of Treatment: Future Appointments (+ 6 months) and Future Tests (+/- 45 days) The Plan of Treatment section includes future care activities for the patient from all [place] treatmentfacilities. This section includes future appointments and future orders which are active, pending or scheduled. Future Appointments This section includes appointments that were scheduled to occur 6 months from the date of the Encounter, up to a maximum of 20 appointments. The data comes from all [place] treatment facilities. Appointment Date/Time Appointment Type Appointme nt Facility Name Dec 24, 2023 11:30 AM AMBULATORY - MEDICINE AZALEA BOWEN [facility] Dec 31, 2023 09:30 AM AMBULATORY - NONE ERAN ZABALA [facility] Dec 31, 2023 09:30 AM AMBULATORY - MEDICINE [place] [place] [facility] Jan 14, 2024 10:30 AM AMBULATORY - MEDICINE [facility] Cruz BOWEN [facility] Mar 05, 2024 12:37 PM [facility] [place] [facility] [facility] Mar 11, 2024 08:00 AM AMBULATORY - [place] [facility] Mar 11, 2024 09:30 AM AMBULATORY - SURGERY [facility] Apr 02, 2024 12:30 PM [facility]IC[facility] [place] [facility] Apr 04, 2024 10:00 AM [facility]IC[facility] [place] [facility] Apr 07, 2024 09:45 AM AMBULATORY - NONE [facility] Apr 08, 2024 11:15 AM [facility] [place] [facility] Apr 09, 2024 10:30 AM AMBULATORY - SURGERY [facility] Apr 10, 2024 09:15 AM AMBULATORY - SURGERY [facility] Apr 10, 2024 09:30 AM [facility]ORY - NONE [facility] [place] [facility] [facility] Apr 10, 2024 12:00 PM AMBULATORY - SURGERY [facility] Apr 10, 2024 01:00 PM [facility]IC[facility] [place] [facility] Apr 14, 2024 07:00 AM AM[facility]ATORY - NONE [facility] [place] [facility] Apr 15, 2024 10:45 AM [facility]UL[facility]ORY - MEDICINE [facility] Apr 21, 2024 11:00 AM AMBULATORY - MEDICINE [place] [facility] Active, Pending, and Scheduled Orders This section [...] AM Consult Order MOVE! OUTP ATIENT Cons Manager Entry's Choice [facility] Lab Results: +/- 30 days of the [...] Range Comment Dec 31, 2023 10:06 AM [facility] LAMOTRIGINE(Q) Specimen Type: SERUM Comment: This test was developed and its analytical performance characteristics have been determined by [employer]. It has not been cleared or approved by the U.S. Food and Drug Administration. This assay has been validated pursuant to the CLIA regulations and is used for clinical purposes. Test Performed by [facility], [employer] [facility], [address] [place] [address] Leland Gamble M.D., Ph.D., Director of Laboratories , CLIA [id number] Ordering Provider: NATE BOLANOS Report Released Date/Time: Dec 31, 2023 09:36 AM Reporting Lab: [facility] [address] [facility] [address] Performing Lab: [address] LAMOTRIGINE(Q) 4.8 ug/mL 2.5-15.0 Dec 31, 2023 10:06 AM [facility] LIPOPROTEIN CHOLESTEROL FRACT. PANEL Specimen Type: PLASMA Comment: , Tests performed on Rose Fotomoto SN:[id number] (405). Ordering Provider: NATE BOLANOS Report Released Date/Time: Dec 20, 2023 11:26 AM Reporting Lab: [facility] [address] [facility] [address] Performing Lab: [facility] [address] [facility] [address] CHOLESTEROL 171 mg/dL 0-200 TRIGLYCERIDE 55 mg/dL 0-150 HDL CHOLESTEROL 60 mg/dL >40 LDL CHOLESTEROL (CALC) 100 mg/dL 0-129 Dec 31, 2023 10:06 AM [facility] P4 GLU,BUN,CREAT,LYTES,CA Specimen Type: PLASMA Comment: , Tests performed on Rose Fotomoto SN:[id number] (405). Ordering Provider: NATE BOLANOS Report Released Date/Time: Dec 20, 2023 11:26 AM Reporting [facility] [address] [facility] [address] Performing Lab: [facility] [address] [facility] [address] UREA NITROGEN 20 mg/dL 7-25 SODIUM 137 mmol/L 135-145 POTASSIUM 4.6 mmol/L 3.5-5.0 CHLORIDE 105 mmol/L 100-110 CARBON DIOXIDE 21 mmol/L 20-30 ANION GAP 11 4-16 GLUCOSE 86 mg/dL 65-100 CREATININE 1.00 mg/dL 0.50-1.50 CALCIUM 10.3 mg/dL 8.5-10.5 eGFR(CKD-EPI 2020) >90 mL/min See_Commen t Dec 31, 2023 10:06 AM [facility] CBC NO DIFF Specimen Type: BLOOD No comment entered. Ordering Provider: NATE BOLANOS Report Released Date/Time: Dec 20, 2023 11:26 AM Reporting Lab: [facility] [address] [facility] [address] Performing Lab: [facility] [address] [place] [address] WBC 6.2 10*3/uL 4.5-11.0 RBC 5.13 10*6/uL 4.23-5.66 HGB 16.3 g/dL 12.8-17 HEMATOCRIT 47.6 39.2-50.4 MCV 92.8 fL 82-99 MCH 31.8 pg 26.2-32.6 MCHC 34.2 g/dL 30.8-35.1 PLT 263 10*3/uL 140-360 MPV 9.9 fL 9.2-12.4 RDW 11.8 L 12.0-16.0 Dec 31, 2023 10:06 AM [facility] GLYCOHEMOGLOBIN (A1C ONLY) Specimen Type: BLOOD Comment: , Tests performed on Rose [employer] SN:[id number] (197) Values obtained from A1C measurements can vary. [...] [facility] [address] [place] [id number] Performing Lab: [facility] [address] [facility] [address] HEMOGLOBIN A1C 5.3 4.0-5.6 Dec 31, 2023 10:06 AM [facility] LIVER PROFILE Specimen Type: PLASMA Comment: , Tests performed on Rose [employer] Jarett SN:[id number] (405). Ordering Provider: NATE BOLANOS Report Released Date/Time: Dec 20, 2023 11:26 AM Reporting Lab: [facility] [address] [facility] [address] Performing Lab: [facility] [address] [facility] [address] PROTEIN, TOTAL 7.8 g/dL 6.0-8.5 ALBUMIN 4.3 g/dL 3.2-5.0 BILIRUBIN, TOTAL 0.4 mg/dL 0.2-1.2 ALKALINE PHOSPHATASE 144 U/L 40-150 ALT(SGPT) 37 U/L 7-52 AST(SGOT) 30 U/L 5-34 FIB-4 SCORE 0.92 <2.67 Dec 31, 2023 10:06 AM [facility] DILANTIN Specimen Type: SERUM Comment: LAST DOSE 8:00 AM 12/31/23 , Tests performed on Rose [employer] Jarett SN:[id number] (405). Ordering Provider: NATE BOLANOS Report Released Date/Time: Dec 31, 2023 09:36 AM Reporting Lab: [facility] [address] [facility] [address] Performing Lab: [facility] [address] [facility] [address] DILANTIN 19.7 ug/mL 10.0-20.0 Dec 31, 2023 10:06 AM [facility] TSH Specimen Type: SERUM Comment: , Tests performed on Rose [employer] Craven SN:[id number] (405) TSH within normal limits. Reflex testing not required. Ordering Provider: NATE BOLANOS Report Released Date/Time: Dec 31, 2023 09:37 AM Reporting Lab: [facility] [address] [facility] [address] Performing Lab: [facility] [address] [facility] [address] TSH 3.45 u[IU]/mL 0.35-5.00 Dec 06, 2023 08:00 AM [facility] OCCULT BLOOD FIT X1 SCREEN([facility]) Specimen Type: FECES Comment: Tests performed on [employer] Auto Micro 80(405) Ordering Provider: NATE BOLANOS Report Released Date/Time: Nov 07, 2023 01:34 PM Reporting Lab: [facility] [address] [facility] [address] Performing Lab: [facility] [address] [facility] [address] OCCULT BLOOD(FIT)#1 OF 1([facility]) Negative Negative Advance Directives: All historical and [...] Encounter. Date/Time Encounter Note(s) Provider Source Dec 21, 2023 01:49 PM ADDENDUM: LOCAL TITLE: Addendum STANDARD TITLE: ADDENDUM DATE OF NOTE: DEC 21, 2023@13:49:21 ENTRY DATE: DEC 21, 2023@13:49:22 AUTHOR: MARIANA GUNDEROSN EXP COSIGNER: URGENCY: STATUS: COMPLETED will place RTC for CPP visit for BP management /es/ MARIANA GUNDERSON, PHARMD Clinical Pharmacist Practitioner Signed: 12/21/2023 13:49 Receipt Acknowledged By: 12/24/2023 13:33 /garrick/ SHANNON WEISS RN CMSRN REGISTERED NURSE === --- Original Document --- 12/21/23 PRIMARY CARE SECURE MESSAGING: ------Original Message ------ Sent: 12/21/2023 09:08 AM ET From: COLE MAR To: Maribel BOLANOS_[facility]_LIT Subject: General:General: FIT TEST & HTN I have tracked my b/p for the last week and wanted to send you the results, I did a morning and a night. 12/08 130/97 136/99 12/09 148/94 142/91 12/10 138/96 143/97 12/11 120/90 123/102 12/12 120/93 136/93 12/13 120/91 136/99 12/14 126/112 136/88 I will keeo tracking it off and on till my appointment if that works. thank you Cole /garrick/ SAE GUZMAN Signed: 12/21/2023 09:38 12/21/2023 ADDENDUM STATUS: COMPLETED HTN Assess for Elevated BP>=140/90: Patient reported blood pressure Systolic BP 136 Diastolic BP 88 The patient's blood pressure is usually adequately controlled. No medication changes are indicated at this time. The patient was counseled on the importance of regular exercise and/or physical activity in the control of blood pressure. The patient was counseled on the importance of diet and weight loss/ control in the regulation of blood pressure. /garrick/ [facility] REGISTERED NURSE Signed: 12/21/2023 13:40 12/21/2023 ADDENDUM STATUS: COMPLETED HTN Assess for Elevated BP>=140/90: Patient reported blood pressure Systolic BP 136 Diastolic BP 88 Additional comment Comment: will refer to [facility] for follow-up Patient referred to [facility]CT pharmacist for hypertension treatment. Comment: consistant readings >130/90 The patient was counseled on the importance of regular exercise and/or physical activity in the control of blood pressure. The patient was counseled on the importance of diet and weight loss/ control in the regulation of blood pressure. The contribution of dietary sodium to elevated blood pressure was reviewed. The patient was counseled to have a goal sodium intake of 1500mg per day, with no more than 2300mg per day. /garrick/ SH[facility] WEISS [facility] REGISTERED NURSE Signed: 12/21/2023 13:45 Receipt Acknowledged By: 12/21/2023 13:49 /ayla GUNDERSON PHARMD Clinical Pharmacist Practitioner MARIANA GUNDERSON [facility] Dec 21, 2023 01:42 PM ADDENDUM: LOCAL TITLE: Addendum STANDARD TITLE: ADDENDUM DATE OF NOTE: DEC 21, 2023@13:42:27 ENTRY DATE: DEC 21, 2023@13:42:28 AUTHOR: SHANNON WEISS EXP COSIGNER: URGENCY: STATUS: COMPLETED HTN Assess for Elevated BP>=140/90: Patient reported blood pressure Systolic BP 136 Diastolic BP 88 Additional comment Comment: will refer to [facility] for follow-up Patient referred to [facility]CT pharmacist for hypertension treatment. Comment: consistant readings >130/90 The patient was counseled on the importance of regular exercise and/or physical activity in the control of blood pressure. The patient was counseled on the importance of diet and weight loss/ control in the regulation of blood pressure. The contribution of dietary sodium to elevated blood pressure was reviewed. The patient was counseled to have a goal sodium intake of 1500mg per day, with no more than 2300mg per day. /garrick/ SHANNON WEISS RN CMSRN REGISTERED NURSE Signed: 12/21/2023 13:45 Receipt Acknowledged By: 12/21/2023 13:49 /ayla GUNDERSON PHARMD Clinical Pharmacist Practitioner === --- Original Document --- 12/21/23 PRIMARY CARE SECURE MESSAGING: ------Original Message ------ Sent: 12/21/2023 09:08 AM ET From: COLE MAR To: Maribel BOLANOS_PRIMARYCARE_LIT Subject: General:General: FIT TEST & HTN I have tracked my b/p for the last week and wanted to send you the results, I did a morning and a night. 12/08 130/97 136/99 12/09 148/94 142/91 12/10 138/96 143/97 12/11 120/90 123/102 12/12 120/93 136/93 12/13 120/91 136/99 12/14 126/112 136/88 I will keeo tracking it off and on till my appointment if that works. thank you Cole /garrick/ SAE GUZMAN Signed: 12/21/2023 09:38 12/21/2023 ADDENDUM STATUS: COMPLETED HTN Assess for Elevated BP>=140/90: Patient reported blood pressure Systolic BP 136 Diastolic BP 88 The patient's blood pressure is usually adequately controlled. No medication changes are indicated at this time. The patient was counseled on the importance of regular exercise and/or physical activity in the control of blood pressure. The patient was counseled on the importance of diet and weight loss/ control in the regulation of blood pressure. /garrick/ SHANNON WEISS RN [facility] REGISTERED NURSE Signed: 12/21/2023 13:40 12/21/2023 ADDENDUM STATUS: UNSIGNED You may not VIEW this UNSIGNED Addendum. SHANNON WEISS [facility] Dec 21, 2023 08:38 AM PRIMARY CARE [employer] MESSAGING: LOCAL TITLE: PRIMARY CARE SECURE MESSAGING STANDARD TITLE: PRIMARY CARE SECURE MESSAGING DATE OF NOTE: DEC 21, 2023@08:38 ENTRY DATE: DEC 21, 2023@09:38:39 AUTHOR: SAE DOWD EXP COSIGNER: URGENCY: STATUS: COMPLETED PRIMARY CARE SECURE MESSAGING Has ADDENDA ------Original Message ------ Sent: 12/21/2023 09:08 AM ET From: COLE MAR To: Maribel BOLANOS_PRIMARYCARE_LIT Subject: General:General: FIT TEST & HTN I have tracked my b/p for the last week and wanted to send you the results, I did a morning and a night. 12/08 130/97 136/99 12/09 148/94 142/91 12/10 138/96 143/97 3/20 120/90 123/102 12/12 120/93 136/93 12/13 120/91 136/99 12/14 126/112 136/88 I will keeo tracking it off and on till my appointment if that works. thank you Cole /garrick/ SAE GUZMAN Signed: 12/21/2023 09:38 12/21/2023 ADDENDUM STATUS: COMPLETED HTN Assess for Elevated BP>=140/90: Patient reported blood pressure Systolic BP 136 Diastolic BP 88 The patient's blood pressure is usually adequately controlled. No medication changes are indicated at this time. The patient was counseled on the importance of regular exercise and/or physical activity in the control of blood pressure. The patient was counseled on the importance of diet and weight loss/ control in the regulation of blood pressure. /garrick/ SHANN[facility] WEISS RN [facility] REGISTERED NURSE Signed: 12/21/2023 13:40 12/21/2023 ADDENDUM STATUS: COMPLETED HTN Assess for Elevated BP>=140/90: Patient reported blood pressure Systolic BP 136 Diastolic BP 88 Additional comment Comment: will refer to [facility] for follow-up Patient referred to [facility]CT pharmacist for hypertension treatment. Comment: consistant readings >130/90 The patient was counseled on the importance of regular exercise and/or physical activity in the control of blood pressure. The patient was counseled on the importance of diet and weight loss/ control in the regulation of blood pressure. The contribution of dietary sodium to elevated blood pressure was reviewed. The patient was counseled to have a goal sodium intake of 1500mg per day, with no more than 2300mg per day. /garrick/ SHANN[facility] WEISS RN [facility] REGISTERED NURSE Signed: 12/21/2023 13:45 Receipt Acknowledged By: 12/21/2023 13:49 /ayla GUNDERSON PHARMD Clinical Pharmacist Practitioner 12/21/2023 ADDENDUM STATUS: COMPLETED will place RTC for CPP visit for BP management /ayla GUNDERSON PHARMD Clinical Pharmacist Practitioner Signed: 12/21/2023 13:49 Receipt Acknowledged By: * AWAITING SIGNATURE * SHANNON WEISS PAMELA [place] [facility] Dec 03, 2023 04:11 PM PRIMARY CARE SECUR E MESSAGING: LOCAL TITLE: PRIMARY CARE SECURE MESSAGING STANDARD TITLE: PRIMARY CARE SECURE MESSAGING DATE OF NOTE: DEC 03, 2023@16:11 ENTRY DATE: DEC 03, 2023@17:11:16 AUTHOR: SHANNON WEISS EXP COSIGNER: URGENCY: STATUS: COMPLETED ------Original Message ------ Sent: 12/03/2023 05:09 PM ET From: COLE MAR To: Frandy BOLANOSPRIMARYCARE_LIT Subject: General:General: FIT TEST & HTN Oh ok. Yes I got it. Just have to remember to do it. I put it in bathroom and still forget to after. I will get it done and mailed this week ------Original Message ------ Sent: 12/03/2023 05:11 PM ET From: SHANNON WEISS To: COLE MAR Subject: General:General: FIT TEST & HTN Thank you very much:) Have a wonderful evening Kindly- Shannon Weiss RN [facility] PACT TEAM RN EXT [id number] /es/ [facility] REGISTERED NURSE Signed: 12/03/2023 17:11 SHANNON WEISS [facility] Dec 03, 2023 04:04 PM PRIMARY CARE SECUR E MESSAGING: [facility] TITLE: PRIMARY CARE SECURE MESSAGING STANDARD TITLE: PRIMARY CARE SECURE MESSAGING DATE OF NOTE: DEC 03, 2023@16:04 ENTRY DATE: DEC 03, 2023@17:04:53 AUTHOR: SHANNON WEISS EXP COSIGNER: URGENCY: STATUS: COMPLETED ------Original Message ------ Sent: 12/03/2023 05:00 PM ET From: COLE MAR To: Frandy BOLANOSPRIMARYCARE_LIT Subject: General:General: FIT TEST & HTN Fit test is appointment on the 8th? ------Original Message ------ Sent: 12/03/2023 05:04 PM ET From: SHANNON WEISS To: COLE MAR Subject: General:General: FIT TEST & HTN Mr Mar: FIT TEST is a home Colorectal test. Comes in a Kit and you follow the instructions and send back to the Clinic. If you did not receive one in the mail, let us know and we will send you one. Thanks again for your quick response. Kindly- Shannon Weiss RN [facility] PACT TEAM RN EXT [id number] /es/ SHANNON WEISS RN [facility] REGISTERED NURSE Signed: 12/03/2023 17:04 SHANNON WEISS [facility] Dec 03, 2023 03:57 PM PRIMARY CARE SECUR E MESSAGING: LOCAL TITLE: PRIMARY CARE SECURE MESSAGING STANDARD TITLE: PRIMARY CARE SECURE MESSAGING DATE OF NOTE: DEC 03, 2023@15:57 ENTRY DATE: DEC 03, 2023@16:57:05 AUTHOR: SHANNON WEISS EXP COSIGNER: URGENCY: STATUS: COMPLETED ------Original Message ------ Sent: 12/03/2023 04:45 PM ET From: COLE MAR To: Maribel BOLANOS_[facility]_LIT Subject: General:General: FIT TEST & HTN I do not have a BP monitor. I wear a cheap fit bit if you want that. If not I will need one. Thank you Cole ------Original Message ------ Sent: 12/03/2023 04:56 PM ET From: SHANNON WEISS To: COLE MAR Subject: General:General: FIT TEST & HTN Mr. Mar: Thank you for the immediate response. I will gladly order you a home BP monitor. Please let me know when you receive and are able to monitor for a few days. FIT TEST? Thank you again- Kind Regards- Shannon Weiss RN [facility] PACT TEAM RN EXT [id number] /es/ SHANNON WEISS RN CMSRShefali REGISTERED NURSE Signed: 12/03/2023 16:57 SHANNON WEISS [facility] Dec 03, 2023 03:31 PM PRIMARY CARE SECUR E MESSAGING: LOCAL TITLE: PRIMARY CARE SECURE MESSAGING STANDARD TITLE: PRIMARY CARE SECURE MESSAGING DATE OF NOTE: DEC 03, 2023@15:31 ENTRY DATE: DEC 03, 2023@16:31:51 AUTHOR: SHANNON WEISS EXP COSIGNER: URGENCY: STATUS: COMPLETED ------Original Message ------ Sent: 12/03/2023 04:31 PM ET From: SHANNON WEISS To: COLE MAR Subject: General:General: FIT TEST & HTN Good Afternoon Mr. Mar: A reminder re: FIT TEST. Hopefully you have received. If not please notify PACT TEAM to send out. HTN: Your last recorded BP was 143/92. Goal: 140/90. If you have a home BP monitor, please monitor your BP twice a day for the next few days and send the readings for review. If you do not have a home BP monitor, let us know and we can order one to be delivered. Please provide the above prior to your upcoming appt: December 30. PACT TEAM looks forward to hearing back from you. Kind Regards- Shannon HUIZAR [facility] PACT TEAM RN EXT [id number] /es/ SHANNON WEISS RN [facility] REGISTERED NURSE Signed: 12/03/2023 16:31 SHANNON WEISS [facility]
--- OUTSIDE RECORDS SUMMARY | 2024-04-14 14:00 | XMS_ITS | Encounter Summary ---
Author Name [facility] [place] Organization [facility] [place] Address [address] [place] [address] Care Team Providers Care Courtroom Reporter Name Role Phone LUIS MIGUELNATE Primary Care Provider Unavailabl e Selected Encounter This section includes the information on record at [place] for the Encounter. Date/Time Encounter Type Encounter Description Reason Pro vider Source Oct 12, 2023 02:50 PM Outpatient Encounter ADMIN PAT ACTIVTIES (SANDEEPNONCT) IHE Encounter Template Text not used by [place] Plan of Treatment: Future Appointments (+ 6 months) and Future Tests (+/- 45 days) The Plan of Treatment section includes future care activities for the patient from all [place] treatmentfacilities. This section includes future appointments and future orders which are active, pending or scheduled. Future Appointments This section includes appointments that were scheduled to occur 6 months from the date of the Encounter, up to a maximum of 20 appointments. The data comes from all [place] treatment facilities. Appointment Date/Time Appointment Type Appointme nt Facility Name Oct 24, 2023 01:15 PM AMBULATORY - NONE [facility] Dec 24, 2023 11:30 AM AMBULATORY - MEDICINE [place] [facility] Dec 31, 2023 09:30 AM AMBULATORY - NONE ERAN NONA [place] [facility] Dec 31, 2023 09:30 AM AM[place]UL[place]ORY - [place]ICINE [place] [facility] Jan 14, 2024 10:30 AM [place] [facility] Mar 05, 2024 12:37 PM [place]BUL[place]ORY [place] [facility] Mar 11, 2024 08:00 AM AMBULATORY - [place] [facility] Mar 11, 2024 09:30 AM AMBULATORY - [place] [facility] Apr 02, 2024 12:30 PM [place] [facility] Apr 04, 2024 10:00 AM [place] [facility] Apr 07, 2024 09:45 AM AMBULATORY - NONE [facility] Apr 08, 2024 11:15 AM [place] [facility] Apr 09, 2024 10:30 AM AMBUL[place]ORY [place] [facility] Apr 10, 2024 09:15 AM AMBULATORY - [place]GERY [place] [facility] Apr 10, 2024 09:30 AM AMBULATORY - NONE [place] [facility] Apr 10, 2024 12:00 PM AMBULATORY - [place]GERY [place] [facility] Apr 10, 2024 01:00 PM AMBULATORY - MEDICINE [place] [facility] [facility] Lab Results: +/- 30 days [...] Result - Unit Interpretation Reference Range Comment Oct 24, 2023 01:00 PM [facility] THYROID TESTING [facility]ASCADE Specimen Type: SERUM Comment: , Tests performed on [employer] SN:[id number] (405) Ordering Provider: NATE BOLANOS Report Released Date/Time: Sep 28, 2023 08:14 AM Reporting Lab: [place] [facility] [facility] [address] [facility] [address] Performing Lab: [place] [facility] [facility] [address] [facility] [address] TSH 5.59 u[IU]/mL H 0.35-5.00 FREE T4 REFLEX 0.97 Advance Directives: All historical and current Section [...] May 18, 2021 ADVANCE DIRECTIVE RICHARD DAN [facility] Encounter Notes: All associated encounter notes This section contains the clinical notes associated to the Encounter. Date/Time Encounter Note(s) Provider Source Oct 12, 2023 02:51 PM ADMINISTRATIVE NOT E: LOCAL TITLE: CCC: SCHEDULING ADMINISTRATION STANDARD TITLE: ADMINISTRATIVE NOTE DATE OF NOTE: OCT 12, 2023@14:51:06 ENTRY DATE: OCT 12, 2023@14:51:06 AUTHOR: CODI CHRISTENSEN COSIGNER: URGENCY: STATUS: COMPLETED CCC: SCHEDULING ADMINISTRATION Has ADDENDA Patient Demographics Patient Name: BISMARK HAYWARD Patient Primary Phone: [phone] Patient Primary Address: [address] [place] [address] Patient : 1975 Patient Age: 48 Caller/Recipient Relation to Patient: Self Administrative Administrative Note Reason: Returned Call Administrative Note Comments: Patient is returning PACT Teams call. Patient can be reached at [phone], patient will be heading into work at 3PM today. /garrick/ CODI CHRISTENSEN Main Entree Cook And Cashier Signed: 10/12/2023 14:51 Receipt Acknowledged By: 10/15/2023 08:29 /garrick/ CARROLL PETTY LPN 10/23/2023 08:27 /garrick/ HOLLY ROSENBERG 10/12/2023 ADDENDUM STATUS: COMPLETED attempting to contact vet- no answer- left vm to call clinic re scheduling appt /garrick/ IGNACIO ROSENBERG RN Signed: 10/12/2023 15:00 CODI CHRISTENSEN [facility]
--- OUTSIDE RECORDS SUMMARY | 2024-04-14 14:00 | XMS_ITS | Encounter Summary ---
Author Name [facility] [place] Organization [facility] [place] Address [address] [place] [address] Care Team Providers Care Motor Vehicle Lecturer Name Role Phone LUIS MIGUEL NATE Primary Care Provider Unavailabl e Selected Encounter This section includes the information on record at [place] for the Encounter. Date/Time Encounter Type Encounter Description Reason Provider Source Dec 24, 2023 11:30 AM MTMS BY PHARM SALES SUPERVISOR 15 MIN TELEPHONE PRIMARY CARE ICD-10-CM I10 Essential (primary) hypertension MARIANA GUNDERSON [place] Encounter Template Text not used by [place] Assessments - Encounter Diagnoses This section includes the primary and secondary diagnoses documented for the Encounter. Date/Time Primary/Secondary Diagnosis Diagnosis Name Provider Source Dec 24, 2023 11:30 AM PRIMARY Essential (primary) hypertension MARIANA GUNDERSON [facility] Plan of Treatment: Future Appointments (+ 6 [...] Appointment Type Appointme nt Facility Name Dec 31, 2023 09:30 AM AMBULATORY - NONE [place] [facility] Dec 31, 2023 09:30 AM [place]UL[place]ORY - [place]IC[place] [facility] Jan 14, 2024 10:30 AM [place] [facility] Mar 05, 2024 12:37 PM [place] [facility] Mar 11, 2024 08:00 AM [place] [facility] Mar 11, 2024 09:30 AM [place] [facility] Apr 02, 2024 12:30 PM [place]ORY [place] [facility] Apr 04, 2024 10:00 AM [place]UL[place]ORY - [place]IC[place] [facility] Apr 07, 2024 09:45 AM AMBULATORY - NONE [facility] Apr 08, 2024 11:15 AM [place]UL[place]ORY - [place]IC[place] [facility] Apr 09, 2024 10:30 AM AMBUL[place]ORY [place] [facility] Apr 10, 2024 09:15 AM AMB[place]ORY [place] [facility] Apr 10, 2024 09:30 AM AMBULATORY - NONE [place] [facility] Apr 10, 2024 12:00 PM AMBUL[place]ORY [place] [facility] Apr 10, 2024 01:00 PM AMBULATORY - [place]IC[place] [facility] Apr 14, 2024 07:00 AM AMBULATORY - NONE [place] [facility] Apr 15, 2024 10:45 AM [place]UL[place] - [place]IC[place] [facility] Apr 21, 2024 11:00 AM [place] - [place]IC[place] [facility] Jun 11, 2024 09:00 AM [place]UL[place]ORY - [place]IC[place] [facility] Jun 18, 2024 09:00 AM AM[place]UL[place]ORY - [place]IC[place] [facility] Active, Pending, and Scheduled Orders This [...] AM Consult Order MOVE! OUTP ATIENT Cons E Commerce Web Developer's Choice [place] [facility] Lab Results: +/- 30 days of the [...] Range Comment Dec 31, 2023 10:06 AM [facility] LAMOTRIGINE(Q) Specimen Type: SERUM Comment: This test was developed and its analytical performance characteristics have been determined by [employer] [place], [place]. It has not been cleared or approved by the U.S. Food and Drug Administration. This assay has been validated pursuant to the CLIA regulations and is used for clinical purposes. Test Performed by [employer], [employer], [address] [place] [address] Leland Gamble M.D., Ph.D., Director of Laboratories , CLIA [id number] Ordering Provider: NATE BOLANOS Report Released Date/Time: Dec 31, 2023 09:36 AM Reporting Lab: [facility] [address] [facility] [address] Performing Lab: [facility] [id number] [place] [address] LAMOTRIGINE(Q) 4.8 ug/mL 2.5-15.0 Dec 31, 2023 10:06 AM [facility] LIPOPROTEIN CHOLESTEROL FRACT. PANEL Specimen Type: PLASMA Comment: , Tests performed on [employer] SN:[id number] (405). Ordering Provider: NATE BOLANOS Report Released Date/Time: Dec 20, 2023 11:26 AM Reporting Lab: [facility] [address] [facility] [address] Performing Lab: [facility] [address] [facility] [address] CHOLESTEROL 171 mg/dL 0-200 TRIGLYCERIDE 55 mg/dL 0-150 HDL CHOLESTEROL 60 mg/dL >40 LDL CHOLESTEROL (CALC) 100 mg/dL 0-129 Dec 31, 2023 10:06 AM [facility] CBC NO DIFF Specimen Type: BLOOD No comment entered. Ordering Provider: NATE BOLANOS Report Released Date/Time: Dec 20, 2023 11:26 AM Reporting Lab: [facility] [address] [facility] [address] Performing Lab: [facility] [address] [facility] [address] WBC 6.2 10*3/uL 4.5-11.0 RBC 5.13 10*6/uL 4.23-5.66 HGB 16.3 g/dL 12.8-17 HEMATOCRIT 47.6 39.2-50.4 MCV 92.8 fL 82-99 MCH 31.8 pg 26.2-32.6 MCHC 34.2 g/dL 30.8-35.1 PLT 263 10*3/uL 140-360 MPV 9.9 fL 9.2-12.4 RDW 11.8 L 12.0-16.0 Dec 31, 2023 10:06 AM [facility] P4 GLU,BUN,CREAT,LYTES,CA Specimen Type: PLASMA Comment: , Tests performed on [employer] SN:[id number] (405). Ordering Provider: NATE BOLANOS Report Released Date/Time: Dec 20, 2023 11:26 AM Reporting Lab: [facility] [address] [facility] [address] Performing Lab: [facility] [address] [facility] [address] UREA NITROGEN 20 mg/dL 7-25 SODIUM 137 mmol/L 135-145 POTASSIUM 4.6 mmol/L 3.5-5.0 CHLORIDE 105 mmol/L 100-110 CARBON DIOXIDE 21 mmol/L 20-30 ANION GAP 11 4-16 GLUCOSE 86 mg/dL 65-100 CREATININE 1.00 mg/dL 0.50-1.50 CALCIUM 10.3 mg/dL 8.5-10.5 eGFR(CKD-EPI 2020) >90 mL/min See_Commen t Dec 31, 2023 10:06 AM [facility] LIVER PROFILE Specimen Type: PLASMA Comment: , Tests performed on [employer] Jarett SN:[id number] (405). Ordering Provider: NATE BOLANOS Report Released Date/Time: Dec 20, 2023 11:26 AM Reporting Lab: [facility] [address] [facility] [address] Performing Lab: [facility] [address] [facility] [address] PROTEIN, TOTAL 7.8 g/dL 6.0-8.5 ALBUMIN 4.3 g/dL 3.2-5.0 BILIRUBIN, TOTAL 0.4 mg/dL 0.2-1.2 ALKALINE PHOSPHATASE 144 U/L 40-150 ALT(SGPT) 37 U/L 7-52 AST(SGOT) 30 U/L 5-34 FIB-4 SCORE 0.92 <2.67 Dec 31, 2023 10:06 AM [facility] GLYCOHEMOGLOBIN (A1C ONLY) Specimen Type: BLOOD Comment: , Tests performed on [employer] SN:[id number] (405) Values obtained from A1C measurements can vary. For typical A1C assays, a reported value of 7.0 could actually be between 6.72 and 7.28 if measured by a reference method. A reported value of 9.0 could actually be between 8.73 and 9.27. Ref: http://www.ngsp. org/CAPdata.asp Ordering Provider: NATE BOLANOS Report Released Date/Time: Dec 20, 2023 11:26 AM Reporting Lab: [facility] [address] [facility] [address] Performing Lab: [facility] [address] [facility] [address] HEMOGLOBIN A1C 5.3 4.0-5.6 Dec 31, 2023 10:06 AM [facility] DILANTIN Specimen Type: SERUM Comment: LAST DOSE 8:00 AM 12/31/23 , Tests performed on [employer] SN:[id number] (405). Ordering Provider: NATE BOLANOS Report Released Date/Time: Dec 31, 2023 09:36 AM Reporting Lab: [facility] [address] [facility] [address] Performing Lab: [facility] [address] [facility] [address] DILANTIN 19.7 ug/mL 10.0-20.0 Dec 31, 2023 10:06 AM [facility] TSH Specimen Type: SERUM Comment: , Tests performed on [employer] SN:[id number] (405) TSH within normal limits. Reflex testing not required. Ordering Provider: NATE BOLANOS Report Released Date/Time: Dec 31, 2023 09:37 AM Reporting Lab: [facility] [address] [facility] [address] Performing Lab: [facility] [address] [facility] [address] TSH 3.45 u[IU]/mL 0.35-5.00 Dec 06, 2023 08:00 AM [facility] OCCULT BLOOD FIT X1 SCREEN([facility]) Specimen Type: FECES Comment: Tests performed on [employer] 80(405) Ordering Provider: NATE BOLANOS Report Released Date/Time: Nov 07, 2023 01:34 PM Reporting Lab: [facility] [address] [facility] [address] Performing Lab: [facility] [address] [facility] [address] OCCULT BLOOD(FIT)#1 OF 1([facility]) Negative Negative Social History: Smoking Status (Most current) and Tobacco Use (All prior to encounter date) This section includes the most current, and the historical, smoking and tobacco- related health factors from the [place] facility where the Encounter took place. Current Smoking Status This section includes the most current smoking, or tobacco-related health factor, from the [place] facility where the Encounter took place. Date/Time Current Smoking Status Comment Cherri vela Dec 24, 2023 11:30 AM [facility]-TOBACCO NEVER USED [facility] Tobacco Use History This section includes a history of the smoking, or tobacco-related health factors, that were collected on or before the date of the Encounter. The data comes from the [place] facility where the Encounter took place. Date/Time Smoking Status/Tobacco Use Comment F acility Feb 27, 2022 09:00 AM VA-TOBACCO NEVER USED [facility] Nov 04, 2020 08:30 AM VA-TOBACCO NEVER USED [facility] Oct 24, 2019 11:43 AM VA-TOBACCO NEVER USED [facility] Sep 11, 2018 03:54 PM VA-TOBACCO NEVER USED [facility] Jul 17, 2002 10:[address]-[facility] Mar 15, 2001 10:[address] NON-[facility] Advance Directives: All historical and current Section Date Range: From patient's date of to the date document was created. This section includes ALL of a patient's completed or amended [place] Advance and Rescinded Directives. The entries below indicate that a directive exists for the patient, but an actual copy is not included with this document. The data comes from all [place] facilities. Date Advance Directives Provider Source May 18, 2021 ADVANCE DIRECTIVE RICHARD DAN T [facility] Encounter Notes: All associated encounter notes This section contains the clinical notes associated to the Encounter. Date/Time Encounter Note(s) Provider Source Dec 24, 2023 11:30 AM MEDICATION MGT NOT E: LOCAL TITLE: CPP COMPREHENSIVE MEDICATION MANAGEMENT STANDARD TITLE: MEDICATION MGT NOTE DATE OF NOTE: DEC 24, 2023@11:30 ENTRY DATE: DEC 24, 2023@11:25:31 AUTHOR: MARIANA GUNDERSON COSIGNER: URGENCY: STATUS: COMPLETED Name: BISMARK HAYWARD : Jul Age: 48 Primary Care Provider: NATE BOLANOS [facility] Allergies/ADEs Patient has answered NKA Active problems - Computerized Problem List is the source for the followin. Low back pain 2. Varicose veins 3. Pain of right knee joint 4. Essential hypertension 5. Epilepsy 6. AF- Atrial Fibrillation ([facility] [id number]) 7. Cardiomyopathy 8. Mitral valve regurgitation 9. Obstructive sleep apnea syndrome 10. GERD - Gastro-Esophageal Reflux Disease ([facility] [id number]) 11. Depressive disorder 12. Genital warts 13. Family History of Psychiatric Condition 14. Family History of Diabetes Mellitus 15. Hypothyroidism (SNOMED CT [id number]) SUBJECTIVE: Patient is a 48 y/o MALE [place] who was encountered by pharmacy clinic today for medication management. Pt was referred to PACT CPP for HTN management. PMH also significant for, but not limited to, AF, cardiomyopathy, mitral valve regurgitation. Current Antihypertensive Regimen: -diltiazem 360mg 24hr cap 1 once daily - am -hctz 12.5mg po daily - am -lisinopril 5mg po daily - am Today [place] Reports -checking BP am around 10am -evening check around 10pm Active and Recently Outpatient Medications (including Supplies): Active Outpatient Medications Status 1) ASPIRIN 325MG TAB TAKE ONE TABLET BY MOUTH EVERY DAY ACTIVE TO PREVENT STROKE/HEART ATTACK OR FOR PAIN/INFLAMMATION/SWELLING 2) CHLORHEXIDINE GLUCONATE 0.12% MOUTHWASH RINSE 1 ACTIVE CAPFUL (15ML) BY MOUTH TWICE A DAY 3) DILTIAZEM (EQV-TIAZAC) 360MG 24HR CAP TAKE [...] BEFORE FOOD INCREASE IN DOSE 8) LISINOPRIL 5MG TAB TAKE ONE TABLET BY MOUTH EVERY DAY ACTIVE TO CONTROL BLOOD PRESSURE 9) MELATONIN 5MG CAP/TAB TAKE ONE CAP/TAB BY MOUTH EVERY ACTIVE DAY FOR SLEEP 10) PHENYTOIN NA (DILANTIN) 100MG SA CAP TAKE ONE CAPSULE ACTIVE BY MOUTH EVERY MORNING AND TAKE TWO CAPSULES EVERY EVENING TO PREVENT SEIZURES NEEDS DILANTIN BRAND 11) SILDENAFIL CITRATE 100MG TAB TAKE ONE TABLET BY MOUTH ACTIVE NEEDED MAX USE ONCE IN 24 HOUR PERIOD 12) TRAZODONE HCL 50MG TAB TAKE ONE TABLET BY MOUTH AT ACTIVE BEDTIME FOR INSOMNIA MAY TAKE ONE ADDITIONAL TABLET NEEDED 13) TRIAMCINOLONE ACETONIDE 0.1% OINT APPLY SMALL AMOUNT ACTIVE TOPICALLY TWICE DAILY NEEDED FOR DERMATITIS Inactive Outpatient Medications Status 1) CHOLECALCIF 25MCG (D3-1,000UNIT) TAB TAKE ONE TABLET BY MOUTH ONCE DAILY Active Non-VA Medications Status 1) Non-VA DOXYCYCLINE HYCLATE 100MG TAB 100MG BY MOUTH ACTIVE TWICE A DAY Allergies: Patient has answered NKA - Medication Reconciliation: [x] New patient full medication reconciliation completed, any differences listed above Blood Pressure Readings: ---- BP readings from 12/20 SM 12/08 130/97 136/99 12/09 148/94 142/91 12/10 138/96 143/97 12/11 120/90 123/102 12/12 12093 136/93 12/13 120/91 136/99 12/14 126/112 136/88 Social History: ---- Diet: Dorita: water, maybe a few sodas here and there Caffeine intake: on occasion Sodium intake: no, doesn't care for salt NSAIDs: EtOH: Smoking: never Exercise: not really exercising, gets on a routine, then falls off OBJECTIVE: BP: 143/92 (02/27/2022 08:54) Pulse: 60 (02/27/2022 08:54) Height: 70 in [177.8 cm] (02/27/2022 08:54) Weight: 248.4 lb [112.67 kg] (02/27/2022 08:54) BODY MASS INDEX - FEB 27, 2022@08:54:03 35.7 CHEM 7 TREND Collection DT Spec BUN NA K CL CO2 ANI GAP GLU 05/30/2023 11:35 PLASM 25 135 4.5 105 21 9 90 Collection DT Spec CREATI CA eGFR(CK 05/30/2023 11:35 PLASM 0.86 9.0 >90.0 eCrCl: 92.26 Lipids: Collection DT Spec CHOL TRIG LDL HDL 05/30/2023 11:35 PLASM 173 44 96 68 11/04/2020 09:03 PLASM 161 45 98 54 11/28/2019 11:57 PLASM 179 38 105 66 LFT TREND Collection DT Spec TP ALB TBIL ALP ALT AST FIB-4 05/30/2023 11:35 PLASM 7.0 3.7 0.4 116 40 38 H 1.30 A1c trend: Lab A1c (last three) Collection DT Specimen Test Name Result Units Ref Range 05/30/2023 11:35 BLOOD !! HEMOGLOBIN A1C 5.0 % 4.0 - 5.6 Other: 25OH-D 05/30/23 @ 1135 39.4 TSH: 5.59 (10/24/23 13:00) B12 05/30/23 11:35 905 H CBC TREND Collection DT Spec WBC RBC HGB HCT MCV MCH PLT 05/30/2023 11:35 BLOOD 4.8 4.56 14.9 43.6 95.6 32.7 H 221 11/04/2020 09:03 BLOOD 5.3 4.63 15.5 46.4 100.2 H 33.5 H 259 11/28/2019 11:57 BLOOD 4.7 4.34 14.6 43.4 100.0 H 33.6 H 284 09/25/2018 09:06 BLOOD 4.8 4.92 16.1 48.6 98.8 32.7 H 273 ASSESSMENT/PLAN: #Hypertension Per 2017 ACC/AHA guidelines BP goal: <130/80, DoD guidelines <140/90. Pt largely w/isolated diastolic hypertension. Currently on CCB, thiazide diuretic and ACEi - taking all 3 meds in the morning. Review of lifestyle w/out tobacco, minimal alcohol, minimal caffeine. However, pt also not typically exercising. Will plan to increase lisinopril dose and also move to pm dosing. Education on appropriate home BP checks. ==== PLAN ==== * Medication changes: -INCREASE lisinopril 10mg po qpm * Check BP readings at home and log for f/u * Call clinic if any questions/concerns regarding regimen Patient states understanding of plan as above. Follow-up with pharmacy clinic: 3 weeks Total time for encounter (preparation, counseling/education, documentation, orders for labs/meds/consults/rtcs, care coordination): 15 minutes ----- Tobacco Use Screening: The patient has never used tobacco. Alcohol Use Screen (AUDIT-C): Alcohol Screen: SCREEN FOR ALCOHOL (AUDIT-C) An alcohol screening test (AUDIT-C) was negative (score=1). 1. How often did you have a drink containing alcohol in the past year? Consider a drink to be a 12 ounce can or bottle of regular beer, 8 ounces of malt liquor, a 5 ounce glass of table wine, or a 1.5 ounce shot of liquor (like scotch, gin, or vodka). Monthly or less 2. How many drinks containing alcohol did you have on a typical day when you were drinking in the past year? One or two drinks 3. How often did you have six or more drinks on one occasion in the past year? Never PBM PharmD Pharmacotherapy Rem V12: PHARMACIST INTERVENTIONS: HYPERTENSION Medication Intervention(s) Adjust dose or frequency of current medication /es/ MARIANA GUNDERSON, JOSE DE JESUS Clinical Pharmacist Practitioner Signed: 12/24/2023 11:59 MARIANA GUNDERSON [facility]
--- OUTSIDE RECORDS SUMMARY | 2024-04-14 14:00 | XMS_ITS | Encounter Summary ---
Author Name [facility] [place] Organization [place] Address [address] [place] [address] Care Team Providers Care Shirt Sewer Name Role Phone LUIS MIGUELNATE Primary Care Provider Unavailabl e Selected Encounter This section includes the information on record at [place] for the Encounter. Date/Time Encounter Type Encounter Description Reason Pro vider Source Nov 08, 2023 01:01 PM Outpatient Encounter ADMIN PAT ACTIVTIES (SANDEEPNONCT) IHE Encounter Template Text not used by [place] Plan of Treatment: Future Appointments (+ 6 months) and Future Tests (+/- 45 days) The Plan of Treatment section includes future care activities for the patient from all [place] treatmentfacilities. This section includes future appointments and future orders which are active, pending or scheduled. Future Appointments This section includes appointments that were scheduled to occur 6 months from the date of the Encounter, up to a maximum of 20 appointments. The data comes from all [place] treatment facilities. Appointment Date/Time Appointment Type Appointme nt Facility Name Dec 24, 2023 11:30 AM AMBULATORY - MEDICINE [place] [facility] Dec 31, 2023 09:30 AM AMBULATORY - NONE ERAN ZABALA [facility] Dec 31, 2023 09:30 AM [facility] Jan 14, 2024 10:30 AM [place] [facility] Mar 05, 2024 12:37 PM AMBULATORY - [place]IC[place] [facility] Mar 11, 2024 08:00 AM AMBULATORY - [place] [facility] Mar 11, 2024 09:30 AM AMBULATORY - [place] [facility] Apr 02, 2024 12:30 PM [place]ULATORY - [place]IC[place] [facility] Apr 04, 2024 10:00 AM [place]ULATORY [place]IC[place] [facility] Apr 07, 2024 09:45 AM AMBULATORY - NONE [facility] Apr 08, 2024 11:15 AM [place]ORY [place]IC[place] [facility] Apr 09, 2024 10:30 AM AMBULATORY - [place] [facility] Apr 10, 2024 09:15 AM AMBULATORY - [place] [facility] Apr 10, 2024 09:30 AM AMBULATORY - NONE [place] [facility] Apr 10, 2024 12:00 PM AMBUL[place]ORY - [place] [facility] Apr 10, 2024 01:00 PM AMBULATORY - [place]IC[place] [facility] Apr 14, 2024 07:00 AM AMBULATORY - NONE [place] [facility] Apr 15, 2024 10:45 AM AMBULATORY - [place]IC[place] [facility] Apr 21, 2024 11:00 AM AMBULATORY - [place]ICINE [place] [facility] Lab Results: +/- 30 days [...] - Unit Interpretation Reference Range Comment Dec 06, 2023 08:00 AM [place] [facility] OCCULT BLOOD FIT X1 SCREEN(WRJ) Specimen Type: FECES Comment: Tests performed on [employer] Auto Micro 80(405) Ordering Provider: NATE BOLANOS Report Released Date/Time: Nov 07, 2023 01:34 PM Reporting Lab: [facility] [address] [facility] [address] Performing Lab: [facility] [address] [facility] [facility] [address] OCCULT BLOOD(FIT)# 1 OF 1(WRJ) Negative Negative Oct 24, 2023 01:00 PM [facility] THYROID TESTING [place] Specimen Type: SERUM Comment: , Tests performed on [employer] Craven [id number] (654) Ordering Provider: NATE BOLANOS Report Released Date/Time: Sep 28, 2023 08:14 AM Reporting Lab: [facility] [address] [facility] [address] Performing Lab: [facility] [address] [facility] [address] TSH 5.59 u[IU]/mL H 0.35-5.00 FREE T4 REFLEX 0.97 Advance Directives: All historical and current Section Date Range: From patient's date of to the date document was created. This section includes ALL of a patient's completed or amended [place] Advance and Rescinded Directives. The entries below indicate that a directive exists for the patient, but an actual copy is not included with this document. The data comes from all [place] facilities. Date Advance Directives Provider Source May 18, 2021 ADVANCE DIRECTIVE RICHARD DAN [facility] Encounter Notes: All associated encounter notes This section contains the clinical notes associated to the Encounter. Date/Time Encounter Note(s) Provider Source Nov 08, 2023 01:01 PM ADMINISTRATIVE NOT E: LOCAL TITLE: CCC: SCHEDULING ADMINISTRATION STANDARD TITLE: ADMINISTRATIVE NOTE DATE OF NOTE: NOV 08, 2023@13:01:45 ENTRY DATE: NOV 08, 2023@13:01:45 AUTHOR: RANDY TAYLOR EXP COSIGNER: URGENCY: STATUS: COMPLETED CCC: SCHEDULING ADMINISTRATION Has ADDENDA Patient Demographics Patient Name: BISMARK HAYWARD Patient Primary Phone: [phone] Patient Primary Address: [address] [place] [id number] Patient : 1975 Patient Age: 48 Caller/Recipient Relation to Patient: Self Administrative Administrative Note Reason: Other Administrative Note Comments: Pt called in returning a call again, he can be reached at the number on file for the remainder of the day. /garrick/ RANDY WEISS 1 [facility] AMSA Signed: 11/08/2023 13:01 Receipt Acknowledged By: 11/08/2023 15:03 /garrick/ CARROLL PETTY LPN 11/09/2023 14:44 /es/ IGNACIO ROSENBERG RN 11/08/2023 13:35 /garrick/ LC ASTUDILLO 11/08/2023 ADDENDUM STATUS: COMPLETED Patient is scheduled 12/30 /garrick/ CARROLL PETTY LPN Signed: 11/08/2023 15:03 RANDY TAYLOR [facility]
--- OUTSIDE RECORDS SUMMARY | 2024-04-14 14:00 | XMS_ITS ---
Author Name [facility] [place] Organization [place] Address [address] [place] [address] Care Team Providers Care Continuous Pickling Line Pickler Helper Name Role Phone NATE BOLANOS Primary Care Provider Unavailabl e Selected Encounter This section includes the information on record at [place] for the Encounter. Date/Time Encounter Type Encounter Description Reason Pro vider Source Aug 09, 2023 10:00 AM Outpatient Encounter ADMIN PAT ACTIVTIES (SANDEEPNONCT) IHE Encounter Template Text not used by [place] Plan of Treatment: Future Appointments (+ 6 months) and Future Tests (+/- 45 days) The Plan of Treatment section includes future care activities for the patient from all [place] treatmentfacilities. This section includes future appointments and future orders which are active, pending or scheduled. Future Appointments This section includes appointments that were scheduled to occur 6 months from the date of the Encounter, up to a maximum of 20 appointments. The data comes from all [place] treatment facilities. Appointment Date/Time Appointment Type Appointme nt Facility Name Oct 24, 2023 01:15 PM AMBULATORY - NONE [facility] Dec 24, 2023 11:30 AM AMBULATORY - MEDICINE [place]A [place] [facility] Dec 31, 2023 09:30 AM AMBULATORY - NONE ERAN NONA ZABALA [facility] Dec 31, 2023 09:30 AM [facility] Jan 14, 2024 10:30 AM AMBULATORY - MEDICINE [place] BOWEN [facility] Active, Pending, and Scheduled Orders This section includes a listing of several types of active, pending, and scheduled orders, including clinic medications orders, diagnostic test orders, procedure orders and consult orders; where the start date of the order is 45 days before the date of the Encounter or 45 days after the date of theEncounter. The data comes from all [place] treatment facilities. Test Date/Time Test Type Test Details Facility Name Jul 09, 2023 12:00 AM Laboratory - Chemi stry Order THYROID TESTING CASCADE BLOOD(GOLD) SERUM SP [facility] Advance Directives: All historical and current Section Date Range: From patient's date of to the date document was created. This section includes ALL of a patient's completed or amended [place] Advance and Rescinded Directives. The entries below indicate that a directive exists for the patient, but an actual copy is not included with this document. The data comes from all [place] facilities. Date Advance Directives Provider Source May 18, 2021 ADVANCE DIRECTIVE RICHARD DAN [facility] Encounter Notes: All associated encounter notes This section contains the clinical notes associated to the Encounter. Date/Time Encounter Note(s) Provider Source Aug 09, 2023 10:00 AM ADMINISTRATIVE NOT E: LOCAL TITLE: ELIGIBILITY NOTE STANDARD TITLE: ADMINISTRATIVE NOTE DATE OF NOTE: AUG 09, 2023@10:00 ENTRY DATE: AUG 09, 2023@10:00:36 AUTHOR: LUCAS ALARCON EXP COSIGNER: URGENCY: STATUS: COMPLETED ELIGIBILITY NOTE Has ADDENDA MEANS Test Update Current Priority Group:8A What is Available to : All SERVICES Reason for Assessment: ANNUAL MEANS TEST DUE [place] Copay status:REQUIRED RX Copay status:NON-EXEMPT Bene Travel Eligible: NOT ELIGIBLE PTS FORM WAS INCOMPLETE,MISSING INCOME,MAILED NEW MEANS TEST ON 08/09/2023 /garrick/ LUCAS ALARCON Signed: 08/09/2023 10:02 08/30/2023 ADDENDUM STATUS: COMPLETED MEANS Test Update Current Priority Group:5 What is Available to : All SERVICES Reason for Assessment: ANNUAL MEANS TEST DUE [place] Copay status:exempt RX Copay status:non-exempt Bene Travel Eligible: not eligible /es/ LUCAS ALARCON Signed: 08/30/2023 07:[address] [facility]
--- OUTSIDE RECORDS SUMMARY | 2024-04-14 14:00 | XMS_ITS | Encounter Summary ---
Author Name [place] Organization [place] Address [address] [place] [address] Care Team Providers Care Sand Mixer Name Role Phone LUIS MIGUELNATE Primary Care Provider Unavailabl e Selected Encounter This section includes the information on record at [place] for the Encounter. Date/Time Encounter Type Encounter Description Reason Pro vider Source Nov 08, 2023 12:32 PM Outpatient Encounter ADMIN PAT ACTIVTIES (SANDEEPNONCT) [...] AM AMBULATORY - [place]ICINE [place] [facility] Dec 31, 2023 09:30 AM AMBULATORY - NONE ERAN ZABALA [facility] Dec 31, 2023 09:30 AM AMBULATORY - MEDICINE [facility] Jan 14, 2024 10:30 AM [place] [facility] Mar 05, 2024 12:37 PM AMBULATORY - [place]ICINE [place] [facility] Mar 11, 2024 08:00 AM AMBULATORY - [place]GERY [place] [facility] Mar 11, 2024 09:30 AM AMBULATORY - [place]GERY [place] [facility] Apr 02, 2024 12:30 PM [place]ORY - [place]ICINE [place] [facility] Apr 04, 2024 10:00 AM [place]ULATORY - [place]ICINE [place] [facility] Apr 07, 2024 09:45 AM AMBULATORY - NONE [facility] Apr 08, 2024 11:15 AM [place]ULATORY - [place]ICINE [place] [facility] Apr 09, 2024 10:30 AM AMBULATORY - [place]GERY [place] [facility] Apr 10, 2024 09:15 AM AMBULATORY - [place]GERY [place] [facility] Apr 10, 2024 09:30 AM AMBULATORY - NONE [place] [facility] Apr 10, 2024 12:00 PM [place]BUL[place]ORY - [place] [facility] Apr 10, 2024 01:00 PM [place]ORY [place]ICINE [place] [facility] Apr 14, 2024 07:00 AM AMBULATORY - NONE [place] [facility] Apr 15, 2024 10:45 AM AMBULATORY - [place]ICINE [place] [facility] Apr 21, 2024 11:00 AM AMBULATORY - [place]ICINE [place] [facility] Lab Results: +/- 30 days of [...] 06, 2023 08:00 AM [place] [facility] OCCULT BLOOD FIT X1 SCREEN(WRJ) Specimen Type: FECES Comment: Tests performed on [employer] Auto Micro 80(405) Ordering Provider: NATE BOLANOS Report Released Date/Time: Nov 07, 2023 01:34 PM Reporting Lab: [facility] [address] [facility] [address] Performing Lab: [facility] [address] [facility] [address] OCCULT BLOOD(FIT)# 1 OF 1(WRJ) Negative Negative Oct 24, 2023 01:00 PM [facility] THYROID TESTING CASCADE Specimen Type: SERUM Comment: , Tests performed on [employer] Craven [id number] ([id number]) Ordering Provider: NATE BOLANOS Report Released Date/Time: Sep 28, 2023 08:14 AM Reporting Lab: [facility] [address] [facility] [address] Performing Lab: [facility] [address] [facility] [address] TSH 5.59 u[IU]/mL H 0.35-5.00 FREE T4 [...] May 18, [address] [facility] Encounter Notes: All associated encounter notes This section contains the clinical notes associated to the Encounter. Date/Time Encounter Note(s) Provider Source Nov 08, 2023 12:32 PM ADMINISTRATIVE NOT E: LOCAL TITLE: CCC: SCHEDULING ADMINISTRATION STANDARD TITLE: ADMINISTRATIVE NOTE DATE OF NOTE: NOV 08, 2023@12:32:09 ENTRY DATE: NOV 08, 2023@12:32:09 AUTHOR: HUA AVALOS COSIGNER: URGENCY: STATUS: COMPLETED Patient Demographics Patient Name: BISMARK HAYWARD Patient Primary Phone: [phone] Patient Primary Address: [address] [place] [phone] Patient : 1975 Patient Age: 48 Caller/Recipient Relation to Patient: Self Administrative Administrative Note Reason: Other Administrative Note Comments: Patient called requesting to schedule annual with PCP. T/W unable to schedule due. Call back. /garrick/ HUA BARAJAS [facility] AMSA Signed: 11/08/2023 12:32 Receipt Acknowledged By: 11/08/2023 15:02 /garrick/ CARROLL PETTY LPN 11/08/2023 12:37 /es/ LC AVALOS,[facility]UA [facility]
--- OUTSIDE RECORDS SUMMARY | 2024-04-14 14:00 | XMS_ITS | Encounter Summary ---
Author Name Department [place] Organization [place] Address [address] [place] [address] Care Team Providers Care Cause Analyst Name Role Phone LUIS MIGUEL NATE Primary Care Provider Unavailabl e Selected Encounter This section includes the information on record at [place] for the Encounter. Date/Time Encounter Type Encounter Description Reason Provider Source Nov 07, 2023 01:44 PM Outpatient Encounter PRIMARY CARE/MEDICINE SHANNON WEISS Encounter Template Text not used by [place] Plan of Treatment: Future Appointments (+ 6 months) and Future Tests (+/- 45 days) The Plan of Treatment section includes future care activities for the patient from all [place] treatmentfacilities. This section includes future appointments and [...] 11:30 AM AMBULATORY - MEDICINE [place] BOWEN [facility] Dec 31, 2023 09:30 AM AMBULATORY - NONE [place] [facility] Dec 31, 2023 09:30 AM [facility]IC[facility] [place] [facility] Jan 14, 2024 10:30 AM AMBULATORY - MEDICINE [facility] [facility] Mar 05, 2024 12:37 PM [place]IC[place] [facility] Mar 11, 2024 08:00 AM AMBULATORY - [place] [facility] Mar 11, 2024 09:30 AM [place]UL[place]ORY - [place] [facility] Apr 02, 2024 12:30 PM [place]ULATORY - [place]ICINE [place] [facility] Apr 04, 2024 10:00 AM AMBULATORY - [place]ICINE [place] [facility] Apr 07, 2024 09:45 AM AMBULATORY - NONE [facility] Apr 08, 2024 11:15 AM [place]UL[place]ORY - [place]ICINE [place] [facility] Apr 09, 2024 10:30 AM AMBULATORY - [place]GERY [place] [facility] Apr 10, 2024 09:15 AM AMBULATORY - [place]GERY [place] [facility] Apr 10, 2024 09:30 AM AMBULATORY - NONE [place] [facility] Apr 10, 2024 12:00 PM AMBULATORY - [place]GERY [place] [facility] Apr 10, 2024 01:00 PM AMBULATORY - [place]ICINE [place] [facility] Apr 14, 2024 07:00 AM AMBULATORY - NONE [place] [facility] Apr 15, 2024 10:45 AM AMBULATORY - [place]ICINE [place] [facility] Apr 21, 2024 11:00 AM AMBULATORY - MEDICINE [place] [facility] Lab Results: +/- 30 days of [...] Range Comment Dec 06, 2023 08:00 AM [place] [place] T [facility] OCCULT BLOOD FIT X1 SCREEN([facility]) Specimen Type: FECES Comment: Tests performed on [employer] Micro 80(405) Ordering Provider: NATE BOLANOS Report Released Date/Time: Nov 07, 2023 01:34 PM Reporting Lab: [facility] [facility] [address] [facility] [address] Performing Lab: [facility] [address] [facility] [address] OCCULT BLOOD(FIT)# 1 OF 1(WRJ) Negative Negative Oct 24, 2023 01:00 PM [place] THYROID TESTING CASCADE Specimen Type: SERUM Comment: , Tests performed on [employer] Craven SN:[id number] ([id number]) Ordering Provider: NATE BOLANOS Report Released Date/Time: Sep 28, 2023 08:14 AM Reporting Lab: [facility] [address] [facility] [address] Performing Lab: [facility] [address] [facility] [facility] [address] TSH 5.59 u[IU]/mL H 0.35-5.00 FREE T4 [...] 18, 2021 ADVANCE DIRECTIVE RICHARD DAN [facility] Encounter Notes: All associated encounter notes This section contains the clinical notes associated to the Encounter. Date/Time Encounter Note(s) Provider Source Nov 07, 2023 01:44 PM PRIMARY CARE [employer] MESSAGING: [facility] TITLE: PRIMARY CARE SECURE MESSAGING STANDARD TITLE: PRIMARY CARE SECURE MESSAGING DATE OF NOTE: NOV 07, 2023@13:44 ENTRY DATE: NOV 07, 2023@13:44:01 AUTHOR: SHANNON WEISS EXP COSIGNER: URGENCY: STATUS: COMPLETED ------Original Message ------ Sent: 11/07/2023 01:43 PM ET From: SHANNON WEISS To: BISMARK MAR Subject: General:PREVENTATIVE HEALTH CARE & ANNUAL EXAM Good Afternoon Mr. Mar: Your PACT TEAM has reviewed your medical records and noticed that you are due for your Annual exam. It has been >1yr. Please call [phone] to schedule an appointment. Your last recorded BP was 143/92. Goal: 140/90. If you have a home BP monitor, please monitor your BP twice a day for the next few days and send the readings for review. If you do not have a home BP monitor, let us know and we can order one to be delivered. Colorectal Cancer Screening: A home FIT TEST KIT has been ordered and you should be receiving in the next few days. Please follow the instructions and send back as directed. Thank you. We look forward to hearing back from you shortly. The [place] strives to make your healthcare a priority. Kind Regards- Shannon Weiss RN [facility] PACT TEAM RN EXT [phone] /es/ SHANNON WEISS RN CMSRN REGISTERED NURSE Signed: 11/07/2023 13:44 SHANNON WEISS [facility]
--- OUTSIDE RECORDS SUMMARY | 2024-04-14 14:00 | XMS_ITS | Encounter Summary ---
Author Name Department [place] Organization [place] Address [address], [place] [address] Care Team Providers Care Test Preparation Tutor Name Role Phone NATE BOLANOS Primary Care Provider Ochoaabl e Selected Encounter This section includes the information on record at [place] for the Encounter. Date/Time Encounter Type Encounter Description Reason Provider Source Jul 04, 2023 02:01 PM Outpatient Encounter PRIMARY CARE/MEDICINE RANCHO NIEVES JR [place] Encounter Template Text not used by [place] Plan of Treatment: Future Appointments (+ 6 [...] 20 appointments. The data comes from all [place] treatment facilities. Appointment Date/Time Appointment Type Appointme nt Facility Name Oct 24, 2023 01:15 PM AMBULATORY - NONE [facility] Dec 24, 2023 11:30 AM AMBULATORY - MEDICINE [place] [facility] Dec 31, 2023 09:30 AM AMBULATORY - NONE ERAN ZABALA [facility] Dec 31, 2023 09:30 AM [facility] Active, Pending, and Scheduled Orders This section includes a listing of several types of active, pending, and scheduled orders, including clinic medications orders, diagnostic test orders, procedure orders and consult orders; where the start date of the order is 45 days before the date of the Encounter or 45 days after the date of theEncounter. The data comes from all [place] treatment facilities. Test Date/Time Test Type Test Details Facility Name Jul 09, 2023 12:00 AM Laboratory - Chemi stry Order THYROID TESTING [place] BLOOD(GOLD) SERUM SP [facility] Advance Directives: All historical and current Section Date Range: From patient's date of to the date document was created. This section includes ALL of a patient's completed or amended [place] Advance and Rescinded Directives. The entries below indicate that a directive exists for the patient, but an actual copy is not included with this document. The data comes from all [place] facilities. Date Advance Directives Provider Source May 18, 2021 ADVANCE DIRECTIVE RICHARD DAN [facility] Encounter Notes: All associated encounter notes This section contains the clinical notes associated to the Encounter. Date/Time Encounter Note(s) Provider Source Jul 04, 2023 02:01 PM PRIMARY CARE [employer] MESSAGING: LOCAL TITLE: PRIMARY CARE SECURE MESSAGING STANDARD TITLE: PRIMARY CARE SECURE MESSAGING DATE OF NOTE: JUL 04, 2023@14:01 ENTRY DATE: JUL 04, 2023@15:01:01 AUTHOR: RANCHO NIEVES COSIGNER: URGENCY: STATUS: COMPLETED ------Original Message ------- Sent: 07/02/2023 11:57 AM ET From: BISMARK HAYWARD To: Armand [facility]EVES[facility][email or web address] Subject: Appointment:Need appointment for fingernail and rash on my ke Need a follow up for and infection on the end of my finger. Saw urgent care and it got little better but going other way now. I also have an rash on my butt. ------Original Message ------- Sent: 07/04/2023 03:00 PM ET From: RANCHO NIEVES To: BISMARK HAYWARD Subject: Appointment:Need appointment for fingernail and rash on my ke Unfortunately dont have the ability to see patients for acute problems due to lack of providers. Would direct you back to urgent care for evaluation. Alphonso. Rancho /garrick/ RANCHO NIEVES JR, PA-C Signed: 07/04/2023 15:01 RANCHO INEVES JR [facility]
--- OUTSIDE RECORDS SUMMARY | 2024-04-14 14:00 | XMS_ITS | Encounter Summary ---
Author Name [facility] [place] Organization [place] Address [address], [place] [address] Care Team Providers Care Claim Rep Name Role Phone NATE BOLANOS Primary Care Provider Unavailabl e Selected Encounter This section includes the information on record at [place] for the Encounter. Date/Time Encounter Type Encounter Description Reason Pro vider Source Sep 28, 2023 08:03 AM Outpatient Encounter PRIMARY CARE/MEDICINE IHE Encounter Template Text not used by [place] Plan of Treatment: Future Appointments (+ 6 months) and Future Tests (+/- 45 days) The Plan of Treatment section includes future care activities for the patient from all [place] treatmentfacilities. This section includes future appointments and future orders which are active, pending or scheduled. Future Appointments This section includes appointments that were scheduled to occur 6 months from the date of the Encounter, up to a maximum of 20 appointments. The data comes from all [place] treatment facilities. Appointment Date/Time Appointment Type Appointme nt Facility Name Oct 24, 2023 01:15 PM AMBULATORY - NONE [facility] Dec 24, 2023 11:30 AM AMBULATORY - MEDICINE AZALEA BOWEN T [facility] Dec 31, 2023 09:30 AM AMBULATORY - NONE ERAN ZABALA T [facility] Dec 31, 2023 09:30 AM AMBULATORY - [facility]ICINE [facility] Jan 14, 2024 10:30 AM AMBULATORY - MEDICINE [facility] Cruz [facility] Mar 05, 2024 12:37 PM AMBULATORY - MEDICINE [facility] Cruz [facility] Mar 11, 2024 08:00 AM AMBULATORY - SURGERY [facility] Mar 11, 2024 09:30 AM AMBULATORY - SURGERY [facility] Lab Results: +/- 30 days of [...] Range Comment Oct 24, 2023 01:00 PM [facility] THYROID TESTING CASCADE Specimen Type: SERUM Comment: , Tests performed on Accelerated IO Craven SN:[id number] (405) Ordering Provider: NATE BOLANOS Report Released Date/Time: Sep 28, 2023 08:14 AM Reporting Lab: [facility] [address] [facility] [facility] [address] Performing Lab: [facility] [address] [facility] [facility] [address] TSH 5.59 u[IU]/mL H 0.35-5.00 FREE T4 REFLEX 0.97 Advance Directives: All historical and current Section Date Range: From patient's date of to the date document was created. This section includes ALL of a patient's completed or amended [place] Advance and Rescinded Directives. The entries below indicate that a directive exists for the patient, but an actual copy is not included with this document. The data comes from all [place] facilities. Date Advance Directives Provider Source May 18, 2021 ADVANCE DIRECTIVE RICHARD DAN [facility] Encounter Notes: All associated encounter notes This section contains the clinical notes associated to the Encounter. Date/Time Encounter Note(s) Provider Source Oct 09, 2023 08:12 AM PRIMARY CARE SECUR E MESSAGING: LOCAL TITLE: PRIMARY CARE SECURE MESSAGING STANDARD TITLE: PRIMARY CARE SECURE MESSAGING DATE OF NOTE: OCT 09, 2023@08:12 ENTRY DATE: OCT 09, 2023@08:12:07 AUTHOR: SAE DOWD COSIGNER: URGENCY: STATUS: COMPLETED PRIMARY CARE SECURE MESSAGING Has ADDENDA ------Original Message ------ Sent: 10/08/2023 01:36 PM ET From: COLE HAYWARD To: LUIS MIGUELMaribel_PRIMARYCARE_LIT Subject: General:labs thank you. I think you called but i lost the message. I would also like to see if i can get in to see someone about a rash that keeps showing up on mu butt, thank you again Cole /garrick/ SAE DOWD AMSGhassan Signed: 10/09/2023 08:12 Receipt Acknowledged By: 10/15/2023 07:35 /garrick/ CARROLL PETTY LPN 10/12/2023 16:13 /garrick/ IGNACIO ROSENBERG RN 10/12/2023 ADDENDUM STATUS: COMPLETED attempting to contact vet- no answer- left vm to please contact clinic at earliest convenience. /garrick/ IGNACIO ROSENBERG RN Signed: 10/12/2023 12:02 SAE DOWD [facility] Sep 28, 2023 08:14 AM ADDENDUM: LOCAL TITLE: Addendum STANDARD TITLE: ADDENDUM DATE OF NOTE: SEP 28, 2023@08:14:24 ENTRY DATE: SEP 28, 2023@08:14:25 AUTHOR: NATE BOLANOS COSIGNER: URGENCY: STATUS: COMPLETED chart reviewed. last tsh 06/16 7.52 on levothyroxine 250 mcg qam. thyroid labs ordered - please schedule lab appointment for ana /garrick/ NATE BOLANOS M.D Signed: 09/28/2023 08:15 Receipt Acknowledged By: 09/28/2023 08:37 /garrick/ LC ASTUDILLO === --- Original Document --- 09/28/23 PRIMARY CARE SECURE MESSAGING: ------Original Message ------ Sent: 09/25/2023 12:56 PM ET From: COLE HAYWARD To: Frandy [facility] Subject: General:labs wondering if i should come to to check my thiroid levels /garrick/ ANNA RUELAS [facility] Signed: 09/28/2023 08:03 Receipt Acknowledged By: * AWAITING SIGNATURE * IGNACIO ROSENBERG 09/28/2023 08:14 /garrick/ Sanchez BUI MARYANN [facility] Sep 28, 2023 08:03 AM PRIMARY CARE Nuk[employer] E MESSAGING: LOCAL TITLE: PRIMARY CARE SECURE MESSAGING STANDARD TITLE: PRIMARY CARE SECURE MESSAGING DATE OF NOTE: SEP 28, 2023@08:03 ENTRY DATE: SEP 28, 2023@08:03:08 AUTHOR: ANNA RUELAS EXP COSIGNER: URGENCY: STATUS: COMPLETED PRIMARY CARE SECURE MESSAGING Has ADDENDA ------Original Message ------ Sent: 09/25/2023 12:56 PM ET From: COLE HAYWARD To: Frandy [facility]LIT Subject: General:labs wondering if i should come to to check my thiroid levels /garrick/ ANNA RUELAS [facility] Np Signed: 09/28/2023 08:03 Receipt Acknowledged By: 09/28/2023 12:08 /garrick/ HOLLY MCPHERSON for IGNACIO Ghassan ROSENBERG 09/28/2023 08:14 /garrick/ NATE BOLANOS M.D 09/28/2023 ADDENDUM STATUS: COMPLETED chart reviewed. last tsh 06/16 7.52 on levothyroxine 250 mcg qam. thyroid labs ordered - please schedule lab appointment for him /garrick/ NATE BOLANOS M.D Signed: 09/28/2023 08:15 Receipt Acknowledged By: 09/28/2023 08:37 /garrick/ [facility]
--- OUTSIDE RECORDS SUMMARY | 2024-04-14 14:00 | XMS_ITS | Encounter Summary ---
Author Name Department of [place] Organization [place] Address [address], [place] [address] Care Team Providers Care Woodwinds Teacher Name Role Phone NATE BOLANOS Primary Care Provider Unavailabl e Selected Encounter This section includes the information on record at [place] for the Encounter. Date/Time Encounter Type Encounter Description Reason Provider Source Dec 31, 2023 11:01 AM OFF/OP EST JANUARY X REQ PHY/QHP PRIMARY CARE/MEDICINE ICD-10-CM Z23 Encounter for immunization RUTHY AUGUST [place] Encounter Template Text not used by [place] Assessments - Encounter Diagnoses This section includes the primary and secondary diagnoses documented for the Encounter. Date/Time Primary/Secondary Diagnosis Diagnosis Name Provider Source Dec 31, 2023 11:03 AM PRIMARY Encounter for immunization SAÚL AUGUST [facility] Plan of Treatment: Future Appointments (+ [...] 20 appointments. The data comes from all [place] treatment facilities. Appointment Date/Time Appointment Type Appointme nt Facility Name Jan 14, 2024 10:30 AM [place]ORY [place] [facility] Mar 05, 2024 12:37 PM [place]BUL[place]ORY [place]IC[place] [facility] Mar 11, 2024 08:00 AM AMBULATORY - SURGERY [place] [facility] Mar 11, 2024 09:30 AM AMBULATORY - [place]GERY [place] [facility] Apr 02, 2024 12:30 PM [place] [facility] Apr 04, 2024 10:00 AM [place] [facility] Apr 07, 2024 09:45 AM AMBULATORY - NONE [facility] Apr 08, 2024 11:15 AM [place] [facility] Apr 09, 2024 10:30 AM AMBULATORY - [place]GERY [place] [facility] Apr 10, 2024 09:15 AM AMBULATORY - [place]GERY [place] [facility] Apr 10, 2024 09:30 AM [place]ORY - NONE [place] [facility] Apr 10, 2024 12:00 PM AMBULATORY - SURGERY [place] [facility] Apr 10, 2024 01:00 PM [place] [facility] Apr 14, 2024 07:00 AM AMBULATORY - NONE [place] [facility] Apr 15, 2024 10:45 AM [place] [facility] Apr 21, 2024 11:00 AM [place]ORY [place] [facility] Jun 11, 2024 09:00 AM [place]ORY [place]IC[place] [facility] Jun 18, 2024 09:00 AM [place]ORY [place]IC[place] [facility] Jun 25, 2024 09:00 AM AM[place]ULATORY - [place]IC[place] [facility] Active, Pending, and Scheduled Orders This section includes a listing of several types of active, pending, and scheduled orders, including clinic medications orders, diagnostic test orders, procedure orders and consult orders; where the start date of the order is 45 days before the date of the Encounter or 45 days after the date of theEncounter. The data comes from all [place] treatment facilities. Test Date/Time Test Type Test Details Facility Name Dec 31, 2023 10:27 AM Consult Order MOVE! OUTP ATIENT Cons Liner Assembler's Choice [place] [facility] Lab Results: +/- 30 days of the encounter This section includes the Chemistry and Hematology Lab Results on record with [place] for the patient. Radiology Reports and Pathology [...] analytical performance characteristics have been determined by [facility] [place], [place]. It has not been cleared or approved by the U.S. Food and Drug Administration. This assay has been validated pursuant to the CLIA regulations and is used for clinical purposes. Test Performed by [employer], [facility], [address] [place] [address] Leland Gamble M.D., Ph.D., Director of [employer] , CLIA [id number] Ordering Provider: NATE BOLANOS Report Released Date/Time: Dec 31, 2023 09:36 AM Reporting Lab: [facility] [address] [facility] [address] Performing Lab: [facility] [id number] [place] [address] LAMOTRIGINE(Q) 4.8 ug/mL 2.5-15.0 Dec 31, 2023 10:06 AM [facility] LIVER PROFILE Specimen Type: PLASMA Comment: , Tests performed on [employer]ync SN:[id number]). Ordering Provider: NATE BOLANOS Report Released Date/Time: Dec 20, 2023 11:26 AM Reporting Lab: [facility] [address] [facility] [address] Performing Lab: [facility] [address] [facility] [address] PROTEIN, TOTAL 7.8 g/dL 6.0-8.5 ALBUMIN 4.3 g/dL 3.2-5.0 BILIRUBIN, TOTAL 0.4 mg/dL 0.2-1.2 ALKALINE PHOSPHATASE 144 U/L 40-150 ALT(SGPT) 37 U/L 7-52 AST(SGOT) 30 U/L 5-34 FIB-4 SCORE 0.92 <2.67 Dec 31, 2023 10:06 AM [facility] CBC NO DIFF Specimen Type: BLOOD No comment entered. Ordering Provider: NATE BOLANOS Report Released Date/Time: Dec 20, 2023 11:26 AM Reporting Lab: [facility] [address] [facility] [address] Performing Lab: [facility] [address] [facility] [address] WBC 6.2 10*3/uL 4.5-11.0 RBC 5.13 10*6/uL 4.23-5.66 HGB 16.3 g/dL 12.8-17 HEMATOCRIT 47.6 39.2-50.4 MCV 92.8 fL 82-99 MCH 31.8 pg 26.2-32.6 MCHC 34.2 g/dL 30.8-35.1 PLT 263 10*3/uL 140-360 MPV 9.9 fL 9.2-12.4 RDW 11.8 L 12.0-16.0 Dec 31, 2023 10:06 AM [facility] P4 GLU,BUN,CREAT,LYTES,CA Specimen Type: PLASMA Comment: , Tests performed on [employer]ync [id number]). Ordering Provider: NATE BOLANOS Report Released Date/Time: Dec 20, 2023 11:26 AM Reporting Lab: [facility] [address] [facility] [address] Performing Lab: [facility] [address] [facility] [address] UREA NITROGEN 20 mg/dL 7-25 SODIUM 137 mmol/L 135-145 POTASSIUM 4.6 mmol/L 3.5-5.0 CHLORIDE 105 mmol/L 100-110 CARBON DIOXIDE 21 mmol/L 20-30 ANION GAP 11 4-16 GLUCOSE 86 mg/dL 65-100 CREATININE 1.00 mg/dL 0.50-1.50 CALCIUM 10.3 mg/dL 8.5-10.5 eGFR(CKD-EPI 2020) >90 mL/min See_Commen t Dec 31, 2023 10:06 AM [facility] LIPOPROTEIN CHOLESTEROL FRACT. PANEL Specimen Type: PLASMA Comment: , Tests performed on [employer]ync SN:[id number] (405). Ordering Provider: NATE BOLANOS Report Released Date/Time: Dec 20, 2023 11:26 AM Reporting Lab: [facility] [address] [id number] Performing Lab: [facility] [address] [phone] CHOLESTEROL 171 mg/dL 0-200 TRIGLYCERIDE 55 mg/dL 0-150 HDL CHOLESTEROL 60 mg/dL >40 LDL CHOLESTEROL (CALC) 100 mg/dL 0-129 Dec 31, 2023 10:06 AM [facility] DILANTIN Specimen Type: SERUM Comment: LAST DOSE 8:00 AM 12/31/23 , Tests performed on [employer] SN:[id number] (405). Ordering Provider: NATE BOLANOS Report Released Date/Time: Dec 31, 2023 09:36 AM Reporting Lab: [facility] [address] [facility] [address] Performing Lab: [facility] [address] [place] [phone] DILANTIN 19.7 ug/mL 10.0-20.0 Dec 31, 2023 10:06 AM [facility] TSH Specimen Type: SERUM Comment: , Tests performed on Axtria SN:[id number] (405) TSH within normal limits. Reflex testing not required. Ordering Provider: NATE BOLANOS Report Released Date/Time: Dec 31, 2023 09:37 AM Reporting Lab: [facility] [address] [facility] [address] Performing Lab: [facility] [address] [phone] TSH 3.45 u[IU]/mL 0.35-5.00 Dec 31, 2023 10:06 AM [facility] GLYCOHEMOGLOBIN (A1C ONLY) Specimen Type: BLOOD Comment: , Tests performed on Axtria SN:[id number] (405) Values obtained from A1C measurements can vary. For typical A1C assays, a reported value of 7.0 could actually be between 6.72 and 7.28 if measured by a reference method. A reported value of 9.0 could actually be between 8.73 and 9.27. Ref: http://www.ngsp. org/CAPdata.asp Ordering Provider: NATE BOLANOS Report Released Date/Time: Dec 20, 2023 11:26 AM Reporting Lab: [facility] [address] [facility] [address] Performing Lab: [facility] [address] [facility] [address] HEMOGLOBIN A1C 5.3 4.0-5.6 Dec 06, 2023 08:00 [facility] X1 SCREEN([facility]) Specimen Type: FECES Comment: Tests performed on [employer] Auto Micro 80(405) Ordering Provider: NATE BOLANOS Report Released Date/Time: Nov 07, 2023 01:34 PM Reporting Lab: [facility] [address] [facility] [address] Performing Lab: [facility] [address] [facility] [address] OCCULT BLOOD(FIT)#1 OF 1(J) Negative Negative Immunizations: All administered on the encounter date This section contains immunizations associated to the Encounter. Immunization Series Date Issued Reaction Comments COVID-19 (MODERNA), MRNA, LN P-S, PF, 50 MCG/0.5 ML (AGES 12+ YEARS) Dec 31, 2023 Social History: Smoking Status (Most current) and Tobacco Use (All prior to encounter date) This section includes the most current, and the historical, smoking and tobacco- related health factors from the [place] facility where the Encounter took place. Current Smoking Status This section includes the most current smoking, or tobacco-related health factor, from the [place] facility where the Encounter took place. Date/Time Current Smoking Status Comment Cherri vela Dec 24, 2023 11:30 AM VA-TOBACCO NEVER USED [facility] Tobacco Use History This section includes a history of the smoking, or tobacco-related health factors, that were collected on or before the date of the Encounter. The data comes from the [place] facility where the Encounter took place. Date/Time Smoking Status/Tobacco Use Comment F acrosa Feb 27, 2022 09:00 AM VA-TOBACCO NEVER USED [facility] Nov 04, 2020 08:30 AM VA-TOBACCO NEVER USED [facility] Oct 24, 2019 11:43 AM VA-TOBACCO NEVER USED [facility] Sep 11, 2018 03:54 PM VA-TOBACCO NEVER USED [facility] Jul 17, 2002 10:56 AM LIFETIME NON-SMOKER [facility] Mar 15, 2001 10:27 AM LIFETIME NON-SMOKER [facility] Advance Directives: All historical and current Section Date Range: From patient's date of to the date document was created. This section includes ALL of a patient's completed or amended [place] Advance and Rescinded Directives. The entries below indicate that a directive exists for the patient, but an actual copy is not included with this document. The data comes from all [place] facilities. Date Advance Directives Provider Source May 18, 2021 ADVANCE DIRECTIVE RICHARD DAN [facility] Encounter Notes: All associated encounter notes This section contains the clinical notes associated to the Encounter. Date/Time Encounter Note(s) Provider Source Dec 31, 2023 11:01 AM NURSING IMMUNIZATI ON NOTE: LOCAL TITLE: IMMUNIZATION AND VACCINATION NOTE STANDARD TITLE: NURSING IMMUNIZATION NOTE DATE OF NOTE: DEC 31, 2023@11:01 ENTRY DATE: DEC 31, 2023@11:02:04 AUTHOR: NATE AUGUST COSIGNER: URGENCY: STATUS: COMPLETED *Immunizations No INFLUENZA Immunizations on file within 1Y. ADMINISTERED Immunization Series Date Facility Reaction Info COVID-19 (MODERNA), MRNA, LNP-S,* 3 10/13/2021 [facility]* <C> CONTRAINDICATED No data available REFUSED ======= No data available <C> See the Detailed Immunizations Health Summary Component[DIM] for Comments * Value is truncated; see the Detailed Immunizations Health Summary Component[DIM] for complete text No FLU,HI DOS Immunizations on file within 1Y. Recorded Pneumococcal Vaccinations Information: Reminder Term: ME-PNEUMOC PPSV23 IMMUNIZATION Immunization: PNEUMOCOCCAL POLYSACCHARIDE PPV23 11/04/2020@08:30 No TD-ADULT Immunizations on file within 10Y. TDAP given on 09/25/18 Date of last Zoster Vaccine unknown COVID-19 Immunization: Moderna Monovalent (Spikevax) Administered: COVID-19 (MODERNA), MRNA, LNP-S, PF, 50 MCG/0.5 ML (AGES 12+ YEARS) Date Administered: Dec 31, 2023 11:01 Series: Booster Encoding Clerk: [place]. Lot: [id number] Exp Date: Mar 01, 2024 [facility]: [id number] Admin Route/Site: INTRAMUSCULAR/LEFT DELTOID Dosage: 0.5mL Vaccine Information Statement(s): COVID-19 MRNA VACCINE (12+ YRS) VACCINE VIS Jul 12, 2023 (BULGARIAN) Order By: Policy Administered By: Nate August Vaccine administered without complications. The patient was advised to remain in the facility for 15 minutes post vaccination. /garrick/ NATE AUGUST Registered Nurse Signed: 12/31/2023 11:03 NATE AUGUST [facility]
--- OUTSIDE RECORDS SUMMARY | 2024-04-14 14:00 | XMS_ITS | Encounter Summary ---
Author Name [facility] [place] Address [address] [place] [address] Care Team Providers Care Industrial Pipefitter Journeyman Name Role Phone LUIS MIGUELNATE Primary Care Provider Unavailabl e Selected Encounter This section includes the information on record at [place] for the Encounter. Date/Time Encounter Type Encounter Description Reason Pro vider Source Jul 04, 2023 11:22 AM Outpatient Encounter ADMIN PAT ACTIVTIES (SANDEEPNONCT) IHE Encounter Template Text not used by [place] Plan of Treatment: Future Appointments (+ 6 [...] AMBULATORY - MEDICINE AZALEA Cruz [facility] Dec 31, 2023 09:30 AM AMBULATORY - NONE ERAN NONA ZABALA [facility] Dec 31, 2023 09:30 AM AMBULATORY - [...] of theEncounter. The data comes from all [place] treatment facilities. Test Date/Time Test Type Test Details Facility Name Jul 09, 2023 12:00 AM Laboratory - Chemi stry Order THYROID TESTING CASCADE BLOOD(GOLD) SERUM SP [facility] Advance Directives: All historical and current [...] ADVANCE DIRECTIVE RICHARD DAN [facility] Encounter Notes: All associated encounter notes This section contains the clinical notes associated to the Encounter. Date/Time Encounter Note(s) Provider Source Jul 04, 2023 11:22 AM ADMINISTRATIVE NOT E: LOCAL TITLE: CCC: SCHEDULING ADMINISTRATION STANDARD TITLE: ADMINISTRATIVE NOTE DATE OF NOTE: JUL 04, 2023@11:22:55 ENTRY DATE: JUL 04, 2023@11:22:55 AUTHOR: RANDY TAYLOR EXP COSIGNER: URGENCY: STATUS: COMPLETED Patient Demographics Patient Name: BISMARK HAYWARD SSN: [id number] Patient Primary [address]: [address] [place] [address]
[place] [address] Patient Primary Phone: [phone] Patient : 1975 Patient Age: 47 Caller/Recipient Relation to Patient: Self Administrative Administrative Note Reason: Other Administrative Note Comments: Pt is returning call regarding antibiotics. Please call pt back at [phone] /es/ RANDY WEISS 1 [facility] Signed: 07/04/2023 11:23 Receipt Acknowledged By: 07/04/2023 13:43 /es/ CARROLL PETTY LPN 07/04/2023 11:43 /es/ IGNACIO TAYLORRANDY [facility]
--- OUTSIDE RECORDS SUMMARY | 2024-04-14 14:00 | XMS_ITS | Encounter Summary ---
Author Name [facility] [facility] [place] [facility] [place] Address [address], [place] [address] Care Team Providers Care Bench Molder Apprentice Name Role Phone NATE BOLANOS Primary Care Provider Unavailabl e Selected Encounter This section includes the information on record at [place] for the Encounter. Date/Time Encounter Type Encounter Description Reason Provider Source Jul 04, 2023 03:00 PM OFFICE O/P EST LOW 20-29 MIN PRIMARY CARE/MEDICINE ICD-10-CM L03.011 Cellulitis of right finger FRANK MCKOY IHE Encounter Template Text not used by [place] Assessments - Encounter Diagnoses This section includes the primary and secondary diagnoses documented for the Encounter. Date/Time Primary/Secondary Diagnosis Diagnosis Name Provider Source Jul 04, 2023 03:26 PM PR[facility] Plan of Treatment: Future Appointments (+ 6 [...] 20 appointments. The data comes from all [place] treatment facilities. Appointment Date/Time Appointment Type Appointme nt Facility Name Oct 24, 2023 01:15 PM AMBULATORY - NONE [facility] Dec 24, 2023 11:30 AM AMBULATORY - MEDICINE [facility] Dec 31, 2023 09:30 AM AMBULATORY - NONE ERAN [facility] Dec 31, 2023 09:30 AM AMBULATORY - [...] of theEncounter. The data comes from all [facility] facilities. Test Date/Time Test Type Test Details Facility Name Jul 09, 2023 12:00 AM Laboratory - Chemi stry Order THYROID TESTING CASCADE BLOOD(GOLD) SERUM SP [facility] Advance Directives: All historical and current Section Date Range: From patient's date of to the date document was created. This section includes ALL of a patient's completed or amended [place] Advance and Rescinded Directives. The entries below indicate that a directive exists for the patient, but an actual copy is not included with this document. The data comes from all [place] facilities. Date Advance Directives Provider Source May 18, 2021 ADVANCE DIRECTIVE RICHARD DAN MARY [facility] Encounter Notes: All associated encounter notes This section contains the clinical notes associated to the Encounter. Date/Time Encounter Note(s) Provider Source Jul 04, 2023 01:09 PM TELEHEALTH NOTE: LOCAL TITLE: VIDEO-CONNECT NOTE STANDARD TITLE: TELEHEALTH NOTE DATE OF NOTE: JUL 04, 2023@13:09 ENTRY DATE: JUL 04, 2023@13:09:33 AUTHOR: COLE MCKOY COSIGNER: URGENCY: STATUS: COMPLETED [facility] Connect appointment: Provider confirmed that [place] is currently located at the following address listed in their CPRS chart. [address], [place] [address] e-911: Call [phone] to speak with an agent who can put you in touch with a multicraft operator at the Patient's location. You must have the physical location (address) where the Patient is currently located. Verbal informed consent has been obtained. SUBJ: Went to urgent care on 06/21 with concern for finger infection. Diagnosed with paronychia. Given 10 days of keflex and directed to do epsom salt soaks. Completed antibiotic course, with some minimal improvement, has not worsened but has not completely resolved. Today, R middle finger directly adjacent to nailbed continues to be red and tender with some possible fluctulance per . Denies fevers or chills. No pain in joint space. No redness or tenderness in other fingers. Denies any allergies to antibiotics. PMH: Active problems - Computerized Problem List is the source for the followin. Low back pain 2. Varicose veins 3. Pain of right knee joint 4. Essential hypertension 5. Epilepsy 6. AF- Atrial Fibrillation ([facility] [id number]) 7. Cardiomyopathy 8. Mitral valve regurgitation 9. Obstructive sleep apnea syndrome 10. GERD - Gastro-Esophageal Reflux Disease ([facility] [id number]) 11. Depressive disorder 12. Genital warts 13. Family History of Psychiatric Condition 14. Family History of Diabetes Mellitus 15. Hypothyroidism (SNOMED CT [id number]) MEDS: Active Outpatient Medications (excluding Supplies): Active Outpatient [...] EVERY EVENING ### 8) LEVOTHYROXINE NA (SYNTHROID) 112MCG TAB TAKE TWO ACTIVE TABLETS BY MOUTH EVERY MORNING FOR THYROID HALF-HOUR BEFORE FOOD INCREASE IN DOSE 9) LISINOPRIL 5MG TAB TAKE ONE TABLET BY MOUTH EVERY DAY ACTIVE TO CONTROL BLOOD PRESSURE 10) MELATONIN 5MG CAP/TAB TAKE ONE CAP/TAB BY MOUTH EVERY ACTIVE DAY FOR SLEEP 11) PHENYTOIN NA (DILANTIN) [...] ACTIVE TOPICALLY TWICE DAILY NEEDED FOR DERMATITIS Outside [facility] meds: ALLERGIES: Patient has answered NKA Glomerular Filtration Rate: eGFR - NONE FOUND OBJ: BP: 143/92 (02/27/2022 08:54) Pulse: 60 (02/27/2022 08:54) Temp: 97.3 F [36.3 C] (02/27/2022 08:54) Resp: 20 (02/27/2022 08:54) HT(in): 70 in [177.8 cm] (02/27/2022 08:54) WT(lbs):248.4 lb [112.67 kg] (02/27/2022 08:54) PULSE OXIMETRY - NONE FOUND - 1M General- Well-appearing, no apparent distress. Extremities: R middle finger erythematous around nail bed with raised area on lateral edge. Full rom of dip and pip joints. A/P: 47 year old male with above PMH presenting with continued infection of R middle finger, consistent with paronychia. Challenging to fully determine on VVC visit but there is some concern for fluctuance, consistent with a possible abscess. No cultures done at urgent care visit; question of possible MRSA infection that was not treated with keflex versus abscess that was not treated with antibiotics. Discussed going to urgent care for possible I&D today versus trialing antibiotics for MRSA and see if he has improvement. would like to avoid going to urgent care today; will trial doxycycline for MRSA coverage but is aware that if he has no improvement over the next few days, he will need to go to urgent care for possible drainage. #Paronychia -doxycycline 100 mg BID for 7 days -urgent care for I&D if no improvement over next few days /es/ COLE MCKOY MD Signed: 07/04/2023 15:26 COLE MCKOY [facility]
--- OUTSIDE RECORDS SUMMARY | 2024-04-14 14:00 | XMS_ITS | Encounter Summary ---
Author Name [facility] [place] [facility] [place] Address [address], [place] [address] Care Team Providers Care Announcer Name Role Phone NATE BOLANOS Primary Care Provider Unavailabl e Selected Encounter This section includes the information on record at [place] for the Encounter. Date/Time Encounter Type Encounter Description Reason Provider Source Jul 04, 2023 11:23 AM Outpatient Encounter TELEPHONE TRIAGE YOLANDA ARGUELLO [facility] Encounter Template Text not used by [place] Plan of Treatment: Future Appointments (+ 6 months) and Future Tests (+/- 45 days) The Plan of Treatment section includes future care activities for the patient from all [place] treatmentfacilities. This section includes future appointments and future orders which are active, pending or scheduled. Future Appointments This section includes appointments that were scheduled to occur 6 months from the date of the Encounter, up to a maximum of 20 appointments. The data comes from all [place] treatment facilities. Appointment Date/Time Appointment Type Appointme nt Facility Name Oct 24, 2023 01:15 PM AMBULATORY - NONE [facility] Dec 24, 2023 11:30 AM AMBULATORY - MEDICINE AZALEA Cruz [facility] Dec 31, 2023 09:30 AM AMBULATORY - NONE ERAN ZABALA [facility] Dec 31, 2023 09:30 AM AMBULATORY [...] of theEncounter. The data comes from all [place] treatment facilities. Test Date/Time Test Type Test Details Facility Name Jul 09, 2023 12:00 AM Laboratory - Chemi stry Order THYROID TESTING CASCADE BLOOD(GOLD) SERUM SP [facility] Advance [...] this document. The data comes from all [place] facilities. Date Advance Directives Provider Source May 18, 2021 ADVANCE DIRECTIVE RICHARD DAN [facility] Encounter Notes: All associated encounter notes This section contains the clinical notes associated to the Encounter. Date/Time Encounter Note(s) Provider Source Jul 04, 2023 11:43 AM ADDENDUM: LOCAL TITLE: Addendum STANDARD TITLE: ADDENDUM DATE OF NOTE: JUL 04, 2023@11:43:49 ENTRY DATE: JUL 04, 2023@11:43:50 AUTHOR: IGNACIO ROSENBERG EXP COSIGNER: URGENCY: STATUS: COMPLETED contact with vet- states infection of finger has not resolved- completed course of atb 2 days ago. Pain status- only when bumped. Seeking further intervention as not progressing to healing. Vet is amenable to VVC at 3pm Jul 04 Confirmed email address: [email or web address] /[email or web address]/ IGNACIO ROSENBERG RN Signed: 07/04/2023 11:48 Receipt Acknowledged By: 07/04/2023 12:33 /es/ CHAPO SCHULER Health Clam Grower 07/04/2023 12:41 /es/ MORGAN GREENWOOD === --- Original Document --- 07/04/23 CCC: CLINICAL TRIAGE: Patient Demographics Patient Name: BISMARK HAYWARD SSN: [id number] Patient Primary [address]: [address] [place] [address]
[place] [address] Patient Primary Phone: [phone] Patient : 1975 Patient Age: 47 Call Back Number: [phone] Caller/Recipient Relation to Patient: Self Emergency Contact: ENRICO HAYWARD Triage Summary Conducted triage/discussed symptoms Utilized the Triage Tool: No Nursing Plan and Disposition Referred Patient for In-Person Appt Other course(s) of action Transferred patient to [facility] & Admin-Apt Generated msg to PACT/Provider Provided guidance for worsening symptoms: *Caller/Patient* advised to call facilities [place] Clinical Contact Center or seek immediate medical attention for new or worsening symptoms Nurse Summary Nurse Summary: NON TRIAGE NOTE TO PACT: TRIAGE EXPLAINED/OFFERED - VET POLITELY DECLINED. VET IS REQUESTING A CALL BACK @ [phone] SITUATION: [place] stated He was seen on the for his RIGHT 3rd finger infection. He was started on Cephalexin x 10 days. He finished antibiotic 2 days ago. Finger infection has not completely resolved. Has not worsened. He would like to know what the next step would be. Notes in CPRS indicated that PACT team had previously reached out to pt without success. Pt warm transferred to [facility] to see if message could get to PACT. He is aware for worsening condition to return to the that he was seen at PACT TEAM : Please contact patient to make an appointment / determine plan of care/follow up needs. Confirmed contact information to be correct Pt aware to call [facility] forensic engineer back for worsening conditions. x Non-Triage/Non-Symptom Call Generated msg to PACT/Provider-NonTriage Clinical Contact Center Codes Clinic/Location: V1 [facility] PHONE CCC RN /garrick/ YOLANDA ARGUELLO VISN1 CCCRN Signed: 07/04/2023 11:24 Receipt Acknowledged By: * AWAITING SIGNATURE * MALINDALOSCARROLL M 07/04/2023 11:43 /garrick/ IGNACIO ROSENBERG RN 07/04/2023 ADDENDUM STATUS: COMPLETED VVC test not performed. has done them in the past. VVC scheduled today at 1500 with Kristina/Nathan /garrick/ MORGAN GREENWOOD Signed: 07/04/2023 12:41 IG[facility]CIO ROSENBERG [facility] Jul 04, 2023 11:23 AM RN PROGRESS NOTE: LOCAL TITLE: CCC: CLINICAL TRIAGE STANDARD TITLE: RN PROGRESS NOTE DATE OF NOTE: JUL 04, 2023@11:23:56 ENTRY DATE: JUL 04, 2023@11:23:56 AUTHOR: YOLANDA ARGUELLO EXP COSIGNER: URGENCY: STATUS: COMPLETED CCC: CLINICAL TRIAGE Has ADDENDA Patient Demographics Patient Name: BISMARK HAYWARD SSN: [id number] Patient Primary [address]: [address] [place] [address]
[place] [address] Patient Primary Phone: [phone] Patient : 1975 Patient Age: 47 Call Back Number: [phone] Caller/Recipient Relation to Patient: Self Emergency Contact: ENRICO HAYWARD Triage Summary Conducted triage/discussed symptoms Utilized the Triage Tool: No Nursing Plan and Disposition Referred Patient for In-Person Appt Other course(s) of action Transferred patient to Sched & Admin-Apt Generated msg to PACT/Provider Provided guidance for worsening symptoms: *Caller/Patient* advised to call facilities [place] Clinical Contact Center or seek immediate medical attention for new or worsening symptoms Nurse Summary Nurse Summary: NON TRIAGE NOTE TO PACT: TRIAGE EXPLAINED/OFFERED - VET POLITELY DECLINED. VET IS REQUESTING A CALL BACK @ [phone] SITUATION: [place] stated He was seen on the for his RIGHT 3rd finger infection. He was started on Cephalexin x 10 days. He finished antibiotic 2 days ago. Finger infection has not completely resolved. Has not worsened. He would like to know what the next step would be. Notes in CPRS indicated that PACT team had previously reached out to pt without success. Pt warm transferred to [facility] to see if message could get to PACT. He is aware for worsening condition to return to the that he was seen at PACT TEAM : Please contact patient to make an appointment / determine plan of care/follow up needs. Confirmed contact information to be correct Pt aware to call [facility] forensic engineer back for worsening conditions. x Non-Triage/Non-Symptom Call Generated msg to PACT/Provider-NonTriage Clinical Contact Center Codes Clinic/Location: V1 [facility] PHONE [facility] RN /garrick/ YOLANDA ARGUELLO VISN1 CCCRN Signed: 07/04/2023 11:24 Receipt Acknowledged By: 07/04/2023 13:44 /es/ CARROLL PETTY LPN 07/04/2023 11:43 /garrick/ IGNACIO ROSENBERG RN 07/04/2023 ADDENDUM STATUS: COMPLETED contact with vet- states infection of finger has not resolved- completed course of atb 2 days ago. Pain status- only when bumped. Seeking further intervention as not progressing to healing. Vet is amenable to VVC at 3pm Jul 04 Confirmed email address: [email or web address] /[email or web address]/ IGNACIO ROSENBERG RN Signed: 07/04/2023 11:48 Receipt Acknowledged By: 07/04/2023 12:33 /es/ CHAPO SCHULER Health [employer]er 07/04/2023 12:41 /garrick/ MORGAN GREENWOOD 07/04/2023 ADDENDUM STATUS: COMPLETED VVC test not performed. has done them in the past. VVC scheduled today at 1500 with Kristina/Nathan /garrick/ MORGAN GREENWOOD Signed: 07/04/2023 12:41 YOLANDA ARGUELLO [facility]
--- OUTSIDE RECORDS SUMMARY | 2024-04-14 14:00 | XMS_ITS | Encounter Summary ---
Author Name [facility] Organization [facility] [place] Address [address] [place] [address] Care Team Providers Care Tourist Agent Name Role Phone LUIS MIGUEL NATE Primary Care Provider Unavailabl e Selected Encounter This section includes the information on record at OR for the Encounter. Date/Time Encounter Type Encounter Description Reason Provider Source Jan 07, 2024 02:29 PM Outpatient Encounter PRIMARY CARE/MEDICINE SAE DOWD Encounter Template Text not used by OR Plan of Treatment: Future Appointments (+ 6 months) and Future Tests (+/- 45 days) The Plan of Treatment section includes future care activities for the patient from all OR treatmentfacilities. This section includes future appointments and future orders which are active, pending or scheduled. Future Appointments This section includes appointments that were scheduled to occur 6 months from the date of the Encounter, up to a maximum of 20 appointments. The data comes from all [place] treatment facilities. Appointment Date/Time Appointment Type Appointme nt Facility Name Jan 14, 2024 10:30 AM AMBULATORY - MEDICINE [facility] Mar 05, 2024 12:37 PM AMBULATORY - MEDICINE [facility] Mar 11, 2024 08:00 AM AMBULATORY - SURGERY [facility] Mar 11, 2024 09:30 AM AMBULATORY - SURGERY [facility] Apr 02, 2024 12:30 PM [place] [facility] Apr 04, 2024 10:00 AM [facility] [place] [facility] Apr 07, 2024 09:45 AM AMBULATORY - NONE [facility] Apr 08, 2024 11:15 AM [facility] [place] [facility] Apr 09, 2024 10:30 AM [place] [facility] Apr 10, 2024 09:15 AM [place] [place] [facility] Apr 10, 2024 09:30 AM [place] [place] [facility] Apr 10, 2024 12:00 PM [place] [facility] Apr 10, 2024 01:00 PM [place] [place] [facility] Apr 14, 2024 07:00 AM [facility] [place] [facility] Apr 15, 2024 10:45 AM [place] [place] [facility] Apr 21, 2024 11:00 AM [facility] [place] [facility] Jun 11, 2024 09:00 AM [place] [place] [facility] Jun 18, 2024 09:00 AM [facility] [place] Jun 25, 2024 09:00 AM [facility] [place] Jul 02, 2024 09:00 AM [facility] [place] [facility] Active, Pending, and Scheduled Orders This section includes a listing of several types of active, pending, and scheduled orders, including clinic medications orders, diagnostic test orders, procedure orders and consult orders; where the start date of the order is 45 days before the date of the Encounter or 45 days after the date of theEncounter. The data comes from all [place] treatment facilities. Test Date/Time Test Type Test Details Facility Name Dec 31, 2023 10:27 AM Consult Order MOVE! OUTP ATIENT Cons Sales Representative [employer] [facility] Lab Results: +/- 30 days of [...] analytical performance characteristics have been determined by [facility] [place], [place]. It has not been cleared or approved by the U.S. Food and Drug Administration. This assay has been validated pursuant to the CLIA regulations and is used for clinical purposes. Test Performed by [facility], [facility], [address] [place], [place] Leland Gamble M.D., Ph.D., Director of Laboratories , CLIA [id number] Ordering Provider: NATE BOLANOS Report Released Date/Time: Dec 31, 2023 09:36 AM Reporting Lab: [facility] [address] [address] Performing Lab: [facility] [address] [facility] LAMOTRIGINE(Q) 4.8 ug/mL 2.5-15.0 Dec 31, 2023 10:06 AM [facility] CBC NO DIFF Specimen Type: BLOOD No comment entered. Ordering Provider: NATE BOLANOS Report Released Date/Time: Dec 20, 2023 11:26 AM Reporting Lab: [facility] [address] [address] Performing Lab: [facility] [address] [address] WBC 6.2 10*3/uL 4.5-11.0 RBC 5.13 10*6/uL 4.23-5.66 HGB 16.3 g/dL 12.8-17 HEMATOCRIT 47.6 39.2-50.4 MCV 92.8 fL 82-99 MCH 31.8 pg 26.2-32.6 MCHC 34.2 g/dL 30.8-35.1 PLT 263 10*3/uL 140-360 MPV 9.9 fL 9.2-12.4 RDW 11.8 L 12.0-16.0 Dec 31, 2023 10:06 AM [facility] LIVER PROFILE Specimen Type: PLASMA Comment: , Tests performed on [employer] Jarett SN:[id number] (405). Ordering Provider: NATE BOLANOS Report Released Date/Time: Dec 20, 2023 11:26 AM Reporting Lab: [facility] [address] [address] Performing Lab: [facility] [address] [address] PROTEIN, TOTAL 7.8 g/dL 6.0-8.5 ALBUMIN 4.3 g/dL 3.2-5.0 BILIRUBIN, TOTAL 0.4 mg/dL 0.2-1.2 ALKALINE PHOSPHATASE 144 U/L 40-150 ALT(SGPT) 37 U/L 7-52 AST(SGOT) 30 U/L 5-34 FIB-4 SCORE 0.92 <2.67 Dec 31, 2023 10:06 AM [facility] LIPOPROTEIN CHOLESTEROL FRACT. PANEL Specimen Type: PLASMA Comment: , Tests performed on [employer] Jarett SN:[id number] (405). Ordering Provider: NATE BOLANOS Report Released Date/Time: Dec 20, 2023 11:26 AM Reporting Lab: [facility] [address] [address] Performing Lab: [facility] [address] [address] CHOLESTEROL 171 mg/dL 0-200 TRIGLYCERIDE 55 mg/dL 0-150 HDL CHOLESTEROL 60 mg/dL >40 LDL CHOLESTEROL (CALC) 100 mg/dL 0-129 Dec 31, 2023 10:06 AM [facility] P4 GLU,BUN,CREAT,LYTES,CA Specimen Type: PLASMA Comment: , Tests performed on [employer] Jarett SN:[id number] (405). Ordering Provider: NATE BOLANOS Report Released Date/Time: Dec 20, 2023 11:26 AM Reporting Lab: [facility] [address] [address] Performing Lab: [facility] [address] [address] UREA NITROGEN 20 mg/dL 7-25 SODIUM 137 mmol/L 135-145 POTASSIUM 4.6 mmol/L 3.5-5.0 CHLORIDE 105 mmol/L 100-110 CARBON DIOXIDE 21 mmol/L 20-30 ANION GAP 11 4-16 GLUCOSE 86 mg/dL 65-100 CREATININE 1.00 mg/dL 0.50-1.50 CALCIUM 10.3 mg/dL 8.5-10.5 eGFR(CKD-EPI 2020) >90 mL/min See_Commen t Dec 31, 2023 10:06 AM [facility] GLYCOHEMOGLOBIN (A1C ONLY) Specimen Type: BLOOD Comment: , Tests performed on [employer] [place] SN:[id number] (405) Values obtained from A1C measurements can vary. For typical A1C assays, a reported value of 7.0 could actually be between 6.72 and 7.28 if measured by a reference method. A reported value of 9.0 could actually be between 8.73 and 9.27. Ref: http://www.ngsp. org/CAPdata.asp Ordering Provider: NATE BOLANOS Report Released Date/Time: Dec 20, 2023 11:26 AM Reporting Lab: [facility] [address] [address] Performing Lab: [facility] [address] [address] HEMOGLOBIN A1C 5.3 4.0-5.6 Dec 31, 2023 10:06 AM [facility] DILANTIN Specimen Type: SERUM Comment: LAST DOSE 8:00 AM 12/31/23 , Tests performed on [employer] SN:[id number] (405). Ordering Provider: NATE BOLANOS Report Released Date/Time: Dec 31, 2023 09:36 AM Reporting Lab: [facility] [address] [address] Performing Lab: [facility] [address] [address] DILANTIN 19.7 ug/mL 10.0-20.0 Dec 31, 2023 10:06 AM [facility] TSH Specimen Type: SERUM Comment: , Tests performed on [employer] SN:[id number] (405) TSH within normal limits. Reflex testing not required. Ordering Provider: NATE BOLANOS Report Released Date/Time: Dec 31, 2023 09:37 AM Reporting Lab: [facility] [address] [address] Performing Lab: [facility] [address] [address] TSH 3.45 u[IU]/mL 0.35-5.00 Advance Directives: All [...] this document. The data comes from all OR facilities. Date Advance Directives Provider Source May 18, 2021 ADVANCE DIRECTIVE RICHARD DAN MARY BETH BARILLAS [facility] Encounter Notes: All associated encounter notes This section contains the clinical notes associated to the Encounter. Date/Time Encounter Note(s) Provider Source Jan 08, 2024 02:33 PM ADDENDUM: LOCAL TITLE: Addendum STANDARD TITLE: ADDENDUM DATE OF NOTE: JAN 08, 2024@14:33:55 ENTRY DATE: JAN 08, 2024@14:33:56 AUTHOR: IGNACIO ROSENBERG EXP COSIGNER: URGENCY: STATUS: COMPLETED contact with vet- varicous veins are getting worse- seeking information on moving forward with plan of care with vascular. /garrick/ IGNACIO ROSENBERG RN Signed: 01/08/2024 14:35 Receipt Acknowledged By: 01/08/2024 16:15 /garrick/ NATE BOLANOS M.D === --- Original Document --- 01/07/24 PRIMARY CARE SECURE MESSAGING: ------Original Message ------ Sent: 01/07/2024 02:33 PM ET From: BISMARK HAYWARD To: Maribel BOLANOS_PRIMARYCARE_LIT Subject: General:referrals just wondering about the referrals for the move program and surgery thank you /garrick/ SAE GUZMAN Signed: 01/07/2024 15:29 Receipt Acknowledged By: 01/07/2024 15:44 /ayla PETTY LPN 01/08/2024 14:17 /ayla ROSENBERG RN 01/07/2024 ADDENDUM STATUS: COMPLETED Comment is placed to inquire about next steps in the move program /ayla PETTY LPN Signed: 01/07/2024 15:41 IGNACIO ROSENBERG [facility] Jan 07, 2024 02:29 PM PRIMARY CARE SECUR E MESSAGING: LOCAL TITLE: PRIMARY CARE SECURE MESSAGING STANDARD TITLE: PRIMARY CARE SECURE MESSAGING DATE OF NOTE: JAN 07, 2024@14:29 ENTRY DATE: JAN 07, 2024@15:29:01 AUTHOR: SAE DOWD COSIGNER: URGENCY: STATUS: COMPLETED PRIMARY CARE SECURE MESSAGING Has ADDENDA ------Original Message ------ Sent: 01/07/2024 02:33 PM ET From: BISMARK HAYWARD To: Maribel BOLANOS_PRIMARYCARE_LIT Subject: General:referrals just wondering about the referrals for the move program and surgery thank you /ayla GUZMAN Signed: 01/07/2024 15:29 Receipt Acknowledged By: 01/07/2024 15:44 /ayla PETTY LPN 01/08/2024 14:17 /ayla ROSENBERG RN 01/07/2024 ADDENDUM STATUS: COMPLETED Comment is placed to inquire about next steps in the move program /garrick/ CARROLL PETTY LPN Signed: 01/07/2024 15:41 01/08/2024 ADDENDUM STATUS: COMPLETED contact with vet- varicous veins are getting worse- seeking information on moving forward with plan of care with vascular. /ayla ROSENBERG RN Signed: 01/08/2024 14:35 Receipt Acknowledged By: * AWAITING SIGNATURE * NATE BOLANOS [facility] [place] [facility]
--- OUTSIDE RECORDS SUMMARY | 2024-04-14 14:00 | XMS_ITS | Encounter Summary ---
Author Name [facility] ([place] Organization [facility] ([place]) Address [address] [place] [address] Care Team Providers Care Speech Lang Path Therapist Name Role Phone NATE BOLANOS Primary Care Provider Unavailabl e Selected Encounter This section includes the information on record at OR for the Encounter. Date/Time Encounter Type Encounter Description Reason Provider Source Dec 31, 2023 09:30 AM OFFICE O/P EST MOD 30 MIN PRIMARY CARE/MEDICINE ICD-10-CM I86.8 Varicose veins of other specified sites NATE BOLANOS [facility] Encounter Template Text not used by OR Assessments - Encounter Diagnoses This section includes the primary and secondary diagnoses documented for the Encounter. Date/Time Primary/Secondary Diagnosis Diagnosis Name Provider Source Dec 31, 2023 10:24 AM PRIMARY Varicose veins of other specified sites [facility]OLANOS [facility] Dec 31, 2023 10:24 AM SECONDARY Essential (primary) hypertension NATE BOLANOS [facility] Dec 31, 2023 10:24 AM SECONDARY Hypothyroidism, unspecified NATE BOLANOS [facility] Plan of Treatment: Future Appointments [...] AM[facility] Mar 05, 2024 12:37 PM [facility]BUL[facility] Mar 11, 2024 08:00 AM AMBULATORY - SURGERY [facility] Mar 11, 2024 09:30 AM AMBULATORY - SURGERY [facility] Apr 02, 2024 12:30 PM [facility] Apr 04, 2024 10:00 AM [facility] Apr 07, 2024 09:45 AM AMBULATORY - NONE [facility] Apr 08, 2024 11:15 AM [facility] Apr 09, 2024 10:30 AM AMBULATORY - SURGERY [facility] Apr 10, 2024 09:15 AM AMBULATORY - SURGERY [facility] Apr 10, 2024 09:30 AM [facility] - NONE [facility] Apr 10, 2024 12:00 PM AMBULATORY - SURGERY [facility] Apr 10, 2024 01:00 PM [facility] Apr 14, 2024 07:00 AM AM[facility]ULATORY - NONE [facility] Apr 15, 2024 10:45 AM [facility] Apr 21, 2024 11:00 AM [facility]IC[facility] Jun 11, 2024 09:00 AM [facility]IC[facility] Jun 18, 2024 09:00 AM [facility] Jun 25, 2024 09:00 AM [facility] Active, Pending, and Scheduled Orders This [...] AM Consult Order MOVE! OUTP ATIENT Cons General Sales Manager's Choice ERAN BOWEN [facility] Lab Results: +/- 30 days of the encounter This section includes the Chemistry and Hematology Lab Results on record with OR for the patient. Radiology Reports and Pathology Reports are provided separately, in subsequent sections. Lab Results This section contains the Chemistry/Hematology Results that were resulted 30 days before or 30 daysafter the date of the Encounter. Date/Time Source Result Type Result - Unit Interpretation Reference Range Comment Dec 31, 2023 10:06 AM [facility] LAMOTRIGINE(Q) Specimen Type: SERUM Comment: This test was developed and its analytical performance characteristics have been determined by [employer] [place], [place]. It has not been cleared or approved by the U.S. Food and Drug Administration. This assay has been validated pursuant to the CLIA regulations and is used for clinical purposes. Test Performed by [facility], [employer] [facility], [address] [place] [address] Leland Gamble M.D., Ph.D., Director of Laboratories , CLIA [id number] Ordering Provider: NATE BOLANOS Report Released Date/Time: Dec 31, 2023 09:36 AM Reporting Lab: [facility] [address] [facility] [address] Performing Lab: [facility] [id number] [facility] LAMOTRIGINE(Q) 4.8 ug/mL 2.5-15.0 Dec 31, 2023 10:06 AM [facility] LIPOPROTEIN CHOLESTEROL FRACT. PANEL Specimen Type: PLASMA Comment: , Tests performed on CWR Mobility SN:[id number] (351). Ordering Provider: NATE BOLANOS Report Released Date/Time: Dec 20, 2023 11:26 AM Reporting Lab: [facility] [address] [facility] [address] Performing Lab: [facility] [address] [facility] [address] CHOLESTEROL 171 mg/dL 0-200 TRIGLYCERIDE 55 mg/dL 0-150 HDL CHOLESTEROL 60 mg/dL >40 LDL CHOLESTEROL (CALC) 100 mg/dL 0-129 Dec 31, 2023 10:06 AM [facility] CBC NO DIFF Specimen Type: BLOOD No comment entered. Ordering Provider: NATE BOLANOS Report Released Date/Time: Dec 20, 2023 11:26 AM Reporting Lab: [facility] [address] [facility] [address] Performing Lab: [facility] [address] [facility] [address] WBC 6.2 10*3/uL 4.5-11.0 RBC 5.13 10*6/uL 4.23-5.66 HGB 16.3 g/dL 12.8-17 HEMATOCRIT 47.6 39.2-50.4 MCV 92.8 fL 82-99 MCH 31.8 pg 26.2-32.6 MCHC 34.2 g/dL 30.8-35.1 PLT 263 10*3/uL 140-360 MPV 9.9 fL 9.2-12.4 RDW 11.8 L 12.0-16.0 Dec 31, 2023 10:06 AM [facility] LIVER PROFILE Specimen Type: PLASMA Comment: , Tests performed on Interview Rocket Jarett SN:[id number] (405). Ordering Provider: NATE BOLANOS Report Released Date/Time: Dec 20, 2023 11:26 AM Reporting Lab: [facility] [address] [facility] [address] Performing Lab: [facility] [address] [facility] [address] PROTEIN, TOTAL 7.8 g/dL 6.0-8.5 ALBUMIN 4.3 g/dL 3.2-5.0 BILIRUBIN, TOTAL 0.4 mg/dL 0.2-1.2 ALKALINE PHOSPHATASE 144 U/L 40-150 ALT(SGPT) 37 U/L 7-52 AST(SGOT) 30 U/L 5-34 FIB-4 SCORE 0.92 <2.67 Dec 31, 2023 10:06 AM [facility] P4 GLU,BUN,CREAT,LYTES,CA Specimen Type: PLASMA Comment: , Tests performed on CWR Mobility SN:[id number] (405). Ordering Provider: NATE BOLANOS Report Released Date/Time: Dec 20, 2023 11:26 AM Reporting Lab: [facility] [address] [facility] [address] Performing Lab: [facility] [address] [facility] [address] UREA NITROGEN 20 mg/dL 7-25 SODIUM 137 mmol/L 135-145 POTASSIUM 4.6 mmol/L 3.5-5.0 CHLORIDE 105 mmol/L 100-110 CARBON DIOXIDE 21 mmol/L 20-30 ANION GAP 11 4-16 GLUCOSE 86 mg/dL 65-100 CREATININE 1.00 mg/dL 0.50-1.50 CALCIUM 10.3 mg/dL 8.5-10.5 eGFR(CKD-EPI 2020) >90 mL/min See_Commen t Dec 31, 2023 10:06 AM [facility] GLYCOHEMOGLOBIN (A1C ONLY) Specimen Type: BLOOD Comment: , Tests performed on Rose [employer] Craven SN:[id number] (405) Values obtained from A1C measurements can vary. For typical A1C assays, a reported value of 7.0 could actually be between 6.72 and 7.28 if measured by a reference method. A reported value of 9.0 could actually be between 8.73 and 9.27. Ref: http://www.[email or web address] [email or web address].asp Ordering Provider: NATE BOLANOS Report Released Date/Time: Dec 20, 2023 11:26 AM Reporting Lab: [facility] [address] [facility] [address] Performing Lab: [facility] [address] [facility] [address] HEMOGLOBIN A1C 5.3 4.0-5.6 Dec 31, 2023 10:06 AM [facility] DILANTIN Specimen Type: SERUM Comment: LAST DOSE 8:00 AM 12/31/23 , Tests performed on Rose [employer] Jarett SN:[id number] (405). Ordering Provider: NATE BOLANOS Report Released Date/Time: Dec 31, 2023 09:36 AM Reporting Lab: [facility] [address] [facility] [address] Performing Lab: [facility] [address] [facility] [address] DILANTIN 19.7 ug/mL 10.0-20.0 Dec 31, 2023 10:06 AM [facility] TSH Specimen Type: SERUM Comment: , Tests performed on Rose Buyer Agent Craven SN:[id number] (405) TSH within normal limits. Reflex testing not required. Ordering Provider: NATE BOLANOS Report Released Date/Time: Dec 31, 2023 09:37 AM Reporting Lab: [facility] [address] [facility] [address] Performing Lab: [facility] [address] [facility] [address] TSH 3.45 u[IU]/mL 0.35-5.00 Dec 06, 2023 08:00 AM [facility] OCCULT BLOOD FIT X1 SCREEN([facility]) Specimen Type: FECES Comment: Tests performed on [employer] 80(405) Ordering Provider: NATE BOLANOS Report Released Date/Time: Nov 07, 2023 01:34 PM Reporting Lab: [facility] [address] [facility] [address] Performing Lab: [facility] [address] [facility] [address] OCCULT BLOOD(FIT)#1 OF 1([facility]) Negative Negative Social History: Smoking Status (Most current) and Tobacco Use (All prior to encounter date) This section includes the most current, and the historical, smoking and tobacco- related health factors from the OR facility where the Encounter took place. Current Smoking Status This section includes the most current smoking, or tobacco-related health factor, from the OR facility where the Encounter took place. Date/Time Current Smoking Status Comment Cherri vela Dec 24, 2023 11:30 AM VA-TOBACCO NEVER USED [facility] Tobacco Use History This section includes a history of the smoking, or tobacco-related health factors, that were collected on or before the date of the Encounter. The data comes from the OR facility where the Encounter took place. Date/Time [...] Jul 17, 2002 10:56 AM LIFETIME NON-SMOKER [facility] Mar 15, 2001 10:27 AM LIFETIME NON-SMOKER [facility] Advance Directives: All historical and current Section Date Range: From patient's date of to the date document was created. This section includes ALL of a patient's completed or amended OR Advance and Rescinded Directives. The entries below indicate that a directive exists for the patient, but an actual copy is not included with this document. The data comes from all OR facilities. Date Advance Directives Provider Source May 18, 2021 ADVANCE DIRECTIVE RICHARD DAN [facility] Encounter Notes: All associated encounter notes This section contains the clinical notes associated to the Encounter. Date/Time Encounter Note(s) Provider Source Jan 07, 2024 08:53 AM LETTERS: LOCAL TITLE: Letter to Patient - [facility] TITLE: LETTERS DATE OF NOTE: JAN 07, 2024@08:53 ENTRY DATE: JAN 07, 2024@08:53:44 AUTHOR: NATE BOLANOS COSIGNER: URGENCY: STATUS: COMPLETED JAN 07, 2024 BISMARK HAYWARD [address], [place] [address] Dear BISMARK HAYWARD: Your recent test results are as follows: labs including the dilantin and lamotrigine levels are stable. Labs (14 Days) Collection DT Specimen Test Name Result Units Ref Range 12/31/2023 10:06 SERUM !! TSH 3.45 uIU/mL 0.35 - 5.00 12/31/2023 10:06 SERUM !! DILANTIN 19.7 ug/mL 10 - 20 12/31/2023 10:06 SERUM !! LAMOTRIGINE(Q) 4.8 mcg/mL 2.5 - 15.0 12/31/2023 10:06 PLASMA!! GLUCOSE 86 mg/dL 65 - 100 !! UREA NITROGEN 20 mg/dL 7 - 25 !! CREATININE 1.00 mg/dL 0.50 - 1.50 !! eGFR(CKD-EPI 2020 >90 mL/min 60 - > 90 !! SODIUM 137 mmol/L 135 - 145 !! POTASSIUM 4.6 mmol/L 3.5 - 5.0 !! CHLORIDE 105 mmol/L 100 - 110 !! CARBON DIOXIDE 21 mmol/L 20 - 30 !! ANION GAP 11 4 - 16 !! CALCIUM 10.3 mg/dL 8.5 - 10.5 !! PROTEIN, TOTAL 7.8 g/dL 6.0 - 8.5 !! ALBUMIN 4.3 g/dL 3.2 - 5.0 !! ALP 144 U/L 40 - 150 !! ALT(SGPT) 37 U/L 7 - 52 !! AST(SGOT) 30 U/L 5 - 34 !! FIB-4 SCORE 0.92 Ref: <= 2.67 !! BILIRUBIN, TOTAL 0.4 mg/dL 0.2 - 1.2 !! CHOLESTEROL 171 mg/dL 0 - 200 !! TRIGLYCERIDE 55 mg/dL 0 - 150 !! HDL CHOLESTEROL 60 mg/dL Ref: >= 40 !! LDL 100 mg/dL 0 - 129 12/31/2023 10:06 BLOOD !! HEMOGLOBIN A1C 5.3 % 4.0 - 5.6 12/31/2023 10:06 BLOOD WBC 6.2 10*3/uL 4.5 - 11.0 RBC 5.13 10*6/uL 4.23 - 5.66 HGB 16.3 g/dl 12.8 - 17 HEMATOCRIT 47.6 % 39.2 - 50.4 MCV 92.8 fl 82 - 99 MCH 31.8 pg 26.2 - 32.6 MCHC 34.2 g/dl 30.8 - 35.1 RDW 11.8 L % 12.0 - 16.0 PLT 263 10*3/uL 140 - 360 MPV 9.9 fl 9.2 - 12.4 !! Indicates COMMENTS AVAILABLE...Refer to Interim Lab Report. Please call if you have any questions or concerns. Upcoming Appointments: 01/14/2024 10:30 LIT PHONE PACT CPP 6 Please don't hesitate to call if you have any questions or concerns, . Sincerely, NATE BOLANOS M.D [facility] [address] [place] [address] NATE BOLANOS [facility] Dec 31, 2023 09:32 AM PRIMARY CARE EVELIN Meng EVALUATION NOTE: LOCAL TITLE: Preventive Health Annual Review STANDARD TITLE: PRIMARY CARE ANNUAL EVALUATION NOTE DATE OF NOTE: DEC 31, 2023@09:32 ENTRY DATE: DEC 31, 2023@09:32:17 AUTHOR: BRENDA ANDREA COSIGNER: URGENCY: STATUS: COMPLETED Homelessness/Food Insecurity Screen: In the past 2 months, have you been living in stable housing that you own, rent, or stay in as part of a household? Yes - Living in stable housing. Are you worried or concerned that in the next 2 months you may NOT have stable housing that you own, rent, or stay in as part of a household? No - Not worried about housing near future The reports the following: Within the past 12 months, you worried whether your food would run out before you got money to buy more. Never true Within the past 12 months, the food you bought just didn't last and you didn't have money to get more. Never true Sexual Orientation: The patient thinks of their sexual orientation as: Straight or Heterosexual Depression Screening: Perform PHQ-2 A PHQ-2 screen was performed. The score was 0 which is a negative screen for depression. Over the past two weeks, how often have you been bothered by the following problems? 1. Little interest or pleasure in doing things Not at all 2. Feeling down, depressed, or hopeless Not at all PTSD Screening: PC-PTSD-5 A PTSD screening test (PC-PTSD-5) was negative (score=0). IN THE PAST MONTH, have you ever had any experience that was so frightening, horrible or traumatic. For example: A serious accident or fire a physical or sexual assault or abuse An earthquake or flood A war Seeing someone be killed or seriously injured Having a loved one through homicide or suicide 1. Have you ever experienced this kind of event? NO 2. Had nightmares about the event(s) or thought about the event(s) when you did not want to? Response not required due to responses to other questions. 3. Tried hard not to think about the event(s) or went out of your way to avoid situations that reminded you of the event(s)? Response not required due to responses to other questions. 4. Been constantly on guard, watchful, or easily startled? Response not required due to responses to other questions. 5. Nallen numb or detached from people, activities, or your surroundings? Response not required due to responses to other questions. 6. Nallen guilty or unable to stop blaming yourself or others for the event(s) or any problems the event(s) may have caused? Response not required due to responses to other questions. /garrick/ BRENDA ANDREA Health Centrifugal Operator Signed: 12/31/2023 09:34 [facility] Dec 31, 2023 09:09 AM PRIMARY CARE NOTE: LOCAL TITLE: Primary Care Clinic Note STANDARD TITLE: PRIMARY CARE NOTE DATE OF NOTE: DEC 31, 2023@09:09 ENTRY DATE: DEC 31, 2023@09:09:49 AUTHOR: NATE BOLANOS COSIGNER: URGENCY: STATUS: COMPLETED PRIMARY CARE TELEMEDICINE VISIT The patient gave me verbal consent for a telemedicine visit. e-911: Call [phone] to speak with an agent who can put you in touch with a recycling operator at the Patient's location. You must have the physical location (address) where the Patient is currently located. Verbal informed consent has been obtained. ENRICO HAYWARD [address] [place] [id number] [place] [id number] Chief complaint: Pt is a 48 year old who comes in for follow up of medical problems and was seen via CVT as noted below. HPI: 48 y/o male with h/o htn, hypothyroidism, shoulder surgery 01/14, umbilical hernia repair, seizure d/o with no recent seizures seen via cvt for pc f/u. last pc visit was f2f visit 03/[address] campbell. in the interim he has had shoulder surgery and done PT. following cpp for htn management. mailed back fit test which was neg. varicose veins - right leg painful and sore, wearing compression stockings. [facility] Vascular surgery clinic. eval. left leg is not an issue. REVIEW OF SYSTEMS: Cardiovascular: No chest pain, palpitations, orthopnea or dyspnea on exertion. Respiratory: No cough, wheezing or dyspnea. Neurological: No seizures, tremors or headaches Psychiatric: No suicidal or homicidal ideation. No depression, anxiety or insomnia. 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 shoulder surgery 01/14 PMH: Code Description M54.50 Low back pain ([facility] [id number]) I83.12 Varicose veins ([facility] [id number]) M25.561 Pain of right knee joint ([facility] [id number]) I10. Essential hypertension ([facility] [id number]) G40.909 Epilepsy ([facility] [id number]) I48.91 AF- Atrial Fibrillation ([facility] [id number]) I42.9 Cardiomyopathy ([facility] [id number]) I34.9 Mitral valve regurgitation ([facility] [id number]) G47.33 Obstructive sleep apnea syndrome ([facility] [id number]) K21.9 GERD - Gastro-Esophageal Reflux Disease ([facility] [id number]) F33.0 Depressive disorder ([facility] [id number]) A63.0 Genital warts ([facility] [id number]) V17.0 Family History of Psychiatric Condition (ICD-9-CM V17.0) V18.0 Family History of Diabetes Mellitus (ICD-9-CM V18.0) Service Connection: DS - Disabilities Eligibility: SC LESS THAN 50% VERIFIED Total S/C %: 0 HYPOTHYROIDISM 0% S/C SKIN CONDITION 0% S/C Allergies: Patient has answered NKA The following VA and Non-VA meds were reconciled with patient: Active Outpatient Medications (excluding Supplies): Active Outpatient [...] 100MG BY MOUTH ACTIVE TWICE A DAY 14 Total Medications On examination: Date Vital Measurement Qualifiers 12/31/2023 09:57 BP 124/72 12/31/2023 09:28 Temp F (C) 97.1 (36.2) Pulse 86 Ht in (cm) 70 (177.80) Wt lbs (kg)[BMI] 264.6 (120.02)[38*] Pain 0 POx (L/Min)(%) 99 Physical exam is completed with the assistance of telehealth clinical cath lab radiology technician: Brenda Andrea today Gen: pt is alert and oriented. No apparent distress. CVS: regular rate and rhythm normal S1S2 no m/r/g Pulm: clear to auscultation bilaterally EXT: no edema or cyanosis noted bilaterally, +right sided varicose veins on thigh and matamoros Assessment/plan: r. varicose veins -wrj vascular surgery eval obesity with recent weight gain -move program referral HTN hctz 12.5mg qd lisinopril recently inc from 5 mg to 10 mg in pharmacy clinic. he is taking in pm with good result metoprolol diltiazem at goal in clinic today seizure disorder -no recent seizures -recheck dilantin and lamotrigine levels -[id number] qam -lamotrigine 400mg qhs -phenytoin (Dilantin brand) 100mg qam -phenytoin 200mg qpm ED sildenafil 100mg prn. has not used recently paroxysmal afib -diltiazem 360mg 24H daily -metoprolol succinate 50mg SA daily hypothyroidism levothyroxine 250mcg qd - recently inc from 225 qd -check TSH/cascade 1. adjust accordingly rtc 12 m IM - Immunizations ADMINISTERED Immunization Series Date Facility Reaction Info COVID-19 (MODERNA), MRNA, LNP-S,* 3 10/13/2021 [facility]* <C> PNEUMOCOCCAL POLYSACCHARIDE PPV23 11/04/2020 [facility]* TD(ADULT) UNSPECIFIED FORMULATION No Site TDAP 09/25/2018 [facility]* <C> CONTRAINDICATED No data available REFUSED ======= No data available <C> See the Detailed Immunizations Health Summary Component[DIM] for Comments * Value is truncated; see the Detailed Immunizations Health Summary Component [DIM] for complete text Toxic Exposure Screening: The /caregiver was asked if they believe the [place] experienced any toxic exposure(s), such as Airborne Hazards and Open Burn Pit, [place] War related exposures, Agent [place], Radiation, contaminated water at [place] or other such exposures, while serving in the [employer]. 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 The [place]/caregiver was informed that we will continue to ask this screening question every 5 years. They can contact their provider/healthcare team if they have concerns about exposures and would like to be screened sooner. Printed information was offered and provided if desired Medication Reconciliation: Perform Medication Reconciliation JLV Link Data on this list may not be complete. Please check JLV. Allergies/ADRs (Tool #5) FACILITY ALLERGY/ADR -------- No Remote Allergy/ADR Data available for this patient ERAN BOWEN [facility] No Known Allergies Med Recon [facility] (Tool #1) INCLUDED IN THIS LIST: Alphabetical list of active outpatient prescriptions dispensed from this OR (local) and dispensed from another VA or DoD facility (remote) as well as inpatient orders (local pending and active), local clinic medications, locally documented non-VA medications, and local prescriptions that have or been discontinued in the past 90 days. Non-VA Meds Last Documented On: Jul 04, 2023 NOTE The display of VA prescriptions dispensed from another VA or DoD facility (remote) is limited to active outpatient prescription entries matched to National Drug File at the originating site and may not include some items such as investigational drugs, compounds, etc. NOT INCLUDED IN THIS LIST: Medications self-entered by the patient into personal health records (i.e. [employer] [place]) are NOT included in this list. Non-VA medications documented outside this OR, remote inpatient orders (regardless of status) and remote clinic medications are NOT included in this list. The patient and provider must always discuss medications the patient is taking, regardless of where the medication was dispensed or obtained. OUTPT ASPIRIN 325MG TAB (Status = Discontinued) TAKE ONE TABLET BY MOUTH EVERY DAY TO PREVENT STROKE/HEART ATTACK OR FOR PAIN/INFLAMMATION/SWELLING Rx# [id number] Last Released: 12/10/23 Qty/Days Supply: 100/90 Rx Expiration Date: 01/12/24 Refills Remainin OUTPT ASPIRIN 325MG TAB (Status = Active/Suspended) TAKE ONE TABLET BY MOUTH EVERY DAY TO PREVENT STROKE/HEART ATTACK OR FOR PAIN/INFLAMMATION/SWELLING Rx# [id number] Last Released: Qt Supply: 100 Rx Expiration Date: 12/31/24 Refills Remainin OUTPT CHLORHEXIDINE GLUCONATE 0.12% MOUTHWASH (Status = Active) RINSE 1 CAPFUL (15ML) BY MOUTH TWICE A DAY Rx# [id number] Last Released: 10/03/23 Qty/Days Supply: 480/90 Rx Expiration Date: 05/03/24 Refills Remainin Indication: PERIDONTAL DISEASE OUTPT CHOLECALCIF 25MCG (D3-1,000UNIT) TAB (Status = ) TAKE ONE TABLET BY MOUTH ONCE DAILY Rx# [id number] Last Released: 10/11/23 Qty/Days Supply: 100/90 Rx Expiration Date: 12/16/23 Refills Remainin OUTPT DILTIAZEM (EQV-TIAZAC) 360MG 24HR CAP (Status = Discontinued) TAKE ONE CAPSULE BY MOUTH EVERY DAY FOR HEART RATE/BLOOD PRESSURE Rx# [id number] Last Released: 12/10/23 Qty/Days Supply: 90 Rx Expiration Date: 05/02/24 Refills Remainin OUTPT DILTIAZEM (EQV-TIAZAC) 360MG 24HR CAP (Status = Active/Suspended) TAKE ONE CAPSULE BY MOUTH EVERY DAY FOR HEART RATE/BLOOD PRESSURE Rx# [id number] Last Released: Qt/Days Supply: 90 Rx Expiration Date: 12/31/24 Refills Remainin Non-VA DOXYCYCLINE HYCLATE 100MG TAB TAKE ONE TABLET BY MOUTH TWICE A DAY Indication: FOR CELLULITIS OUTPT FAMOTIDINE 20MG TAB (Status = Discontinued) TAKE ONE TABLET BY MOUTH TWICE A DAY FOR STOMACH ACID Rx# [id number] Last Released: 11/22/23 Qty/Days Supply: 180/90 Rx Expiration Date: 05/02/24 Refills Remainin OUTPT FAMOTIDINE 20MG TAB (Status = Active/Suspended) TAKE ONE TABLET BY MOUTH TWICE A DAY FOR STOMACH ACID Rx# [id number] Last Released: Qty/Days Supply: Rx Expiration Date: 12/31/24 Refills Remainin OUTPT HYDROCHLOROTHIAZIDE 12.5MG TAB (Status = Discontinued) TAKE ONE TABLET BY MOUTH EVERY MORNING TO REMOVE FLUID/CONTROL BLOOD PRESSURE Rx# [id number] Last Released: 12/10/23 Qty/Days Supply: Rx Expiration Date: 05/02/24 Refills Remainin OUTPT HYDROCHLOROTHIAZIDE 12.5MG TAB (Status = Active/Suspended) TAKE ONE TABLET BY MOUTH EVERY MORNING TO REMOVE FLUID/CONTROL BLOOD PRESSURE Rx# [id number] Last Released: Qty/Days Supply: Rx Expiration Date: 12/31/24 Refills Remainin OUTPT LAMOTRIGINE 100MG TAB (Status = Active) TAKE THREE TABLETS BY MOUTH EVERY MORNING AND TAKE FOUR TABLETS EVERY EVENING ### Rx# [id number] Last Released: 12/04/23 Qty/Days Supply: Rx Expiration Date: 05/02/24 Refills Remainin OUTPT LAMOTRIGINE 100MG TAB (Status = Pending) TAKE THREE TABLETS BY MOUTH EVERY MORNING AND TAKE FOUR TABLETS EVERY EVENING ### Renewed from Rx# [id number] Qty/Days Supply: Login Date: 12/31/23 Refills Ordered: 3 OUTPT LEVOTHYROXINE NA (SYNTHROID) 112MCG TAB (Status = Discontinued) TAKE TWO TABLETS BY MOUTH EVERY MORNING FOR THYROID HALF-HOUR BEFORE FOOD INCREASE IN DOSE Rx# [id number] Last Released: 10/04/23 Qty/Days Supply: Rx Expiration Date: 06/04/24 Refills Remainin Indication: FOR HYPOTHYROIDISM OUTPT LEVOTHYROXINE NA (SYNTHROID) 125MCG TAB (Status = Active) TAKE TWO TABLETS BY MOUTH ONCE EVERY MORNING FOR HYPOTHYROIDISM HALF-HOUR BEFORE FOOD INCREASE IN DOSE Rx# [id number] Last Released: 10/30/23 Qty/Days Supply: Rx Expiration Date: 10/26/24 Refills Remainin Indication: FOR HYPOTHYROIDISM OUTPT LISINOPRIL 10MG TAB (Status = Active) TAKE ONE TABLET BY MOUTH ONCE EVERY EVENING FOR HIGH BLOOD PRESSURE Rx# [id number] Last Released: 12/25/23 Qty/Days Supply: Rx Expiration Date: 12/24/24 Refills Remainin Indication: FOR HIGH BLOOD PRESSURE OUTPT LISINOPRIL 5MG TAB (Status = Discontinued) TAKE ONE TABLET BY MOUTH EVERY DAY TO CONTROL BLOOD PRESSURE Rx# [id number] Last Released: 11/22/23 Qty/Days Supply: Rx Expiration Date: 05/02/24 Refills Remainin OUTPT MELATONIN 5MG CAP/TAB (Status = Discontinued) TAKE ONE CAP/TAB BY MOUTH EVERY DAY FOR SLEEP Rx# [id number] Last Released: 12/04/23 Qty/Days Supply: Rx Expiration Date: 05/02/24 Refills Remainin OUTPT MELATONIN 5MG CAP/TAB (Status = Active/Suspended) TAKE ONE CAP/TAB BY MOUTH EVERY DAY FOR SLEEP Rx# [id number] Last Released: Supply: Rx Expiration Date: 12/31/24 Refills Remainin OUTPT PHENYTOIN NA (DILANTIN) 100MG SA CAP (Status = Active) TAKE ONE CAPSULE BY MOUTH EVERY MORNING AND TAKE TWO CAPSULES EVERY EVENING TO PREVENT SEIZURES NEEDS DILANTIN BRAND Rx# [id number] Last Released: 10/17/23 Qty/Days Supply: Rx Expiration Date: 01/12/24 Refills Remainin OUTPT SILDENAFIL CITRATE 100MG TAB (Status = Active) TAKE ONE TABLET BY MOUTH NEEDED MAX USE ONCE IN 24 HOUR PERIOD Rx# [id number] Last Released: 05/04/23 Qty/Days Supply: Rx Expiration Date: 05/02/24 Refills Remainin OUTPT TRAZODONE HCL 50MG TAB (Status = Active) TAKE ONE TABLET BY MOUTH AT BEDTIME FOR INSOMNIA MAY TAKE ONE ADDITIONAL TABLET NEEDED Rx# [id number] Last Released: 12/04/23 Qty/Days Supply: Rx Expiration Date: 05/02/24 Refills Remainin Indication: FOR INSOMNIA OUTPT TRIAMCINOLONE ACETONIDE 0.1% OINT (Status = Active) APPLY SMALL AMOUNT TOPICALLY TWICE DAILY NEEDED FOR DERMATITIS Rx# [id number] Last Released: 09/11/23 Qty/Days Supply: Rx Expiration Date: 05/02/24 Refills Remainin Indication: FOR DERMATITIS SUPPLIES Comments: The patient's Essential Medication List for Review was used for reconciliation to address additions, deletions, and changes as reported by the patient/caregiver. The patient/caregiver indicates that medications are being taken as documented as described above. Was medication education provided for new medications or changes to medications? (including medication name, dose, route, reason for use, and potential side effects). Yes. Verbal education was provided to patient/caregiver and patient/caregiver verbalized understanding. /garrick/ NATE BOLANOS M.D Signed: 12/31/2023 10:32 NATE BOLANOS [facility] Dec 31, 2023 07:15 AM TELEHEALTH NOTE: LOCAL TITLE: Telehealth Centrifugal Operator Note STANDARD TITLE: TELEHEALTH NOTE DATE OF NOTE: DEC 31, 2023@07:15 ENTRY DATE: DEC 31, 2023@07:15:10 AUTHOR: BRENDA ANDREA COSIGNER: URGENCY: STATUS: COMPLETED The patient was identified using the following patient identifiers: Full Name, Date of , Full social security number They were informed verbally that they were here to be seen via telehealth by a provider at a remote site. It was explained to them that this was entirely voluntary, and they always have the option to drive to [place] to see the provider in person. They understand if they decline to participate via telehealth, it will in no way adversely impact their continued access to health care services. They consented verbally to being seen today via telehealth by a remote provider and understood that the visit could be terminated at any time, if that was their wish. Clinical Video on Demand (CVOD) Disclosure & Verbal Informed Consent: Visit was conducted by Clinical Video Telehealth (CVT). Exam camera was operated by the CVOD provider. Verbal informed consent was obtained at time of the CVOD visit, after providing the patient with a full explanation of CVT, alternatives for obtaining care through an in-person visit at the nearest [facility] clinical site offering the requested service, and the patient's right of refusal, at any time, for any Telehealth. Emergency contact information was obtained as follows: Current Location: [facility] Current Address: [address] [place] [address] in [place]: [place] [facility] Contact Name: Leonor Andrea Emergency Relationship: Emergency Number: [phone] /es/ BRENDA ANDREA Health Centrifugal Operator Signed: 12/31/2023 09:36 BRENDA ANDREA [facility]
--- OUTSIDE RECORDS SUMMARY | 2024-04-14 14:01 | XMS_ITS | Encounter Summary ---
Author Name [facility] [place] Organization [facility] [place] Address [address] [place] [address] Care Team Providers Care Supervisor Roving Name Role Phone LUIS MIGUELNATE Primary Care Provider Unavailabl e Selected Encounter This section includes the information on record at [place] for the Encounter. Date/Time Encounter Type Encounter Description Reason Pro vider Source Jun 20, 2023 02:20 PM Outpatient Encounter ADMIN PAT ACTIVTIES (SANDEEPNONCT) IHE Encounter Template Text not used by [place] Plan of Treatment: Future Appointments (+ 6 months) and Future Tests (+/- 45 days) The Plan of Treatment section includes future care activities for the patient from all [place] treatmentfacilities. This section includes future appointments and future orders which are active, pending or scheduled. Future Appointments This section includes appointments that were scheduled to occur 6 months from the date of the Encounter, up to a maximum of 20 appointments. The data comes from all [place] treatment facilities. Appointment Date/Time Appointment Type Appointme nt Facility Name Jul 04, 2023 03:00 PM AMBULATORY - MEDICINE [facility] Oct 24, 2023 01:15 PM AMBULATORY - NONE [facility] Active, Pending, and Scheduled Orders This [...] Order THYROID TESTING CASCADE BLOOD(GOLD) SERUM SP [facility] Lab Results: +/- 30 days of the encounter This section includes the Chemistry and Hematology Lab Results on record with [place] for the patient. Radiology Reports and Pathology Reports are provided separately, in subsequent sections. Lab Results This section contains the Chemistry/Hematology Results that were resulted 30 days before or 30 daysafter the date of the Encounter. Date/Time Source Result Type Result - Unit Interpretation Reference Range Comment May 30, 2023 11:35 AM [facility] LIVER PROFILE Specimen Type: PLASMA Comment: Tests performed on [facility] [employer] (405) SN:[id number] Ordering Provider: GRETEL NIEVES JR Report Released Date/Time: May 24, 2023 03:03 PM Reporting Lab: [facility] [address] [facility] [address] Performing Lab: [facility] [address] [facility] [address] PROTEIN, TOTAL 7.0 g/dL 6.0-8.5 ALBUMIN 3.7 g/dL 3.2-5.0 BILIRUBIN, TOTAL 0.4 mg/dL 0.2-1.2 ALKALINE PHOSPHATASE 116 U/L 40-150 ALT(SGPT) 40 U/L 7-52 AST(SGOT) 38 U/L H 5-34 FIB-4 SCORE 1.30 {index} <2.67 May 30, 2023 11:35 AM [facility] LIPOPROTEIN CHOLESTEROL FRACT. PANEL Specimen Type: PLASMA Comment: Tests performed on [facility] (405) SN:[id number] Ordering Provider: GRETEL NIEVES JR Report Released Date/Time: May 24, 2023 03:03 PM Reporting Lab: [facility] [address] [facility] [address] Performing Lab: [facility] [address] [facility] [address] CHOLESTEROL 173 mg/dL 0-199 TRIGLYCERIDE 44 mg/dL 0-149 HDL CHOLESTEROL 68 mg/dL >40 LDL CHOLESTEROL (CALC) 96 mg/dL 0-129 May 30, 2023 11:35 AM [facility] CBC NO DIFF Specimen Type: BLOOD No comment entered. Ordering Provider: GRETEL NIEVES JR Report Released Date/Time: May 24, 2023 03:03 PM Reporting [facility] [address] [facility] [address] Performing Lab: [facility] [address] [facility] [address] WBC 4.8 10*3/uL 4.5-11.0 RBC 4.56 10*6/uL 4.23-5.66 HGB 14.9 g/dL 12.8-17 HEMATOCRIT 43.6 39.2-50.4 MCV 95.6 fL 82-99 MCH 32.7 pg H 26.2-32.6 MCHC 34.2 g/dL 30.8-35.1 PLT 221 10*3/uL 140-360 MPV 9.3 fL 9.2-12.4 RDW 13.1 12.0-16.0 May 30, 2023 11:35 AM [facility] P4 GLU,BUN,CREAT,LYTES,CA Specimen Type: PLASMA Comment: Tests performed on [employer] (405) SN:[id number] Ordering Provider: GRETEL NIEVES JR Report Released Date/Time: May 24, 2023 03:03 PM Reporting Lab: [facility] [address] [facility] [address] Performing Lab: [facility] [address] [facility] [address] UREA NITROGEN 25 mg/dL 7-25 SODIUM 135 mmol/L 135-145 POTASSIUM 4.5 mmol/L 3.5-5.0 CHLORIDE 105 mmol/L 100-110 CARBON DIOXIDE 21 mmol/L 20-30 ANION GAP 9 mmol/L 4-16 GLUCOSE 90 mg/dL 65-100 CREATININE 0.86 mg/dL 0.5-1.5 CALCIUM 9.0 mg/dL 8.5-10.5 eGFR(CKD-EPI 2020) >90.0 mL/min >60 May 30, 2023 11:35 AM [facility] VITAMIN B-12 Specimen Type: SERUM Comment: Tests performed on [facility] (405) SN:[id number] Ordering Provider: GRETEL NIEVES JR Report Released Date/Time: May 24, 2023 03:03 PM Reporting Lab: [facility] [address] [facility] [address] Performing Lab: [facility] [address] [facility] [address] VITAMIN B-12 905 pg/mL H 200-900 May 30, 2023 11:35 AM [facility] GLYCOHEMOGLOBIN (A1C ONLY) Specimen Type: BLOOD Comment: Tests performed on [employer] (405) SN:[id number] Values obtained from A1C measurements can vary. For typical A1C assays, a reported value of 7.0 could actually be between 6.72 and 7.28 if measured by a reference method. A reported value of 9.0 could actually be between 8.73 and 9.27. Reference [email or web address].ng [email or web address]/CAPdat a.[email or web address] Ordering Provider: GRETEL NIEVES JR Report Released Date/Time: May 24, 2023 03:03 PM Reporting Lab: [facility] [address] [facility] [address] Performing Lab: [facility] [address] [facility] [address] HEMOGLOBIN A1C 5.0 4.0-5.6 May 30, 2023 11:35 AM [facility] THYROID TESTING CASCADE Specimen Type: SERUM Comment: Tests performed on [employer] (405) [id number] Ordering Provider: GRETEL NIEVES JR Report Released Date/Time: May 24, 2023 03:03 PM Reporting Lab: [facility] [address] [facility] [address] Performing Lab: [place] [facility] [address] [facility] [address] T4,FREE 0.9 ng/dL 0.6-1.6 TSH 7.52 u[IU]/mL H 0.35-5.00 May 30, 2023 11:35 AM [facility] VIT D 25-OH(J) Specimen Type: SERUM Comment: Tests performed on [employer] (405) SN:[id number] Ordering Provider: GRETEL NIEVES JR Report Released Date/Time: May 24, 2023 03:03 PM Reporting Lab: [facility] [place] [address] [facility] [address] Performing Lab: [facility] [address] [facility] [address] VIT D 25-OH(WRJ) 39.4 ng/mL 20-50 Advance Directives: All historical and current Section [...] the Encounter. Date/Time Encounter Note(s) Provider Source Jun 20, 2023 02:20 PM ADMINISTRATIVE NOT E: LOCAL TITLE: CCC: SCHEDULING ADMINISTRATION STANDARD TITLE: ADMINISTRATIVE NOTE DATE OF NOTE: JUN 20, 2023@14:20:36 ENTRY DATE: JUN 20, 2023@14:20:36 AUTHOR: LEÓN SAWYER EXP COSIGNER: URGENCY: STATUS: COMPLETED CCC: SCHEDULING ADMINISTRATION Has ADDENDA Patient Demographics Patient Name: BISMARK HAYWARD SSN: [id number] Patient Primary [address]: [address] [place] [address] <>[place], [place] [address] Patient Primary Phone: [phone] Patient : 1975 Patient Age: 47 Caller/Recipient Relation to Patient: Self Call Back Number: [phone] Administrative Administrative Note Reason: Other Administrative Note Comments: WAS TRIAGED FOR A CRACKED FINGER NAIL. NO APPOINTMENT WAS AVAILABLE AND HE WILL GO TO . HIS CONTACT NUMBER IS [phone]. /garrick/ LEÓN HARDENN1 SHARON AMATO Signed: 06/20/2023 14:20 Receipt Acknowledged By: 06/20/2023 14:29 /es/ CARROLL PETTY LPN 06/20/2023 15:28 /es/ IGNACIO ROSENBERG RN 06/20/2023 ADDENDUM STATUS: COMPLETED . Medical Asst advised PCP within 24 hrs. If no appointment he will go to [facility] for evaluation. Transferred call to [facility] for possible scheduling. Will alert PACT. Patient was instructed to go to ED if no appt was available /garrick/ CARROLL PETTY LPN Signed: 06/20/2023 14:28 06/25/2023 ADDENDUM STATUS: COMPLETED attempts to contact vet to check status unsuccessful. /ayla ROSENBERG RN Signed: 06/25/2023 08:25 06/25/2023 ADDENDUM STATUS: COMPLETED record of visit requested /ayla ROSENBERG RN Signed: 06/25/2023 08:46 LEÓN SAWYER [facility]
--- OUTSIDE RECORDS SUMMARY | 2024-04-14 14:01 | XMS_ITS | Encounter Summary ---
Author Name [facility] [place] [facility] [place] Address [address] [place] [address] Care Team Providers Care Java Performance Engineer Name Role Phone LUIS MIGUELNATE Primary Care Provider Unavailabl e Selected Encounter This section includes the information on record at [place] for the Encounter. Date/Time Encounter Type Encounter Description Reason Pro vider Source Jun 25, 2023 02:05 PM Outpatient Encounter ADMIN PAT ACTIVTIES (SANDEEPNONCT) IHE Encounter Template Text not used by [place] Plan of Treatment: Future Appointments (+ 6 months) and Future Tests (+/- 45 days) The Plan of Treatment section includes future care activities for the patient from all [place] treatmentfacilities. This section includes future appointments and future orders which are active, pending or scheduled. Future Appointments This section includes appointments that were scheduled to occur 6 months from the date of the Encounter, up to a maximum of 20 appointments. The data comes from all [place] treatment facilities. Appointment Date/Time Appointment Type Appointme nt Facility Name Jul 04, 2023 03:00 PM AMBULATORY - MEDICINE [facility] Oct 24, 2023 01:15 PM AMBULATORY - NONE [facility] Dec 24, 2023 11:30 AM AMBULATORY - MEDICINE AZALEA Cruz [facility] Active, Pending, and Scheduled Orders This section includes a listing of several types of active, pending, and scheduled orders, including clinic medications orders, diagnostic test orders, procedure orders and consult orders; where the start date of the order is 45 days before the date of the Encounter or 45 days after the date of theEncounter. The data comes from all [place] treatment facilities. Test Date/Time Test Type Test Details Facility Name Jul 09, 2023 12:00 AM Laboratory - Chemi stry Order THYROID TESTING CASCADE BLOOD(GOLD) SERUM SP [facility] Lab Results: +/- 30 days of the encounter This section includes the Chemistry and Hematology Lab Results on record with [place] for the patient. Radiology Reports and Pathology Reports are provided separately, in subsequent sections. Lab Results This section contains the Chemistry/Hematology Results that were resulted 30 days before or 30 daysafter the date of the Encounter. Date/Time Source Result Type Result - Unit Interpretation Reference Range Comment May 30, 2023 11:35 AM [facility] LIVER PROFILE Specimen Type: PLASMA Comment: Tests performed on [employer] (405) SN:[id number] Ordering Provider: GRETEL NIEVES JR Report Released Date/Time: May 24, 2023 03:03 PM Reporting Lab: [facility] [address] [facility] [address] Performing Lab: [facility] [address] [facility] [address] PROTEIN, TOTAL 7.0 g/dL 6.0-8.5 ALBUMIN 3.7 g/dL 3.2-5.0 BILIRUBIN, TOTAL 0.4 mg/dL 0.2-1.2 ALKALINE PHOSPHATASE 116 U/L 40-150 ALT(SGPT) 40 U/L 7-52 AST(SGOT) 38 U/L H 5-34 FIB-4 SCORE 1.30 {index} <2.67 May 30, 2023 11:35 AM [facility] LIPOPROTEIN CHOLESTEROL FRACT. PANEL Specimen Type: PLASMA Comment: Tests performed on [employer] (405) SN:[id number] Ordering Provider: GRETEL NIEVES JR Report Released Date/Time: May 24, 2023 03:03 PM Reporting Lab: [facility] [address] [facility] [address] Performing Lab: [facility] [address] [facility] [address] CHOLESTEROL 173 mg/dL 0-199 TRIGLYCERIDE 44 mg/dL 0-149 HDL CHOLESTEROL 68 mg/dL >40 LDL CHOLESTEROL (CALC) 96 mg/dL 0-129 May 30, 2023 11:35 AM [facility] CBC NO DIFF Specimen Type: BLOOD No comment entered. Ordering Provider: GRETEL NIEVES JR Report Released Date/Time: May 24, 2023 03:03 PM Reporting Lab: [facility] [address] [facility] Performing Lab: [facility] [address] [facility] WBC 4.8 10*3/uL 4.5-11.0 RBC 4.56 10*6/uL 4.23-5.66 HGB 14.9 g/dL 12.8-17 HEMATOCRIT 43.6 39.2-50.4 MCV 95.6 fL 82-99 MCH 32.7 pg H 26.2-32.6 MCHC 34.2 g/dL 30.8-35.1 PLT 221 10*3/uL 140-360 MPV 9.3 fL 9.2-12.4 RDW 13.1 12.0-16.0 May 30, 2023 11:35 AM [facility] P4 GLU,BUN,CREAT,LYTES,CA Specimen Type: PLASMA Comment: Tests performed on [employer] (405) SN:[id number] Ordering Provider: GRETEL NIEVES JR Report Released Date/Time: May 24, 2023 03:03 PM Reporting Lab: [facility] [address] [facility] Performing Lab: [facility] [address] [facility] UREA NITROGEN 25 mg/dL 7-25 SODIUM 135 mmol/L 135-145 POTASSIUM 4.5 mmol/L 3.5-5.0 CHLORIDE 105 mmol/L 100-110 CARBON DIOXIDE 21 mmol/L 20-30 ANION GAP 9 mmol/L 4-16 GLUCOSE 90 mg/dL 65-100 CREATININE 0.86 mg/dL 0.5-1.5 CALCIUM 9.0 mg/dL 8.5-10.5 eGFR(CKD-EPI 2020) >90.0 mL/min >60 May 30, 2023 11:35 AM [facility] VITAMIN B-12 Specimen Type: SERUM Comment: Tests performed on [employer] (405) [id number] Ordering Provider: GRETEL NIEVES JR Report Released Date/Time: May 24, 2023 03:03 PM Reporting Lab: [facility] [address] [facility] [address] Performing Lab: [facility] [address] [facility] [address] VITAMIN B-12 905 pg/mL H 200-900 May 30, 2023 11:35 AM [facility] GLYCOHEMOGLOBIN (A1C ONLY) Specimen Type: BLOOD Comment: Tests performed on [facility] [employer] (405) SN:[id number] Values obtained from A1C measurements can vary. For typical A1C assays, a reported value of 7.0 could actually be between 6.72 and 7.28 if measured by a reference method. A reported value of 9.0 could actually be between 8.73 and 9.27. Reference [email or web address].ng [email or web address]/CAPdat [email or web address] Ordering Provider: RGETEL NIEVES JR Report Released Date/Time: May 24, 2023 03:03 PM Reporting Lab: [facility] [address] [facility] [address] Performing Lab: [facility] [address] [facility] [address] HEMOGLOBIN A1C 5.0 4.0-5.6 May 30, 2023 11:35 AM [facility] THYROID TESTING CASCADE Specimen Type: SERUM Comment: Tests performed on [employer] (405) SN:[id number] Ordering Provider: GRETEL NIEVES JR Report Released Date/Time: May 24, 2023 03:03 PM Reporting Lab: [facility] [address] [facility] [address] Performing Lab: [facility] [address] [facility] [address] T4,FREE 0.9 ng/dL 0.6-1.6 TSH 7.52 u[IU]/mL H 0.35-5.00 May 30, 2023 11:35 AM [facility] VIT D 25-OH(WRJ) Specimen Type: SERUM Comment: Tests performed on [employer] (405) SN:[id number] Ordering Provider: GRETEL NIEVES JR Report Released Date/Time: May 24, 2023 03:03 PM Reporting Lab: [facility] [address] [facility] [address] [facility] Lab: [facility] [address] [facility] [address] VIT D 25-OH(WRJ) 39.4 ng/mL 20-50 Advance [...] this document. The data comes from all [place] facilities. Date Advance Directives Provider Source May 18, 2021 ADVANCE DIRECTIVE RICHARD DAN [facility] Encounter Notes: All associated encounter notes This section contains the clinical notes associated to the Encounter. Date/Time Encounter Note(s) Provider Source Jun 25, 2023 02:05 PM ADMINISTRATIVE NOT E: LOCAL TITLE: CCC: SCHEDULING ADMINISTRATION STANDARD TITLE: ADMINISTRATIVE NOTE DATE OF NOTE: JUN 25, 2023@14:05:58 ENTRY DATE: JUN 25, 2023@14:05:58 AUTHOR: DEBI VILLEGAS EXP COSIGNER: URGENCY: STATUS: COMPLETED CCC: SCHEDULING ADMINISTRATION Has ADDENDA Patient Demographics Patient Name: BISMARK HAYWARD SSN: [id number] Patient Primary Address: [address] [place] [address] <>[place] [address] Patient Primary Phone: [phone] Patient : 1975 Patient Age: 47 Caller/Recipient Relation to Patient: Self Administrative Administrative Note Reason: Other Administrative Note Comments: Pt returned call. Please call him back now as he is able to take a call. No notes were in there for me to see who called him. Thank you. /garrick/ DEBI WEISS 1 [facility] Signed: 06/25/2023 14:06 Receipt Acknowledged By: 06/26/2023 11:40 /es/ CARROLL PETTY LPN 06/26/2023 16:08 /es/ IGNACIO ROSENBERG RN 06/26/2023 ADDENDUM STATUS: COMPLETED NOte is available in CPRS from caller that left a message /es/ CARROLL PETTY LPN Signed: 06/26/2023 11:40 06/26/2023 ADDENDUM STATUS: COMPLETED attempting to contact vet at above number- not a working number- tried other numbers in chart- unable to contact vet. /garrick/ IGNACIO ROSENBERG RN Signed: 06/26/2023 16:08 DEBI VILLEGAS T [facility]
--- OUTSIDE RECORDS SUMMARY | 2024-04-14 14:01 | XMS_ITS | Encounter Summary ---
Author Name [facility] [place] Address [address] [facility], [place] [address] Care Team Providers Care Traffic Reporter Name Role Phone NATE BOLANOS Primary Care Provider Unavailabl e Selected Encounter This section includes the information on record at [place] for the Encounter. Date/Time Encounter Type Encounter Description Reason Provider Source Jun 20, 2023 02:17 PM Outpatient Encounter TELEPHONE TRIAGE ALVAREZ DIALLO Encounter Template Text not used by [place] [...] PM AMBULATORY - MEDICINE AZALEA Cruz BOWEN [facility] Oct 24, 2023 01:15 PM AMBULATORY - NONE [facility] Active, Pending, and Scheduled Orders This [...] Order THYROID TESTING CASCADE BLOOD(GOLD) SERUM SP [facility] Lab Results: +/- 30 days of the encounter This section includes the Chemistry and Hematology Lab Results on record with [place] for the patient. Radiology Reports and Pathology Reports are provided separately, in subsequent sections. Lab Results This section contains the Chemistry/Hematology Results that were resulted 30 days before or 30 daysafter the date of the Encounter. Date/Time Source Result Type Result - Unit Interpretation Reference Range Comment May 30, 2023 11:[address] [facility] CBC NO DIFF Specimen Type: BLOOD No comment entered. Ordering Provider: GRETEL NIEVES JR Report Released Date/Time: May 24, 2023 03:03 PM Reporting Lab: [facility] [address] [address] Performing Lab: [facility] [address] [address] WBC 4.8 10*3/uL 4.5-11.0 RBC 4.56 10*6/uL 4.23-5.66 HGB 14.9 g/dL 12.8-17 HEMATOCRIT 43.6 39.2-50.4 MCV 95.6 fL 82-99 MCH 32.7 pg H 26.2-32.6 MCHC 34.2 g/dL 30.8-35.1 PLT 221 10*3/uL 140-360 MPV 9.3 fL 9.2-12.4 RDW 13.1 12.0-16.0 May 30, 2023 11:[address] [facility] P4 GLU,BUN,CREAT,LYTES,[place] Specimen Type: PLASMA Comment: Tests performed on Tubett (405) SN:[id number] Ordering Provider: GRETEL NIEVES JR Report Released Date/Time: May 24, 2023 03:03 PM Reporting Lab: [facility] [address] [address] Performing Lab: [facility] [address] [address] UREA NITROGEN 25 mg/dL 7-25 SODIUM 135 mmol/L 135-145 POTASSIUM 4.5 mmol/L 3.5-5.0 CHLORIDE 105 mmol/L 100-110 CARBON DIOXIDE 21 mmol/L 20-30 ANION GAP 9 mmol/L 4-16 GLUCOSE 90 mg/dL 65-100 CREATININE 0.86 mg/dL 0.5-1.5 CALCIUM 9.0 mg/dL 8.5-10.5 eGFR(CKD-EPI 2020) >90.0 mL/min >60 May 30, 2023 11:[address] [facility] VITAMIN B-12 Specimen Type: SERUM Comment: Tests performed on [employer] (405) [id number] Ordering Provider: GRETEL NIEVES JR Report Released Date/Time: May 24, 2023 03:03 PM Reporting Lab: [facility] [address] [address] Performing Lab: [facility] [address] [facility] [address] VITAMIN B-12 905 pg/mL H 200-900 May 30, 2023 11:[address] [facility] GLYCOHEMOGLOBIN (A1C ONLY) Specimen Type: BLOOD Comment: Tests performed on [employer] (405) SN:[id number] Values obtained from A1C measurements can vary. For typical A1C assays, a reported value of 7.0 could actually be between 6.72 and 7.28 if measured by a reference method. A reported value of 9.0 could actually be between 8.73 and 9.27. Reference http://www.ng [email or web address]/CAPdat a.asp Ordering Provider: GRETEL NIEVES JR Report Released Date/Time: May 24, 2023 03:03 PM Reporting Lab: [facility] [address] [address] Performing Lab: [facility] [address] [facility] [address] HEMOGLOBIN A1C 5.0 4.0-5.6 May 30, 2023 11:[address] [facility] LIVER PROFILE Specimen Type: PLASMA Comment: Tests performed on [employer] (405) SN:[id number] Ordering Provider: GRETEL NIEVES JR Report Released Date/Time: May 24, 2023 03:03 PM Reporting Lab: [facility] [address] [address] Performing Lab: [facility] [address] [address] PROTEIN, TOTAL 7.0 g/dL 6.0-8.5 ALBUMIN 3.7 g/dL 3.2-5.0 BILIRUBIN, TOTAL 0.4 mg/dL 0.2-1.2 ALKALINE PHOSPHATASE 116 U/L 40-150 ALT(SGPT) 40 U/L 7-52 AST(SGOT) 38 U/L H 5-34 FIB-4 SCORE 1.30 {index} <2.67 May 30, 2023 11:[address] [facility] VIT D 25-OH(WRJ) Specimen Type: SERUM Comment: Tests performed on Tubett (405) SN:[id number] Ordering Provider: GRETEL NIEVES JR Report Released Date/Time: May 24, 2023 03:03 PM Reporting Lab: [facility] [address] [address] Performing Lab: [facility] [address] [address] VIT D 25-OH(J) 39.4 ng/mL 20-50 May 30, 2023 11:[address] [facility] THYROID TESTING CASCADE Specimen Type: SERUM Comment: Tests performed on Tubett (405) SN:[id number] Ordering Provider: GRETEL NIEVES JR Report Released Date/Time: May 24, 2023 03:03 PM Reporting Lab: [facility] [address] [address] Performing Lab: [facility] [address] [address] T4,FREE 0.9 ng/dL 0.6-1.6 TSH 7.52 u[IU]/mL H 0.35-5.00 May 30, 2023 11:[address] [facility] LIPOPROTEIN CHOLESTEROL FRACT. PANEL Specimen Type: PLASMA Comment: Tests performed on Tubett (405) SN:[id number] Ordering Provider: GRETEL NIEVES JR Report Released Date/Time: May 24, 2023 03:03 PM Reporting Lab: [facility] [address] [address] Performing Lab: [facility] [address] [facility] [address] CHOLESTEROL 173 mg/dL 0-199 TRIGLYCERIDE 44 mg/dL 0-149 HDL CHOLESTEROL 68 mg/dL >40 LDL CHOLESTEROL (CALC) 96 mg/dL 0-129 Advance Directives: All historical and current Section [...] May 18, 2021 ADVANCE DIRECTIVE RICHARD DAN [facility] Encounter Notes: All associated encounter notes This section contains the clinical notes associated to the Encounter. Date/Time Encounter Note(s) Provider Source Jun 20, 2023 02:17 PM RN PROGRESS NOTE: LOCAL TITLE: CCC: CLINICAL TRIAGE STANDARD TITLE: RN PROGRESS NOTE DATE OF NOTE: JUN 20, 2023@14:17:14 ENTRY DATE: JUN 20, 2023@14:17:14 AUTHOR: ALVAREZ DIALLO EXP COSIGNER: URGENCY: STATUS: COMPLETED CCC: CLINICAL TRIAGE Has ADDENDA Patient Demographics Patient Name: BISMARK HAYWARD SSN: [id number] Patient Primary Address: [address] [place] [address]
[place] [address] Patient Primary Phone: [phone] Patient : 1975 Patient Age: 47 Call Back Number: [phone] Caller/Recipient Relation to Patient: Self Emergency Contact: ENRICO HAYWARD Triage Summary Conducted triage/discussed symptoms Utilized the Triage Tool: Yes Chief Complaint: Nail Problem (finger) System WHEN: Within 2 Weeks Nurse's Recommendation / WHEN: Within 24 Hours Nurse's Recommendation / WHERE: Clinic/[facility] System WHERE: Clinic Patient Disposition Patient/Caregiver agrees to plan of care: Yes Nursing Plan and Disposition Referred Patient for In-Person Appt Other course(s) of action Transferred patient to Sched & Admin-Apt Generated msg to PACT/Provider Provided guidance for worsening symptoms: *Caller/Patient* advised to call facilities [place] Clinical Contact Center or seek immediate medical attention for new or worsening symptoms Nurse Summary Nurse Summary: Spoke to vet who reports about 1.5 weeks ago after working outside he noticed his right middle finger nail was cracked. He does not recall an actual injury. He reports he took off the loose part of the nail. 1/2 his nail remains and the nail bed is exposed on the other 1/2. He has been keeping it covered but the pain is not getting any better. He has 2/10 at rest but if it hits anything he has 8/10 pain. He reports some noticeable swelling. He denies drainage or fever. Machine Fixer advised PCP within 24 hrs. If no appointment he will go to [facility] for evaluation. Transferred call to [facility] [place] for possible scheduling. Will alert PACT. Clinical Contact Center Codes Clinic/Location: V1 [facility] PHONE [facility] RN TXCC Triage Complete Triage Note: Phone Triage 20 Jun 2023 18:13:17 +[address] [facility] Demographics 47 y/o Male Results CC: Nail Problem (finger) Software suggested: Within 2 Weeks Software suggested follow-up location: Clinic, consider virtual care Values and Measures Duration of CC: 1 Weeks Positive Responses HPI: fingernail pain, duration longer than 4 days Negative Responses Denies: HPI: finger injury, within past 2 days Denies: HPI: ingrown fingernail Denies: HPI: skin erythema, periungual Denies: HPI: skin tenderness, periungual /garrick/ ALVAREZ DIALLO Signed: 06/20/2023 14:17 Receipt Acknowledged By: 06/25/2023 08:18 /garrick/ CARROLL PETTY LPN 06/25/2023 08:22 /garrick/ IGNACIO ROSENBERG RN 06/20/2023 ADDENDUM STATUS: COMPLETED call out to vet- no answer- left VM to please contact clinic to update on status. /garrick/ IGNACIO ROSENBERG RN Signed: 06/20/2023 14:26 06/21/2023 ADDENDUM STATUS: COMPLETED attempting to contact vet- no answer- left vm that calling to check on status of injury- left vm as such. /ayla ROSENBERG RN Signed: 06/21/2023 16:14 ALVAREZ DIALLO [facility]
--- OUTSIDE RECORDS SUMMARY | 2024-04-14 14:01 | XMS_ITS | Encounter Summary ---
Author Name [facility] [place] Address [address] [facility], [place] [address] Care Team Providers Care Bilingual Sales Representative Name Role Phone LUIS MIGUEL NATE Primary Care Provider Unavailabl e Selected Encounter This section includes the information on record at [place] for the Encounter. Date/Time Encounter Type Encounter Description Reason Pro vider Source Jun 27, 2023 04:12 PM Outpatient Encounter PRIMARY CARE/MEDICINE IHE Encounter Template Text not used by [place] Plan of Treatment: Future Appointments (+ 6 months) and Future Tests (+/- 45 days) The Plan of Treatment section includes future care activities for the patient from all [place] treatmentfacilities. This section includes future appointments and future orders which are active, pending or scheduled. Future Appointments This section includes appointments that were scheduled to occur 6 months from the date of the Encounter, up to a maximum of 20 appointments. The data comes from all [place] treatment facilities. Appointment Date/Time Appointment Type Appointme nt Facility Name Jul 04, 2023 03:00 PM AMBULATORY - MEDICINE AZALEA BOWEN [facility] Oct 24, 2023 01:15 PM AMBULATORY - NONE [facility] Dec 24, 2023 11:30 AM AMBULATORY - MEDICINE AZALEA [facility]OWEN [facility] Active, Pending, and Scheduled Orders This section includes a listing of several types of active, pending, and scheduled orders, including clinic medications orders, diagnostic test orders, procedure orders and consult orders; where the start date of the order is 45 days before the date of the Encounter or 45 days after the date of theEncounter. The data comes from all [place] treatment facilities. Test Date/Time Test Type Test Details Facility Name Jul 09, 2023 12:00 AM Laboratory - Chemi stry Order THYROID TESTING CASCADE BLOOD(GOLD) SERUM SP [facility] Lab Results: +/- 30 days of the encounter This section includes the Chemistry and Hematology Lab Results on record with [place] for the patient. Radiology Reports and Pathology Reports are provided separately, in subsequent sections. Lab Results This section contains the Chemistry/Hematology Results that were resulted 30 days before or 30 daysafter the date of the Encounter. Date/Time Source Result Type Result - Unit Interpretation Reference Range Comment May 30, 2023 11:35 AM [facility] LIPOPROTEIN CHOLESTEROL FRACT. PANEL Specimen Type: PLASMA Comment: Tests performed on Sleek [employer] (405) SN:[id number] Ordering Provider: GRETEL NIEVES JR Report Released Date/Time: May 24, 2023 03:03 PM Reporting Lab: [facility] [address] [place] [facility] [place] [facility] [place] [address] Performing Lab: [facility] [address] [address] CHOLESTEROL 173 mg/dL 0-199 TRIGLYCERIDE 44 mg/dL 0-149 HDL CHOLESTEROL 68 mg/dL >40 LDL CHOLESTEROL (CALC) 96 mg/dL 0-129 May 30, 2023 11:35 AM [facility] LIVER PROFILE Specimen Type: PLASMA Comment: Tests performed on [employer] (405) SN:[id number] Ordering Provider: GRETEL NIEVES JR Report Released Date/Time: May 24, 2023 03:03 PM Reporting Lab: [facility] [address] [place] [facility] [place] [facility] [place] [address] Performing Lab: [facility] [address] [address] PROTEIN, TOTAL 7.0 g/dL 6.0-8.5 ALBUMIN 3.7 g/dL 3.2-5.0 BILIRUBIN, TOTAL 0.4 mg/dL 0.2-1.2 ALKALINE PHOSPHATASE 116 U/L 40-150 ALT(SGPT) 40 U/L 7-52 AST(SGOT) 38 U/L H 5-34 FIB-4 SCORE 1.30 {index} <2.67 May 30, 2023 11:35 AM [facility] P4 GLU,BUN,CREAT,LYTES,[place] Specimen Type: PLASMA Comment: Tests performed on [employer] (405) SN:[id number] Ordering Provider: GRETEL NIEVES JR Report Released Date/Time: May 24, 2023 03:03 PM Reporting Lab: [facility] [address] [address] Performing Lab: [facility] [address] [address] UREA NITROGEN 25 mg/dL 7-25 SODIUM 135 mmol/L 135-145 POTASSIUM 4.5 mmol/L 3.5-5.0 CHLORIDE 105 mmol/L 100-110 CARBON DIOXIDE 21 mmol/L 20-30 ANION GAP 9 mmol/L 4-16 GLUCOSE 90 mg/dL 65-100 CREATININE 0.86 mg/dL 0.5-1.5 CALCIUM 9.0 mg/dL 8.5-10.5 eGFR(CKD-EPI 2020) >90.0 mL/min >60 May 30, 2023 11:35 AM [facility] GLYCOHEMOGLOBIN (A1C ONLY) Specimen Type: BLOOD Comment: Tests performed on [employer] (405) SN:[id number] Values obtained from A1C measurements can vary. For typical A1C assays, a reported value of 7.0 could actually be between 6.72 and 7.28 if measured by a reference method. A reported value of 9.0 could actually be between 8.73 and 9.27. Reference http://www.ng [email or web address]/CAPdat a.asp Ordering Provider: GRETEL NIEVES JR Report Released Date/Time: May 24, 2023 03:03 PM Reporting Lab: [facility] [address] [address] Performing Lab: [facility] [address] [address] HEMOGLOBIN A1C 5.0 4.0-5.6 May 30, 2023 11:35 AM [facility] VITAMIN B-12 Specimen Type: SERUM Comment: Tests performed on [employer] (405) [id number] Ordering Provider: GRETEL NIEVES JR Report Released Date/Time: May 24, 2023 03:03 PM Reporting Lab: [facility] [address] [address] Performing Lab: [facility] [address] [address] VITAMIN B-12 905 pg/mL H 200-900 May 30, 2023 11:35 AM [facility] CBC NO DIFF Specimen Type: BLOOD No comment entered. Ordering Provider: GRETEL NIEVES JR Report Released Date/Time: May 24, 2023 03:03 PM Reporting Lab: [facility] [address] [address] Performing Lab: [facility] [address] [address] WBC 4.8 10*3/uL 4.5-11.0 RBC 4.56 10*6/uL 4.23-5.66 HGB 14.9 g/dL 12.8-17 HEMATOCRIT 43.6 39.2-50.4 MCV 95.6 fL 82-99 MCH 32.7 pg H 26.2-32.6 MCHC 34.2 g/dL 30.8-35.1 PLT 221 10*3/uL 140-360 MPV 9.3 fL 9.2-12.4 RDW 13.1 12.0-16.0 May 30, 2023 11:35 AM [facility] THYROID TESTING CASCADE Specimen Type: SERUM Comment: Tests performed on [employer] (405) [id number] Ordering Provider: GRETEL NIEVES JR Report Released Date/Time: May 24, 2023 03:03 PM Reporting Lab: [facility] [address] [address] Performing Lab: [facility] [address] [address] T4,FREE 0.9 ng/dL 0.6-1.6 TSH 7.52 u[IU]/mL H 0.35-5.00 May 30, 2023 11:35 AM [facility] VIT D 25-OH([facility]) Specimen Type: SERUM Comment: Tests performed on [employer] (405) [id number] Ordering Provider: GRETEL NIEVES JR Report Released Date/Time: May 24, 2023 03:03 PM Reporting Lab: [facility] [address] [address] Performing Lab: [facility] [address] [address] VIT D 25-OH(WRJ) 39.4 ng/mL 20-50 Advance [...] this document. The data comes from all [place] facilities. Date Advance Directives Provider Source May 18, 2021 ADVANCE DIRECTIVE RICHARD DAN [facility] Encounter Notes: All associated encounter notes This section contains the clinical notes associated to the Encounter. Date/Time Encounter Note(s) Provider Source Jun 21, 2023 04:12 PM NONVA NOTE: LOCAL TITLE: NonVA Medical Records STANDARD TITLE: NONVA NOTE DATE OF NOTE: JUN 21, 2023@16:12 ENTRY DATE: JUN 27, 2023@16:12:26 AUTHOR: CARROLL PETTY COSIGNER: URGENCY: STATUS: COMPLETED EVENT PROCEDURE: Urgent Care TREATING FACILITY: [facility] Chief Complaint: Patient comes in today for a Finger pain. (SOURCE: Patient) History of Patient Reports: Present Illness: Finger pain [ONSET: Week(s); Free text: Pt presents with a possible Infected finger nail, right hand middle finger. initail injury happened 2 wks ago where he states he took a off a piece of the finger nail, and about a week ago the swelling began to happen. He states he has been using peroxide and OTC cream which has not helped. EA] Dictation: 47-year-old male presents to the office today for evaluation of his right long finger. Approximately two weeks ago he pulled a large hang nail off the right long finger and seven days later he started noting swelling of the tissue and redness and some discharge. He denies fever or chills. Notes minor discomfort only if he bumps the finger. No pain at rest. He has been using topical antibiotics. He is keeping the finger covered with a Band-Aid. He has been using peroxide. General - NORMAL: 47-year-old male, and O x3, pleasant, and in no distress, Neuro; cranial nerves II through XII grossly intact, lungs; unlabored breathing, MSK; unguarded range of motion of the cervical/thoracic/lumbar spine, upper and lower extremities. Skin; pink dry and Intact with the exception of what is noted below.; ABNORMAL: right third/long finger, notes small abnormality to the distal nail (appears to have cut/knotched the nail), noted erythema/edema to lateral border of the perionychium, clear serous fluid noted, TIP in this area only, no DIP joint PTP. Paronychla of unspecified finger (L03.019) - Uncomplicated Keflex as directed. Epsom salt soaks (couple of times a day until symptoms improve). Bacitracin and Bandaid when at work; open to air at night. Monitor wound for signs of spreading Infection (fever, spreading redness, purulent discharge) and seek additional treatment as needed. Prescribed cephalexin 500 mg capsule: Take 1 Capsule (oral) 2 times per day for 10 days; Total Qty: 20 (Twenty) Capsule; No refills; Allow substitutions; Earliest Fill Date: Dictation diagnosis; right long finger paronychia. Epson salt soaks as directed. Keflex as directed. Bacitracin and a Band-Aid daily. Leave the wound open to air at night. Monitor symptoms, seek reevaluation should symptoms worsen or not improve. Nail may need to be removed if symptoms do not improve with this treatment. Tylenol for pain. No barrier to treatment plan. Individual historian. No outside medical records review. THE ATTACHED SCANNED DOCUMENT HAS BEEN REVIEWED AND AUTHORIZED BY DOCUMENT (S) SENT TO [facility] TO BE SCANNED. TO VIEW THIS DOCUMENT, OPEN CPRS TOOLS MENU AND THEN OPEN THE IMAGE DISPLAY VIEWER. /garrick/ CARROLL PETTY LPN Signed: 06/27/2023 16:14 Receipt Acknowledged By: 06/27/2023 16:18 /garrick/ CARROLL JIMENEZ RN [facility]
--- OUTSIDE RECORDS SUMMARY | 2024-04-14 14:02 | XMS_ITS ---
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 Date/Time Encounter Type Encounter Description Reason Pro vider Source May 08, 2023 03:27 PM Outpatient Encounter ADMIN PAT ACTIVTIES (SANDEEPNONCT) IHE Encounter Template Text not used by [place] Plan of Treatment: Future Appointments (+ 6 months) and Future Tests (+/- 45 days) The Plan of Treatment section includes future care activities for the patient from all [place] treatmentfacilities. This section includes future appointments and [...] 14, 2023 08:00 AM AMBULATORY - MEDICINE [facility] May 29, 2023 11:45 AM AMBULATORY - NONE [facility] Jul 04, 2023 03:00 PM AMBULATORY - MEDICINE [place]ALEA Cruz [facility] Oct 24, 2023 01:15 PM AMBULATORY - NONE [facility] Lab Results: +/- 30 days of the encounter This section includes the Chemistry and Hematology Lab Results on record with [place] for the patient. Radiology Reports and Pathology Reports are provided separately, in subsequent sections. Lab Results This section contains the Chemistry/Hematology Results that were resulted 30 days before or 30 daysafter the date of the Encounter. Date/Time Source Result Type Result - Unit Interpretation Reference Range Comment May 30, 2023 11:35 AM [facility] P4 GLU,BUN,CREAT,LYTES,CA Specimen Type: PLASMA Comment: Tests performed on [employer] (405) SN:[id number] Ordering Provider: GRETEL NIEVES JR Report Released Date/Time: May 24, 2023 03:03 PM Reporting Lab: [facility] [address] [facility] [address] Performing Lab: [facility] [address] [facility] [address] UREA NITROGEN 25 mg/dL 7-25 SODIUM 135 mmol/L 135-145 POTASSIUM 4.5 mmol/L 3.5-5.0 CHLORIDE 105 mmol/L 100-110 CARBON DIOXIDE 21 mmol/L 20-30 ANION GAP 9 mmol/L 4-16 GLUCOSE 90 mg/dL 65-100 CREATININE 0.86 mg/dL 0.5-1.5 CALCIUM 9.0 mg/dL 8.5-10.5 eGFR(CKD-EPI 2020) >90.0 mL/min >60 May 30, 2023 11:35 AM [facility] LIPOPROTEIN CHOLESTEROL FRACT. PANEL Specimen Type: PLASMA Comment: Tests performed on [employer] (405) SN:[id number] Ordering Provider: GRETEL NIEVES JR Report Released Date/Time: May 24, 2023 03:03 PM Reporting Lab: [facility] [address] [facility] [address] Performing Lab: [facility] [address] [facility] [address] CHOLESTEROL 173 mg/dL 0-199 TRIGLYCERIDE 44 mg/dL 0-149 HDL CHOLESTEROL 68 mg/dL >40 LDL CHOLESTEROL (CALC) 96 mg/dL 0-129 May 30, 2023 11:35 AM [facility] LIVER PROFILE Specimen Type: PLASMA Comment: Tests performed on [employer] (405) SN:[id number] Ordering Provider: GRETEL NIEVES JR Report Released Date/Time: May 24, 2023 03:03 PM Reporting Lab: [facility] [address] [facility] [address] Performing Lab: [facility] [address] [place] [address] PROTEIN, TOTAL 7.0 g/dL 6.0-8.5 ALBUMIN 3.7 g/dL 3.2-5.0 BILIRUBIN, TOTAL 0.4 mg/dL 0.2-1.2 ALKALINE PHOSPHATASE 116 U/L 40-150 ALT(SGPT) 40 U/L 7-52 AST(SGOT) 38 U/L H 5-34 FIB-4 SCORE 1.30 {index} <2.67 May 30, 2023 11:35 AM [facility] CBC NO DIFF Specimen Type: BLOOD No comment entered. Ordering Provider: GRETEL NIEVES JR Report Released Date/Time: May 24, 2023 03:03 PM Reporting Lab: [facility] [address] [facility] [address] Performing Lab: [facility] [address] [facility] [address] WBC 4.8 10*3/uL 4.5-11.0 RBC 4.56 10*6/uL 4.23-5.66 HGB 14.9 g/dL 12.8-17 HEMATOCRIT 43.6 39.2-50.4 MCV 95.6 fL 82-99 MCH 32.7 pg H 26.2-32.6 MCHC 34.2 g/dL 30.8-35.1 PLT 221 10*3/uL 140-360 MPV 9.3 fL 9.2-12.4 RDW 13.1 12.0-16.0 May 30, 2023 11:35 AM [facility] GLYCOHEMOGLOBIN (A1C ONLY) Specimen Type: BLOOD Comment: Tests performed on [employer] (405) SN:[id number] Values obtained from A1C measurements can vary. For typical A1C assays, a reported value of 7.0 could actually be between 6.72 and 7.28 if measured by a reference method. A reported value of 9.0 could actually be between 8.73 and 9.27. Reference [email or web address].ng [email or web address]/CAPdat a.asp Ordering Provider: GRETEL NIEVES JR Report Released Date/Time: May 24, 2023 03:03 PM Reporting Lab: [facility] [address] [facility] [address] Performing Lab: [facility] [address] [facility] [address] HEMOGLOBIN A1C 5.0 4.0-5.6 May 30, 2023 11:35 AM [facility] VITAMIN B-12 Specimen Type: SERUM Comment: Tests performed on [employer] (405) SN:[id number] Ordering Provider: GRETEL NIEVES JR Report Released Date/Time: May 24, 2023 03:03 PM Reporting Lab: [facility] [address] [facility] [address] Performing Lab: [facility] [address] [facility] [address] VITAMIN B-12 905 pg/mL H 200-900 May 30, 2023 11:35 AM [facility] THYROID TESTING CASCADE Specimen Type: SERUM Comment: Tests performed on [employer] (405) SN:[id number] Ordering Provider: GRETEL NIEVES JR Report Released Date/Time: May 24, 2023 03:03 PM Reporting Lab: [facility] [address] [facility] [address] Performing Lab: [facility] [address] [facility] [address] T4,FREE 0.9 ng/dL 0.6-1.6 TSH 7.52 u[IU]/mL H 0.35-5.00 May 30, 2023 11:35 AM [facility] VIT D 25-OH(WRJ) Specimen Type: SERUM Comment: Tests performed on [employer] (405) SN:[id number] Ordering Provider: GRETEL NIEVES JR Report Released Date/Time: May 24, 2023 03:03 PM Reporting Lab: [facility] [address] [facility] [address] Performing Lab: [facility] [address] [facility] [address] VIT D 25-OH(WRJ) 39.4 ng/mL 20-50 Advance [...] ADVANCE DIRECTIVE RICHARD DAN M[facility] Encounter Notes: All associated encounter notes This section contains the clinical notes associated to the Encounter. Date/Time Encounter Note(s) Provider Source May 08, 2023 03:27 PM ADMINISTRATIVE NOT E: LOCAL TITLE: Administrative Note/Telehealth STANDARD TITLE: ADMINISTRATIVE NOTE DATE OF NOTE: MAY 08, 2023@15:27 ENTRY DATE: MAY 08, 2023@15:27:39 AUTHOR: CHAPO SCHULER COSIGNER: URGENCY: STATUS: COMPLETED Call out to patient to schedule TH TELDERMATOLOGY appointment. No answer at this time. left with contact information, hours of operation and request for return call back to . Please forward to when patient returns call. Thank you. /garrick/ CHAPO SCHULER Health Law Office Manager Signed: 05/08/2023 15:28 [facility]
--- OUTSIDE RECORDS SUMMARY | 2024-04-14 14:02 | XMS_ITS | Encounter Summary ---
Author Name [facility] [place] [facility] [place] Address [address] [facility], [place] [address] Care Team Providers Care Director Of Social Services Name Role Phone LUIS MIGUELNATE Primary Care Provider Unavailabl e Selected Encounter This section includes the information on record at [place] for the Encounter. Date/Time Encounter Type Encounter Description Reason Provider Source May 08, 2023 10:00 AM NEUROMUSCULAR REEDUCATION PHYSICAL THERAPY ICD-10-CM M54.50 Low back pain, unspecified MICUCCI,NEAL IHE Encounter Template Text not used by [place] Assessments - Encounter Diagnoses This section includes the primary and secondary diagnoses documented for the Encounter. Date/Time Primary/Secondary Diagnosis Diagnosis Name Provider Source May 08, 2023 10:49 AM PRIMARY Low back pain, unspecified MICUCCI,NEAL [facility] May 08, 2023 10:49 AM SECONDARY Pain in right knee MICUCCI,NEAL [facility] May 08, 2023 10:49 AM SECONDARY Varicose veins of left lower extremity with inflammation MICUCCI,[facility] Plan of Treatment: Future Appointments (+ [...] 20 appointments. The data comes from all [place] treatment facilities. Appointment Date/Time Appointment Type Appointme nt Facility Name May 14, 2023 08:00 AM AMBULATORY - MEDICINE [facility] May 29, 2023 11:45 AM AMBULATORY - NONE [facility] Jul 04, 2023 03:00 PM AMBULATORY - MEDICINE [facility] Cruz [facility] Oct 24, 2023 01:15 PM AMBULATORY - NONE [facility] Lab Results: +/- 30 days of the encounter This section includes the Chemistry and Hematology Lab Results on record with [place] for the patient. Radiology Reports and Pathology Reports are provided separately, in subsequent sections. Lab Results This section contains the Chemistry/Hematology Results that were resulted 30 days before or 30 daysafter the date of the Encounter. Date/Time Source Result Type Result - Unit Interpretation Reference Range Comment May 30, 2023 11:35 AM [facility] P4 GLU,BUN,CREAT,LYTES,CA Specimen Type: PLASMA Comment: Tests performed on [employer] (405) SN:[id number] Ordering Provider: GRETEL NIEVES JR Report Released Date/Time: May 24, 2023 03:03 PM Reporting Lab: [facility] [address] [facility] [address] Performing Lab: [facility] [address] [facility] [address] UREA NITROGEN 25 mg/dL 7-25 SODIUM 135 mmol/L 135-145 POTASSIUM 4.5 mmol/L 3.5-5.0 CHLORIDE 105 mmol/L 100-110 CARBON DIOXIDE 21 mmol/L 20-30 ANION GAP 9 mmol/L 4-16 GLUCOSE 90 mg/dL 65-100 CREATININE 0.86 mg/dL 0.5-1.5 CALCIUM 9.0 mg/dL 8.5-10.5 eGFR(CKD-EPI 2020) >90.0 mL/min >60 May 30, 2023 11:35 AM [facility] LIVER PROFILE Specimen Type: PLASMA Comment: Tests performed on [employer] (405) SN:[id number] Ordering Provider: GRETEL NIEVES JR Report Released Date/Time: May 24, 2023 03:03 PM Reporting Lab: [facility] [address] [facility] [address] Performing Lab: [facility] [address] [facility] [address] PROTEIN, TOTAL 7.0 g/dL 6.0-8.5 ALBUMIN 3.7 g/dL 3.2-5.0 BILIRUBIN, TOTAL 0.4 mg/dL 0.2-1.2 ALKALINE PHOSPHATASE 116 U/L 40-150 ALT(SGPT) 40 U/L 7-52 AST(SGOT) 38 U/L H 5-34 FIB-4 SCORE 1.30 {index} <2.67 May 30, 2023 11:35 AM [facility] GLYCOHEMOGLOBIN (A1C ONLY) Specimen Type: BLOOD Comment: Tests performed on [employer] (405) SN:[id number] Values obtained from A1C measurements can vary. [...] PM Reporting Lab: [facility] [address] [facility] [address] Performing Lab: [facility] [address] [facility] [address] HEMOGLOBIN A1C 5.0 4.0-5.6 May 30, 2023 11:35 AM [facility] CBC NO DIFF Specimen Type: BLOOD No comment entered. Ordering Provider: GRETEL NIEVES JR Report Released Date/Time: May 24, 2023 03:03 PM Reporting Lab: [facility] [address] [facility] [address] Performing Lab: [facility] [address] [facility] [address] WBC 4.8 10*3/uL 4.5-11.0 RBC 4.56 10*6/uL 4.23-5.66 HGB 14.9 g/dL 12.8-17 HEMATOCRIT 43.6 39.2-50.4 MCV 95.6 fL 82-99 MCH 32.7 pg H 26.2-32.6 MCHC 34.2 g/dL 30.8-35.1 PLT 221 10*3/uL 140-360 MPV 9.3 fL 9.2-12.4 RDW 13.1 12.0-16.0 May 30, 2023 11:35 AM [facility] VITAMIN B-12 Specimen Type: SERUM Comment: Tests performed on [employer] (405) SN:[id number] Ordering Provider: GRETEL NIEVES JR Report Released Date/Time: May 24, 2023 03:03 PM Reporting Lab: [facility] [address] [facility] [address] Performing Lab: [facility] [address] [facility] [address] VITAMIN B-12 905 pg/mL H 200-900 May 30, 2023 11:35 AM [facility] LIPOPROTEIN CHOLESTEROL FRACT. PANEL Specimen Type: PLASMA Comment: Tests performed on [employer] (405) SN:[id number] Ordering Provider: GRETEL NIEVES JR Report Released Date/Time: May 24, 2023 03:03 PM Reporting Lab: [facility] [address] [facility] [address] Performing Lab: [facility] [address] [facility] [address] CHOLESTEROL 173 mg/dL 0-199 TRIGLYCERIDE 44 mg/dL 0-149 HDL CHOLESTEROL 68 mg/dL >40 LDL CHOLESTEROL (CALC) 96 mg/dL 0-129 May 30, 2023 11:35 AM [facility] THYROID TESTING CASCADE Specimen Type: SERUM Comment: Tests performed on [employer] (405) SN:[id number] Ordering Provider: GRETEL NIEVES JR Report Released Date/Time: May 24, 2023 03:03 PM Reporting Lab: [facility] [address] [facility] [address] Performing Lab: [facility] [address] [facility] [address] T4,FREE 0.9 ng/dL 0.6-1.6 TSH 7.52 u[IU]/mL H 0.35-5.00 May 30, 2023 11:35 AM [facility] VIT D 25-OH([facility]) Specimen Type: SERUM Comment: Tests performed on [employer] (961) SN:[id number] Ordering Provider: LIZBETHGRETEL NATHANAEL Ferrell JR Report Released Date/Time: May 24, 2023 03:03 PM Reporting Lab: [facility] [address] [facility] [address] Performing Lab: [facility] [address] [facility] [address] VIT D 25-OH(WRJ) 39.4 ng/mL 20-50 Social History: Smoking Status (Most current) and Tobacco Use (All prior to encounter date) This section includes the most current, and the historical, smoking and tobacco- related health factors from the [place] facility where the Encounter took place. Current Smoking Status This section includes the most current smoking, or tobacco-related health factor, from the [place] facility where the Encounter took place. Date/Time Current Smoking Status Comment Facil ity Feb 27, 2022 09:00 AM [facility]-TOBACCO NEVER USED [facility] Tobacco Use History This section includes a history of the smoking, or tobacco-related health factors, that were collected on or before the date of the Encounter. The data comes from the [place] facility where the Encounter took place. Date/Time Smoking Status/Tobacco Use Comment F acility Nov 04, 2020 08:30 AM VA-TOBACCO NEVER [...] ALL of a patient's completed or amended [place] Advance and Rescinded Directives. The entries below indicate that a directive exists for the patient, but an actual copy is not included with this document. The data comes from all [place] facilities. Date Advance Directives Provider Source May 18, 2021 ADVANCE DIRECTIVE RICHARD DAN [facility] Encounter Notes: All associated encounter notes This section contains the clinical notes associated to the Encounter. Date/Time Encounter Note(s) Provider Source May 08, 2023 10:00 AM PHYSICAL THERAPY N OTE: LOCAL TITLE: Physical Therapy Note STANDARD TITLE: PHYSICAL THERAPY NOTE DATE OF NOTE: MAY 08, 2023@10:00 ENTRY DATE: MAY 08, 2023@10:01:01 AUTHOR: NEAL ROBERT EXP COSIGNER: URGENCY: STATUS: COMPLETED Physical Therapy Note Has ADDENDA Diagnosis: Recurrent LBP Referred by: Dr Wisdom Referred for: Evaluate and treat Date of Onset: Chronic Start of Physical Therapy plan of care: 04/03/23 Visit # 2 S. Compression stockings- going well- tolerating it well. Heel lift - currently using half in work boots-seems to be helping as now has no LBP. 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 Usually bothers when wet & cold! (OK today). O. Therex NUSTEP L4 8' Knee flexion stretch with 4 ply towel Exercises- good return demo: - Hooklying Single Knee to Chest Stretch 2 reps - 10 hold - Supine Double Knee to Chest Modified 2 reps - 10 hold - Supine Lower Trunk Rotation 5 reps - 5 hold - Straight Leg Raise with External Rotation 3 reps - 5 hold - Hip Flexor Stretch on Step - 1 x daily 2 reps - 30 hold - Standing with Forearms Thoracic Rotation 5 reps Assessment/Prognosis/Rehabilit ation Potential: 47 y/o with 1 leg length discrepancy (R shorter), LBP, varicose veins/ swelling R>L, MCL tenderness R with pain both end range extension and loss of ROM (118) and pain into flexion. Mild loss of thoraco- lumbar- hip ROM partially due to large abdomen. Good rehab potential. Plan: Thigh high compression for support of varicose veins- follow up/ custom flat knit if does not tolerate circular knit. AM stretch program for hips- lumbar- thoracic XF massage and ice massage to tx MCL sprain R knee Heel lifts for partial correction leg length discrepancy. Knee flexion stretches to regain normal ROM R knee. Short Term Goals: 4-6 weeks 1. [place] to be I with ROM HEP for spine and R knee MET 2. [place] to use 10/01- 09/27 heel lift R 1 month MET 3. [place] to be I with self tx R MCL strain. MET Value Analyst Goals: 8- 12 weeks 1. to c/o minimal to no pain lumbar MET 2. to c/o I with use of compression while standing (Often static) for work. MET 3. Max R OA knee pain 01/01. MET Total Time: 35 Manual Therapy 59765 Therex 00682 Thera Activity [address] [place] [address] 35 Hot/Cold Pack 84379 Estim 02461 Ultrasound 92821 Ortho fit The above results and recommendations were explained to the , who verbally acknowledged an understanding thereof. The plan of care, the expected benefits, and known risks associated with the recommended treatment, alternative treatments, or no treatment with the associated risks has been discussed with the (or surrogate). The (or surrogate) had an opportunity to ask questions which were answered to the 's (or surrogate's) satisfaction. The patient (or surrogate) agreed to proceed with the recommended plan of care. Please do not hesitate to call contact me with questions/concerns- Thank you! Suicide Screen: C-SSRS Screening [place]-Suicide Severity Rating Scale (C-SSRS Screener) 1. Over the past month, have you [...] due to responses to other questions. /garrick/ NEAL ROBERT Physical Therapist, licenced in [place] Signed: 05/08/2023 10:49 05/08/2023 ADDENDUM STATUS: COMPLETED PCP- please can you order IT stays body adhesive via the Pharmacy- his thigh high compression stockings for varicose veins are working well, but the left one falls down during the day (slightly smaller leg). Thanks! /ayla ROBERT Physical Therapist, licenced in [place] Signed: 05/08/2023 10:57 Receipt Acknowledged By: * AWAITING SIGNATURE * BROTHERS,NEAL LEYVA JR [facility]
--- OUTSIDE RECORDS SUMMARY | 2024-04-14 14:02 | XMS_ITS | Encounter Summary ---
Author Name [facility] [facility] [place] Address [address], [place] [address] Care Team Providers Care Finish Mill Operator Name Role Phone NATE BOLANOS Primary Care Provider Unavailabl e Selected Encounter This section includes the information on record at [place] for the Encounter. Date/Time Encounter Type Encounter Description Reason Pro vider Source May 17, 2023 11:37 AM Outpatient Encounter PRIMARY CARE/MEDICINE IHE Encounter [...] Appointment Type Appointme nt Facility Name May 29, 2023 11:45 AM AMBULATORY - NONE [facility] Jul 04, 2023 03:00 PM AMBULATORY - MEDICINE [facility] Oct 24, 2023 01:15 PM AMBULATORY - NONE [facility] Lab Results: +/- 30 days of the encounter This section includes the Chemistry and Hematology Lab Results on record with [place] for the patient. Radiology Reports and Pathology [...] May 24, 2023 03:03 PM Reporting Lab: [facility] [address] [address] Performing Lab: [facility] [address] [address] WBC 4.8 10*3/uL 4.5-11.0 RBC 4.56 10*6/uL 4.23-5.66 HGB 14.9 g/dL 12.8-17 HEMATOCRIT 43.6 39.2-50.4 MCV 95.6 fL 82-99 MCH 32.7 pg H 26.2-32.6 MCHC 34.2 g/dL 30.8-35.1 PLT 221 10*3/uL 140-360 MPV 9.3 fL 9.2-12.4 RDW 13.1 12.0-16.0 May 30, 2023 11:35 AM [facility] LIPOPROTEIN CHOLESTEROL FRACT. PANEL Specimen Type: PLASMA Comment: Tests performed on ClasesD (405) SN:[id number] Ordering Provider: GRETEL NIEVES JR Report Released Date/Time: May 24, 2023 03:03 PM Reporting Lab: [facility] [address] [address] Performing Lab: [facility] [address] [address] CHOLESTEROL 173 mg/dL 0-199 TRIGLYCERIDE 44 mg/dL 0-149 HDL CHOLESTEROL 68 mg/dL >40 LDL CHOLESTEROL (CALC) 96 mg/dL 0-129 May 30, 2023 11:35 AM [facility] P4 GLU,BUN,CREAT,LYTES,CA Specimen Type: PLASMA Comment: Tests performed on ClasesD (405) SN:[id number] Ordering Provider: GRETEL NIEVES JR Report Released Date/Time: May 24, 2023 03:03 PM Reporting Lab: [facility] [address] [address] Performing Lab: [facility] [address] [address] UREA NITROGEN 25 mg/dL 7-25 SODIUM 135 mmol/L 135-145 POTASSIUM 4.5 mmol/L 3.5-5.0 CHLORIDE 105 mmol/L 100-110 CARBON DIOXIDE 21 mmol/L 20-30 ANION GAP 9 mmol/L 4-16 GLUCOSE 90 mg/dL 65-100 CREATININE 0.86 mg/dL 0.5-1.5 CALCIUM 9.0 mg/dL 8.5-10.5 eGFR(CKD-EPI 2020) >90.0 mL/min >60 May 30, 2023 11:35 AM [facility] LIVER PROFILE Specimen Type: PLASMA Comment: Tests performed on ClasesD (405) SN:[id number] Ordering Provider: GERTEL NIEVES JR Report Released Date/Time: May 24, 2023 03:03 PM Reporting Lab: [facility] [address] [address] Performing Lab: [place] [phone] PROTEIN, TOTAL 7.0 g/dL 6.0-8.5 ALBUMIN 3.7 g/dL 3.2-5.0 BILIRUBIN, TOTAL 0.4 mg/dL 0.2-1.2 ALKALINE PHOSPHATASE 116 U/L 40-150 ALT(SGPT) 40 U/L 7-52 AST(SGOT) 38 U/L H 5-34 FIB-4 SCORE 1.30 {index} <2.67 May 30, 2023 11:35 AM [facility] GLYCOHEMOGLOBIN (A1C ONLY) Specimen Type: BLOOD Comment: Tests performed on [employer] (405) SN:[id number] Values obtained from A1C measurements can vary. [...] Lab: [facility] [address] [address] Performing Lab: [facility] [address] [address] HEMOGLOBIN A1C 5.0 4.0-5.6 May 30, 2023 11:35 AM [facility] THYROID TESTING CASCADE Specimen Type: SERUM Comment: Tests performed on Rose [employer] (405) SN:[id number] Ordering Provider: GRETEL NIEVES JR Report Released Date/Time: May 24, 2023 03:03 PM Reporting Lab: [facility] [address] [address] Performing Lab: [facility] [address] [address] T4,FREE 0.9 ng/dL 0.6-1.6 TSH 7.52 u[IU]/mL H 0.35-5.00 May 30, 2023 11:35 AM [facility] VITAMIN B-12 Specimen Type: SERUM Comment: Tests performed on [employer] (405) SN:[id number] Ordering Provider: GRETEL NIEVES JR Report Released Date/Time: May 24, 2023 03:03 PM Reporting Lab: [facility] [address] [address] Performing Lab: [facility] [address] [address] VITAMIN B-12 905 pg/mL H 200-900 May 30, 2023 11:35 AM [facility] VIT D 25-OH(WRJ) Specimen Type: SERUM Comment: Tests performed on [employer] (405) SN:[id number] Ordering Provider: GRETEL NIEVES JR Report Released Date/Time: May 24, 2023 03:03 PM Reporting Lab: [facility] [address] [address] Performing Lab: [facility] [address] [address] VIT D 25-OH(WRJ) 39.4 ng/mL 20-50 Advance [...] May 18, 2021 ADVANCE DIRECTIVE [facility] Encounter Notes: All associated encounter notes This section contains the clinical notes associated to the Encounter. Date/Time Encounter Note(s) Provider Source May 10, 2023 11:37 AM NONVA NOTE: LOCAL TITLE: NonVA Medical Records STANDARD TITLE: NONVA NOTE DATE OF NOTE: MAY 10, 2023@11:37 ENTRY DATE: MAY 17, 2023@11:37:35 AUTHOR: CARROLL PETTY COSIGNER: URGENCY: STATUS: COMPLETED NonVA Medical Records Has ADDENDA EVENT PROCEDURE: Urgent Care Note TREATING FACILITY: [facility] Chief Complaint: Patient comes In today for a Rash, (SOURCE: Patient) History of Patient Reports: Present Illness: Rash [Free text; Rash >one week bilateral arm, legs, abdomen, Itchy painful, dry, JI] Dictation: 47 y/o male presents for evaluation of an itchy rash. Rash present for one week. It has been spreading. Rash is itchy sometimes. Over the past week he has also noted fever, chills, diarrhea, abdominal pain. He denies cough, sore throat, runny nose, muscle pain. No new medications, lotions, detergent. No exposure to poison hilton; no lawn care. PMH: Essential (primary) hypertension (110) (Active); Insomnia (G47.00) (Active); Disorder of thyroid, unspecified (E07.9) (Active); Allergic rhinitis (J30.9) (Active); GERD (O99.619) (Active) Taken on 05/10/2023 at 9:54 AM: BP: 153/88 mmHg Automatic Left arm Adult PULSE: 59 bpm RESP: 16 breaths/min TEMP: 98.1 Temporal O2 SAT: 99% Administered 10 mg dexamethasone sodium phosphate 10 mg/mL solution orally on 05/10/2023 at 10:24 AM (10:24) . Retail Clerk: [employer] Lot #: [id number] Expiration Date: 05/24/2024 Completed by: Eddie Leon Viral exanthem (B09) - Uncomplicated Oral Dexamethasone 10 mg given at this visit. Medrol dose fernando as directed for the next six days. Benadryl as directed; up to six tablets in 24 hours (do not take and drive as this medication causes sedation). Cool colloidal oatmeal baths. Tylenol for your fever. BRAT diet. Push fluids. Cool compresses. Keep your appointment with your PCP on Sunday, follow up sooner as needed. Prescribed Medrol (Fernando) 4 mg tablets In a dose pack: Take 1 Units (oral) Take as directed until done.; Total Qty: 1 (One) Pack; No refills; Allow substitutions; Earliest Fill Date: 05/10/23 Dictation Symptoms most likely secondary to viral exanthum. Dexamethasone 10 mg orally given at visit. Medrol dose fernando as directed. Push fluids. Tylenol/Motrin for pain/fever. Worsening symptoms will require further evaluation. No barrier to treatment plan. No review of outside medical records. Individual historian, Viral exanthem (809) - Illness, Acute, Uncomplicated Work & School Note 2022-1 Patient [id number]& School Note 2022.pdf Patient Text Message Approval-1 Patient [id number] Message Approval.pdf Patient Forms for Signature for All other visits 2-1 Patient [id number] for Signature for All other visits 2.pdf THE ATTACHED SCANNED DOCUMENT HAS BEEN REVIEWED AND AUTHORIZED BY DOCUMENT (S) SENT TO [employer] TO BE SCANNED. TO VIEW THIS DOCUMENT, OPEN [employer] TOOLS MENU AND THEN OPEN THE IMAGE DISPLAY VIEWER. /garrick/ CARROLL PETTY LPN Signed: 05/17/2023 11:40 Receipt Acknowledged By: 05/21/2023 10:09 /garrick/ IGNACIO ROSENBERG RN 05/17/2023 ADDENDUM STATUS: COMPLETED Patient has had Telederm follow up /garrick/ CARROLL PETTY LPN Signed: 05/17/2023 11:41 CARROLL PETTY [facility]
--- OUTSIDE RECORDS SUMMARY | 2024-04-14 14:02 | XMS_ITS | Encounter Summary ---
Author Name [facility] [place] Address [address], [place] [address] Care Team Providers Care Lead Case Manager Name Role Phone LUIS MIGUEL NATE Primary Care Provider Unavailabl e Selected Encounter This section includes the information on record at [place] for the Encounter. Date/Time Encounter Type Encounter Description Reason Provider Source Jun 04, 2023 01:52 PM Outpatient Encounter PRIMARY CARE/MEDICINE RANCHO NIEVES JR Cruz Encounter Template Text not used by [place] Plan of Treatment: Future Appointments (+ 6 [...] 03:00 PM AMBULATORY - MEDICINE [facility] Oct 24, 2023 01:15 PM AMBULATORY - NONE [facility] Active, Pending, and Scheduled Orders [...] TESTING CASCADE BLOOD(GOLD) SERUM SP [facility] Lab Results: +/- 30 days of the encounter This section includes the Chemistry and Hematology Lab Results on record with [place] for the patient. Radiology Reports and Pathology Reports are provided separately, in subsequent sections. Lab Results This section contains the Chemistry/Hematology Results that were resulted 30 days before or 30 daysafter the date of the Encounter. Date/Time Source Result Type Result - Unit Interpretation Reference Range Comment May 30, 2023 11:35 AM [facility] CBC NO DIFF Specimen Type: BLOOD No comment entered. Ordering Provider: GRETEL NIEVES JR Report Released Date/Time: May 24, 2023 03:03 PM Reporting [facility] [address] [address] Performing Lab: [facility] [address] [address] WBC 4.8 10*3/uL 4.5-11.0 RBC 4.56 10*6/uL 4.23-5.66 HGB 14.9 g/dL 12.8-17 HEMATOCRIT 43.6 39.2-50.4 MCV 95.6 fL 82-99 MCH 32.7 pg H 26.2-32.6 MCHC 34.2 g/dL 30.8-35.1 PLT 221 10*3/uL 140-360 MPV 9.3 fL 9.2-12.4 RDW 13.1 12.0-16.0 May 30, 2023 11:35 AM [facility] LIVER PROFILE Specimen Type: PLASMA Comment: Tests performed on Chewse 405 SN:[id number] Ordering Provider: GRETEL NIEVES JR Report Released Date/Time: May 24, 2023 03:03 PM Reporting Lab: [facility] [address] [address] Performing Lab: [facility] [address] [address] PROTEIN, TOTAL 7.0 g/dL 6.0-8.5 ALBUMIN 3.7 g/dL 3.2-5.0 BILIRUBIN, TOTAL 0.4 mg/dL 0.2-1.2 ALKALINE PHOSPHATASE 116 U/L 40-150 ALT(SGPT) 40 U/L 7-52 AST(SGOT) 38 U/L H 5-34 FIB-4 SCORE 1.30 {index} <2.67 May 30, 2023 11:35 AM [facility] LIPOPROTEIN CHOLESTEROL FRACT. PANEL Specimen Type: PLASMA Comment: Tests performed on Chewse (405) SN:[id number] Ordering Provider: GRETEL NIEVES JR Report Released Date/Time: May 24, 2023 03:03 PM Reporting Lab: [facility] [address] [address] Performing Lab: [facility] [address] [address] CHOLESTEROL 173 mg/dL 0-199 TRIGLYCERIDE 44 mg/dL 0-149 HDL CHOLESTEROL 68 mg/dL >40 LDL CHOLESTEROL (CALC) 96 mg/dL 0-129 May 30, 2023 11:35 AM [facility] P4 GLU,BUN,CREAT,LYTES,CA Specimen Type: PLASMA Comment: Tests performed on [employer] (405) SN:[id number] Ordering Provider: GRETEL NIEVES JR Report Released Date/Time: May 24, 2023 03:03 PM Reporting Lab: [facility] [address] [address] Performing Lab: [facility] [address] [address] UREA NITROGEN 25 mg/dL 7-25 SODIUM 135 mmol/L 135-145 POTASSIUM 4.5 mmol/L 3.5-5.0 CHLORIDE 105 mmol/L 100-110 CARBON DIOXIDE 21 mmol/L 20-30 ANION GAP 9 mmol/L 4-16 GLUCOSE 90 mg/dL 65-100 CREATININE 0.86 mg/dL 0.5-1.5 CALCIUM 9.0 mg/dL 8.5-10.5 eGFR(CKD-EPI 2020) >90.0 mL/min >60 May 30, 2023 11:35 AM [facility] GLYCOHEMOGLOBIN (A1C ONLY) Specimen Type: BLOOD Comment: Tests performed on [employer] Worker (405) SN:[id number] Values obtained from A1C measurements can vary. For typical A1C assays, a reported value of 7.0 could actually be between 6.72 and 7.28 if measured by a reference method. A reported value of 9.0 could actually be between 8.73 and 9.27. Reference http://www.ng sp.org/CAPdat a.asp Ordering Provider: GRETEL NIEVES JR Report Released Date/Time: May 24, 2023 03:03 PM Reporting Lab: [facility] [address] [address] Performing Lab: [facility] [address] [address] HEMOGLOBIN A1C 5.0 4.0-5.6 May 30, 2023 11:35 AM [facility] VITAMIN B-12 Specimen Type: SERUM Comment: Tests performed on [employer] Worker (405) SN:[id number] Ordering Provider: GRETEL NIEVES JR Report Released Date/Time: May 24, 2023 03:03 PM Reporting Lab: [facility] [address] [address] Performing Lab: [facility] [address] [address] VITAMIN B-12 905 pg/mL H 200-900 May 30, 2023 11:35 AM [facility] THYROID TESTING CASCADE Specimen Type: SERUM Comment: Tests performed on [employer] Worker (405) SN:[id number] Ordering Provider: GRETEL NIEVES JR Report Released Date/Time: May 24, 2023 03:03 PM Reporting Lab: [facility] [address] [address] Performing [facility]: [facility] [address] [address] T4,FREE 0.9 ng/dL 0.6-1.6 TSH 7.52 u[IU]/mL H 0.35-5.00 May 30, 2023 11:35 AM [facility] VIT D 25-OH(J) Specimen Type: SERUM Comment: Tests performed on [employer] Worker (405) SN:[id number] Ordering Provider: GRETEL NIEVES JR Report Released Date/Time: May 24, 2023 03:03 PM Reporting Lab: [facility] [address] [address] Performing Lab: [facility] [address] [address] VIT D 25-OH(WRJ) 39.4 ng/mL 20-50 Advance [...] Encounter. Date/Time Encounter Note(s) Provider Source Jun 04, 2023 01:52 PM PRIMARY CARE [place] MESSAGING: LOCAL TITLE: PRIMARY CARE SECURE MESSAGING STANDARD TITLE: PRIMARY CARE SECURE MESSAGING DATE OF NOTE: JUN 04, 2023@13:52 ENTRY DATE: JUN 04, 2023@14:52:39 AUTHOR: RANCHO NIEVES EXP COSIGNER: URGENCY: STATUS: COMPLETED ------Original Message -------- Sent: 06/04/2023 02:52 PM ET From: RANCHO NIEVES To: BISMARK HAYWARD Subject: Medication:Medication Inquiry Hi The TSH level is still high indicating room to adjust they levothyroxine. I have increased the dose from 200mcg daily to 224 mcg daily. Lets have you take this for 30 days, I will put in lab order for you to recheck after July 09. Rancho /garrick/ RANCHO NIEVES JR, PA-C Signed: 06/04/2023 14:52 RANCHO NIEVES JR [facility]
--- OUTSIDE RECORDS SUMMARY | 2024-04-14 14:02 | XMS_ITS | Encounter Summary ---
Author Name [facility] Organization [facility] [place] Address [address], [place] [address] Care Team Providers Care Rotary Engine Assembler Name Role Phone LUIS MIGUEL NATE Primary Care Provider Unavailabl e Selected Encounter This section includes the information on record at [place] for the Encounter. Date/Time Encounter Type Encounter Description Reason Provider Source May 14, 2023 08:00 AM UNLISTED SPEC DERM SVC/PX DERMATOLOGY ICD-10-CM Z13.89 Encounter for screening for other disorder [facility] Encounter Template Text not used by [place] Assessments - Encounter Diagnoses This section includes the primary and secondary diagnoses documented for the Encounter. Date/Time Primary/Secondary Diagnosis Diagnosis Name Provider Source May 14, 2023 08:11 AM PRIMARY Encounter for screening for other disorder CHAPO SCHULER [facility] Plan of Treatment: Future Appointments [...] 29, 2023 11:45 AM AMBULATORY - NONE [facility] Jul 04, 2023 03:00 PM AMBULATORY - MEDICINE [facility] Cruz [facility] Oct 24, 2023 01:15 PM AMBULATORY - NONE [facility] Lab Results: +/- 30 days [...] Range Comment May 30, 2023 11:35 AM [facility] LIPOPROTEIN CHOLESTEROL FRACT. PANEL Specimen Type: PLASMA Comment: Tests performed on Rose Delinquent Notice Machine Operator (405) SN:[id number] Ordering Provider: GRETEL NIEVES JR Report Released Date/Time: May 24, 2023 03:03 PM Reporting Lab: [facility] [address] [facility] [address] Performing Lab: [facility] [address] [facility] [address] CHOLESTEROL 173 mg/dL 0-199 TRIGLYCERIDE 44 mg/dL 0-149 HDL CHOLESTEROL 68 mg/dL >40 LDL CHOLESTEROL (CALC) 96 mg/dL 0-129 May 30, 2023 11:35 AM [facility] LIVER PROFILE Specimen Type: PLASMA Comment: Tests performed on [employer] [facility] (405) SN:[id number] Ordering Provider: GRETEL NIEVES JR Report Released Date/Time: May 24, 2023 03:03 PM Reporting Lab: [facility] [address] [facility] [address] Performing Lab: [facility] [address] [facility] [address] PROTEIN, TOTAL 7.0 g/dL 6.0-8.5 ALBUMIN 3.7 g/dL 3.2-5.0 BILIRUBIN, TOTAL 0.4 mg/dL 0.2-1.2 ALKALINE PHOSPHATASE 116 U/L 40-150 ALT(SGPT) 40 U/L 7-52 AST(SGOT) 38 U/L H 5-34 FIB-4 SCORE 1.30 {index} <2.67 May 30, 2023 11:35 AM [facility] CBC NO DIFF Specimen Type: BLOOD No comment entered. Ordering Provider: GRETEL NIEVES JR Report Released Date/Time: May 24, 2023 03:03 PM Reporting Lab: [facility] [address] [facility] [address] Performing Lab: [facility] [address] [facility] [address] WBC 4.8 10*3/uL 4.5-11.0 RBC 4.56 10*6/uL 4.23-5.66 HGB 14.9 g/dL 12.8-17 HEMATOCRIT 43.6 39.2-50.4 MCV 95.6 fL 82-99 MCH 32.7 pg H 26.2-32.6 MCHC 34.2 g/dL 30.8-35.1 PLT 221 10*3/uL 140-360 MPV 9.3 fL 9.2-12.4 RDW 13.1 12.0-16.0 May 30, 2023 11:35 AM [facility] GLYCOHEMOGLOBIN (A1C ONLY) Specimen Type: BLOOD Comment: Tests performed on [employer] [facility] (405) SN:[id number] Values obtained from A1C measurements can vary. For typical A1C assays, a reported value of 7.0 could actually be between 6.72 and 7.28 if measured by a reference method. A reported value of 9.0 could actually be between 8.73 and 9.27. Reference [email or web address].ng [email or web address]/CAPdat a.[email or web address] Ordering Provider: GRETEL NIEVES JR Report Released Date/Time: May 24, 2023 03:03 PM Reporting Lab: [facility] [address] [facility] [address] Performing Lab: [facility] [address] [facility] [address] HEMOGLOBIN A1C 5.0 4.0-5.6 May 30, 2023 11:35 AM [facility] VITAMIN B-12 Specimen Type: SERUM Comment: Tests performed on Rose [employer] (405) SN:[id number] Ordering Provider: GRETEL NIEVES JR Report Released Date/Time: May 24, 2023 03:03 PM Reporting Lab: [facility] [address] [facility] [address] Performing Lab: [facility] [address] [facility] [address] VITAMIN B-12 905 pg/mL H 200-900 May 30, 2023 11:35 AM [facility] THYROID TESTING CASCADE Specimen Type: SERUM Comment: Tests performed on [employer] (405) SN:[id number] Ordering Provider: GRETEL NIEVES JR Report Released Date/Time: May 24, 2023 03:03 PM Reporting Lab: [facility] [address] [facility] [address] Performing Lab: [facility] [address] [facility] [address] T4,FREE 0.9 ng/dL 0.6-1.6 TSH 7.52 u[IU]/mL H 0.35-5.00 May 30, 2023 11:35 AM [facility] P4 GLU,BUN,CREAT,LYTES,CA Specimen Type: PLASMA Comment: Tests performed on [employer] (405) SN:[id number] Ordering Provider: GRETEL NIEVES JR Report Released Date/Time: May 24, 2023 03:03 PM Reporting Lab: [facility] [address] [facility] [address] Performing Lab: [facility] [address] [facility] [address] UREA NITROGEN 25 mg/dL 7-25 SODIUM 135 mmol/L 135-145 POTASSIUM 4.5 mmol/L 3.5-5.0 CHLORIDE 105 mmol/L 100-110 CARBON DIOXIDE 21 mmol/L 20-30 ANION GAP 9 mmol/L 4-16 GLUCOSE 90 mg/dL 65-100 CREATININE 0.86 mg/dL 0.5-1.5 CALCIUM 9.0 mg/dL 8.5-10.5 eGFR(CKD-EPI 2020) >90.0 mL/min >60 May 30, 2023 11:35 AM [facility] VIT D 25-OH([facility]) Specimen Type: SERUM Comment: Tests performed on Rose [employer] (405) SN:[id number] Ordering Provider: GRETEL NIEVES JR Report Released Date/Time: May 24, 2023 03:03 PM Reporting Lab: [facility] [address] [facility] [address] Performing Lab: [facility] [address] [facility] [address] VIT D 25-OH([facility]) 39.4 ng/mL 20-50 Social History: Smoking Status (Most current) and Tobacco Use (All prior to encounter date) This section includes the most current, and the historical, smoking and tobacco- related health factors from the [place] facility where the Encounter took place. Current Smoking Status This section includes the most current smoking, or tobacco-related health factor, from the [place] facility where the Encounter took place. Date/Time Current Smoking Status Comment Facil ity Feb 27, 2022 09:00 AM VA-TOBACCO NEVER USED [facility] Tobacco Use History This section includes a history of the smoking, or tobacco-related health factors, that were collected on or before the date of the Encounter. The data comes from the [place] facility where the Encounter took place. Date/Time [...] 2001 10:[address]MOKER [facility] Advance Directives: All historical and current Section [...] 2021 ADVANCE DIRECTIVE RICHARD DAN [facility] Encounter Notes: All associated encounter notes This section contains the clinical notes associated to the Encounter. Date/Time Encounter Note(s) Provider Source May 14, 2023 08:01 AM TELEIMAGING NOTE: LOCAL TITLE: CONSULT Teledermatology Imaging Request STANDARD TITLE: TELEIMAGING NOTE DATE OF NOTE: MAY 14, 2023@08:01 ENTRY DATE: MAY 14, 2023@08:01:43 AUTHOR: CHAPO SCHULER COSIGNER: URGENCY: STATUS: COMPLETED Teledermatology Consult Request The patient was educated regarding the Teledermatology process at this encounter. Patient DOES consent to have images taken, viewed, and interpreted using the Teledermatology process. This consult addresses: A new condition Images: The images were acquired in clinic through traditional TeleDermatology Image acquisition. HISTORY: Prior skin history: None reported Have you had a skin cancer before? None Reported Patient reports no family history of melanoma. Taking new med/supplements: None reported Immunosuppression history: None reported Other significant history: None reported Chief Complaint: 47 yo man with development of mildly pruritic rash on R arm, L arm and back. No new soaps, detergents, medications. No one else at home with rash. No new medications. Mildly pruritic. Has been using topical calamine, taking claritin/benadryl with some help. No F/C/S. No blistering, no skin breakdown. No SOB, facial swelling. No rash on legs, face, neck. Difficult to examine rash by video, but appers red, ? slightly raised. Request telederm pictures to assist with dx, potential additional eval, treatment PROBLEM A LOCATION(S): R Mid Arm DURATION: 05/02/23 SYMPTOMS: Itch, Redness, Other:mild fever at the beginning CHANGES: Other; location TREATMENT: Yes Details: currently taking prednisone for rash. BIOPSY: No PROBLEM B: LOCATION(S): L arm DURATION: 04/29/23 SYMPTOMS: Itch, Redness CHANGES: Other; location TREATMENT: Yes Details: currently taking prednisone BIOPSY: No PROBLEM C: LOCATION(S): Trunk; lower mid back DURATION: 05/02/23 SYMPTOMS: Itch, Redness CHANGES: Other, location TREATMENT: Yes Details: currently on prednisone BIOPSY: No Rigging Man's comments: Imaged as per providers order and policy /garrick/ CHAPO SCHULER Health Aquatic Instructor Signed: 05/14/2023 08:11 [facility]
--- OUTSIDE RECORDS SUMMARY | 2024-04-14 14:02 | XMS_ITS | Encounter Summary ---
Author Name [facility] [place] Organization [place] Address [address], [place] [address] Care Team Providers Care Casting And Curing Operator Name Role Phone LUIS MIGUEL NATE Primary Care Provider Unavailabl e Selected Encounter This section includes the information on record at [place] for the Encounter. Date/Time Encounter Type Encounter Description Reason Provider Source May 15, 2023 01:23 PM Outpatient Encounter DERMATOLOGY ICD-10-CM L30.9 Dermatitis, unspecified ARVOLD,VIRGIN IA [facility] Encounter Template Text not used by [place] Assessments - Encounter Diagnoses This section includes the primary and secondary diagnoses documented for the Encounter. Date/Time Primary/Secondary Diagnosis Diagnosis Name Provider Source May 15, 2023 01:32 PM PRIMARY Dermatitis, unspecified ARVOLD,KIKI [facility] Plan of Treatment: Future Appointments (+ [...] 29, 2023 11:45 AM AMBULATORY - NONE [facility] Jul 04, 2023 03:00 PM AMBULATORY - MEDICINE [facility] Cruz [facility] Oct 24, 2023 01:15 PM AMBULATORY - NONE [facility] Lab Results: +/- [...] Range Comment May 30, 2023 11:35 AM [facility] LIVER PROFILE Specimen Type: PLASMA Comment: Tests performed on [employer] (405) SN:[id number] Ordering Provider: GRETEL NIEVES JR Report Released Date/Time: May 24, 2023 03:03 PM Reporting Lab: [facility] [address] [facility] [address] Performing Lab: [facility] [address] [facility] [address] PROTEIN, TOTAL 7.0 g/dL 6.0-8.5 ALBUMIN 3.7 g/dL 3.2-5.0 BILIRUBIN, TOTAL 0.4 mg/dL 0.2-1.2 ALKALINE PHOSPHATASE 116 U/L 40-150 ALT(SGPT) 40 U/L 7-52 AST(SGOT) 38 U/L H 5-34 FIB-4 SCORE 1.30 {index} <2.67 May 30, 2023 11:35 AM [facility] P4 GLU,BUN,CREAT,LYTES,CA Specimen Type: PLASMA Comment: Tests performed on [employer] (405) SN:[id number] Ordering Provider: GRETEL NIEVES JR Report Released Date/Time: May 24, 2023 03:03 PM Reporting Lab: [facility] [address] [facility] [address] Performing Lab: [facility] [address] [facility] [address] UREA NITROGEN 25 mg/dL 7-25 SODIUM 135 mmol/L 135-145 POTASSIUM 4.5 mmol/L 3.5-5.0 CHLORIDE 105 mmol/L 100-110 CARBON DIOXIDE 21 mmol/L 20-30 ANION GAP 9 mmol/L 4-16 GLUCOSE 90 mg/dL 65-100 CREATININE 0.86 mg/dL 0.5-1.5 CALCIUM 9.0 mg/dL 8.5-10.5 eGFR(CKD-EPI 2020) >90.0 mL/min >60 May 30, 2023 11:35 AM [facility] LIPOPROTEIN CHOLESTEROL FRACT. PANEL Specimen Type: PLASMA Comment: Tests performed on [employer] (405) SN:[id number] Ordering Provider: GRETEL NIEVES JR Report Released Date/Time: May 24, 2023 03:03 PM Reporting Lab: [facility] [address] [facility] [address] Performing Lab: [facility] [address] [facility] [address] CHOLESTEROL 173 mg/dL 0-199 TRIGLYCERIDE 44 mg/dL 0-149 HDL CHOLESTEROL 68 mg/dL >40 LDL CHOLESTEROL (CALC) 96 mg/dL 0-129 May 30, 2023 11:35 AM [facility] GLYCOHEMOGLOBIN (A1C ONLY) Specimen Type: BLOOD Comment: Tests performed on Rose Sonography Technologist (405) SN:[id number] Values obtained from A1C measurements can vary. For typical A1C assays, a reported value of 7.0 could actually be between 6.72 and 7.28 if measured by a reference method. A reported value of 9.0 could actually be between 8.73 and 9.27. Reference [email or web address] [email or web address]/CAPdat [email or web address] Ordering Provider: GRETEL NIEVES JR Report Released Date/Time: May 24, 2023 03:03 PM Reporting Lab: [facility] [address] [facility] [address] Performing Lab: [facility] [address] [facility] [address] HEMOGLOBIN A1C 5.0 4.0-5.6 May 30, 2023 11:35 AM [facility] VITAMIN B-12 Specimen Type: SERUM Comment: Tests performed on [employer] (405) SN:[id number] Ordering Provider: GRETEL NIEVES JR Report Released Date/Time: May 24, 2023 03:03 PM Reporting Lab: [facility] [address] [facility] [address] Performing Lab: [facility] [address] [facility] [address] VITAMIN B-12 905 pg/mL H 200-900 May 30, 2023 11:35 AM [facility] CBC NO DIFF Specimen Type: BLOOD No comment entered. Ordering Provider: GRETEL NIEVES JR Report Released Date/Time: May 24, 2023 03:03 PM Reporting Lab: [facility] [address] [facility] [address] Performing Lab: [facility] [address] [facility] [address] WBC 4.8 10*3/uL 4.5-11.0 RBC 4.56 10*6/uL 4.23-5.66 HGB 14.9 g/dL 12.8-17 HEMATOCRIT 43.6 39.2-50.4 MCV 95.6 fL 82-99 MCH 32.7 pg H 26.2-32.6 MCHC 34.2 g/dL 30.8-35.1 PLT 221 10*3/uL 140-360 MPV 9.3 fL 9.2-12.4 RDW 13.1 12.0-16.0 May 30, 2023 11:35 AM [facility] THYROID TESTING CASCADE Specimen Type: SERUM Comment: Tests performed on [employer] (405) SN:[id number] Ordering Provider: GRETEL NIEVES JR Report Released Date/Time: May 24, 2023 03:03 PM Reporting Lab: [facility] [address] [facility] [address] Performing Lab: [facility] [address] [facility] [address] T4,FREE 0.9 ng/dL 0.6-1.6 TSH 7.52 u[IU]/mL H 0.35-5.00 May 30, 2023 11:35 AM [facility] VIT D 25-OH([facility]) Specimen Type: SERUM Comment: Tests performed on [employer] (405) SN:[id number] Ordering Provider: GRETEL NIEVES JR Report Released Date/Time: May 24, 2023 03:03 PM Reporting Lab: [facility] [address] [facility] [address] Performing Lab: [facility] [address] [facility] [address] VIT D 25-OH(J) 39.4 ng/mL 20-50 Advance Directives: All historical [...] May 18, 2021 ADVANCE DIRECTIVE RICHARD DAN Gaston [facility] Encounter Notes: All associated encounter notes This section contains the clinical notes associated to the Encounter. Date/Time Encounter Note(s) Provider Source May 16, 2023 12:30 PM ADDENDUM: LOCAL TITLE: Addendum STANDARD TITLE: ADDENDUM DATE OF NOTE: MAY 16, 2023@12:30:37 ENTRY DATE: MAY 16, 2023@12:30:37 AUTHOR: ONEL CALABRESE EXP COSIGNER: URGENCY: STATUS: COMPLETED Note he is on multiple photosensitizing medications, especially HCTZ, and needs to be extremely cautious about high level sun protection. Areas of almost geometric cut off suggest possible contact or photosensitive drug. Lower on DDX is resolving atypical viral exanthem. Does not appear like Lyme but given h/o fever, rash in endemic area, would check ROS and if any concern consider Lyme titer. /garrick/ ONEL CALABRESE DERMATOLOGY ATTENDING PHYSICIAN Signed: 05/16/2023 12:34 Receipt Acknowledged By: 05/16/2023 12:47 /garrick/ KIKI CINTRON 05/16/2023 13:42 /es/ CHAOP SCHULER Health Assistant Director Of Plant Operations 05/16/2023 13:47 /garrick/ RANCHO NIEVES DORIS --- Original Document --- 05/15/23 CONSULT Teledermatology Imaging Report: HISTORY: 47 yo male with mildly pruritic rash spreading from arms to back x 2 weeks; help with topical benadryl, calamine and now prednisone (cannot find notes in CPRS stating when he started this and how he obtained). Sec msg indicating this happens every summer. No changes to his antiseizure meds. Recently dental visit since rash started but not on ABX. Brief fever (?) and viral symptoms. OVERALL CONSULT/IMAGE QUALITY: Fully satisfactory EXAM: right medial arm, left upper lateral arm: faint dull pink nonscaly superficial papules coalescing into plaques lower to mid back: few scattered salmon colored nonscaly superficial plaques IMPRESSION BASED ON IMAGES AND INFORMATION REVIEWED: PROBLEM A: Diagnosis: DDX allergic contact dermatitis, hypersensitivity disorder vs pityriasis rosaea, tinea corporis; doubt PMLE (occurs in summer time) RECOMMENDATIONS FOR REFERRING PROVIDER: PROBLEM A: Medication: triamcinolone oint BID prn to areas with rash -continue predisone taper if helping Skin Care recommendations: use gentle soaps such as Cetaphil or Dove for SS bar soap -avoid fabric softeners and use ALL free and clear detergents -consider using topical antifungal if TAC oint is making this worse -consider oral histamines to help with sleep including Benadryl or hydroxyzine at night RECOMMENDED FOLLOW-UP: Primary Care follow up Nature/Type of Follow-up: as needed if not resolving Cumulative time of review and management: 5 minutes or more -16 min -please hold off on informing pt until Dr. Calabrese has cosigned this herbie /garrick/ KIKI CINTRON Signed: 05/15/2023 13:33 /garrick/ ONEL CALABRESE DERMATOLOGY ATTENDING PHYSICIAN Cosigned: 05/16/2023 12:35 ONEL CALABRESE [facility] May 15, 2023 01:23 PM TELEIMAGING REPORT : LOCAL TITLE: CONSULT Teledermatology Imaging Report STANDARD TITLE: TELEIMAGING REPORT DATE OF NOTE: MAY 15, 2023@13:23 ENTRY DATE: MAY 15, 2023@13:23:31 AUTHOR: KIKI CADENA COSIGNER: ONEL CALABRESE URGENCY: STATUS: COMPLETED CONSULT Teledermatology Imaging Report Has ADDENDA HISTORY: 47 yo male with mildly pruritic rash spreading from arms to back x 2 weeks; help with topical benadryl, calamine and now prednisone (cannot find notes in CPRS stating when he started this and how he obtained). Sec msg indicating this happens every summer. No changes to his antiseizure meds. Recently dental visit since rash started but not on ABX. Brief fever (?) and viral symptoms. OVERALL CONSULT/IMAGE QUALITY: Fully satisfactory EXAM: right medial arm, left upper lateral arm: faint dull pink nonscaly superficial papules coalescing into plaques lower to mid back: few scattered salmon colored nonscaly superficial plaques IMPRESSION BASED ON IMAGES AND INFORMATION REVIEWED: PROBLEM A: Diagnosis: DDX allergic contact dermatitis, hypersensitivity disorder vs pityriasis rosaea, tinea corporis; doubt PMLE (occurs in summer time) RECOMMENDATIONS FOR REFERRING PROVIDER: PROBLEM A: Medication: triamcinolone oint BID prn to areas with rash -continue predisone taper if helping Skin Care recommendations: use gentle soaps such as Cetaphil or Dove for SS bar soap -avoid fabric softeners and use ALL free and clear detergents -consider using topical antifungal if TAC oint is making this worse -consider oral histamines to help with sleep including Benadryl or hydroxyzine at night RECOMMENDED FOLLOW-UP: Primary Care follow up Nature/Type of Follow-up: as needed if not resolving Cumulative time of review and management: 5 minutes or more -16 min -please hold off on informing pt until Dr. Calabrese has cosigned this note /garrick/ KIKI CINTRON Signed: 05/15/2023 13:33 /garrick/ ONEL CALABRESE DERMATOLOGY ATTENDING PHYSICIAN Cosigned: 05/16/2023 12:35 05/16/2023 ADDENDUM STATUS: COMPLETED Note he is on multiple photosensitizing medications, especially HCTZ, and needs to be extremely cautious about high level sun protection. Areas of almost geometric cut off suggest possible contact or photosensitive drug. Lower on DDX is resolving atypical viral exanthem. Does not appear like Lyme but given h/o fever, rash in endemic area, would check ROS and if any concern consider Lyme titer. /garrick/ ONEL CALABRESE DERMATOLOGY ATTENDING PHYSICIAN Signed: 05/16/2023 12:34 Receipt Acknowledged By: * AWAITING SIGNATURE * KIKI CADENA * AWAITING SIGNATURE * CHAPO SCHULER * AWAITING SIGNATURE * BROTHERS,KIKI LOPEZ JR [facility]
--- OUTSIDE RECORDS SUMMARY | 2024-04-14 14:02 | XMS_ITS | Encounter Summary ---
Author Name [facility] [place] Address [address] [facility], [place] [address] Care Team Providers Care Lease Operator Name Role Phone NATE BOLANOS Primary Care Provider Unavailabl e Selected Encounter This section includes the information on record at [place] for the Encounter. Date/Time Encounter Type Encounter Description Reason Pro vider Source May 07, 2023 03:40 PM Outpatient Encounter TELEPHONE TRIAGE IHE Encounter Template Text not used by [...] Appointment Type Appointme nt Facility Name May 08, 2023 09:30 AM AMBULATORY - MEDICINE [facility] May 08, 2023 10:00 AM AMBULATORY - REHAB MEDICIN E [facility] May 08, 2023 02:30 PM [facility] - MEDICINE [facility] May 14, 2023 08:00 AM AMBULATORY - MEDICINE [facility] May 29, 2023 11:45 AM AMBULATORY - NONE [facility] Jul 04, 2023 03:00 PM AMBULATORY - MEDICINE [facility] Cruz [facility] Oct 24, 2023 01:15 PM AMBULATORY - NONE [facility] Lab Results: +/- 30 days of [...] May 24, 2023 03:03 PM Reporting Lab: [facility] [address] [address] Performing Lab: [facility] [address] [address] WBC 4.8 10*3/uL 4.5-11.0 RBC 4.56 10*6/uL 4.23-5.66 HGB 14.9 g/dL 12.8-17 HEMATOCRIT 43.6 39.2-50.4 MCV 95.6 fL 82-99 MCH 32.7 pg H 26.2-32.6 MCHC 34.2 g/dL 30.8-35.1 PLT 221 10*3/uL 140-360 MPV 9.3 fL 9.2-12.4 RDW 13.1 12.0-16.0 May 30, 2023 11:35 AM [facility] P4 GLU,BUN,CREAT,LYTES,CA Specimen Type: PLASMA Comment: Tests performed on Adaptive Digital Power (405) SN:[id number] Ordering Provider: GRETEL NIEVES JR Report Released Date/Time: May 24, 2023 03:03 PM Reporting Lab: [facility] [address] [address] Performing Lab: [facility] [address] [address] UREA NITROGEN 25 mg/dL 7-25 SODIUM 135 [...] Type: PLASMA Comment: Tests performed on Rose RoomClip (405) SN:[id number] Ordering Provider: GRETEL NIEVES JR Report Released Date/Time: May 24, 2023 03:03 PM [facility] [address] [address] Performing Lab: [facility] [address] [address] CHOLESTEROL 173 mg/dL 0-199 TRIGLYCERIDE 44 mg/dL 0-149 HDL CHOLESTEROL 68 mg/dL >40 LDL CHOLESTEROL (CALC) 96 mg/dL 0-129 May 30, 2023 11:35 AM [facility] LIVER PROFILE Specimen Type: PLASMA Comment: Tests performed on Adaptive [employer] Power (405) SN:[id number] Ordering Provider: GRETEL NIEVES JR Report Released Date/Time: May 24, 2023 03:03 PM Reporting Lab: [facility] [address] [address] Performing Lab: [facility] [address] [address] PROTEIN, TOTAL 7.0 g/dL 6.0-8.5 ALBUMIN 3.7 g/dL 3.2-5.0 BILIRUBIN, TOTAL 0.4 mg/dL 0.2-1.2 ALKALINE PHOSPHATASE 116 U/L 40-150 ALT(SGPT) 40 U/L 7-52 AST(SGOT) 38 U/L H 5-34 FIB-4 SCORE 1.30 {index} <2.67 May 30, 2023 11:35 AM [facility] GLYCOHEMOGLOBIN (A1C ONLY) Specimen Type: BLOOD Comment: Tests performed on Rose RoomClip (405) SN:[id number] Values obtained from A1C measurements can vary. For typical A1C assays, a reported value of 7.0 could actually be between 6.72 and 7.28 if measured by a reference method. A reported value of 9.0 could actually be between 8.73 and 9.27. Reference [email or web address].ng [email or web address] a.[email or web address] Ordering Provider: GRETEL NIEVES JR Report Released Date/Time: May 24, 2023 03:03 PM Reporting Lab: [facility] [address] [address] Performing Lab: [facility] [address] [address] HEMOGLOBIN A1C 5.0 4.0-5.6 May 30, 2023 11:35 AM [facility] THYROID TESTING CASCADE Specimen Type: SERUM Comment: Tests performed on Rose Freight Checker (405) SN:[id number] Ordering Provider: GRETEL NIEVES JR Report Released Date/Time: May 24, 2023 03:03 PM Reporting Lab: [facility] [address] [address] Performing Lab: [facility] [address] [address] T4,FREE 0.9 ng/dL 0.6-1.6 TSH 7.52 u[IU]/mL H 0.35-5.00 May 30, 2023 11:35 AM [facility] VITAMIN B-12 Specimen Type: SERUM Comment: Tests performed on Rose Freight Checker (405) SN:[id number] Ordering Provider: GRETEL NIEVES JR Report Released Date/Time: May 24, 2023 03:03 PM Reporting Lab: [facility] [address] [address] Performing Lab: [facility] [address] [address] VITAMIN B-12 905 pg/mL H 200-900 May 30, 2023 11:35 AM [facility] VIT D 25-OH([facility]) Specimen Type: SERUM Comment: Tests performed on Rose Freight Checker (405) SN:[id number] Ordering Provider: GRETEL NIEVES JR Report Released Date/Time: May 24, 2023 03:03 PM Reporting Lab: [facility] [address] [address] Performing Lab: [facility] [address] [address] VIT D 25-OH([facility]) 39.4 ng/mL 20-50 Advance [...] Encounter. Date/Time Encounter Note(s) Provider Source May 07, 2023 03:42 PM PRIMARY CARE ADMIN ISTRATIVE NOTE: LOCAL TITLE: Administrative Note/Primary Care STANDARD TITLE: PRIMARY CARE ADMINISTRATIVE NOTE DATE OF NOTE: MAY 07, 2023@15:42 ENTRY DATE: MAY 07, 2023@15:42:07 AUTHOR: LYUBOV SWANN EXP COSIGNER: URGENCY: STATUS: COMPLETED Administrative Note/Primary Care Has ADDENDA [place] left [facility] stating he would like an appointment to see someone - he has a rash all over his body - no other symptoms just the rash # [phone] thank you. /garrick/ LYUBOV GUZMAN Signed: 05/07/2023 15:43 Receipt Acknowledged By: 05/07/2023 15:55 /garrick/ CARROLL PETTY LPN 05/07/2023 16:23 /garrick/ IGNACIO ROSENBERG RN 05/07/2023 ADDENDUM STATUS: COMPLETED Attempted to contact unsuccessful Message is not left on voicemail as it identified as miguelito PAtient is due to come in tommorrow for PT can be added to the Nurses schedule to be assessed. /garrick/ CARROLL PETTY LPN Signed: 05/07/2023 15:54 LYUBOV SWANN [facility]
--- OUTSIDE RECORDS SUMMARY | 2024-04-14 14:02 | XMS_ITS | Encounter Summary ---
Author Name [facility] [place] Organization [facility] [place] Address [address] [facility] [facility], [place] [address] Care Team Providers Care Thermometer Maker Name Role Phone NATE BOLANOS Primary Care Provider Unavailabl e Selected Encounter This section includes the information on record at [place] for the Encounter. Date/Time Encounter Type Encounter Description Reason Provider Source May 08, 2023 02:30 PM OFFICE O/P EST LOW 20-29 MIN PRIMARY CARE/MEDICINE ICD-10-CM L50.9 Urticaria, unspecified VRAKATITSIS,KE RRY IHE Encounter Template Text not used by [place] Assessments - Encounter Diagnoses This section includes the primary and secondary diagnoses documented for the Encounter. Date/Time Primary/Secondary Diagnosis Diagnosis Name Provider Source May 08, 2023 03:56 PM PRIMARY Urticaria, unspecified VANCEEN COLBYKIMBERLEEMIREILLE ARELLANO [facility] Plan of Treatment: Future Appointments (+ [...] 14, 2023 08:00 AM AMBULATORY - MEDICINE [facility] May 29, 2023 11:45 AM AMBULATORY - NONE [facility] Jul 04, 2023 03:00 PM AMBULATORY - MEDICINE [facility] Cruz [facility] Oct 24, 2023 01:15 PM AMBULATORY - NONE [facility] Lab Results: +/- 30 days of the encounter This section includes the Chemistry and Hematology Lab Results on record with [place] for the patient. Radiology Reports and Pathology Reports are provided separately, in subsequent sections. Lab Results This section contains the Chemistry/Hematology Results that were resulted 30 days before or 30 daysafter the date of the Encounter. Date/Time Source Result Type Result - Unit Interpretation Reference Range Comment May 30, 2023 11:35 AM [facility] CBC NO DIFF Specimen Type: BLOOD No comment entered. Ordering Provider: GRETEL NIEVES JR Report Released Date/Time: May 24, 2023 03:03 PM Reporting Lab: [facility] [address] [facility] [address] Performing Lab: [facility] [address] [facility] [address] WBC 4.8 10*3/uL 4.5-11.0 RBC 4.56 10*6/uL 4.23-5.66 HGB 14.9 g/dL 12.8-17 HEMATOCRIT 43.6 39.2-50.4 MCV 95.6 fL 82-99 MCH 32.7 pg H 26.2-32.6 MCHC 34.2 g/dL 30.8-35.1 PLT 221 10*3/uL 140-360 MPV 9.3 fL 9.2-12.4 RDW 13.1 12.0-16.0 May 30, 2023 11:35 AM [facility] LIVER PROFILE Specimen Type: PLASMA Comment: Tests performed on Brideside (405) SN:[id number] Ordering Provider: GRETEL NIEVES JR Report Released Date/Time: May 24, 2023 03:03 PM Reporting Lab: [facility] [address] [facility] [address] Performing Lab: [facility] [address] [facility] [address] PROTEIN, TOTAL 7.0 g/dL 6.0-8.5 ALBUMIN 3.7 g/dL 3.2-5.0 BILIRUBIN, TOTAL 0.4 mg/dL 0.2-1.2 ALKALINE PHOSPHATASE 116 U/L 40-150 ALT(SGPT) 40 U/L 7-52 AST(SGOT) 38 U/L H 5-34 FIB-4 SCORE 1.30 {index} <2.67 May 30, 2023 11:35 AM [facility] P4 GLU,BUN,CREAT,LYTES,CA Specimen Type: PLASMA Comment: Tests performed on Rose Kidizen (405) SN:[id number] Ordering Provider: GRETEL NIEVES JR Report Released Date/Time: May 24, 2023 03:03 PM Reporting Lab: [facility] [address] [facility] [address] Performing Lab: [facility] [address] [facility] [address] UREA NITROGEN 25 mg/dL 7-25 SODIUM 135 mmol/L 135-145 POTASSIUM 4.5 mmol/L 3.5-5.0 CHLORIDE 105 mmol/L 100-110 CARBON DIOXIDE 21 mmol/L 20-30 ANION GAP 9 mmol/L 4-16 GLUCOSE 90 mg/dL 65-100 CREATININE 0.86 mg/dL 0.5-1.5 CALCIUM 9.0 mg/dL 8.5-10.5 eGFR(CKD-EPI 2020) >90.0 mL/min >60 May 30, 2023 11:35 AM [facility] LIPOPROTEIN CHOLESTEROL FRACT. PANEL Specimen Type: PLASMA Comment: Tests performed on Rose Kidizen (405) SN:[id number] Ordering Provider: GRETEL NIEVES JR Report Released Date/Time: May 24, 2023 03:03 PM Reporting Lab: [facility] [address] [facility] [address] Performing [facility]: [facility] [address] [facility] [address] CHOLESTEROL 173 mg/dL 0-199 TRIGLYCERIDE 44 mg/dL 0-149 HDL CHOLESTEROL 68 mg/dL >40 LDL CHOLESTEROL (CALC) 96 mg/dL 0-129 May 30, 2023 11:35 AM [facility] GLYCOHEMOGLOBIN (A1C ONLY) Specimen Type: BLOOD Comment: Tests performed on Rose Project Buyer (405) SN:[id number] Values obtained from A1C measurements can vary. [...] [facility] [address] [facility] [address] Performing Lab: [facility] [address] [facility] [address] HEMOGLOBIN A1C 5.0 4.0-5.6 May 30, 2023 11:35 AM [facility] VIT D 25-OH([facility]) Specimen Type: SERUM Comment: Tests performed on Rose Project Buyer (405) SN:[id number] Ordering Provider: GRETEL NIEVES JR Report Released Date/Time: May 24, 2023 03:03 PM Reporting Lab: [facility] [address] [facility] [address] Performing Lab: [facility] [address] [facility] [address] VIT D 25-OH([facility]) 39.4 ng/mL 20-50 May 30, 2023 11:35 AM [facility] VITAMIN B-12 Specimen Type: SERUM Comment: Tests performed on Rose Project Buyer (405) SN:[id number] Ordering Provider: GRETEL NIEVES JR Report Released Date/Time: May 24, 2023 03:03 PM Reporting Lab: [facility] [address] [facility] [address] Performing Lab: [facility] [address] [facility] [address] VITAMIN B-12 905 pg/mL H 200-900 May 30, 2023 11:35 AM [facility] THYROID TESTING CASCADE Specimen Type: SERUM Comment: Tests performed on Rose Project Buyer (405) SN:[id number] Ordering Provider: GRETEL NIEVES JR Report Released Date/Time: May 24, 2023 03:03 PM Reporting Lab: [facility] [address] [facility] [address] Performing Lab: [facility] [address] [facility] [address] T4,FREE 0.9 ng/dL 0.6-1.6 TSH 7.52 u[IU]/mL [...] Encounter Note(s) Provider Source May 08, 2023 01:44 PM TELEHEALTH NOTE: LOCAL TITLE: VIDEO-CONNECT NOTE STANDARD TITLE: TELEHEALTH NOTE DATE OF NOTE: MAY 08, 2023@13:44 ENTRY DATE: MAY 08, 2023@13:45:15 AUTHOR: KIMBERLEE RUIZ COSIGNER: MARILYN POWELL URGENCY: STATUS: COMPLETED VIDEO-CONNECT NOTE Has ADDENDA [place] appointment: Provider confirmed that [place] is currently located at the following address listed in their [facility] chart. [address] [place] [phone] e-911: Call [phone] to speak with an agent who can put you in touch with a hydraulic bull riveter operator at the Patient's location. You must have the physical location (address) where the Patient is currently located. Verbal informed consent has been obtained. Time lead recreation assistant: 2:24pm Time off call: 2:56pm Patient location: Home Provider location: office Modality: Telehealth video visit The patient has provided consent for telephone and/or video visit. He/she expresses understanding that this visit takes the place of an in-office consultation for this problem and he may request an in person visit in the future for this problem if needed. ID: Mr. Bismark Mar is a 47 MALE REASON FOR VISIT: Rash Active problems - Computerized Problem List is the source for the followin. Low back pain 2. Varicose veins 3. Pain of right knee joint 4. Essential hypertension 5. Epilepsy 6. AF- Atrial Fibrillation [facility] [id number]) 7. Cardiomyopathy 8. Mitral valve regurgitation 9. Obstructive sleep apnea syndrome 10. GERD - Gastro-Esophageal Reflux Disease ([facility] [id number]) 11. Depressive disorder 12. Genital warts 13. Family History of Psychiatric Condition 14. Family History of Diabetes Mellitus 15. Hypothyroidism (SNOMED CT [id number]) SUBJECTIVE: # Rash appeared Sunday. Only thing patient could think of is that since he is on dilantin, he should have taken an abx for dental appointment on sunday the but did not have any. The rash started on R arm on Sunday at 5-6pm, went away and then showed up on his L arm. Now on his hand a bit and back on the R arm. Doesn't itch too bad but if he sweats or gets warm he feels it. Overall not too bad. Took benedryl and anti itch cream. GF aminah hughes around it and it didn't grow past the borders but moved to a different area. faded from original spot. Never went below torso. Not painful. Not on face and no facial swelling. Denies new medications, foods, supplements, detergents, soaps, etc. No one else around is having similar symptoms. sun/ trouble sleeping, now taking benedryl. Sunday felt hot and sick that day. Feels like he might have had a fever on sunday but temperature was 96 degrees, he took it with fitbit. One day of diarrhea, anorexia, a bit of a sore throat. Oral benedryl, claritin, calamine lotion. ROS As above RELEVANT SOCIAL HISTORY deferred Active Outpatient Medications (excluding Supplies): Active Outpatient [...] (EQV-TIAZAC) 360MG 24HR CAP TAKE ONE ACTIVE (S) CAPSULE BY MOUTH EVERY DAY FOR HEART RATE/BLOOD PRESSURE 5) FAMOTIDINE 20MG TAB TAKE ONE TABLET BY MOUTH TWICE A ACTIVE (S) DAY FOR STOMACH ACID 6) HYDROCHLOROTHIAZIDE 12.5MG TAB TAKE ONE TABLET BY ACTIVE (S) MOUTH EVERY MORNING TO REMOVE FLUID/CONTROL BLOOD PRESSURE 7) LAMOTRIGINE 100MG TAB TAKE THREE TABLETS BY MOUTH ACTIVE (S) EVERY MORNING AND TAKE FOUR TABLETS EVERY EVENING ### 8) LEVOTHYROXINE NA (SYNTHROID) 200MCG TAB TAKE ONE ACTIVE TABLET BY MOUTH EVERY MORNING FOR THYROID HALF-HOUR BEFORE FOOD INCREASE IN DOSE 9) LISINOPRIL 5MG TAB TAKE ONE TABLET BY MOUTH EVERY DAY ACTIVE (S) TO CONTROL BLOOD PRESSURE 10) MELATONIN 5MG [...] TAKE ONE TABLET BY MOUTH AT ACTIVE (S) BEDTIME FOR INSOMNIA MAY TAKE ONE ADDITIONAL TABLET NEEDED 14) TRIAMCINOLONE ACETONIDE 0.1% OINT APPLY SMALL AMOUNT ACTIVE (S) TOPICALLY TWICE DAILY NEEDED FOR DERMATITIS OBJECTIVE: No vital signs were taken for this visit Gen: No acute distress PULM:Breathing comfortably on ambient air, no cough Derm: areas of rash on bilateral arms flexoral and extensor surfaces, on L lower abdomen and on back between shoulder blades and lower back. Resolution not clear enough to fully characterize lesions. Raised erythematous patches. IMPRESSION: #New Rash From limited views of rash, seems most consistent with urticarial rash. History and limited exam seem inconsistent with acute contact dermatitis. Not consistent with maculopapular rash related to viral exanthem. Not petechial concerning for vasculitis. Patient is on lamotrigine and phenytoin but has been for years and rash is not consistent with DRESS syndrome and he is not having other systemic symptoms. -Continue with claritin, benedryl, and topical calamine. Will send in for [place] telederm pictures to be taken. Discussed warning signs that should warrant emergent care. Advised to take a covid test. All patient questions were answered. Patient endorsed understanding agreement with the plan. /garrick/ KIMBERLEE BOWMAN Resident Physician Signed: 05/08/2023 15:56 /garrick/ MARILYN POWELL MD Staff Cosigned: 05/08/2023 16:40 05/08/2023 ADDENDUM STATUS: COMPLETED Patient reviewed at time of visit. Jacob portions of history/PE repeated. Unclear etiology or rash (difficult to visualize in detail by video). Patient appeared well on exam, NAD. Continue current medications. Consult for telederm ordered. Patient is aware of signs/sx to seek urgent reeval for. /garrick/ MARILYN POWELL MD Staff Signed: 05/08/2023 16:55 KIMBERLEE RUIZ [facility]
--- OUTSIDE RECORDS SUMMARY | 2024-04-14 14:02 | XMS_ITS ---
Author Name [facility] [place] Organization [facility] [place] [place] Address [address] [place] [address] Care Team Providers Care Peripatologist Name Role Phone LUIS MIGUELNATE Primary Care Provider Unavailabl e Selected Encounter This section includes the information on record at [place] for the Encounter. Date/Time Encounter Type Encounter Description Reason Pro vider Source May 09, 2023 08:21 AM Outpatient Encounter ADMIN PAT ACTIVTIES (SANDEEPNONCT) IHE Encounter Template Text not used by [place] Plan of Treatment: Future Appointments (+ 6 months) and Future Tests (+/- 45 days) The Plan of Treatment section includes future care activities for the patient from all [place] treatmentfacilities. This section includes future appointments and future orders which are active, pending or scheduled. Future Appointments This section includes appointments that were scheduled to occur 6 months from the date of the Encounter, up to a maximum of 20 appointments. The data comes from all [place] treatment facilities. Appointment Date/Time Appointment Type Appointme nt Facility Name May 14, 2023 08:00 AM AMBULATORY - MEDICINE [facility] May 29, 2023 11:45 AM AMBULATORY - NONE [facility] Jul 04, 2023 03:00 PM AMBULATORY - MEDICINE AZALEA Cruz [facility] Oct 24, 2023 01:15 PM AMBULATORY - NONE [facility] Lab Results: +/- 30 days of the encounter This section includes the Chemistry and Hematology Lab Results on record with [place] for the patient. Radiology Reports and Pathology Reports are provided separately, in subsequent sections. Lab Results This section contains the Chemistry/Hematology Results that were resulted 30 days before or 30 daysafter the date of the Encounter. Date/Time Source Result Type Result - Unit Interpretation Reference Range Comment May 30, 2023 11:[address] [facility] CBC NO DIFF Specimen Type: BLOOD No comment entered. Ordering Provider: GRETEL NIEVES JR Report Released Date/Time: May 24, 2023 03:03 PM Reporting Lab: [facility] [address] [facility] [address] Performing Lab: [facility] [address] [facility] [address] [address] WBC 4.8 10*3/uL 4.5-11.0 RBC 4.56 10*6/uL 4.23-5.66 HGB 14.9 g/dL 12.8-17 HEMATOCRIT 43.6 39.2-50.4 MCV 95.6 fL 82-99 MCH 32.7 pg H 26.2-32.6 MCHC 34.2 g/dL 30.8-35.1 PLT 221 10*3/uL 140-360 MPV 9.3 fL 9.2-12.4 RDW 13.1 12.0-16.0 May 30, 2023 11:[address] [facility] LIPOPROTEIN CHOLESTEROL FRACT. PANEL Specimen Type: PLASMA Comment: Tests performed on [employer] (405) SN:[id number] Ordering Provider: GRETEL NIEVES JR Report Released Date/Time: May 24, 2023 03:03 PM Reporting Lab: [facility] [address] [facility] [facility] [address] Performing Lab: [facility] [address] [facility] [address] [address] CHOLESTEROL 173 mg/dL 0-199 TRIGLYCERIDE 44 mg/dL 0-149 HDL CHOLESTEROL 68 mg/dL >40 LDL CHOLESTEROL (CALC) 96 mg/dL 0-129 May 30, 2023 11:35 AM [facility] P4 GLU,BUN,CREAT,LYTES,CA Specimen Type: PLASMA Comment: Tests performed on [employer] (405) SN:[id number] Ordering Provider: GRETEL NIEVES JR Report Released Date/Time: May 24, 2023 03:03 PM Reporting Lab: [facility] [address] [facility] [address] Performing Lab: [facility] [address] [facility] [address] [address] UREA NITROGEN 25 mg/dL 7-25 SODIUM 135 mmol/L 135-145 POTASSIUM 4.5 mmol/L 3.5-5.0 CHLORIDE 105 mmol/L 100-110 CARBON DIOXIDE 21 mmol/L 20-30 ANION GAP 9 mmol/L 4-16 GLUCOSE 90 mg/dL 65-100 CREATININE 0.86 mg/dL 0.5-1.5 CALCIUM 9.0 mg/dL 8.5-10.5 eGFR(CKD-EPI 2020) >90.0 mL/min >60 May 30, 2023 11:[address] [facility] LIVER PROFILE Specimen Type: PLASMA Comment: Tests performed on [employer] (405) SN:[id number] Ordering Provider: GRETEL NIEVES JR Report Released Date/Time: May 24, 2023 03:03 PM Reporting Lab: [facility] [address] [facility] [address] Performing Lab: [facility] [address] [address] PROTEIN, TOTAL 7.0 g/dL 6.0-8.5 ALBUMIN 3.7 g/dL 3.2-5.0 BILIRUBIN, TOTAL 0.4 mg/dL 0.2-1.2 ALKALINE PHOSPHATASE 116 U/L 40-150 ALT(SGPT) 40 U/L 7-52 AST(SGOT) 38 U/L H 5-34 FIB-4 SCORE 1.30 {index} <2.67 May 30, 2023 11:[address] [facility] GLYCOHEMOGLOBIN (A1C ONLY) Specimen Type: BLOOD Comment: Tests performed on [employer] (405) SN:[id number] Values obtained from A1C measurements can vary. For typical A1C assays, a reported value of 7.0 could actually be between 6.72 and 7.28 if measured by a reference method. A reported value of 9.0 could actually be between 8.73 and 9.27. Reference http://www.ng sp.org/CAPdat a.asp Ordering Provider: GRETEL NIEVES JR Report Released Date/Time: May 24, 2023 03:03 PM Reporting Lab: [facility] [address] [facility] [address] Performing Lab: [facility] [address] [facility] [address] HEMOGLOBIN A1C 5.0 4.0-5.6 May 30, 2023 11:[address] [facility] VITAMIN B-12 Specimen Type: SERUM Comment: Tests performed on [employer] (405) SN:[id number] Ordering Provider: GRETEL NIEVES JR Report Released Date/Time: May 24, 2023 03:03 PM Reporting Lab: [facility] [address] [facility] [address] Performing Lab: [facility] [address] [facility] [address] VITAMIN B-12 905 pg/mL H 200-900 May 30, 2023 11:[address] [facility] THYROID TESTING CASCADE Specimen Type: SERUM Comment: Tests performed on [employer] (405) SN:[id number] Ordering Provider: GRETEL NIEVES JR Report Released Date/Time: May 24, 2023 03:03 PM Reporting Lab: [facility] [address] [facility] [address] Performing Lab: [facility] [address] [facility] [address] T4,FREE 0.9 ng/dL 0.6-1.6 TSH 7.52 u[IU]/mL H 0.35-5.00 May 30, 2023 11:[address] [facility] VIT D 25-OH(WRJ) Specimen Type: SERUM Comment: Tests performed on [employer] (405) SN:[id number] Ordering Provider: GRETEL NIEVES JR Report Released Date/Time: May 24, 2023 03:03 PM Reporting Lab: [facility] [address] [facility] [address] Performing Lab: [facility] [address] [facility] [address] VIT D 25-OH(WRJ) 39.4 ng/mL 20-50 Advance Directives: All historical and current Section Date Range: From patient's date of to the date document was created. This section includes ALL of a patient's completed or amended [place] Advance and Rescinded Directives. The entries below indicate that a directive exists for the patient, but an actual copy is not included with this document. The data comes from all [place] facilities. Date Advance Directives Provider Source May 18, 2021 ADVANCE DIRECTIVE RICHARD DAN MARY BETH B[facility] Encounter Notes: All associated encounter notes This section contains the clinical notes associated to the Encounter. Date/Time Encounter Note(s) Provider Source May 09, 2023 08:21 AM ADMINISTRATIVE NOT E: LOCAL TITLE: Administrative Note/Telehealth STANDARD TITLE: ADMINISTRATIVE NOTE DATE OF NOTE: MAY 09, 2023@08:21 ENTRY DATE: MAY 09, 2023@08:21:32 AUTHOR: CHAPO SCHULER COSIGNER: URGENCY: STATUS: COMPLETED Call out to patient to schedule TH TELEDERMATOLOGY appointment. No answer at this time. left with contact information, hours of operation and request for return call back to . Please forward to when patient returns call. Thank you. /garrick/ CHAPO SCHULER [facility] Assistant Signed: 05/09/2023 08:22 [facility]
--- OUTSIDE RECORDS SUMMARY | 2024-04-14 14:02 | XMS_ITS | Encounter Summary ---
Author Name [facility] [place] [facility] [place] Address [address] [facility], [place] [address] Care Team Providers Care Reliability Technologist Name Role Phone LUIS MIGUEL NATE Primary Care Provider Sridhar e Selected Encounter This section includes the information on record at [place] for the Encounter. Date/Time Encounter Type Encounter Description Reason Provider Source May 24, 2023 02:05 PM Outpatient Encounter PRIMARY CARE/MEDICINE RANCHO NIEVES JR Cruz Encounter Template Text not used by [place] [...] 03:00 PM AMBULATORY - MEDICINE AZALEA BOWEN [facility] Oct 24, 2023 01:15 PM AMBULATORY - NONE [facility] Lab Results: +/- 30 days of the encounter This section includes the Chemistry and Hematology Lab Results on record with [place] for the patient. Radiology Reports and Pathology [...] PM Reporting [facility]: [facility] [address] [facility] [address] Performing Lab: [facility] [address] [facility] [address] WBC 4.8 10*3/uL 4.5-11.0 RBC 4.56 10*6/uL 4.23-5.66 HGB 14.9 g/dL 12.8-17 HEMATOCRIT 43.6 39.2-50.4 MCV 95.6 fL 82-99 MCH 32.7 pg H 26.2-32.6 MCHC 34.2 g/dL 30.8-35.1 PLT 221 10*3/uL 140-360 MPV 9.3 fL 9.2-12.4 RDW 13.1 12.0-16.0 May 30, 2023 11:35 AM [facility] GLYCOHEMOGLOBIN (A1C ONLY) Specimen Type: BLOOD Comment: Tests performed on [employer] (405) SN:[id number] Values obtained from A1C measurements can vary. [...] PM Reporting Lab: [facility] [address] [facility] [address] Performing Lab: [facility] [address] [facility] [facility] [address] HEMOGLOBIN A1C 5.0 4.0-5.6 May 30, 2023 11:[address] [facility] LIVER PROFILE Specimen Type: PLASMA Comment: Tests performed on [employer] (405) SN:[id number] Ordering Provider: GREETL NIEVES JR Report Released Date/Time: May 24, 2023 03:03 PM Reporting Lab: [facility] [address] [facility] [address] Performing Lab: [facility] [address] [facility] [facility] [address] PROTEIN, TOTAL 7.0 g/dL 6.0-8.5 ALBUMIN 3.7 g/dL 3.2-5.0 BILIRUBIN, TOTAL 0.4 mg/dL 0.2-1.2 ALKALINE PHOSPHATASE 116 U/L 40-150 ALT(SGPT) 40 U/L 7-52 AST(SGOT) 38 U/L H 5-34 FIB-4 SCORE 1.30 {index} <2.67 May 30, 2023 11:35 AM [facility] LIPOPROTEIN CHOLESTEROL FRACT. PANEL Specimen Type: PLASMA Comment: Tests performed on [employer] (405) SN:[id number] Ordering Provider: GRETEL NIEVES JR Report Released Date/Time: May 24, 2023 03:03 PM Reporting Lab: [facility] [address] [facility] [address] Performing Lab: [facility] [address] [facility] [address] CHOLESTEROL 173 mg/dL 0-199 TRIGLYCERIDE 44 mg/dL 0-149 HDL CHOLESTEROL 68 mg/dL >40 LDL CHOLESTEROL (CALC) 96 mg/dL 0-129 May 30, 2023 11:35 AM [facility] VITAMIN B-12 Specimen Type: SERUM Comment: Tests performed on [employer] (405) SN:[id number] Ordering Provider: GRETEL NIEVES JR Report Released Date/Time: May 24, 2023 03:03 PM Reporting Lab: [facility] [address] [facility] [address] Performing Lab: [facility] [address] [facility] [address] VITAMIN B-12 905 pg/mL H 200-900 May 30, 2023 11:35 AM [facility] P4 GLU,BUN,CREAT,LYTES,CA Specimen Type: PLASMA Comment: Tests performed on [employer] (405) SN:[id number] Ordering Provider: GRETEL NIEVES JR Report Released Date/Time: May 24, 2023 03:03 PM Reporting Lab: [facility] [address] [facility] [address] Performing [facility]: [facility] [address] [facility] [address] UREA NITROGEN 25 mg/dL 7-25 SODIUM 135 mmol/L 135-145 POTASSIUM 4.5 mmol/L 3.5-5.0 CHLORIDE 105 mmol/L 100-110 CARBON DIOXIDE 21 mmol/L 20-30 ANION GAP 9 mmol/L 4-16 GLUCOSE 90 mg/dL 65-100 CREATININE 0.86 mg/dL 0.5-1.5 CALCIUM 9.0 mg/dL 8.5-10.5 eGFR(CKD-EPI 2020) >90.0 mL/min >60 May 30, 2023 11:35 AM [facility] VIT D 25-OH(WRJ) Specimen Type: SERUM Comment: Tests performed on [employer] (405) SN:[id number] Ordering Provider: GRETEL NIEVES JR Report Released Date/Time: May 24, 2023 03:03 PM Reporting Lab: [facility] [address] [facility] [address] Performing Lab: [facility] [address] [facility] [address] VIT D 25-OH(J) 39.4 ng/mL 20-50 May 30, 2023 11:35 AM [facility] THYROID TESTING CASCADE Specimen Type: SERUM Comment: Tests performed on [employer] (405) SN:[id number] Ordering Provider: GRETEL NIEVES JR Report Released Date/Time: May 24, 2023 03:03 PM Reporting Lab: [facility] [address] [facility] [address] Performing Lab: [facility] [address] [facility] [address] T4,FREE 0.9 ng/dL 0.6-1.6 TSH 7.52 u[IU]/mL [...] Provider Source May 18, 2021 ADVANCE DIRECTIVE ROMAN CATHOLICRICHARD VUONGGARFIELD BOWEN [facility] Encounter Notes: All associated encounter notes This section contains the clinical notes associated to the Encounter. Date/Time Encounter Note(s) Provider Source May 24, 2023 02:05 PM PRIMARY CARE SECUR E MESSAGING: LOCAL TITLE: PRIMARY CARE SECURE MESSAGING STANDARD TITLE: PRIMARY CARE SECURE MESSAGING DATE OF NOTE: MAY 24, 2023@14:05 ENTRY DATE: MAY 24, 2023@15:05:03 AUTHOR: RANCHO NIEVES EXP COSIGNER: URGENCY: STATUS: COMPLETED ------Original Message -------- Sent: 05/21/2023 03:42 PM ET From: BISMARK MAR To: Armand NIEVES_[facility] [email or web address] Subject: General:Thyroid checked Just wondering if i should have my thyroid levels checked. It has been a long time since i have had them looked at. I am having issues that i think are related to levels. Like very tired no matter how much sleep i get. Temperature, mood, weight. Issues have got to point that worries me. Thank you Bismark Mar ------Original Message -------- Sent: 05/24/2023 03:04 PM ET From: RANCHO NIEVES To: BISMARK MAR Subject: General:Thyroid checked I have ordered labs for you. Come to the [facility] prior to noon sunday -sunday to get done, remember sunday is labor day and clinic is closed. Rancho /garrick/ RANCHO NIEVES JR, PA-C Signed: 05/24/2023 15:05 RANCHO NIEVES JR [facility]
--- OUTSIDE RECORDS SUMMARY | 2024-04-14 14:02 | XMS_ITS | Encounter Summary ---
Author Name [facility] [place] Organization [facility] [place] [facility] [place] Address [address] [place] [address] Care Team Providers Care Rfid Systems Architect Name Role Phone NATE BOLANOS Primary Care Provider Unavailabl e Selected Encounter This section includes the information on record at [place] for the Encounter. Date/Time Encounter Type Encounter Description Reason Provider Source May 08, 2023 09:30 AM OFF/OP EST JANUARY X REQ PHY/QHP PRIMARY CARE/MEDICINE ICD-10-CM Z04.9 Encounter for examination and observation for unsp reason RICHARD ROSENBERG RA [facility] Encounter Template Text not used by [place] Assessments - Encounter Diagnoses This section includes the primary and secondary diagnoses documented for the Encounter. Date/Time Primary/Secondary Diagnosis Diagnosis Name Provider Source May 08, 2023 09:47 AM PRIMARY Encounter for examination and observation for unsp reason RICHARD ROSENBERG RA [facility] Plan of Treatment: Future Appointments (+ 6 [...] 14, 2023 08:00 AM AMBULATORY - MEDICINE [facility] May 29, 2023 11:45 AM AMBULATORY - NONE [facility] Jul 04, 2023 03:00 PM AMBULATORY - MEDICINE [facility] Cruz [facility] Oct 24, 2023 01:15 PM AMBULATORY - NONE [facility] Lab Results: +/- 30 days of the encounter This section includes the Chemistry and Hematology Lab Results on record with [place] for the patient. Radiology Reports and Pathology [...] Specimen Type: PLASMA Comment: Tests performed on [employer] (405) [id number] Ordering Provider: GRETEL NIEVES JR Report Released Date/Time: May 24, 2023 03:03 PM Reporting Lab: [facility] [address] [facility] [address] Performing Lab: [facility] [address] [facility] [address] PROTEIN, TOTAL 7.0 g/dL 6.0-8.5 ALBUMIN 3.7 [...] May 24, 2023 03:03 PM Reporting Lab: [facility] [address] [facility] [address] Performing Lab: [facility] [address] [facility] [address] WBC 4.8 10*3/uL 4.5-11.0 RBC 4.56 10*6/uL 4.23-5.66 HGB 14.9 g/dL 12.8-17 HEMATOCRIT 43.6 39.2-50.4 MCV 95.6 fL 82-99 MCH 32.7 pg H 26.2-32.6 MCHC 34.2 g/dL 30.8-35.1 PLT 221 10*3/uL 140-360 MPV 9.3 fL 9.2-12.4 RDW 13.1 12.0-16.0 May 30, 2023 11:35 AM [facility] LIPOPROTEIN CHOLESTEROL FRACT. PANEL Specimen Type: PLASMA Comment: Tests performed on [employer] (405) SN:[id number] Ordering Provider: GRETEL NIEVES JR Report Released Date/Time: May 24, 2023 03:03 PM Reporting [facility]: [facility] [address] [facility] [address] Performing Lab: [facility] [address] [facility] [address] CHOLESTEROL 173 mg/dL 0-199 TRIGLYCERIDE 44 mg/dL 0-149 HDL CHOLESTEROL 68 mg/dL >40 LDL CHOLESTEROL (CALC) 96 mg/dL 0-129 May 30, 2023 11:35 AM [facility] P4 GLU,BUN,CREAT,LYTES,CA Specimen Type: PLASMA Comment: Tests performed on [employer] (405) SN:[id number] Ordering Provider: GRETEL NIEVES JR Report Released Date/Time: May 24, 2023 03:03 PM Reporting Lab: [facility] [address] [facility] [address] Performing Lab: [facility] [address] [facility] [address] UREA NITROGEN 25 mg/dL 7-25 SODIUM 135 mmol/L 135-145 POTASSIUM 4.5 mmol/L 3.5-5.0 CHLORIDE 105 mmol/L 100-110 CARBON DIOXIDE 21 mmol/L 20-30 ANION GAP 9 mmol/L 4-16 GLUCOSE 90 mg/dL 65-100 CREATININE 0.86 mg/dL 0.5-1.5 CALCIUM 9.0 mg/dL 8.5-10.5 eGFR(CKD-EPI 2020) >90.0 mL/min >60 May 30, 2023 11:35 AM [facility] GLYCOHEMOGLOBIN (A1C ONLY) Specimen Type: BLOOD Comment: Tests performed on [employer] (405) SN:[id number] Values obtained from A1C measurements can vary. For typical A1C assays, a reported value of 7.0 could actually be between 6.72 and 7.28 if measured by a reference method. A reported value of 9.0 could actually be between 8.73 and 9.27. Reference http://www.ng sp.org/CAPdat a.asp Ordering Provider: GRETEL NIEVES JR Report Released Date/Time: May 24, 2023 03:03 PM Reporting Lab: [facility] [address] [facility] [address] Performing Lab: [facility] [address] [facility] [address] HEMOGLOBIN A1C 5.0 4.0-5.6 May 30, 2023 11:35 AM [facility] THYROID TESTING CASCADE Specimen Type: SERUM Comment: Tests performed on [employer] (405) SN:[id number] Ordering Provider: GRETEL NIEVES JR Report Released Date/Time: May 24, 2023 03:03 PM Reporting Lab: [facility] [address] [facility] [address] Performing Lab: [place] [address] [facility] [address] T4,FREE 0.9 ng/dL 0.6-1.6 TSH 7.52 u[IU]/mL H 0.35-5.00 May 30, 2023 11:35 AM [facility] VITAMIN B-12 Specimen Type: SERUM Comment: Tests performed on [employer] (405) SN:[id number] Ordering Provider: GRETEL NIEVES JR Report Released Date/Time: May 24, 2023 03:03 PM Reporting Lab: [facility] [address] [place] [facility] [place] [facility] [place] [address] Performing Lab: [facility] [address] [facility] [address] VITAMIN B-12 905 pg/mL H 200-900 May 30, 2023 11:35 AM [facility] VIT D 25-OH(J) Specimen Type: SERUM Comment: Tests performed on [employer] (405) SN:[id number] Ordering Provider: BROTHERS,GEOR GE A JR Report Released Date/Time: May 24, 2023 03:03 PM Reporting Lab: [facility] [address] [facility] [address] Performing Lab: [facility] [address] [facility] [address] VIT D 25-OH(WRJ) 39.4 ng/mL 20-50 Social [...] 2021 ADVANCE DIRECTIVE RICHARD DAN [facility] Encounter Notes: All associated encounter notes This section contains the clinical notes associated to the Encounter. Date/Time Encounter Note(s) Provider Source May 08, 2023 10:14 AM ADDENDUM: LOCAL TITLE: Addendum STANDARD TITLE: ADDENDUM DATE OF NOTE: MAY 08, 2023@10:14:22 ENTRY DATE: MAY 08, 2023@10:14:24 AUTHOR: IGNACIO ROSENBERG EXP COSIGNER: URGENCY: STATUS: COMPLETED vet is amenable to [facility] Resident Urgent Care visit from home device 2:30 pm May 08 /garrick/ IGNACIO ROSENBERG RN Signed: 05/08/2023 10:15 Receipt Acknowledged By: 05/08/2023 10:32 /es/ CHAPO SCHULER Health Assurance Engineer 05/08/2023 12:28 /garrick/ MARITA MOSES === --- Original Document --- 05/08/23 Certified Athletic Trainer Note: vet presenting with red rashy areas on both arms, sloso torso. Started with on cluuster area on right inner elbow area last Sunday (May 02). Rash the spread. Rash area sometimes itchy- reponds to Benadryl cream. Sometimes looks like it is resolving, but them comes back- experiences a sensation of warmth. No new detergents, soaps, meds. Has not been doing outside yard work- did move a couple of things around. Only thing vet can pinpoint as different is had dental appt last Sunday- cleaning- did not that Amoxicillin prior to dental work. Will confer with provider/consider Resident Urgent Care Visit. /garrick/ IGNACIO ROSENBERG RN Signed: 05/08/2023 09:47 05/08/2023 ADDENDUM STATUS: COMPLETED TW scheduled this [place] into the Virtual Resident clinic Tuesday 05/08 at 230pm with Eric (Preceptor/Attending) and the Residents as a VVC visit from home to clinic. VVC link has been sent to both the Provider and Patient for this visit. NOTE Pt declined This short story writer today for a VVC Compatibility Test. [...] listed. He understands to hold onto the [facility] visit links until after each virtual appt has been completed of which then he can delete once complete. This patient agreed to reminder alerts via email and text message alerts to his cell phone and understands that standard rates may apply per service provider. /garrick/ MARITA MOSES Signed: 05/08/2023 12:28 IGNACIO ROSENBERG [facility] May 08, 2023 09:40 AM PRIMARY CARE NOTE: LOCAL TITLE: Certified Athletic Trainer Note STANDARD TITLE: PRIMARY CARE NOTE DATE OF NOTE: MAY 08, 2023@09:40 ENTRY DATE: MAY 08, 2023@09:40:11 AUTHOR: IGNACIO ROSENBERG COSIGNER: URGENCY: STATUS: COMPLETED Certified Athletic Trainer Note Has ADDENDA vet presenting with red rashy areas on both arms, sloso torso. Started with on cluuster area on right inner elbow area last Sunday (May 02). Rash the spread. Rash area sometimes itchy- reponds to Benadryl cream. Sometimes looks like it is resolving, but them comes back- experiences a sensation of warmth. No new detergents, soaps, meds. Has not been doing outside yard work- did move a couple of things around. Only thing vet can pinpoint as different is had dental appt last Sunday- cleaning- did not that Amoxicillin prior to dental work. Will confer with provider/consider Resident Urgent Care Visit. /garrick/ IGNACIO ROSENBERG RN Signed: 05/08/2023 09:47 05/08/2023 ADDENDUM STATUS: COMPLETED vet is amenable to [facility] Resident Urgent Care visit from home device 2:30 pm May 08 /ayla ROSENBERG RN Signed: 05/08/2023 10:15 Receipt Acknowledged By: 05/08/2023 10:32 /garrick/ CHAPO SCHULER Health Assurance Engineer 05/08/2023 12:28 /ayla MOSES 05/08/2023 ADDENDUM STATUS: COMPLETED TW scheduled this [place] into the Virtual Resident clinic Tuesday 05/08 at 230pm with Eric (Preceptor/Attending) and the Residents as a VVC visit from home to clinic. VVC link has been sent to both the Provider and Patient for this visit. NOTE Pt declined This short story writer today for a VVC Compatibility Test. [...] listed. He understands to hold onto the [facility] visit links until after each virtual appt has been completed of which then he can delete once complete. This patient agreed to reminder alerts via email and text message alerts to his cell phone and understands that standard rates may apply per service provider. /garrick/ MARITA MOSES Signed: 05/08/2023 12:28 IGNACIO ROSENBERG [facility]
--- OUTSIDE RECORDS SUMMARY | 2024-04-14 14:03 | XMS_ITS | Encounter Summary ---
Author Name [facility] [facility] [place] Organization [facility] [place] Address [address] [place] [address] Care Team Providers Care Mind Reader Name Role Phone LUIS MIGUEL NATE Primary Care Provider Unavailabl e Selected Encounter This section includes the information on record at [place] for the Encounter. Date/Time Encounter Type Encounter Description Reason Pro vider Source May 02, 2023 04:22 PM Outpatient Encounter PRIMARY CARE/MEDICINE [facility] Encounter [...] 08, 2023 09:30 AM AMBULATORY - MEDICINE [facility] Cruz [facility] May 08, 2023 10:00 AM AMBULATORY - REHAB MEDICIN E [facility] May 08, 2023 02:30 PM AMBULATORY - MEDICINE [facility] Cruz [facility] May 14, 2023 08:00 AM AMBULATORY - MEDICINE [facility] May 29, 2023 11:45 AM AMBULATORY - NONE [facility] Jul 04, 2023 03:00 PM AMBULATORY - MEDICINE [facility] Cruz [facility] Oct 24, 2023 01:15 PM AMBULATORY - NONE [facility] Lab Results: +/- [...] Specimen Type: PLASMA Comment: Tests performed on [employer] (405) SN:[id number] Ordering Provider: GRETEL NIEVES JR Report Released Date/Time: May 24, 2023 03:03 PM Reporting Lab: [facility] [address] [facility] [address] Performing Lab: [facility] [address] [facility] [address] PROTEIN, TOTAL 7.0 g/dL 6.0-8.5 ALBUMIN 3.7 g/dL 3.2-5.0 BILIRUBIN, TOTAL 0.4 mg/dL 0.2-1.2 ALKALINE PHOSPHATASE 116 U/L 40-150 ALT(SGPT) 40 U/L 7-52 AST(SGOT) 38 U/L H 5-34 FIB-4 SCORE 1.30 {index} <2.67 May 30, 2023 11:35 AM [facility] P4 GLU,BUN,CREAT,LYTES,CA Specimen Type: PLASMA Comment: Tests performed on [employer] (405) SN:[id number] Ordering Provider: GRETEL NIEVES JR Report Released Date/Time: May 24, 2023 03:03 PM Reporting Lab: [facility] [address] [facility] [address] Performing Lab: [facility] [address] [facility] [address] UREA NITROGEN 25 mg/dL 7-25 SODIUM 135 mmol/L 135-145 POTASSIUM 4.5 mmol/L 3.5-5.0 CHLORIDE 105 mmol/L 100-110 CARBON DIOXIDE 21 mmol/L 20-30 ANION GAP 9 mmol/L 4-16 GLUCOSE 90 mg/dL 65-100 CREATININE 0.86 mg/dL 0.5-1.5 CALCIUM 9.0 mg/dL 8.5-10.5 eGFR(CKD-EPI 2020) >90.0 mL/min >60 May 30, 2023 11:35 AM [facility] CB CBC NO DIFF Specimen Type: BLOOD No comment entered. Ordering Provider: GRETEL NIEVES JR Report Released Date/Time: May 24, 2023 03:03 PM Reporting [facility]: [facility] [address] [facility] [address] Performing Lab: [facility] [address] [facility] [address] WBC 4.8 10*3/uL 4.5-11.0 RBC 4.56 10*6/uL 4.23-5.66 HGB 14.9 g/dL 12.8-17 HEMATOCRIT 43.6 39.2-50.4 MCV 95.6 fL 82-99 MCH 32.7 pg H 26.2-32.6 MCHC 34.2 g/dL 30.8-35.1 PLT 221 10*3/uL 140-360 MPV 9.3 fL 9.2-12.4 RDW 13.1 12.0-16.0 May 30, 2023 11:35 AM [facility] LIPOPROTEIN CHOLESTEROL FRACT. PANEL Specimen Type: PLASMA Comment: Tests performed on [employer] (405) SN:[id number] Ordering Provider: GRETEL NIEVES JR Report Released Date/Time: May 24, 2023 03:03 PM Reporting Lab: [facility] [address] [facility] [address] Per[facility]: [facility] [address] [facility] [address] CHOLESTEROL 173 mg/dL 0-199 TRIGLYCERIDE 44 mg/dL 0-149 HDL CHOLESTEROL 68 mg/dL >40 LDL CHOLESTEROL (CALC) 96 mg/dL 0-129 May 30, 2023 11:35 AM [facility] VITAMIN B-12 Specimen Type: SERUM Comment: Tests performed on [employer] (405) SN:[id number] Ordering Provider: GRETEL NIEVES JR Report Released Date/Time: May 24, 2023 03:03 PM Reporting Lab: [facility] [address] [facility] [address] Performing Lab: [facility] [address] [facility] [address] VITAMIN B-12 905 pg/mL H 200-900 May 30, 2023 11:35 AM [facility] VIT D 25-OH([facility]) Specimen Type: SERUM Comment: Tests performed on [employer] (405) SN:[id number] Ordering Provider: GRETEL NIEVES JR Report Released Date/Time: May 24, 2023 03:03 PM Reporting Lab: [facility] [address] [facility] [address] Performing Lab: [facility] [address] [facility] [address] VIT D 25-OH([facility]) 39.4 ng/mL 20-50 May 30, 2023 11:35 AM [facility] GLYCOHEMOGLOBIN (A1C ONLY) Specimen Type: BLOOD Comment: Tests performed on [employer] (405) SN:[id number] Values obtained from A1C measurements can vary. For typical A1C assays, a reported value of 7.0 could actually be between 6.72 and 7.28 if measured by a reference method. A reported value of 9.0 could actually be between 8.73 and 9.27. Reference http://www.ng [email or web address]/CAPdat a.asp Ordering Provider: GRETEL NIEVES JR Report Released Date/Time: May 24, 2023 03:03 PM Reporting Lab: [facility] [address] [facility] [address] Performing [facility]: [facility] [address] [facility] [address] HEMOGLOBIN A1C 5.0 4.0-5.6 May 30, 2023 11:35 AM [facility] THYROID TESTING [place]ASC[place] Specimen Type: SERUM Comment: Tests performed on [employer] (405) SN:[id number] Ordering Provider: GRETEL NIEVES JR Report Released Date/Time: May 24, 2023 03:03 PM Reporting Lab: [facility] [address] [facility] [address] Performing [facility]: [facility] [address] [facility] [address] T4,FREE 0.9 ng/dL 0.6-1.6 TSH 7.52 u[IU]/mL [...] 2021 ADVANCE DIRECTIVE RICHARD DAN [facility] Encounter Notes: All associated encounter notes This section contains the clinical notes associated to the Encounter. Date/Time Encounter Note(s) Provider Source May 02, 2023 04:22 PM NONVA MEDICATION M GT NOTE: LOCAL TITLE: NonVA Prescription STANDARD TITLE: NONVA MEDICATION MGT NOTE DATE OF NOTE: MAY 02, 2023@16:22 ENTRY DATE: MAY 02, 2023@16:22:48 AUTHOR: CARROLL PETTY EXP COSIGNER: URGENCY: STATUS: COMPLETED Received a prescription with the following Chlorhexidine Gloconate oral rinse .12% Dispense 1 16oz bottle Swish one cap full in mouth undiluted for 30 seconds twice daily after breakfast and before bedtime Refills 2 [facility] [address] [place] [id number] [place] [facility] does not have a community care consult please order and send /garrick/ CARROLL PETTY LPN Signed: 05/02/2023 16:25 Receipt Acknowledged By: * AWAITING SIGNATURE * RANCHO NIEVES JR, [facility]
--- OUTSIDE RECORDS SUMMARY | 2024-04-14 14:03 | XMS_ITS | Encounter Summary ---
Author Name [facility] of [place] Organization [place] Address [address] [place] [address] Care Team Providers Care Banking Representative Name Role Phone LUIS MIGUEL NATE Primary Care Provider Unavailabl e Selected Encounter This section includes the information on record at [place] for the Encounter. Date/Time Encounter Type Encounter Description Reason Provider Source Apr 20, 2023 02:39 PM Outpatient Encounter PRIMARY CARE/MEDICINE [facility] Encounter Template Text not used by [place] [...] 09:30 AM AMBULATORY - MEDICINE [facility] May 08, 2023 10:00 AM AMBULATORY - REHAB MEDICIN E [facility] May 08, 2023 02:30 PM AMBULATORY - MEDICINE [facility] May 14, 2023 08:00 AM AMBULATORY - MEDICINE [facility] May 29, 2023 11:45 AM AMBULATORY - NONE [facility] Jul 04, 2023 03:00 PM AMBULATORY - MEDICINE [facility] Advance Directives: All historical and current [...] Provider Source May 18, 2021 ADVANCE DIRECTIVE WORSHIPRICHARD MAYRA [facility] Encounter Notes: All associated encounter notes This section contains the clinical notes associated to the Encounter. Date/Time Encounter Note(s) Provider Source Apr 20, 2023 02:39 PM PRIMARY CARE FND E MESSAGING: LOCAL TITLE: PRIMARY CARE SECURE MESSAGING STANDARD TITLE: PRIMARY CARE SECURE MESSAGING DATE OF NOTE: APR 20, 2023@14:39 ENTRY DATE: APR 20, 2023@15:39:59 AUTHOR: SAE DOWD EXP COSIGNER: URGENCY: STATUS: COMPLETED ------Original Message Sent: 04/19/2023 06:19 PM ET From: BISMARK HAYWARD To: Maribel [facility] Subject: Medication:Need a refill on prescription i used to have I am in need of a prescription I used to have for triamcinolone acetonide ointment. The issue is back. It happens every summer. Thank you /garrick/ SAE DOWD AMSA Signed: 04/20/2023 15:39 Receipt Acknowledged By: * AWAITING SIGNATURE * VELMA PERSAUD [facility]
== END 2024-04-14 13:49 | disposition home or self-care (01) ==
LOC: LBO 13:49
PROVIDERS: Visit Provider Internal Medicine
DX: Z79.01 Long term (current) use of anticoagulants (principal)
CPT/HCPCS: 36415; 85027; 85610

== ENCOUNTER 2024-06-18 11:55 | Emergency (ER) | payer OTHER, SELFPAY ==
[2024-06-18 12:03] VITALS: BP 132/86; PULSE 57; RESP 12; TEMP 36.5; O2SAT 98
--- NOTE | 2024-06-18 12:40 | ED.GENADUL_ITS ---
Discharge Plan Disposition Patient Disposition: Home Discharge Details Clinical Impression: Neck muscle spasm Primary Care Provider: Unknown,Unknown ED Provider: Codie Knight Home Meds and New Rx's Prescriptions: Continued hydrochlorothiazide 12.5 MG capsule 12.5 mg PO DAILY Qty: 90 3RF phenytoin sodium extended 100 MG capsule 100 mg PO 1 cap AM 2 caps PM Qty: 270 4RF Rx Instructions: Dilantin NAME BRAND ONLY acetaminophen [Mapap Extra Strength] 500 MG tablet 500 mg PO PRN PRN (Reason: Pain) levothyroxine 50 mcg tablet 250 mcg PO DAILY Rx Instructions: Take with 200 mcg tablet cholecalciferol (vitamin D3) [Vitamin D3] 25 mcg (1,000 unit) Tablet 2,000 unit PO DAILY lamotrigine 100 MG tablet 300 mg PO DIRECTED Rx Instructions: 300MG QAM, 400MG QPM warfarin 2.5 mg tablet 2.5 mg PO DAILY Patient Comments: 5 mg on Sunday melatonin 5 mg capsule 5 mg PO HS PRN trazodone 50 mg tablet 50 mg PO QHS PRN famotidine 20 mg tablet 20 mg PO BID sotalol 160 mg tablet 160 mg PO BID multivitamin Tablet 1 tab PO DAILY methocarbamol 500 mg tablet 500 mg PO TID lisinopril 5 MG tablet 10 mg PO DAILY Discharge Instructions Instructions: Muscle Spasm ED Additional Instructions: A referral has been placed for you to follow-up with physical therapy for management of your neck pain. Please call your primary care provider first thing in the morning for follow-up appointment as well. You are being given a limited number of diazepam tablets to help with the muscle spasms. Please note that these cannot be taken with alcohol, as it may cause excessive sleepiness. Do not use while driving. Excessive sleepiness. Do not use while driving. I also recommend the use lidocaine patches, especially at night while you are sleeping or when you are out during the day. When you are not wearing the lidocaine patch, you may use alternating heat and ice. Gentle massage may also be helpful. Return to emergency care if you develop new fevers associated with neck pain, headaches, vision changes, inability to turn your head, weakness or numbness in your arm, or if you are very worried and need to be rechecked again immediately HPI General Date/Time Provider Initiated Documentation: 06/18/24 11:58 . HPI Narrative: Cole is a 48 year old male who presents to the emergency department today for evaluation of right sided neck pain. He reports that started when he woke up 1 week ago, it is described as a muscle spasm that twitches on and off and prevents him from turning his head fully towards the right side. This is aggravated when he lifts his arm or tries to push himself up using the arm. He denies associated fever/chills, unusual headaches, throat swelling/difficulty breathing, numbness or weakness in the arm, joint swelling, change in bowel or bladder function, leg weakness. No history of trauma. He denies history of cancer or pathologic fractures. He saw urgent care 2 days ago and was prescribed Robaxin with no improvement in symptoms. With no improvement of symptoms. [facility]. Physical exam reassuring. No cervical tenderness/step-off/deformity. He does have some decreased range of motion looking towards the right, but full range of motion towards the left. He is able to look up and down without difficulty. He does have tenderness with palpation along paraspinal muscles on the right side and trapezius muscles. 5 out of 5 muscle strength upper extremities, full painless range of motion to arms, though he does note discomfort with lifting his arm or pushing down with his arm on the right side. PERRL, EOMs intact. No cervical or submandibular lymphadenopathy. History and presentation consistent with muscle spasm. No red flags concerning for meningitis, fracture, or other serious etiology requiring diagnostic imaging or emergent blood work at this time. Reviewed symptomatic management and red flags indicating need for return to emergency care. He is agreeable with plan of care. As he is not having any relief with Robaxin, will trial Valium at home. He would benefit greatly from physical therapy. PT referral at the [place] made. Related Data Home Medications ?Medication ?Instructions ?Recorded ?Confirmed acetaminophen 500 mg tablet (Mapap 500 mg PO PRN PRN Pain 04/21/13 06/18/24 Extra Strength) hydrochlorothiazide 12.5 mg capsule 12.5 mg PO DAILY #90 tab-caps 04/05/18 06/18/24 phenytoin sodium extended 100 mg 100 mg PO 1 cap AM 2 caps PM #270 05/09/18 06/18/24 capsule caps cholecalciferol (vitamin D3) 25 2,000 unit PO DAILY 10/10/19 06/18/24 mcg (1,000 unit) tablet (Vitamin D3) lamotrigine 100 mg tablet 300 mg PO DIRECTED 10/10/19 06/18/24 levothyroxine 50 mcg tablet 250 mcg PO DAILY 09/23/22 06/18/24 famotidine 20 mg tablet 20 mg PO BID 06/18/24 06/18/24 lisinopril 5 mg tablet 10 mg PO DAILY 06/18/24 06/18/24 melatonin 5 mg capsule 5 mg PO HS PRN 06/18/24 06/18/24 methocarbamol 500 mg tablet 500 mg PO TID 06/18/24 06/18/24 multivitamin 1 tab PO DAILY 06/18/24 06/18/24 sotalol 160 mg tablet 160 mg PO BID 06/18/24 06/18/24 trazodone 50 mg tablet 50 mg PO QHS PRN 06/18/24 06/18/24 warfarin 2.5 mg tablet 2.5 mg PO DAILY 06/18/24 06/18/24 Previous Rx's ?Medication ?Instructions ?Recorded hydrochlorothiazide 12.5 mg capsule 12.5 mg PO DAILY #90 tab-caps 04/05/18 phenytoin sodium extended 100 mg 100 mg PO 1 cap AM 2 caps PM #270 05/09/18 capsule caps Allergies Allergy/AdvReac Type Severity Reaction Status Date / Time No Known Allergies Allergy Unverified 06/18/24 12:07 General Stated Complaint: Orthopedic JUSTINA: 4 Review of Systems Narrative: see HPI Exam Const General: cooperative, healthy appearing, comfortable, no acute distress, well developed and well groomed Nutritional Appearance: average body habitus Orientation: alert and oriented x3 [facility] Head: normal to inspection Ears: hearing grossly normal bilaterally Mouth: oral mucosae normal and moist mucous membranes Neck Neck: normal visual inspection, no lymphadenopathy, no meningeal signs, trachea midline and supple Resp Effort & Inspection: normal respiratory effort and able to speak in complete sentences Skin General skin exam: no rashes or lesions noted Neuro General: patient alert, patient oriented x3, no meningeal signs and no focal motor deficits Cranial Nerves: PERRL and EOM intact bilaterally Cognition: normal cognition Speech: speech normal Motor: muscle tone normal throughout and strength 5/5 throughout Sensory Exam: no sensory deficits noted Extrem General: normal to inspection and full ROM Course Vital Signs Vital signs: Vital Signs Temperature 36.5 C 06/18/24 12:03 Pulse 57 L 06/18/24 12:03 Respiratory Rate 12 06/18/24 12:03 Blood Pressure 132/86 06/18/24 12:03 Pulse Oximetry 98 06/18/24 12:03 Temperature 36.5 C 06/18/24 12:03 Temperature Source Oral 06/18/24 12:03 Pulse 57 L 06/18/24 12:03 Respiratory Rate 12 06/18/24 12:03 Respiratory Effort Normal 06/18/24 12:17 Blood Pressure 132/86 06/18/24 12:03 Pulse Oximetry 98 06/18/24 12:03 Oxygen Delivery Method Room Air 06/18/24 12:03 Oxygen Flow Rate 0 06/18/24 12:03 Pain Level 5 06/18/24 12:29 Comment Muscle relaxant at 0900. 8/10 at worse 06/18/24 12:03 Medical Decision Making Quality:SDOH Health Related Social Needs: No Data to Display PFSH All Active Problems (Updated 06/18/24 @ 12:43 by Codie Delgadillo) Neck muscle spasm (Acute) Afib (Chronic) Depression (Chronic) Essential hypertension (Chronic 08/07/13) Seizure disorder (Chronic 03/17/13) Obstructive sleep apnea syndrome in adult (Chronic 07/30/08) Mitral valve regurgitation (Chronic 07/30/08) GERD (gastroesophageal reflux disease) (Chronic 07/30/08) Cardiomyopathy (Chronic 07/30/08) Hypothyroid (Chronic) Family History Mother Diabetes Stroke Father Diabetes Essential hypertension Depression Heart disease Neoplasm Asthma Sister Depression Grandfather Heart disease Grandfather Heart disease Myocardial infarction Grandmother No problems noted. Grandmother Essential hypertension Heart disease Son No problems noted. 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
[2024-06-18] MEDS: diazePAM 2 MG TAB 8 MG PO (13:06)
== END 2024-06-18 13:11 | disposition home or self-care (01) ==
LOC: ER 13:00
PROVIDERS: Emergency Provider Nurse Practitioner Family
DX: M62.838 Other muscle spasm (principal)
CPT/HCPCS: 99283; 99284

== ENCOUNTER 2024-09-19 11:04 | Emergency (ER) | payer OTHER, SELFPAY ==
[2024-09-19 11:06] VITALS: BP 130/81; PULSE 81; RESP 16; TEMP 36.7; O2SAT 94
[2024-09-19 11:10] VITALS: BP 130/81; PULSE 81; RESP 16; TEMP 36.7; O2SAT 94
[2024-09-19 11:20] VITALS: RESP 16
--- NOTE | 2024-09-19 11:40 | DI.RAD_ITS ---
Exam(s) XR CHEST 2V PA LATERAL EXAM: XR CHEST 2V PA LATERAL CLINICAL HISTORY: cough TECHNIQUE: 2D digital imaging was performed. Two views. COMPARISON: CR CHEST 2 VIEWS PA,LAT from 04/14/2018 FINDINGS: HEART: Normal size. Aorta: Not dilated. PULMONARY VASCULATURE: Normal. MEDIASTINUM: Unremarkable. LUNGS: Clear. PLEURAL SPACE: No pleural effusion or pneumothorax. BONE:Unremarkable for age. SOFT TISSUES: Unremarkable. IMPRESSION: No acute abnormality. DATA REPOSITORY: RADIATION DOSE DELIVERED:
--- NOTE | 2024-09-19 11:45 | ED.GENADUL_ITS ---
Discharge Plan Disposition Patient Disposition: Home Condition: Stable Discharge Details Clinical Impression: Cough, COVID Primary Care Provider: Unknown,Unknown ED Provider: Ania Hernandez Home Meds and New Rx's Prescriptions: New promethazine 6.25 mg/5 mL syrup 12.5 mg PO Q6H PRN (Reason: cough) Qty: 120 0RF benzonatate 100 mg capsule 100 mg PO TID PRNQty: 30 0RF No Action hydrochlorothiazide 12.5 MG capsule 12.5 mg PO DAILY Qty: 90 3RF phenytoin sodium extended 100 MG capsule 100 mg PO 1 cap AM 2 caps PM Qty: 270 4RF Rx Instructions: Dilantin NAME BRAND ONLY acetaminophen [Mapap Extra Strength] 500 MG tablet 500 mg PO PRN PRN (Reason: Pain) levothyroxine 50 mcg tablet 250 mcg PO DAILY Rx Instructions: Take with 200 mcg tablet fish oil-dha-epa 1 cap PO DAILY fiber Tablet 1 tab PO QAM cholecalciferol (vitamin D3) [Vitamin D3] 25 mcg (1,000 unit) Tablet 2,000 unit PO DAILY lamotrigine 100 MG tablet 300 mg PO DIRECTED Rx Instructions: 300MG QAM, 400MG QPM warfarin 2.5 mg tablet 2.5 mg PO DAILY melatonin 5 mg capsule 5 mg PO HS PRN trazodone 50 mg tablet 50 mg PO QHS PRN famotidine 20 mg tablet 20 mg PO BID sotalol 160 mg tablet 160 mg PO BID multivitamin Tablet 1 tab PO DAILY lisinopril 5 MG tablet 10 mg PO DAILY Discharge Instructions Additional Instructions: Your COVID test today is positive and is the cause of your symptoms this week. You have no signs of pneumonia on chest x-ray so you do not need antibiotics and you are outside of the window for treatment with Paxlovid. I will prescribe cough medications. Make sure you are drinking lots of water. Return to the the emergency department if you start to cough up more blood go short of breath or have other concerns. HPI General Date/Time Provider Initiated Documentation: 09/19/24 11:25 . Limitations to Documentation: no limitations . Information obtained by: patient . HPI Narrative: 49-year-old gentleman with past medical history of cardiomyopathy, A-fib, hypertension on anticoagulation presents for evaluation of 1 week of URI symptoms. Initially symptoms started with runny nose and sore throat. Over the last couple of days he has been having cough productive of thick mucus occasionally there is blood in the mucus. He is not having any paula mopped assist denies any chest pain or shortness of breath reports subjective fever and chills at home last night. Related Data Home Medications ?Medication ?Instructions ?Recorded ?Confirmed acetaminophen 500 mg tablet (Mapap 500 mg PO PRN PRN Pain 04/21/13 09/19/24 Extra Strength) hydrochlorothiazide 12.5 mg capsule 12.5 mg PO DAILY #90 tab-caps 04/05/18 09/19/24 phenytoin sodium extended 100 mg 100 mg PO 1 cap AM 2 caps PM #270 05/09/18 09/19/24 capsule caps cholecalciferol (vitamin D3) 25 2,000 unit PO DAILY 10/10/19 09/19/24 mcg (1,000 unit) tablet (Vitamin D3) lamotrigine 100 mg tablet 300 mg PO DIRECTED 10/10/19 09/19/24 levothyroxine 50 mcg tablet 250 mcg PO DAILY 09/23/22 09/19/24 famotidine 20 mg tablet 20 mg PO BID 06/18/24 09/19/24 lisinopril 5 mg tablet 10 mg PO DAILY 06/18/24 09/19/24 melatonin 5 mg capsule 5 mg PO HS PRN 06/18/24 09/19/24 multivitamin 1 tab PO DAILY 06/18/24 09/19/24 sotalol 160 mg tablet 160 mg PO BID 06/18/24 09/19/24 trazodone 50 mg tablet 50 mg PO QHS PRN 06/18/24 09/19/24 warfarin 2.5 mg tablet 2.5 mg PO DAILY 06/18/24 09/19/24 benzonatate 100 mg capsule 100 mg PO TID PRN #30 caps 09/19/24 fiber 1 tab PO QAM 09/19/24 09/19/24 fish oil-dha-epa 1 cap PO DAILY 09/19/24 09/19/24 promethazine 6.25 mg/5 mL oral 12.5 mg (10 mL) PO Q6H PRN cough 09/19/24 syrup #120 mL Previous Rx's ?Medication ?Instructions ?Recorded hydrochlorothiazide 12.5 mg capsule 12.5 mg PO DAILY #90 tab-caps 04/05/18 phenytoin sodium extended 100 mg 100 mg PO 1 cap AM 2 caps PM #270 05/09/18 capsule caps benzonatate 100 mg capsule 100 mg PO TID PRN #30 caps 09/19/24 promethazine 6.25 mg/5 mL oral 12.5 mg (10 mL) PO Q6H PRN cough 09/19/24 syrup #120 mL Allergies Allergy/AdvReac Type Severity Reaction Status Date / Time No Known Allergies Allergy Unverified 09/19/24 11:09 General Stated Complaint: GenMedical JUSTINA: 3 Exam Narrative Exam Narrative: Review of Systems: All systems reviewed & are unremarkable except as noted in HPI and below Well-developed, no acute distress NCAT RRR no murmur Unlabored respiratory effort no hypoxia, clear bilaterally Nondistended abdomen Extremities w/o edema Course Vital Signs Vital signs: Vital Signs Temperature 36.7 C 09/19/24 11:06 Pulse 81 09/19/24 11:06 Respiratory Rate 16 09/19/24 11:06 Blood Pressure 130/81 09/19/24 11:06 Pulse Oximetry 94 09/19/24 11:06 Temperature 36.7 C 09/19/24 11:10 Temperature Source Oral 09/19/24 11:10 Pulse 81 09/19/24 11:10 Respiratory Rate 16 09/19/24 11:20 Respiratory Effort Normal, Non-Labored 09/19/24 11:20 Respiratory Depth Normal 09/19/24 11:20 Respiratory Pattern Normal 09/19/24 11:20 Blood Pressure 130/81 09/19/24 11:10 Blood Pressure Position Sitting 09/19/24 11:10 Pulse Oximetry 94 09/19/24 11:10 Oxygen Delivery Method Room Air 09/19/24 11:10 Oxygen Flow Rate 0 09/19/24 11:10 Pain Level 2 09/19/24 11:10 Medical Decision Making Emergent evaluation of cough with occasional hemoptysis. Patient is on blood thinner due to A-fib. He is hemodynamically stable, nontachycardic or tachypneic. Initial differential includes bronchitis, pneumonia, less likely pulmonary embolism. COVID test is positive. Chest x-ray was reviewed and independently interpreted, no focal consolidation or cardiomegaly. He is outside the window for Paxlovid or other antiviral medication. He does not need antibiotics. His INR today is 2.2 within the therapeutic window, making pulmonary embolism less likely. He is not exhibiting any signs symptoms or concerns for PE or large-volume hemoptysis. Return precautions advised. Symptomatic cough treatment provided.. Quality:SDOH Health Related Social Needs: No Data to Display PFSH All Active Problems (Updated 09/19/24 @ 12:41 by Ania Hernandez MD) COVID (Acute) Cough (Acute) Afib (Chronic) Depression (Chronic) Essential hypertension (Chronic 08/07/13) Seizure disorder (Chronic 03/17/13) Obstructive sleep apnea syndrome in adult (Chronic 07/30/08) Mitral valve regurgitation (Chronic 07/30/08) GERD (gastroesophageal reflux disease) (Chronic 07/30/08) Cardiomyopathy (Chronic 07/30/08) Hypothyroid (Chronic) Family History Mother Diabetes Stroke Father Diabetes Essential hypertension Depression Heart disease Neoplasm Asthma Sister Depression Grandfather Heart disease Grandfather Heart disease Myocardial infarction Grandmother No problems noted. Grandmother Essential hypertension Heart disease Son No problems noted. 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
[2024-09-19 12:16] LABS: INR 2.2 (0.9-1.1); Prothrombin Time 20.6 sec (9.1-11.1)
[2024-09-19 12:48] VITALS: BP 126/66; PULSE 87; RESP 18; O2SAT 99
== END 2024-09-19 12:49 | disposition home or self-care (01) ==
PROVIDERS: Emergency Provider Emergency Medicine
DX: U07.1 COVID-19 (principal); I48.91 Unspecified atrial fibrillation; I10 Essential (primary) hypertension; Z79.01 Long term (current) use of anticoagulants
CPT/HCPCS: 99283; 99284; 71046; 85610

== ENCOUNTER 2024-11-03 10:41 | Emergency (ER) | payer OTHER, SELFPAY ==
[2024-11-03 11:15] VITALS: BP 129/80; PULSE 65; RESP 18; TEMP 36.6; O2SAT 95
--- NOTE | 2024-11-03 11:30 | DI.RAD_ITS ---
Exam(s) XR CHEST 2V PA LATERAL EXAM: XR CHEST 2V PA LATERAL CLINICAL HISTORY: Cough. TECHNIQUE: 2D digital imaging was performed. COMPARISON: CR XR CHEST 2V PA LATERAL from 09/19/2024 FINDINGS: 2 views: Heart size is normal. The mediastinum is not widened. Lungs are clear. No infiltrates nor pleural effusions. IMPRESSION: No acute pulmonary findings. DATA REPOSITORY: RADIATION DOSE DELIVERED:
[2024-11-03 12:00] VITALS: BP 132/78; PULSE 67; RESP 18; TEMP 36.6; O2SAT 98
--- NOTE | 2024-11-03 12:51 | W.ED.GENAD ---
Discharge Plan Disposition Patient Disposition: Home Discharge Details Clinical Impression: Viral URI with cough Primary Care Provider: Unknown,Unknown ED Provider: David Roman [place] Meds and New Rx's Prescriptions: New promethazine-DM 6.25-15 mg/5 mL syrup 5 ml PO Q6H PRNQty: 118 0RF cetirizine 10 mg tablet 10 mg PO DAILY PRNQty: 7 0RF benzonatate 100 mg capsule 100 mg PO BID PRNQty: 7 0RF fluticasone propionate [Flonase Allergy Relief] 50 mcg/actuation spray,suspension 1 spray intranasal DAILY Qty: 16 0RF Rx Instructions: administer into each nostril Continued hydrochlorothiazide 12.5 MG capsule 12.5 mg PO DAILY Qty: 90 3RF phenytoin sodium extended 100 MG capsule 100 mg PO 1 cap AM 2 caps PM Qty: 270 4RF Rx Instructions: Dilantin NAME BRAND ONLY acetaminophen [Mapap Extra Strength] 500 MG tablet 500 mg PO PRN PRN (Reason: Pain) levothyroxine 50 mcg tablet 250 mcg PO DAILY Rx Instructions: Take with 200 mcg tablet fish oil-dha-epa 1 cap PO DAILY fiber Tablet 1 tab PO QAM cholecalciferol (vitamin D3) [Vitamin D3] 25 mcg (1,000 unit) Tablet 2,000 unit PO DAILY lamotrigine 100 MG tablet 300 mg PO DIRECTED Rx Instructions: 300MG QAM, 400MG QPM warfarin 2.5 mg tablet 2.5 mg PO DAILY melatonin 5 mg capsule 5 mg PO HS PRN trazodone 50 mg tablet 50 mg PO QHS PRN famotidine 20 mg tablet 20 mg PO BID sotalol 160 mg tablet 160 mg PO BID multivitamin Tablet 1 tab PO DAILY lisinopril 5 MG tablet 10 mg PO DAILY Discharge Instructions Instructions: Cough, Adult ED Additional Instructions: You were seen in the emergency for your cough. Your swab was negative for COVID influenza. Your chest x-ray showed no sign of pneumonia. Please take these [id number] medicines as directed. As we discussed if you pass out develop chest pain or difficulty breathing please return to the emergency department. HPI General Date/Time Provider Initiated Documentation: 11/03/24 10:49. HPI Narrative: MDM This is an overall very well-appearing normothermic and not tachycardic 49-year-old male with negative respiratory viral swab and chest x-ray negative for pneumonia for which patient will receive symptomatic treatment for most likely bronchitis. Patient has history of mitral valve regurgitation but is not significantly short of breath does not appear volume overloaded so I did not feel the patient required an echo. Patient also takes warfarin in the setting of his atrial fibrillation however he has not fallen and as result I do not feel he requires CT scan of his head. He is not having chest pain to suggest ACS. No wheezes to suggest reactive airway disease. Uvula midline so my suspicion is low for peritonsillar abscess. Good range of motion in neck so doubt retropharyngeal abscess. Handling secretions making my suspicion low for epiglottitis. Nontoxic so doubt bacterial tracheitis. No pain out of proportion to suggest necrotizing soft tissue infection. Patient I discussed that he should return to the emergency department if he developed any chest pain if he passed out or if he could not breathe. He understood his return indications discharged with empiric trial of expectant outpatient management. HPI This is a 49-year-old man arrived emergency department via private vehicle in the setting of cough for the past month. Patient reports over [place] he was diagnosed with COVID. Is not felt completely better subsequently. He has had a nonproductive cough and has been attempting treatment with [id number] medications. He denies routine tobacco and illicits. He is had not had any fevers shortness of breath chest pain or abdominal pain. No significant sore throat. Exam General: Well-appearing in no acute distress speaking in complete sentences. Head: Normocephalic, atraumatic. Eye: Extraocular eye movements intact. No conjunctival injection. No scleral icterus. Ear, nose, mouth, throat: Grossly normal inspection. Normal voice, handling secretions normally. No significant posterior oropharynx erythema. Uvula midline. Neck: Trachea midline. Cardiovascular: Well-perfused distal extremities. Regular rate and rhythm. Respiratory: Nonlabored respiration. Clear lungs bilaterally. Gastrointestinal: Nondistended abdomen. Musculoskeletal: No significant lower extremity pitting edema. Moving all 4 extremities spontaneously. Skin: Normal for age and race, grossly normal temperature and turgor. No acute rash. Neurologic: Alert and appropriate, no apparent acute deficits. Related Data Home Medications ?Medication ?Instructions ?Recorded ?Confirmed acetaminophen 500 mg tablet (Mapap 500 mg PO PRN PRN Pain 04/21/13 11/03/24 Extra Strength) hydrochlorothiazide 12.5 mg capsule 12.5 mg PO DAILY #90 tab-caps 04/05/18 11/03/24 phenytoin sodium extended 100 mg 100 mg PO 1 cap AM 2 caps PM #270 05/09/18 11/03/24 capsule caps cholecalciferol (vitamin D3) 25 2,000 unit PO DAILY 10/10/19 11/03/24 mcg (1,000 unit) tablet (Vitamin D3) lamotrigine 100 mg tablet 300 mg PO DIRECTED 10/10/19 11/03/24 levothyroxine 50 mcg tablet 250 mcg PO DAILY 09/23/22 11/03/24 famotidine 20 mg tablet 20 mg PO BID 06/18/24 11/03/24 lisinopril 5 mg tablet 10 mg PO DAILY 06/18/24 11/03/24 melatonin 5 mg capsule 5 mg PO HS PRN 06/18/24 11/03/24 multivitamin 1 tab PO DAILY 06/18/24 11/03/24 sotalol 160 mg tablet 160 mg PO BID 06/18/24 11/03/24 trazodone 50 mg tablet 50 mg PO QHS PRN 06/18/24 11/03/24 warfarin 2.5 mg tablet 2.5 mg PO DAILY 06/18/24 11/03/24 fiber 1 tab PO QAM 09/19/24 11/03/24 fish oil-dha-epa 1 cap PO DAILY 09/19/24 11/03/24 benzonatate 100 mg capsule 100 mg PO BID PRN #7 caps 11/03/24 cetirizine 10 mg tablet 10 mg PO DAILY PRN #7 tabs 11/03/24 fluticasone propionate 50 1 spray intranasal DAILY #16 grams 11/03/24 mcg/actuation nasal spray,suspension (Flonase Allergy Relief) promethazine-DM 6.25 mg-15 mg/5 mL 5 ml PO Q6H PRN #118 mL 11/03/24 oral syrup Previous Rx's ?Medication ?Instructions ?Recorded hydrochlorothiazide 12.5 mg capsule 12.5 mg PO DAILY #90 tab-caps 04/05/18 phenytoin sodium extended 100 mg 100 mg PO 1 cap AM 2 caps PM #270 05/09/18 capsule caps benzonatate 100 mg capsule 100 mg PO BID PRN #7 caps 11/03/24 cetirizine 10 mg tablet 10 mg PO DAILY PRN #7 tabs 11/03/24 fluticasone propionate 50 1 spray intranasal DAILY #16 grams 11/03/24 mcg/actuation nasal spray,suspension (Flonase Allergy Relief) promethazine-DM 6.25 mg-15 mg/5 mL 5 ml PO Q6H PRN #118 mL 11/03/24 oral syrup Allergies Allergy/AdvReac Type Severity Reaction Status Date / Time No Known Allergies Allergy Unverified 11/03/24 11:19 General Stated Complaint: RespSymp JUSTINA: 4 Course Vital Signs Vital signs: Vital Signs Temperature 36.6 C 11/03/24 11:15 Pulse 65 11/03/24 11:15 Respiratory Rate 18 11/03/24 11:15 Blood Pressure 129/80 11/03/24 11:15 Pulse Oximetry 95 11/03/24 11:15 Temperature 36.6 C 11/03/24 12:00 Temperature Source Oral 11/03/24 12:00 Pulse 67 11/03/24 12:00 Respiratory Rate 18 11/03/24 12:00 Respiratory Effort Normal 11/03/24 12:00 Respiratory Depth Normal 11/03/24 12:00 Blood Pressure 132/78 11/03/24 12:00 Blood Pressure Position Sitting 11/03/24 12:00 Pulse Oximetry 98 11/03/24 12:00 Oxygen Delivery Method Room Air 11/03/24 12:00 Oxygen Flow Rate 0 11/03/24 12:00 Pain Level 0 11/03/24 12:00 Medical Decision Making Quality:SDOH Health Related Social Needs: No Data to Display PFSH All Active Problems (Updated 11/03/24 @ 12:52 by David Roman MD) Viral URI with cough (Acute) COVID (Acute) Afib (Chronic) Depression (Chronic) Essential hypertension (Chronic 08/07/13) Seizure disorder (Chronic 03/17/13) Obstructive sleep apnea syndrome in adult (Chronic 07/30/08) Mitral valve regurgitation (Chronic 07/30/08) GERD (gastroesophageal reflux disease) (Chronic 07/30/08) Cardiomyopathy (Chronic 07/30/08) Hypothyroid (Chronic) Family History Mother Diabetes Stroke Father Diabetes Essential hypertension Depression Heart disease Neoplasm Asthma Sister Depression Grandfather Heart disease Grandfather Heart disease Myocardial infarction Grandmother No problems noted. Grandmother Essential hypertension Heart disease Son No problems noted. 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
[2024-11-03 12:56] VITALS: BP 125/74; PULSE 81
== END 2024-11-03 13:31 | disposition home or self-care (01) ==
PROVIDERS: Emergency Provider Emergency Medicine
DX: J06.9 Acute upper respiratory infection, unspecified (principal); R05.9 Cough, unspecified
CPT/HCPCS: 87426; 99283; 71046